=== PATIENT | male | born 1955 | race Caucasian/White ===

== ENCOUNTER → 2017-11-07 12:52 | Outpatient (CLI) | payer OTHER, SELFPAY | PROVIDERS: Family Provider Family Medicine; PCP Family Medicine; Visit Provider Family Medicine | DX: N41.0 Acute prostatitis (principal) | CPT/HCPCS: 72110; 74018 ==

== ENCOUNTER → 2017-12-07 16:41 | Outpatient (CLI) | payer OTHER, SELFPAY ==
--- NOTE | 2017-12-07 16:43 | CT_ITS ---
STUDY: CT ABDOMEN AND PELVIS WITH CONTRAST REASON FOR EXAM: Male, 62 years old. Umbilical hernia repair RADIATION DOSAGE (If Supplied By Facility): CTDIvol = ( 18.80 ) mGy, DLP = ( 2151.43 ) mGycm TECHNIQUE: Transaxial images were obtained from the dome of the diaphragm to the symphysis pubis without oral contrast. 100 ml of Isovue 300 contrast was administered. Sagittal and coronal images were reconstructed. Individualized dose optimization techniques were used for this CT. COMPARISON: None. FINDINGS: The lung bases are clear. The liver is normal. No dilated intrahepatic biliary radicles. The gallbladder is normal with no calcifications within it. There is no pericholecystic fluid collection or streakiness The spleen is normal. The pancreas is normal. Both adrenals are normal. The kidneys are normal with no masses, calculi or hydronephrosis The stomach is normal. There is no bowel distention, acute appendicitis or diverticulitis. No constricting lesions are seen in large bowel. A 1.7 cm nodular density is seen within the linea alba in the umbilical region. May represent a small hematoma. A single surgical clip is in the subcutaneous region at the same level There is no ascites or any free intraperitoneal air. No indication of epiploic appendagitis The vascular structures in the retroperitoneum are normal. There is no retrocrural, retroperitoneal or mesenteric adenopathy. Degenerative changes at L2-3 and L5-S1 disc spaces The urinary bladder is normal.--The prostate is normal. There is no inguinal or pelvic adenopathy. There is no inguinal hernia. CT/Abdomen/Pelvis WITH Contrast IMPRESSION: A small 1.7 cm nodular density within the linea alba around the umbilical region. A small postsurgical hematoma is suspected. No acute appendicitis or diverticulitis Electronically Signed: Vu Casey MD at 3:47 EDT Tel , Service support ,
[2017-12-07 17:06] LABS: CREATININE FINGERSTICK 0.9 mg/dL (0.70-1.30); EGFR FINGERSTICK > 60.0000 mL/min (>60)
== END ==
PROVIDERS: Family Provider Family Medicine; PCP Family Medicine; Referring Provider Family Medicine; Visit Provider Family Medicine
DX: R10.9 Unspecified abdominal pain (principal); R34 Anuria and oliguria
CPT/HCPCS: 74177; Q9967

== ENCOUNTER → 2017-12-29 06:19 | Outpatient (CLI) | payer OTHER, SELFPAY ==
[2017-12-29 07:21] LABS: Absolute Lymphocyte Count 1.37 X10^3/ul (0.83-4.51); Absolute Neutrophil Count 3.1 X10^3/uL (2.0-7.7); Basophil# 0.01 X10^3/uL; Basophil% 0.2 % (0-1); Eosinophil# 0.11 X10^3/uL; Eosinophils% 2.2 % (0-5); Hematocrit 42.8 % (40-54); Hemoglobin 14.7 g/dl (13.0-16.5); Lymphocyte # 1.37 X10^3/ul (4.0); Lymphocyte % 27.4 % (19-41); Mean Corp Hgb Conc 34.3 g/gl (32-36); Mean Corpuscular Hgb 29.6 pg (27.0-32.0); Mean Corpuscular Volume 86.3 fL (80-94); Mean Platelet Vol. 9.7 fl (6.2-12.0); Monocyte# 0.42 X10^3/uL; Monocyte% 8.4 % (0-10); Neutrophil # 3.09 X10^3/uL (2.7-7.7); Neutrophil % 61.8 % (47-70); Platelet Count 208 K/mm3 (150-450); RBC Distribution Width CV 14.2 % (11.6-14.6); RBC Distribution Width SD 44.1 fl (35.1-43.9); Red Blood Count 4.96 M/mm3 (4.6-6.2)
[2017-12-29 07:22] LABS: POSITIVE COUNT NO; POSITIVE DIFFERENTIAL NO; POSITIVE MORPHOLOGY NO
[2017-12-29 07:59] LABS: BUN 14 mg/dL (7-18); Creatinine, Serum 1.07 mg/dL (0.70-1.30); EST Glomerular Filtration Rate 74 mL/min (>60); Glucose 81 mg/dL (74-106)
[2017-12-29 08:00] LABS: AST(SGOT) 19 U/L (15-37); Alanine Aminotransfer ALT/SGPT 26 U/L (16-61); Albumin, Serum 3.8 g/dL (3.2-5.0); Alkaline Phosphatase 78 U/L (45-117); Anion Gap 6 (5-15); BUN/Creat Ratio 13.1 RATIO (10-20); Calcium,Total 8.8 mg/dL (8.5-10.1); Chloride 104 mmol/L (98-107); Cholesterol 235 mg/dL (200); Est Glom Filt Rate - Afr Amer 90 mL/min (>60); Globulin 3.7 g/dL (2.2-4.2); High Density Lipoprotein 57 mg/dL; Protein, Total 7.5 g/dL (6.4-8.2); Sodium Level 140 mmol/L (136-145); T4 Free Direct 0.87 ng/dL (0.76-1.46); Thyroid Stim Hormone (TSH) 1.02 uIU/mL (0.358-3.74); Triglycerides 109 mg/dL; Very Low Density Lipoprotein 22 mg/dL (5-40)
[2018-01-02 14:41] LABS: Testosterone, Free 4.61 ng/dL (5.00-21.00)
[2018-01-03 11:02] LABS: Testosterone, % Free 3.05 % (1.50-4.20); Testosterone, Total 151 ng/dL (264-916)
== END ==
PROVIDERS: Family Provider Family Medicine; PCP Family Medicine; Referring Provider Family Medicine; Visit Provider Family Medicine
DX: Z00.00 Encounter for general adult medical examination without abnormal findings (principal); R63.4 Abnormal weight loss; E29.1 Testicular hypofunction; R61 Generalized hyperhidrosis; Z12.5 Encounter for screening for malignant neoplasm of prostate
CPT/HCPCS: 36415; 80053; 80061; 84153; 84402; 84403; 84439; 84443; 85025; G0103

== ENCOUNTER → 2018-03-31 15:23 | Outpatient (CLI) | payer OTHER, SELFPAY ==
[2018-03-31 18:03] LABS: Absolute Lymphocyte Count 1.76 X10^3/ul (0.83-4.51); Absolute Neutrophil Count 2.4 X10^3/uL (2.0-7.7); Basophil# 0.02 X10^3/uL; Basophil% 0.4 % (0-1); Eosinophils% 2.2 % (0-5); Hematocrit 41.1 % (40-54); Hemoglobin 13.8 g/dl (13.0-16.5); Lymphocyte # 1.76 X10^3/ul (4.0); Lymphocyte % 37.8 % (19-41); Mean Corp Hgb Conc 33.6 g/gl (32-36); Mean Corpuscular Hgb 29.7 pg (27.0-32.0); Mean Corpuscular Volume 88.6 fL (80-94); Mean Platelet Vol. 9.9 fl (6.2-12.0); Monocyte# 0.35 X10^3/uL; Monocyte% 7.5 % (0-10); Neutrophil # 2.42 X10^3/uL (2.7-7.7); Neutrophil % 52.1 % (47-70); Platelet Count 182 K/mm3 (150-450); RBC Distribution Width CV 14.2 % (11.6-14.6); RBC Distribution Width SD 45.6 fl (35.1-43.9); Red Blood Count 4.64 M/mm3 (4.6-6.2); White Blood Count 4.7 K/mm3 (4.4-11.0)
[2018-03-31 18:06] LABS: POSITIVE COUNT NO; POSITIVE DIFFERENTIAL NO; POSITIVE MORPHOLOGY NO
[2018-03-31 18:19] LABS: Anion Gap 7 (5-15); BUN 14 mg/dL (7-18); BUN/Creat Ratio 10.6 RATIO (10-20); Calcium,Total 8.8 mg/dL (8.5-10.1); Chloride 106 mmol/L (98-107); Creatinine, Serum 1.32 mg/dL (0.70-1.30); EST Glomerular Filtration Rate 58 mL/min (>60); Est Glom Filt Rate - Afr Amer 70 mL/min (>60); Glucose 98 mg/dL (74-106); Potassium 3.9 mmol/L (3.5-5.1); Sodium Level 141 mmol/L (136-145)
--- OUTSIDE RECORDS SUMMARY | 2018-06-05 05:24 | XMS RPT_ITS ---
:1955 Author Organization OHIP Support Name Relationship Address Phone D Unavailable Unavailable Unavailable DINERO, KINGSLEY Unavailable [address] + [place] [address] D Unavailable Unavailable Unavailable DINERO, KINGSLEY Unavailable [address] + [place] [address] D Unavailable Unavailable Unavailable DINERO, KINGSLEY Unavailable [address] + [place] [address] D Unavailable Unavailable Unavailable DINERO, KINGSLEY Unavailable [address] + [place] [address] D Unavailable Unavailable Unavailable DINERO, KINGSLEY Unavailable [address] + [place] [address] D Unavailable Unavailable Unavailable DINERO, KINGSLEY Unavailable [address] [place] [address] DR + [place] [address] D Unavailable Unavailable Unavailable DINERO, KINGSLEY Unavailable [address] [phone] [place] [address] D Unavailable Unavailable Unavailable DINERO, KINGSLEY Unavailable [address] [place] [address] DR [phone] [place] [address] D Unavailable Unavailable Unavailable DINERO, KINGSLEY Unavailable [address] [place] [address] DR [phone] [place] [address] DINERO, ANDREAS Unavailable Unavailable Unavailable ROSETTE VAUHGN Unavailable Unavailable Unavailable DINERO, ANDREAS Unavailable Unavailable Unavailable DINERO, VAUGHN Unavailable Unavailable Unavailable Care Team Providers Name Role Phone ARCADIO PAGE Attending Unavailable ARCADIO PAGE Referring Unavailable TRUE IBARRA Primary Care Unavailable ARCADIO PAGE Attending Unavailable JENNIE HAYES Referring Unavailable TRUE IBARRA Primary Care Unavailable True Ibarra Attending Unavailable True Ibarra Primary Care Unavailable Reginaldo Nava Attending Unavailable True Ibarra Referring Unavailable Fred, True Primary Care Unavailable Reginaldo Nava Consulting Unavailable Fred, True Attending Unavailable Fred, True Referring Unavailable Fred, True Primary Care Unavailable Jose Martell Attending Unavailable Fred, True Referring Unavailable Fred, True Attending Unavailable Fred, True Primary Care Unavailable Fred, True Referring Unavailable SuppHang perla Attending Unavailable Suppan, Hang Referring Unavailable Fred, True Primary Care Unavailable Fred, True Attending Unavailable Fred, True Primary Care Unavailable Fred, True Referring Unavailable Jennie Hayes Attending Unavailable Fred, True Referring Unavailable Fred, True Primary Care Unavailable Reginaldo Nava Attending Unavailable Fred, True Primary Care Unavailable Fred, True Referring Unavailable PROBLEMS PROBLEMS DATE TYPE CONDITION / CODE ATTENDING STATUS SOURCE 03/31/2018 Unknown Z01.818 - Encounter True Ibarra Active [place] for other [facility] preprocedural Hospital examination / Repository Z01.818(ICD-10) 12/29/2017 Unknown Z12.5 - Encounter True Ibarra Active [place] for screening for Community malignant neoplasm [facility] prostate / Repository Z12.5(ICD-10) 12/29/2017 Unknown R63.4 - Abnormal True Ibarra Active [place] weight loss / Community R63.4(ICD-10) Hospital Repository 12/29/2017 Unknown 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 / Community E29.1(ICD-10) Hospital Repository 12/29/2017 Unknown Z00.00 - Encounter True Ibarra Active [place] for general adult [facility] medical examination Hospital without abnormal Repository findings / Z00.00(ICD-10) 12/13/2017 Unknown R10.9 - Unspecified FredTrue mackey Active [place] abdominal pain / Community R10.9(ICD-10) Hospital Repository 11/07/2017 Unknown N41.0 - Acute FredTrue mackey Active [place] prostatitis / Community N41.0(ICD-10) Hospital Repository 06/08/2017 Unknown D70.9 - Reginaldo Nava Active [place] Neutropenia, Community unspecified / Hospital D70.9(ICD-10) Repository 06/08/2017 Unknown D72.819 - Decreased PraReginaldo boateng Active [place] white blood cell Community count, unspecified Hospital / D72.819(ICD-10) Repository 06/08/2017 Unknown 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 / Community D47.2(ICD-10) Hospital Repository 05/02/2017 Admitting Shoulder Pain / ARCADIO PAGE Active [facility] diagnosis [id number]() [facility] Repository 05/02/2017 Admitting Pain in left ARCADIO PAGE Active [facility] diagnosis shoulder / [facility] M25.512(ICD-10) [facility] Repository PROCEDURES PROCEDURES No Procedure Records FoundRESULTS RESULTS CBC W/DIFF, AUTOMATED Collected: 03/31/2018 Status: F Source: [place] 3:24 PM [facility] REPOSITORY TYPE CODE TESTS RESULT OUT OF RANGE REFERENCE UNITS LAB L100.1000 4.4-11.0 K/mm3 Normal WBC 4.7 LAB L100.1200 4.6-6.2 M/mm3 Normal RBC 4.64 LAB L100.1300 13.0-16.5 g/dl Normal HGB 13.8 LAB L100.1400 40-54 % Normal HCT 41.1 LAB L100.1500 80-94 fL Normal MCV 88.6 LAB L100.1600 27.0-32.0 pg Normal MCH 29.7 LAB L100.1700 32-36 g/gl Normal MCHC 33.6 LAB L100.1810 11.6-14.6 % Normal RDW CV 14.2 LAB L100.1820 35.1-43.9 fl High RDW SD 45.6 LAB L100.1900 150-450 K/mm3 Normal PLT 182 LAB L100.2000 6.2-12.0 fl Normal MPV 9.9 LAB L100.2100 47-70 % Normal NEUT% 52.1 LAB L100.2200 19-41 % Normal LY% 37.8 LAB L100.2300 0-10 % Normal MONO% 7.5 LAB L100.2400 0-5 % Normal EO% 2.2 LAB L100.2500 0-1 % Normal BASO% 0.4 LAB L100.2550 0.0-0.9 % Normal IM GRAN % 0.000 Result Comment: IG% - Immature Granulocytes (promyelocytes, myelocytes and metamyelocytes) > 1% indicates that a LEFT SHIFT is Present. LAB L100.2620 2.0-7.7 X10 3/uL Normal Absolute Neut 2.4 LAB L100.2720 0.83-4.51 X10 3/ul Normal Absolute Lymph 1.76 Performed By: #### L100.0100 #### [facility] [address] [place], [address] BASIC METABOLIC Collected: 03/31/2018 Status: F Source: [place] PROFILE (BMP) 3:24 PM [facility] TYPE CODE TESTS RESULT OUT OF RANGE REFERENCE UNITS LAB L501.0100 74-106 mg/dL Normal GLU 98 Result Comment: Please note revised GLUCOSE reference range effective 2017. LAB L501.1000 7-18 mg/dL Normal BUN 14 LAB L501.1100 0.70-1.30 mg/dL High CREAT,SERUM 1.32 Result Comment: The validity of the calculated GFR AND GFRAA in patients over 70 years has not been determined. Clinical correlation is essential. LAB L501.1110 >60 mL/min Low EST GFR 58 Result Comment: Non- GFR Calc LAB L501.1115 >60 mL/min Normal EST GFR - AA 70 Result Comment: GFR Calc LAB L501.1300 10-20 RATIO Normal BUN/CRE 10.6 LAB L501.2200 8.5-10.1 mg/dL CA Normal 8.8 LAB L501.5300 136-145 mmol/L NA Normal 141 LAB L501.5600 3.5-5.1 mmol/L K Normal 3.9 LAB L501.5900 98-107 mmol/L CL Normal 106 LAB L501.6100 21.0-32.0 mmol/L Normal CO2 28.0 LAB L501.6200 5-15 Normal GAP 7 Performed By: #### L500.2500 #### [facility] [address] [place], [place], [address] CBC W/DIFF, AUTOMATED Collected: 12/29/2017 Status: F Source: [place] 6:22 AM [facility] [place] TYPE CODE TESTS RESULT OUT OF RANGE REFERENCE UNITS LAB L100.1000 4.4-11.0 K/mm3 Normal WBC 5.0 LAB L100.1200 4.6-6.2 M/mm3 Normal RBC 4.96 LAB L100.1300 13.0-16.5 g/dl Normal HGB 14.7 LAB L100.1400 40-54 % Normal HCT 42.8 LAB L100.1500 80-94 fL Normal MCV 86.3 LAB L100.1600 27.0-32.0 pg Normal MCH 29.6 LAB L100.1700 32-36 g/gl Normal MCHC 34.3 LAB L100.1810 11.6-14.6 % Normal RDW CV 14.2 LAB L100.1820 35.1-43.9 fl High RDW SD 44.1 LAB L100.1900 150-450 K/mm3 Normal PLT 208 LAB L100.2000 6.2-12.0 fl Normal MPV 9.7 LAB L100.2100 47-70 % Normal NEUT% 61.8 LAB L100.2200 19-41 % Normal LY% 27.4 LAB L100.2300 0-10 % Normal MONO% 8.4 LAB L100.2400 0-5 % Normal EO% 2.2 LAB L100.2500 0-1 % Normal BASO% 0.2 LAB L100.2550 0.0-0.9 % Normal IM GRAN % 0.000 Result Comment: IG% - Immature Granulocytes (promyelocytes, myelocytes and metamyelocytes) > 1% indicates that a LEFT SHIFT is Present. LAB L100.2620 2.0-7.7 X10 3/uL Normal Absolute Neut 3.1 LAB L100.2720 0.83-4.51 X10 3/ul Normal Absolute Lymph 1.37 Performed By: #### L100.0100 #### [facility] [address] [place], [place], [address] COMPREHENSIVE METABOLIC Collected: 12/29/2017 Status: F Source: [facility] 6:22 AM [facility] Order Comment: Has Patient had X-rays with Contrast this admission? N TYPE CODE TESTS RESULT OUT OF RANGE REFERENCE UNITS LAB L501.0100 74-106 mg/dL Normal GLU 81 Result Comment: Please note revised GLUCOSE reference range effective 2017. LAB L501.1000 7-18 mg/dL Normal BUN 14 LAB L501.1100 0.70-1.30 mg/dL Normal CREAT,SERUM 1.07 Result Comment: The validity of the calculated GFR AND GFRAA in patients over 70 years has not been determined. Clinical correlation is essential. LAB L501.1110 >60 mL/min Normal EST GFR 74 Result Comment: Non- GFR Calc LAB L501.1115 >60 mL/min Normal EST GFR - AA 90 Result Comment: GFR Calc LAB L501.1300 10-20 RATIO Normal BUN/CRE 13.1 LAB L501.1500 6.4-8.2 g/dL T Normal PROT 7.5 LAB L501.1800 3.2-5.0 g/dL Normal ALB 3.8 LAB L501.1950 2.2-4.2 g/dL Normal GLOB 3.7 LAB L501.2000 0.9-2.4 RATIO Normal A/G 1.0 LAB L501.2200 8.5-10.1 mg/dL CA Normal 8.8 LAB L501.4100 15-37 U/L Normal AST 19 LAB L501.4305 45-117 U/L Normal ALK P 78 LAB L501.4405 16-61 U/L Normal ALT 26 LAB L501.4600 0.20-1.00 mg/dL T Normal BILI 0.50 LAB L501.5300 136-145 mmol/L NA Normal 140 LAB L501.5600 3.5-5.1 mmol/L K Normal 4.0 LAB L501.5900 98-107 mmol/L CL Normal 104 LAB L501.6100 21.0-32.0 mmol/L Normal CO2 30.0 LAB L501.6200 5-15 Normal GAP 6 Performed By: #### L500.4050, L500.4100, L501.9520, L501.9910, L506.0400 #### [facility] [address] [place], [address] LIPID PROFILE Collected: 12/29/2017 Status: F Source: [place] 6:22 AM [facility] Order Comment: Has Patient had X-rays with Contrast this admission? N TYPE CODE TESTS RESULT OUT OF RANGE REFERENCE UNITS LAB L501.4900 200 mg/dL High CHOL 235 Result Comment: <200 mg/dL Desirable 200-240 mg/dL Borderline >240 mg/dL High Risk LAB L501.5000 mg/dL Normal TRIG 109 Result Comment: The drugs N-Acetylcysteine and Metamizole may falsely depress this assay. Serum Triglycerides Reference Interval Normal <150 mg/dL Borderline high 150 - 199 mg/dL High 200 - 499 mg/dL Very High > or = 500 mg/dL LAB L501.6400 mg/dL Normal HDL 57 Result Comment: The drugs N-Acetylcysteine and Metamizole may falsely depress this assay. Reference Range HDL <40 mg/dL Low HDL Cholesterol HDL >or= 60 mg/dL High HDL Cholesterol LAB L501.6500 0-130 mg/dL High LDL 156 LAB L501.6600 5-40 mg/dL Normal VLDL 22 Performed By: #### L500.4050, L500.4100, L501.9520, L501.9910, L506.0400 #### [facility] [address] [facility] [place], [address] THYROID STIM HORMONE Collected: 12/29/2017 Status: F Source: [place] (TSH) 6:22 AM [facility] Order Comment: Has Patient had X-rays with Contrast this admission? N TYPE CODE TESTS RESULT OUT OF RANGE REFERENCE UNITS LAB L501.9520 0.358-3.74 uIU/mL Normal TSH 1.02 Performed By: #### L500.4050, L500.4100, L501.9520, L501.9910, L506.0400 #### [facility] [address] [place], [address] PSA,TOTAL - ANNUAL Collected: 12/29/2017 Status: F Source: [place] SCREEN 6:22 AM [facility] Order Comment: Has Patient had X-rays with Contrast this admission? N TYPE CODE TESTS RESULT OUT OF RANGE REFERENCE UNITS LAB L501.9910 0.00-4.00 ng/mL Normal PSA,TOT 0.70 SCREEN Result Comment: This test was performed using the TPSA assay method for the [employer] chemistry system. Values obtained with different assay methods cannot be used interchangably. When changing PSA assays in the course of monitoring a patient, additional sequential testing should be carried out to confirm baseline values. Performed By: #### L500.4050, L500.4100, L501.9520, L501.9910, L506.0400 #### [facility] [address] [place], [address] T4 FREE DIRECT Collected: 12/29/2017 Status: F Source: [place] 6:22 AM [facility] Order Comment: Has Patient had X-rays with Contrast this admission? N TYPE CODE TESTS RESULT OUT OF RANGE REFERENCE UNITS LAB L506.0400 0.76-1.46 ng/dL Normal T4 FREE 0.87 DIRECT Performed By: #### L500.4050, L500.4100, L501.9520, L501.9910, L506.0400 #### [facility] [address] [place], [address] TESTOSTERONE, TOTAL / Collected: 12/29/2017 Status: F Source: [place] FREE 6:22 AM [facility] Order Comment: Has Patient had X-rays with Contrast this admission? N TYPE CODE TESTS RESULT OUT OF RANGE REFERENCE UNITS LAB L3100.5320 264-916 ng/dL Low 151 TESTOSTER,TO UNRULY Result Comment: Adult male reference interval is based on a population of healthy nonobese males (BMI <30) between 19 and 39 years old. Aniceto et.al. JCEM 2017,102;8882-7543. PMID: [id number]. LAB L3100.5340 5.00-21.00 ng/dL Low TESTOSTER,FREE 4.61 LAB L3100.5360 1.50-4.20 % TESTOSTER %FREE Normal 3.05 Result Comment: Performed at: - [facility] [id number] Showroom Sales Assistant: Jose Angel Marks PhD, Phone: [phone] Performed at: [facility] [id number] Showroom Sales Assistant: Toribio Macario MD, Phone: [phone] Performed By: #### L3100.5310 #### [facility] (refer to report for specific site) refer to report for address and phone number ORTHOPEDIC VISIT Observed: 12/13/2017 Status: F Source: [place] REPORT 4:03 PM [facility] [address] [place] [address] OFFICE VISIT Date of Service: 12/13/17 MR#: [id number] Acct: [id number] Name: VAUGHN DINERO Rep #: [id number] : 1955 Provider: BIPIN Garcia Age/Sex: 62/M Location: [facility] Status: Signed with Addenda ADDENDUM by Blaise Valdez on 12/13/17 at 1603 OFFICE PROCEDURES Office Procedure Documentation entered by Blaise Valdez 12/13/17 16:03: Ortho Injections Injections Yes Knee Bilateral Details: Obtained consent for injection. Under sterile conditions, injected the patients right and left knee with a 10cc cocktail of 8cc bupivacaine and 2cc kenalog. The patient tolerated the injection well without any noted complication. Patient should call our office if redness develops, pain worsens or if they have any concerns. 12/13/17 1603 <Electronically signed by Blaise Valdez > Date Blaise Valdez cc: * Signed Intake Intake Visit Reasons: Bilat Knee pain Chief Complaint: Follow-up neutropenia and gammopathy Allergies ketorolac tromethamine [From Toradol] Allergy (Verified 06/09/17 14:32) Shortness of breath pollen extracts Allergy (Verified 06/09/17 14:32) Unknown Sulfa (Sulfonamide Antibiotics) Allergy (Verified 06/09/17 14:32) Swelling tolmetin sodium [From Tolectin] Allergy (Verified 06/09/17 14:32) Hives tetracycline [Tetracycline] Adverse Reaction (Verified 06/09/17 14:32) Other Medications Buspirone HCl 7.5 mg PO DAILY 01/01/14 [History Confirmed 06/09/17] Fexofenadine/Pseudoephedrine [Katherin-D 24 Hour Tablet] 1 ea PO DAILY 01/01/14 [History Confirmed 06/09/17] Multivitamins,Therapeutic [Multivitamin] 1 tab PO DAILY 01/01/14 [History Confirmed 06/09/17] Prasterone (Dhea) [Dhea 25] 25 mg PO DAILY 01/01/14 [History Confirmed 06/09/17] Testosterone [Testim] 5 gm TD DAILY 01/01/14 [History Confirmed 06/09/17] Ibuprofen [Motrin] 800 mg PO TID PRN PRN 01/12/16 [History Confirmed 06/09/17] Oxycodone HCl/Acetaminophen [Oxycodon-Acetaminophen 7.5-325] 1 ea PO TID PRN 09/16/16 [History Confirmed 06/09/17] PFSH Medical History Back problem (Acute) Arthritis (Chronic) GERD (gastroesophageal reflux disease) (Chronic) Hypertension (Chronic) 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 He states that he has dull ache all day but the pain increases at night. He uses aleve at night because his pain medication tends to make him feel wired so he doesnt use them at night. He has mild swelling in the right knee, complains of tightness and anterior knee pain. Denies numbness, tingling or other associated symptoms. He has crepitus. ROS Musc Reports joint pain, Reports joint swelling, Reports limited joint movement, Reports stiffness, Reports as per HPI Ortho Exam Right Knee Swelling: Yes (very minor) Homans Sign: No Knee ROM: Yes ROM-Extension -20 to 0, Yes ROM-Flexion 0-140 Examination: Yes Med jt line tenderness, Yes Lat jt line tenderness, No TTP inf pole patella, Yes Crepitus, No Pain with flexion, No Pain with extention, No Dennis's Test Quad Atrophy: No Stability: NML: Anterior Drawer, NML: Posterior Drawer Popliteal Adenopathy: No Patella Grind: Yes KNEE: Patient has FROM with some evident crepitus / grinding with movements. He has normal 5/5 strength today. Some bilateral joint line pains with a negative [place]. Left Knee Swelling: Yes Homans Sign: No Knee ROM: Yes ROM-Extension -20 to 0, Yes ROM-Flexion 0-140 Examination: Yes med jt line tenderness, Yes Lat jt line tenderness, No TTP inf pole patella, Yes Crepitus, No Dennis's Test, No Pain with flexion Quad Atrophy: No Stability: NML: Anterior Drawer, NML: Posterior Drawer Popliteal Adenopathy: No Patella Grind: Yes KNEE: patient has FROM of the knee with evident crepitus / grinding with movements. He has normal 5/5 strength today in office. He has bilateral joint line pains with a negative [place]rays. Assessment AND Plan Problems 1. Osteoarthritis, multiple sites M15.9 2. Arthritis of both knees M17.0 Plan Patient has history of knee pains due to osteoarthritis. He has had injections in the past and would like to proceed with injections into the knee again today. We discussed physical therapy and even looking into possible gel injections depending on the duration of relief he has. We discussed that if he does require another injection after 3 months that we should repeat X-rays at that time as it has been a year. Notify of any other pains / problems in the mean time. Coding Level of Care Code Off vis,est,level 3 Diagnoses Osteoarthritis, multiple sites M15.9 Arthritis of both knees M17.0 12/13/17 1345 <Electronically signed by Martell VOSS> Date Martell VOSS Cosigner Signature: Date (if applicable) CC: CREATININE FINGERSTICK Collected: 12/07/2017 Status: F Source: [place] 5:00 PM [facility] TYPE CODE TESTS RESULT OUT OF RANGE REFERENCE UNITS LAB L9100.0210 0.70-1.30 mg/dL Normal CREATININE WB 0.9 LAB L9100.0220 >60 mL/min EGFR WB Normal > 60.0000 Performed By: #### L9100.0200 #### [facility] Point of Care [address] [place] [address] ABDOMEN/PELVIS WITH Observed: 12/07/2017 Status: F Source: [place] CONTRAST 4:44 PM [facility] Imaging Services [address] [place] [address] Abdomen/Pelvis WITH Contrast MR#: [id number] Acct: [id number] Name: VAUGHN DINERO Rep #: [id number] : 1955 M 62 From: Vu Casey MD PCP: True Ibarra DO Status: REG CLI Study: Abdomen/Pelvis WITH Contrast Date of Exam: 12/07/17 Exam# [id number] Ordering Dr: True Ibarra DO STUDY: CT ABDOMEN AND PELVIS WITH CONTRAST REASON FOR EXAM: Male, 62 years old. Umbilical hernia repair RADIATION DOSAGE (If Supplied By Facility): CTDIvol = ( 18.80 ) mGy, DLP = ( 2151.43 ) mGycm TECHNIQUE: Transaxial images were obtained from the dome of the diaphragm to the symphysis pubis without oral contrast. 100 ml of Isovue 300 contrast was administered. Sagittal and coronal images were reconstructed. Individualized dose optimization techniques were used for this CT. COMPARISON: None. FINDINGS: The lung bases are clear. The liver is normal. No dilated intrahepatic biliary radicles. The gallbladder is normal with no calcifications within it. There is no pericholecystic fluid collection or streakiness The spleen is normal. The pancreas is normal. Both adrenals are normal. The kidneys are normal with no masses, calculi or hydronephrosis The stomach is normal. There is no bowel distention, acute appendicitis or diverticulitis. No constricting lesions are seen in large bowel. A 1.7 cm nodular density is seen within the linea alba in the umbilical region. May represent a small hematoma. A single surgical clip is in the subcutaneous region at the same level There is no ascites or any free intraperitoneal air. No indication of epiploic appendagitis The vascular structures in the retroperitoneum are normal. There is no retrocrural, retroperitoneal or mesenteric adenopathy. Degenerative changes at L2-3 and L5-S1 disc spaces The urinary bladder is normal.--The prostate is normal. There is no inguinal or pelvic adenopathy. There is no inguinal hernia. CT/Abdomen/Pelvis WITH Contrast IMPRESSION: A small 1.7 cm nodular density within the linea alba around the umbilical region. A small postsurgical hematoma is suspected. No acute appendicitis or diverticulitis Electronically Signed: Vu Casey MD at 3:47 EDT Tel , Service support , CC: True Ibarra DO Nutrition Faculty Member: Signed ABDOMEN SINGLE VIEW Observed: 11/07/2017 Status: F Source: [place] 1:20 PM [facility] Imaging Services [address] [place] [address] Abdomen Single View MR#: [id number] Acct: [id number] Name: VAUGHN DINERO Rep #: [id number] : 1955 M 62 From: Sony Rudolph MD PCP: True Ibarra DO Status: REG CLI Study: Abdomen Single View Date of Exam: 11/07/17 Exam# [id number] Ordering Dr: True Ibarra DO STUDY: X-RAY - ABDOMEN/PELVIS REASON FOR EXAM: Male, 62 years old. Right lower posterior back pain. TECHNIQUE: Two AP supine views of the abdomen and pelvis. COMPARISON: None. FINDINGS: Non-visualized lung bases. There is an unremarkable bowel gas pattern. There is no demonstrated free abdominal air. The visualized liver and spleen are grossly normal in size and morphology. Punctate calcifications projecting over the upper poles of the renal shadows suggest bilateral nephrolithiasis. Normal soft tissue structures. There are degenerative changes of the lower lumbar spine and bilateral sacroiliac joints. RAD/Abdomen Single View IMPRESSION: 1. Nonspecific bowel gas pattern. 2. Bilateral nephrolithiasis, perhaps better seen on oblique views of the lumbar spine also done today. 3. Degenerative changes of the lower lumbar spine and sacroiliac joints. Electronically Signed: Matt Rudolph MD at 15:59 EDT , Service support , CC: True Ibarra DO Nutrition Faculty Member: Signed L/S SPINE MIN 4 Observed: 11/07/2017 Status: F Source: [place] VIEWS 1:20 PM [facility] Imaging Services [address] [place] [address] L/S Spine Min 4 Views MR#: [id number] Acct: [id number] Name: VAUGHN DINERO Rep #: [id number] : 1955 M 62 From: Sony Rudolph MD PCP: True Ibarra DO Status: REG CLI Study: L/S Spine Min 4 Views Date of Exam: 11/07/17 Exam# [id number] Ordering Dr: True Ibarra DO STUDY: X-RAY - LUMBAR SPINE REASON FOR EXAM: Male, 62 years old. Right posterior lower back pain. TECHNIQUE: 5 view(s) of the lumbar spine were obtained. COMPARISON: None FINDINGS: Normal lumbar lordosis. There is no substantial scoliosis. There is minor grade 1 anterolisthesis of L4 on L5 and slight retrolisthesis of L2 on L3. There is multilevel endplate spondylosis of the lumbar vertebrae. There is multi-level degenerative disc disease with multi-level disc space narrowing. There is no demonstrated osseous destructive lesion or fracture. Hypertrophic degenerative arthroses are noted in the mid to lower lumbar facet joints. There are also degenerative arthrosis of the bilateral sacroiliac joints. Small stones project in the upper poles of the bilateral kidneys. RAD/L/S Spine Min 4 Views IMPRESSION: 1. Degenerative changes of the spine and sacroiliac joints, as detailed above. 2. Bilateral nephrolithiasis. Electronically Signed: Matt Rudolph MD at 16:01 EDT , Service support , CC: True Ibarra DO Nutrition Faculty Member: Signed ORTHOPEDIC VISIT Observed: 07/08/2017 Status: F Source: NIKKI REPORT 10:16 AM [facility] [place] [facility] Orthopaedics AND Sports Medicine [address] [place] [address] OFFICE VISIT Date of Service: 07/08/17 MR#: [id number] Acct: [id number] Name: VAUGHN DINERO Rep #: [id number] : 1955 Provider: Jennie Hayes DO Age/Sex: 62/M Location: [facility] [place] Status: Signed Intake Intake Visit Reasons: BILAT KNEE Chief Complaint: Follow-up neutropenia and gammopathy Allergies ketorolac tromethamine [From Toradol] Allergy (Verified 06/09/17 14:32) Shortness of breath pollen extracts Allergy (Verified 06/09/17 14:32) Unknown Sulfa (Sulfonamide Antibiotics) Allergy (Verified 06/09/17 14:32) Swelling tolmetin sodium [From Tolectin] Allergy (Verified 06/09/17 14:32) Hives tetracycline [Tetracycline] Adverse Reaction (Verified 06/09/17 14:32) Other Medications Buspirone HCl [Buspirone HCl] 7.5 mg PO DAILY 01/01/14 [History Confirmed 06/09/17] Fexofenadine/Pseudoephedrine [Katherin-D 24 Hour Tablet] 1 ea PO DAILY 01/01/14 [History Confirmed 06/09/17] Multivitamins,Therapeutic [Multivitamin] 1 tab PO DAILY 01/01/14 [History Confirmed 06/09/17] Prasterone (Dhea) [Dhea 25] 25 mg PO DAILY 01/01/14 [History Confirmed 06/09/17] Testosterone [Testim] 5 gm TD DAILY 01/01/14 [History Confirmed 06/09/17] Ibuprofen [Motrin] 800 mg PO TID PRN PRN 01/12/16 [History Confirmed 06/09/17] Oxycodone HCl/Acetaminophen [Oxycodon-Acetaminophen 7.5-325] 1 ea PO TID PRN 09/16/16 [History Confirmed 06/09/17] PFSH Medical History Back problem (Acute) Arthritis (Chronic) GERD (gastroesophageal reflux disease) (Chronic) Hypertension (Chronic) 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) Surgical History S/P hernia repair (Inactive) Status post reverse total shoulder replacement (Inactive) s/p elbows (Inactive) s/p feet (Inactive) s/p forearms (Inactive) s/p hands (Inactive) s/p neck (Inactive) s/p shoulders (Inactive) Family History Mother Lung cancer Father Cancer Depression Social History Smoking Status: Never smoker HPI BILAT KNEE: Details: VAUGHN DINERO is a 62 year old M here today for Ortho Exam Right Knee Skin/Wound: Yes CDI Contralateral Normal: Yes Swelling: No Homans Sign: No Knee ROM: Yes ROM-Extension -20 to 0, Yes ROM-Passive Flexion 0-140, Yes ROM-Flexion 0-140, Yes ROM-Passive Extension -10 to 0 Examination: Yes TTP inf pole patella, Yes Pain with flexion, Yes Crepitus, No Med jt line tenderness, No Lat jt line tenderness, No Pain with extention, No Dennis's Test, No Dial at 90, No Dial at 60, No Duck Walk Quad Atrophy: No Stability: NML: Anterior Drawer, NML: Marco, NML: Posterior Drawer, NML: Valgus 0, NML: Valgus 30, NML: Varus 0, NML: Varus 30, NML: Dial 90, NML: Dial 30 Popliteal Adenopathy: No Apprehension with Lateral Translation: No Patellar Tilt Normal: Yes Patella Grind: No Left Knee Skin/Wound: Yes CDI Contralateral Normal: Yes Swelling: No Homans Sign: No Knee ROM: Yes ROM-Extension -20 to 0, Yes ROM-Flexion 0-140, Yes ROM-Passive Extension -10 to 0, Yes ROM-Passive Flexion 0-140 Examination: No med jt line tenderness, No Lat jt line tenderness, Yes TTP inf pole patella, Yes Crepitus, Yes Pain with flexion, No Dennis's Test, No Dial at 90, No Dial at 60, No Duck Walk Quad Atrophy: No Stability: NML: Anterior Drawer, NML: Marco, NML: Posterior Drawer, NML: Valgus 0, NML: Valgus 30, NML: Varus 0, NML: Varus 30, NML: Dial 90, NML: Dial 30 Popliteal Adenopathy: No Apprehension with Lateral Translation: No Patellar Tilt Normal: Yes Patella Grind: No Office Procedures Ortho Injections Injections Yes Knee Bilateral Details: Obtained consent for injection. Under sterile conditions, injected the patients bilateral knee with a 10cc cocktail of 8cc bupivacaine and 2cc kenalog each. The patient tolerated the injection well without any noted complication. Patient should call our office if redness develops, pain worsens or if they have any concerns. 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 Chronic pain of both knees M25.561; M25.562; G89.29 2. Internal derangement of both knees M23.91; M23.92 Plan Assessment: Bilateral knee pain bilateral internal derangement. Plan: This point time it sounds like patient to have a little bit of overuse symptoms and pocketing some Hoffa pad and perhaps some patellofemoral pain off and working out. Patient this point time would like to try some injections which I think is appropriate. The patient that he would fail this I did send him for formal physical therapy but he is a very active male who tries to stay athletically fit I think he can go home exercise program as well which we will provide. Obtained consent for injection. Under sterile conditions, injected the patients right knee with a 10cc cocktail of 8cc bupivacaine and 2cc kenalog. The patient tolerated the injection well without any noted complication. Patient should call our office if redness develops, pain worsens or if they have any concerns. Obtained consent for injection. Under sterile conditions, injected the patients left knee with a 10cc cocktail of 8cc bupivacaine and 2cc kenalog . The patient tolerated the injection well without any noted complication. Patient should call our office if redness develops, pain worsens or if they have any concerns. i n the context of follow-up with me 3 months as needed. Patient requires further treatment he can see me until I leave my practice in September otherwise he can follow-up with my partner. Orders Orders: Medications Discontinued: Kenalog (triamcinolone acetonide) D4 mg (0.4 mL) IM ONCE NS M25.561, M25.562 Allyssa Pace iscontinued Reason: Office Medication has been Documented as given Coding Level of Care Code No Charge Diagnoses Chronic pain of both knees M25.561; M25.562; G89.29 Chronicity: chronic Internal derangement of both knees M23.91; M23.92 Additional Codes bilingual nanny.knee (20678) 07/08/17 1016 <Electronically signed by Jennie COFFMAN Date Jennie Hayes DO Cosigntawanna Signature: Date (if applicable) CC: ONCOLOGY VISIT REPORT Observed: 06/09/2017 Status: F Source: NIKKI 2:57 PM [facility] [place] [facility] [place] [address] OFFICE VISIT Date of Service: 06/09/17 1450 MR#: [id number] Acct: [id number] Name: VAUGHN DINERO Rep #: [id number] : 1955 From: Reginaldo Nava MD Age/Sex: 62/M Location: OMD Status: Signed Subjective - Date of Service Date of Service:: 06/09/17 - Chief Complaint Follow-up neutropenia and gammopathy - History of Present Illness 62y.o.man presented with Leukopenia/Neutropenia, had a bone marrow bx on 07/02/2014 which showed Normocellular bone marrow, Trilineage hematopoiesis with no significant pathologic change. He is on observation. Comes in for follow up. - Past Medical/Social History Past Medical History Past Medical History: Arthritis,GERD,Hernia,Hypertension Other Past Medical History: Prostate Back problems Hormone def. feet Left shoulder x 5 Left shoulder replacement Mar 2016 Other Cancer History: Idiopathic Neutroprnia Family History Paternal Past Medical History: Emphysema Paternal History of Cancer Bladder cancer Maternal History of Cancer: Brain cancer,Lung cancer Social History Smoking Status Never smoker Review of Systems Constitutional:: Denies: Fever, Sweats, Weight loss, Appetite change, Chills Cardiovascular:: Denies: Chest pain, Palpitations, Dyspnea on exertion, Orthopnea, PND, Shortness of breath Respiratory: Denies: Cough, Hemoptysis, Shortness of Breath, Wheezing Gastrointestinal:: Denies: Abdominal pain, Nausea, Vomiting, Diarrhea, Constipation, Hematochezia Genitourinary: Denies: Dysuria, Hematuria, 15, Flank pain Musculoskeletal:: Denies: Back pain, Myalgia, Arthralgia Skin: Denies: Rash, Skin Changes, Wounds Neurological:: Denies: Headache, Dizziness, Visual changes, Tinnitus, Hearing loss Psychiatric: Denies: Anxiety, Depression, Homicidal Ideations, Suicidal Ideations Vital Signs Height 56 ft 10.75 in Weight: 89.811 kg Weight in Pounds 198.0 lbs Pulse Ox 97 - Physical Exam General: Alert, Oriented x3, No apparent distress HEENT: Atraumatic, PERRLA, EOMI, Normocephalic Oropharynx:: Dry mucosa Neck:: Supple, Trachea midline. Negative for: JVD, bilateral Cardiac:: Regular rate, Regular rhythm, Normal S1, Normal S2. Negative for: Murmur Lungs: Clear to auscultation, Excusion symmetrical. Negative for: Rhonchi, Wheezes Abdomen:: Bowel sounds x 4, Soft, Non-tender, Non-distended. Negative for: Hepatosplenomegaly Extremities:: Negative for: Cyanosis, Edema Neurological: Neuro grossly intact Skin:: Negative for: Lesions, Rash, Petechiae, Ecchymosis Psychiatric:: Appropriate affect, Euthymic Lymphatics:: Negative for: Cervical lymphadenopathy, Supraclavicular lymphadenopathy, Axillary lymphadenopathy Laboratory Data: Laboratory Tests WBC 3.9 L Absolute Neuts (auto) 2.1 Creatinine 1.12 Calcium 9.1 IgG 845 IgA 228 IgM 36 Assessment and Plan Leukopenia, neutropenia resolved. Asymptomatic. No monoclonal proteins. Plan is to continue observation. RTC 1 yr with cbc, cmp. Medications: Prescriptions This Visit Medication Instructions Recorded Oxycodone HCl/Acetaminophen 1 ea PO TID PRN 09/16/16 [Oxycodon-Acetaminophen 7.5-325] Primary Care Provider: True Ibarra DO Referring Provider: True Ibarra DO - Problem List (1) Leukopenia Status: Chronic Qualifiers: Neutropenia type: unspecified (2) Gammopathy Status: Resolved Code Visit Office Visits / Consults: 08990 OV L3 Est 06/09/17 1457 <Electronically signed by Regnialdo Nava MD> Date Reginaldo Nava MD Cosigner Signature: Date (if applicable) CC: CBC W/DIFF, AUTOMATED Collected: 06/06/2017 Status: F Source: NIKKI 9:06 AM [facility] [place] Order Comment: Reason for Laboratory Test . TYPE CODE TESTS RESULT OUT OF RANGE REFERENCE UNITS LAB L100.1000 4.4-11.0 K/mm3 Low WBC 3.9 LAB L100.1200 4.6-6.2 M/mm3 Normal RBC 4.74 LAB L100.1300 13.0-16.5 g/dl Normal HGB 13.9 LAB L100.1400 40-54 % Normal HCT 40.0 LAB L100.1500 80-94 fL Normal MCV 84.4 LAB L100.1600 27.0-32.0 pg Normal MCH 29.3 LAB L100.1700 32-36 g/gl Normal MCHC 34.8 LAB L100.1810 11.6-14.6 % Normal RDW CV 14.0 LAB L100.1820 35.1-43.9 fl Normal RDW SD 42.7 LAB L100.1900 150-450 K/mm3 Normal PLT 245 LAB L100.2000 6.2-12.0 fl Normal MPV 9.5 LAB L100.2100 47-70 % Normal NEUT% 54.8 LAB L100.2200 19-41 % Normal LY% 36.1 LAB L100.2300 0-10 % Normal MONO% 7.0 LAB L100.2400 0-5 % Normal EO% 1.3 LAB L100.2500 0-1 % Normal BASO% 0.8 LAB L100.2550 0.0-0.9 % Normal IM GRAN % 0.000 Result Comment: IG% - Immature Granulocytes (promyelocytes, myelocytes and metamyelocytes) > 1% indicates that a LEFT SHIFT is Present. LAB L100.2620 2.0-7.7 X10 3/uL Normal Absolute Neut 2.1 LAB L100.2720 0.83-4.51 X10 3/ul Normal Absolute Lymph 1.39 Performed By: #### L100.0100, L500.4050 #### [facility] [address] [place], [place], [address] COMPREHENSIVE METABOLIC Collected: 06/06/2017 Status: F Source: [facility] 9:06 AM [facility] [place] Order Comment: Reason for Laboratory Test . TYPE CODE TESTS RESULT OUT OF RANGE REFERENCE UNITS LAB L501.0100 74-106 mg/dL Normal GLU 102 Result Comment: Fasting Glucose result from 100 to 125 mg/dL suggests IMPAIRED HOMEOSTASIS per A.D.A. criteria. Please note revised GLUCOSE reference range effective 2017. LAB L501.1000 7-18 mg/dL Normal BUN 11 LAB L501.1100 0.70-1.30 mg/dL Normal CREAT,SERUM 1.12 Result Comment: The validity of the calculated GFR AND GFRAA in patients over 70 years has not been determined. Clinical correlation is essential. LAB L501.1110 >60 mL/min Normal EST GFR 70 Result Comment: Non- GFR Calc LAB L501.1115 >60 mL/min Normal EST GFR - AA 85 Result Comment: GFR Calc LAB L501.1255 ml/min Normal Estimated CRCL 69.70 LAB L501.1300 10-20 RATIO Low BUN/CRE 9.8 LAB L501.1500 6.4-8. g/dL Normal 2 T PROT 7.6 LAB L501.1800 3.2-5. g/dL Normal 0 ALB 3.7 LAB L501.1950 2.2-4. g/dL Normal 2 GLOB 3.9 LAB L501.2000 0.9-2. RATIO Normal 4 A/G 0.9 LAB L501.2200 8.5-10 mg/dL Normal .1 CA 9.1 LAB L501.4100 15-37 U/L Normal AST 27 LAB L501.4305 45-117 U/L Normal ALK P 107 LAB L501.4405 16-61 U/L Normal ALT 32 Result Comment: Please note revised ALT reference range effective 2017. LAB L501.4600 0.20-1.00 mg/dL Normal T BILI 0.30 LAB L501.5300 136-145 mmol/L Normal NA 141 LAB L501.5600 3.5-5.1 mmol/L Normal K 4.3 LAB L501.5900 98-107 mmol/L High CL 109 LAB L501.6100 21.0-32.0 mmol/L Normal CO2 27.0 LAB L501.6200 5-15 Normal GAP 5 Performed By: #### L100.0100, L500.4050 #### [facility] [address] [place], [address] ALINA + PROTEIN ELECT, Collected: 06/06/2017 Status: F Source: [facility] 9:06 AM [facility] [place] [facility] Order Comment: Reason for Laboratory Test . Is Patient Fasting? N TYPE CODE TESTS RESULT OUT OF RANGE REFERENCE UNITS LAB L3100.3500 6.0-8.5 g/dL Normal PROTEIN,TOTAL 6.9 LAB L3200.9053 509-5872 mg/dL Normal IMMUNO G 845 LAB L3200.1400 61-437 mg/dL Normal IMMUNO A 228 LAB L3200.1500 20-172 mg/dL Normal IMMUNOGL M 36 LAB L3200.1510 2.9-4.4 g/dL Normal ALBUMIN 3.6 LAB L3200.1520 0.0-0.4 g/dL Normal JRAVE-7-WZRD 0.3 LAB L3200.1530 0.4-1.0 g/dL Normal DXRCA-4-ADQK 0.9 LAB L3200.1540 0.7-1.3 g/dL Normal BETA GLOBULIN 1.3 LAB L3200.1550 0.4-1.8 g/dL Normal GAMMA GLOBULIN 0.9 LAB L3200.1560 Normal M-SPIKE Result Comment: NOT OBSERVED LAB L3200.1570 2.2-3.9 g/dL Normal GLOBULIN, TOTAL 3.3 LAB L3200.1580 0.7-1.7 A/G Normal RATIO 1.1 LAB L3200.1590 . ALINA Normal RESULT,S Comment Result Comment: No monoclonality detected. LAB L3200.1594 . Normal NOTE: Comment Result Comment: Protein electrophoresis scan will follow via computer, mail, or acid washer operator delivery. Performed By: #### L3100.3425, L3130.0010 #### [facility] (refer to report for specific site) refer to report for address and phone number KAPPA LAMBDA LIGHT Collected: 06/06/2017 Status: F Source: NIKKI [facility]AINS 9:06 AM [facility] [place] Order Comment: Reason for Laboratory Test . Is Patient Fasting? N TYPE CODE TESTS RESULT OUT OF RANGE REFERENCE UNITS LAB L3130.0200 3.3-19.4 mg/L Normal FR KAPPA LT 16.3 CHN LAB L3130.0300 5.7-26.3 mg/L Normal FR LAMBDA LT 13.6 CH LAB L3130.0400 0.26-1.65 Normal KAPPA/LAMBDA 1.20 % Result Comment: Performed at: [facility] [id number] Showroom Sales Assistant: Jose Angel Marks PhD, Phone: [phone] Performed By: #### L3100.3425, L3130.0010 #### [facility] (refer to report for specific site) refer to report for address and phone number ALLERGIES ALLERGIES DATE TYPE / CODE NAME / CODE REACTION SEVERITY SOURCE 03/31/2018 Drug tolmetin Hives Unknown [place] Allergy/416 sodium/[id number] [facility] 567007([facility] 9(RXNORM) [facility] ED [place]) Repository 03/31/2018 Drug ketorolac Shortness of Unknown [place] Allergy/416 tromethamine/F00 breath Community 236038([facility] 7087696(RXNORM) [facility] ED [place]) Repository 03/31/2018 Drug Sulfa Swelling Unknown [place] Allergy/416 (Sulfonamide Community 894740(SN Antibiotics)/F00 Hospital ED [place]) 7501234(RXNORM) Repository 03/31/2018 Drug tetracycline/F00 Other Unknown [place] Allergy/922 7723938(RXNORM) Community 566523([facility] Hospital ED CT) Repository 03/31/2018 Drug pollen Unknown Unknown [place] Allergy/416 extracts/F816507 Community 345537([facility] 102(RXNORM) [facility] ED CT) Repository ENCOUNTERS ENCOUNTERS ADMIT/DISCHARGE ACCOUNT NUMBER ADMITTING ENCOUNTER LOCATION SOURCE CLASS 04/05/2018/04/05/19 [id number] Ambulatory [address] ding:SDCRoom Repository : AC20 03/31/2018 [id number] Ambulatory [facility] ding:BFHLAB Repository 12/29/2017 [id number] Ambulatory [facility] ding:LAB.FUT Repository URE 12/13/2017/12/14/19 [id number] Ambulatory BMSBuilding: Nikki 18 [facility] Repository 12/07/2017 [id number] Ambulatory [facility] ding:CT Repository 11/07/2017 [id number] Ambulatory [facility] ding:MTRAD Repository 07/08/2017/07/09/19 [id number] Ambulatory BMSBuilding: [place] 18 BMS.[facility] Repository 06/09/2017 [id number] Ambulatory BMSBuilding: [place] BMS.CF.[facility] Repository 06/09/2017 [id number] Ambulatory [facility] ding:OMD Repository 05/02/2017 [id number] Ambulatory Building:[facility] Repository 05/02/2017 [id number] Ambulatory Building:[facility] Repository PAYERS PAYERS ENCOUNTER GUARANTOR PAYER SUBSCRIBER SOURCE 04/05/2018 VAUGHN [id number] Primary VAUGHN F FRYDOB: [facility] Insurance:CARESOURCE [id number] [place] [address]Tel: (330) Number: Repository [phone] () [id number] Date:7806-03-16Ku [address] [address]WI: 04/05/2018 Secondary NOT GIVENUNK [place] Insurance:SELF PAY Community INSURANCEPolicy Number: Hospital Effective Repository Date:2018-03-21 03/31/2018 VAUGHN F [id number] Primary VAUGHN F FRYDOB: [place] Insurance:CARESOURCE [id number] [place] [address]Tel: (330) Number: Repository [phone] () [id number] Date:5194-73-10Ki [address] [address]SS: 03/31/2018 Secondary NOT GIVENUNK [place] Insurance:SELF PAY Community INSURANCEPolicy Number: Hospital Effective Repository Date:2018-03-31 12/29/2017 VAUGHN F [id number] Primary VAUGHN F FRYDOB: [place] Insurance:CAR[employer]OURCE [id number] [place] [address]Tel: (330) Number: Repository [phone] () [id number] Date:9764-11-86Hh [address] [address]ZP: 12/29/2017 Secondary NOT GIVENUNK [place] Insurance:SELF PAY Community INSURANCEPolicy Number: Hospital Effective Repository Date:2017-12-28 12/13/2017 VAUGHN F [id number] Primary VAUGHN F FRYDOB: [place] Insurance:CARESOURCE [id number] [place] [address]Tel: (330) Number: Repository [phone] () [id number] Date:1236-97-12Qi [address] [address]VC: 12/13/2017 Secondary NOT GIVENUNK [place] Insurance:SELF PAY Community INSURANCEPolicy Number: Hospital Effective Repository Date:2017-12-08 12/07/2017 VAUGHN Meléndez [id number] Primary VAUGHN Meléndez FRYDOB: [place] Insurance:CAR[employer]OURCE [id number] [place] FOR [place] [address]Tel: (330) Number: Repository [phone] () [id number] Date:7898-70-06Ey [address] [place] [address]JH: 12/07/2017 Secondary NOT GIVENUNK [place] Insurance:SELF PAY Community INSURANCEPolicy Number: Hospital Effective Repository Date:2017-12-05 11/07/2017 VAUGHN Meléndez [id number] Primary VAUGHN Meléndez FRYDOB: [place] Insurance:CARESOURCE [id number] [place] [address]Tel: (330) Number: Repository [phone] () [id number] Date:4906-67-74Jz [address] [place] [address]DB: 11/07/2017 Secondary NOT GIVENUNK [place] Insurance:SELF PAY Community INSURANCEPolicy Number: Hospital Effective Repository Date:2017-11-07 07/08/2017 VAUGHN Meléndez [id number] Primary VAUGHN Meléndez FRYDOB: [place] Insurance:[employer] [id number] [place] [address]Tel: Number: Repository [phone] [id number] 0-6 (HP) Date:9800-03-86Uh [address] [place] [address]LQ: 07/08/2017 Secondary NOT GIVENUNK [place] Insurance:SELF PAY Community INSURANCEPolicy Number: Hospital Effective Repository Date:2017-07-08 06/09/2017 VAUGHN Meléndez [id number] Primary VAUGHN Meléndez FRYDOB: [place] Insurance:[employer]OURCE [id number] [facility] [address]Rbx: Number: Repository [phone] [id number] 0-6 (HP) Date:0231-10-37Ap [address] [address]OK: 06/09/2017 Secondary NOT GIVENUNK [place] Insurance:SELF PAY Community INSURANCEPolicy Number: Hospital Effective Repository Date:2017-06-09 06/09/2017 VAUGHN Meléndez [id number] Primary VAUGHN Meléndez FRYDOB: [facility] Insurance:CARESOURCE [id number] [facility] [address]Tff: Number: Repository [phone] [id number] 0-6 (HP) Date:2160-40-77Oo [address] [address]TV: 06/09/2017 Secondary NOT GIVENUNK [place] Insurance:SELF PAY Community INSURANCEPolicy Number: Hospital Effective Repository Date:2016-06-03 05/02/2017 VAUGHN Meléndez FRYDOB: Primary VAUGHN Meléndez FRYDOB: [facility] Insurance:CARESOURCE [id number] [place] [address], Number: [facility] [address]Kpr: [id number] [id number]: (330) Repository Date:8566-84-58Ttts [id number] (HP) (HP) Name:MANAGED CARE 05/02/2017 VAUGHN Meléndez FRYDOB: Primary VAUGHN Meléndez FRYDOB: [facility] Insurance:CARESOURCE [id number] [place] [address], Number: [facility] [address]Dos: [id number] [address]Tcn: (330) Repository Date:1828-42-24Ljnr [phone] (HP) (HP) Name:MANAGED CARE
== END ==
PROVIDERS: Family Provider Family Medicine; PCP Family Medicine; Visit Provider Family Medicine
DX: Z01.818 Encounter for other preprocedural examination (principal)
CPT/HCPCS: 36415; 80048; 85025

== ENCOUNTER 2018-04-05 06:03 | Day surgery (SDC) | payer OTHER, SELFPAY ==
[2018-04-05] VITALS (9 sets, daily range): BP systolic 94–126; BP diastolic 65–76; PULSE 58–72; RESP 14–18; TEMP 36.3–36.6; O2SAT 94–99; BMI 27.6
[2018-04-05] MEDS: Cefazolin 2 GM in 0.9% Normal Saline 100 ML IV (07:23)
[2018-04-05] MEDS: Bupivacaine Mpf 0.5% 30 ML VIAL (07:41)
--- NOTE | 2018-04-05 08:42 | SUR.OPER ---
Surgeon; Hang Bolden D.P.M. Preoperative diagnosis: #1 hallux abductovalgus deformity left foot #2 hammertoe digit second left foot Postop diagnosis: Same Anesthesia: Local monitored anesthesia care Hemostasis: Ankle tourniquet at 250 mmHg Estimated blood loss: 2 mils Materials: 3-0 Vicryl, 4-0 Monocryl, 3.0 x 20 mm partially threaded cannulated Synthes screw Injectables: 10 mL of half percent Marcaine plain mixed with 10 mL of lidocaine 1% plain Operative note Patient was brought to the operating room and placed on the table in supine position. IV sedation was administered. The above-mentioned local anesthetic was injected. The foot was prepped and draped in the usual sterile fashion. The foot was elevated and exsanguinated tourniquet was inflated. Standard 4 cm dorsal medial incision was made over the first metatarsophalangeal joint. It was deepened by sharp and blunt dissection taking care to retract and preserve all vital structures. Knee inverted L-shaped capsulotomy was made exposing a prominent medial eminence which was resected with a saw. Attention was directed laterally where a lateral capsulotomy fibular sesamoid release and abductor tendon release was performed. The toe was easily reducible at this point. A V-shaped osteotomy was made from medial to lateral. The capital fragment was transposed laterally closing down the first and second intermetatarsal angle. It was fixated with above-mentioned screw in a typical fashion. The remaining medial shelf was resected. The wound was flushed With Normal Saline. Deep Tissue Was Closed with Vicryl. Skin Was Closed with Monocryl and Reinforced with Steri-Strips. Attention Was Now Directed to the Second Toe Where 2 Semielliptical Incisions Were Made over the Dorsal Proximal Interphalangeal Joint. Same incision was carried down through the extensor apparatus exposing the proximal interphalangeal joint at the medial and lateral collateral ligaments were transected delivering the head of the proximal phalanx to the wound. Head of the proximal phalanx was resected with bone cutting forceps. Toe was easily reducible and held in a rectus position. Tendon was repaired with 3-0 Vicryl. Skin was closed with 4-0 nylon. Dry sterile dressing was applied to both wounds. Tourniquet was deflated and full vascular status restored to the foot and digits. Patient tolerated the anesthesia and procedure well. He left the operating room with vital signs stable. He will follow-up in the office in 6 days.
--- OUTSIDE RECORDS SUMMARY | 2018-06-07 01:29 | XMS RPT_ITS ---
:1955 Author Organization OHIP Support Name Relationship Address Phone D Unavailable Unavailable Unavailable DINERO, KINGSLEY Unavailable [address] + [place] [address] D Unavailable Unavailable Unavailable DINERO, KINGSLEY Unavailable [address] + [place] [address] D Unavailable Unavailable Unavailable DINERO, KINGSLEY Unavailable [address] + [place] [address] D Unavailable Unavailable Unavailable DINERO, KINGSLEY Unavailable [address] + [place] [address] D Unavailable Unavailable Unavailable DINERO, KINGSLEY Unavailable [address] + [place] [address] D Unavailable Unavailable Unavailable DINERO, KINGSLEY Unavailable [address] [place] [address] DR + [place] [address] D Unavailable Unavailable Unavailable DINERO, KINGSLEY Unavailable [address] [place] [address] DR [phone] [place] [address] D Unavailable Unavailable Unavailable DINERO, KINGSLEY Unavailable [address] [place] [address] DR [phone] [place] [address] D Unavailable Unavailable Unavailable DINERO, KINGSLEY Unavailable [address] [place] [address] DR [phone] [place] [address] DINERO, ANDREAS Unavailable Unavailable Unavailable ROSETTE VAUGHN Unavailable Unavailable Unavailable DINERO, ANDREAS Unavailable Unavailable Unavailable DINERO, VAUGHN Unavailable Unavailable Unavailable Care Team Providers Name Role Phone ARCADIO PAGE Attending Unavailable ARCADIO PGAE Referring Unavailable TRUE IBARRA Primary Care Unavailable ARCADIO PAGE Attending Unavailable JENNIE HAYES Referring Unavailable TRUE IBARRA Primary Care Unavailable Hang Bolden Attending Unavailable Hang Bolden Referring Unavailable True Ibarra Primary Care Unavailable True Ibarra Attending Unavailable Fred, True Primary Care Unavailable Reginaldo Nava Attending Unavailable Fred, True Primary Care Unavailable Fred, True Referring Unavailable Elijah, Reginaldo Attending Unavailable Fred, True Referring Unavailable Fred, True Primary Care Unavailable Elijah, Reginaldo Consulting Unavailable Jennie Hayes Attending Unavailable Fred, True Referring Unavailable Fred, True Primary Care Unavailable Fred, True Attending Unavailable Fred, True Referring Unavailable Fred, True Primary Care Unavailable Fred, True Attending Unavailable Fred, True Primary Care Unavailable Fred, True Referring Unavailable Martell Garcia Attending Unavailable Fred, True Referring Unavailable Fred, True Attending Unavailable Fred, True Primary Care Unavailable Fred, True Referring Unavailable PROBLEMS PROBLEMS DATE TYPE CONDITION / CODE ATTENDING STATUS SOURCE 03/31/2018 Unknown Z01.818 - Encounter True Ibarra Active [place] for other [facility] preprocedural Hospital examination / Repository Z01.818(ICD-10) 12/29/2017 Unknown Z12.5 - Encounter True Ibarra Active [place] for screening for Community malignant neoplasm [facility] prostate / Repository Z12.5(ICD-10) 12/29/2017 Unknown R63.4 - Abnormal True Ibarra Active [place] weight loss / Community R63.4(ICD-10) Hospital Repository 12/29/2017 Unknown 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 / Community E29.1(ICD-10) Hospital Repository 12/29/2017 Unknown Z00.00 - Encounter True Ibarra Active [place] for general adult [facility] medical examination Hospital without abnormal Repository findings / Z00.00(ICD-10) 12/13/2017 Unknown R10.9 - Unspecified FredTrue mackey Active [facility] abdominal pain / Community R10.9(ICD-10) Hospital Repository 11/07/2017 Unknown N41.0 - Acute FredTrue mackey Active [place] prostatitis / Community N41.0(ICD-10) Hospital Repository 06/08/2017 Unknown D70.9 - ElijahReginaldo Active [facility] Neutropenia, Community unspecified / Hospital D70.9(ICD-10) Repository 06/08/2017 Unknown D72.819 - Decreased PratasneemReginaldo Active [place] white blood cell Community count, unspecified Hospital / D72.819(ICD-10) Repository 06/08/2017 Unknown 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 / Community D47.2(ICD-10) Hospital Repository 05/02/2017 Admitting Shoulder Pain / ARCADIO PAGE Active [place] [facility] diagnosis 347224() [facility] Repository 05/02/2017 Admitting Pain in left ARCADIO PAGE Active [facility] diagnosis shoulder / [facility] M25.512(ICD-10) [facility] PROCEDURES PROCEDURES No Procedure Records FoundRESULTS RESULTS CBC W/DIFF, AUTOMATED Collected: 03/31/2018 Status: F Source: [place] 3:24 PM [facility] REPOSITORY TYPE CODE TESTS RESULT OUT [...] Lymph 1.76 Performed By: #### L100.0100 #### [facility] [address] [place], [address] BASIC METABOLIC Collected: 03/31/2018 Status: F Source: [place] PROFILE (BMP) 3:24 PM [facility] REPOSITORY TYPE CODE TESTS RESULT OUT OF [...] GAP 7 Performed By: #### L500.2500 #### [facility] [address] [place], [place], [address] CBC W/DIFF, AUTOMATED Collected: 12/29/2017 Status: F Source: [place] 6:22 AM [facility] REPOSITORY TYPE CODE TESTS RESULT OUT OF [...] Lymph 1.37 Performed By: #### L100.0100 #### [facility] [address] [place], [place], [address] COMPREHENSIVE METABOLIC Collected: 12/29/2017 Status: F Source: [facility] 6:22 AM [facility] REPOSITORY Order Comment: Has Patient had X-rays [...] #### L500.4050, L500.4100, L501.9520, L501.9910, L506.0400 #### [facility] [address] [place], [address] LIPID PROFILE Collected: 12/29/2017 Status: F Source: [place] 6:22 AM [facility] REPOSITORY Order Comment: Has Patient had X-rays [...] #### L500.4050, L500.4100, L501.9520, L501.9910, L506.0400 #### [facility] [address] [facility] [place], [address] THYROID STIM HORMONE Collected: 12/29/2017 Status: F Source: [place] (TSH) 6:22 AM [facility] REPOSITORY Order Comment: Has Patient had X-rays with Contrast this admission? N TYPE CODE TESTS RESULT OUT OF RANGE REFERENCE UNITS LAB L501.9520 0.358-3.74 uIU/mL Normal TSH 1.02 Performed By: #### L500.4050, L500.4100, L501.9520, L501.9910, L506.0400 #### [facility] [address] [place], [address] PSA,TOTAL - ANNUAL Collected: 12/29/2017 Status: F Source: [place] SCREEN 6:22 AM [facility] REPOSITORY Order Comment: Has Patient had X-rays with Contrast this admission? N TYPE CODE TESTS RESULT OUT OF RANGE REFERENCE UNITS LAB L501.9910 0.00-4.00 ng/mL Normal PSA,TOT 0.70 SCREEN Result Comment: This test was performed using the TPSA assay method for the iversity chemistry system. Values obtained with different assay methods cannot be used interchangably. When changing PSA assays in the course of monitoring a patient, additional sequential testing should be carried out to confirm baseline values. Performed By: #### L500.4050, L500.4100, L501.9520, L501.9910, L506.0400 #### [place] [facility] [address] [place], [address] T4 FREE DIRECT Collected: 12/29/2017 Status: F Source: [place] 6:22 AM [facility] REPOSITORY Order Comment: Has Patient had X-rays with Contrast this admission? N TYPE CODE TESTS RESULT OUT OF RANGE REFERENCE UNITS LAB L506.0400 0.76-1.46 ng/dL Normal T4 FREE 0.87 DIRECT Performed By: #### L500.4050, L500.4100, L501.9520, L501.9910, L506.0400 #### [place] [facility] [address] [place], [address] TESTOSTERONE, TOTAL / Collected: 12/29/2017 Status: F Source: [place] FREE 6:22 AM [facility] REPOSITORY Order Comment: Has Patient had X-rays with Contrast this admission? N TYPE CODE TESTS RESULT OUT OF RANGE REFERENCE UNITS LAB L3100.5320 264-916 ng/dL Low 151 TESTOSTER,TO UNRULY Result Comment: Adult male reference interval is based on a population of healthy nonobese males (BMI <30) between 19 and 39 years old. Aniceto et.al. JCEM 2017,102;5816-9104. PMID: 99154082. LAB L3100.5340 5.00-21.00 ng/dL Low TESTOSTER,FREE 4.61 LAB L3100.5360 1.50-4.20 % TESTOSTER %FREE Normal 3.05 Result Comment: Performed at: - [facility] [id number] Patient Services Rep: Jose Angel Marks PhD, Phone: [phone] Performed at: [facility] [id number] Patient Services Rep: Toribio Macario MD, Phone: [phone] Performed By: #### L3100.5310 #### [facility] (refer to report for specific site) refer to report for address and phone number ORTHOPEDIC VISIT Observed: 12/13/2017 Status: F Source: [place] REPORT 4:03 PM [facility] REPOSITORY [facility] [address] [place] [address] OFFICE VISIT Date of Service: 12/13/17 MR#: [id number] Acct: [id number] Name: VAUGHN DINERO Rep #: [id number] : 1955 Provider: BIPIN Garcia Age/Sex: 62/M Location: [facility].S[facility] Status: Signed with Addenda ADDENDUM by Blaise [...] 12/07/2017 Status: F Source: [place] 5:00 PM [facility] REPOSITORY TYPE CODE TESTS RESULT OUT OF RANGE REFERENCE UNITS LAB L9100.0210 0.70-1.30 mg/dL Normal CREATININE WB 0.9 LAB L9100.0220 >60 mL/min EGFR WB Normal > 60.0000 Performed By: #### L9100.0200 #### [facility] Point of Care [address] [place] [address] ABDOMEN/PELVIS WITH Observed: 12/07/2017 Status: F Source: [place] CONTRAST 4:44 PM [facility] REPOSITORY [facility] Imaging Services [address] [place] [address] Abdomen/Pelvis WITH Contrast MR#: [id number] Acct: [id number] Name: VAUGHN DINERO Rep #: [id number] : 1955 M 62 From: Vu Casey MD PCP: True Ibarra DO Status: REG CLI Study: Abdomen/Pelvis WITH Contrast Date of Exam: 12/07/17 Exam# [id number] Ordering Dr: True Ibarra DO STUDY: CT [...] Service support , CC: True Ibarra DO Quality Control Tester: Signed ABDOMEN SINGLE VIEW Observed: 11/07/2017 Status: F Source: [place] 1:20 PM [facility] REPOSITORY [facility] Imaging Services [address] [place] [address] Abdomen Single View MR#: [id number] Acct: [id number] Name: VAUGHN DINERO Rep #: [id number] : 1955 M 62 From: Sony Rudolph MD PCP: True Ibarra DO Status: REG CLI Study: Abdomen Single View Date of Exam: 11/07/17 Exam# [id number] Ordering Dr: True Ibarra DO STUDY: X-RAY [...] Service support , CC: True Ibarra DO Quality Control Tester: Signed L/S SPINE MIN 4 Observed: 11/07/2017 Status: F Source: [place] VIEWS 1:20 PM [facility] REPOSITORY [facility] Imaging Services [address] [place] [address] L/S Spine Min 4 Views MR#: [id number] Acct: [id number] Name: VAUGHN DINERO Rep #: [id number] : 1955 M 62 From: Sony Rudolph MD PCP: True Ibarra DO Status: REG CLI Study: L/S Spine Min 4 Views Date of Exam: 11/07/17 Exam# [id number] Ordering Dr: True Ibarra DO STUDY: X-RAY [...] Service support , CC: True Ibarra DO Quality Control Tester: Signed ORTHOPEDIC VISIT Observed: 07/08/2017 Status: F Source: [place] REPORT 10:16 AM [facility] REPOSITORY [facility] [address] [place] [address] OFFICE VISIT Date of Service: 07/08/17 MR#: [id number] Acct: [id number] Name: VAUGHN DINERO Rep #: [id number] : 1955 Provider: Jennie Hayes DO Age/Sex: 62/M Location: [facility] Status: Signed Intake Intake Visit Reasons: BILAT [...] Admin Location Lot Number Expiration Date [place] Tobacco Sweeper 4 mg IM bilateral knee [id number] 07/12/18 5821-4582-39 [place] [employer] SQUIBB Assessment AND Plan Problems 1. Chronic [...] of both knees M23.91; M23.92 Additional Codes rivet bucker.knee (92010) 07/08/17 1016 <Electronically signed by Jennie COFFMAN Date Jennie Hayes DO Cosigntawanna Signature: Date (if applicable) CC: ONCOLOGY VISIT REPORT Observed: 06/09/2017 Status: F Source: [place] 2:57 PM [facility] REPOSITORY [facility] [place] [address] OFFICE VISIT Date of Service: 06/09/17 1450 MR#: [id number] Acct: [id number] Name: VAUGHN DINERO Rep #: [id number] : 1955 From: Reginaldo Nava MD Age/Sex: [...] Resolved Code Visit Office Visits / Consults: 68977 OV L3 Est 06/09/17 1457 <Electronically signed by Reginaldo Nava MD> Date Reginaldo Nava MD Cosigner Signature: Date (if applicable) CC: CBC W/DIFF, AUTOMATED Collected: 06/06/2017 Status: F Source: [place] 9:06 AM [facility] REPOSITORY Order Comment: Reason for Laboratory Test [...] 1.39 Performed By: #### L100.0100, L500.4050 #### [facility] [address] [place], [place], [address] COMPREHENSIVE METABOLIC Collected: 06/06/2017 Status: F Source: [facility] 9:06 AM [facility] REPOSITORY Order Comment: Reason for Laboratory Test [...] 5 Performed By: #### L100.0100, L500.4050 #### [facility] [address] [place], [address] ALINA + PROTEIN ELECT, Collected: 06/06/2017 Status: F Source: [place] SERUM 9:06 AM [facility] REPOSITORY Order Comment: Reason for Laboratory Test . Is Patient Fasting? N TYPE CODE TESTS RESULT OUT OF RANGE REFERENCE UNITS LAB L3100.3500 6.0-8.5 g/dL Normal PROTEIN,TOTAL 6.9 LAB L3200.5176 201-2834 mg/dL Normal IMMUNO G 845 LAB L3200.1400 61-437 mg/dL Normal IMMUNO A 228 LAB L3200.1500 20-172 mg/dL Normal IMMUNOGL M 36 LAB L3200.1510 2.9-4.4 g/dL Normal ALBUMIN 3.6 LAB L3200.1520 0.0-0.4 g/dL Normal QFOFH-9-EKMR 0.3 LAB L3200.1530 0.4-1.0 g/dL Normal LKKWI-8-CSUR 0.9 LAB L3200.1540 0.7-1.3 g/dL Normal BETA [...] scan will follow via computer, mail, or forder operator delivery. Performed By: #### L3100.3425, L3130.0010 #### [facility] (refer to report for specific site) refer to report for address and phone number KAPPA LAMBDA LIGHT Collected: 06/06/2017 Status: F Source: [place] CHAINS 9:06 AM [facility] REPOSITORY Order Comment: Reason for Laboratory Test . Is Patient Fasting? N TYPE CODE TESTS RESULT OUT OF RANGE REFERENCE UNITS LAB L3130.0200 3.3-19.4 mg/L Normal FR KAPPA LT 16.3 CHN LAB L3130.0300 5.7-26.3 mg/L Normal FR LAMBDA LT 13.6 CH LAB L3130.0400 0.26-1.65 Normal KAPPA/LAMBDA 1.20 % Result Comment: Performed at: [facility] [id number] Patient Services Rep: Jose Angel Marks PhD, Phone: [phone] Performed By: #### L3100.3425, L3130.0010 #### [facility] (refer to report for specific site) refer to report for address and phone number ALLERGIES ALLERGIES DATE TYPE / CODE NAME / CODE REACTION SEVERITY SOURCE 03/31/2018 Drug tolmetin Hives Unknown [place] Allergy/416 sodium/[id number] [facility] 858586([facility] 9(RXNORM) [facility] ED [place]) Repository 03/31/2018 Drug ketorolac Shortness of Unknown [facility] Allergy/416 tromethamine/F00 breath Community 646666([facility] 1057767(RXNORM) [facility] ED CT) Repository 03/31/2018 Drug Sulfa Swelling Unknown [facility] Allergy/416 (Sulfonamide Community 764798([facility] Antibiotics)/F00 [facility] ED [facility]) 9119575(RXNORM) Repository 03/31/2018 Drug tetracycline/F00 Other Unknown [place] Allergy/344 9312341(RXNORM) Community 980839([facility] Hospital ED CT) Repository 03/31/2018 Drug pollen Unknown Unknown [place] Allergy/416 extracts/N449398 Community 044980([facility] 102(RXNORM) [facility] ED CT) Repository ENCOUNTERS ENCOUNTERS ADMIT/DISCHARGE ACCOUNT NUMBER ADMITTING ENCOUNTER LOCATION SOURCE CLASS 04/05/2018/04/05/19 [id number] Ambulatory [address] ding:SDCRoom Repository : AC20 03/31/2018 [id number] [facility] ding:BFHLAB Repository 12/29/2017 [id number] Ambulatory [facility] ding:LAB.FUT Repository URE 12/13/2017/12/14/19 [id number] Ambulatory BMSBuilding: [place] 18 [facility] Repository 12/07/2017 [id number] Ambulatory [facility] ding:CT Repository 11/07/2017 [id number] Ambulatory [facility] ding:MTRAD Repository 07/08/2017/07/09/19 [id number] Ambulatory BMSBuilding: [facility] 18 [facility] Repository 06/09/2017 [id number] Ambulatory [facility] ding:OMD Repository 06/09/2017 [id number] Ambulatory BMSBuilding: [place] BMS.CF.[facility] Repository 05/02/2017 [id number] Ambulatory Building:[facility] Repository 05/02/2017 [id number] Ambulatory Building:[facility] Repository PAYERS PAYERS ENCOUNTER GUARANTOR PAYER SUBSCRIBER SOURCE 04/05/2018 VAUGHN [id number] Primary VAUGHN F FRYDOB: [facility] Insurance:[employer]OURCE [id number] [place] [address]Tel: (330) Number: Repository [phone] () [id number] Date:2837-87-62Um [address] [address]KR: 04/05/2018 Secondary NOT GIVENUNK [place] Insurance:SELF PAY Community INSURANCEPolicy Number: Hospital Effective Repository Date:2018-03-21 03/31/2018 VAUGHN F [id number] Primary VAUGHN F FRYDOB: [place] Insurance:[place] [id number] [place] [address]Tel: (330) Number: Repository [phone] () [id number] Date:6644-65-62Ok [address] [address]CG: 03/31/2018 Secondary NOT GIVENUNK [place] Insurance:SELF PAY Community INSURANCEPolicy Number: Hospital Effective Repository Date:2018-03-31 12/29/2017 VAUGHN F [id number] Primary VAUGHN F FRYDOB: [place] Insurance:[employer] [id number] [place] [address]Tel: (330) Number: Repository [phone] () [id number] Date:1590-57-61Or [address] [address]IX: 12/29/2017 Secondary NOT GIVENUNK [facility] Insurance:SELF PAY Community INSURANCEPolicy Number: Hospital Effective Repository Date:2017-12-28 12/13/2017 VAUGHN F [id number] Primary VAUGHN F FRYDOB: [place] Insurance:[employer]OURCE [id number] [place] [address]Tel: (330) Number: Repository [phone] () [id number] Date:6657-55-60Fv [address] [address]VV: 12/13/2017 Secondary NOT GIVENUNK [facility] Insurance:SELF PAY Community INSURANCEPolicy Number: Hospital Effective Repository Date:2017-12-08 12/07/2017 VAUGHN Meléndez [id number] Primary VAUGHN Meléndez FRYDOB: [place] Insurance:[employer]OURCE [id number] [place] JUST FOR [place] [address]Tel: (330) Number: Repository [phone] () [id number] Date:4515-35-94Ei [address] [place] [address]RL: 12/07/2017 Secondary NOT GIVENUNK [place] Insurance:SELF PAY Community INSURANCEPolicy Number: Hospital Effective Repository Date:2017-12-05 11/07/2017 VAUGHN Meléndez [id number] Primary VAUGHN Meléndez FRYDOB: [place] [place] Insurance:[employer]OURCE [id number] [place] [address]Tel: (330) Number: Repository [phone] () [id number] Date:7904-43-34Zb [address] [place] [address]FA: 11/07/2017 Secondary NOT GIVENUNK [facility] Insurance:SELF PAY Community INSURANCEPolicy Number: Hospital Effective Repository Date:2017-11-07 07/08/2017 VAUGHN Meléndez [id number] Primary VAUGHN Meléndez FRYDOB: [place] Insurance:[employer] [id number] [place] [address]Tel: Number: Repository [phone] [id number] 0-6 (HP) Date:3387-27-34Qw [address] [place] [address]LP: 07/08/2017 Secondary NOT GIVENUNK [place] Insurance:SELF PAY Community INSURANCEPolicy Number: Hospital Effective Repository Date:2017-07-08 06/09/2017 VAUGHN Meléndez [id number] Primary VAUGHN Meléndez FRYDOB: [place] Insurance:[employer] [id number] [facility] [address]Vvf: Number: Repository [phone] [id number] 0-6 (HP) Date:1216-70-58Zi [address] [address]LB: 06/09/2017 Secondary NOT GIVENUNK [facility] Insurance:SELF PAY Community INSURANCEPolicy Number: Hospital Effective Repository Date:2016-06-03 06/09/2017 VAUGHN Meléndez [id number] Primary VAUGHN Meléndez FRYDOB: [facility] Insurance:CAR[employer]OURCE [id number] [facility] [address]Ldm: Number: Repository [phone] [id number] 0-6 (HP) Date:8658-02-71Pf [address] [address]LR: 06/09/2017 Secondary NOT GIVENUNK [place] Insurance:SELF PAY Community INSURANCEPolicy Number: Hospital Effective Repository Date:2017-06-09 05/02/2017 VAUGHN Meléndez FRYDOB: Primary VAUGHN Meléndez FRYDOB: [facility] Insurance:[employer]OURCE [id number] [place] [address], Number: [facility] [id number]: [id number]: (330) Repository Date:2363-13-88Tggj [phone] (HP) (HP) Name:MANAGED CARE 05/02/2017 VAUGHN Meléndez FRYDOB: Primary VAUGHN Meléndez FRYDOB: [facility] Insurance:[employer] [id number] [place] [address], Number: [facility] [id number]: [id number] [phone]: (330) Repository Date:1865-52-72Wixr [phone] (HP) (HP) Name:MANAGED CARE
== END 2018-04-05 09:34 | disposition home or self-care (01) ==
LOC: SDC 06:04 → AC 06:05
PROVIDERS: Family Provider Family Medicine; PCP Family Medicine; Referring Provider Podiatrist Foot & Ankle Surgery; Visit Provider Podiatrist Foot & Ankle Surgery
PROC: (CPT 28292; principal; 2018-04-05 07:15)
PROC: (CPT 28285; 2018-04-05 07:15)
DX: M20.42 Other hammer toe(s) (acquired), left foot (principal); M20.12 Hallux valgus (acquired), left foot; B36.0 Pityriasis versicolor; N40.1 Benign prostatic hyperplasia with lower urinary tract symptoms; N13.8 Other obstructive and reflux uropathy; M19.012 Primary osteoarthritis, left shoulder; J45.909 Unspecified asthma, uncomplicated; Z79.51 Long term (current) use of inhaled steroids; Z79.891 Long term (current) use of opiate analgesic; Z79.899 Other long term (current) drug therapy
CPT/HCPCS: 28285; 28296; C1713; J7120

== ENCOUNTER → 2018-04-20 08:56 | Outpatient (CLI) | payer OTHER, SELFPAY ==
[2018-04-20 08:46] VITALS: BMI 27.6
--- NOTE | 2018-04-20 08:58 | RAD_ITS ---
STUDY: X-RAY - RIGHT KNEE REASON FOR EXAM: Male, 63 years old. Pain of the right knee TECHNIQUE: 4 view(s) of the knee. COMPARISON: None. FINDINGS: Normal visualized distal femur. Normal visualized proximal tibia and fibula. Normal proximal tibiofibular articulation. Normal medial femorotibial compartment. Normal lateral femorotibial compartment. Normal patellofemoral articulation. There is no demonstrated joint effusion. The soft tissue structures are unremarkable. RAD/Knee 4 or More Views IMPRESSION: Normal x-ray examination of the knee. Electronically Signed: Harris Myles MD at 8:52 EST , Service support ,
--- NOTE | 2018-04-20 08:58 | RAD_ITS ---
STUDY: X-RAY - LEFT KNEE REASON FOR EXAM: Pain. TECHNIQUE: 4 view(s) of the knee. COMPARISON: Radiographs 08/16/2016. FINDINGS: Normal visualized distal femur. Normal visualized proximal tibia and fibula. Normal proximal tibiofibular articulation. Normal medial femorotibial compartment. Normal lateral femorotibial compartment. Normal patellofemoral articulation. The soft tissue structures are unremarkable. RAD/Knee 4 or More Views IMPRESSION: Normal x-ray examination of the left knee. Electronically Signed: Bruce Cordoba MD at 12:25 EST Tel , Service support ,
== END ==
PROVIDERS: Family Provider Family Medicine; PCP Family Medicine; Referring Provider Physician Assistant; Visit Provider Physician Assistant
DX: M25.561 Pain in right knee (principal); M25.562 Pain in left knee
CPT/HCPCS: 73564

== ENCOUNTER 2018-10-18 06:33 | Day surgery (SDC) | payer MEDICARE, SELFPAY ==
[2018-04-20 08:46] VITALS: BMI 27.6
[2018-10-18 06:50] VITALS: BP 116/69; PULSE 63; RESP 16; TEMP 37; O2SAT 100; BMI 26.2
--- NOTE | 2018-10-18 07:29 | HP.PCM_ITS ---
History of Present Illness Date of Admission: 10/18/18 The patient is a 63 year old M who presents for screening colonoscopy. It is been more than 10 years since his last colonoscopy. He has not had any bowel or bladder complaints. Past Medical/Surgical History - Planned Operation Planned Operative Procedure/s: colonoscopy Date of Operative Procedure: 10/18/18 Permit Signed: No S.O.S: No Is This Patient Having a Total Joint: No - Previous Hospitalizations/Surgeries HX Hospitalizations: No HX of Surgeries: 5 SHOULDER SURGERY LEFT. 1 RIGHT SHOULDER. ULNAR NERVE LEFT. TENNIS ELBOW RIGHT. PRONATOR SURGERY RIGHT. NECK SURGERY WITH PLATE. CARPAL TUNNEL TIMES 2 LEFT HAND. CARPAL TUNNEL RIGHT TIMES 1. THROAT SURGERY /NASAL RECONSTRUCTION D/T SLEEP APNEA. GWEN FEET HEEL SPURS. UMBILICAL HERNIA REPAIR. NECK FUSION 2014. TMJ SURGERY 2016. left total shoulder replacement 2017. 2 019 bunionectomy,repair hammertoe 2nd digit,left Any Problems With Anesthesia: Yes - nausea after shoulder surgery 2017 You/Your Family Experience Fever (Hyperthermia) With Anes: No Cholinesterase deficiency: No - Cardiovascular Hx Chest Pain within Last 2 months: No Hx of Irregular Heartbeat and/or Afib: No Hx Heart Attack: No Hx Congestive Heart Failure: No Hx Rheumatic Fever: No Hx Hypertension: Yes - NO MEDS FOR 6 yrs AFTER WEIGHT LOSS Hx Internal Defibrillator: No Hx Pacemaker: No Hx Cardiac Catheterization: No Hx Cardiac Surgery/Stents/Etc.: No Hx Stress Test: Yes - 2006 AND ECHO HX Edema: No Hx Pain in Legs when Walking/Leg Cramps: No - Respiratory Chronic Cough: No HX of Shortness of Breath: No - denies Hoarseness: No Hx Chronic Obstructive Pulmonary Disease (COPD): No Hx Asthma: Yes - ASTHMATIC CONDITION CAUSES OCC WHEEZING Hx Emphysema: No Hx Sleep Apnea: Yes - recent testing CPAP: No BIPAP: No Hx Oxygen Use at Home: No Hx Respiratory Tract Infection/Cold (presently): No Result (for STOP score): Positive Hx Smoking: No Smoking Status: Never smoker - Gastrointestinal Hx Gastroesophageal Reflux: Yes - occas Controlled With Meds: Yes - omeprazole Hx Gastrointestinal Disorders: No Hx Gastrointestinal Bleed: No Hx Ulcer: Yes - HX Hx Hiatal Hernia: Yes - small Difficulty Chewing/Swallowing: No Recent Onset of Swallowing Problems: No Special diet followed at home: No Hx Unplanned Weight Loss of 20#: No HX Unplanned Weight Gain of 20#: No - Neurological Hx Seizures: No HX Syncope/Blackout Spells/Unconsciousness: No Hx CVA/Stroke: No Hx Transient Ischemic Attacks (TIA): No Hx Multiple Sclerosis: No Hx Parkinson's Disease: No Hx Head/Neck Injury: Yes - NECK FUSION 1999,2014/mild limited rom Hx Headaches: No Hx Back Injury/Pain: Yes - lower back pain occ/ dr rodriguez Recent Onset of Speech Difficulty: No Restless Legs: No Does patient have nerve stimulator: No Patient instructed to have device shut off: No Rep notified?: No - Blood Disorder Hx Leukemia: No Bleeding Tendencies: No Hx Deep Vein Thrombosis: No Hx High Cholesterol: Yes - borderline Blood Transmitted Disease: No Hx Hepatitis: No Hx Cirrhosis: No Hx Anemia: No Hx Blood Disorders: No - Genitourinary Hx Renal Disease: No - Musculoskeletal Hx Arthritis: Yes - shoulders,neck,hands Hx Rheumatoid Arthritis: No Hx Gout: No Recent Onset of an Orthopedic Problem: No - . - Endocrine Hx Diabetes: No Thyroid Disease: No Hx Steroid Therapy: No - . - Psycho/Social Hx Substance Use: No Hx Alcohol Use: No Hx Anxiety: No Hx Depression: No Mental Illness: No Hx Dementia: No - Miscellaneous Hx Cancer: No Recent Exposure to Contagious Disease: No Active MRSA: No Hx of C-Diff: No Any Loose Teeth: No Allergies ketorolac tromethamine [From Toradol] Allergy (Verified 10/17/18 08:34) Shortness of breath pollen extracts Allergy (Verified 10/17/18 08:34) Unknown Sulfa (Sulfonamide Antibiotics) Allergy (Verified 10/17/18 08:34) Swelling tolmetin sodium [From Tolectin] Allergy (Verified 10/17/18 08:34) Hives tetracycline [Tetracycline] Adverse Reaction (Verified 10/17/18 08:34) Other - Discharge Is Pt Admitted From a Longterm, or a [facility]: No Who Could Help: After D/C, Where Do you Plan to Go: Return Home - From the PAT History Number of Risk Factors: 2 - Physical Exam General: Alert, Oriented x3 Lungs: Clear to auscultation Cardiovascular: Regular rate, Regular Rhythm, No murmurs Abdomen: Bowel Sounds Present, Soft, Non Tender, Non-Distended Vital Signs Temp Pulse Resp BP Pulse Ox 98.6 F 63 16 116/69 100 10/18/18 06:50 10/18/18 06:50 10/18/18 06:50 10/18/18 06:50 10/18/18 06:50 Oxygen Delivery Method Room Air Weight: 186 lb 8.177 oz Body Mass Index (BMI) 26.2 Assessment/Plan All Active Problems (Last Reviewed 06/08/18 @ 13:46 by Ivonne Luz) Neutropenia (Resolved) Osteoarthritis, multiple sites (Acute) Leukopenia (Resolved) Gammopathy (Resolved) Assessment and screening colonoscopy. Plan will be to perform a colonoscopy. Surgery Risks - Colonoscopy Risks Include but are not Limited To: Risks include but are not limited to: Bleeding, perforation requiring further surgery, inability to complete colonoscopy requiring barium enema.
--- NOTE | 2018-10-18 07:58 | OP.ENDO_ITS ---
10/18/2018 Darrian Ibarra [address] [place] [address] Re : Colonoscopy procedure for Abhishek Mccauley Dear Dr. Ibarra This procedure was performed on Thursday, October 18, 2018. My impressions and recommendations are as follows: Impressions : - Diverticulosis in the sigmoid colon. No specimens collected. - The examination was otherwise normal on direct and retroflexion views. Recommendations : - Discharge patient to home. - Resume previous diet. - Continue present medications. - Repeat colonoscopy in 10 years for screening purposes. - Return to primary care physician at appointment to be scheduled. My findings are described in the full procedure note, which is enclosed. If I can be of further assistance, please feel free to contact me at Doctor phone number(s): , Fax: [phone], Work: . Sincerely, MD Bryan Sampson MD 10/18/2018 7:58:11 AM This report has been signed electronically.
[2018-10-18 08:00] VITALS: BP 116/69; BP 116/74; PULSE 64; RESP 16; TEMP 36.7; O2SAT 98
[2018-10-18 08:06] VITALS: BP 116/69; BP 126/92; PULSE 63; RESP 16; O2SAT 95
[2018-10-18 08:09] VITALS: BP 116/69; BP 128/82; PULSE 64; RESP 16; O2SAT 97
[2018-10-18 08:17] VITALS: BP 116/69; BP 139/87; PULSE 63; RESP 16; O2SAT 98
[2018-10-18 08:45] VITALS: BP 116/69
== END 2018-10-18 08:46 | disposition home or self-care (01) ==
LOC: EN 06:36 → AC 06:37
PROVIDERS: Family Provider Family Medicine; PCP Family Medicine; Referring Provider Family Medicine; Visit Provider Surgery
PROC: 0DJD8ZZ Inspection of Lower Intestinal Tract, Via Natural or Artificial Opening Endoscopic (ICD-10-PCS; CPT 45378; principal; 2018-10-18 07:25)
DX: Z12.11 Encounter for screening for malignant neoplasm of colon (principal); K57.30 Diverticulosis of large intestine without perforation or abscess without bleeding; I10 Essential (primary) hypertension; J45.909 Unspecified asthma, uncomplicated; G47.30 Sleep apnea, unspecified; K21.9 Gastro-esophageal reflux disease without esophagitis; E78.00 Pure hypercholesterolemia, unspecified; M19.90 Unspecified osteoarthritis, unspecified site
CPT/HCPCS: 45378; J7120

== ENCOUNTER → 2019-01-04 | Outpatient (CLI) | payer MEDICARE, SELFPAY ==
[2019-01-04 15:53] LABS: CRP 5.09 mg/L (0.0-3.0); Rheumatoid Factor < 10.0 IU/mL (<15)
[2019-01-04 16:12] LABS: Erythrocyte Sedimentation Rate 22 mm/hr (0-20)
[2019-01-08 10:19] LABS: CCP IgG Antibodies 11 units (0-19)
== END | disposition home or self-care (01) ==
LOC: BFHLAB 13:12
PROVIDERS: Family Provider Family Medicine; PCP Family Medicine; Visit Provider Family Medicine
DX: M19.90 Unspecified osteoarthritis, unspecified site (principal)
CPT/HCPCS: 36415; 85652; 86140; 86200; 86431

== ENCOUNTER → 2019-01-06 | Outpatient (CLI) | payer MEDICARE, SELFPAY ==
[2019-01-06 08:16] LABS: ALB/GLOB Ratio 1.1 RATIO (0.9-2.4); AST(SGOT) 27 U/L (15-37); Alanine Aminotransfer ALT/SGPT 30 U/L (16-61); Albumin, Serum 3.7 g/dL (3.2-5.0); Alkaline Phosphatase 84 U/L (45-117); Anion Gap 4 (5-15); BUN 13 mg/dL (7-18); BUN/Creat Ratio 12.1 RATIO (10-20); Calcium,Total 8.7 mg/dL (8.5-10.1); Chloride 106 mmol/L (98-107); Cholesterol 205 mg/dL (200); Creatinine, Serum 1.07 mg/dL (0.70-1.30); EST Glomerular Filtration Rate 74 mL/min (>60); Est Glom Filt Rate - Afr Amer 89 mL/min (>60); Globulin 3.4 g/dL (2.2-4.2); Glucose 101 mg/dL (74-106); High Density Lipoprotein 59 mg/dL; Potassium 4.1 mmol/L (3.5-5.1); Protein, Total 7.1 g/dL (6.4-8.2); Sodium Level 139 mmol/L (136-145); Triglycerides 89 mg/dL; Very Low Density Lipoprotein 18 mg/dL (5-40)
[2019-01-09 09:07] LABS: Testosterone, Free 28.98 ng/dL (5.00-21.00)
[2019-01-09 10:50] LABS: Testosterone, Total 1035 ng/dL (264-916)
== END | disposition home or self-care (01) ==
LOC: LAB 06:59
PROVIDERS: Family Provider Family Medicine; PCP Family Medicine; Referring Provider Internal Medicine Endocrinology, Diabetes & Metabolism; Visit Provider Internal Medicine Endocrinology, Diabetes & Metabolism
DX: E78.2 Mixed hyperlipidemia (principal); E29.1 Testicular hypofunction
CPT/HCPCS: 36415; 80053; 80061; 84402; 84403

== ENCOUNTER → 2019-05-21 | Outpatient (CLI) | payer MEDICARE, OTHER, SELFPAY ==
--- NOTE | 2019-05-21 13:43 | RAD_ITS ---
STUDY: X-RAY - RIGHT KNEE REASON FOR EXAM: Pain. TECHNIQUE: 4 view(s) of the knee. COMPARISON: Radiographs 04/20/2018. FINDINGS: Normal visualized distal femur. Normal visualized proximal tibia and fibula. Normal proximal tibiofibular articulation. Normal medial femorotibial compartment. Normal lateral femorotibial compartment. Normal patellofemoral articulation. The soft tissue structures are unremarkable. RAD/Knee 4 or More Views IMPRESSION: Normal x-ray examination of the right knee. Electronically Signed: Bruce Cordoba MD at 15:00 EDT Tel , Service support ,
== END | disposition home or self-care (01) ==
PROVIDERS: PCP Family Medicine; Referring Provider Physician Assistant; Visit Provider Physician Assistant
DX: M25.561 Pain in right knee (principal)
CPT/HCPCS: 73564

== ENCOUNTER → 2019-06-01 | Outpatient (CLI) | payer MEDICARE, OTHER, SELFPAY ==
[2019-05-21 15:31] VITALS: BMI 26.2
--- NOTE | 2019-06-01 12:39 | MRI_ITS ---
STUDY: MRI RIGHT KNEE REASON FOR EXAM: Male, 64 years old. Pain. TECHNIQUE: Standardized fat and water weighted pulse sequences were obtained in all 3 orthogonal planes. COMPARISON: X-ray May 21, 2019. FINDINGS: There is medial meniscus tear of the posterior horn and body, series 4 images 29/46 through 3946. There is diffuse, greater than 50% thickness articular cartilage loss of the medial femorotibial compartment. Normal medial femoral condyle and tibial plateau. There is a partial sprain of the MCL with interstitial and periligamentous edema. Normal distal semimembranosus, gracilis and semitendinosus tendons. Lateral meniscus tear of the posterior horn, series 4 image 13/46. There is focal, less than 50% thickness articular cartilage loss of the lateral femorotibial compartment. There is reactive marrow edema of the lateral tibial plateau. Normal proximal tibiofibular articulation. Normal lateral collateral (fibular) ligament. Normal popliteus tendon. Normal biceps femoris tendon. Normal anterior cruciate ligament (ACL). Normal posterior cruciate ligament (PCL). There is arthrosis of the patellofemoral articulation. There is edema and cystic change of the patella and the opposing surface of the lateral femoral condyle. There is diffuse, greater than 50% thickness articular cartilage loss of the patellofemoral compartment. Normal medial and lateral patellar retinaculum. Normal quadriceps tendon. Normal patellar tendon. Normal Hoffa''s fat pad. There is a moderate volume joint effusion. The soft tissues are unremarkable. The otherwise visualized osseous structures are unremarkable. MRI/Lower Ext Joint Only (Routine) IMPRESSION: Medial meniscus tear. Medial collateral ligament sprain. Lateral meniscus tear. Degenerative change. Joint effusion. Electronically Signed: Eliezer Nobles MD at 14:07 EDT , Service support ,
== END | disposition home or self-care (01) ==
PROVIDERS: PCP Family Medicine; Referring Provider Physician Assistant; Visit Provider Physician Assistant
DX: M23.91 Unspecified internal derangement of right knee (principal); M25.561 Pain in right knee
CPT/HCPCS: 73721

== ENCOUNTER → 2019-06-06 12:05 | Outpatient (CLI) | payer MEDICARE, OTHER, SELFPAY ==
[2019-05-21 15:31] VITALS: BMI 26.2
--- NOTE | 2019-06-06 12:57 | NEURO ---
NCS and/or EMG Patient Report Ordering Doctor: Sunny Leyva DATE OF SERVICE: 06/06/19 Abhishek Mccauley is a 64-year-old male presents for electrodiagnostic testing of the left upper limb. He reports intermittent pain and numbness in the left hand. He has a history of previous carpal tunnel release Electrodiagnostic findings: Left median motor nerve demonstrates normal distal latency, amplitude and conduction velocity. Normal left ulnar motor response, including conduction across the elbow. Normal median ulnar F wave. Sensory responses are within normal limits. On needle EMG, all muscles tested in the left upper limb showed no evidence of denervation with normal motor unit action potentials. Electrodiagnostic impression there is a normal electrodiagnostic study of the left upper limb. There is no electrodiagnostic evidence for peripheral neuropathy, including carpal tunnel or cubital tunnel syndrome. There is no electro diagnostic evidence for cervical radiculopathy. If there are any further questions, please do not hesitate to contact me.
== END ==
PROVIDERS: Family Provider Family Medicine; PCP Family Medicine; Referring Provider Physician Assistant; Visit Provider Physician Assistant
DX: R20.2 Paresthesia of skin (principal)
CPT/HCPCS: 95886; 95909

== ENCOUNTER → 2019-06-21 06:05 | Outpatient (CLI) | payer MEDICARE, OTHER, SELFPAY ==
[2019-06-13 08:57] VITALS: BMI 26.2
[2019-06-21 08:08] LABS: ALB/GLOB Ratio 1.2 RATIO (0.9-2.4); AST(SGOT) 24 U/L (15-37); Alanine Aminotransfer ALT/SGPT 26 U/L (16-61); Albumin, Serum 3.7 g/dL (3.2-5.0); Alkaline Phosphatase 67 U/L (45-117); Anion Gap 6 (5-15); BUN 13 mg/dL (7-18); BUN/Creat Ratio 12.1 RATIO (10-20); Calcium,Total 9.1 mg/dL (8.5-10.1); Chloride 105 mmol/L (98-107); Creatinine, Serum 1.07 mg/dL (0.70-1.30); EST Glomerular Filtration Rate 74 mL/min (>60); Est Glom Filt Rate - Afr Amer 89 mL/min (>60); Globulin 3.1 g/dL (2.2-4.2); Glucose 97 mg/dL (74-106); Potassium 4.3 mmol/L (3.5-5.1); Protein, Total 6.8 g/dL (6.4-8.2); Sodium Level 139 mmol/L (136-145)
[2019-06-24 12:07] LABS: Testosterone, Free 8.57 ng/dL (5.00-21.00)
[2019-06-24 15:55] LABS: Testosterone, % Free 1.79 % (1.50-4.20); Testosterone, Total 479 ng/dL (264-916)
== END ==
PROVIDERS: PCP Family Medicine; Referring Provider Internal Medicine Endocrinology, Diabetes & Metabolism; Visit Provider Internal Medicine Endocrinology, Diabetes & Metabolism
DX: E29.1 Testicular hypofunction (principal)
CPT/HCPCS: 36415; 80053; 84402; 84403

== ENCOUNTER → 2019-07-24 | Outpatient (CLI) | payer MEDICARE, OTHER, SELFPAY ==
[2019-07-13 08:52] VITALS: BMI 26.2
--- NOTE | 2019-07-24 07:49 | CT_ITS ---
STUDY: CT SCAN LOWER EXTREMITY RIGHT REASON FOR EXAM: Male, 64 years old. PRE-OP DERRICK, RT KNEE PAIN RADIATION DOSAGE (If Supplied By Facility): CTDIvol = ( 30.70 ) mGy, DLP = ( 2088.35 ) mGycm. Individualized dose optimization techniques were used for this CT.? TECHNIQUE: Multiple axial tomographic images of the hip joint, knee joint and ankle joint were obtained. Coronal and sagittal reconstruction was obtained as well. COMPARISON: None. FINDINGS: The right hip joint is unremarkable. No significant joint space narrowing is seen. There is evidence of a 1.1 cm subchondral geode along the superior lateral aspect of the acetabulum. Moderate degree of joint space narrowing involving the medial compartment of the knee joint. Multiple small cystic changes are seen in the subcortical surface of the distal lateral femoral condyle. Minimal degree of osteoarthritis involving the patellofemoral joint. Minimal joint effusion. The ankle joint is unremarkable. CT/Extremity Lower without Contra IMPRESSION: Moderate degree of joint space narrowing of the medial compartment of the knee joint with multiple cystic changes seen in the subcortical surface of the distal lateral femoral condyle. Mild degree of patellofemoral joint degenerative changes. Minimal joint effusion. Electronically Signed: Ronny Copeland, at 8:31 EDT , Service support ,
[2019-07-24 17:22] LABS: ALB/GLOB Ratio 1.2 RATIO (0.9-2.4); AST(SGOT) 23 U/L (15-37); Alanine Aminotransfer ALT/SGPT 24 U/L (16-61); Albumin, Serum 3.7 g/dL (3.2-5.0); Alkaline Phosphatase 67 U/L (45-117); Anion Gap 8 (5-15); BUN 14 mg/dL (7-18); BUN/Creat Ratio 11.8 RATIO (10-20); Calcium,Total 8.7 mg/dL (8.5-10.1); Chloride 105 mmol/L (98-107); Creatinine, Serum 1.19 mg/dL (0.70-1.30); EST Glomerular Filtration Rate 65 mL/min (>60); Est Glom Filt Rate - Afr Amer 79 mL/min (>60); Globulin 3.1 g/dL (2.2-4.2); Glucose 119 mg/dL (74-106); Potassium 3.7 mmol/L (3.5-5.1); Protein, Total 6.8 g/dL (6.4-8.2); Sodium Level 141 mmol/L (136-145)
[2019-07-24 17:28] LABS: Absolute Neutrophil Count 2.1 X10^3/uL (2.0-7.7); Basophil# 0.02 X10^3/uL; Basophil% 0.5 % (0-1); Eosinophil# 0.08 X10^3/uL; Eosinophils% 1.8 % (0-5); Hematocrit 38.9 % (40-54); Hemoglobin 13.4 g/dL (13.0-16.5); Mean Corp Hgb Conc 34.4 g/dL (32-36); Mean Corpuscular Hgb 29.7 pg (27.0-32.0); Mean Corpuscular Volume 86.3 fL (80-94); Mean Platelet Vol. 10.4 fl (6.2-12.0); Monocyte# 0.31 X10^3/uL; NRBC Flagged by Analyzer 0 % (0-5); Neutrophil # 2.11 X10^3/uL (2.7-7.7); Neutrophil % 47.7 % (47-70); Platelet Count 191 K/mm3 (150-450); RBC Distribution Width CV 13.2 % (11.6-14.6); RBC Distribution Width SD 41.3 fl (35.1-43.9); Red Blood Count 4.51 M/mm3 (4.6-6.2); White Blood Count 4.4 K/mm3 (4.4-11.0)
== END | disposition home or self-care (01) ==
PROVIDERS: PCP Family Medicine; Referring Provider Orthopaedic Surgery; Visit Provider Orthopaedic Surgery
DX: Z01.818 Encounter for other preprocedural examination (principal); M17.11 Unilateral primary osteoarthritis, right knee
CPT/HCPCS: 36415; 73700; 80053; 85025

== ENCOUNTER 2019-07-31 08:59 | Day surgery (SDC) | payer MEDICARE, OTHER, SELFPAY ==
[2019-07-13 08:52] VITALS: BMI 26.2
[2019-07-31] VITALS (15 sets, daily range): BP systolic 113–149; BP diastolic 55–84; PULSE 57–73; RESP 14–18; TEMP 36.5–36.9; O2SAT 98–100; BMI 25.7
[2019-07-31 09:39] LABS: Partial Thromboplast Time 26.7 Seconds (24.1-36.2); Prothrombin Time (Protime)PT. 12.3 SECONDS (11.7-14.9)
[2019-07-31 09:41] LABS: Magnesium 2.1 mg/dL (1.6-2.6)
[2019-07-31] MEDS: Gabapentin 600 MG Tablet PO (10:12)
[2019-07-31] MEDS: Acetaminophen 500 MG Tablet 1000 MG PO (10:12)
[2019-07-31] MEDS: Scopolamine 1mg/72hr Patch 1 PATCH TRANSDERM. (10:12)
--- NOTE | 2019-07-31 10:26 | HP.PCM_ITS ---
History and Physical Date of Admission: 07/31/19 Intake Intake Visit Reasons: right knee Chief Complaint: right knee Accompanied by: self Is patient in pain?: Yes Pain scale (1-10): 8 Allergies ketorolac tromethamine [From Toradol] Allergy (Verified 10/17/18 08:34) Shortness of breath pollen extracts Allergy (Verified 10/17/18 08:34) Unknown Sulfa (Sulfonamide Antibiotics) Allergy (Verified 10/17/18 08:34) Swelling tolmetin sodium [From Tolectin] Allergy (Verified 10/17/18 08:34) Hives tetracycline [Tetracycline] Adverse Reaction (Verified 10/17/18 08:34) Other Medications Buspirone HCl 7.5 mg PO DAILY 01/01/14 [History Confirmed 07/13/19] Fexofenadine/Pseudoephedrine [Katherin-D 24 Hour Tablet] 1 ea PO DAILY 01/01/14 [History Confirmed 07/13/19] Multivitamins,Therapeutic [Multivitamin] 1 tab PO DAILY 01/01/14 [History Confirmed 07/13/19] Testosterone [Testim] 4 gm TD DAILY 01/01/14 [History Confirmed 07/13/19] Oxycodone HCl/Acetaminophen [Percocet 7.5-325 mg Tablet] 1 ea PO BID PRN 03/31/18 [History Confirmed 07/13/19] Prasterone (Dhea) [Dhea 25] 25 mg PO DAILY 03/31/18 [History Confirmed 07/13/19] Omeprazole 40 mg PO PRN PRN 10/17/18 [History Confirmed 07/13/19] [facility] Medical History Back problem (Acute) Bunion of great toe of right foot (Acute) Hammer toe of right foot (Acute) Arthritis (Chronic) GERD (gastroesophageal reflux disease) (Chronic) Hypertension (Chronic) 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 Reginaldo Blank DO) Smoking Status: Never smoker HPI right knee: Details: Parts of this documentation were recorded by a scribe, this documentation accurately reflects the service provided and the decisions made by me, Reginaldo Blank DO 07/13/19 0753. VAUGHN DINERO is a 64 year old M here today for Iovera tx of the right knee. Patient is here for tx prior to his right TKA which is scheduled for 07/24/2019. Patient continues to have severe and progressing pain that is limiting his activities of daily living. He is unable to walk long or short distances distances and he used to like to run but he is unable to do this now. He has difficulty with stairs and has difficulty sleeping at night D/T his pain. In addition he has been using more and more narcotic pain medication is now up to 7.5 mg of Percocet throughout the day denies numbness, tingling or other associated symptoms. Denies any radiating leg pain. Does have a hx of low back pain but denies any previous lumbar surgeries. He does see a pain management Doctor which is Dr. GARDINER ENT Reports neck pain Musc Reports joint pain, Denies decreased muscle mass, Reports back pain, Reports joint swelling, Reports limited joint movement, Reports muscle weakness, Reports neck pain, Denies numbness, Denies radiating pain into limb, Reports stiffness, Denies tingling Skin/Breast Denies redness, Denies lesions, Denies rash, Denies skin pain, Denies skin swelling Neuro No numbness, No tingling Ortho Exam Right Knee Skin/Wound: No erythema, No ecchymosis, No swelling Homans Sign: No Knee ROM: Yes ROM-Extension -20 to 0, No ROM-Flexion 0-140 (120) Examination: Yes Med jt line tenderness, Yes Lat jt line tenderness Stability: NML: Anterior Drawer, NML: Posterior Drawer, NML: Valgus 0, NML: Valgus 30, NML: Varus 0, NML: Varus 30 Apprehension with Lateral Translation: No Patellar Tilt Normal: No Patella Grind: Yes KNEE: collateral ligament intact no gross motor or sensory deficits no sig edema varicsoties skin lesions about the knee. Office Procedures Iovera Procedure Details:: Preoperative diagnosis : right knee osteoarthritis Postoperative diagnosis: Same Procedure: Cryotherapy with Iovera device to anterior femoral cutaneous nerve and 2 branches of the infrapatellar saphenous nerve III nerves in total Description of procedure: Patient was brought back to the procedure room the operative extremity was identified by both patient and physician. The PIP flexion crease was measured to the midpoint of the patella and this distance was divided in 3 resulting in 10 cm location proximal to the midpoint of the patella. This line was extended medial and lateral to the extent of the edges of the patella. This was our treatment line for the anterior femoral cutaneous nerve. A second treatment line was made 5 cm medial to the inferior pole of the patella and 5 cm distally. The leg was prepped with alcohol and Betadine. Lidocaine with epi was used along the treatment lines. Using the Iovera device treatment lines were treated with 1 minute cycles. Reproduction of paresthesias was monitored in the area of nerve distribution. Once all 3 nerves were treated across the 2 treatment lines patient was cleaned and a light dressing with 4 x 4 and Jeff wrap was applied. Patient tolerated the procedure without complication. Supplemental Info 06/01/2019 MRI right knee: Posterior horn medial meniscus tear diffuse greater than 50% articular cartilage loss medial compartment, MCL sprain, lateral men iscus tear posterior horn with focal less than 50% articular cartilage loss lateral compartment reactive marrow edema lateral tibial plateau edema and cystic changes of patella with diffuse greater than 50% articular cartilage loss moderate joint effusion Assessment & Plan Problems 1. Unilateral primary osteoarthritis, right knee M17.11 2. Chronic pain of right knee M25.561; G89.29 Plan Patient educated on the risks and benifits of the Iovera tx and wishes to proceed with procedure today. Iovera completed without any concerns. Reviewed the pre-operative plans with the patient. Risks and benefits of the procedure were fully explained, including but not limited to infection, neurovascular injury, continued pain, arthritis, stiffness, need for further surgery, re- injury, DVT, PE, general risks of anesthesia, and loss of limb or life. The patient understands all the risks and does wish to proceed with written consent. Patient educated on the risks of going into the hospital for the TKA with the COVID-19 pandemic that is going on. Patient aware of the risk and wishes to proceed with surgery. Surgery scheduled for 07/24/2019. Instructed to not take any NSAIDs 7 days prior to surgery date. Specifically reviewed the risk of COVID 19 infection and possible consequences of ventilation and . This will be scheduled as a same-day surgery he understands this feels he has enough help at home. We would set him up for immediate outpatient physical therapy. Follow up 2 weeks post op or sooner if pain, swelling, numbness or associated symptoms, or concerns develop. All questions answered. Patient in agreement of plan. Orders Orders: Extremity Lower without Contra Today M17.11 Coding Level of Care Code Attention Self Rising [employer]our [employer]er Diagnoses Unilateral primary osteoarthritis, right knee M17.11 Chronic pain of right knee M25.561; G89.29 ??Chronicity: chronic I have re-examined the patient. There are no clinical changes since date of exam Essential Procedure Criteria Procedure Essential: Yes Criteria Note: patient assumes well informed risk and wishes to proceed due to on going progressive symptoms. Risk to Patient if Procedure Delayed: Presence of severe symptoms causing an inability to perform ADL's
[2019-07-31] MEDS: Lactated Ringers 1,000 ML 100 ML IV (10:34)
[2019-07-31 10:56] LABS: Bedside Glucose 111 mg/dL (70-110)
[2019-07-31] MEDS: Cefazolin 2 GM in 0.9% Normal Saline 100 ML IV (11:11)
[2019-07-31] MEDS: dexAMETHasone 10 MG/ML Vial IV (11:34)
[2019-07-31] MEDS: Lactated Ringers 1,000 ML 125 ML IV (12:35)
[2019-07-31] MEDS: Epinephrine (1 mg/ml) 1 MG/ML VIAL (13:05)
[2019-07-31] MEDS: Betamethasone/Betamethasone 30 MG/5 ML Vial (13:05)
[2019-07-31] MEDS: Bupivacaine Mpf 0.5% 30 ML VIAL (13:05)
--- NOTE | 2019-07-31 13:47 | DCINST_ITS ---
Discharge Diet: No Restrictions Weight Bearing Status: Weight bearing as tolerated Call your doctor if you observe: Shortness of breath, Chest pain Additional Instructions: Ice and elevate one week while not ambulating. Ambulation is encouraged. Weightbearing as tolerated. Use assistive devise for stability. Encourage FULL knee extension and flexion 1 time EVERY time you get up and down and MULTIPLE times per day. No showering 72 hours after surgery. Begin showering postop day #3. Remove the dressing prior to shower and gently wash with warm water and antibacterial soap then pat dry and place abdominal pad (or plain gauze) and MOUSTAPHA hose over top. This is to be done daily. Do not submerge for 3 weeks. If not showering daily after the initial 72 hours then you must clean incision and change dressing daily. Do not allow animals near the incision area. Keep clean. Follow anticoagulation recommendations as prescribed. Start physical therapy. If you are not currently scheduled for physical therapy or you are unsure of appointment time please call office [facility] to arrange. Call Dr. Blank with any concerns. Allergies/Adverse Reactions: Allergies ketorolac tromethamine [From Toradol] Allergy (Verified 07/26/19 08:25) Shortness of breath pollen extracts Allergy (Verified 07/26/19 08:25) Unknown Sulfa (Sulfonamide Antibiotics) Allergy (Verified 07/26/19 08:25) Swelling tolmetin sodium [From Tolectin] Allergy (Verified 07/26/19 08:25) Hives tetracycline [Tetracycline] Adverse Reaction (Verified 07/26/19 08:25) Other Medications to take at Discharge Buspirone HCl 7.5 mg PO DAILY 01/01/14 Fexofenadine/Pseudoephedrine [Katherin-D 24 Hour Tablet] 1 ea PO DAILY 01/01/14 Multivitamins,Therapeutic [Multivitamin] 1 tab PO DAILY 01/01/14 Testosterone [Testim] 4 gm TD DAILY 01/01/14 Oxycodone HCl/Acetaminophen [Percocet 7.5-325 mg Tablet] 1 ea PO BID PRN 03/31/18 Prasterone (Dhea) [Dhea 25] 25 mg PO DAILY 03/31/18 Omeprazole 40 mg PO PRN PRN 10/17/18 Acetaminophen [Tylenol Extra Strength] 1,000 mg PO Q6H PRN #100 tab 07/31/19 Apixaban [Eliquis] 2.5 mg PO BID #30 tab 07/31/19 Cephalexin [Keflex] 1,000 mg PO Q8 #4 cap 07/31/19 Oxycodone [Oxyir] 5 mg PO Q4H PRN PRN #60 tab 07/31/19 The following prescriptions were given: Apixaban [Eliquis] 2.5 mg PO BID #30 tab Transmission Status: Received by [facility] Cephalexin [Keflex] 1,000 mg PO Q8 #4 cap Transmission Status: Received by [facility] Oxycodone [Oxyir] 5 mg PO Q4H PRN PRN #60 tab PRN Reason: Pain Score 4-10/10 Transmission Status: Received by [facility] Acetaminophen [Tylenol Extra Strength] 1,000 mg PO Q6H PRN #100 tab Transmission Status: Received by [facility] Primary Care Physician: Darrian Ibarra DO [Primary Care Provider] - Test Results: Test results from this visit will be discussed in further detail at your follow- up appointment, if applicable. Please Follow Up With: Reginaldo Blank DO - 2 weeks
--- NOTE | 2019-07-31 13:48 | PCM.OPRPT ---
Report of Operation Date of Procedure: 07/31/19 Description of Surgical Findings:: Preoperative diagnosis: Right knee DJD Postoperative diagnosis: Same Procedure: Right total knee arthroplasty CT guided Robotic Assisted Implant: Stephanie triathlon press fit femoral component size 6, press-fit tibial baseplate size 6, press fit asymmetric patella size 35 polyethylene X3 size 9 CS Anesthesia: Spinal with adductor canal block Tourniquet time: 29 minutes at 300 mmHg Complications: None Condition: Stable to PACU Estimated blood loss: 50 cc Indication for procedure: This is a 64-year-old male with long standing degenerative joint disease of the knee who has failed conservative treatment and wished to proceed with elective total knee arthroplasty. Risk benefits and alternatives were reviewed including; risk of bleeding, infection, nerve artery and tissue damage, continued pain, postoperative stiffness, venous thromboembolism, need for postoperative rehabilitation, mechanical feel to the knee, and expected postoperative course. The operative CT and templating was performed with component sizing In addition to standard risk risk of COVID-19 exposure and potential consequences including respiratory failure ventilation and patient wishes to assume this risk secondary to ongoing progressive worsening symptoms that are limiting activities of daily living. Procedure: The patient was met in the preoperative holding area. The operative extremity was identified by both patient and physician and was marked. Patient was met by anesthesia. An adductor canal block was placed by anesthesia postoperatively the patient was brought back to the operating room on a wheeled cart and transferred to the operating table in the supine position. Anesthesia was started. A well-padded tourniquet was placed on the operative extremity. The patient was prepped and draped in the usual sterile fashion. A timeout was called to ensure the proper patient procedure and extremity were being contemplated. An Esmarch was used to exsanguinate the extremity. The tourniquet was inflated. A 10 blade scalpel was used to make a midline incision down through the skin and subcutaneous tissue. Skin retractors placed. Bovie was used to perform meticulous hemostasis. full-thickness flaps were elevated medial and lateral along the joint capsule. A deep blade scalpel was used to perform a medial parapatellar arthrotomy. The knee was brought to full extension. A Bovie was used to release the soft tissues off the most proximal aspect of the medial tibial plateau a three-quarter inch curved osteotome was also used for this process. The infrapatellar fat pad was excised. The fat pad was excised partially anterior lateral portion the anterior medial was elevated from the femur. At this point our intra-articular femoral array was placed of a 45 degree angle proximal and posterior to the medial epicondyle. Our tibial array was placed greater than 1 hands breath below the incision at a 20 degree angle stab incisions were used for this case were attached and checked with the robotic software. At this point registration morales were taken throughout the knee as well as checkpoints placed in the femur and tibia once the knee was registered then tensioned the medial and lateral ligaments in extension and 90 degrees of flexion. We then used these numbers to adjust our components within parameters to balance the knee in both flexion and extension once this was done on our monitor we then proceeded with using the robotic arm to make our tibial plateau cut and anterior posterior and chamfer cuts on the femur we then trialed and achieved the desired plan with a well-balanced knee. Lug holes were drilled in the femur the tibia preparation was completed with a fin punch and the patella was prepared by first using a caliper to ensure sufficient bone stock and a patellar reamer to remove the desired amount of bone locals were drilled for an asymmetric poly-. We then brought the knee through range of motion with excellent patellar tracking. We thoroughly irrigated the knee with a trial components were removed a posterior capsular injection with her standard cocktail was performed the aqua Ambrocio was also used to aid in hemostasis. Betadine rinse was allowed to sit and washed out components were press-fit into place. Aricept rinse was then used followed by several more rate liters of irrigation after it was allowed to sit. Joint capsule was closed with #1 Ethibond [id number] followed by Vicryl in the subcutaneous tissues staple in the skin arrays and checkpoints were removed prior to closure all counts were correct stab incisions were closed with a stable standard dressing in the form of Mepilex for the main incision Xeroform 4 x 4 and Tegaderm over pin site holes web roll and Jeff wrap applied from the foot to the groin. Patient tolerated the procedure well she was directed to PACU in stable condition no intraoperative complications
--- NOTE | 2019-07-31 14:12 | RAD_ITS ---
STUDY: X-RAY - RIGHT KNEE REASON FOR EXAM: Male, 64 years old. Post op.. TECHNIQUE: 2 views of the knee. COMPARISON: None. FINDINGS: Normal density of the visualized distal femur. 2 parallel pin tracks are incidentally noted the proximal third of the tibial diaphysis. Normal density of the visualized proximal fibula. Normal proximal tibiofibular articulation. There is no demonstrated fracture. The patient has undergone a right total knee arthroplasty. Metal prostheses overlying the femoral condyles, tibial plateau, and posterior aspect of the patella appear well seated, and in anatomic alignment. Gas lucencies in the peripatellar tissues are consistent with the recent surgery. There are numerous metal skin savage along the anterior midline. RAD/Knee 1 or 2 Views IMPRESSION: Status post right total knee arthroplasty. Electronically Signed: Matt Rudolph MD at 14:35 EDT , Service support ,
--- NOTE | 2019-07-31 15:16 | SUR.PHASEI ---
583ml noted with bladder scanner in area of discomfort
--- NOTE | 2019-07-31 15:35 | SUR.PHASEI ---
straight cath pt for 800 ml
[2019-07-31] MEDS: oxyCODONE 5 MG Tablet PO ×2 (17:31→18:04)
[2019-07-31] MEDS: Cefazolin 1 GM/50 ML BAG IV (17:56)
[2019-07-31] MEDS: Tamsulosin HCl 0.4 MG Capsule PO (18:37)
== END 2019-07-31 19:28 | disposition home or self-care (01) ==
LOC: SDC 09:00 → AC 09:00
PROVIDERS: Anesthesiology; PCP Family Medicine; Referring Provider Orthopaedic Surgery; Visit Provider Orthopaedic Surgery
PROC: 0SRC0JZ Replacement of Right Knee Joint with Synthetic Substitute, Open Approach (ICD-10-PCS; CPT 27447; principal; 2019-07-31 10:30)
DX: M17.11 Unilateral primary osteoarthritis, right knee (principal); G89.29 Other chronic pain; I10 Essential (primary) hypertension; K21.9 Gastro-esophageal reflux disease without esophagitis; Z79.899 Other long term (current) drug therapy; Z11.59 Encounter for screening for other viral diseases
CPT/HCPCS: 27447; 36415; 73560; 82962; 83735; 85610; 85730; 86850; 86900; 86901; 87635; 97161; C1776; G2023; J7120; J0702; U0002

== ENCOUNTER → 2019-08-21 | Outpatient (CLI) | payer MEDICARE, OTHER, SELFPAY ==
[2019-08-13 10:29] VITALS: BMI 25.7
--- NOTE | 2019-08-21 15:56 | VDLE_ITS ---
Reason For Study: pain RIGHT GSV is normal. CFV is compressible, spontaneous, phasic, competent and demonstrates normal augmentation. FV is compressible, spontaneous, phasic, competent and demonstrates normal augmentation. POP V is compressible, spontaneous, phasic, competent and demonstrates normal augmentation. T/P Trunk is compressible. PTV is compressible. RT PerV is compressible. Procedure Exam performed in department. The exam was abbreviated due to the COVID 19 protocol. The exam was diagnostic. A preliminary report was called and/or faxed to Dr. Blank. Interpretation Summary There is no evidence of right lower extremity deep vein thrombosis. Right great saphenous vein appears patent and compressible segmentally. Abbreviated Covid-19 protocol Ordering Physician: Reginaldo Blank Performed By: Ray Bush RVT
== END | disposition home or self-care (01) ==
LOC: CVS 15:56
PROVIDERS: PCP Family Medicine; Referring Provider Orthopaedic Surgery; Visit Provider Orthopaedic Surgery
DX: M79.661 Pain in right lower leg (principal)
CPT/HCPCS: 93971

== ENCOUNTER 2019-10-08 09:00 | Outpatient (RCR) | payer MEDICARE, OTHER, SELFPAY ==
[2019-07-13 08:52] VITALS: BMI 26.2
[2019-07-31 09:55] VITALS: BMI 25.7
--- NOTE | 2019-08-02 10:58 | HP.PTEVAL ---
Patient's Visit Information VAUGHN DINERO is a 64 year old M referred to Physical Therapy by Dr. Reginaldo Blank DO with a diagnosis of R TKA 07/31/19. Date of Evaluation: 08/02/19 Physical Therapist: Cam Santillan PT, ATC - Visit Plan Frequency: 2-3x /Week Duration: 4-6 Weeks Plan: PROM/mobs, R LE stretching and strengthening, balance and proprio, core strengthening, bike, and HEP - Subjective DOS: 07/31/19. Pt reports he has had R knee pain for approximately 2 years. Pt reports he had a R TKA performed. Pt reports he is in a lot of pain this morning. Pt reports his nerve block wore off yesterday, and that is when the pain really kicked in. pt reports he was running sprints in his back yard prior to having his knee surgery. No tingling or numbness in R LE on this date. Pt reports sleep difficulty secondary to pain. Pt reports he has stairs at home that he needs to be able to negotiate to let his dogs outside, but he hasnt attempted those yet. Pt is retired at this time. 7/10 pain at rest, 10/10 pain at worst (throughout the night) - Pain R Knee Pain Intensity (Out of 10): 7 Pain Intensity Range: 10 - Objective Neuro: B LE sensation is WNL to light touch. Girth at joint line: R knee 39 cm, L knee 34 cm. Palpation: R knee is warm to the touch. No apparent redness or signs of infection. Incision still covered. ROM: R knee 0-20-90, L knee 0-125. MMT: L knee 5/5, R knee 3+/5 - Goals Goal 1:: Decrease R knee pain x 50 to aid with sleep Goal Time Frame: 4-6 Weeks Goal 2:: Increase R knee ROM x 30 degrees to aid with ambulation Goal Time Frame: 4-6 Weeks Goal 3:: Increase R knee strength x 1 grade to aid with stair negotiation Goal Time Frame: 4-6 Weeks Goal 4:: I with HEP Goal Time Frame: 4-6 Weeks - Rehabilitation Potential Physical Therapy Diagnosis: Pt has R knee pain, weakness, and limited ROM secondary to R TKA Rehabilitation Potential: Good - Anticipated Interventions Patient/Client Instruction: Educate patient on: Condition, Plan of Care For the Purpose of:: To improve self management Therapeutic Exercise to Include: Strength training, Endurance training, Balance training, Flexibilty training, Gait and locomotor training, Passive ROM, Active ROM, Dynamic Lumbar Stabilization For the Purpose of:: To decrease pain, To increase ROM, To improve muscle performance and motor function Cryotherapy (ice pack, ice massage): Yes For the Purpose of:: To decrease pain Thank you for the opportunity to evaluate your patient. For Medicare and Medicare HMO plans, please review the plan of care and approve it. It will need to be FAXED BACK to us at [phone] for Medicare purposes. For Medicare only, by signing this I certify the plan of care. Please let me know if there are questions or concerns regarding this plan of care. Physician Signature: Date:
--- NOTE | 2019-09-10 10:01 | HP.PTREVAL ---
Dr. Reginaldo Blank, DO, It has been my pleasure to treat VAUGHN DINERO over the last 17 visits for R TKA 07/31/19. Please see the progress note below for an update on the physical therapy plan of care! Subjective: I was sore after last Rx. better today Objective/Function: R knee pain 6-/10. R knee RhroughoutOM: 0-5-128. R Knee MMT: 4+/5. Pt is progressing well toward Rx goals Plan Plan: PROM/mobs, R LE stretching and strengthening, balance and proprio, core strengthening, bike, and HEP Goals Goal 1:: Decrease R knee pain x 50 to aid with sleep Goal Time Frame: 4-6 Weeks Goal 2:: Increase R knee ROM x 30 degrees to aid with ambulation Goal Time Frame: 4-6 Weeks Goal 3:: Increase R knee strength x 1 grade to aid with stair negotiation Goal Time Frame: 4-6 Weeks Goal 4:: I with HEP Goal Time Frame: 4-6 Weeks Anticipated Interventions Patient/Client Instruction: Educate patient on: Condition, Plan of Care For the Purpose of:: To improve self management Therapeutic Exercise to Include: Strength training, Endurance training, Balance training, Flexibilty training, Gait and locomotor training, Passive ROM, Active ROM, Dynamic Lumbar Stabilization For the Purpose of:: To decrease pain, To increase ROM, To improve muscle performance and motor function Cryotherapy (ice pack, ice massage): Yes For the Purpose of:: To decrease pain Please do not hesitate to contact me at [phone] by phone or if you have questions or concerns regarding this new plan of care! Sincerely, Cam Santillan, PT, ATC
--- NOTE | 2019-10-08 09:47 | HP.PTDCSUM ---
It has been my pleasure to treat VAUGHN DINERO referred by Dr. Reginaldo Blank DO, with the diagnosis of R TKA 07/31/19 for a total of 27 visit(s). Discharge Date: Please see the following information for a summary of their discharge status. Subjective: I am ready to be done. R Knee Pain Intensity (Out of 10): 4 % Improvement: 75 Objective/Function: R knee pain ranges from 4-7/10. R knee MMT: 5/5 throughout. R knee ROM: 0-4-125. I with HEP. Rx goals achieved Goal 1:: Decrease R knee pain x 50 to aid with sleep Goal Progress: Goal Met Goal 2:: Increase R knee ROM x 30 degrees to aid with ambulation Goal Progress: Goal Met Goal 3:: Increase R knee strength x 1 grade to aid with stair negotiation Goal Progress: Goal Met Goal 4:: I with HEP Goal Progress: Goal Met Plan: Discharge If there are questions or concerns regarding this patient's physical therapy, please feel free to call me at [phone]. Thank you for the referral of this patient. Sincerely, Cam Santillan, PT, ATC
== END 2019-10-08 19:00 | disposition home or self-care (01) ==
LOC: PT 09:00
PROVIDERS: PCP Family Medicine; Referring Provider Orthopaedic Surgery; Visit Provider Orthopaedic Surgery
DX: Z47.1 Aftercare following joint replacement surgery (principal); Z96.651 Presence of right artificial knee joint
CPT/HCPCS: 97110; 97140; 97161; 97164

== ENCOUNTER → 2019-10-22 10:09 | Outpatient (CLI) | payer MEDICARE, OTHER, SELFPAY ==
[2019-10-22 10:02] VITALS: BMI 25.7
--- NOTE | 2019-10-22 10:10 | RAD_ITS ---
STUDY: X-RAY - RIGHT KNEE REASON FOR EXAM: Male, 64 years old. Knee pain post arthroscopy TECHNIQUE: 4 view(s) of the knee. COMPARISON: Comparison is made with prior study dated 07/31/2019. FINDINGS: Normal visualized distal femur. Normal visualized proximal tibia and fibula. Normal proximal tibiofibular articulation. The patient is status post total knee replacement. There is good alignment. Large joint effusion as well as a prepatellar and infrapatellar soft tissue swelling. RAD/Knee 4 or More Views IMPRESSION: Status post total knee replacement. Large joint effusion and infrapatellar and prepatellar soft tissue swelling. Electronically Signed: Ronny Copeland, at 12:18 EDT , Service support ,
== END ==
PROVIDERS: PCP Family Medicine; Referring Provider Orthopaedic Surgery; Visit Provider Orthopaedic Surgery
DX: M25.561 Pain in right knee (principal)
CPT/HCPCS: 73564

== ENCOUNTER → 2019-11-07 15:54 | Outpatient (CLI) | payer MEDICARE, OTHER, SELFPAY ==
[2019-11-07 14:26] VITALS: BMI 25.7
[2019-11-07 16:50] LABS: Pathologist Comment May follow
[2019-11-07 18:23] LABS: RBC /Synovial Fluid 0.027 10^6/uL (0); Synovial Fld Mononuclear WBC % 80.9 %; Synovial Fld Polynuclear WBC # 0.065 10^3/uL; Synovial Fld Polynuclear WBC % 19.1 %
[2019-11-07 20:04] LABS: AUTO B FLUID DILUENT BKGD CT WBC <0.1 RBC <0.01 (W<.1,R<.01); Source / Synovial Fluid R KNEE; Source- Body Fluid SYNOVIAL
[2019-11-07 20:09] LABS: Appearance /Synovial Fluid Cloudy (CLEAR); Color / Synovial Fluid Red (Pale Yellow)
[2019-11-07 20:20] LABS: Lymph 48 %; Monocyte /Synovial Fluid 19 %; Neutrophil 16 % (0-25); Other Cell /Synovial Fluid 17 %
[2019-11-07 20:21] LABS: Body Fluid QC Type(s) BF1Q,BF2Q
[2019-11-08 13:46] LABS: Pathologist Review Reviewed
[2019-11-12 13:31] LABS: GLUCOSE, SYNOVIAL FLUID 96 mg/dL (.); PROTEIN, SYNOVIAL FLUID 3.9 g/dL (.)
== END ==
PROVIDERS: PCP Family Medicine; Visit Provider Orthopaedic Surgery
DX: M25.461 Effusion, right knee (principal); Z96.659 Presence of unspecified artificial knee joint
CPT/HCPCS: 82945; 84157; 87070; 87075; 87205; 89050; 89051; 89060

== ENCOUNTER → 2019-11-09 | Outpatient (CLI) | payer MEDICARE, OTHER, SELFPAY ==
[2019-11-07 14:26] VITALS: BMI 25.7
[2019-11-09 15:38] LABS: Absolute Lymphocyte Count 1.63 X10^3/uL (0.83-4.51); Absolute Neutrophil Count 2.1 X10^3/uL (2.0-7.7); Basophil# 0.03 X10^3/uL; Basophil% 0.7 % (0-1); Eosinophils% 2.4 % (0-5); Hematocrit 39.7 % (40-54); Hemoglobin 13.2 g/dL (13.0-16.5); Lymphocyte # 1.63 X10^3/ul (4.0); Lymphocyte % 39.6 % (19-41); Mean Corp Hgb Conc 33.2 g/dL (32-36); Mean Corpuscular Hgb 28.8 pg (27.0-32.0); Mean Corpuscular Volume 86.5 fL (80-94); Mean Platelet Vol. 10.5 fl (6.2-12.0); Monocyte# 0.27 X10^3/uL; Monocyte% 6.6 % (0-10); NRBC Flagged by Analyzer 0 % (0-5); Neutrophil # 2.08 X10^3/uL (2.7-7.7); Neutrophil % 50.5 % (47-70); Platelet Count 193 K/mm3 (150-450); RBC Distribution Width CV 13.5 % (11.6-14.6); RBC Distribution Width SD 42.2 fl (35.1-43.9); Red Blood Count 4.59 M/mm3 (4.6-6.2); White Blood Count 4.1 K/mm3 (4.4-11.0)
[2019-11-09 16:13] LABS: Erythrocyte Sedimentation Rate 6 mm/hr (0-20)
[2019-11-09 16:14] LABS: CRP < 2.90 mg/L (0.0-3.0)
== END | disposition home or self-care (01) ==
LOC: MTLAB 11:56
PROVIDERS: PCP Family Medicine; Referring Provider Orthopaedic Surgery; Visit Provider Orthopaedic Surgery
DX: D70.9 Neutropenia, unspecified (principal); M25.461 Effusion, right knee; Z96.659 Presence of unspecified artificial knee joint
CPT/HCPCS: 36415; 85025; 85652; 86140

== ENCOUNTER → 2019-11-14 16:09 | Outpatient (CLI) | payer MEDICARE, OTHER, SELFPAY ==
[2019-11-07 14:26] VITALS: BMI 25.7
[2019-11-12 14:28] VITALS: BMI 25.7
--- NOTE | 2019-11-14 16:14 | MRI_ITS ---
STUDY: MRI CERVICAL SPINE WITHOUT CONTRAST REASON FOR EXAM: Male, 64 years old. STENOSIS, H/O PRIOR CERVICAL SX, C/O L HAND PAIN X 1YR TECHNIQUE: Standardized fat and water weighted pulse sequences were obtained in the sagittal and axial planes. COMPARISON: 10/12/2014 FINDINGS: Normal foramen magnum and brainstem-cervical cord junction. Normal craniovertebral junction. Normal anterior atlantoaxial articulation. Normal odontoid process. Normal cervical lordosis. Anterior surgical fusions from C5 through C7. C2-3: Normal endplates. Normal disc height, signal and morphology. Normal central canal and intervertebral neural foramina. C3-4: Disc osteophyte complex and left facet hypertrophy with severe left and moderate right foraminal stenoses. C4-5: Disc osteophyte complex and left facet hypertrophy with mild central canal and severe right and moderate left foraminal stenoses. C5-6: Surgical fusion of the C5-6 disc space. Residual osteophyte without compressive sequelae. C6-7: Disc osteophyte complex with mild central canal and severe left and mild right foraminal stenoses. C7-T1: Disc osteophyte complex without compressive sequelae. Normal cervical cord. Normal visualized soft tissue structures. MRI/Spine Cervical (Routine) IMPRESSION: Multilevel degenerative disease and postoperative change as described. Severe foraminal stenoses on the left at C3-4, on the right at C4-5, and on the left at C6-7. Electronically Signed: Toribio Calabrese MD at 20:01 EDT Tel , Service support ,
== END ==
PROVIDERS: PCP Family Medicine; Referring Provider Nurse Practitioner; Visit Provider Nurse Practitioner
DX: M48.02 Spinal stenosis, cervical region (principal); G95.9 Disease of spinal cord, unspecified
CPT/HCPCS: 72141

== ENCOUNTER → 2019-12-05 | Outpatient (CLI) | payer MEDICARE, OTHER, SELFPAY ==
[2019-12-05 09:50] VITALS: BMI 25.7
== END | disposition home or self-care (01) ==
LOC: LABSPEC 10:11
PROVIDERS: PCP Family Medicine; Visit Provider Orthopaedic Surgery
DX: M25.461 Effusion, right knee (principal); Z96.651 Presence of right artificial knee joint
CPT/HCPCS: 87015; 87070; 87075; 87101; 87116; 87205; 87206

== ENCOUNTER → 2019-12-24 | Outpatient (CLI) | payer MEDICARE, OTHER, SELFPAY ==
[2019-12-05 09:50] VITALS: BMI 25.7
[2019-12-24 06:36] LABS: Absolute Lymphocyte Count 1.75 X10^3/uL (0.83-4.51); Absolute Neutrophil Count 2.1 X10^3/uL (2.0-7.7); Basophil# 0.03 X10^3/uL; Basophil% 0.7 % (0-1); Eosinophil# 0.17 X10^3/uL; Eosinophils% 3.9 % (0-5); Hematocrit 41.8 % (40-54); Hemoglobin 13.8 g/dL (13.0-16.5); Lymphocyte # 1.75 X10^3/ul (4.0); Lymphocyte % 39.8 % (19-41); Mean Corpuscular Hgb 29.5 pg (27.0-32.0); Mean Corpuscular Volume 89.3 fL (80-94); Mean Platelet Vol. 9.4 fl (6.2-12.0); Monocyte# 0.33 X10^3/uL; Monocyte% 7.5 % (0-10); NRBC Flagged by Analyzer 0 % (0-5); Neutrophil # 2.11 X10^3/uL (2.7-7.7); Neutrophil % 47.9 % (47-70); Platelet Count 178 K/mm3 (150-450); RBC Distribution Width CV 14.5 % (11.6-14.6); RBC Distribution Width SD 46.4 fl (35.1-43.9); Red Blood Count 4.68 M/mm3 (4.6-6.2); White Blood Count 4.4 K/mm3 (4.4-11.0)
[2019-12-24 07:06] LABS: ALB/GLOB Ratio 1.2 RATIO (0.9-2.4); AST(SGOT) 15 U/L (15-37); Alanine Aminotransfer ALT/SGPT 22 U/L (16-61); Albumin, Serum 3.9 g/dL (3.2-5.0); Alkaline Phosphatase 65 U/L (45-117); Anion Gap 4 (5-15); BUN 15 mg/dL (7-18); BUN/Creat Ratio 11.9 RATIO (10-20); Calcium,Total 9.1 mg/dL (8.5-10.1); Chloride 105 mmol/L (98-107); Cholesterol 210 mg/dL (200); Creatinine, Serum 1.26 mg/dL (0.70-1.30); EST Glomerular Filtration Rate 61 mL/min (>60); Est Glom Filt Rate - Afr Amer 74 mL/min (>60); Globulin 3.3 g/dL (2.2-4.2); Glucose 98 mg/dL (74-106); High Density Lipoprotein 78 mg/dL; Protein, Total 7.2 g/dL (6.4-8.2); Sodium Level 140 mmol/L (136-145); Triglycerides 121 mg/dL; Very Low Density Lipoprotein 24 mg/dL (5-40)
[2019-12-24 09:34] LABS: Hemoglobin A1c 5.4 % (3.8-5.6)
[2019-12-28 15:32] LABS: PSA, Free 0.25 ng/mL; PSA, Free % 35.7 % (.); PSA, Total Ultrasensitive 0.7 ng/mL (0.0-4.0); Testosterone, % Free 3.29 % (1.50-4.20); Testosterone, Total 389 ng/dL (264-916)
== END | disposition home or self-care (01) ==
LOC: LAB 05:52
PROVIDERS: PCP Family Medicine; Referring Provider Internal Medicine Endocrinology, Diabetes & Metabolism; Visit Provider Internal Medicine Endocrinology, Diabetes & Metabolism
DX: E78.2 Mixed hyperlipidemia (principal); E29.1 Testicular hypofunction
CPT/HCPCS: 36415; 80053; 80061; 83036; 84153; 84154; 84402; 84403; 85025

== ENCOUNTER 2020-01-24 05:51 | Inpatient (IN) | payer MEDICARE, OTHER, SELFPAY ==
[2019-12-05 09:50] VITALS: BMI 25.7
[2020-01-11 09:31] LABS: Prothrombin Time (Protime)PT. 12.2 SECONDS (11.7-14.9)
[2020-01-11 09:32] LABS: Partial Thromboplast Time 26.1 Seconds (24.1-36.2)
[2020-01-24] VITALS (14 sets, daily range): BP systolic 98–136; BP diastolic 47–85; PULSE 68–89; RESP 14–18; TEMP 35.9–36.9; O2SAT 94–100; BMI 25.7
[2020-01-24] MEDS: Scopolamine 1mg/72hr Patch 1 PATCH TRANSDERM. (06:36)
[2020-01-24] MEDS: Acetaminophen 500 MG Tablet 1000 MG PO ×3 (06:36→21:30)
[2020-01-24] MEDS: Gabapentin 600 MG Tablet PO (06:37)
[2020-01-24] MEDS: Lactated Ringers 1,000 ML 999 ML IV (06:37)
--- NOTE | 2020-01-24 06:54 | PCM.HP.BLA ---
History and Physical Date of Admission: 01/24/20 Intake Intake Visit Reasons: right knee Chief Complaint: right knee Accompanied by: self Is patient in pain?: Yes Allergies ketorolac tromethamine [From Toradol] Allergy (Verified 11/12/19 14:28) Shortness of breath pollen extracts Allergy (Verified 11/12/19 14:28) Unknown Sulfa (Sulfonamide Antibiotics) Allergy (Verified 11/12/19 14:28) Swelling tolmetin sodium [From Tolectin] Allergy (Verified 11/12/19 14:28) Hives tetracycline [Tetracycline] Adverse Reaction (Verified 11/12/19 14:28) Other Medications Buspirone HCl 7.5 mg PO DAILY 01/01/14 [History Confirmed 01/07/20] Fexofenadine/Pseudoephedrine [Katherin-D 24 Hour Tablet] 1 ea PO DAILY 01/01/14 [History Confirmed 01/07/20] Multivitamins,Therapeutic [Multivitamin] 1 tab PO DAILY 01/01/14 [History Confirmed 01/07/20] Testosterone [Testim] 4 gm TD DAILY 01/01/14 [History Confirmed 01/07/20] Prasterone (Dhea) [Dhea 25] 25 mg PO DAILY 03/31/18 [History Confirmed 01/07/20] Omeprazole 40 mg PO PRN PRN 10/17/18 [History Confirmed 01/07/20] Acetaminophen [Tylenol Extra Strength] 1,000 mg PO Q6H PRN #100 tab 07/31/19 [Rx Confirmed 01/07/20] cyclobenzaprine 10 mg tablet 10 mg PO TID PRN #21 tab 10/22/19 [Rx Confirmed 01/07/20] PFSH Medical History (Updated 07/31/19 @ 10:[address] 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 Reginaldo Blank DO) Smoking Status: Never smoker HPI right knee: Details: Parts of this documentation were recorded by a scribe, this documentation accurately reflects the service provided and the decisions made by me, Dr. Reginaldo Blank DO 01/07/20 0803. VAUGHN DINERO is a 64 year old M here today for F/U on right knee swelling and pain. S/P right TKA. DOS: 07/31/2019. Patient continues to have right knee joint effusion and pain post operatively despite 3 aspirations of the right knee. He has a final on the Acid Fast Bacillus Culture and fungal are pending. He is here today to further discuss a revision surgery of the right TKA. Pain over the medial knee with ambulation. pain is worse at night and with activities it is anterior and posterior. ROS Musc Reports joint pain, Reports joint swelling, Denies numbness, Denies tingling Skin/Breast Reports system reviewed and no additional complaints, except as docu Neuro No numbness, No tingling Ortho Exam General General: Yes no acute distress Neurologic: Yes alert, Yes oriented x3 Psychologic: Yes reasonable and appropriate Right Knee Date of Surgery: 07/31/19 Skin/Wound: No erythema, No ecchymosis, Yes swelling Homans Sign: No 1+: Effusion (about 20cc) Knee ROM: No ROM-Extension -20 to 0 (lacking 10), No ROM-Flexion 0-140 (115) Examination: Yes Lat jt line tenderness Stability: NML: Anterior Drawer, NML: Posterior Drawer, NML: Valgus 30, NML: Varus 30 Apprehension with Lateral Translation: No KNEE: pain adjacent to patellar tendon TTP over lateral tibial plateau no collateral instability non tender over hamstrings Supplemental Info 10/22/2019 x-ray right knee status post total knee arthroplasty Assessment & Plan Problems 1. History of total right knee replacement Z96.651 2. Effusion of right knee joint M25.461 Plan Personally reviewed patients x-rays of the right knee. Considering Mr. Lowery ongoing severe pain at night with recurrent effusions in the light of 2 - culture aspirations and recurrence of joint effusions I suspect there is possibly a loose arthroplasty component, We are still waiting for final fungal results to be expected to be final next week he does wish to proceed with revision to cemented components. To obviate any micromotion that may be causing effusion and pain. We did discuss that if the patellar implant is well fixed we may consider leaving it. In addition he does have a flexion contracture which we will attempt to correct. Reviewed the pre-operative plans with the patient. Risks and benefits of the procedure were fully explained, including but not limited to infection, neurovascular injury, continued pain, stiffness, need for further surgery, re-injury, DVT, PE, general risks of anesthesia, and loss of limb or life, Continue knee effusionsHardware failure need for further surgery. The patient understands all the risks and does wish to proceed with written consent. We will set his surgery up for January 24 2020. No NSAID for 7 days prior to surgery. Dont take the Katherin the day of the surgery and we will need clearance from the Washing Tub Operator Dr. Trammell for the testosterone. Follow up 2 weeks post op or sooner if pain, swelling, numbness or associated symptoms, or concerns develop. All questions answered. Patient in agreement of plan. Orders Orders: Knee 3 Views Today M25.461, Z96.651 Coding Level of Care Code Off vis,est,level 3 Diagnoses History of total right knee replacement Z96.651 Effusion of right knee joint M25.461 I have re-examined the patient. There are no clinical changes since date of exam
[2020-01-24 07:11] LABS: Bedside Glucose 94 mg/dL (70-110)
--- NOTE | 2020-01-24 07:15 | SYN_PTH ---
PATIENT: VAUGHN DINERO LOC: [facility] U#:[id number] AGE/SX: 64/M ROOM: MN324 RE01/24/[address]: Dr. Reginaldo Blank DO : 1955 BED: 1 DIS: 01/25/2020 SPEC #: [id number] RECD: 01/24/20 09:46 STATUS: JP REQ #: [id number] HELGA: 01/24/20 07:[address]: Reginaldo Blank DEPT: SURGICAL PATHOLOGY RECD BY: Yusef Carlisle ENTERED: 01/24/20 10:40 SP TYPE: SYNOVIUM OTHR DR: Dr. Darrian Ibarra DO Tissues: Synovial tissue of joint, NOS Procedures: Surgery Specimen Level IV HEADER OPERATION: Knee revision of total knee arthroplasty PRE-OP DIAGNOSIS: Total right knee replacement; effusion of right knee joint TISSUE SUBMITTED: Right knee synovium MICROSCOPIC DIAGNOSIS Right knee synovium: A piece of dense fibroconnective tissue and synovial tissue with extensive reactive changes. RAYA:donavan 01/25/20 MICROSCOPIC DESCRIPTION Slides are reviewed. GROSS DESCRIPTION Received in fixative is one container labeled with the patient's name and designated right knee synovium. The specimen consists of a piece of vargas soft tissue measuring 5 x 2 x 0.4 cm. Sections do not reveal any mass lesion. Ensemble Member sections are submitted in one cassette. / RAYA:donavan 01/24/20 TC:5 CPT: 81536
[2020-01-24] MEDS: Cefazolin 2 GM in 0.9% Normal Saline 100 ML IV (07:30)
[2020-01-24] MEDS: dexAMETHasone 10 MG/ML Vial IV (07:30)
[2020-01-24] MEDS: Epinephrine (1 mg/ml) 1 MG/ML VIAL (08:30)
[2020-01-24] MEDS: Bupivacaine Mpf 0.5% 30 ML VIAL (08:30)
--- NOTE | 2020-01-24 09:17 | OP.PCM_ITS ---
Report of Operation Date of Procedure: 01/24/20 Description of Surgical Findings:: Preoperative diagnosis: Right knee status post total knee arthroplasty recurrent knee effusion suspected hardware failure Postoperative diagnosis: Right knee stable implant knee arthroplasty with synovitis Procedure: Right knee open irrigation debridement polyethylene exchange and synovectomy Anesthesia: General with postoperative adductor canal block EBL: 175 Specimens: Synovium Complications: None Condition: Stable to PACU Indication for procedure: This is a pleasant 64-year-old male who underwent garfield assisted total knee arthroplasty early July 2019. Patient had no postoperative complications however he developed knee effusion shortly after surgery and has maintained these for 6 months now we have aspirated the knee multiple times all aspirates being negative for infection including fungal. In addition we did perform an alpha defense and assay which was also negative and crystal analysis were negative. All synovial aspirates did not have appearance of infection visually or upon synovial fluid analysis . Postoperative x-rays did not demonstrate any gross loosening see around the implants however due to the ongoing recurrent effusions and pain we did discuss open exploration of the knee possible revision of any loose components and synovectomy . risk benefits and alternatives were reviewed including risk of bleeding infection nerve, artery, bone, tissue damage, blood clot need for further surgery and continued pain and effusion. Procedure: Patient was met in pre-operative holding area once again the operative extremity was then affected with patient and physician was marked patient was met by anesthesia perfect the operating room and will cart transfer the operative table supine position. Anesthesia was started. Patient was prepped and draped in usual sterile fashion a timeout was called to ensure the proper patient procedure and extremity were being contemplated. Range of motion was evaluated patient had near full extension and full flexion there was no instability to collateral ligaments and no signs of infection visually besides joint effusion. Esmarch was used to exsanguinate the extremity the tourniquet was inflated to 250 mmHg the previous incision was used full-thickness subc utaneous flaps were elevated medial and lateral along the joint capsule the previous medial parapatellar arthrotomy was performed and a quadriceps snip was performed to allow for aided visualization there was thickening of the joint capsule and synovium a complete synovectomy was performed and evaluation of the components was performed the extractor tools were attached to the femoral and tibial components and there was no loosening of either component occluding patellar .polyethylene was removed to allow for complete visualization and synovectomy. Tissue samples were sent for pathology of the synovium and culture. The knee was thoroughly irrigated with several liters of irrigation followed by the Betadine rinse which was allowed to sit for several minutes followed by more irrigation followed by Aricept rinse for 1 minute followed by repeat irrigation a new polyethylene liner was placed and the capsule was repaired proximally with #2 FiberWire followed by #1 Ethibond more distally cut aneous tissues were closed with 2-0 Vicryl followed by savage in the skin Hemovac drain was placed prior to joint capsule closure. Dressing was applied form of Mepilex web roll and an Jeff wrap. No intraoperative complications all counts were correct patient brought back to the PACU in stable condition. - Admit VTE Documentation VTE Mechan Device Prophylaxis: SCD's
--- NOTE | 2020-01-24 09:25 | RAD_ITS ---
STUDY: X-RAY - RIGHT KNEE REASON FOR EXAM: Male, 64 years old. POST OP TKA TECHNIQUE: 2 view(s) of the knee. COMPARISON: Comparison is made with prior study dated 01/07/2020. FINDINGS: The patient is status post total knee replacement. There is good alignment. Joint effusion and postoperative soft tissue changes. RAD/Knee 1 or 2 Views IMPRESSION: Status post total knee replacement. There is good alignment. Electronically Signed: Ronny Copeland, at 10:45 EST , Service support ,
[2020-01-24] MEDS: Cefazolin 1 GM/50 ML BAG IV ×2 (09:42→21:31)
[2020-01-24] MEDS: oxyCODONE 5 MG Tablet PO ×2 (13:30→18:03)
[2020-01-24] MEDS: Lactated Ringers 1,000 ML 125 ML IV (15:12)
--- NOTE | 2020-01-24 17:45 | NURSING ---
This nurse into room, patient had gotten himself back into bed from the chair. Hemovac drain noted to have been pulled out at this time. Will notify
[2020-01-24] MEDS: Senna/Docusate Sodium 1 Tablet 2 TABLET PO (21:30)
[2020-01-25 03:38] VITALS: BP 102/55; PULSE 73; RESP 16; TEMP 36.7; O2SAT 98
[2020-01-25] MEDS: oxyCODONE 5 MG Tablet PO ×3 (06:03→10:21)
[2020-01-25] MEDS: APIXABAN 2.5 MG TABLET PO (06:03)
[2020-01-25] MEDS: Acetaminophen 500 MG Tablet 1000 MG PO (06:03)
[2020-01-25] MEDS: Cefazolin 1 GM/50 ML BAG IV (06:38)
--- NOTE | 2020-01-25 07:05 | PCM.DC.ORTHO ---
Discharge Diet: No Restrictions Weight Bearing Status: Weight bearing as tolerated Call your doctor if you observe: Shortness of breath, Chest pain Additional Instructions: Ice and elevate one week while not ambulating. Ambulation is encouraged. Weightbearing as tolerated. Use assistive devise for stability. Encourage FULL knee extension and flexion 1 time EVERY time you get up and down and MULTIPLE times per day. No showering 72 hours after surgery. Begin showering postop day #3. Remove the dressing prior to shower and gently wash with warm water and antibacterial soap then pat dry and place abdominal pad (or plain gauze) and MOUSTAPHA hose over top. This is to be done daily. Do not submerge for 3 weeks. If not showering daily after the initial 72 hours then you must clean incision and change dressing daily. Do not allow animals near the incision area. Keep clean. Follow anticoagulation recommendations as prescribed. Do not take any NSAIDs while on blood thinner. Do not take any additional narcotic pain medication other than what was prescribed on you surgery day without discussing with physician. supplement with 1000mg tylenol every 6 hrs to minimize narcotic use. Start physical therapy. If you are not currently scheduled for physical therapy or you are unsure of appointment time please call office [facility] to arrange. Call Dr. Blank with any concerns. Allergies/Adverse Reactions: Allergies ketorolac tromethamine [From Toradol] Allergy (Verified 11/12/19 14:28) Shortness of breath pollen extracts Allergy (Verified 11/12/19 14:28) Unknown Sulfa (Sulfonamide Antibiotics) Allergy (Verified 11/12/19 14:28) Swelling tolmetin sodium [From Tolectin] Allergy (Verified 11/12/19 14:28) Hives tetracycline [Tetracycline] Adverse Reaction (Verified 11/12/19 14:28) Other Medications to take at Discharge Buspirone HCl 7.5 mg PO DAILY 01/01/14 Fexofenadine/Pseudoephedrine [Katherin-D 24 Hour Tablet] 1 ea PO DAILY 01/01/14 Multivitamins,Therapeutic [Multivitamin] 1 tab PO DAILY 01/01/14 Testosterone [Testim] 6 gm TD DAILY 01/01/14 Prasterone (Dhea) [Dhea 25] 25 mg PO DAILY 03/31/18 Omeprazole 40 mg PO PRN PRN 10/17/18 cyclobenzaprine 10 mg tablet 10 mg PO TID PRN #21 tab 10/22/19 Apixaban [Eliquis] 2.5 mg PO BID #28 tab 01/25/20 Oxycodone [Oxyir] 5 - 10 mg PO Q4H PRN PRN #60 tablet 01/25/20 The following prescriptions were given: Apixaban [Eliquis] 2.5 mg PO BID #28 tab Transmission Status: Pending to [facility] Oxycodone [Oxyir] 5 - 10 mg PO Q4H PRN PRN #60 tablet PRN Reason: Pain Score 4-10 Transmission Status: Sent to [facility] Primary Care Physician: Darrian Ibrara DO [Primary Care Provider] - Test Results: Test results from this visit will be discussed in further detail at your follow-up appointment, if applicable. Please Follow Up With: Reginaldo Blank DO When: 2 weeks
--- NOTE | 2020-01-25 07:14 | PN.ORTHO_ITS ---
Subjective: Patient seen and examined doing well was able to ambulate with PT successfully pain controlled able to sleep last night some no complaints ready for discharge Drain was accidentally pulled out by patient during a transfer - Physical Exam Vitals/I&O's: Vital Signs Temp Pulse Resp BP Pulse Ox 98.0 F 73 16 102/55 L 98 01/25/20 03:38 01/25/20 03:38 01/25/20 03:38 01/25/20 03:38 01/25/20 03:38 Oxygen Flow Rate (L/min) 6 Oxygen Delivery Method Room Air Weight: 182 lb 1.629 oz Body Mass Index (BMI) 25.7 Intake and Output for Last 24 Hours 01/23/20 01/24/20 01/25/20 23:59 23:59 23:59 Intake Total 2935.00 / 2935.00 Output Total 866 / 1466 900 / 900 Balance 2069.00 / 1469.00 -900 / -900 General: Alert, Oriented x3, Cooperative, No apparent distress Extremities: - - Mepilex Ag dressing seal broke from where a drain sponge was attached. Compartment soft neurovascular intact Microbiology Past 72 Hours 01/24/20 07:55 Other - Other Gram Stain - Final 01/23/20 09:05 Interface Orders SARS-CoV-2 Antigen (Rapid) - Final Current Medications Acetaminophen (Acetaminophen 500 Mg Tablet) 1,000 mg PO Q8 [facility] Last Admin: 01/25/20 06:03 Dose: 1,000 mg Documented by: Apixaban (Apixaban 2.5 Mg Tablet) 2.5 mg PO BID [facility] Last Admin: 01/25/20 06:03 Dose: 2.5 mg Documented by: Hydromorphone HCl (Hydromorphone 0.5 Mg/0.5 Ml Syringe) 0.5 mg IV Q2H PRN PRN PRN Reason: Pain Score 6-10 Ondansetron HCl (Ondansetron 4 Mg/2 Ml Vial) 4 mg IV Q6H PRN PRN PRN Reason: NAUSEA Oxycodone HCl (Oxycodone 5 Mg Tablet) 5 - 10 mg PO Q4H PRN PRN PRN Reason: Pain Score 4-10 Last Admin: 01/25/20 06:03 Dose: 10 mg Documented by: Senna/Docusate Sodium (Senna/Docusate Sodium 1 Tablet) 2 tablet PO BID [facility] Last Admin: 01/24/20 21:30 Dose: 2 tablet Documented by: Sodium Chloride (0.9% Saline Lock 10 Ml Syringe) 10 - 40 ml IV UD PRN PRN Reason: SALINE FLUSH Medical Necessity - Tobacco Use Smoking Status: Never smoker Assessment/Plan All Active Problems (Last Reviewed 07/13/19 @ 08:48 by Laquita Levin) Neutropenia (Resolved) Osteoarthritis, multiple sites (Acute) Leukopenia (Resolved) Gammopathy (Resolved) Postop day #1 right knee status post irrigation debridement polyethylene exchange and a radical synovectomy Patient doing well will be discharged home after PT dressing to be changed with new Mepilex dressing with good seal thigh-high MOUSTAPHA hose and an Jeff wrap over top of the knee patient will use his ice machine at home he is already set up for outpatient physical therapy he will follow-up in 2 weeks in the office. Prescription medication sent to [facility] [place] pharmacy
[2020-01-25 07:40] VITALS: BP 110/64; PULSE 70; RESP 18; TEMP 36.7; O2SAT 98
[2020-01-25 08:05] VITALS: O2SAT 98
[2020-01-25 08:12] LABS: Hematocrit 32.4 % (40-54); Hemoglobin 10.7 g/dL (13.0-16.5); Mean Corpuscular Hgb 29.9 pg (27.0-32.0); Mean Corpuscular Volume 90.5 fL (80-94); Mean Platelet Vol. 9.4 fl (6.2-12.0); Platelet Count 167 K/mm3 (150-450); RBC Distribution Width CV 14.1 % (11.6-14.6); RBC Distribution Width SD 46.6 fl (35.1-43.9); Red Blood Count 3.58 M/mm3 (4.6-6.2); White Blood Count 6.6 K/mm3 (4.4-11.0)
[2020-01-25 08:29] LABS: Anion Gap 3 (5-15); BUN 17 mg/dL (7-18); BUN/Creat Ratio 15.7 RATIO (10-20); Calcium,Total 8.1 mg/dL (8.5-10.1); Chloride 109 mmol/L (98-107); Creatinine, Serum 1.08 mg/dL (0.70-1.30); EST Glomerular Filtration Rate 73 mL/min (>60); Est Glom Filt Rate - Afr Amer 88 mL/min (>60); Estimated Creatinine Clearance 70.41 ml/min; Glucose 90 mg/dL (74-106); Potassium 3.6 mmol/L (3.5-5.1); Sodium Level 143 mmol/L (136-145)
[2020-01-25 10:08] VITALS: BP 118/71; PULSE 78; RESP 18; TEMP 36.9; O2SAT 100
[2020-01-25] MEDS: HYDROmorphone 0.5 MG/0.5 ML SYRINGE IV (10:21)
[2020-01-25] MEDS: Senna/Docusate Sodium 1 Tablet 2 TABLET PO (10:22)
--- NOTE | 2020-01-25 10:30 | CASEMGMT ---
ROXY LOYOLA Face to Face with patient for initial transition planning/care coordination assessment. RN CM introduced self and role at [facility]. Patient lying in bed, alert and oriented. Patient willing to participate in assessment and is able to answer all questions appropriately. Care providers, pharmacy, and demographics verified. Patient wishes to discharge home and is setup with [facility] for outpatient therapy. Patient states he has no further needs or concerns at this time. CM to follow for discharge planning needs that may arise. PCP: Fred Specialists: car Blank Pharmacy: [facility] Insurance: [employer] Prescription Benefit: yes Living Will/HPOA: none LNOK: Living Arrangements: Patient lives with in a single story home with 2 steps to enter the home. Patient states he was independent at home prior to surgery Transportation: DME/HHC: Patient states he has shower chair and walker at home. Patient is setup with [facility] for outpatient therapy starting at 2pm today. Disposition Plan: Patient to discharge home with outpatient therapy, family support, and follow-up plans in place. Kimber WAKEFIELD, RN, CM
== END 2020-01-25 11:15 | disposition home or self-care (01) | DRG 489 ==
LOC: ACINP 01-25 06:59 → MS3 01-25 06:59
PROVIDERS: Anesthesiology; Admitting Provider Orthopaedic Surgery; PCP Family Medicine; Referring Provider Orthopaedic Surgery; Visit Provider Orthopaedic Surgery
PROC: 0SBC0ZZ Excision of Right Knee Joint, Open Approach (ICD-10-PCS; CPT 27447; principal; 2020-01-24 06:50)
DX: M65.9 Synovitis and tenosynovitis, unspecified (principal); I10 Essential (primary) hypertension; K21.9 Gastro-esophageal reflux disease without esophagitis; J45.909 Unspecified asthma, uncomplicated; G47.30 Sleep apnea, unspecified; Z91.19 Patient's noncompliance with other medical treatment and regimen; Z96.651 Presence of right artificial knee joint
CPT/HCPCS: 36415; 73560; 80048; 82962; 83735; 85027; 85610; 85730; 86850; 86900; 86901; 87070; 87075; 87081; 87176; 87205; 87426; 88305; 97110; 97161; 97166; 97530; 99251; C1776; C9803; J7120; G0463; J0702; J2405; J3490

== ENCOUNTER 2020-02-18 10:00 | Outpatient (RCR) | payer MEDICARE, OTHER, SELFPAY ==
[2020-01-24 11:23] VITALS: BMI 25.7
--- NOTE | 2020-01-28 07:47 | HP.PTEVAL_ITS ---
Patient's Visit Information VAUGHN DINERO is a 64 year old M referred to Physical Therapy by Dr. Reginaldo Blank DO with a diagnosis of R TKA revision. Date of Evaluation: 01/28/20 Physical Therapist: Yury Contreras DPT, OCS, CSCS - Visit Plan Frequency: 3x /Week Duration: 4-6 Weeks Plan: 3x/week for 3-6 weeks for. 1. patellar mobs. 2. rollout and stretch quad/HS and ROM to knee. 3. Strength R knee/LE and gait progression. 4. Ice as needed - Subjective July 30 had TKA R, never felt right and kept hurting. Was going to do a revision last but parts were good when he got in last and so just did synovectomy. Was painful Thrusday night. Last couple night slightly better. Had not slept due to pain in about 3 months. Sleeps in recliner. HEP: QS, AP, HS. ROM was not great prior to this recent surgery. Pain over weekend was up to 7/10 last night, about 5/10 normal with meds of percoset 2 every 4 hours. Retired. Spends day helping friend shower, and bridwatching. stays busy around the house. Likes to walk for fitness and fun and dog and wants to get back to that. Steps currently but using L. Dresses, shower, bathroom all I right now. R shoe is difficult but he can do it, Poor flexion is the limitation. - Pain R knee Pain Intensity (Out of 10): 5 Pain Intensity Range: 5, 7 - Objective Walks back to PT with cane I, can go without cane I. Avoids R knee flexion at swing moderately. Steps utiizing L only, hurts to use R. trasnfers to table using UE to move R LE. Incision dressed properly and dry. No signs of excessive redness, heat or swelling. Patella stiff in inf/superior direction r vs L. Knee AROM R -3 degrees ext to 92 flexion with 98 passively limited by pain. 14 degree ext lag with one labored SLR. R knee 0-130. strefngth R hip 3+, L hip 4. knee r ext not tested, flexion 3, and L 4+. ankle MMT 5/5 B without pain. and good ROM at ankles. Slightly tight overall in gastroc and HS. - Balance Scores Functional Gait Assessment Score: 24 % Disability: 20.0000 - Goals Goal 1:: Sleep without waking due to pain Goal Time Frame: 2-4 Weeks Goal 2:: AROM R knee 0-120 without pain and 0 ext lag on SLR Goal Time Frame: 4-6 Weeks Goal 3:: Walk normal and steps reciprocal without rail Goal Time Frame: 4-6 Weeks Goal 4:: Pt score 55 on LEFS Goal Time Frame: 4-6 Weeks Goal 5:: Walking dogs without limits or pain. Goal Time Frame: 4-6 Weeks Goal 6:: Get in and out of bed without needing UE to move R LE Goal Time Frame: 2-4 Weeks - Rehabilitation Potential Physical Therapy Diagnosis: R knee synovecotmy Rehabilitation Potential: Fair - Anticipated Interventions Patient/Client Instruction: Educate patient on: Condition, Plan of Care For the Purpose of:: To decrease pain, To increase ROM, To improve muscle performance and motor function, To increase tolerance to activity/condition/position, To improve performance and independence with ADL's, To improve ability of physical actions for home/community/work/leisure Therapeutic Exercise to Include: Strength training, Flexibilty training, Gait and locomotor training, Passive ROM, Active ROM For the Purpose of:: To decrease pain, To increase ROM, To improve muscle performance and motor function, To increase tolerance to activity/condition/position, To improve ability of physical actions for home/community/work/leisure, To improve gait and locomotor functions Manual Therapy Techniques to Include: Scar massage, Mobilization, Soft tissue mobilization For the Purpose of:: To decrease pain, To increase ROM Cryotherapy (ice pack, ice massage): Yes For the Purpose of:: To decrease pain, To decrease swelling/inflammation Thank you for the opportunity to evaluate your patient. For Medicare and Medicare HMO plans, please review the plan of care and approve it. It will need to be FAXED BACK to us at [phone] for Medicare purposes. For Medicare only, by signing this I certify the plan of care. Please let me know if there are questions or concerns regarding this plan of care. Physician Signature: Date:
--- NOTE | 2020-02-18 10:37 | HP.PTREVAL ---
Dr. Reginaldo Blank, DO, It has been my pleasure to treat VAUGHN DINERO over the last 10 visits for R TKA revision. Please see the progress note below for an update on the physical therapy plan of care! Subjective: Pt reports that he is feeling really good. Sleep is still interrupted but outside of tht he is doing well. Objective/Function: Range of motion is progressing very well. Demonstrates 2-133 degrees today with overpressure into flexion. Plan Plan: continue manual, progress to strengthening, modalities as needed. Goals Goal 1:: Sleep without waking due to pain Goal Time Frame: 2-4 Weeks Goal Progress: Goal Met in chair Goal 2:: AROM R knee 0-120 without pain and 0 ext lag on SLR Goal Time Frame: 4-6 Weeks Goal Progress: Goal Met Goal 3:: Walk normal and steps reciprocal without rail Goal Time Frame: 4-6 Weeks Goal Progress: Goal Met Goal 4:: Pt score 55 on LEFS Goal Time Frame: 4-6 Weeks Goal Progress: Goal Met Goal 5:: Walking dogs without limits or pain. Goal Time Frame: 4-6 Weeks Goal Progress: Goal Met Goal 6:: Get in and out of bed without needing UE to move R LE Goal Time Frame: 2-4 Weeks Goal Progress: Goal Met Anticipated Interventions Patient/Client Instruction: Educate patient on: Condition, Plan of Care For the Purpose of:: To decrease pain, To increase ROM, To improve muscle performance and motor function, To increase tolerance to activity/condition/position, To improve performance and independence with ADL's, To improve ability of physical actions for home/community/work/leisure Therapeutic Exercise to Include: Strength training, Flexibilty training, Gait and locomotor training, Passive ROM, Active ROM For the Purpose of:: To decrease pain, To increase ROM, To improve muscle performance and motor function, To increase tolerance to activity/condition/position, To improve ability of physical actions for home/community/work/leisure, To improve gait and locomotor functions Manual Therapy Techniques to Include: Scar massage, Mobilization, Soft tissue mobilization For the Purpose of:: To decrease pain, To increase ROM Cryotherapy (ice pack, ice massage): Yes For the Purpose of:: To decrease pain, To decrease swelling/inflammation Please do not hesitate to contact me at [phone] by phone or if you have questions or concerns regarding this new plan of care! Sincerely, Yury Contreras, DPT, OCS, CSCS
--- NOTE | 2020-04-16 08:22 | HP.PTDCSUM ---
It has been my pleasure to treat VAUGHN DINERO referred by Dr. Reginaldo Blank DO, with the diagnosis of R TKA revision for a total of 10 visit(s). Discharge Date: 02/18/20 Please see the following information for a summary of their discharge status. Subjective: Sleeps in chair as it is hard to get comfortable in bed but sleeps well. Pain over weekend was not bad. Still takes pain pills sometimes in am. Up to 6/10 if he overdoes it. Otherwise not bad. Activities are normal, cannot sprint. Basic ADLs are fine. To doctor on 03/03 R knee Pain Intensity (Out of 10): 0 % Improvement: 90 Objective/Function: 0-130 AROM, quad still atrophy R vs but fucntional. steps reciprocal with no rail, waks normal. 4+/5 strength quad and HS testing. Overall doinging very well adn ready to be done with PT. Goal 1:: Sleep without waking due to pain Goal Progress: Goal Met in chair Goal 2:: AROM R knee 0-120 without pain and 0 ext lag on SLR Goal Progress: Goal Met Goal 3:: Walk normal and steps reciprocal without rail Goal Progress: Goal Met Goal 4:: Pt score 55 on LEFS Goal Progress: Goal Met Goal 5:: Walking dogs without limits or pain. Goal Progress: Goal Met Goal 6:: Get in and out of bed without needing UE to move R LE Goal Progress: Goal Met Plan: D/c Discharge Comments: Doing well and will f/u with doctor 03/03. To call if problems prior. If there are questions or concerns regarding this patient's physical therapy, please feel free to call me at [phone]. Thank you for the referral of this patient. Sincerely, Yury Contreras, DPT, OCS, CSCS
== END 2020-02-18 19:00 | disposition home or self-care (01) ==
LOC: PT 10:00
PROVIDERS: PCP Family Medicine; Referring Provider Orthopaedic Surgery; Visit Provider Orthopaedic Surgery
DX: Z47.1 Aftercare following joint replacement surgery (principal); Z96.651 Presence of right artificial knee joint
CPT/HCPCS: 97014; 97016; 97110; 97140; 97161; 97164; 97530; G0283

== ENCOUNTER → 2020-03-24 09:43 | Outpatient (CLI) | payer MEDICARE, OTHER, SELFPAY ==
[2020-03-24 12:40] LABS: Absolute Lymphocyte Count 1.34 X10^3/uL (0.83-4.51); Absolute Neutrophil Count 1.9 X10^3/uL (2.0-7.7); Basophil# 0.03 X10^3/uL; Basophil% 0.8 % (0-1); Eosinophil# 0.08 X10^3/uL; Eosinophils% 2.2 % (0-5); Hematocrit 38.7 % (40-54); Hemoglobin 12.5 g/dL (13.0-16.5); Lymphocyte # 1.34 X10^3/ul (4.0); Lymphocyte % 36.6 % (19-41); Mean Corp Hgb Conc 32.3 g/dL (32-36); Mean Corpuscular Hgb 28.3 pg (27.0-32.0); Mean Corpuscular Volume 87.6 fL (80-94); Mean Platelet Vol. 9.9 fl (6.2-12.0); Monocyte# 0.26 X10^3/uL; Monocyte% 7.1 % (0-10); NRBC Flagged by Analyzer 0 % (0-5); Neutrophil # 1.94 X10^3/uL (2.7-7.7); Platelet Count 199 K/mm3 (150-450); RBC Distribution Width CV 13.1 % (11.6-14.6); RBC Distribution Width SD 41.8 fl (35.1-43.9); Red Blood Count 4.42 M/mm3 (4.6-6.2); White Blood Count 3.7 K/mm3 (4.4-11.0)
[2020-03-27 09:36] LABS: Testosterone, Free 32.69 ng/dL (5.00-21.00)
[2020-03-27 13:26] LABS: Testosterone, % Free 3.03 % (1.50-4.20); Testosterone, Total 1079 ng/dL (264-916)
== END ==
PROVIDERS: PCP Family Medicine; Referring Provider Internal Medicine Endocrinology, Diabetes & Metabolism; Visit Provider Internal Medicine Endocrinology, Diabetes & Metabolism
DX: E29.1 Testicular hypofunction (principal)
CPT/HCPCS: 36415; 84402; 84403; 85025

== ENCOUNTER → 2020-03-25 09:14 | Outpatient (CLI) | payer MEDICARE, OTHER, SELFPAY ==
[2020-03-25 15:52] LABS: Absolute Lymphocyte Count 1.42 X10^3/uL (0.83-4.51); Absolute Neutrophil Count 1.7 X10^3/uL (2.0-7.7); Basophil# 0.02 X10^3/uL; Basophil% 0.6 % (0-1); Eosinophil# 0.13 X10^3/uL; Eosinophils% 3.7 % (0-5); Hematocrit 40.5 % (40-54); Hemoglobin 13.5 g/dL (13.0-16.5); Lymphocyte # 1.42 X10^3/ul (4.0); Lymphocyte % 39.9 % (19-41); Mean Corp Hgb Conc 33.3 g/dL (32-36); Mean Corpuscular Hgb 29.1 pg (27.0-32.0); Mean Corpuscular Volume 87.3 fL (80-94); Mean Platelet Vol. 10.3 fl (6.2-12.0); Monocyte# 0.27 X10^3/uL; Monocyte% 7.6 % (0-10); NRBC Flagged by Analyzer 0 % (0-5); Neutrophil # 1.72 X10^3/uL (2.7-7.7); Neutrophil % 48.2 % (47-70); Platelet Count 206 K/mm3 (150-450); RBC Distribution Width CV 12.9 % (11.6-14.6); RBC Distribution Width SD 41.1 fl (35.1-43.9); Red Blood Count 4.64 M/mm3 (4.6-6.2); White Blood Count 3.6 K/mm3 (4.4-11.0)
[2020-03-25 16:19] LABS: Vitamin B12 740 pg/mL (211-911)
[2020-03-25 17:06] LABS: Ferritin 34 ng/mL (26-388); Iron 79 ug/dL (65-175)
[2020-03-30 07:25] LABS: Testosterone, % Free 3.08 % (1.50-4.20); Testosterone, Total 620 ng/dL (264-916)
== END ==
PROVIDERS: PCP Family Medicine; Referring Provider Internal Medicine Endocrinology, Diabetes & Metabolism; Visit Provider Internal Medicine Endocrinology, Diabetes & Metabolism
DX: D50.9 Iron deficiency anemia, unspecified (principal); E29.1 Testicular hypofunction
CPT/HCPCS: 36415; 82607; 82728; 83540; 84402; 84403; 85025

== ENCOUNTER → 2020-03-27 15:03 | Outpatient (CLI) | payer MEDICARE, OTHER, SELFPAY ==
[2020-03-27 18:29] LABS: Absolute Lymphocyte Count 1.68 X10^3/uL (0.83-4.51); Absolute Neutrophil Count 2.2 X10^3/uL (2.0-7.7); Basophil# 0.03 X10^3/uL; Basophil% 0.7 % (0-1); Eosinophil# 0.15 X10^3/uL; Eosinophils% 3.4 % (0-5); Hematocrit 39.4 % (40-54); Hemoglobin 12.6 g/dL (13.0-16.5); Lymphocyte # 1.68 X10^3/ul (4.0); Lymphocyte % 37.8 % (19-41); Mean Corpuscular Hgb 28.1 pg (27.0-32.0); Mean Corpuscular Volume 87.9 fL (80-94); Mean Platelet Vol. 10.2 fl (6.2-12.0); Monocyte# 0.33 X10^3/uL; Monocyte% 7.4 % (0-10); NRBC Flagged by Analyzer 0 % (0-5); Neutrophil # 2.24 X10^3/uL (2.7-7.7); Neutrophil % 50.5 % (47-70); Platelet Count 209 K/mm3 (150-450); RBC Distribution Width CV 13.2 % (11.6-14.6); RBC Distribution Width SD 42.7 fl (35.1-43.9); Red Blood Count 4.48 M/mm3 (4.6-6.2); White Blood Count 4.4 K/mm3 (4.4-11.0)
[2020-03-27 18:46] LABS: T4 Free Direct 0.93 ng/dL (0.76-1.46); Thyroid Stim Hormone (TSH) 1.39 uIU/mL (0.358-3.74)
[2020-03-27 18:51] LABS: Vitamin D,25 Hydroxy 32.5 ng/mL
[2020-03-31 15:35] LABS: SJOGREN'S Anti-SS-A test < 0.2 AI (0.0-0.9); SJOGREN'S Anti-SS-B test < 0.2 AI (0.0-0.9)
[2020-03-31 16:06] LABS: ANTINUCLEAR ANTIBODIES DIRECT Negative (Negative)
[2020-04-01 10:13] LABS: Anti-Thyroglobulin AB < 1.0 IU/mL (0.0-0.9); Thyroglobulin, Serum Qt. 11.3 ng/mL (1.4-29.2); Thyroid Peroxidase AB < 9 IU/mL (0-34)
== END ==
PROVIDERS: PCP Family Medicine; Referring Provider Internal Medicine Endocrinology, Diabetes & Metabolism; Visit Provider Internal Medicine Endocrinology, Diabetes & Metabolism
DX: E29.1 Testicular hypofunction (principal); E04.0 Nontoxic diffuse goiter; E55.9 Vitamin D deficiency, unspecified; D64.9 Anemia, unspecified; R43.8 Other disturbances of smell and taste
CPT/HCPCS: 36415; 82306; 84432; 84439; 84443; 85025; 86038; 86235; 86376; 86800

== ENCOUNTER → 2020-04-04 16:38 | Outpatient (CLI) | payer MEDICARE, OTHER, SELFPAY ==
[2020-04-05 08:08] LABS: SARS-COV-2 TOTAL ABS Nonreactive (Nonreactive)
== END ==
PROVIDERS: PCP Family Medicine; Referring Provider Surgery; Visit Provider Surgery
DX: R43.9 Unspecified disturbances of smell and taste (principal)
CPT/HCPCS: 36415; 86769

== ENCOUNTER → 2020-04-10 14:15 | Outpatient (CLI) | payer MEDICARE, OTHER, SELFPAY ==
[2020-04-10 18:00] LABS: Creatinine, Serum 1.16 mg/dL (0.70-1.30); EST Glomerular Filtration Rate 67 mL/min (>60); Est Glom Filt Rate - Afr Amer 81 mL/min (>60)
== END ==
PROVIDERS: PCP Family Medicine; Referring Provider Otolaryngology; Visit Provider Otolaryngology
DX: R43.0 Anosmia (principal)
CPT/HCPCS: 36415; 82565

== ENCOUNTER → 2020-04-18 15:23 | Outpatient (CLI) | payer MEDICARE, OTHER, SELFPAY ==
--- NOTE | 2020-04-18 16:00 | MRI_ITS ---
STUDY: MRI BRAIN WITH AND WITHOUT CONTRAST REASON FOR EXAM: Male, 64 years old. loss of TASTE AND smell SINCE 12/2019, NO H/O COVID TECHNIQUE: Standardized multiplanar fat and water weighted pulse sequences were obtained. IV 16cc dotarem was administered for the contrast portion of the examination. COMPARISON: 26 Jul 2011 FINDINGS: Normal size of the ventricles and extra-axial spaces for the patient''s age. Normal white matter tracts of the supratentorial brain. Normal bilateral basal ganglia. Normal thalami. There is no extra-axial fluid accumulation. Normal flow voids within the major intracranial circulation suggesting patency by spin echo criteria. Normal venous enhancement. There is no enhancing intra-axial or extra-axial abnormality. Normal sella turcica, pituitary gland, infundibular stalk, optic chiasm and hypothalamus. Normal tectal plate and pineal gland. Normal midbrain, lilliana and medulla. Normal cerebellum. Normal basal cisterns. Normal bilateral temporal bones. Normal bilateral internal auditory canals. No demonstrated orbital abnormality, within the constraints of a routine brain study. Normal visualized paranasal sinuses. Normal calvarium and skull base. Normal visualized soft tissue structures. Normal visualized upper cervical spine. Cribriform plate, fossa ethmoidalis, olfactory nerves, gyrus rectus and olfactory sulcus are normal. MRI/Brain W/WO Contrast IMPRESSION: Normal unenhanced and enhanced MRI of the brain. Normal olfactory region of the brain. Electronically Signed: Lam Santa MD at 19:00 EST Tel , Service support ,
== END ==
PROVIDERS: PCP Family Medicine; Visit Provider Otolaryngology
DX: R43.0 Anosmia (principal)
CPT/HCPCS: 70553; A9575

== ENCOUNTER 2020-05-16 09:01 | Emergency (ER) | payer MEDICARE, OTHER, SELFPAY ==
[2020-05-16 09:04] VITALS: BP 153/85; PULSE 72; RESP 16; TEMP 36.2; O2SAT 98; BMI 25.5
--- NOTE | 2020-05-16 09:18 | RAD_ITS ---
STUDY: X-RAY CHEST REASON FOR EXAM: Male, 65 years old. Chest pain TECHNIQUE: Single AP portable view of the chest. COMPARISON: Comparison is made with prior examination dated 04/01/2017. FINDINGS: Hyperinflation. The lungs are clear. Stable calcified granuloma in the lateral aspect of the left upper lobe. There is no demonstrated pleural abnormality. Normal size heart. Normal mediastinum and callie. Normal visualized pulmonary arteries. Normal visualized aortic arch and descending thoracic aorta. Normal visualized thoracic spine. The patient is status post left reverse shoulder replacement. Prior surgical fusion of the lower cervical spine. There is no demonstrated abnormality of the visualized soft tissue structures of the upper abdomen. RAD/Chest 1 View (Portable) IMPRESSION: Hyperinflation. No acute abnormality is seen. Electronically Signed: Ronny Copeland MD at 10:01 EST , Service support ,
--- NOTE | 2020-05-16 09:18 | EKG12_ITS ---
Test Reason : CP Blood Pressure : / mmHG Vent. Rate : 067 BPM Atrial Rate : 067 BPM P-R Int : 140 ms QRS Dur : 094 ms QT Int : 362 ms P-R-T Axes : 064 046 058 degrees QTc Int : 382 ms Normal sinus rhythm Low voltage QRS (Limb Leads) Confirmed by ANISA CLIFTON, JOHN ([id number]), editor dictionary CHARLOTTE MORIN ([id number]) on 05/20/2020 12:28:22 PM Referred By: LUCIA Confirmed By:JOHN LANGE MD
--- NOTE | 2020-05-16 09:23 | ED.VISSUMM ---
- ER Visit Summary Date of Service: 05/16/20 Chief Complaint: Chest pain History of Present Illness: The patient is a 65 M who presents with chest pain that began this morning. Patient states he got up and was drinking tea when he noted some pressure in his chest. Patient states it has been constant. Patient states it began approximately 5 hours prior to arrival. Patient states it is over the lower substernal area. Patient states nothing makes it better and nothing makes it worse. Patient admits to slight shortness of breath and slight diaphoresis with the pain. Patient denies any nausea or vomiting. Patient denies any cough or fever. Patient denies any lightheadedness or palpitations. Patient admits to a history of hypercholesterolemia. Patient denies any other cardiac or PE risk factors. Physical Examination: Vital signs are stable. Patient is afebrile. Patient is in no acute distress. Oral mucosa is pink and moist. Neck is supple. Trachea is midline. There is no JVD noted. Heart was regular rate and rhythm. Lungs are clear and equal bilaterally. Abdomen is soft. Bowel sounds are normal. There is no tenderness. There is no rebound or guarding noted. Skin is warm dry. Cranial nerves II through XII are intact. There are no focal motor or sensory deficits noted. Extremities are intact. There is no calf tenderness or edema. Test Results: EKG was obtained. On my interpretation, there is a normal sinus rhythm with a rate of 67. CA interval, QRS interval, and QT interval are normal. [place] is normal. There are no acute ST or T wave changes noted. This is unchanged compared to previous EKG dated 12/16/2004. CBC shows white blood cell count of 3.2. Basic metabolic profile is within normal limits. Troponin is normal. Portable 1 view chest x-ray was obtained. On my interpretation, lung mckeon are clear. There is normal cardiac silhouette. Bony thorax is normal. There is no acute process noted. Radiologist also interpreted the x-ray and agrees. Emergency Department Course and Treatment: Patient was given aspirin here. Patient states his pain has resolved while here in the emergency department prior to receiving any nitroglycerin. Patient states he feels back to his normal self. I recommended obtaining a delta troponin. This was ordered. Patient is agreeable with this. Delta troponin was normal. Patient is still asymptomatic. Patient wants to go home. Patient was instructed to follow-up with his primary care physician in 3 to 5 days. Patient states he has an appointment in 5 days. Patient was advised he may need further evaluation as an outpatient. Patient understood and was agreeable with the plan. All questions were answered. Disposition: Discharge home Impression: 1. Chest pain of uncertain etiology This note was generated with [employer] dictation software. It may contain incorrect words, spelling, and punctuation that were not noted in review of the chart prior to signing ED Disposition - Plan for ED Patient: Diagnosis: Chest pain of uncertain etiology Instructions: ED Chest Pain, Uncertain Cause Referrals: Darrian Ibarra DO [Primary Care Provider] - Keep Carlotta appointment
[2020-05-16 09:40] LABS: Absolute Lymphocyte Count 0.97 X10^3/uL (0.83-4.51); Absolute Neutrophil Count 1.8 X10^3/uL (2.0-7.7); Basophil# 0.02 X10^3/uL; Basophil% 0.6 % (0-1); Eosinophil# 0.05 X10^3/uL; Eosinophils% 1.6 % (0-5); Hematocrit 39.1 % (40-54); Hemoglobin 13.9 g/dL (13.0-16.5); Lymphocyte # 0.97 X10^3/ul (4.0); Lymphocyte % 30.2 % (19-41); Mean Corp Hgb Conc 35.5 g/dL (32-36); Mean Corpuscular Hgb 31.2 pg (27.0-32.0); Mean Corpuscular Volume 87.7 fL (80-94); Mean Platelet Vol. 9.2 fl (6.2-12.0); Monocyte# 0.37 X10^3/uL; Monocyte% 11.5 % (0-10); NRBC Flagged by Analyzer 0 % (0-5); Neutrophil % 56.1 % (47-70); Platelet Count 167 K/mm3 (150-450); RBC Distribution Width CV 15.7 % (11.6-14.6); RBC Distribution Width SD 45.7 fl (35.1-43.9); Red Blood Count 4.46 M/mm3 (4.6-6.2); White Blood Count 3.2 K/mm3 (4.4-11.0)
[2020-05-16 09:56] LABS: Anion Gap 5 (5-15); BUN 16 mg/dL (7-18); BUN/Creat Ratio 13.2 RATIO (10-20); Calcium,Total 9.1 mg/dL (8.5-10.1); Chloride 106 mmol/L (98-107); Creatinine, Serum 1.21 mg/dL (0.70-1.30); EST Glomerular Filtration Rate 64 mL/min (>60); Est Glom Filt Rate - Afr Amer 77 mL/min (>60); Estimated Creatinine Clearance 62.01 ml/min; Glucose 108 mg/dL (74-106); Potassium 3.9 mmol/L (3.5-5.1); Sodium Level 140 mmol/L (136-145)
[2020-05-16 10:11] VITALS: BP 141/73; PULSE 62; RESP 16; O2SAT 98
[2020-05-16] MEDS: Aspirin 81 MG TAB.CHEW 324 MG PO (10:16)
[2020-05-16 13:00] VITALS: BP 133/80; PULSE 64; RESP 19; O2SAT 98
[2020-05-16 13:21] VITALS: BP 135/82; PULSE 60; RESP 18; O2SAT 98
== END 2020-05-16 13:22 | disposition home or self-care (01) ==
PROVIDERS: Emergency Provider Emergency Medicine; PCP Family Medicine
DX: R07.9 Chest pain, unspecified (principal); M19.90 Unspecified osteoarthritis, unspecified site
CPT/HCPCS: 36415; 71045; 80048; 84484; 85025; 93005; 99285; A4216

== ENCOUNTER → 2020-07-15 05:57 | Outpatient (CLI) | payer MEDICARE, OTHER, SELFPAY ==
[2020-07-15 07:19] LABS: Absolute Lymphocyte Count 1.23 X10^3/uL (0.83-4.51); Absolute Neutrophil Count 1.5 X10^3/uL (2.0-7.7); Basophil# 0.03 X10^3/uL; Basophil% 0.9 % (0-1); Eosinophil# 0.17 X10^3/uL; Eosinophils% 5.2 % (0-5); Hematocrit 39.9 % (40-54); Hemoglobin 13.1 g/dL (13.0-16.5); Lymphocyte # 1.23 X10^3/ul (0.83-4.51); Mean Corp Hgb Conc 32.8 g/dL (32-36); Mean Corpuscular Hgb 29.6 pg (27.0-32.0); Mean Corpuscular Volume 90.1 fL (80-94); Mean Platelet Vol. 9.6 fl (6.2-12.0); Monocyte# 0.27 X10^3/uL; Monocyte% 8.3 % (0-10); NRBC Flagged by Analyzer 0 % (0-5); Neutrophil # 1.53 X10^3/uL (2.7-7.7); Neutrophil % 47.3 % (47-70); Platelet Count 187 K/mm3 (150-450); RBC Distribution Width SD 46.8 fl (35.1-43.9); Red Blood Count 4.43 M/mm3 (4.6-6.2); White Blood Count 3.2 K/mm3 (4.4-11.0)
[2020-07-15 07:48] LABS: ALB/GLOB Ratio 1.5 RATIO (0.9-2.4); AST(SGOT) 22 U/L (15-37); Alanine Aminotransfer ALT/SGPT 23 U/L (16-61); Albumin, Serum 4.1 g/dL (3.2-5.0); Alkaline Phosphatase 66 U/L (45-117); Anion Gap 6 (5-15); BUN 13 mg/dL (7-18); BUN/Creat Ratio 11.7 RATIO (10-20); Calcium,Total 8.8 mg/dL (8.5-10.1); Chloride 104 mmol/L (98-107); Cholesterol 206 mg/dL (200); Creatinine, Serum 1.11 mg/dL (0.70-1.30); EST Glomerular Filtration Rate 70 mL/min (>60); Est Glom Filt Rate - Afr Amer 85 mL/min (>60); Globulin 2.8 g/dL (2.2-4.2); Glucose 90 mg/dL (74-106); High Density Lipoprotein 66 mg/dL; Protein, Total 6.9 g/dL (6.4-8.2); Sodium Level 140 mmol/L (136-145); Thyroid Stim Hormone (TSH) 1.61 uIU/mL (0.358-3.74); Triglycerides 103 mg/dL; Very Low Density Lipoprotein 21 mg/dL (5-40)
[2020-07-15 11:59] LABS: Vitamin D,25 Hydroxy 47.3 ng/mL
[2020-07-20 03:06] LABS: Testosterone, Free 9.51 ng/dL (5.00-21.00)
[2020-07-20 09:45] LABS: Testosterone, % Free 2.33 % (1.50-4.20); Testosterone, Total 408 ng/dL (264-916)
== END ==
PROVIDERS: PCP Family Medicine; Referring Provider Internal Medicine Endocrinology, Diabetes & Metabolism; Visit Provider Internal Medicine Endocrinology, Diabetes & Metabolism
DX: E29.1 Testicular hypofunction (principal); E78.2 Mixed hyperlipidemia; E04.0 Nontoxic diffuse goiter; E55.9 Vitamin D deficiency, unspecified; D50.8 Other iron deficiency anemias
CPT/HCPCS: 36415; 80053; 80061; 82306; 84402; 84403; 84443; 85025

== ENCOUNTER → 2020-07-24 14:31 | Outpatient (CLI) | payer MEDICARE, OTHER, SELFPAY ==
[2020-07-24 18:18] LABS: Vitamin B12 427 pg/mL (211-911)
[2020-07-24 18:29] LABS: Ferritin 42 ng/mL (26-388); Iron 58 ug/dL (65-175)
== END ==
PROVIDERS: PCP Family Medicine; Referring Provider Internal Medicine Endocrinology, Diabetes & Metabolism; Visit Provider Internal Medicine Endocrinology, Diabetes & Metabolism
DX: E29.1 Testicular hypofunction (principal); E55.9 Vitamin D deficiency, unspecified; R53.83 Other fatigue; E53.8 Deficiency of other specified B group vitamins
CPT/HCPCS: 36415; 82306; 82607; 82728; 82746; 83540

== ENCOUNTER → 2020-07-29 | Outpatient (CLI) | payer MEDICARE, OTHER, SELFPAY ==
[2020-07-28 10:31] VITALS: BMI 24.5
== END | disposition home or self-care (01) ==
LOC: LAB 07:19 → LABSPEC 07:21
PROVIDERS: PCP Family Medicine; Referring Provider Internal Medicine Medical Oncology; Visit Provider Internal Medicine Medical Oncology
DX: E61.1 Iron deficiency (principal)
CPT/HCPCS: 82274

== ENCOUNTER 2020-11-09 02:21 | Inpatient (IN) | payer MEDICARE, OTHER, SELFPAY ==
[2020-11-09] VITALS (34 sets, daily range): BP systolic 91–145; BP diastolic 61–93; PULSE 50–82; RESP 12–21; TEMP 36.4–36.7; O2SAT 95–100; BMI 27.8; BMI 24.9
--- NOTE | 2020-11-09 02:24 | EKG12_ITS ---
Test Reason : STEMI Blood Pressure : / mmHG Vent. Rate : 051 BPM Atrial Rate : 051 BPM P-R Int : 138 ms QRS Dur : 104 ms QT Int : 412 ms P-R-T Axes : 063 019 036 degrees QTc Int : 379 ms Sinus bradycardia with Premature atrial complexes Anteroseptal infarct , acute Confirmed by ESTRADA CLIFTON, GEOVANY ([id number]), digital editor CHARLOTTE MORIN ([id number]) on 11/11/2020 8:31:31 AM Referred By: Elsy Malik Confirmed By:GEOVANY DORADO MD
--- NOTE | 2020-11-09 02:30 | ED.VIS.CHEST ---
HPI History of Present Illness Chief Complaint: Chest Pain Informant: patient and EMS Narrative Narrative: Patient is a 65-year-old male presenting with sudden onset of chest pain that woke him up from sleep. Woke him up at approximately 1 AM. He took omeprazole and not get better he called 911. Per EMS patient had what appeared to be a STEMI on his EKG. Stimulant was called in the field. Patient is complaining of crushing chest pain in the center of his chest. It does not radiate. He feels short of breath from it. He is sweating and cold. No other complaints at this time. He denies any history of heart attack. [facility] Medical History (Updated 11/09/20 @ 02:[address] 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 Home Medications multivitamin with folic acid 1 tab PO DAILY 01/01/14 [History Last Taken 03/19/16] testosterone 6 g TD DAILY 01/01/14 [History Last Taken Unknown] omeprazole 40 mg PO PRN PRN 10/17/18 [History Last Taken 07/31/19 03:45 40 MG] polysaccharide iron complex 150 mg iron capsule 150 mg PO BID #60 cap 07/28/20 [Rx Last Taken Unknown] methylphenidate HCl 20 mg tablet 20 mg PO BID 11/05/20 [History Last Taken Unknown] prasterone (dhea) 25 mg capsule 25 mg PO DAILY 11/05/20 [History Last Taken Unknown] oxycodone-acetaminophen 1 tab PO TID 11/09/20 [History Last Taken Unknown] Allergy/AdvReac Type Severity Reaction Status Date / Time ketorolac tromethamine Allergy Shortness Verified 11/09/20 02:26 [From Toradol] of breath pollen extracts Allergy Unknown Verified 11/09/20 02:26 Sulfa (Sulfonamide Allergy Swelling Verified 11/09/20 02:26 Antibiotics) tolmetin sodium Allergy Hives Verified 11/09/20 02:26 [From Tolectin] tetracycline [Tetracycline] AdvReac Other Verified 11/09/20 02:26 Family History Mother Lung cancer Father Cancer bladder Depression Emphysema lung Surgical History History of knee surgery s/p elbows s/p feet s/p forearms s/p hands S/P hernia repair s/p neck s/p shoulders Status post reverse total shoulder replacement Social History (Updated 11/09/20 @ 02:[address] Dorcas Valencia MD) household members: spouse Smoking Status: Never smoker alcohol intake: never substance use type: does not use ROS ROS ED Constitutional Constitutional ED: Reports sweats; Denies chills or fever(s) ENT ENT ED: Denies ear pain Cardiovascular Cardiovascular: Reports chest pain; Denies palpitations Respiratory/Chest Respiratory/Chest: Reports dyspnea; Denies cough Gastrointestinal Gastrointestinal: Reports nausea; Denies abdominal pain, diarrhea or vomiting Genitourinary Genitourinary ED: Denies dysuria or hematuria Musculoskeletal Musculoskeletal: Denies arthralgias or myalgias Integumentary Denies rash Neurologic Neurologic: Denies headache(s) or weakness Psychiatric Psychiatric: Denies depression EXAM Physical Exam Const Vital Signs: 11/09/20 02:22 11/09/20 02:27 11/09/20 02:29 Temperature 98 F Temperature Source Temporal Pulse Rate 53 L Respiratory Rate 16 15 Blood Pressure 131/77 H 92/61 Blood Pressure Mean 71 Pulse Ox 100 100 Oxygen Delivery Method Room Air Nasal Cannula Oxygen Flow Rate (L/min) 2 11/09/20 02:42 11/09/20 02:46 Temperature 98.1 F Temperature Source Temporal Pulse Rate 54 L 50 L Respiratory Rate 18 17 Blood Pressure 91/73 117/83 H Blood Pressure Mean 79 94 Pulse Ox 100 100 Oxygen Delivery Method Nasal Cannula Nasal Cannula Oxygen Flow Rate (L/min) 2 2 Positive well nourished and well developed General Appearance ED: well developed, ill appearing and diaphoretic HEENT Reports moist mucous membranes normocephalic and atraumatic Eyes PERRL Neck supple and no JVD Chest Wall inspection of chest normal Resp normal respiratory effort Effort and Inspection: respiratory distress Cardio regular rate and regular rhythm Peripheral Pulses: pulses 2+ throughout, radial pulses present and dorsalis pedis pulses present GI normal to inspection, nondistended, normoactive bowel sounds Extremity normal to inspection General Extremety ED: Negative for edema General Extremity: Negative for edema Neuro oriented x3 Sensorium / Orientation: awake and alert Motor Exam: Negative for general weakness Psych mental status grossly normal Skin no rashes or lesions noted Heart Score History: Highly Suspicious ECG: Significant ST-Depression Age: >/= 65 years Risk Factors: 1 or 2 Risk Factors Score: 7 MDM MDM MDM Narrative Medical decision making narrative: Patient is evaluated for sudden onset of chest pain that woke him from sleep. EKG consistent with acute anterior ST elevation [place]. STEMI alert is called in the field. On arrival patient is diaphoretic. He is clutching his chest and complained of pain. He is given fentanyl as he does have a soft blood pressure. Is also given Zofran. In addition he is given aspirin, heparin and Brilinta. Spoke with substance addiction coordinator, Dr. Malik. Patient is evaluated in the ER as well by hospitalist, Dr. Valencia. Patient will be transferred emergently to the [facility].Because of soft blood pressure patient is not given nitro in the ER. Patient has had significant improvement of his symptoms after receiving fentanyl, Zofran and the heparin. He continues to be bradycardic in the emergency room but blood pressure does improve. Lab Data Labs: Laboratory Results - last 24 hr 11/09/20 11/09/20 11/09/20 02:27 02:27 02:27 WBC 7.9 RBC 4.62 Hgb 13.8 Hct 40.9 MCV 88.5 MCH 29.9 MCHC 33.7 RDW Std Deviation 41.6 RDW Coeff of Ramesh 12.9 Plt Count 228 MPV 9.0 Immature Gran % (Auto) 0.300 Neut % (Auto) 38.2 L Lymph % (Auto) 49.2 H [place] % (Auto) 8.7 Eos % (Auto) 3.1 Baso % (Auto) 0.5 Absolute Neuts (auto) 3.0 Absolute Lymphs (auto) 3.91 Nucleated RBC % 0 PT 13.0 INR 1.0 APTT 23.9 L Sodium 141 Potassium 3.5 Chloride 106 Carbon Dioxide 28.0 Anion Gap 7 BUN 22 H Creatinine 1.15 Estim Creat Clear Calc 57.02 Est GFR (MDRD) Af Amer 82 Est GFR (MDRD) Non-Af 68 BUN/Creatinine Ratio 19.1 Glucose 115 H Calcium 9.2 Magnesium Troponin I High Sens 40 11/09/20 02:27 WBC RBC Hgb Hct MCV MCH MCHC RDW Std Deviation RDW Coeff of Ramesh Plt Count MPV Immature Gran % (Auto) Neut % (Auto) Lymph % (Auto) [place] % (Auto) Eos % (Auto) Baso % (Auto) Absolute Neuts (auto) Absolute Lymphs (auto) Nucleated RBC % PT INR APTT Sodium Potassium Chloride Carbon Dioxide Anion Gap BUN Creatinine Estim Creat Clear Calc Est GFR (MDRD) Af Amer Est GFR (MDRD) Non-Af BUN/Creatinine Ratio Glucose Calcium Magnesium 2.2 Troponin I High Sens Radiography Diagnostic Testing: Radiology Impression Chest X-Ray 11/09/20 02:43 IMPRESSION: No acute cardiopulmonary disease. Electronically Signed: Laquita Alfonso MD at 3:11 EDT , Service support , Rhythm Strip Rhythm Strip: Bradycardia Rate: 51 Ectopy: None EKG Initial EKG: Attestation: I personally reviewed and interpreted this EKG as follows: Interpretation: Sinus Bradycardia Comments: Sinus bradycardia at a rate of 51 Normal axis Normal intervals ST elevations in V2 through V6 with reciprocal depressions in 3 and aVF Critical Care Time Critical Care Time: Yes Critical care time (excluding procedures): 30-74 minutes (40 minutes-STEMI, bedside care, discussion with family and discussion with cardiology.), Discussing w/Patient &/or Family/Brick Dropper, Discussing w/Consultants, Arranging Admission or Transfer and Performing Direct Patient Care at Bedside Discharge Plan Dx/Rx/DC Orders Clinical Impression: ST elevation (STEMI) myocardial infarction, Bradycardia Disposition Disposition: Acute Care Hospital [facility] Discharge Date/Time: 11/09/20 03:15
[2020-11-09] MEDS: TICAGRELOR 90 MG TABLET 180 MG PO (02:33)
[2020-11-09] MEDS: Heparin Injection (Vial) 5,000 UNIT/ML VIAL 4000 UNIT IV (02:33)
[2020-11-09] MEDS: Aspirin 81 MG TAB.CHEW 324 MG PO (02:33)
[2020-11-09 02:35] LABS: Absolute Lymphocyte Count 3.91 X10^3/uL (0.83-4.51); Basophil# 0.04 X10^3/uL; Basophil% 0.5 % (0-1); Eosinophil# 0.25 X10^3/uL; Eosinophils% 3.1 % (0-5); Hematocrit 40.9 % (40-54); Hemoglobin 13.8 g/dL (13.0-16.5); Lymphocyte # 3.91 X10^3/ul (0.83-4.51); Lymphocyte % 49.2 % (19-41); Mean Corp Hgb Conc 33.7 g/dL (32-36); Mean Corpuscular Hgb 29.9 pg (27.0-32.0); Mean Corpuscular Volume 88.5 fL (80-94); Monocyte# 0.69 X10^3/uL; Monocyte% 8.7 % (0-10); NRBC Flagged by Analyzer 0 % (0-5); Neutrophil # 3.03 X10^3/uL (2.7-7.7); Neutrophil % 38.2 % (47-70); Platelet Count 228 K/mm3 (150-450); RBC Distribution Width CV 12.9 % (11.6-14.6); RBC Distribution Width SD 41.6 fl (35.1-43.9); Red Blood Count 4.62 M/mm3 (4.6-6.2); White Blood Count 7.9 K/mm3 (4.4-11.0)
--- NOTE | 2020-11-09 02:36 | HP.PCM.HOS_ITS ---
HPI - General General Date of Admission: 11/09/20 Date of Service: 11/09/20 Chief Complaint: Chest pain HPI Narrative The patient is a 65 y/o M w/ PMHx: ADHD, Former HTN off regimen following notable weight loss, GERD, OA, testosterone deficiency, chronic Anemia/Fe Deficiency, Unspecified Neutropenia following w/ Dr. Nava who presents to the [facility] ED on 11/09/20 with history of awakening to urinate at approximately 1 AM on day of ED presentation with noted mid sternal chest discomfort without radiation which progressively worsened upon his awakening described as pressure-like in sensation/tightness, equated it to an elephant sitting on his chest with dyspnea, nausea, diaphoresis, rated 10 out of 10 in severity which continued to progress prompting call for EMS. EMS transmitted STEMI alert to the hospital. Work-up in the ED included T 98, heart rate 53, BP 92/61, respiratory rate 15, 100% on room air, CBC with WC 7.9, hemoglobin 13.8, platelet 228 without marked shift, pending coags, pending BMP, pending high-sensitivity troponin, EKG with sinus bradycardia with ST elevations V2 through V6 with reciprocal depressions in 3 and aVF. ED physician did discuss case with on-call coating and baking operator for STEMI, Dr. Malik. Patient was administered aspirin, heparin bolus and Brilinta load. [facility] Medical History (Updated 11/09/20 @ 02:[address] 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 Home Medications multivitamin with folic acid 1 tab PO DAILY 01/01/14 [History Last Taken 03/19/16] testosterone 6 g TD DAILY 01/01/14 [History Last Taken Unknown] omeprazole 40 mg PO PRN PRN 10/17/18 [History Last Taken 07/31/19 03:45 40 MG] polysaccharide iron complex 150 mg iron capsule 150 mg PO BID #60 cap 07/28/20 [Rx Last Taken Unknown] methylphenidate HCl 20 mg tablet 20 mg PO BID 11/05/20 [History Last Taken Unknown] prasterone (dhea) 25 mg capsule 25 mg PO DAILY 11/05/20 [History Last Taken Unknown] oxycodone-acetaminophen 1 tab PO TID 11/09/20 [History Last Taken Unknown] Allergy/AdvReac Type Severity Reaction Status Date / Time ketorolac tromethamine Allergy Shortness Verified 11/09/20 02:26 [From Toradol] of breath pollen extracts Allergy Unknown Verified 11/09/20 02:26 Sulfa (Sulfonamide Allergy Swelling Verified 11/09/20 02:26 Antibiotics) tolmetin sodium Allergy Hives Verified 11/09/20 02:26 [From Tolectin] tetracycline [Tetracycline] AdvReac Other Verified 11/09/20 02:26 Family History Mother Lung cancer Father Cancer bladder Depression Emphysema lung Surgical History History of knee surgery s/p elbows s/p feet s/p forearms s/p hands S/P hernia repair s/p neck s/p shoulders Status post reverse total shoulder replacement Social History (Updated 11/09/20 @ 02:[address] Dorcas Valencia MD) household members: spouse Smoking Status: Never smoker alcohol intake: never substance use type: does not use ROS ROS Narrative Admission Review of Systems: CONSTITUTIONAL: No weight loss, fever, chills, + weakness or fatigue. HEENT: Eyes: No visual loss, blurred vision, double vision or yellow sclerae. Ears, Nose, Throat: No hearing loss, sneezing, congestion, runny nose or sore t hroat. SKIN: No rash or itching, lesions, wounds. CARDIOVASCULAR: + chest pain, chest pressure or chest discomfort, No palpitations, edema, orthopnea, syncopal events. RESPIRATORY: + shortness of breath, No cough or sputum, wheezing, hemoptysis. GASTROINTESTINAL: + anorexia, nausea, No vomiting or diarrhea, abdominal pain, melena, BRBPR. GENITOURINARY: No dysuria, frequency, urgency or retention. NEUROLOGICAL: No headache, dizziness, syncope, paralysis, ataxia, numbness or tingling in the extremities, focal weakness, change in bowel or bladder control, seizure. MUSCULOSKELETAL: No muscle, back pain, joint pain or stiffness. HEMATOLOGIC: + anemia, bleeding or bruising. LYMPHATICS: No enlarged nodes. No history of splenectomy. PSYCHIATRIC: No history of depression or anxiety. ENDOCRINOLOGIC: + reports of sweating, cold or heat intolerance. No polyuria or polydipsia. ALLERGIES: No history of asthma, hives, eczema or rhinitis. Vital Signs Vital Signs Vital Signs: 11/09/20 02:27 11/09/20 02:29 Temperature 98 F Temperature Source Temporal Pulse Rate 53 L Respiratory Rate 15 Blood Pressure 92/61 Blood Pressure Mean 71 Pulse Ox 100 100 Oxygen Delivery Method Room Air Nasal Cannula Oxygen Flow Rate (L/min) 2 Weight Weight: 172 lb 9.951 oz Body Mass Index (BMI) 27.8 Physical Exam Narrative Physical Examination: General: Awake, alert, oriented x 3 and cooperative, seated upright in the ED bed, ongoing chest discomfort, extremely diaphoretic and pale. Skin: Pale color, normal turgor, no icterus, no cyanosis. HEENT: AT/NC, EOMI, PERRLA, dry MM, no carotid bruits or JVD noted. Lungs: Diminished, > decrease BL bases, no rales, ronchi or wheezing. Heart: Bradycardic with regular rhythm; no gallop, rub audible. Abdomen: Soft, NTTP, ND, normal BS, no HSM. Extremities: No cyanosis, clubbing, or edema. Neurological: Patient awake, alert, oriented x as noted, cognitive function intact; pupils equally reactive to light and accommodation, cranial nerves II- XII grossly normal, moving all 4 extremities, no focal deficits, strength severely global decrease secondary to acute presentation. Psychiatric: Affect appears uncomfortable, ill-appearing, no acute evidence of depressive or anxiety feelings. Results Lab / Micro Data Result Diagrams: 11/09/20 02:27 11/09/20 02:27 Labs: Laboratory Results - last 24 hr 11/09/20 02:27: WBC 7.9, RBC 4.62, Hgb 13.8, Hct 40.9, MCV 88.5, MCH 29.9, MCHC 33.7, RDW Std Deviation 41.6, RDW Coeff of Ramesh 12.9, Plt Count 228, MPV 9.0, Immature Gran % (Auto) 0.300, Neut % (Auto) 38.2 L, Lymph % (Auto) 49.2 H, [place] % (Auto) 8.7, Eos % (Auto) 3.1, Baso % (Auto) 0.5, Absolute Neuts (auto) 3.0, Absolute Lymphs (auto) 3.91, Nucleated RBC % 0 Rhythm Strip Rhythm Strip: Bradycardia Rate: 51 Ectopy: None Assessment & Plan Assessment/Plan (1) ST elevation (STEMI) myocardial infarction: QUALIFIERS: Involved coronary artery: unspecified coronary artery Qualified Code(s): I21.3 - ST elevation (STEMI) myocardial infarction of unspecified site (2) Bradycardia: PLAN: The patient is a 65 y/o M w/ PMHx: ADHD, Former HTN off regimen following notable weight loss, GERD, OA, testosterone deficiency, chronic Anemia/Fe Deficiency, Unspecified Neutropenia following w/ Dr. Nava who presents to the [facility] ED on 11/09/20 with history of awakening to urinate at approximately 1 AM on day of ED presentation with noted mid sternal chest discomfort which progressively worsened upon his awakening described as pressure-like in sensation/tightness, equated it to an elephant sitting on his chest with dyspnea, nausea, diaphoresis, rated 10 out of 10 in severity which continued to progress prompting call for EMS. 1. Chest Pain w/ Acute STEMI: EKG in ED w/ ST elevation in the anterior leads, CXR pending upon evaluation, pending troponin upon evaluation. Patient ministered heparin bolus, Brilinta load and aspirin in the ED. Will transition from the ED to the cardiac catheterization lab and following this if appropriate to the ICU, maintain on a monitored bed, continue serial cardiac enzymes and EKGs. Obtain magnesium level upon admission. Continue medical management w/ asa, given bradycardia noted upon presentation will hold on beta-piper addition and defer to cardiology, defer addition AVA inhibitor/ARB to cardiology pre ference, add high-dose statin w/ AM FLP, echocardiogram requested, magnesium level pending. ASA, NG, morphine. 2. Bradycardia: Patient with bradycardia upon ED presentation, holding on immediate beta-piper addition, defer to cardiology, continued on telemetry monitoring. 3. Neutropenia, Unspecified: Following with Dr. Nava, status post 07/02/2014 bone marrow biopsy at that time with normocellular bone marrow, trilineage hematopoiesis with no significant pathological change and I fracture with no monoclonal gammopathy, continue outpatient follow-up with him and repeat bone marrow/biopsy if worsened noted per last oncology plan. Admission CBC with WBC 7.9, hemoglobin 13.8, platelet 228 without marked shift. 4. Chronic anemia/iron deficiency: Admission hemoglobin 13.8, stable, continue iron supplementation. 5. Testosterone deficiency: We will continue patient transdermal testosterone and DHEA regimen. 6. ADHD: We will continue patient home Ritalin regimen. 7. GERD: We will continue patient home PPI. 8. DVT prophylaxis: SCDs, Lovenox to be initiated in AM, status post heparin bolus in the ED given acute STEMI presentation as noted #1. Charges/Coding Visit Charges Inpatient E&M: 59982 Init Hosp L3
[2020-11-09] MEDS: fentaNYL 100 MCG/2 ML Ampul 50 MCG IV (02:37)
[2020-11-09] MEDS: 0.9% Normal Saline 1,000 ML 999 ML IV (02:39)
[2020-11-09] MEDS: Ondansetron 4 MG/2 ML Vial IV (02:39)
--- NOTE | 2020-11-09 02:43 | RAD_ITS ---
STUDY: X-RAY CHEST REASON FOR EXAM: Male, 65 years old. chest pain TECHNIQUE: Single AP portable view of the chest. COMPARISON: 05/16/2020. FINDINGS: There are symmetrical small bilateral basilar nodules most compatible with nipple shadows age measuring 8.7 mm. There is a small calcified granuloma within the left mid lung field measuring 7 mm this is stable since 04/01/2017. Remainder of the lungs are clear and expanded. There is no demonstrated pleural abnormality. Normal size heart. Normal mediastinum and callie. Normal visualized pulmonary arteries. Normal visualized aortic arch and descending thoracic aorta. There are diffuse degenerative changes of the visualized thoracic spine. Postoperative changes with left-sided humeral prosthesis in place. There is no demonstrated abnormality of the visualized soft tissue structures of the upper abdomen. RAD/Chest 1 View (Portable) IMPRESSION: No acute cardiopulmonary disease. Electronically Signed: Laquita Alfonso MD at 3:11 EDT , Service support ,
[2020-11-09 02:49] LABS: Partial Thromboplast Time 23.9 Seconds (24.1-36.2)
[2020-11-09 02:56] LABS: Anion Gap 7 (5-15); BUN 22 mg/dL (7-18); BUN/Creat Ratio 19.1 RATIO (10-20); Calcium,Total 9.2 mg/dL (8.5-10.1); Chloride 106 mmol/L (98-107); Creatinine, Serum 1.15 mg/dL (0.70-1.30); EST Glomerular Filtration Rate 68 mL/min (>60); Est Glom Filt Rate - Afr Amer 82 mL/min (>60); Estimated Creatinine Clearance 57.02 ml/min; Glucose 115 mg/dL (74-106); Potassium 3.5 mmol/L (3.5-5.1); Sodium Level 141 mmol/L (136-145); Troponin-I HS 40 pg/mL (3.0-78.0)
[2020-11-09 03:08] LABS: Magnesium 2.2 mg/dL (1.6-2.6)
--- NOTE | 2020-11-09 04:06 | CON.PCM.CA_ITS ---
Assessment & Plan Assessment/Plan (1) ST elevation (STEMI) myocardial infarction: QUALIFIERS: Involved coronary artery: unspecified coronary artery Qualified Code(s): I21.3 - ST elevation (STEMI) myocardial infarction of unspecified site PLAN: Patient had 95% stenosis in the mid LAD that was treated with drug- coated stent. He does have LV dysfunction. This is likely to improve as he presented early after symptoms. We have not started him on a beta-piper yet because of bradycardia on presentation. We will keep the patient on aspirin, Brilinta, lisinopril, statin. If his heart rate stabilizes and can tolerate a beta-piper we will start it later this admission. We will also get a 2D echo to evaluate his LV function. HPI Consult Data Date of Consult: 11/09/20 HPI Narrative Reason for Consultation: STEMI HPI Narrative: 65-year-old male presenting with chest pain. An EKG done on the way to the hospital revealed anterolateral ST elevation MO and a STEMI alert was called. Patient was evaluated prior to cardiac catheterization and then under went coronary angiography which revealed 95 to 99% stenosis in the mid LAD that was treated with drug-coated stent. Patient is doing well at the end of the procedure and will be admitted to the ICU for further management. Review of systems: All systems reviewed. All else is negative except that in [facility] Medical History (Updated 11/09/20 @ 02:[address] 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 Home Medications multivitamin with folic acid 1 tab PO DAILY 01/01/14 [History Last Taken 03/19/16] testosterone 6 g TD DAILY 01/01/14 [History Last Taken Unknown] omeprazole 40 mg PO PRN PRN 10/17/18 [History Last Taken 07/31/19 03:45 40 MG] polysaccharide iron complex 150 mg iron capsule 150 mg PO BID #60 cap 07/28/20 [Rx Last Taken Unknown] methylphenidate HCl 20 mg tablet 20 mg PO BID 11/05/20 [History Last Taken Unknown] prasterone (dhea) 25 mg capsule 25 mg PO DAILY 11/05/20 [History Last Taken Unknown] oxycodone-acetaminophen 1 tab PO TID 11/09/20 [History Last Taken Unknown] Allergy/AdvReac Type Severity Reaction Status Date / Time ketorolac tromethamine Allergy Shortness Verified 11/09/20 02:26 [From Toradol] of breath pollen extracts Allergy Unknown Verified 11/09/20 02:26 Sulfa (Sulfonamide Allergy Swelling Verified 11/09/20 02:26 Antibiotics) tolmetin sodium Allergy Hives Verified 11/09/20 02:26 [From Tolectin] tetracycline [Tetracycline] AdvReac Other Verified 11/09/20 02:26 Family History Mother Lung cancer Father Cancer bladder Depression Emphysema lung Surgical History History of knee surgery s/p elbows s/p feet s/p forearms s/p hands S/P hernia repair s/p neck s/p shoulders Status post reverse total shoulder replacement Social History (Updated 11/09/20 @ 02:[address] Dorcas Valencia MD) household members: spouse Smoking Status: Never smoker alcohol intake: never substance use type: does not use Physical Exam Const alert and oriented x3 Orientation / Consciousness: awake HEENT normocephalic Eyes no scleral icterus Chest inspection of chest normal Resp normal respiratory effort Cardio regular rate Skin no rashes or lesions noted Neuro oriented x3 Psych mental status grossly normal Charges/Coding Visit Charges Inpatient E&M: 08730 Init Hosp L3 Objective Data Vital Signs: Vital Signs Temp Pulse Resp BP Pulse Ox 98.1 F 50 L 17 131/77 H 100 11/09/20 02:42 11/09/20 02:46 11/09/20 02:46 11/09/20 03:02 11/09/20 02:46 Oxygen Flow Rate (L/min) 2 Oxygen Delivery Method Nasal Cannula Weight: 172 lb 9.951 oz Body Mass Index (BMI) 27.8 Lab / Micro Data Result Diagrams: 11/09/20 02:27 11/09/20 02:27 Labs: Laboratory Results - last 24 hr 11/09/20 02:27: WBC 7.9, RBC 4.62, Hgb 13.8, Hct 40.9, MCV 88.5, MCH 29.9, MCHC 33.7, RDW Std Deviation 41.6, RDW Coeff of Ramesh 12.9, Plt Count 228, MPV 9.0, Immature Gran % (Auto) 0.300, Neut % (Auto) 38.2 L, Lymph % (Auto) 49.2 H, [place] % (Auto) 8.7, Eos % (Auto) 3.1, Baso % (Auto) 0.5, Absolute Neuts (auto) 3.0, Absolute Lymphs (auto) 3.91, Nucleated RBC % 0 11/09/20 02:27: PT 13.0, INR 1.0, APTT 23.9 L 11/09/20 02:27: Sodium 141, Potassium 3.5, Chloride 106, Carbon Dioxide 28.0, Anion Gap 7, BUN 22 H, Creatinine 1.15, Estim Creat Clear Calc 57.02, Est GFR (MDRD) Af Amer 82, Est GFR (MDRD) Non-Af 68, BUN/Creatinine Ratio 19.1, Glucose 115 H, Calcium 9.2, Troponin I High Sens 40 11/09/20 02:27: Magnesium 2.2 Micro: Microbiology 11/09/20 02:56 Nasal Secretion SARS-CoV-2 Antigen (Rapid) - Final Rhythm Strip Rhythm Strip: Bradycardia Rate: 51 Ectopy: None Cardiology Labs/Tests 11/09/20 02:27: WBC 7.9, RBC 4.62, Hgb 13.8, Hct 40.9, MCV 88.5, MCH 29.9, MCHC 33.7, Plt Count 228, MPV 9.0, Immature Gran % (Auto) 0.300, Neut % (Auto) 38.2 L , Lymph % (Auto) 49.2 H, [place] % (Auto) 8.7, Eos % (Auto) 3.1, Baso % (Auto) 0.5, Absolute Neuts (auto) 3.0, Nucleated RBC % 0 11/09/20 02:27: PT 13.0, INR 1.0, APTT 23.9 L 11/09/20 02:27: Sodium 141, Potassium 3.5, Chloride 106, Carbon Dioxide 28.0, Anion Gap 7, BUN 22 H, Creatinine 1.15, Est GFR (MDRD) Af Amer 82, Est GFR (MDRD) Non-Af 68, BUN/Creatinine Ratio 19.1, Glucose 115 H, Calcium 9.2 11/09/20 02:27: Magnesium 2.2 Rhythm: EKG: ECHO: Stress Test: Cardiac Cath: PCI: CT Surgery: Holter monitor: EPS: PPM: CXR: Chest CT Scan: Radiography Diagnostic Testing: Radiology Impression Chest X-Ray 11/09/20 02:43 IMPRESSION: No acute cardiopulmonary disease. Electronically Signed: Laquita Alfonso MD at 3:11 EDT , Service support ,
--- NOTE | 2020-11-09 04:15 | EKG12_ITS ---
Test Reason : AM EKG Blood Pressure : / mmHG Vent. Rate : 071 BPM Atrial Rate : 071 BPM P-R Int : 136 ms QRS Dur : 086 ms QT Int : 384 ms P-R-T Axes : 074 051 072 degrees QTc Int : 417 ms Normal sinus rhythm T wave abnormality, consider anterior ischemia Abnormal ECG When compared with ECG of 09-NOV-2020 04:39, MANUAL COMPARISON REQUIRED, DATA IS UNCONFIRMED Confirmed by ESTRADA CLIFTON, GEOVANY ([id number]), field map editor CHARLOTTE MORIN ([id number]) on 11/11/2020 9:46:50 AM Referred By: Elsy Malik Confirmed By:GEOVANY DORADO MD
--- NOTE | 2020-11-09 04:18 | CL.I_ITS ---
Patient Name: VAUGHN DINERO Study Date: 11/09/2020 Performing: Damaso Malik MD Ht: 66.14 inches 168 cm : 1955 Wt: 171.96 lbs 78 kg Age: 65 Gender: male BSA: 1.88 PROCEDURE(S) PERFORMED SC26-IYS/COR/LV [id number], CHRISTAL AND/OR PTCA, ARTERY OR GRAFT, SINGLE VESSEL CLINICAL PROFILE AND CO-MORBIDITIES Indications: ACS <= 24 hrs Heart Failure: None Stress/Imaging Stress/Image Study Performed: No CAD Presentations: STEMI. Symptom onset Date/Time: 11/09/20 1:30:00 Time Estimated CONCLUSIONS CAD as described. LVEF is 35% with anterior and apical hypokinesis.No significant or MR. Successfu l PCI to mLAD with CHRISTAL RECOMMENDATIONS DESCRIPTION OF PROCEDURE The patient arrived to the procedure lab. The risks and benefits of the procedure as well as a full d escription of our services here and lack of surgical backup were fully explained to the patient and/o r their significant other prior to the catheterization. The Timeout was completed, verifying the deborah ect patient and procedure. The patient's procedural site was prepped and draped in the usual fashion. Local anesthetic was given subcutaneously to right radial region with Lidocaine 2%. Using a modified Seldinger technique, arterial access was obtained via the right radial artery, a 6Fr sheath was inse rted.. Left Coronary Artery selective angiography was performed in multiple views using a 6 Fr. XB 3 Guide Catheter. Left Ventriculography was performed in BOTELLO projection using a 5 Fr. Pigtail catheter . LV to AO pullback pressures were then recorded. Right Coronary Artery selective angiography was the n performed in multiple views using a 5 Fr. JR 4 catheter XB 3 Guide catheter was inserted and engaged into the LCA. [employer] [place] Guide wire was advanced to the LAD. Emerge 2.5 x 12 Balloon catheter was inserted. Balloon catheter was advanced across lesio n in the LAD, mid. PTCA balloon inflated at 10 atms for 12 secs. PTCA balloon inflated at 10 atms for 14 secs. Orsiro 3.0 x 26 Drug Eluting stent was inserted. Drug Eluting stent was advanced across the lesion in the LAD, mid. Angiogram performed post stent deployment. The arterial sheath was pulled and a TR Band was applied for hemostasis CORONARY ANGIOGRAPHY DOMINANCE: Left Dominant LEFT HEART ASSESSMENT Left Ventricular Ejection Fraction: by LV Gram 35 % Anterior and apical Hypokinesis - Severe LEFT MAIN: No significant disease noted LEFT ANTERIOR DESCENDING ARTERY: MID LAD: 95 % Stenosis CIRCUMFLEX ARTERY: No significant disease noted RIGHT CORONARY ARTERY: No significant disease noted VALVE FINDINGS: No Aortic Valve Stenosis No Mitral Insufficency INTERVENTION INFORMATION LESION SITE: LAD (Mid) Lesion Complexity: High/C, Lesion Complexity: High/C, chronic total occlusion: No, lesion at bifurcat ion: Yes, thrombus present: No, lesion length: 22 mm, culprit lesion: Yes, Previously treated lesion: No Pre Stenosis: 95 % Pre intervention DONNY flow: 3 PROCEDURE: Drug Eluting Stent with pre dilatation. Post Stenosis: 0 % Post intervention DONNY flow: 3 Lesion Devices: Cardinal 6 Fr XB3.0 100cm Guide Catheter Estrada .014 [employer] [place] Straight 190cm Ray Sci EMERGE MR 2.50x12 BALLOON Biotronik Orsiro MR CHRSITAL 3.0x26 COMPLICATIONS No Complications PROCEDURE MEDICATIONS Oxygen: 2 L/min via nasal cannula Heparin given IA 11/09/2020 03:25:29 Verapamil 2.5mg, Ntg 100mcgs, 3000 units of Heparin given IA 11/09/2020 03:25:29 SUMMARY OF HEMODYNAMIC DATA Time AIR REST ECG 03:15:06 AO 122/57 (89) SA 03:25:51 LV 128/9, 26 03:47:32 LV 139/5, 21 03:47:40 LV 147/2, 25 03:48:16 LV 134/-3, 25 03:48:22 LVp 131/2, 18 03:48:40 AOp 133/70 (99) 03:48:45 Signed By Damaso Malik MD On 11/09/2020 4:18:10 AM Damaso Malik MD
[2020-11-09] MEDS: 0.9% Normal Saline 1,000 ML 100 ML IV (04:31)
--- NOTE | 2020-11-09 04:31 | ECHOCS_ITS ---
Reason For Study: STEMI Procedure This was a 2D Doppler, Color Flow transthoracic echocardiogram. Due to STEMI, contrast injection was performed. Exam performed portable in ICU/CCU. Left Ventricle Normal LV size. The estimated ejection fraction is 40 %. There is evidence of diastolic dysfunction. hypokinesis of the apex and anterior wall. Right Ventricle Normal RV size. Normal systolic function. Atria Normal left atrium. Normal right atrium. No doppler evidence for ASD. Mitral Valve There is no mitral valve stenosis. No mitral valve insufficiency. Tricuspid Valve There is no tricuspid stenosis. Unable to estimate RV systolic pressure due to inadequate jet, pulmonary artery pressure probably normal. Aortic Valve There is no aortic stenosis. No aortic valve insufficiency. Pulmonic Valve There is no pulmonic valvular stenosis. No pulmonic valve insufficiency. Great Vessels Normal aortic root. Pericardium/Pleural No pericardial effusion. MMode/2D Measurements & Calculations LVIDd: 4.4 cm IVSd: 0.99 cm LAV(MOD-bp): 33.9 ml LVIDs: 3.7 cm LVPWd: 1.1 cm LAV(MOD-bp) Indexed: 18.0 ml/m2 FS: 14.7 % LAV(MOD-sp2): 35.6 ml LAV(MOD-sp4): 27.4 ml SV(MOD-sp4): 57.4 ml LVAd ap4: 35.0 cm2 LVAd ap2: 34.8 cm2 LVLd ap4: 8.9 cm LVLd ap2: 9.1 cm EDV(MOD-sp4): 112.9 ml EDV(MOD-sp2): 109.1 ml EDV(sp4-el): 116.8 ml EDV(sp2-el): 113.4 ml LVAs ap4: 22.9 cm2 LVAs ap2: 24.3 cm2 LVLs ap4: 7.6 cm LVLs ap2: 8.4 cm ESV(MOD-sp4): 55.5 ml ESV(MOD-sp2): 56.5 ml ESV(sp4-el): 58.7 ml ESV(sp2-el): 59.8 ml EF(MOD-sp4): 50.8 % EF(MOD-sp2): 48.2 % EF(sp4-el): 49.8 % SV(MOD-sp2): 52.6 ml SV(sp4-el): 58.1 ml LA A4 area: 11.6 cm2 LA dimension(2D): 3.8 cm RA A4 area: 9.7 cm2 Time Measurements MV dec time: 0.23 sec Doppler Measurements & Calculations MV E max jonny: 46.1 cm/sec Lat Peak E' Jonny: 5.9 cm/sec Med Peak E' Jonny: 5.2 cm/sec MV A max jonny: 88.0 cm/sec E/E' lat: 7.9 E/E' med: 8.9 MV E/A: 0.52 Ao V2 max: 100.3 cm/sec LV V1 max: 80.0 cm/sec PA V2 max: 88.4 cm/sec Ao max P.0 mmHg LV V1 max P.6 mmHg ECHO/Echo Complete W/ Contrast Interpretation Summary The estimated ejection fraction is 40 %. There is evidence of diastolic dysfunction. hypokinesis of the apex and anterior wall Ordering Physician: Dorcas Valencia Referring Physician: Darrian Ibarra Performed By: Jocelynn Brown RDCS, RVT
[2020-11-09 06:47] LABS: Absolute Lymphocyte Count 0.75 X10^3/uL (0.83-4.51); Basophil# 0.02 X10^3/uL; Basophil% 0.4 % (0-1); Eosinophil# 0.06 X10^3/uL; Eosinophils% 1.2 % (0-5); Hematocrit 38.4 % (40-54); Hemoglobin 12.9 g/dL (13.0-16.5); Lymphocyte # 0.75 X10^3/ul (0.83-4.51); Lymphocyte % 14.6 % (19-41); Mean Corp Hgb Conc 33.6 g/dL (32-36); Mean Corpuscular Hgb 29.7 pg (27.0-32.0); Mean Corpuscular Volume 88.5 fL (80-94); Mean Platelet Vol. 9.4 fl (6.2-12.0); Monocyte# 0.29 X10^3/uL; Monocyte% 5.7 % (0-10); NRBC Flagged by Analyzer 0 % (0-5); Neutrophil # 3.99 X10^3/uL (2.7-7.7); Neutrophil % 77.9 % (47-70); Platelet Count 185 K/mm3 (150-450); RBC Distribution Width CV 12.9 % (11.6-14.6); Red Blood Count 4.34 M/mm3 (4.6-6.2); White Blood Count 5.1 K/mm3 (4.4-11.0)
[2020-11-09 07:04] LABS: ALB/GLOB Ratio 1.2 RATIO (0.9-2.4); AST(SGOT) 28 U/L (15-37); Alanine Aminotransfer ALT/SGPT 28 U/L (16-61); Albumin, Serum 3.4 g/dL (3.2-5.0); Alkaline Phosphatase 62 U/L (45-117); Anion Gap 6 (5-15); BUN 23 mg/dL (7-18); BUN/Creat Ratio 25.2 RATIO (10-20); Calcium,Total 8.6 mg/dL (8.5-10.1); Chloride 109 mmol/L (98-107); Cholesterol 167 mg/dL (200); Creatinine, Serum 0.91 mg/dL (0.70-1.30); EST Glomerular Filtration Rate 88 mL/min (>60); Est Glom Filt Rate - Afr Amer 107 mL/min (>60); Estimated Creatinine Clearance 82.45 ml/min; Globulin 2.8 g/dL (2.2-4.2); Glucose 105 mg/dL (74-106); High Density Lipoprotein 57 mg/dL; Potassium 4.2 mmol/L (3.5-5.1); Protein, Total 6.2 g/dL (6.4-8.2); Sodium Level 141 mmol/L (136-145); Triglycerides 88 mg/dL; Very Low Density Lipoprotein 18 mg/dL (5-40)
[2020-11-09 08:24] LABS: Troponin-I HS 5662 pg/mL (3.0-78.0)
--- NOTE | 2020-11-09 09:59 | PN.HOSP_ITS ---
Subjective Subjective Patient seen and examined. He had no complaints. He was admitted in the early hours of this morning with a complaint of chest pain, and found to have stemi. He had emergent cardiac cath which showed 95% stenosis of the mid LAD which was treated with drug coated stent. He was admitted to the ICu afterwards. Patient has no complaints and feels well. Review of systems otherwise negative. He has remained hemodynamically stable. Objective Data Objective Data Vital Signs: Vital Signs Temp Pulse Resp BP Pulse Ox 97.5 F L 62 16 129/93 H 95 11/09/20 04:24 11/09/20 07:45 11/09/20 07:45 11/09/20 07:45 11/09/20 06:59 Oxygen Flow Rate (L/min) 2 Oxygen Delivery Method Room Air Weight: 173 lb 11.588 oz Body Mass Index (BMI) 24.9 Intake & Output: Intake and Output for Last 24 Hours 11/07/20 11/08/20 11/09/20 23:59 23:59 23:59 Intake Total 1000 / 1000 Output Total 500 / 500 Balance 500 / 500 Lab / Micro Data Result Diagrams: 11/09/20 06:40 11/09/20 06:40 Labs: Laboratory Results - last 24 hr 11/09/20 02:27: WBC 7.9, RBC 4.62, Hgb 13.8, Hct 40.9, MCV 88.5, MCH 29.9, MCHC 33.7, RDW Std Deviation 41.6, RDW Coeff of Ramesh 12.9, Plt Count 228, MPV 9.0, Immature Gran % (Auto) 0.300, Neut % (Auto) 38.2 L, Lymph % (Auto) 49.2 H, [place] % (Auto) 8.7, Eos % (Auto) 3.1, Baso % (Auto) 0.5, Absolute Neuts (auto) 3.0, Absolute Lymphs (auto) 3.91, Nucleated RBC % 0 11/09/20 02:27: PT 13.0, INR 1.0, APTT 23.9 L 11/09/20 02:27: Sodium 141, Potassium 3.5, Chloride 106, Carbon Dioxide 28.0, Anion Gap 7, BUN 22 H, Creatinine 1.15, Estim Creat Clear Calc 57.02, Est GFR (MDRD) Af Amer 82, Est GFR (MDRD) Non-Af 68, BUN/Creatinine Ratio 19.1, Glucose 115 H, Calcium 9.2, Troponin I High Sens 40 11/09/20 02:27: Magnesium 2.2 11/09/20 06:40: WBC 5.1, RBC 4.34 L, Hgb 12.9 L, Hct 38.4 L, MCV 88.5, MCH 29.7, MCHC 33.6, RDW Std Deviation 42.0, RDW Coeff of Ramesh 12.9, Plt Count 185, MPV 9.4, Immature Gran % (Auto) 0.200, Neut % (Auto) 77.9 H, Lymph % (Auto) 14.6 L, [place] % (Auto) 5.7, Eos % (Auto) 1.2, Baso % (Auto) 0.4, Absolute Neuts (auto) 4.0, Absolute Lymphs (auto) 0.75 L, Nucleated RBC % 0 11/09/20 06:40: Sodium 141, Potassium 4.2, Chloride 109 H, Carbon Dioxide 26.0, Anion Gap 6, BUN 23 H, Creatinine 0.91, Estim Creat Clear Calc 82.45, Est GFR (MDRD) Af Amer 107, Est GFR (MDRD) Non-Af 88, BUN/Creatinine Ratio 25.2 H, Glucose 105, Calcium 8.6, Total Bilirubin 0.30, AST 28, ALT 28, Alkaline Phosphatase 62, Total Protein 6.2 L, Albumin 3.4, Globulin 2.8, Albumin/Globulin Ratio 1.2, Triglycerides 88, Cholesterol 167, LDL Cholesterol 92, VLDL Cholesterol 18, HDL Cholesterol 57 11/09/20 07:55: Troponin I High Sens 5662 H* Micro: Microbiology 11/09/20 02:56 Nasal Secretion SARS-CoV-2 Antigen (Rapid) - Final Radiography Diagnostic Testing: Radiology Impression Chest X-Ray 11/09/20 02:43 IMPRESSION: No acute cardiopulmonary disease. Electronically Signed: Laquita Alfonso MD at 3:11 EDT , Service support , Rhythm Strip Rhythm Strip: Bradycardia Rate: 51 Ectopy: None Physical Exam Const alert, oriented x3 and no apparent distress Exam Limitations: no limitations HEENT head/scalp atraumatic and moist oral mucous membranes Head and Scalp: normocephalic Eyes PERRL, EOMs intact bilaterally and conjunctivae normal Neck no lymphadenopathy Resp normal respiratory effort, no retractions, no use of accessory muscles and clear to auscultation bilaterally Cardio regular rate, regular rhythm, S1 normal heart sound, S2 normal heart sound and no murmurs GI normal to inspection, nondistended, normoactive bowel sounds, soft to palpation, non-tender and non-distended Extremity normal to inspection, full ROM and no clubbing, cyanosis or edema Peripheral Pulses: Yes pulses 2+ throughout Skin no rashes or lesions noted Neuro oriented x3, CN's II-XII intact bilaterally and moves all extremities Sensorium / Orientation: awake and alert Motor Exam: strength 5/5 throughout Psych affect normal Assessment & Plan Assessment/Plan (1) ST elevation (STEMI) myocardial infarction: QUALIFIERS: Involved coronary artery: unspecified coronary artery Qualified Code(s): I21.3 - ST elevation (STEMI) myocardial infarction of unspecified site (2) Bradycardia: (3) Mechanical pain of left knee: PLAN: #STEMI s/p cardiac cath * had placement of drug eluting stent in the mid LAD where he had 95% stenosis * on aspirin, brilinta and lisinopril as well as high intensity statin * beta piper wasnt started o/a of bradycardia * 2D echo ordered * #Hypertension: on lisinopril #Bradycardia: HR was in the 50s on admission. Now 62. Will monitor. #History of chronic arthritis; * on percocet 7.5mg tidprn * says he hasnt received it since he came in, and wants it resumed because he doesnt want to go into withdrawal * #GERD: on PPI DVT prophylaxis: lovenox Charges/Coding Visit Charges Inpatient E&M: 81896 Subs Hosp L2
--- NOTE | 2020-11-09 10:00 | EKG12_ITS ---
Test Reason : POST CATH Blood Pressure : / mmHG Vent. Rate : 070 BPM Atrial Rate : 070 BPM P-R Int : 156 ms QRS Dur : 094 ms QT Int : 372 ms P-R-T Axes : 070 051 058 degrees QTc Int : 401 ms Normal sinus rhythm Normal ECG Confirmed by ANISA CLIFTON, JOHN ([id number]), editorial clerk CHARLOTTE MORIN ([id number]) on 11/12/2020 10:01:26 AM Referred By: Elsy Malik Confirmed By:JOHN LANGE MD
[2020-11-09] MEDS: Aspirin E.C. 81 MG Tablet PO (10:54)
[2020-11-09] MEDS: TICAGRELOR 90 MG TABLET PO ×2 (10:55→20:26)
[2020-11-09] MEDS: Iron Polysaccharide Complex 150 MG CAPSULE PO ×2 (10:55→20:27)
[2020-11-09] MEDS: Enoxaparin 40 MG/0.4 ML Syringe SC (10:55)
[2020-11-09] MEDS: Multivitamins,Therapeutic Tablet 1 TABLET PO (10:55)
[2020-11-09] MEDS: Lisinopril 2.5 MG Tablet PO (10:56)
[2020-11-09] MEDS: Methylphenidate HCl 5 MG Tablet 20 MG PO (11:00)
[2020-11-09] MEDS: oxyCODONE 5 MG Tablet PO ×2 (11:06→18:10)
[2020-11-09 16:28] LABS: Troponin-I HS 6746 pg/mL (3.0-78.0)
[2020-11-09] MEDS: Senna/Docusate Sodium 1 Tablet 2 TABLET PO (18:14)
[2020-11-09] MEDS: Atorvastatin Calcium 40 MG Tablet PO (20:28)
[2020-11-09] MEDS: Pantoprazole Sodium 40 MG Tablet PO (20:36)
[2020-11-09] MEDS: MELATONIN 3 MG TABLET PO (20:44)
[2020-11-10] VITALS (17 sets, daily range): BP systolic 121–145; BP diastolic 72–98; PULSE 55–93; RESP 12–20; TEMP 36.5–36.6; O2SAT 95–100
[2020-11-10] MEDS: oxyCODONE 5 MG Tablet PO ×2 (01:55→08:22)
[2020-11-10 06:06] LABS: Absolute Neutrophil Count 4.7 X10^3/uL (2.0-7.7); Basophil# 0.03 X10^3/uL; Basophil% 0.4 % (0-1); Eosinophil# 0.14 X10^3/uL; Eosinophils% 2.1 % (0-5); Hematocrit 41.7 % (40-54); Hemoglobin 14.2 g/dL (13.0-16.5); Lymphocyte % 19.2 % (19-41); Mean Corp Hgb Conc 34.1 g/dL (32-36); Mean Corpuscular Hgb 29.7 pg (27.0-32.0); Mean Corpuscular Volume 87.2 fL (80-94); Mean Platelet Vol. 9.3 fl (6.2-12.0); Monocyte# 0.53 X10^3/uL; Monocyte% 7.8 % (0-10); NRBC Flagged by Analyzer 0 % (0-5); Neutrophil # 4.74 X10^3/uL (2.7-7.7); Neutrophil % 70.2 % (47-70); Platelet Count 175 K/mm3 (150-450); RBC Distribution Width CV 13.1 % (11.6-14.6); RBC Distribution Width SD 41.6 fl (35.1-43.9); Red Blood Count 4.78 M/mm3 (4.6-6.2); White Blood Count 6.8 K/mm3 (4.4-11.0)
[2020-11-10 06:18] LABS: Anion Gap 7 (5-15); BUN 18 mg/dL (7-18); Calcium,Total 8.7 mg/dL (8.5-10.1); Chloride 107 mmol/L (98-107); Creatinine, Serum 0.94 mg/dL (0.70-1.30); EST Glomerular Filtration Rate 85 mL/min (>60); Est Glom Filt Rate - Afr Amer 103 mL/min (>60); Estimated Creatinine Clearance 79.82 ml/min; Glucose 124 mg/dL (74-106); Potassium 3.9 mmol/L (3.5-5.1); Sodium Level 139 mmol/L (136-145)
[2020-11-10] MEDS: TICAGRELOR 90 MG TABLET PO (08:14)
[2020-11-10] MEDS: Multivitamins,Therapeutic Tablet 1 TABLET PO (08:14)
[2020-11-10] MEDS: Aspirin E.C. 81 MG Tablet PO (08:14)
[2020-11-10] MEDS: Iron Polysaccharide Complex 150 MG CAPSULE PO (08:15)
[2020-11-10] MEDS: Enoxaparin 40 MG/0.4 ML Syringe SC (08:15)
[2020-11-10] MEDS: Lisinopril 2.5 MG Tablet PO (08:16)
[2020-11-10] MEDS: Methylphenidate HCl 5 MG Tablet 20 MG PO (08:22)
--- NOTE | 2020-11-10 08:45 | PN.CARD_ITS ---
Subjective Subjective Patient seen and evaluated. Appears to be doing quite well. No chest pain no shortness of breath Objective Data Vital Signs: Vital Signs Temp Pulse Resp BP Pulse Ox 97.7 F L 65 18 127/72 H 97 11/10/20 08:00 11/10/20 08:00 11/10/20 08:00 11/10/20 08:00 11/10/20 08:00 Oxygen Flow Rate (L/min) 2 Oxygen Delivery Method Room Air Weight: 173 lb 11.588 oz Body Mass Index (BMI) 24.9 Intake & Output: Intake and Output for Last 24 Hours 11/08/20 11/09/20 11/10/20 23:59 23:59 23:59 Intake Total 3020 / 3020 100 / 100 Output Total 2550 / 2550 150 / 150 Balance 470 / 470 -50 / -50 Lab / Micro Data Result Diagrams: 11/10/20 05:50 11/10/20 05:50 Labs: Laboratory Results - last 24 hr 11/09/20 15:45: Troponin I High Sens 6746 H* 11/10/20 05:50: WBC 6.8, RBC 4.78, Hgb 14.2, Hct 41.7, MCV 87.2, MCH 29.7, MCHC 34.1, RDW Std Deviation 41.6, RDW Coeff of Ramesh 13.1, Plt Count 175, MPV 9.3, Immature Gran % (Auto) 0.300, Neut % (Auto) 70.2 H, Lymph % (Auto) 19.2, [place] % (Auto) 7.8, Eos % (Auto) 2.1, Baso % (Auto) 0.4, Absolute Neuts (auto) 4.7, Absolute Lymphs (auto) 1.30, Nucleated RBC % 0 11/10/20 05:50: Sodium 139, Potassium 3.9, Chloride 107, Carbon Dioxide 25.0, Anion Gap 7, BUN 18, Creatinine 0.94, Estim Creat Clear Calc 79.82, Est GFR (MDRD) Af Amer 103, Est GFR (MDRD) Non-Af 85, BUN/Creatinine Ratio 19.0, Glucose 124 H, Calcium 8.7 Rhythm Strip Rhythm Strip: Bradycardia Rate: 51 Ectopy: None Cardiology Labs/Tests 11/10/20 05:50: WBC 6.8, RBC 4.78, Hgb 14.2, Hct 41.7, MCV 87.2, MCH 29.7, MCHC 34.1, Plt Count 175, MPV 9.3, Immature Gran % (Auto) 0.300, Neut % (Auto) 70.2 H , Lymph % (Auto) 19.2, [place] % (Auto) 7.8, Eos % (Auto) 2.1, Baso % (Auto) 0.4, Absolute Neuts (auto) 4.7, Nucleated RBC % 0 11/10/20 05:50: Sodium 139, Potassium 3.9, Chloride 107, Carbon Dioxide 25.0, Anion Gap 7, BUN 18, Creatinine 0.94, Est GFR (MDRD) Af Amer 103, Est GFR (MDRD) Non-Af 85, BUN/Creatinine Ratio 19.0, Glucose 124 H, Calcium 8.7 Rhythm: EKG: Normal sinus rhythm ECHO: Stress Test: Cardiac Cath: PCI: CT Surgery: Holter monitor: EPS: PPM: CXR: Chest CT Scan: Physical Exam Const oriented x3 HEENT head/scalp atraumatic Eyes EOMs intact bilaterally Neck full ROM Chest inspection of chest normal Resp clear to auscultation bilaterally Cardio regular rate, regular rhythm, S1 normal heart sound and S2 normal heart sound no CVA tenderness Extremity normal capillary refill Assessment & Plan Assessment/Plan (1) ST elevation (STEMI) myocardial infarction: QUALIFIERS: Involved coronary artery: unspecified coronary artery Qualified Code(s): I21.3 - ST elevation (STEMI) myocardial infarction of unspecified site PLAN: Patient is status post anterior myocardial infarction. He is doing well. Would recommend continuation with aspirin, Brilinta, lisinopril, and high intensity statin. We will also start low-dose beta-piper with Toprol-XL 25 mg a day Patient would be enrolled in cardiac rehabilitation He can be discharged for outpatient follow-up.
--- NOTE | 2020-11-10 09:08 | CRPHASE1_ITS ---
Patient Communication PHII Cardiac Rehab Discussed with Patient:: Yes Guide to Cardiac Rehab Given to Patient:: Yes Cardiac Rehab Facility Choice List Given to Patient:: Yes Choice Program [facility] CR PHII:: Communication Given to CR, Refer to [facility] Studio Coordinator:: Elsy Malik Phase II Cardiac Rehab:: Yes Sessions:: 36 sessions - 3 days/wk, 12 weeks Cardiac Rehabilitation Info Cardiac Rehabilitation Program Information: Cardiac Rehabilitation is important for patients like you who are recovering from a heart problem. Cardiac rehabilitation programs are recognized as integral to the continued care of the patient with coronary heart disease. The cardiac rehabilitation program is designed to optimize a patient's physical, psychological, and social functioning. Health career development engineer work in cardiac rehabilitation programs and assist you with getting the treatments you need to get stronger and healthier - like exercise, healthy eating habits, and medications. Cardiac rehabilitation has been show to help people with heart problems live longer and have better life enjoyment than people who do not go to cardiac rehabilitation. Please contact the Cardiac Rehabilitation Program at [facility] at in two weeks if you have not heard from them.
--- NOTE | 2020-11-10 09:10 | CRPH1.INSTRU ---
General Education CAD and cardiac anatomy and function:: Patient communicates acknowledgment Explanation of diagnoses and procedures:: Patient communicates acknowledgment Sign/Symptoms of CT:: Patient communicates acknowledgment Antiplatelet therapy: Patient communicates acknowledgment Proper use of NTG-SL: Patient communicates acknowledgment Emergency procedures and activation of EMS: Patient communicates acknowledgment Compliance of all prescribed medications: Patient communicates acknowledgment Smoking Patient Nicotine/Smoking Risk Factors Are:: Non-smoker Recommendations Include:: Previous smoker; encourage continued cessation Nicotine/Smoking Response Code:: Patient communicates acknowledgment Dyslipidemia Patient Dyslipidemia Risk Factors Are:: Total Cholesterol Recommendations Include:: Lipid profile provided Dyslipidemia Response Code:: Patient communicates acknowledgment Hypertension Recommendations Include:: Maintain BP <130/85, BP <130/80 if diabetic, DASH dietary guidelines, Decrease/maintain normal body weight, Moderation of ETOH Hypertension:: Patient communicates acknowledgment Stress Recommendations Include:: Identification of stressors, and assessment of coping skills, Stress management techniques Stress Response Code:: Patient communicates acknowledgment
[2020-11-10] MEDS: Metoprolol(XL)Succ 25 MG Tablet PO (10:06)
--- NOTE | 2020-11-10 10:20 | CASEMGMT ---
Addendum entered by Sveta Balderas 11/10/20 14:33: 1020: Pt screened with [facility] Palliative Care Screening Tool for strata 3, pt did not meet criteria.? Original Note: RN CM SHADING PAINTER CM to room to meet with patient for initial transition planning/care coordination assessment. RN CM introduced self and role at [facility]. Pt voices understanding and consents to assessment at this time. Pt sitting up in recliner chair in room, in no distress at this time. Pt is A/O at this time and answers all questions appropriately. Care providers, pharmacy, and demographics verified/updated at this time. PCP: Dr Ibarra Specialists: Dr Nava--hematology, Dr Blank--ortho, Dr Bonilla--endocrinology in [facility]: Yes, [place]. Pt will be discharged home on Brilinta. Brilinta savings card provided to pt and instructed on use. Pt made aware, if refills are not affordable, to notify Dr Garner, so other options can be discussed. Pt voices understanding. Living Will/HPOA: Pt does not currently have LW/HCPOA and declines info at this time. Pt made aware that he can contact as an out-pt and make appt in the future if he decides he would like to talk with someone about this or would like to utilize [facility] social work for advanced directive completion. Given [employer] card with information and contact number. Pt expresses understanding. LNOK: , Teodora Living Arrangements: Lives w/ in one-story home w/basement. No difficulty w/stairs. Independent. /pt share home tasks. Pt works out @ home 5 x's/week on [employer]. Transportation: Pt states drives self and states no transportation concerns at this time. also drives at times. DME: Denies using any DME and denies needs. He has a CPAP, but states has not used it for a long time, stating, I can't wear it. I couldn't get used to it. Pt states no need for further DME at this time. HHC/SNF: No history of either and no needs identified. Pt wishes to return home and states has no concerns with going home at time of discharge. CM to follow for any discharge planning/needs. Pt voices no concerns/needs at this time. Advised pt to ask for CM if any questions/concerns/needs arise. Voices understanding. PLAN: Home w/discharge plans in place. Zbigniew WAKEFIELD RN CM
--- NOTE | 2020-11-10 11:42 | PCM.DC.SUM ---
Providers Date of Admission: 11/09/20 Primary Care Physician: Dr. Darrian Ibarra, Consultations 11/09/20 04:31 Consult: Cardiology Routine Consulting Provider: Elsy Malik Reason for Consult: STEMI EMERGENT Consult: Yes MD Notified: Yes Date Notified: 11/09/20 Time Notified: 02:54 Method of Notification: called per ED Reason For Visit: stemi Diagnosis Discharge Diagnosis (1) ST elevation (STEMI) myocardial infarction: Status: Acute Code(s): I21.3 - ST elevation (STEMI) myocardial infarction of unspecified site Qualifiers: Involved coronary artery: unspecified coronary artery Qualified Code(s): I21.3 - ST elevation (STEMI) myocardial infarction of unspecified site Medications at Discharge Home Medications multivitamin with folic acid 1 tab PO DAILY 01/01/14 testosterone 6 g TD DAILY 01/01/14 omeprazole 40 mg PO PRN PRN 10/17/18 polysaccharide iron complex 150 mg iron capsule 150 mg PO BID #60 cap 07/28/20 methylphenidate HCl 20 mg tablet 20 mg PO BID 11/05/20 prasterone (dhea) 25 mg capsule 25 mg PO DAILY 11/05/20 oxycodone-acetaminophen 1 tab PO TID 11/09/20 aspirin 81 mg PO DAILY #30 cap 11/10/20 atorvastatin 40 mg PO QHS #30 tab 11/10/20 lisinopril 2.5 mg PO DAILY #30 tab 11/10/20 metoprolol succinate 25 mg PO DAILY #30 tab 11/10/20 ticagrelor [Brilinta] 90 mg PO BID #60 tab 11/10/20 Hospital Course Operations None Procedures 2-D Echocardiogram and Cardiac catheterization Summary of Care Provided Minutes Spent on Discharge: 40 Hospital Course: Patient is a 65-year-old male with a past medical history as outlined including ADHD and hypertension currently not on medication, testosterone deficiency and GERD as well as osteoarthritis and iron deficiency anemia with neutropenia. He was admitted through the ED on 11/09/2020 with a complaint of midsternal chest pain without radiation. Chest pain gradually worsened so he called the EMS. He had associated shortness of breath, nausea and increased sweating. EMS did an EKG which showed ST elevation ND. On admission, he was found to have ST elevation in V2 through to V6 and was also noted to be bradycardic. He was started on aspirin, loaded with Brilinta and given a heparin bolus. STEMI alert was called and he was sent emergently to the cardiac [facility] with findings of 95 stenosis in the mid LAD which was treated with a drug-eluting stent. He was subsequently admitted to the ICU. Patient remained stable after cardiac cath. He had 2D echo which showed EF of 40% with evidence of diastolic dysfunction and hypokinesis of the apex and anterior wall. Patient remained stable and was discharged home on 11/10/2020. He was discharged on aspirin and Brilinta as well as high intensity statin and metoprolol. He is to follow-up with his visiting teacher and primary care doctor and is also to follow-up with cardiac rehab. Patient seen and examined prior to discharge. He had no complaints and felt well. Review of systems otherwise negative. Labs and vitals reviewed. Medication reviewed and reconciled. Physical Exam Const alert, oriented x3 and no apparent distress General Appearance: cooperative and comfortable Exam Limitations: no limitations HEENT normocephalic, head/scalp atraumatic and moist oral mucous membranes Eyes PERRL, EOMs intact bilaterally and conjunctivae normal Neck no lymphadenopathy Resp normal respiratory effort, no retractions, no use of accessory muscles and clear to auscultation bilaterally Cardio regular rate, regular rhythm, S1 normal heart sound, S2 normal heart sound and no murmurs GI normal to inspection, nondistended, normoactive bowel sounds, soft to palpation, non-tender and non-distended Extremity normal to inspection, full ROM and no clubbing, cyanosis or edema Skin no rashes or lesions noted Neuro oriented x3, CN's II-XII intact bilaterally and moves all extremities Sensorium / Orientation: awake and alert Motor Exam: strength 5/5 throughout Psych affect normal Weight / BMI Weight Weight: 173 lb 11.588 oz Body Mass Index (BMI) 24.9 ABG / Lab / Microbiology Data Result Diagrams: 11/10/20 05:50 11/10/20 05:50 Laboratory: Laboratory Results - last 24 hr 11/09/20 15:45: Troponin I High Sens 6746 H* 11/10/20 05:50: WBC 6.8, RBC 4.78, Hgb 14.2, Hct 41.7, MCV 87.2, MCH 29.7, MCHC 34.1, RDW Std Deviation 41.6, RDW Coeff of Ramesh 13.1, Plt Count 175, MPV 9.3, Immature Gran % (Auto) 0.300, Neut % (Auto) 70.2 H, Lymph % (Auto) 19.2, [place] % (Auto) 7.8, Eos % (Auto) 2.1, Baso % (Auto) 0.4, Absolute Neuts (auto) 4.7, Absolute Lymphs (auto) 1.30, Nucleated RBC % 0 11/10/20 05:50: Sodium 139, Potassium 3.9, Chloride 107, Carbon Dioxide 25.0, Anion Gap 7, BUN 18, Creatinine 0.94, Estim Creat Clear Calc 79.82, Est GFR (MDRD) Af Amer 103, Est GFR (MDRD) Non-Af 85, BUN/Creatinine Ratio 19.0, Glucose 124 H, Calcium 8.7 Microbiology: Microbiology 11/09/20 02:56 Nasal Secretion SARS-CoV-2 Antigen (Rapid) - Final Radiography Diagnostic Testing: Radiology Impression Echocardiogram 11/09/20 04:31 Interpretation Summary The estimated ejection fraction is 40 %. There is evidence of diastolic dysfunction. hypokinesis of the apex and anterior wall Ordering Physician: Dorcas Valencia Referring Physician: Darrian Ibarra Performed By: Jocelynn Brown, MAGY, RVT D/C Instructions Discharge Diet: Low fat / Low cholesterol Discharge Activity: Return to Normal Activity Call your doctor if you observe: Fever of 101 or Higher, Shortness of breath, Dizziness, Swelling in the ankles, Chest pain and Increased palpitations (irregular heartbeat) Meaningful Use Info Meaningful Use Diagnoses (Choose all that apply): AMI AMI/Post PCI/Angioplasty Aspirin given w/in 24hrs of arrival?: Yes ASA at discharge?: Yes Antiplatelet Therapy at Discharge:: Yes Statins at discharge?: Yes Jeff/ARB at discharge?: Yes Beta Cornelio at discharge?: Yes Done w/ Acute ND measure.: Yes Documented LVEF (%): 40 Discharge Plan Admission Admit Date/Time: 11/09/20 02:55 Primary Reason for Your Visit: STEMI Attending Provider: Ct Araujo Primary Care Provider: Darrian Ibarra Consulting Providers: Elsy Malik Instructions Patient Instructions: Heart Attack Dc, Exercising After a Heart Attack, Heart Attack Meds Discharge Orders/Prescriptions Prescriptions: New aspirin 81 mg capsule 81 mg PO DAILY Qty: 30 RF: 1 Brilinta 90 mg tablet 90 mg PO BID Qty: 60 RF: 1 metoprolol succinate 25 mg tablet extended release 24 hr 25 mg PO DAILY Qty: 30 RF: 1 lisinopril 2.5 mg tablet 2.5 mg PO DAILY Qty: 30 RF: 1 atorvastatin 40 mg tablet 40 mg PO QHS Qty: 30 RF: 1 Continued polysaccharide iron complex [Ferrex 150] 150 mg iron capsule 150 mg PO BID Qty: 60 RF: 3 methylphenidate HCl [Ritalin] 20 mg tablet 20 mg PO BID RF: 0 testosterone 5 GM gel 6 g TD DAILY RF: 0 multivitamin with folic acid 1 TABLET tablet 1 tab PO DAILY RF: 0 prasterone (dhea) 25 mg capsule 25 mg PO DAILY RF: 0 omeprazole 40 MG capsule,delayed release(DR/EC) 40 mg PO PRN PRN (Reason: gerd) RF: 0 oxycodone-acetaminophen 7.5-325 mg tablet 1 tab PO TID RF: 0 Referrals / Follow Up: Ricardo Garner MD [STAFF PHYSICIAN] - Within 2 Weeks Darrian Ibarra DO [Primary Care Provider] - Within 2 Weeks Disposition Disposition (needs filled in before D/C Order can be placed): Home, Self Care Charges/Coding Visit Charges Inpatient E&M: 40936 Disch Hosp
--- NOTE | 2020-11-14 14:36 | CASEMGMT ---
ROXY LOYOLA Discharge Follow-up Phone Call: LUCIA: Goyo Strata: 3 Call Date: 11/14/20 Discharge Date: 11/10/20 Time of Call: 1435 Duration: 1 min Admitting Diagnosis: stemi RN MILLA attempted to complete follow-up phone call after recent hospitalization. No answer, voice message left with return contact information.
== END 2020-11-10 12:50 | disposition home or self-care (01) | DRG 247 ==
LOC: ED 02:33 → ICU 02:59
PROVIDERS: Family Medicine; Admitting Provider Specialist; Emergency Provider Emergency Medicine; PCP Family Medicine; Referring Provider Specialist; Visit Provider Student in an Organized Health Care Education/Training Program
DX: I21.09 ST elevation (STEMI) myocardial infarction involving other coronary artery of anterior wall (principal); I10 Essential (primary) hypertension; R00.1 Bradycardia, unspecified; M19.90 Unspecified osteoarthritis, unspecified site; K21.9 Gastro-esophageal reflux disease without esophagitis; Z79.891 Long term (current) use of opiate analgesic; Z79.899 Other long term (current) drug therapy; D70.9 Neutropenia, unspecified; D50.9 Iron deficiency anemia, unspecified; E29.1 Testicular hypofunction; F90.9 Attention-deficit hyperactivity disorder, unspecified type
CPT/HCPCS: 71045; 80048; 80053; 80061; 83735; 84484; 85025; 85027; 85610; 85730; 87426; 92941; 93005; 93306; 93458; 99251; 99285; C1874; J7030; Q9957; Q9967; A4216; C1725; C1769; C1887; C1894; C8929; C9606; G0463; J1327; J2405; J3490

== ENCOUNTER → 2020-11-20 06:00 | Outpatient (CLI) | payer MEDICARE, OTHER, SELFPAY ==
--- NOTE | 2020-11-20 06:04 | CR.HP_ITS ---
CR - History & Physical - General Arrival date:: 11/20/20 Arrival time:: 06:07 Date of Referral:: 11/10/20 Date of CR Evaluation:: 11/20/20 Referring Physician: Dr. Ricardo Garner Primary Diagnosis: AMI < 12 months, PCI w/coronary stenting - History of Present Cardiac Event Onset Date: Enter Onset Date of cardiac illnesses in Comment field below Acute Myocardial Infarction within 12 months:: Yes - STEMI 11/09/2020 PTCA or coronary stenting:: Yes - PCI prescence of coronary angioplasty and implant graft Type of Symptoms:: AbouT two days prior took an Aleve for ain, developed severe heartburn and thought it was more related to the Aleve even though he drank plenty of water. Awoke the next morning developed the saem was awakened from the sleep and then developed really severe pain and began sweating profusely and called the squad. - Sleep Disorder Evaluation Hx of Sleep Apnea: No Do you snore loudly (louder than talking or can be heard through closed doors)?: Yes Do you often feel tired/ fatigued/ sleepy during daytime?: No Has anyone observed you stop breathing during sleep?: Yes History of Hypertension (for STOP score): Yes - Has tried the mask in past and is unable to wear it, have waht they told him moderate NEGRO. STOP Results: Positive - Medications Home Medications: Ambulatory Orders Medication Instructions Recorded multivitamin with folic acid 1 tab PO DAILY 01/01/14 testosterone 6 g TD DAILY 01/01/14 omeprazole 40 mg PO PRN PRN 10/17/18 polysaccharide iron complex 150 mg 150 mg PO BID #60 cap 07/28/20 iron capsule methylphenidate HCl 20 mg tablet 20 mg PO BID 11/05/20 prasterone (dhea) 25 mg capsule 25 mg PO DAILY 11/05/20 oxycodone-acetaminophen 1 tab PO TID 11/09/20 aspirin 81 mg PO DAILY #30 cap 11/10/20 atorvastatin 40 mg tablet 40 mg PO QHS #90 tab 11/18/20 clopidogrel 75 mg tablet 75 mg PO DAILY #90 tab 11/18/20 lisinopril 2.5 mg tablet 2.5 mg PO DAILY #90 tab 11/18/20 metoprolol succinate 25 mg 25 mg PO DAILY #90 tab 11/18/20 tablet,extended release 24 hr ticagrelor 90 mg tablet 90 mg PO BID #60 tab 11/18/20 - Allergies Allergies/Adverse Reactions: Allergies ketorolac tromethamine [From Toradol] Allergy (Verified 11/09/20 02:26) Shortness of breath pollen extracts Allergy (Verified 11/09/20 02:26) Unknown Sulfa (Sulfonamide Antibiotics) Allergy (Verified 11/09/20 02:26) Swelling tolmetin sodium [From Tolectin] Allergy (Verified 11/09/20 02:26) Hives tetracycline [Tetracycline] Adverse Reaction (Verified 11/09/20 02:26) Other Advanced Directives - Advanced Directives Power of Weaving Instructor: No Living Will: No Advance Directives Information Provided: Yes Advance Directives on File: No DNR Order?:: No - MOLST See MOLST form: No Past Medical History - Covid-19 Screening Fever: No Unexplained muscle aches: No Current respiratory symptoms: No Upper respiratory infections symptoms: No Gastro-intestinal symptoms: No [id number] symptoms: No Has tested positive for COVID-19 in last 30 days: No Date of testin05/29/20 - Was tested twice for surgeries but took the vaccine as a precautional measure. Had contact w/person w/symptoms or Covid-19 (+) last 14 days: No Has High Risk Exposures ID'd by Health dept/Inf Control team: No 65 years or older:: Yes Lives in Assisted Living facility:: No Has a chronic lung disease or moderate to severe asthma:: No Has a serious heart condition:: No Immunocompromised:: No Severely obese (Body Mass Index of 40 or higher):: No Diabetic:: No Has chronic kidney disease undergoing dialysis:: No Has liver disease:: No - Past Medical Illness Medical History: Past Medical History (Last Reviewed 11/18/20 @ 11:10 by Desirae VOSS, PA) ADHD F90.9 Anterior myocardial infarction Onset Date: 11/09/20 I21.09 Arthritis M19.90 Atherosclerotic heart disease of [place] coronary artery without angina pectoris I25.10 Back problem M53.9 Bunion of great toe of right foot M21.611 Essential hypertension I10 GERD (gastroesophageal reflux disease) K21.9 Hammer toe of right foot 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 Ischemic cardiomyopathy I25.5 Mechanical pain of left knee M25.562 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 N42.9, R39.9 - Past Surgical History Surgical History: Past Surgical History (Last Reviewed 11/18/20 @ 11:10 by Desirae Yanes PA, PA) History of coronary artery stent placement Onset Date: 11/09/20 Z95.5 PCI-CHRISTAL-Mid LAD w/ 3.0 x 26 mm Orsiro Stent 11/09/20 History of knee surgery Z98.890 R Knee replacement s/p elbows s/p feet total of 29 s/p forearms s/p hands S/P hernia repair Z98.890, Z87.19 s/p neck s/p shoulders Status post reverse total shoulder replacement Z96.619 left 03/23/16 - Family History Summary Family History: Family History (Last Reviewed 11/18/20 @ 11:10 by Desirae Yanes PA, PA) Mother Lung cancer Father Cancer bladder Depression Emphysema lung Social History - Smoking History Smoking Status: Former smoker Hx Tobacco Use: No Hx Smoking Exposure: No - Alcohol Use Alcohol Usage: No - none - Substance Abuse Hx Substance Use: No - Occupation Occupation (List type of work in comments):: Retired - Hobbies, Recreation, Social Activities Hobbies: Hiking, Walking, Exercise - exercises 5 days per week routinely and is very active, Other Recreational Activities: I am able to engage in all my recreational activities - nothing seems to be a problem, feel back to normal Social Environment - Status Marital Status: - Current Living Arrangements Living Environment:: Spouse - Children How many children do you have?: 3 Do any of your children live nearby?: Yes - Safety Do you feel safe in your surroundings?: Yes - Assistance Do you need any assistance at home?: no Review of Systems - Review of Systems Hints: Right click = Denies (Slash). Left click = Reports ([place] Review of Present Symptoms: Reports: Fatigue - from owrking to hard, Appetite - Normal, Appetite - Special Diet - No sodium, low fat, no processed foods, cut out fatty foods.. Denies: Shortness of Breath with Exertion, Angina, Dizziness/Lightheadedness, Heart Arrhythmia/Irregularities, Sleep - Normal, Sexual Changes - Pain Is Patient Pain Free?: Yes Pain Location: upper extremity - shoulder joints, lower extremity - knees when first awake int he day, left knee thinks he may have a torn meniscus. Arthritis adn cervicel fusions. Pain Level: 5/10 - good for me. Risk Factor Assessment - Vital Signs Temperature: 97.4 F Respiratory Rate: 18 Pulse Ox: 98 Blood Pressure: 126/72 - Pulse Pulse Rate: 65 Pulse Rhythm: Regular - Hypertension How long have you been treated?: just recetly as result of the CA Blood Pressure Sitting - Left Arm: 126/72 - Stress Stress: Home/Family - financial concerns - Blood Cholesterol/Lipids Total Cholesterol (mg/dL) Goal = less than 200 mg/dL: 88 HDL Cholesterol (mg/dL) Goal = less than 40 mg/dL: 57 LDL Cholesterol (mg/dL) Goal = less than 70 mg/dL: 92 Triglycerides (mg/dL) Goal = less than 150 mg/dL: 88 - Obesity Height: 5 ft 10 in Weight:: 173 lb Weight in Pounds: 173.0 lbs Weight Source: Stated by Patient Body Mass Index (BMI): 24.8 Nutritional Referral for Obesity: No - Physical Inactivity Physical Inactivity: Reg Exercise 30 min/day, Physically demanding job, Recreational activity - Risk Stratification Risk Guidelines: Lowest Risk: Risk Factor for Smoking, Risk Factor for Dyslipidemia, Risk Factor for Diabetes, Risk Factor for Obesity, Risk Factor for Hypertension, Risk Factor for Sedentary Lifestyle, Risk Factor for Depression - Family History Family History: Family History (Last Reviewed 11/18/20 @ 11:10 by Desirae Yanes PA, PA) Mother Lung cancer Father Cancer Depression Emphysema lung Motivation - Motivation to Participate On a scale of 1 to 10, how prepared are you to commit to attending program?: 10 - 4-6 week program to start to see how things go. What do you see as barriers to successfully being able to complete the program?: arthitis What do you see as the benefits of succesfully completing the program? In other words, what do you hope to get out of participating in the program?: get back to a more healthier lifestyle, be able to resume exercise at home Are there issues you are dealing with that will interfere with completing the program?: no Do you have a spouse or signficant other, family or friends who will help support you to complete the program?: Yes
--- NOTE | 2020-11-20 06:04 | PCM.CR.ITP ---
Diagnosis - General Information Admitting Diagnosis: STEMI, PCI intervention with prescence of coronary angioplasty implant and graft Personal Learning Style:: Audio/Visual, Written Barriers to Learning: No Barriers Stage of change r/t lifestyle modifications:: Action Gave educational material for:: Treating Heart Disease, Emotions & Heart Disease, Stress Management & Relaxation, Sleep Disorders & Heart Disease, How The Heart Works, What it means to have Heart Disease, How Coronary Artery Disease is Diagnosed, Heart Procedures, What Heart Medications Do, Risk Factors & Modifications, Living an Active Life, Nutrition - Education/Goals Individual Counseling: Initial Assessment: Abnormal Cholesterol Levels, High Blood Pressure Cardiac Rehabilitation Goals: 1. Maintain the individual as the primary focus of care. 2. To improve the patient's quality of life. 3. Identification of cardiac risk factors and provide cardiac risk factor management. 4. Enhance the psychosocial status of the patient. 5. Reconditioning enough to allow the patient to resume customary activities. 6. Control symptoms of cardiac disease Personal Goals: Initial Assessment: Improve management of stress and emotions, Improve energy level, Improve diet and eating habits (eat healthier), Control risk factors (learn risk factor modification) Scale for measuring improvement of personal goals: Enter appropriate number in Comments. 2 = Unchanged. 3 = Slightly Better. 4 = Moderate Improvement. 5 = Met my Goal - Diagnosis & Disease Process Outcomes/Goals: Pt IDs own risk factors & lifestyle modifications by Session 10, Verbalizes symptoms of angina & response by session 3., Pt independently manages Plan/Interventions: Assist Pt to ID & engage in lifestyle modification to reduce CVD risk, Instruct on individual risk factors, Review symptoms of angina & emergency actions, Review secondary diagnosis & identify educational needs. - Safety Referral to Physical Therapy: No Referral to [facility] Case Management: No Fall Risk Assessed:: Yes Assistive Devices:: None Exercise - Initial Assessment - Visit Date of Eval: 11/20/20 Session #:: 0 - pre-cardiac rehab evaluation Mets: Pre-: >7 METS for 30 minutes by discharge - Physician Prescribed Exercise Modalities: Treadmill, Rower, Airdyne Frequency: 3x/week for 12 weeks [36 sessions] Intensity: 60-80% of age predicted maximum heart rate reserve Current METSs:: 4.0 Target Heart Rate:: 100-130 Resting Blood Pressure: 126/72 EKG Type: NSR Current Physical Activity or Exercising minutes: Patient physically active works out 5 days per week at home - Outcomes & Goals Goals:: Verbalizes understanding of THR, RPE & goal METS by session 6, Documents in home exercise log/reports 30 min aerobic 5 day/wk by DC, Demonstrates accurate pulse taking by DC - Intervention & Plan Exercise Program Goals: Instruct on personal THR & RPE, Instruct on MET level & personal MET goal, Show patient to take own pulse /validate performance until accurate, Instruct on home exercise - Physical Activity Home Exercise Physical Activity - Home Exercise: Safe Exercise, Warm-up, Self-monitoring, Cool-Down, Home Exercise > 30 min Daily, Sitting Time <3 hours/daily - Outcomes & Goals Outcomes/Goals: Demonstrates correct Warm-up/exercise Cool-Down (S3) if = 2.5 METs, Verbalizes symptoms of exercise intolerance by Session 3 (S3), Demonstrate safe equipment use (S3) & follows exercise prescrition (6) - Intervention & Plan Plan/Intervention: Instruct warm-up & cool-down if exercising at > 2 METs, Instruct on symptoms of exercise intolerance & actions to take, Instruct & monitor on saf, Assess intial functional capacity & safety risk Nutrition - Initial Assessment - Program Goals Nutrition Program Goals: LDL <100 optimal. 100 - 129 Near optimal. 130 - 159 Borderline High. 160 - 189 High. Total Cholesterol <200 desirable. 200 - 239 Borderline High. >/= 240 High. HDL < 40 Low >/=60 High. Triglycerides <150 desirable. <199 optimal. VlDL 5 - 40. HgbA1C <7%. BMI <25 Patient has diagnosis of Hyperlipidemia (ICD E78)?: Yes - Visit Date of Assessment:: 11/20/20 Session #:: 0 - pre-cardiac rehab evaluation - Cholesterol/Lipids Triglycerides (mg/dL): 88 Total Cholesterol (mg/dL): 167 LDL Cholesterol (mg/dL): 92 HDL Cholesterol (mg/dL): 57 Determine presence & major risk factors that modify LDL goal: Hypertension or hypertensive medication, Family history of premature CHD in Male < 55 years: female <65 yearsFa, Age men > 45 years; women >/= 55 years Outcomes/Goals: Pt IDs own risk factors & lifestyle modifications by Session 10, Verbalizes symptoms of angina & response by session 3., Pt independently manages Intervention/Plan: Instruct on personal lipid levels & lipid goals/NCEP guidelines, Instruct on cholesterol - Diabetes (Other Core Measures) Diabetes Type: Not Applicable - Weight Mgt (Other Care) Not Applicable: No Height: 5 ft 6 in Weight:: 173 lb BMI: 27.9 Diagnosis Overweight/Obesity BMI> 30% ICD-10 E66: No Diagnosis High BMI/Morbid Obesity BMI> 35% ICD-10 Z68: No Outcomes/Goals: Pt sets, maintains & shows weight loss goal & trend during rehab Intervention/Plan: Instruct on ideal BMI & set weight loss goal w/patient, Assist pt to ID & incorporate diet changes for weight loss by S9, Encourage goal of using 250-300dcal per session for weight loss - Healthy Eating Habits Will attend diet classes:: Yes Outcomes/Goals:: Consume diet rich in vegs,fruits,whole grain/high fiber,fish,lean meat, Limit sat/trans fats,cholesterol & added salts & sugars Intervention/Plan:: Assess current eating habits - Education Gave educational materials for:: Healthy eating Nutrition - 30-Day Assessment Nutrition - 60-Day Assessment Nutrition - 90-Day Assessment Nutrition - Final Assessment Medical - Initial Assessment - Visit Date of Eval: 11/20/20 Session #:: 0 - Medication Compliance Preventative Medication(s):: Aspirin, Ticagrelor/P2Y12 inhibitor, Statin/lipid, Beta piper H/O mental health issues: depression, anxiety, or addiction?: No Doesn?t believe in the benefits of treatment?: No Believes medications are unnecessary or harmful?: No Has a concern about medication side effects?: No Expresses concern over the cost of medications?: No Outcomes/Goals: Verbalizes medications,desired effect & common side effects @ DC, Pt self-reports following medication regimen Interventions/plans: Instruct on medication effects & side effects, Review medication list w/patient every two weeks, Instruct importance of taking meds as ordered & assist problem solving - Tobacco Use Tobacco Use: Non-smoker - Hypertension Hypertension Diagnosis:: Hypertension ICD-10 I10 Resting Blood Pressure:: 126/72 [place] [employer] Hypertension Guidelines: [place] [employer] Hypertension Guidelines. Normal BP Less than 120/80. Elevated BP 120/80. Hypertension Stage 1: BP 130-139/80-89. Hypertesnion Stage 2: BP 140 or higher/90 or higher. Hypertension Crisis: BP higher than 180/120 Outcomes/Goals: Able to verbalize/achieve optimal blood pressure <130/80, Incorporates diet changes & exercise for blood pressure control by DC Interventions/plan: Instruct on optimal blood pressure, hypertension & medications, Instruct on effects of sodium, alcohol, stress, exercise &hypertension - Tobacco Cessation Referral Smoking Cessation Referral:: No Individual Education/Counseling:: No Education Schedule Given:: Yes - Education Workbook, [employer] & [email or web address] online education Medical- 30-Day Assessment Medical- 60-Day Assessment Medical- 90-Day Assessment Medical - Final Assessment Psychosocial - Initial Assess - VIsit Date of Eval: 11/20/20 Session #:: 0 - Pre-cardiac rehab evaluation Not Applicable: Yes History of previous Mental disease:: No - Psychosocial Test Tool Used:: [employer] QOL Cardiac, PHQ-9 Questionnaire phq-9 Severity: Severity. 1-4 Minimal Depression. 5-9 Mild Depression. 10-14 Moderate Depression. 15-19 Moderately Sever Depression. 20-27 Severe Depression. Rule: - Referral to Behavioral Health PS - Interventions: Yes Attend Stress Management Classes, No Referral to Behavioral Health if PHQ-9 score >9:, No Referral to [facility], No Referral to Physician if PHQ-9 if score is 5-9: - Outcomes/Goals: See list Psychosocial Outcomes/Goals:: ID's personal stressors & 2 strategies to manage stress by discharge - Intervention/Plan: See List Interventions/Plan:: Assess stressors,coping strategies & signs of derpression on admission, Instruct/assist pt to develop coping & personal stress Mgt strategies, Instruct patient to recognize signs & symptoms of depression, Instruct patient to recog Psychosocial - 30-Day Assess Psychosocial - 60-Day Assess Psychosocial - 90-Day Assess Psychosocial - Final Assessmen Patient Health Questionnaire Initial Assessment 1. Little interest or pleasure in doing things: Not at all 2. Feeling down, depressed, or hopeless: Not at all 3. Trouble falling or staying asleep, or sleeping too much: Nearly every day 4. Feeling tired or having little energy: Not at all 5. Poor appetite or overeating: Not at all 6. Feeling bad about yourself -- or that you are a failure or have let yourself or your family down: Not at all 7. Trouble concentrating on things, such as reading the newspaper or watching television: Not at all 8. Moving or speaking so slowly that other people could have noticed. Or the opposite - being so fidgety or restless that you have been moving around a lot more than usual: Not at all 9. Thoughts that you would be better off , or of hurting yourself in some way: Not at all How difficult have these problems made it for you to do your work, take care of things at home, or get along with other people?: Not difficult at all Total Score: 3 PRINCESS-Q SV Test - Statements CAD is a disease of the arteries in the heart: False Examples of risk factors for heart disease: True Angina is chest pain or discomfort: True The benefits of resistance training include: True Eating more meat and dairy products: False Anti-platelet medications such as aspirin are important: True The only effective way to manage stress: False An exercise warm-up slowly increases heart rate: True Prepared, processed foods usually have high sodium: True Depression is common after a heart attack: True The statin medications lower cholesterol: True To control blood pressure, lower the amount of sodium: True If someone gets chest discomfort during walking: False Transfats are partially hydrogenated vegetable oils: I Don't Know Sleep apnea that is not treated increases the risk: False To control cholesterol, one should become a vegetarian: False Someone knows if he/she is exercising at the right level: I Don't Know Diabetes cannot be prevented with exercise & health eating: False Stress is a large risk for heart attack: True A diet that can help lower blood pressure is rich in: True - Total Score Total Correct Responses: 18 Self-Efficacy Initial Assessment We would like to know how confident you are in doing certain activities. Please select your confidence level for:: Select your confidence level for the following using the scale 1-10 where 1 is not at all confident and 10 is totally confident. Your score is the average of all 6 responses. Fatigue: How confident are you that you can keep the fatigue caused by your disease from interfering with the things you want to do? Select Number: 10 Physical Discomfort or Pain: How confident are you that you can keep the physical discomfort or pain of your disease from interfering with the things you want to do? Select Number: 10 Emotional Distress: How confident are you that you can keep the emotional distress caused by your disease from interfering with the things you want to do? Select Number: 10 Other Symptoms or Health Problems: How confident are you that you can keep other symptoms or health problems from interfering with the things you want to do? Select Number: 10 Different Tasks and Activities: How confident are you that you can do the different tasks and activities needed to manage your health condition so as to reduce your need to see a doctor? Select Number: 10 Medication: How confident are you that you can do things other than just taking medication to reduce how much your illness affects your everyday life? Select Number: 10 Total Score:: 10 Nutrition Survey - Nutrition Survey Initial Have you lost >10 lbs over the past 2 months without trying?: Yes Are you following a special diet at home for diabetes, low fat, or low salt?: Yes Are you interested in meeting with a dietitian for help understanding your diet?: No Do you eat less than 3 meals a day?: Yes Do you eat fatty meats (hopkins, sausage, ribs, etc), fried foods, desserts, large amounts of salad dressings, margarine, butter, or cheese most days?: No Do you have food allergies? [Enter types in comment field]: No Do you eat in restaurants more than 3 times a week?: No Do you season food with salt, seasoning salt, or garlic salt?: No Do you used canned, boxed, frozen meals, or soups, seasoning packets?: No Total Score:: 3
[2020-11-20 06:18] VITALS: BP 126/72; BMI 27.9
[2020-11-20 06:34] VITALS: BP 126/72; PULSE 65; RESP 18; TEMP 36.3; O2SAT 98; BMI 24.8
== END ==
PROVIDERS: PCP Family Medicine; Referring Provider Internal Medicine Cardiovascular Disease; Visit Provider Internal Medicine Cardiovascular Disease
DX: I25.10 Atherosclerotic heart disease of native coronary artery without angina pectoris (principal)

== ENCOUNTER → 2020-11-21 13:14 | Outpatient (CLI) | payer MEDICARE, OTHER, SELFPAY ==
[2020-11-20 06:18] VITALS: BMI 27.9
--- NOTE | 2020-11-21 13:15 | MRI_ITS ---
STUDY: MRI LEFT KNEE REASON FOR EXAM: Male, 65 years old. Left knee pain TECHNIQUE: Standardized fat and water weighted pulse sequences were obtained in all 3 orthogonal planes. COMPARISON: Left knee x-ray dated November 05, 2020 FINDINGS: An oblique undersurface tear is present at the periphery and middle one third aspect of the posterior horn of medial meniscus. Intrasubstance signal abnormality and swelling is also present. Normal body and anterior horn. Normal hyaline cartilage of the medial femorotibial compartment. Mild reactive/degenerative signal is present at the periphery of the medial femoral condyle and tibial plateau. Normal medial collateral ligamentous complex (MCL). Normal distal semimembranosus, gracilis and semitendinosus tendons. Normal lateral meniscus. There is diffuse, less than 50% thickness articular cartilage loss of the lateral femorotibial compartment. Normal lateral femoral condyle and tibial plateau. Normal proximal tibiofibular articulation. Normal lateral collateral (fibular) ligament. Normal popliteus tendon. Normal biceps femoris tendon. Normal anterior cruciate ligament (ACL). Normal posterior cruciate ligament (PCL). Normal congruent patellofemoral articulation. Normal hyaline cartilage of the patellofemoral compartment. Normal medial and lateral patellar retinaculum. Normal quadriceps tendon. Normal patellar tendon. Normal Hoffa''s fat pad. A small joint effusion is present. The soft tissues are unremarkable. The otherwise visualized osseous structures are unremarkable. MRI/Lower Ext Joint Only (Routine) IMPRESSION: 1. An oblique undersurface tear is present at the periphery and middle one third aspect of the posterior horn of medial meniscus. Intrasubstance signal abnormality and swelling is also present. Electronically Signed: Fausto Irving MD at 16:50 EDT , Service support ,
== END ==
PROVIDERS: PCP Family Medicine; Referring Provider Orthopaedic Surgery; Visit Provider Orthopaedic Surgery
DX: S83.204A Other tear of unspecified meniscus, current injury, left knee, initial encounter (principal)
CPT/HCPCS: 73721

== ENCOUNTER 2020-12-10 10:30 | Outpatient (RCR) | payer MEDICARE, OTHER, SELFPAY ==
[2020-11-20 06:18] VITALS: BMI 27.9
== END 2020-12-11 23:59 ==
LOC: CR 10:30
PROVIDERS: PCP Family Medicine; Referring Provider Internal Medicine Cardiovascular Disease; Visit Provider Internal Medicine Cardiovascular Disease
DX: I25.10 Atherosclerotic heart disease of native coronary artery without angina pectoris (principal); I25.2 Old myocardial infarction; I10 Essential (primary) hypertension; R00.1 Bradycardia, unspecified; E61.1 Iron deficiency; Z95.5 Presence of coronary angioplasty implant and graft
CPT/HCPCS: 93798

== ENCOUNTER 2020-12-19 10:30 | Outpatient (RCR) | payer MEDICARE, OTHER, SELFPAY ==
[2020-11-20 06:18] VITALS: BMI 27.9
--- NOTE | 2020-12-19 08:06 | CR.ITP_ITS ---
Diagnosis Exercise - 30-day Assessment - Visit Date of Eval: 12/19/20 Session #:: 11 - Physician Prescribed Exercise Modalities: Treadmill, Rower, Airdyne Frequency: 3x/week for 12 weeks [36 sessions] Intensity: 60-80% of age predicted maximum heart rate reserve Current METSs:: 7 Target Heart Rate:: 100-130 Current RPE:: 12 Maximum Excercise HR:: 136 Resting Blood Pressure: 110/50 Maximum Exercise Blood Pressure: 160/60 EKG Type: SR to sinus tachy with rare PACs. - Outcomes & Goals Goals:: Verbalizes understanding of THR, RPE & goal METS by session 6, Documents in home exercise log/reports 30 min aerobic 5 day/wk by DC, Demonstrates accurate pulse taking by DC, Other additional outcome/goals: see below - Intervention & Plan Exercise Program Goals: Instruct on personal THR & RPE, Instruct on MET level & personal MET goal, Show patient to take own pulse /validate performance until accurate, Instruct on home exercise, Other additional plan/int - 30-day Reassessments 30 day Reassessments:: Progressing - Physical Activity Home Exercise Physical Activity - Home Exercise: Safe Exercise, Warm-up, Self-monitoring, Cool-Down, Home Exercise > 30 min Daily, Sitting Time <3 hours/daily - Outcomes & Goals Outcomes/Goals: Demonstrates correct Warm-up/exercise Cool-Down (S3) if = 2.5 METs, Verbalizes symptoms of exercise intolerance by Session 3 (S3), Demonstrate safe equipment use (S3) & follows exercise prescrition (6), Other: See below - Intervention & Plan Plan/Intervention: Instruct warm-up & cool-down if exercising at > 2 METs, Instruct on symptoms of exercise intolerance & actions to take, Instruct & monitor on saf, Assess intial functional capacity & safety risk, Other See below - 30-day Reassessments 30 day Reassessments:: Progressing Nutrition - Initial Assessment Nutrition - 30-Day Assessment - Program Goals Nutrition Program Goals: LDL <100 optimal. 100 - 129 Near optimal. 130 - 159 Borderline High. 160 - 189 High. Total Cholesterol <200 desirable. 200 - 239 Borderline High. >/= 240 High. HDL < 40 Low >/=60 High. Triglycerides <150 desirable. <199 optimal. VlDL 5 - 40. HgbA1C <7%. BMI <25 Patient has diagnosis of Hyperlipidemia (ICD E78)?: Yes - Visit Date of Assessment:: 12/19/20 Session #:: 11 - Cholesterol/Lipids Determine presence & major risk factors that modify LDL goal: Hypertension or hypertensive medication, Low HDL cholesterol <40 mg/dL*, Family history of premature CHD in Male < 55 years: female <65 yearsFa, Age men > 45 years; women >/= 55 years Outcomes/Goals: Pt IDs own risk factors & lifestyle modifications by Session 10, Verbalizes symptoms of angina & response by session 3., Pt independently manages, Other Additional Outcomes/Goals: Intervention/Plan: Advocate for lipid panel cholesterol medication if applicable, Instruct on personal lipid levels & lipid goals/NCEP guidelines, Instruct on cholesterol, Other additional plan/int - Diabetes (Other Core Measures) Diabetes Type: Not Applicable - Weight Mgt (Other Care) Height: 5 ft 6 in Weight:: 72.575 kg BMI: 25.8 Diagnosis Overweight/Obesity BMI> 30% ICD-10 E66: No Diagnosis High BMI/Morbid Obesity BMI> 35% ICD-10 Z68: No Outcomes/Goals: Pt sets, maintains & shows weight loss goal & trend during rehab, Other additional outcomes/goals Intervention/Plan: Instruct on ideal BMI & set weight loss goal w/patient, Assist pt to ID & incorporate diet changes for weight loss by S9, Refer to Structured Weight Loss program as appropriate, Encourage goal of using 250- 300dcal per session for weight loss, Other additional plan/interventions 30 day Reassessments:: Progressing - Healthy Eating Habits Will attend diet classes:: Yes Outcomes/Goals:: Consume diet rich in vegs,fruits,whole grain/high fiber,fish,lean meat, Limit sat/trans fats,cholesterol & added salts & sugars, Other additional outcome/goals: Intervention/Plan:: Assess current eating habits, Other Additional plan/interventions 30-day Reassessments:: Progressing - Education Gave educational materials for:: Signs & symptoms of hypoglycemia, Signs & symptoms of hyperglycemia, Relate diabetes to coronary artery disease, Healthy eating Nutrition - 60-Day Assessment Nutrition - 90-Day Assessment Nutrition - Final Assessment Medical - Initial Assessment Medical- 30-Day Assessment - Visit Date of Eval: 12/19/20 Session #:: 11 - Medication Compliance Preventative Medication(s):: Aspirin, Ticagrelor/P2Y12 inhibitor, Statin/lipid, Beta piper H/O mental health issues: depression, anxiety, or addiction?: No Doesn?t believe in the benefits of treatment?: No Believes medications are unnecessary or harmful?: No Has a concern about medication side effects?: No Expresses concern over the cost of medications?: No Outcomes/Goals: Verbalizes medications,desired effect & common side effects @ DC, Pt self-reports following medication regimen, Keeps card in wallet w/medications listed by DC, Other additional outcome/goals: Interventions/plans: Instruct on medication effects & side effects, Review medication list w/patient every two weeks, Instruct importance of taking meds as ordered & assist problem solving, Other additional 30-day Reassessments:: Progressing - Tobacco Use Tobacco Use: Non-smoker - Hypertension Hypertension Diagnosis:: Hypertension ICD-10 I10 Resting Blood Pressure:: 110/50 [place] [employer] Hypertension Guidelines: [place] [employer] Hypertension Guidelines. Normal BP Less than 120/80. Elevated BP 120/80. Hypertension Stage 1: BP 130-139/80-89. Hypertesnion Stage 2: BP 140 or higher/90 or higher. Hypertension Crisis: BP higher than 180/120 Peak Exercise Blood Pressure:: 160/60 Outcomes/Goals: Able to verbalize/achieve optimal blood pressure <130/80, Incorporates diet changes & exercise for blood pressure control by DC, Other additional outcomes/goals 30 day Reassessments:: Progressing - Tobacco Cessation Referral Smoking Cessation Referral:: No Individual Education/Counseling:: No Education Schedule Given:: Yes Medical- 60-Day Assessment Medical- 90-Day Assessment Medical - Final Assessment Psychosocial - Initial Assess Psychosocial - 30-Day Assess - VIsit Date of Eval: 12/19/20 Session #:: 11 History of previous Mental disease:: No - Outcomes/Goals: See list Psychosocial Outcomes/Goals:: ID's personal stressors & 2 strategies to manage stress by discharge, Other Additional outcome/goals: - Intervention/Plan: See List Interventions/Plan:: Assess stressors,coping strategies & signs of derpression on admission, Instruct/assist pt to develop coping & personal stress Mgt strategies, Refer to Behavioral Health if appropriate, Refer to Physician if appropriate, Instruct patient to recognize signs & symptoms of depression, Instruct patient to recog, Other additional plan/intervention - 30-day Reassessments: 30 day Reassessments:: Progressing Psychosocial - 60-Day Assess Psychosocial - 90-Day Assess Psychosocial - Final Assessmen Patient Health Questionnaire 30-Day Re-eval Assessment 1. Little interest or pleasure in doing things: Not at all 2. Feeling down, depressed, or hopeless: Not at all 3. Trouble falling or staying asleep, or sleeping too much: Nearly every day 4. Feeling tired or having little energy: Not at all 5. Poor appetite or overeating: Not at all 6. Feeling bad about yourself -- or that you are a failure or have let yourself or your family down: Not at all 7. Trouble concentrating on things, such as reading the newspaper or watching television: Not at all 8. Moving or speaking so slowly that other people could have noticed. Or the opposite - being so fidgety or restless that you have been moving around a lot more than usual: Not at all 9. Thoughts that you would be better off , or of hurting yourself in some way: Not at all How difficult have these problems made it for you to do your work, take care of things at home, or get along with other people?: Not difficult at all Total Score: 3 Self-Efficacy 30-Day Re-eval Assessment We would like to know how confident you are in doing certain activities. Please select your confidence level for:: Select your confidence level for the following using the scale 1-10 where 1 is not at all confident and 10 is totally confident. Your score is the average of all 6 responses. Fatigue: How confident are you that you can keep the fatigue caused by your disease from interfering with the things you want to do? Select Number: 10 Physical Discomfort or Pain: How confident are you that you can keep the physical discomfort or pain of your disease from interfering with the things you want to do? Select Number: 10 Emotional Distress: How confident are you that you can keep the emotional distress caused by your disease from interfering with the things you want to do? Select Number: 10 Other Symptoms or Health Problems: How confident are you that you can keep other symptoms or health problems from interfering with the things you want to do? Select Number: 10 Different Tasks and Activities: How confident are you that you can do the different tasks and activities needed to manage your health condition so as to reduce your need to see a doctor? Medication: How confident are you that you can do things other than just taking medication to reduce how much your illness affects your everyday life? Nutrition Survey
[2020-12-19 08:19] VITALS: BP 110/50; BP 160/60; BMI 25.8
== END 2021-01-11 23:59 ==
LOC: CR 10:30
PROVIDERS: PCP Family Medicine; Referring Provider Internal Medicine Cardiovascular Disease; Visit Provider Internal Medicine Cardiovascular Disease
DX: I25.10 Atherosclerotic heart disease of native coronary artery without angina pectoris (principal); I25.2 Old myocardial infarction; I10 Essential (primary) hypertension; E61.1 Iron deficiency; R00.1 Bradycardia, unspecified; Z95.5 Presence of coronary angioplasty implant and graft
CPT/HCPCS: 93798

== ENCOUNTER → 2021-01-19 06:32 | Outpatient (CLI) | payer MEDICARE, SELFPAY ==
[2021-01-19 07:38] LABS: Absolute Lymphocyte Count 0.91 X10^3/uL (0.83-4.51); Absolute Neutrophil Count 1.9 X10^3/uL (2.0-7.7); Basophil# 0.03 X10^3/uL; Basophil% 0.9 % (0-1); Eosinophils% 3.1 % (0-5); Hematocrit 40.5 % (40-54); Hemoglobin 13.6 g/dL (13.0-16.5); Lymphocyte # 0.91 X10^3/ul (0.83-4.51); Mean Corp Hgb Conc 33.6 g/dL (32-36); Mean Corpuscular Hgb 29.7 pg (27.0-32.0); Mean Corpuscular Volume 88.4 fL (80-94); Mean Platelet Vol. 9.4 fl (6.2-12.0); Monocyte# 0.28 X10^3/uL; Monocyte% 8.6 % (0-10); NRBC Flagged by Analyzer 0 % (0-5); Neutrophil # 1.93 X10^3/uL (2.7-7.7); Neutrophil % 59.4 % (47-70); Platelet Count 215 K/mm3 (150-450); RBC Distribution Width CV 13.2 % (11.6-14.6); RBC Distribution Width SD 42.9 fl (35.1-43.9); Red Blood Count 4.58 M/mm3 (4.6-6.2); White Blood Count 3.3 K/mm3 (4.4-11.0)
[2021-01-19 08:04] LABS: AST(SGOT) 30 U/L (15-37); Alanine Aminotransfer ALT/SGPT 32 U/L (16-61); Albumin, Serum 3.6 g/dL (3.2-5.0); Alkaline Phosphatase 79 U/L (45-117); Anion Gap 5 (5-15); BUN 14 mg/dL (7-18); BUN/Creat Ratio 13.6 RATIO (10-20); Calcium,Total 9.1 mg/dL (8.5-10.1); Chloride 103 mmol/L (98-107); Creatinine, Serum 1.03 mg/dL (0.70-1.30); EST Glomerular Filtration Rate 77 mL/min (>60); Est Glom Filt Rate - Afr Amer 93 mL/min (>60); Globulin 3.6 g/dL (2.2-4.2); Glucose 100 mg/dL (74-106); Protein, Total 7.2 g/dL (6.4-8.2); Sodium Level 138 mmol/L (136-145)
[2021-01-23 12:07] LABS: Testosterone, % Free 2.76 % (1.50-4.20); Testosterone, Free 13.11 ng/dL (5.00-21.00)
[2021-01-23 13:34] LABS: Testosterone, Total 475 ng/dL (264-916)
[2021-01-23 13:35] LABS: PSA, Free 0.18 ng/mL; PSA, Total Ultrasensitive 0.4 ng/mL (0.0-4.0)
== END ==
PROVIDERS: PCP Family Medicine; Referring Provider Internal Medicine Endocrinology, Diabetes & Metabolism; Visit Provider Internal Medicine Endocrinology, Diabetes & Metabolism
DX: E29.1 Testicular hypofunction (principal); N42.9 Disorder of prostate, unspecified
CPT/HCPCS: 36415; 80053; 84153; 84154; 84402; 84403; 85025

== ENCOUNTER → 2021-01-26 15:12 | Outpatient (CLI) | payer MEDICARE, OTHER, SELFPAY ==
--- NOTE | 2021-01-26 15:16 | RAD_ITS ---
STUDY: X-RAY - ABDOMEN/PELVIS REASON FOR EXAM: Male, 65 years old. KIDNEY STONE TECHNIQUE: Single AP view of the abdomen / pelvis. COMPARISON: 11/07/2017 FINDINGS: Normal visualized lung bases. There is an unremarkable bowel gas pattern. The visualized liver, spleen and kidneys are grossly normal in size and morphology. Tiny calcific opacity overlying the upper pole of the right kidney consistent with a right renal stone. Normal soft tissue structures. Normal visualized osseous structures. RAD/Abdomen Single View IMPRESSION: Normal x-ray examination of the abdomen and pelvis. Suspect tiny right renal stone. Electronically Signed: Avel Hernandez MD at 15:30 EST Tel , Service support ,
== END ==
PROVIDERS: PCP Family Medicine; Referring Provider Family Medicine; Visit Provider Family Medicine
DX: N20.0 Calculus of kidney (principal)
CPT/HCPCS: 74018

== ENCOUNTER → 2021-02-16 09:02 | Outpatient (CLI) | payer MEDICARE, OTHER, SELFPAY ==
--- NOTE | 2021-02-16 09:03 | ECHOD_ITS ---
Reason For Study: Decreased EF Procedure This was a 2D Doppler, Color Flow transthoracic echocardiogram. Exam performed in department. Left Ventricle Normal LV size. Left ventricular systolic function is normal. The estimated ejection fraction is 55 %. Stage 1 diastolic dysfunction. No regional wall motion abnormalities noted. Right Ventricle Normal RV size. Normal systolic function. Atria Normal left atrium. Normal right atrium. Mitral Valve Normal mitral valve. Tricuspid Valve Normal tricuspid valve. Mild tricuspid valve insufficiency. Aortic Valve Trisinus/trileaflet aortic valve. Normal aortic valve. Pulmonic Valve Normal pulmonic valve. Great Vessels Normal aortic root. The pulmonary artery is normal size. Normal inferior vena cava. Pericardium/Pleural No pericardial effusion. MMode/2D Measurements & Calculations LVIDd: 4.4 cm IVSd: 0.98 cm Ao root diam: 3.4 cm LVIDs: 2.3 cm LVPWd: 0.77 cm RVDd: 3.5 cm FS: 49.2 % LAV(MOD-bp): 44.9 ml LVAd ap4: 30.0 cm2 LVAd ap2: 33.3 cm2 LAV(MOD-bp) Indexed: 23.8 ml/m2 LVLd ap4: 8.4 cm LVLd ap2: 8.8 cm LAV(MOD-sp2): 35.8 ml EDV(MOD-sp4): 87.4 ml EDV(MOD-sp2): 105.4 ml LAV(MOD-sp4): 46.7 ml EDV(sp4-el): 90.9 ml EDV(sp2-el): 106.9 ml LVAs ap4: 17.7 cm2 LVAs ap2: 17.9 cm2 LVLs ap4: 7.2 cm LVLs ap2: 7.3 cm ESV(MOD-sp4): 37.1 ml ESV(MOD-sp2): 37.0 ml ESV(sp4-el): 36.9 ml ESV(sp2-el): 37.2 ml EF(MOD-sp4): 57.5 % EF(MOD-sp2): 64.9 % EF(sp4-el): 59.4 % SV(MOD-sp4): 50.3 ml SV(MOD-sp2): 68.4 ml SV(sp4-el): 54.0 ml LA dimension(2D): 3.2 cm LA A4 area: 16.1 cm2 RA A4 area: 14.7 cm2 Doppler Measurements & Calculations MV E max jonny: 83.1 cm/sec Lat Peak E' Jonny: 11.7 cm/sec Med Peak E' Jonny: 8.1 cm/sec MV A max jonny: 84.8 cm/sec E/E' lat: 7.1 E/E' med: 10.3 MV E/A: 0.98 Ao V2 max: 121.2 cm/sec LV V1 max: 102.4 cm/sec PA V2 max: 94.7 cm/sec Ao max P.9 mmHg LV V1 max P.2 mmHg TR max jonny: 189.5 cm/sec TR max P.4 mmHg ECHO/Echo Complete Interpretation Summary Normal LV size. Left ventricular systolic function is normal. The estimated ejection fraction is 55 %. Stage 1 diastolic dysfunction. Ordering Physician: Desirae Yanes/Ricardo Garner Referring Physician: Darrian Ibarra Performed By: Aixa Hemphill RDCS
== END ==
PROVIDERS: PCP Family Medicine; Referring Provider Physician Assistant Medical; Visit Provider Physician Assistant Medical
DX: I25.10 Atherosclerotic heart disease of native coronary artery without angina pectoris (principal)
CPT/HCPCS: 93306

== ENCOUNTER → 2021-02-18 13:04 | Outpatient (CLI) | payer MEDICARE, OTHER, SELFPAY ==
[2021-02-18 15:52] LABS: AST(SGOT) 21 U/L (15-37); Alanine Aminotransfer ALT/SGPT 28 U/L (16-61); Albumin, Serum 3.5 g/dL (3.2-5.0); Alkaline Phosphatase 77 U/L (45-117); Bilirubin, Direct 0.09 mg/dL (0.00-0.30); Cholesterol 131 mg/dL (200); Globulin 3.2 g/dL (2.2-4.2); High Density Lipoprotein 59 mg/dL; Protein, Total 6.7 g/dL (6.4-8.2); Triglycerides 104 mg/dL; Very Low Density Lipoprotein 21 mg/dL (5-40)
== END ==
PROVIDERS: PCP Family Medicine; Referring Provider Physician Assistant Medical; Visit Provider Physician Assistant Medical
DX: I25.10 Atherosclerotic heart disease of native coronary artery without angina pectoris (principal); I25.5 Ischemic cardiomyopathy
CPT/HCPCS: 36415; 80061; 80076

== ENCOUNTER 2021-04-03 16:13 | Outpatient (CLI) | payer MEDICARE, OTHER, SELFPAY ==
--- NOTE | 2021-04-03 16:32 | MRI_ITS ---
STUDY: MRI CERVICAL SPINE WITHOUT CONTRAST REASON FOR EXAM: Male, 65 years old. STENOSIS, S/P SPINAL FUSION TECHNIQUE: Standardized fat and water weighted pulse sequences were obtained in the sagittal and axial planes. MRI examination of the cervical spondylosis standard protocol including multiplanar multiecho noncontrast imaging COMPARISON: 11/14/2019 FINDINGS: Vertebral bodies and alignment: 1. Vertebral body height and alignment are maintained. 2. There are postoperative changes with interbody fusion anterior plate and screw fixation from C6 to C7, additional interbody fusion at C5-6. 3. No evidence of marrow edema fracture or destructive marrow replacement process. 4. Prevertebral soft tissue planes have normal appearance. 5. Normal appearance the odontoid process and alignment of the craniocervical junction. 6. Normal appearance the posterior muscular fascial planes of the cervical spine, and the posterior ligamentous support structure the cervical spine is intact. Intervertebral disc levels: C2-3: Disc desiccation noted without disc herniation or canal stenosis. Bilateral foraminal narrowing due to facet and uncovertebral joint hypertrophic changes greater on LEFT than RIGHT. C3-4: Disc desiccation, broad-based chronic appearing disc bulge and osteophyte complex with deformity of the anterior epidural space, central canal is maintained at approximately 8 mm. There is mild cord contact without acute cord compression. There is significant foraminal narrowing greater on the LEFT than RIGHT contributed by facet and uncovertebral joint hypertrophic changes. Severe LEFT foraminal stenosis is present. C4-5: Disc desiccation, broad-based posterior disc bulge and osteophyte complex without evidence of cord compression, central canal is maintained at approximately 9 to 10 mm. Bilateral foraminal stenosis is noted greater on LEFT than RIGHT due to facet and uncovertebral joint hypertrophic changes C5-6: Sequelae of interbody fusion. Minimal posterior osteophyte. No canal stenosis or cord compression. Foraminal narrowing status stenosis greater on LEFT than RIGHT due to facet and uncovertebral joint hypertrophic changes. C6-7: Postoperative changes of interbody fusion anterior plate and screw fixation without canal stenosis. Bilateral foraminal stenosis greater on the LEFT than RIGHT due to facet and uncovertebral joint hypertrophic changes. C7-T1: Disc desiccation, broad-based posterior disc bulge and osteophyte complex. There is a subtle degenerative grade 1 anterolisthesis of C7 on T1. There is moderate foraminal stenosis bilaterally due to facet and disc osteophyte formation. Spinal CORD: There is normal appearance the spinal cord. No intramedullary signal abnormality, masses or syrinx. Normal appearance of the cervical medullary junction. No evidence cord compression. MRI/Spine Cervical (Routine) IMPRESSION: 1. Postoperative changes of interbody fusion at C5-6, and interbody fusion and anterior plates and fixation at C6-7. 2. Broad-based posterior disc bulge/protrusion osteophyte complex at C3-4 with moderate canal stenosis, there is cord contact without evidence cord compression. Similar chronic appearing disc bulges and osteophyte complex at C4-5. No acute cord compression. 3. Multilevel foraminal narrowing greater on LEFT than RIGHT contributed by facet and uncovertebral joint hypertrophic changes. 4. Normal appearance the spinal cord without evidence cord compression, cord edema or intramedullary signal abnormality. Electronically Signed: Avel Brian MD at 22:40 EST Tel , Service support ,
== END 2021-04-03 23:59 | disposition short-term general hospital (02) ==
LOC: MRI 16:13
PROVIDERS: PCP Family Medicine; Referring Provider Nurse Practitioner Acute Care; Visit Provider Nurse Practitioner Acute Care
DX: M48.02 Spinal stenosis, cervical region (principal); Z98.1 Arthrodesis status
CPT/HCPCS: 72141

== ENCOUNTER 2021-06-22 06:08 | Outpatient (CLI) | payer MEDICARE, OTHER, SELFPAY ==
[2021-05-29 12:50] VITALS: BMI 25.8
[2021-06-22 08:12] LABS: ALB/GLOB Ratio 1.2 RATIO (0.9-2.4); AST(SGOT) 22 U/L (15-37); Alanine Aminotransfer ALT/SGPT 26 U/L (16-61); Albumin, Serum 3.8 g/dL (3.2-5.0); Alkaline Phosphatase 59 U/L (45-117); Anion Gap 4 (5-15); BUN 17 mg/dL (7-18); BUN/Creat Ratio 17.6 RATIO (10-20); Calcium,Total 8.7 mg/dL (8.5-10.1); Chloride 107 mmol/L (98-107); Cholesterol 163 mg/dL (200); Creatinine, Serum 0.97 mg/dL (0.70-1.30); EST Glomerular Filtration Rate 82 mL/min (>60); Est Glom Filt Rate - Afr Amer 100 mL/min (>60); Globulin 3.1 g/dL (2.2-4.2); Glucose 97 mg/dL (74-106); High Density Lipoprotein 72 mg/dL; Potassium 4.1 mmol/L (3.5-5.1); Protein, Total 6.9 g/dL (6.4-8.2); Sodium Level 139 mmol/L (136-145); Thyroid Stim Hormone (TSH) 1.71 uIU/mL (0.358-3.74); Triglycerides 76 mg/dL; Very Low Density Lipoprotein 15 mg/dL (5-40)
[2021-06-26 10:09] LABS: Testosterone, Free 5.18 ng/dL (5.00-21.00)
[2021-06-26 13:32] LABS: Testosterone, % Free 2.14 % (1.50-4.20); Testosterone, Total 242 ng/dL (264-916)
== END 2021-06-22 23:59 | disposition home or self-care (01) ==
LOC: LAB 06:10
PROVIDERS: PCP Family Medicine; Referring Provider Internal Medicine Endocrinology, Diabetes & Metabolism; Visit Provider Internal Medicine Endocrinology, Diabetes & Metabolism
DX: E78.2 Mixed hyperlipidemia (principal); E04.0 Nontoxic diffuse goiter; E55.9 Vitamin D deficiency, unspecified
CPT/HCPCS: 36415; 80053; 80061; 82306; 84402; 84403; 84443

== ENCOUNTER 2021-06-26 08:00 | Outpatient (RCR) | payer MEDICARE, OTHER, SELFPAY ==
--- NOTE | 2021-05-15 11:12 | HP.OTEVAL ---
Patient's Visit Information VAUGHN DINERO is a 66 year old M, referred to Occupational Therapy by Dr. 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 pt states about a year and a half ago he noticed he had a sore on his hand and then noticed difficulty with left wrist/and hand motion about 6 months ago. pt had MRI and had dx. and sx on 05/11/21. pt arrives today with soft sx splint on in need of custom orthosis WHFO with digits if full extension at night and intermittent day -. Order request eval -tx AAROM/AROM forearm, AAROM/AROM wrist, AAROM/AROM digits PROM forearm, PROM wrist, PROM digits and edema reduction salvatore. along with instruction/work simplification/joint protection, ADL-. pt limited with functional use of left hand with ADLs and IADLs at this time. Pt would like to return to using left hand with all ADLS and IADLS. - Pain left hand/wrist 8 Pain Intensity Range: 8 - ROM Wrist: left 30/30 right 60/55 Opposition: Kapand[place] left 3 right 10 ROM Comments: left UD [address] RD 15. right UD [address] 20. pt demo with limited ability to form composite fist. 2 away from fist. pt demo full digit extension - Strength Strength Comments: will test later date - Edema PIP: left MF 7.5 right 7.2 Proximal Phalanx: left 26cm right 22cm - Sensation Sensation Comments: denies - Quick DASH-Disab of Arm,Shoulder& Hand Quick DASH Score: 79.5450 - Goals Goal:100% adherence to protocol: Yes Comment: Dr. Brendan ruiz orders following the above listed sx-repair of EDC EIP Goal:Daily scar massage when approriate: Yes Goal:ROM equal to unaffected hand: Yes Goal:Real Estate Closing Coordinator/Pinch strength at least 75% of unaffected hand: Yes Goal:No pain with affected hand use: Yes Goal:PIP Circumferences equal to unaffected hand: Yes Goal:Full use of affected hand in daily activities including: Yes Comment: orthosis use Other Goal: pt demo IND doffing/donning of custom WHFO by end of session 1. Pt demo understanding of orthosis precautions and to return to clinic for orthosis adj. as needed by end of 1st session. - Rehabilitation General Assessment: sx on 05/11/21-pt currently s/p 2 days from extensor tenosynovectomy left wrist compartments II,II IV,. excision neuroma posterior interosseous nerve and burying in muscle -. Arthrotomy wrist joint with synovectomy. Repair EDC to IF, Long and ring fingers. Repair of EIP. pt arrives today with soft sx splint on in need of custom orthosis WHFO with digits if full extension at night and intermittent day -. Order request eval -tx AAROM/AROM forearm, AAROM/AROM wrist, AAROM/AROM digits PROM forearm, PROM wrist, PROM digits and edema reduction salvatore. along with instruction/work simplification/joint protection, ADL-. pt demo with limited ROM of left wrist/digits and is limited with use of left hand with ADLs and IADLs. pt would benefit from skilled OT services 2-3x week for 6 weeks to assist pt in returning pts left digit, wrist and forearm ROM and strength for pt to return to his PLOF. \. today therapist osmar. custom orthosis placing digits in full ext per request of Dr. Childers-. therapist ed. pt on AAROM/AROM and PROM of wrist/ digits and forearm- pt was given handout and demo understanding of HEP and agree to POC. Rehabilitation Potential: Good - Anticipated Interventions A/AAROM/PROM, Edema Control, Scar Care, Modalities, Orthoses - Visit Plan Frequency: 2-3x /Week Duration: 6 Weeks TEXT: Thank you for the opportunity to evaluate your patient. For Medicare and Medicare HMO plans, please review the plan of care and approve it. It will need to be FAXED BACK to us at [phone] for Medicare purposes. Please let me know if there are questions or concerns regarding this plan of care. Physician Signature: Date:
--- NOTE | 2021-05-21 07:51 | OTREVAL_ITS ---
Dr. 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 Please see the progress note below for an update on the occupational therapy plan of care! Subjective: pt states he is doing his exercise daily and is starting to use his hand with light grooming and daily tasks- states after sleeping in his orthosis he has tightness. Objective/Function: left wrist ROM 20/30 PROM 40/ 35. pts swelling is better now that he got the compression glove-. edema of left MF at PIP 7.0 a decrease from 7.5. MCP circumference 21.5cm down from 26cm. pt demo opposition to side of small finger at DIPJ. Pt demo with increase in composite fist to 1/2 away from fist- this was increase as initial eval pt was 2 from composite fist. pt is making good gains with is ROM and edema is better- Plan Frequency: 2-3x /Week Duration: 6 Weeks Plan: cont with ROM as indicated. will initiate strengthening at 6 weeks s/p unless otherwise specified by ( please advise) Goals - Goals Patient Goals: Regain Mobility, Use Hand/Wrist/Arm Normally Again, Be More Independent in ADLS Goal:100% adherence to protocol: Yes Goal:Daily scar massage when approriate: Yes Goal:ROM equal to unaffected hand: Yes Goal:Reports Developer/Pinch strength at least 75% of unaffected hand: Yes Goal:No pain with affected hand use: Yes Goal:PIP Circumferences equal to unaffected hand: Yes Goal:Full use of affected hand in daily activities including: Yes Other Goal: pt demo IND doffing/donning of custom WHFO by end of session 1. Pt demo understanding of orthosis precautions and to return to clinic for orthosis adj. as needed by end of 1st session. Anticipated Interventions Anticipated Interventions: A/AAROM/PROM, Edema Control, Scar Care, Modalities, Orthoses Please do not hesitate to contact me at [phone] by phone or if you have questions or concerns regarding this new plan of care! Sincerely, Desirae Mckeon, OTR/L, CHT
--- NOTE | 2021-11-24 13:20 | HP.OTDCSUM_ITS ---
It has been my pleasure to treat VAUGHN DINERO under orders from Dr. 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 Please see the following information for a summary of their discharge status. % Improvement: 65 Objective/Function: left wrist 35/35. pt demo with full digit ext and with some hyper ext at mcp at average of 15*. pt demo full composite fist-. left v belt inspector 65# right 110# Patient Goals: Regain Mobility, Use Hand/Wrist/Arm Normally Again, Be More Independent in ADLS Goal:100% adherence to protocol: Yes Goal:Daily scar massage when approriate: Yes Goal:ROM equal to unaffected hand: Yes Goal:Farm Machinery Mechanic/Pinch strength at least 75% of unaffected hand: Yes Goal:No pain with affected hand use: Yes Goal:PIP Circumferences equal to unaffected hand: Yes Goal:Full use of affected hand in daily activities including: Yes Other Goal: pt demo IND doffing/donning of custom WHFO by end of session 1. Pt demo understanding of orthosis precautions and to return to clinic for orthosis adj. as needed by end of 1st session. Plan: pt is progressing very well- therapist advised on not doing to much until he see next week If there are questions or concerns regarding this patient's occupational therapy, please fell free to call me at [phone]. Thank you for the referral of this patient. Sincerely, Desirae Mckeon, OTR/L, CHT
== END 2021-06-26 19:00 | disposition home or self-care (01) ==
LOC: OT 08:00
PROVIDERS: PCP Family Medicine; Referring Provider Orthopaedic Surgery; Visit Provider Orthopaedic Surgery
DX: D48.1 Neoplasm of uncertain behavior of connective and other soft tissue (principal)
CPT/HCPCS: 97110; 97140; 97166; 97530; 97760

== ENCOUNTER 2021-09-29 06:04 | Outpatient (CLI) | payer MEDICARE, OTHER, SELFPAY ==
[2021-05-29 12:50] VITALS: BMI 25.8
[2021-09-29 07:19] LABS: Absolute Lymphocyte Count 1.19 X10^3/uL (0.83-4.51); Basophil# 0.03 X10^3/uL; Basophil% 0.8 % (0-1); Eosinophils% 2.7 % (0-5); Hematocrit 38.8 % (40-54); Lymphocyte # 1.19 X10^3/ul (0.83-4.51); Lymphocyte % 32.4 % (19-41); Mean Corp Hgb Conc 33.5 g/dL (32-36); Mean Corpuscular Volume 89.4 fL (80-94); Mean Platelet Vol. 9.4 fl (6.2-12.0); Monocyte# 0.33 X10^3/uL; NRBC Flagged by Analyzer 0 % (0-5); Neutrophil # 2.02 X10^3/uL (2.7-7.7); Neutrophil % 55.1 % (47-70); Platelet Count 179 K/mm3 (150-450); RBC Distribution Width CV 12.8 % (11.6-14.6); RBC Distribution Width SD 42.5 fl (35.1-43.9); Red Blood Count 4.34 M/mm3 (4.6-6.2); White Blood Count 3.7 K/mm3 (4.4-11.0)
[2021-09-29 07:48] LABS: ALB/GLOB Ratio 1.3 RATIO (0.9-2.4); AST(SGOT) 32 U/L (15-37); Alanine Aminotransfer ALT/SGPT 35 U/L (16-61); Albumin, Serum 3.8 g/dL (3.2-5.0); Alkaline Phosphatase 59 U/L (45-117); Anion Gap 6 (5-15); BUN 12 mg/dL (7-18); Bilirubin, Direct 0.11 mg/dL (0.00-0.30); Calcium,Total 9.1 mg/dL (8.5-10.1); Chloride 105 mmol/L (98-107); Cholesterol 140 mg/dL (200); Creatinine, Serum 1.09 mg/dL (0.70-1.30); EST Glomerular Filtration Rate 72 mL/min (>60); Est Glom Filt Rate - Afr Amer 87 mL/min (>60); Glucose 103 mg/dL (74-106); High Density Lipoprotein 69 mg/dL; Potassium 4.3 mmol/L (3.5-5.1); Protein, Total 6.8 g/dL (6.4-8.2); Sodium Level 141 mmol/L (136-145); Triglycerides 55 mg/dL; Very Low Density Lipoprotein 11 mg/dL (5-40)
[2021-09-29 08:20] LABS: Vitamin D,25 Hydroxy 53.8 ng/mL
[2021-10-03 12:08] LABS: Testosterone, % Free 1.05 % (1.50-4.20); Testosterone, Free 1.74 ng/dL (5.00-21.00)
[2021-10-03 13:46] LABS: PSA, Free 0.27 ng/mL; PSA, Total Ultrasensitive 0.6 ng/mL (0.0-4.0); Testosterone, Total 166 ng/dL (264-916)
== END 2021-09-29 23:59 | disposition home or self-care (01) ==
LOC: LAB 06:06
PROVIDERS: Physician Assistant Medical; PCP Family Medicine; Referring Provider Internal Medicine Endocrinology, Diabetes & Metabolism; Visit Provider Internal Medicine Endocrinology, Diabetes & Metabolism
DX: G35 Multiple sclerosis (principal); J32.4 Chronic pansinusitis
CPT/HCPCS: 36415; 80053; 80061; 82248; 82306; 84153; 84154; 84402; 84403; 85025

== ENCOUNTER → 2021-11-30 | Outpatient (CLI) | payer MEDICARE, OTHER, SELFPAY ==
[2021-05-29 12:50] VITALS: BMI 25.8
--- NOTE | 2021-11-30 06:39 | MRI_ITS ---
STUDY: MRI LEFT ELBOW WITH AND WITHOUT CONTRAST REASON FOR EXAM: Left elbow pain for 6 to 8 weeks, no specific injury. TECHNIQUE: Standardized fat and water weighted pulse sequences were obtained in all 3 orthogonal planes before and after intravenous administration of 15 mL of Clariscan. COMPARISON: None. FINDINGS: Normal radio-capitellum articulation. Normal radial collateral ligamentous complex. There is an undersurface partial tear of the common extensor tendon (inversion recovery coronal images 11, 12). Normal ulnotrochlear articulation. Normal ulnar collateral ligamentous complex. There is mild tendinosis of the common flexor tendon (inversion recovery coronal image 15) without discrete tendon tear. The ulnar nerve is is located anterior to the cubital tunnel (T1 axial images 16, 17) suggestive of unreported ulnar nerve transposition. There is a partial tear of the distal biceps tendon (T2 axial images 3-6) with bicipitoradialis bursal fluid and bursal contrast enhancement (postcontrast T1 axial images 30-10). Normal lacertus fibrosis. Normal brachialis musculotendinous insertion. Normal triceps tendon and teno-osseous insertion. Normal olecranon process. The visualized distal humerus, proximal radius, and ulna are normal. The visualized muscles of the distal arm and proximal forearm are normal. The soft tissue structures are unremarkable. MRI/Upper Ext Joint Only W/WO Cont IMPRESSION: Partial tear of the distal biceps tendon with bicipitoradialis bursitis. Undersurface partial tear of the common extensor tendon. Mild tendinosis of the common flexor tendon. Anterior location of the ulnar nerve. Electronically Signed: Bruce Cordoba MD at 8:24 EDT ,
[2021-11-30 07:49] LABS: ALB/GLOB Ratio 1.3 RATIO (0.9-2.4); AST(SGOT) 33 U/L (15-37); Alanine Aminotransfer ALT/SGPT 35 U/L (16-61); Albumin, Serum 3.9 g/dL (3.2-5.0); Alkaline Phosphatase 62 U/L (45-117); Anion Gap 7 (5-15); BUN 18 mg/dL (7-18); BUN/Creat Ratio 16.7 RATIO (10-20); Calcium,Total 9.3 mg/dL (8.5-10.1); Chloride 107 mmol/L (98-107); Cholesterol 169 mg/dL (200); Creatinine, Serum 1.08 mg/dL (0.70-1.30); EST Glomerular Filtration Rate 72 mL/min (>60); Est Glom Filt Rate - Afr Amer 88 mL/min (>60); Globulin 3.1 g/dL (2.2-4.2); Glucose 103 mg/dL (74-106); High Density Lipoprotein 70 mg/dL; Potassium 4.4 mmol/L (3.5-5.1); Sodium Level 140 mmol/L (136-145); Triglycerides 74 mg/dL; Very Low Density Lipoprotein 15 mg/dL (5-40)
[2021-12-11 21:08] LABS: Testosterone, Free 1.97 ng/dL (5.00-21.00)
[2021-12-13 09:09] LABS: Testosterone, % Free 1.64 % (1.50-4.20); Testosterone, Total 120 ng/dL (264-916)
== END | disposition home or self-care (01) ==
LOC: MRI 06:11
PROVIDERS: Internal Medicine Endocrinology, Diabetes & Metabolism; PCP Family Medicine; Referring Provider Orthopaedic Surgery; Visit Provider Orthopaedic Surgery
DX: E78.2 Mixed hyperlipidemia (principal)
CPT/HCPCS: 36415; 73223; 80053; 80061; 84402; 84403; A9575

== ENCOUNTER → 2021-12-07 | Outpatient (CLI) | payer MEDICARE, OTHER, SELFPAY ==
[2021-05-29 12:50] VITALS: BMI 25.8
--- NOTE | 2021-12-07 09:40 | RAD_ITS ---
STUDY: X-RAY - LUMBAR SPINE REASON FOR EXAM: Male, 66 years old. EVALUATE FOR DDD TECHNIQUE: 5 view(s) of the lumbar spine were obtained. COMPARISON: 11/07/2017 FINDINGS: Normal lumbar lordosis. There is no substantial scoliosis. 5 mm of anterolisthesis of L4 on L5. There is multilevel endplate spondylosis of the lumbar vertebrae. There is multi-level degenerative disc disease with multi-level disc space narrowing. Facet hypertrophy in the lower lumbar spine. Rudimentary disc at S1/S2. The soft tissue structures are unremarkable. RAD/L/S Spine Min 4 Views IMPRESSION: Degenerative changes of the spine, as detailed above. MRI would be useful. Electronically Signed: Avel Hernandez MD at 16:59 EDT ,
== END | disposition home or self-care (01) ==
PROVIDERS: PCP Family Medicine; Referring Provider Pain Medicine Interventional Pain Medicine; Visit Provider Pain Medicine Interventional Pain Medicine
DX: M43.16 Spondylolisthesis, lumbar region (principal); M51.36 Other intervertebral disc degeneration, lumbar region; M47.816 Spondylosis without myelopathy or radiculopathy, lumbar region
CPT/HCPCS: 72110

== ENCOUNTER → 2021-12-09 | Outpatient (CLI) | payer MEDICARE, OTHER, SELFPAY ==
[2021-05-29 12:50] VITALS: BMI 25.8
[2021-12-09 07:22] LABS: ALB/GLOB Ratio 1.1 RATIO (0.9-2.4); AST(SGOT) 26 U/L (15-37); Alanine Aminotransfer ALT/SGPT 31 U/L (16-61); Albumin, Serum 3.8 g/dL (3.2-5.0); Alkaline Phosphatase 62 U/L (45-117); Anion Gap 6 (5-15); BUN 21 mg/dL (7-18); BUN/Creat Ratio 18.8 RATIO (10-20); Calcium,Total 8.8 mg/dL (8.5-10.1); Chloride 107 mmol/L (98-107); Creatinine, Serum 1.12 mg/dL (0.70-1.30); EST Glomerular Filtration Rate 69 mL/min (>60); Est Glom Filt Rate - Afr Amer 84 mL/min (>60); Globulin 3.4 g/dL (2.2-4.2); Glucose 98 mg/dL (74-106); Potassium 4.2 mmol/L (3.5-5.1); Protein, Total 7.2 g/dL (6.4-8.2); Sodium Level 142 mmol/L (136-145)
[2021-12-18 11:09] LABS: Testosterone, Free 0.91 ng/dL (5.00-21.00)
[2021-12-18 11:52] LABS: Testosterone, Total 78 ng/dL (264-916)
[2021-12-18 11:53] LABS: Testosterone, % Free 1.17 % (1.50-4.20)
== END | disposition home or self-care (01) ==
LOC: LAB 06:03
PROVIDERS: PCP Family Medicine; Visit Provider Internal Medicine Endocrinology, Diabetes & Metabolism
DX: E29.1 Testicular hypofunction (principal)
CPT/HCPCS: 36415; 80053; 84402; 84403

== ENCOUNTER → 2021-12-21 | Outpatient (CLI) | payer MEDICARE, OTHER, SELFPAY ==
[2021-05-29 12:50] VITALS: BMI 25.8
--- NOTE | 2021-12-21 09:05 | STRESSREP ---
Stress Test Report Exercise myocardial perfusion stress test. 66-year-old man with a history of chest pain. Stress protocol: Resting KG demonstrates normal sinus rhythm with a rate of 59 bpm normal intervals are noted resting blood pressure is 110/64 mmHg. The patient exercised according to regular Lc protocol for total duration of 12 minutes the maximum heart rate attained was 144 bpm which was 94% of max impacted heart rate the maximum workload was 13.4 metabolic equivalents. Patient completed stage IV of the Lc protocol. At rest there were no ST or T wave changes noted suggest ischemia and at peak exercise upsloping ST changes were noted with did not meet the criteria for ischemia. No clinical angina was noted. The peak blood pressure was 170/50 mmHg. Myocardial perfusion protocol. 12.0 mCi of technetium 99m sestamibi was injected. The patient exercised according to regular Lc protocol for total duration of 12 minutes and at peak exercise 36.0 mCi of technetium 99m sestamibi was injected stress images were obtained stress and rest images were reconstructed and compared in the short axis vertical long and horizontal long axis. Gated images were also obtained. Perfusion SPECT analysis: Review of the stress images demonstrate normal uptake of tracer noted in all areas of the myocardium. The resting images similar demonstrate normal uptake of tracer noted in all areas of the myocardium. No reversibility is noted suggest ischemia and no previous infarct is noted. Gated SPECT analysis: The gated ejection fraction is 66%. Conclusion: Normal exercise myocardial perfusion stress test at a high workload. Preserved ejection fraction.
== END | disposition home or self-care (01) ==
LOC: CVS 06:07
PROVIDERS: PCP Family Medicine; Visit Provider Physician Assistant Medical
DX: R07.9 Chest pain, unspecified (principal)
CPT/HCPCS: 78452; 93017; A9500; A4216

== ENCOUNTER → 2022-01-28 | Outpatient (CLI) | payer MEDICARE, OTHER, SELFPAY ==
[2021-05-29 12:50] VITALS: BMI 25.8
--- NOTE | 2022-01-28 17:12 | MRI_ITS ---
EXAM: MR RIGHT UPPER EXTREMITY WITHOUT INTRAVENOUS CONTRAST, SHOULDER CLINICAL INDICATION: Severe pain RIGHt shoulder, NKI TECHNIQUE: Multiplanar and multisequence MR images of the right shoulder without intravenous contrast. This report was created using [employer] report [employer] technology. COMPARISON: None. FINDINGS: TENDONS: SUPRASPINATUS: Full-thickness partial width tearing of the posterior fibers of supraspinatus tendon with failure adjacent to the infiltrate and resultant gap of 8 mm. INFRASPINATUS: Moderate supraspinatus and infraspinatus tendinosis. No infraspinatus tendon tearing. SUBSCAPULARIS: Unremarkable. Intact. TERES MINOR: Unremarkable. Intact. BICEPS BRACHII, LONG HEAD: Long head of the biceps tendon is normal in position and appearance. The extra-articular biceps tendon is in the bicipital groove. LIGAMENTS: GLENOHUMERAL: Glenohumeral ligaments are unremarkable. CORACOACROMIAL: Type II acromion with curved undersurface. No subacromial enthesophyte. No thickening of the coracoacromial ligament. MUSCLES: Muscles are normal. No rotator cuff muscle atrophy. FLUID: Moderate amount of fluid within the subacromial/subdeltoid bursa is compatible with bursitis. Small to moderate glenohumeral joint effusion with synovitis. No intra-articular ossific bodies. CARTILAGE: Unremarkable. Articular cartilage intact. GLENOID LABRUM: No labral tear. BONES/JOINTS: Os acromiale present. Small cyst with adjacent marrow edema at the superolateral humeral head. Rotator interval is unremarkable. No fracture. OTHER SOFT TISSUES: Unremarkable. No rotator interval edema. OTHER FINDINGS: Neurovascular structures are unremarkable. MRI/Upper Ext Joint Only(Routine) IMPRESSION: 1. Full-thickness partial width tearing of the posterior fibers of supraspinatus tendon with failure adjacent to the infiltrate and resultant gap of 8 mm. 2. Os acromiale present which can be associated with impingement. 3. Moderate amount of fluid within the subacromial/subdeltoid bursa is compatible with bursitis. Electronically Signed: Juan Alberto Jamil MD at 22:27 EST Reading Location ID and State: [facility] / [place] Tel , Service support ,
== END | disposition home or self-care (01) ==
LOC: MRI 17:12
PROVIDERS: PCP Family Medicine; Visit Provider Orthopaedic Surgery
DX: M24.811 Other specific joint derangements of right shoulder, not elsewhere classified (principal); M25.511 Pain in right shoulder
CPT/HCPCS: 73221

== ENCOUNTER → 2022-02-01 | Outpatient (CLI) | payer MEDICARE, OTHER, SELFPAY ==
[2021-05-29 12:50] VITALS: BMI 25.8
[2022-02-08 12:08] LABS: Testosterone, Free 19.35 ng/dL (5.00-21.00)
[2022-02-08 12:26] LABS: Testosterone, % Free 2.49 % (1.50-4.20); Testosterone, Total 777 ng/dL (264-916)
== END | disposition home or self-care (01) ==
LOC: LAB 05:59
PROVIDERS: PCP Family Medicine; Referring Provider Internal Medicine Endocrinology, Diabetes & Metabolism; Visit Provider Internal Medicine Endocrinology, Diabetes & Metabolism
DX: E29.1 Testicular hypofunction (principal)
CPT/HCPCS: 36415; 84402; 84403

== ENCOUNTER 2022-03-09 09:00 | Outpatient (RCR) | payer MEDICARE, OTHER, SELFPAY ==
[2021-05-29 12:50] VITALS: BMI 25.8
--- NOTE | 2022-01-14 14:36 | HP.OTEVAL_ITS ---
Patient's Visit Information VAUGHN DINERO is a 66 year old M, referred to Occupational Therapy by ESSENCE THORNE, with a diagnosis of traumatic partial tear of left biceps tendon. Date of Evaluation: 01/11/22 Occupational Therapist: Desirae Mckeon, OTR/Henry, CHT - Subjective This 66 year old male was seen for OT eval with dx of traumatic partial tear of left distal biceps tendon. pt states all he can think of is he possibly did it while throwing a ball to his dog. pt states he waited almost 2 months before seeing the Dr. Pt thinks possible DOI was on Oct. pt underwent sx on 12/28/21 for repair of distal biceps tendon with endbutton. pt arrives with order for [facility] assistive device hinge elbow brace locking at 30-110* increasing 10* each week until full ROM. currently pt is limited with all ADLs and IADLs at this time. pt would like to return to his PLOF. - Pain left UE 4 Pain Intensity Range: 3, 4 - ROM Elbow: right 0/145 left -30/110 Forearm: right WNL left supination 45/pronation 45 ROM Comments: pt demo with limited ROM at this time-with dx and sx precautions - Strength Television Cable Installer: right 100# left NT Lateral Pinch: right 14# left NT Tripod Pinch: right 10# left NT Strength Comments: will test later date - Sensation Sensation Comments: tingling in LF and thumb with pain at times - Quick DASH-Disab of Arm,Shoulder& Hand Quick DASH Score: 79.5450 - Goals Goal:100% adherence to protocol: Yes Comment: Distal biceps repair guidelines Goal:Daily scar massage when approriate: Yes Goal:ROM equal to unaffected hand: Yes Goal:Television Cable Installer/Pinch strength at least 75% of unaffected hand: Yes Comment: not initiated until cleared by Goal:No pain with affected hand use: Yes Goal:Full use of affected hand in daily activities including: Yes - Rehabilitation General Assessment: Pt arrives s/p 2 weeks from distal bicep tendon repair with endbutton- in need of hinge elbow brace placing it at 30-110* (instructed to increase by 10* each week until full ROM) pt instructed to limit forearm supination and pronation based on order and repair precautions. PT demo understanding and agree to precautions- due to limited use of left UE and increase need of assistance with ADLs and IADLs pt would benefit from skilled OT services- pt agreed to sessions every other week for 12 weeks- to assist pt in returning to his PLOF. pt demo understanding and agree to POC. Rehabilitation Potential: Excellent - Anticipated Interventions A/AAROM/PROM, Strengthening, Edema Control, Scar Care, Triggerpoint Release, Modalities, Orthoses, Joint Protection/Energy Conservation, Ergonomic Education, Education re assistive Equipment, Education re Diagnosis, Home Program - Visit Plan Frequency: Every Other Week Duration: 2 Months General Plan: pt placed in hinge elbow brace 30-110* instructed pt in limited forearm pronation/supination per order-. pt instructed in edema control- scar mtg. and ROM of elbow in instructed ROM. pt demo understanding. therapist will increase hinge elbow brace as instructed by order-. will not initiate strengthening until cleared by TEXT: Thank you for the opportunity to evaluate your patient. For Medicare and Medicare HMO plans, please review the plan of care and approve it. It will need to be FAXED BACK to us at [phone] for Medicare purposes. Please let me know if there are questions or concerns regarding this plan of care. Physician Signature: Date:
--- NOTE | 2022-02-08 12:55 | HP.OTREVAL ---
ESSENCE THORNE, It has been my pleasure to treat VAUGHN DINERO over the last 3 visits for traumatic partial tear of left biceps tendon. Please see the progress note below for an update on the occupational therapy plan of care! Subjective: pt arrives to OT 6 weeks s/p from distal biceps tendon repair. pt feels he is doing well-. no concerns at this time. Objective/Function: left elbow +5/140. left forearm supination 70*. pt is performing his AROM ex,. scar mtg. and has initiated photographic platemaker strengthening. and isometric wrist flex/ext. pt in hinge brace at all times. Plan Frequency: Every Other Week Duration: 2 Months Visits in this POC: 12 Plan: will work on light photographic platemaker until cleared by to initiate biceps strengthening. Goals - Goals Patient Goals: Regain Mobility, Regain Strength, Decrease Pain, Use Hand/Wrist/Arm Normally Again Goal:100% adherence to protocol: Yes Goal:Daily scar massage when approriate: Yes Goal:ROM equal to unaffected hand: Yes Goal:Investigator Utility Bill Complaints/Pinch strength at least 75% of unaffected hand: Yes Goal:No pain with affected hand use: Yes Goal:Full use of affected hand in daily activities including: Yes Anticipated Interventions Anticipated Interventions: A/AAROM/PROM, Strengthening, Edema Control, Scar Care, Triggerpoint Release, Modalities, Orthoses, Joint Protection/Energy Conservation, Ergonomic Education, Education re assistive Equipment, Education re Diagnosis, Home Program Please do not hesitate to contact me at [phone] by phone or if you have questions or concerns regarding this new plan of care! Sincerely, Desirae Mckeon, OTR/L, CHT
--- NOTE | 2022-03-10 07:48 | OTREVAL_ITS ---
ESSENCE THORNE, It has been my pleasure to treat VAUGHN DINERO over the last 5 visits for traumatic partial tear of left biceps tendon. Please see the progress note below for an update on the occupational therapy plan of care! Subjective: Pt arrives 10 weeks and 2 days s/p from distal biceps repair. pt reports he is out of brace all the time. no issues with pain. able to perform all ADLs and IADLs without assistance. Objective/Function: left ultrasound technician strength 85# right is 100#. left lateral pinch 12#. left tripod 10#. left elbow +5/140. left forearm supination 75. pt demo ROM WNL following a distal biceps repair. pt advised to stay with 5# restriction until he is at 16 weeks s/p. pt ed. to watch with full use of is le ft UE for 6 month. pt also ed. not to lift items out in front of pt. to keep items close. pt demo understanding and agree to POC. Plan Visits in this POC: 12 Plan: pt to continue with HEP, contact therapist with questions or concerns as needed. return to follow up with in Apr. Goals - Goals Patient Goals: Regain Mobility, Regain Strength, Decrease Pain, Use Hand/Wrist/Arm Normally Again Goal:100% adherence to protocol: Yes Goal:Daily scar massage when approriate: Yes Goal:ROM equal to unaffected hand: Yes Goal:In Flight Refueling Craftsman/Pinch strength at least 75% of unaffected hand: Yes Goal:No pain with affected hand use: Yes Goal:Full use of affected hand in daily activities including: Yes Anticipated Interventions Anticipated Interventions: A/AAROM/PROM, Strengthening, Edema Control, Scar Care, Triggerpoint Release, Modalities, Orthoses, Joint Protection/Energy Conservation, Ergonomic Education, Education re assistive Equipment, Education re Diagnosis, Home Program Please do not hesitate to contact me at [phone] by phone or if you have questions or concerns regarding this new plan of care! Sincerely, Desirae Mckeon, OTR/L, CHT
--- NOTE | 2022-06-17 07:58 | HP.OTDCSUM_ITS ---
It has been my pleasure to treat VAUGHN DINERO under orders from ESSENCE THORNE, for the diagnosis of traumatic partial tear of left biceps tendon for a total of 5 visit(s). Please see the following information for a summary of their discharge status. pt last seen 03/09/22, pt progressing well- pt has not scheduled further apts. pt d/c at this time. % Improvement: 80 Objective/Function: left missile inspector preflight strength 85# right is 100#. left lateral pinch 12#. left tripod 10#. left elbow +5/140. left forearm supination 75. pt demo ROM WNL following a distal biceps repair. pt advised to stay with 5# restriction until he is at 16 weeks s/p. pt ed. to watch with full use of is left UE for 6 month. pt also ed. not to lift items out in front of pt. to keep items close. pt demo understanding and agree to POC. Patient Goals: Regain Mobility, Regain Strength, Decrease Pain, Use Hand/Wrist/Arm Normally Again Goal:100% adherence to protocol: Yes Goal:Daily scar massage when approriate: Yes Goal:ROM equal to unaffected hand: Yes Goal:Account Leader/Pinch strength at least 75% of unaffected hand: Yes Goal:No pain with affected hand use: Yes Goal:Full use of affected hand in daily activities including: Yes Plan: pt to continue with HEP, contact therapist with questions or concerns as needed. return to follow up with in Apr. If there are questions or concerns regarding this patient's occupational therapy, please fell free to call me at [phone]. Thank you for the referral of this patient. Sincerely, Desirae Mckeon, OTR/L, CHT
== END 2022-03-09 19:00 | disposition home or self-care (01) ==
LOC: OT 09:00
PROVIDERS: PCP Family Medicine
DX: S46.212A Strain of muscle, fascia and tendon of other parts of biceps, left arm, initial encounter (principal)
CPT/HCPCS: 97110; 97140; 97166; 97530

== ENCOUNTER → 2022-04-08 | Outpatient (CLI) | payer MEDICARE, OTHER, SELFPAY ==
[2021-05-29 12:50] VITALS: BMI 25.8
[2022-04-08 06:42] LABS: Absolute Lymphocyte Count 1.04 X10^3/uL (0.83-4.51); Absolute Neutrophil Count 2.8 X10^3/uL (2.0-7.7); Basophil# 0.03 X10^3/uL; Basophil% 0.7 % (0-1); Eosinophil# 0.09 X10^3/uL; Eosinophils% 2.1 % (0-5); Hematocrit 40.1 % (40-54); Lymphocyte # 1.04 X10^3/ul (0.83-4.51); Lymphocyte % 24.2 % (19-41); Mean Corp Hgb Conc 32.4 g/dL (32-36); Mean Corpuscular Hgb 29.1 pg (27.0-32.0); Mean Corpuscular Volume 89.7 fL (80-94); Mean Platelet Vol. 9.5 fl (6.2-12.0); Monocyte# 0.38 X10^3/uL; Monocyte% 8.8 % (0-10); NRBC Flagged by Analyzer 0 % (0-5); Neutrophil # 2.75 X10^3/uL (2.7-7.7); Platelet Count 194 K/mm3 (150-450); RBC Distribution Width CV 13.2 % (11.6-14.6); RBC Distribution Width SD 43.6 fl (35.1-43.9); Red Blood Count 4.47 M/mm3 (4.6-6.2); White Blood Count 4.3 K/mm3 (4.4-11.0)
[2022-04-08 07:18] LABS: AST(SGOT) 25 U/L (15-37); Alanine Aminotransfer ALT/SGPT 25 U/L (16-61); Albumin, Serum 3.2 g/dL (3.2-5.0); Alkaline Phosphatase 56 U/L (45-117); Anion Gap 5 (5-15); BUN 11 mg/dL (7-18); BUN/Creat Ratio 11.4 RATIO (10-20); Bilirubin, Direct 0.14 mg/dL (0.00-0.30); Calcium,Total 8.3 mg/dL (8.5-10.1); Chloride 105 mmol/L (98-107); Cholesterol 137 mg/dL (200); Creatinine, Serum 0.97 mg/dL (0.70-1.30); EST Glomerular Filtration Rate 82 mL/min (>60); Est Glom Filt Rate - Afr Amer 99 mL/min (>60); Globulin 3.1 g/dL (2.2-4.2); Glucose 118 mg/dL (74-106); High Density Lipoprotein 66 mg/dL; PSA,Total - Annual Screen 0.55 ng/mL (0.00-4.00); Protein, Total 6.3 g/dL (6.4-8.2); Sodium Level 140 mmol/L (136-145); Thyroid Stim Hormone (TSH) 1.17 uIU/mL (0.358-3.74); Triglycerides 63 mg/dL; Very Low Density Lipoprotein 13 mg/dL (5-40)
[2022-04-13 13:07] LABS: Testosterone, Free 50.16 ng/dL (5.00-21.00)
[2022-04-13 20:22] LABS: Testosterone, % Free 3.51 % (1.50-4.20); Testosterone, Total 1429 ng/dL (264-916)
== END | disposition home or self-care (01) ==
PROVIDERS: Physician Assistant Medical; PCP Family Medicine; Referring Provider Internal Medicine Endocrinology, Diabetes & Metabolism; Visit Provider Internal Medicine Endocrinology, Diabetes & Metabolism
DX: E04.0 Nontoxic diffuse goiter (principal); E78.2 Mixed hyperlipidemia; N42.9 Disorder of prostate, unspecified; Z12.5 Encounter for screening for malignant neoplasm of prostate
CPT/HCPCS: 36415; 80053; 80061; 82248; 84153; 84402; 84403; 84443; 85025; G0103

== ENCOUNTER → 2022-04-12 | Outpatient (CLI) | payer MEDICARE, OTHER, SELFPAY ==
[2021-05-29 12:50] VITALS: BMI 25.8
--- NOTE | 2022-04-10 12:48 | MRI_ITS ---
EXAM: MR LEFT LOWER EXTREMITY WITHOUT INTRAVENOUS CONTRAST, KNEE CLINICAL INDICATION: LEFT knee pain TECHNIQUE: Multiplanar and multisequence MR images of the left knee without intravenous contrast. This report was created using [employer] report generation technology. COMPARISON: X-ray 03/19/2022. FINDINGS: BONES/JOINTS: Moderate narrowing of the patellofemoral joint. Bone contusions in the patella and anterolateral femoral condyle. Marrow signal is otherwise normal. No demonstrated fracture. EXTENSOR MECHANISM: Unremarkable. MEDIAL MENISCUS: 6 mm tear of the posterior horn-body junction of the medial meniscus extending to the inferior articular surface. LATERAL MENISCUS: Unremarkable. MEDIAL CAPSULE/SUPPORTING STRUCTURES: Unremarkable. Intact. LATERAL CAPSULE/SUPPORTING STRUCTURES: Unremarkable. Intact. ANTERIOR CRUCIATE LIGAMENT: Intact. POSTERIOR CRUCIATE LIGAMENT: Intact. MUSCLES: Unremarkable. CARTILAGE: 2 x 0.8 cm anterolateral femoral cartilage tear. Medial and lateral compartment cartilage is intact. FLUID: Small joint effusion. OTHER SOFT TISSUES: Soft tissue edema in the infrapatellar fat pad consistent with trauma. MRI/Lower Ext Joint Only (Routine) IMPRESSION: Anterolateral femoral cartilage tear. Medial meniscal tear. Patellofemoral bone contusions. Small joint effusion. Electronically Signed: Lisa Fay MD at 16:29 EST Reading Location ID and State: [id number] / Tel , Service support ,
== END | disposition home or self-care (01) ==
LOC: MRI 09:08
PROVIDERS: PCP Family Medicine; Visit Provider Orthopaedic Surgery
DX: S83.242A Other tear of medial meniscus, current injury, left knee, initial encounter (principal); X58.XXXA Exposure to other specified factors, initial encounter
CPT/HCPCS: 73721

== ENCOUNTER → 2022-04-14 | Outpatient (CLI) | payer MEDICARE, OTHER, SELFPAY ==
[2021-05-29 12:50] VITALS: BMI 25.8
[2022-04-14 17:30] LABS: ALB/GLOB Ratio 1.2 RATIO (0.9-2.4); AST(SGOT) 30 U/L (15-37); Alanine Aminotransfer ALT/SGPT 27 U/L (16-61); Albumin, Serum 3.7 g/dL (3.2-5.0); Alkaline Phosphatase 56 U/L (45-117); Anion Gap 5 (5-15); BUN 9 mg/dL (7-18); CPK Total, Creatine Kinase 88 U/L (39-308); Calcium,Total 8.7 mg/dL (8.5-10.1); Chloride 104 mmol/L (98-107); Creatinine, Serum 1.49 mg/dL (0.70-1.30); EST Glomerular Filtration Rate 50 mL/min (>60); Est Glom Filt Rate - Afr Amer 60 mL/min (>60); Globulin 3.2 g/dL (2.2-4.2); Glucose 100 mg/dL (74-106); Protein, Total 6.9 g/dL (6.4-8.2); Sodium Level 140 mmol/L (136-145)
== END | disposition home or self-care (01) ==
LOC: LAB 16:48
PROVIDERS: PCP Family Medicine; Referring Provider Internal Medicine Endocrinology, Diabetes & Metabolism; Visit Provider Internal Medicine Endocrinology, Diabetes & Metabolism
DX: E29.1 Testicular hypofunction (principal); M79.606 Pain in leg, unspecified
CPT/HCPCS: 36415; 80053; 82550

== ENCOUNTER → 2022-04-15 | Outpatient (CLI) | payer MEDICARE, OTHER, SELFPAY ==
[2021-05-29 12:50] VITALS: BMI 25.8
--- NOTE | 2022-04-15 13:50 | VDLE_ITS ---
Reason For Study: edema RIGHT LEFT GSV is normal. GSV is normal. CFV is compressible, spontaneous, phasic, CFV is compressible, spontaneous, phasic, competent and demonstrates normal competent, and demonstrates normal augmentation. augmentation. FV is compressible, spontaneous, phasic, FV is compressible, spontaneous, phasic, competent and demonstrates normal competent and demonstrates normal augmentation. augmentation. POP V is compressible, spontaneous, phasic, POP V is compressible, spontaneous, phasic, competent and demonstrates normal competent and demonstrates normal augmentation. augmentation. T/P Trunk is compressible. T/P Trunk is compressible. PTV is compressible. PTV is compressible. RT PerV is compressible. LT PerV is compressible. Procedure Heterogeneous area in the left gastroc muscle This is a venous duplex using B-mode, color measuring 1.07 x 2.41 x 4.53 cm. Area is flow and spectral Doppler. nonvascular. Exam performed in department. The exam was diagnostic. A preliminary report was called and/or faxed to Dr. Krause. VL/Venous Duplex US - Elliot Extrem Interpretation Summary Deep veins of the lower extremities are bilaterally patent and compressible seg mentally. There is no evidence of deep vein thrombosis on either side. Valvular competence appears in tact within the proximal deep venous systems bilaterally. The great saphenous veins appear bila terally patent and compressible segmentally. A heterogeneous area is noted in the left gastrocnemi us muscle, measuring 1.07 cm x 2.41 cm x 4.53 cm. This may represent a hematoma or seroma. Clinical correlation is advised. Ordering Physician: Tito Krause Performed By: Ray Bush RVT
== END | disposition home or self-care (01) ==
LOC: CVS 13:49
PROVIDERS: PCP Family Medicine; Referring Provider Internal Medicine Endocrinology, Diabetes & Metabolism; Visit Provider Internal Medicine Endocrinology, Diabetes & Metabolism
DX: M79.606 Pain in leg, unspecified (principal); R60.0 Localized edema
CPT/HCPCS: 93970

== ENCOUNTER → 2022-04-19 | Outpatient (CLI) | payer MEDICARE, OTHER, SELFPAY ==
[2021-05-29 12:50] VITALS: BMI 25.8
[2022-04-22 11:09] LABS: Testosterone, Free 24.63 ng/dL (5.00-21.00)
[2022-04-22 17:46] LABS: Testosterone, % Free 2.33 % (1.50-4.20); Testosterone, Total 1057 ng/dL (264-916)
== END | disposition home or self-care (01) ==
PROVIDERS: PCP Family Medicine
DX: E29.1 Testicular hypofunction (principal)
CPT/HCPCS: 36415; 84402; 84403

== ENCOUNTER → 2022-04-29 | Outpatient (CLI) | payer MEDICARE, OTHER, SELFPAY ==
[2021-05-29 12:50] VITALS: BMI 25.8
--- NOTE | 2022-04-29 16:37 | MRI_ITS ---
EXAM: MR lumbar spine. HISTORY: DDD TECHNIQUE: MR Spine Lumbar W/O Contrast COMPARISON: Lumbar spine radiographs of 12/07/2021. LIMITATIONS: None. ALIGNMENT: Slight degenerative anterolisthesis of L4 on L5 again noted. VERTEBRAL BODIES: No compression fracture or metastatic lesions. Rudimentary disc space is again noted at S1/2. Endplate degenerative changes are present, greatest at the L5/S1 and L1/2 levels. DISC SPACES: T11-12 T12-L1: No disc abnormality, spinal canal, foraminal, or lateral recess stenosis. L1-L2: Disc degeneration/dehydration. Endplate degenerative changes with marginal osteophytes. Mild disc space narrowing. Mild broad-based annular bulging. No significant neural foraminal encroachment. L2-L3: Disc degeneration/dehydration with moderate disc space narrowing, marginal osteophytes and minimal endplate degenerative changes. Broad-based annular bulging, mildly narrowing the inferior neural foramina and minimally flattening the ventral aspect of the thecal sac. L3-L4: Disc degeneration/dehydration with minimal marginal osteophytes. Moderate broad-based annular bulging which moderately flattens the ventral aspect of the thecal sac; thecal sac has a triangular configuration at this level due to annular bulging and ligamentum flavum hypertrophy, with AP diameter of the thecal sac measuring 14 mm. The annular bulge mildly narrows the inferior neural foramina. L4-L5: Disc degeneration/dehydration with minimal marginal osteophytes. Thecal sac stenosis at this level due to moderate broad-based annular bulging, mild anterolisthesis of L4 on L5, ligamentum flavum hypertrophy and facet hypertrophy; AP diameter of the thecal sac measures 6 mm. There is moderate bilateral neural foraminal encroachment due to annular bulging and facet hypertrophy. L5-S1: Disc degeneration/dehydration with disc space narrowing, marginal osteophytes and endplate degenerative changes. Moderate broad-based annular bulging at this level, extending into the presacral fat and mildly flattening the ventral aspect of the thecal sac. Moderately severe bilateral neural foraminal encroachment at this level due to annular bulging, ligamentum flavum hypertrophy and facet hypertrophy, greater on the left. Thecal sac measures 13 mm in AP diameter at this level. CONUS MEDULLARIS: Nerve roots within the cauda equina do not appear abnormally thickened or clumped. No abnormal epidural fluid collection is seen on this nonenhanced scan. POSTERIOR ELEMENTS: Extensive lumbar facet arthritis. SOFT TISSUES: No paraspinal soft tissue swelling. The psoas muscles are symmetric. Visualized abdominal aorta is normal in caliber. No hydronephrosis is noted. OTHER: No disc extrusion. CONCLUSION: Multilevel lumbar degenerative disc disease with facet hypertrophy. Thecal sac stenosis at the L4/5 level due to broad-based annular bulging, ligamentum flavum hypertrophy, facet hypertrophy and slight anterolisthesis of L4 on L5. Electronically Signed: Juan Antonio Leone MD at 22:41 EST , MRI/Spine Lumbar (Routine) IMPRESSION: undefined
== END | disposition home or self-care (01) ==
LOC: MRI 16:30
PROVIDERS: PCP Family Medicine; Visit Provider Pain Medicine Interventional Pain Medicine
DX: M51.36 Other intervertebral disc degeneration, lumbar region (principal)
CPT/HCPCS: 72148

== ENCOUNTER → 2022-05-17 | Outpatient (CLI) | payer MEDICARE, OTHER, SELFPAY ==
[2021-05-29 12:50] VITALS: BMI 25.8
[2022-05-17 13:19] LABS: Anion Gap 5 (5-15); BUN 11 mg/dL (7-18); BUN/Creat Ratio 9.8 RATIO (10-20); Chloride 104 mmol/L (98-107); Creatinine, Serum 1.12 mg/dL (0.70-1.30); EST Glomerular Filtration Rate 69 mL/min (>60); Est Glom Filt Rate - Afr Amer 84 mL/min (>60); Glucose 109 mg/dL (74-106); Potassium 4.3 mmol/L (3.5-5.1); Sodium Level 138 mmol/L (136-145)
== END | disposition home or self-care (01) ==
PROVIDERS: PCP Family Medicine; Referring Provider Internal Medicine Endocrinology, Diabetes & Metabolism; Visit Provider Internal Medicine Endocrinology, Diabetes & Metabolism
DX: E29.1 Testicular hypofunction (principal)
CPT/HCPCS: 36415; 80048

== ENCOUNTER → 2022-08-02 | Outpatient (CLI) | payer MEDICARE, OTHER, SELFPAY ==
[2021-05-29 12:50] VITALS: BMI 25.8
[2022-08-02 09:11] LABS: ALB/GLOB Ratio 1.1 RATIO (0.9-2.4); AST(SGOT) 28 U/L (15-37); Alanine Aminotransfer ALT/SGPT 24 U/L (16-61); Albumin, Serum 3.6 g/dL (3.2-5.0); Alkaline Phosphatase 72 U/L (45-117); Anion Gap 6 (5-15); BUN 17 mg/dL (7-18); BUN/Creat Ratio 17.3 RATIO (10-20); CPK Total, Creatine Kinase 80 U/L (39-308); Chloride 105 mmol/L (98-107); Cholesterol 148 mg/dL (200); Creatinine, Serum 0.98 mg/dL (0.70-1.30); EST Glomerular Filtration Rate 81 mL/min (>60); Est Glom Filt Rate - Afr Amer 97 mL/min (>60); Globulin 3.2 g/dL (2.2-4.2); Glucose 94 mg/dL (74-106); High Density Lipoprotein 54 mg/dL; Potassium 4.3 mmol/L (3.5-5.1); Protein, Total 6.8 g/dL (6.4-8.2); Sodium Level 139 mmol/L (136-145); Thyroid Stim Hormone (TSH) 2.52 uIU/mL (0.358-3.74); Triglycerides 92 mg/dL; Very Low Density Lipoprotein 18 mg/dL (5-40)
[2022-08-05 15:08] LABS: Testosterone, % Free 2.22 % (1.50-4.20); Testosterone, Free 4.15 ng/dL (5.00-21.00); Testosterone, Total 187 ng/dL (264-916)
== END | disposition home or self-care (01) ==
LOC: LAB 05:55
PROVIDERS: PCP Family Medicine; Referring Provider Internal Medicine Endocrinology, Diabetes & Metabolism; Visit Provider Internal Medicine Endocrinology, Diabetes & Metabolism
DX: E29.1 Testicular hypofunction (principal); E04.0 Nontoxic diffuse goiter
CPT/HCPCS: 36415; 80053; 80061; 82550; 84402; 84403; 84443

== ENCOUNTER → 2022-11-09 | Outpatient (CLI) | payer MEDICARE, OTHER, SELFPAY ==
[2021-05-29 12:50] VITALS: BMI 25.8
[2022-11-09 15:23] LABS: Erythrocyte Sedimentation Rate 15 mm/hr (0-20)
[2022-11-09 15:41] LABS: Color, Urine Yellow (Yellow); Glucose, Dipstick Normal (Normal); Ketone-Dipstick Negative (Negative); Leukocyte Esterase-Dipstick 25 /ul (Negative); Nitrite-Dipstick Negative (Negative); Occult Blood-Urine Negative /ul (Negative); Protein-Dipstick Negative (Negative); Specific Gravity, Urine 1.025 (1.002-1.030); Urine Bilirubin Dipstick Negative (Negative); Urine Clarity Clear (Clear); Urine Urobilinogen Normal (Normal)
[2022-11-09 16:02] LABS: Anion Gap 6 (5-15); BUN 15 mg/dL (7-18); BUN/Creat Ratio 10.7 RATIO (10-20); CRP 4.97 mg/L (0.0-3.0); Calcium,Total 8.6 mg/dL (8.5-10.1); Chloride 105 mmol/L (98-107); EST Glomerular Filtration Rate 54 mL/min (>60); Est Glom Filt Rate - Afr Amer 65 mL/min (>60); Glucose 110 mg/dL (74-106); Potassium 4.1 mmol/L (3.5-5.1); Rheumatoid Factor < 10.0 IU/mL (<15); Sodium Level 138 mmol/L (136-145)
[2022-11-09 16:09] LABS: Microalbumin,Random Urine 12.5 mg/L (NO RANGE EST.); Microalbumin:Creatinine Ratio 6.2 mg/g CRE (<30 mg/g CRE)
[2022-11-11 12:09] LABS: ANTINUCLEAR ANTIBODIES DIRECT Negative (Negative); CCP IgG Antibodies 8 units (0-19)
== END | disposition home or self-care (01) ==
LOC: BFHLAB 13:16
PROVIDERS: PCP Family Medicine; Referring Provider Family Medicine; Visit Provider Family Medicine
DX: M13.0 Polyarthritis, unspecified (principal); R79.89 Other specified abnormal findings of blood chemistry
CPT/HCPCS: 36415; 80048; 81002; 82043; 82570; 85652; 86038; 86140; 86200; 86225; 86235; 86431

== ENCOUNTER → 2022-11-17 | Outpatient (CLI) | payer MEDICARE, OTHER, SELFPAY ==
[2021-05-29 12:50] VITALS: BMI 25.8
--- NOTE | 2022-11-17 18:25 | US_ITS ---
INDICATION: DISORDER OF KIDNEY EXAMINATION: Ultrasound US Kidney(s) complete (eg, kidneys and bladder) TECHNIQUE: Levi scale and color doppler images were obtained of the kidneys. COMPARISON: CT December 07, 2017. FINDINGS: RIGHT KIDNEY: 10.7 x 1.5 x 5.7 cm. Minimal pelviectasis. 7 mm upper pole calculus with twinkle artifact. No focal cystic or solid renal mass. Perinephric collection is demonstrated. LEFT KIDNEY: 10.7 x 5.5 x 4.7 cm. There is no hydronephrosis. Lower pole 5 mm calculus with twinkle artifact. No focal solid lesion or perinephric collection is demonstrated. Lower pole 9 mm anechoic cyst URINARY BLADDER: Anechoic with prevoid volume 30 mL. Post void volume 12 mL No focal wall thickening. . Nonspecific nonvisualization of the ureters. US/Kidney and Bladder IMPRESSION: Minimal nonspecific prominent right renal pelvis without basilia hydronephrosis Bilateral nonobstructive nephrolithiasis. Small benign left renal cyst. Electronically Signed: Martell Diaz MD at 23:42 EDT ,
== END | disposition home or self-care (01) ==
LOC: US 18:24
PROVIDERS: PCP Family Medicine; Visit Provider Family Medicine
DX: N28.9 Disorder of kidney and ureter, unspecified (principal)
CPT/HCPCS: 76770

== ENCOUNTER → 2022-12-29 | Outpatient (CLI) | payer MEDICARE, OTHER, SELFPAY ==
[2021-05-29 12:50] VITALS: BMI 25.8
[2022-12-29 06:45] LABS: Absolute Lymphocyte Count 1.57 X10^3/uL (0.83-4.51); Absolute Neutrophil Count 1.8 X10^3/uL (2.0-7.7); Basophil# 0.05 X10^3/uL; Basophil% 1.2 % (0-1); Eosinophil# 0.18 X10^3/uL; Eosinophils% 4.5 % (0-5); Hematocrit 42.6 % (40-54); Hemoglobin 13.1 g/dL (13.0-16.5); Lymphocyte # 1.57 X10^3/ul (0.83-4.51); Lymphocyte % 38.9 % (19-41); Mean Corp Hgb Conc 30.8 g/dL (32-36); Mean Corpuscular Hgb 26.3 pg (27.0-32.0); Mean Corpuscular Volume 85.5 fL (80-94); Mean Platelet Vol. 9.6 fl (6.2-12.0); Monocyte# 0.42 X10^3/uL; Monocyte% 10.4 % (0-10); NRBC Flagged by Analyzer 0 % (0-5); Neutrophil # 1.81 X10^3/uL (2.7-7.7); Neutrophil % 44.8 % (47-70); Platelet Count 246 K/mm3 (150-450); RBC Distribution Width CV 15.7 % (11.6-14.6); RBC Distribution Width SD 48.5 fl (35.1-43.9); Red Blood Count 4.98 M/mm3 (4.6-6.2)
[2022-12-29 07:13] LABS: AST(SGOT) 22 U/L (15-37); Alanine Aminotransfer ALT/SGPT 30 U/L (16-61); Albumin, Serum 3.6 g/dL (3.2-5.0); Alkaline Phosphatase 62 U/L (45-117); Anion Gap 2 (5-15); BUN 14 mg/dL (7-18); BUN/Creat Ratio 13.3 RATIO (10-20); Calcium,Total 8.6 mg/dL (8.5-10.1); Chloride 106 mmol/L (98-107); Cholesterol 143 mg/dL (200); Creatinine, Serum 1.05 mg/dL (0.70-1.30); EST Glomerular Filtration Rate 75 mL/min (>60); Est Glom Filt Rate - Afr Amer 90 mL/min (>60); Globulin 3.5 g/dL (2.2-4.2); Glucose 95 mg/dL (74-106); High Density Lipoprotein 63 mg/dL; Potassium 4.4 mmol/L (3.5-5.1); Protein, Total 7.1 g/dL (6.4-8.2); Sodium Level 138 mmol/L (136-145); Triglycerides 95 mg/dL; Very Low Density Lipoprotein 19 mg/dL (5-40)
[2022-12-31 12:09] LABS: Immunoglobulin A 209 mg/dL (61-437); Immunoglobulin G 833 mg/dL (603-1613); Immunoglobulin M 42 mg/dL (20-172); PROEL- A/G Ratio 1.3 (0.7-1.7); PROEL- Albumin 3.7 g/dL (2.9-4.4); PROEL- Alpha-1 Globulin 0.3 g/dL (0.0-0.4); PROEL- Alpha-2 Globulin 0.7 g/dL (0.4-1.0); PROEL- Beta Globulin 1.1 g/dL (0.7-1.3); PROEL- Gamma Globulin 0.9 g/dL (0.4-1.8); PROEL- Globulin, Total 2.9 g/dL (2.2-3.9); PROEL- TOTAL PROTEIN 6.6 g/dL (6.0-8.5); PROEL-M-Spike Not Observed g/dL (Not Observed); PROELU- Alpha-1-Globulin,Ur 3.1 % (.); PROELU- Alpha-2-Globulin,Ur 19.5 % (.); PROELU- Beta Globulin, Ur 37.6 % (.); PROELU- Gamma Globulin, Ur 18.8 % (.); Testosterone, % Free 3.26 % (1.50-4.20); Testosterone, Total > 1500 ng/dL (264-916); Total Protein, Ur 7.2 mg/dL (Not Estab.)
== END | disposition home or self-care (01) ==
LOC: LAB 05:57
PROVIDERS: PCP Family Medicine; Referring Provider Family Medicine; Visit Provider Family Medicine
DX: S00.12XA Contusion of left eyelid and periocular area, initial encounter (principal); R79.89 Other specified abnormal findings of blood chemistry; E55.9 Vitamin D deficiency, unspecified; E78.2 Mixed hyperlipidemia; D64.9 Anemia, unspecified; X58.XXXA Exposure to other specified factors, initial encounter
CPT/HCPCS: 36415; 80053; 80061; 82306; 82784; 84165; 84166; 84402; 84403; 85025; 86334

== ENCOUNTER → 2022-12-30 | Outpatient (CLI) | payer MEDICARE, OTHER, SELFPAY ==
[2021-05-29 12:50] VITALS: BMI 25.8
[2022-12-30 10:13] LABS: 24HR. UA Prot. Total Volume 1800 mL; Urine Protein (24 Hour) 8.5 mg/dL (<11.9)
== END | disposition home or self-care (01) ==
LOC: LABSPEC 08:14
PROVIDERS: PCP Family Medicine; Referring Provider Family Medicine; Visit Provider Family Medicine
DX: S00.12XA Contusion of left eyelid and periocular area, initial encounter (principal); R79.89 Other specified abnormal findings of blood chemistry; X58.XXXA Exposure to other specified factors, initial encounter
CPT/HCPCS: 81050; 84156

== ENCOUNTER → 2023-01-05 | Outpatient (CLI) | payer MEDICARE, OTHER, SELFPAY ==
[2021-05-29 12:50] VITALS: BMI 25.8
[2023-01-05 16:04] LABS: Absolute Lymphocyte Count 0.36 X10^3/uL (0.83-4.51); Absolute Neutrophil Count 5.4 X10^3/uL (2.0-7.7); Basophil# 0.03 X10^3/uL; Basophil% 0.5 % (0-1); Eosinophil# 0.01 X10^3/uL; Eosinophils% 0.2 % (0-5); Hematocrit 41.7 % (40-54); Hemoglobin 13.4 g/dL (13.0-16.5); Lymphocyte # 0.36 X10^3/ul (0.83-4.51); Lymphocyte % 6.1 % (19-41); Mean Corp Hgb Conc 32.1 g/dL (32-36); Mean Corpuscular Hgb 26.9 pg (27.0-32.0); Mean Corpuscular Volume 83.6 fL (80-94); Mean Platelet Vol. 9.9 fl (6.2-12.0); Monocyte# 0.11 X10^3/uL; Monocyte% 1.9 % (0-10); NRBC Flagged by Analyzer 0 % (0-5); Neutrophil # 5.38 X10^3/uL (2.7-7.7); Neutrophil % 91.1 % (47-70); POSITIVE DIFFERENTIAL YES; Platelet Count 222 K/mm3 (150-450); RBC Distribution Width CV 15.7 % (11.6-14.6); RBC Distribution Width SD 46.9 fl (35.1-43.9); Red Blood Count 4.99 M/mm3 (4.6-6.2); White Blood Count 5.9 K/mm3 (4.4-11.0)
[2023-01-05 16:17] LABS: AST(SGOT) 27 U/L (15-37); Alanine Aminotransfer ALT/SGPT 35 U/L (16-61); Albumin, Serum 3.8 g/dL (3.2-5.0); Alkaline Phosphatase 62 U/L (45-117); Anion Gap 4 (5-15); BUN 10 mg/dL (7-18); BUN/Creat Ratio 8.6 RATIO (10-20); Chloride 105 mmol/L (98-107); Creatinine, Serum 1.16 mg/dL (0.70-1.30); Differential Indicated SCAN CRITERIA MET; EST Glomerular Filtration Rate 66 mL/min (>60); Est Glom Filt Rate - Afr Amer 80 mL/min (>60); Globulin 3.7 g/dL (2.2-4.2); Glucose 126 mg/dL (74-106); Protein, Total 7.5 g/dL (6.4-8.2); Rheumatoid Factor < 10.0 IU/mL (<15); Sodium Level 137 mmol/L (136-145)
[2023-01-05 16:40] LABS: Platelet Estimate ADEQUATE (ADEQ)
[2023-01-05 16:41] LABS: Anisocytosis RARE; Microcytosis RARE; Red Cell Morphology N CHROM NORMAL (NORM C&C)
[2023-01-05 16:51] LABS: Hepatitis B Surface Antibody Non-Reactive; Hepatitis B Surface Antigen Non-Reactive (Nonreactive); Hepatitis C Antibody Non-Reactive (Nonreactive)
[2023-01-07 13:07] LABS: CCP IgG Antibodies 5 units (0-19)
== END | disposition home or self-care (01) ==
LOC: MTLAB 12:59
PROVIDERS: PCP Family Medicine; Referring Provider Internal Medicine Rheumatology; Visit Provider Internal Medicine Rheumatology
DX: M06.4 Inflammatory polyarthropathy (principal)
CPT/HCPCS: 36415; 80053; 85025; 86200; 86431; 86706; 86803; 87340

== ENCOUNTER → 2023-02-10 | Outpatient (CLI) | payer MEDICARE, OTHER, SELFPAY ==
[2021-05-29 12:50] VITALS: BMI 25.8
--- NOTE | 2023-02-10 06:24 | ECHOD_ITS ---
Reason For Study: JOHNSON Procedure This was a 2D Doppler, Color Flow transthoracic echocardiogram. Exam performed in department. Left Ventricle Normal LV size. Left ventricular systolic function is normal. The estimated ejection fraction is 60 %. No regional wall motion abnormalities noted. Right Ventricle Normal RV size. Normal systolic function. Atria Normal left atrium. Normal right atrium. Mitral Valve Normal mitral valve. Tricuspid Valve Normal tricuspid valve. Aortic Valve Normal aortic valve. Trisinus/trileaflet aortic valve. Pulmonic Valve Normal pulmonic valve. Great Vessels Normal aortic root. The pulmonary artery is normal size. Normal inferior vena cava. Pericardium/Pleural No pericardial effusion. MMode/2D Measurements & Calculations LVIDd: 4.5 cm IVSd: 0.92 cm Ao root diam: 3.4 cm LVIDs: 2.7 cm LVPWd: 0.89 cm RVDd: 3.6 cm FS: 40.9 % LAV(MOD-bp): 48.7 ml LVAd ap4: 31.6 cm2 LVAd ap2: 29.7 cm2 LAV(MOD-bp) Indexed: 25.5 ml/m2 LVLd ap4: 8.3 cm LVLd ap2: 8.5 cm LAV(MOD-sp2): 47.7 ml EDV(MOD-sp4): 97.7 ml EDV(MOD-sp2): 86.3 ml LAV(MOD-sp4): 46.8 ml EDV(sp4-el): 102.4 ml EDV(sp2-el): 88.2 ml LVAs ap4: 17.1 cm2 LVAs ap2: 16.5 cm2 LVLs ap4: 7.1 cm LVLs ap2: 7.2 cm ESV(MOD-sp4): 35.1 ml ESV(MOD-sp2): 32.5 ml ESV(sp4-el): 35.0 ml ESV(sp2-el): 32.4 ml EF(MOD-sp4): 64.1 % EF(MOD-sp2): 62.4 % EF(sp4-el): 65.8 % SV(MOD-sp4): 62.7 ml SV(MOD-sp2): 53.8 ml SV(sp4-el): 67.4 ml LA dimension(2D): 3.6 cm LA A4 area: 17.4 cm2 RA A4 area: 16.0 cm2 TAPSE: 2.7 cm Time Measurements MV dec time: 0.23 sec Doppler Measurements & Calculations MV E max jonny: 85.8 cm/sec Lat Peak E' Jonny: 11.5 cm/sec Med Peak E' Jonny: 9.0 cm/sec MV A max jonny: 105.9 cm/sec E/E' lat: 7.5 E/E' med: 9.5 MV E/A: 0.81 MV dec slope: 374.4 cm/sec2 Ao V2 max: 167.8 cm/sec LV V1 max: 130.2 cm/sec Ao max P.3 mmHg LV V1 max P.8 mmHg Ao V2 mean: 120.1 cm/sec LV V1 mean P.7 mmHg Ao mean P.5 mmHg LV V1 mean: 90.0 cm/sec Ao V2 VTI: 39.3 cm LV V1 VTI: 27.4 cm AV (velocity ratio): 0.70 PA V2 max: 95.4 cm/sec TR max jonny: 218.0 cm/sec TR max P.0 mmHg ECHO/Echo Complete Interpretation Summary Normal LV size. Left ventricular systolic function is normal. The estimated ejection fraction is 60 %. The global longitudinal strain is normal. The global longitudinal strain = -21. 8 % (normal). Ordering Physician: Cody Ryder Referring Physician: Cody Ryder Performed By: Aixa Hemphill RDCS
--- NOTE | 2023-02-10 18:08 | STRESSREP ---
Stress Test Report Exercise myocardial perfusion stress test. 67-year-old man with a history of dyspnea and coronary artery disease Stress protocol: Resting EKG demonstrates normal sinus rhythm with a rate of 57 bpm resting blood pressure is 138/82 mmHg. The patient exercised according to the regular Lc protocol for a total duration of 12 minutes attaining a maximum heart rate of 136 bpm which was 89% of maximum predicted heart rate; the maximum workload was 13 point metabolic equivalents. At rest there were no ST or T wave changes noted to suggest ischemia and at peak exercise upsloping ST changes only were noted which did not meet the criteria for ischemia. No clinical angina was noted the test was terminated due to the target heart rate being achieved/fatigue. The peak blood pressure was 174/80 mmHg. Rate-pressure product was 23,300. Myocardial perfusion protocol. 11.7 mCi of technetium 99m sestamibi was injected at rest. The patient exercised according to regular Lc protocol for total duration of 12 minutes and at peak exercise 34.1 mCi of technetium 99m sestamibi was injected stress images were obtained stress and rest images were reconstructed in comparing the short axis vertical long and horizontal long axis. Gated images were also obtained. Perfusion SPECT analysis: Review of the stress images demonstrate normal uptake of tracer noted in all areas of the myocardium. The resting images similarly demonstrate normal uptake of tracer noted in all areas of the myocardium. No areas of reversibility are noted to suggest ischemia no previous infarct was noted. Gated SPECT analysis: The gated ejection fraction is 71%. Conclusion: Normal exercise myocardial perfusion stress test at a high workload Preserved ejection fraction.
== END | disposition home or self-care (01) ==
LOC: CVS 06:22
PROVIDERS: PCP Family Medicine; Referring Provider Nurse Practitioner Family; Visit Provider Nurse Practitioner Family
DX: R06.09 Other forms of dyspnea (principal); I25.10 Atherosclerotic heart disease of native coronary artery without angina pectoris; Z95.5 Presence of coronary angioplasty implant and graft
CPT/HCPCS: 78452; 93017; 93306; A9500; A4216

== ENCOUNTER → 2023-02-16 | Outpatient (CLI) | payer MEDICARE, OTHER, SELFPAY ==
[2021-05-29 12:50] VITALS: BMI 25.8
--- NOTE | 2023-02-16 16:16 | MRI_ITS ---
EXAM: MR RIGHT UPPER EXTREMITY WITHOUT INTRAVENOUS CONTRAST, SHOULDER CLINICAL INDICATION: PAIN, limited ROM TECHNIQUE: Multiplanar and multisequence MR images of the right shoulder without intravenous contrast. COMPARISON: December 20, 2022 shoulder radiography FINDINGS: ARTIFACTS: Motion artifact does limit assessment. TENDONS: SUPRASPINATUS: Full-thickness partial width tearing of the supraspinatus tendon adjacent to the footprint with resultant gap of 5 mm. Moderate supraspinatus tendinosis. INFRASPINATUS: Moderate infraspinatus tendinosis without infraspinatus tendon tearing. SUBSCAPULARIS: At least moderate grade partial-thickness tear of the deeper fibers of the superior portion of the subscapularis tendon which allows medial subluxation onto the lesser tubercle of the long head of the biceps tendon. The long head of the biceps tendon is situated within the bicipital groove. TERES MINOR: Unremarkable. Intact. BICEPS BRACHII, LONG HEAD: See above. LIGAMENTS: GLENOHUMERAL: Unremarkable. Intact. MUSCLES: Unremarkable. No rotator cuff muscle atrophy. FLUID: Moderate to large joint effusion with mild synovitis. No definite intra-articular ossific bodies. Moderate to large amount of fluid in the subacromial/subdeltoid bursa is identified. CARTILAGE: Unremarkable. Articular cartilage intact. GLENOID LABRUM: Normal variant attenuated appearance of the anterior superior labrum. No definite labral tear. BONES/JOINTS: Moderate hypertrophic degenerative changes of the acromioclavicular joint with at least moderate mass effect on the underlying soft tissues. Question articular sided at least moderate grade partial-thickness tearing of the anterior fibers of the supraspinatus at the level of the greater tubercle attachment. Subchondral cystic change with immediately surrounding bone marrow edema is seen at the posterior superior humeral head. Type II acromion with curved undersurface. Os acromiale present. No subacromial enthesophyte. OTHER SOFT TISSUES: Unremarkable. No rotator interval edema. MRI/Upper Ext Joint Only(Routine) IMPRESSION: 1. Full-thickness partial width tearing of the supraspinatus tendon adjacent to the footprint with resultant gap of 5 mm. 2. At least moderate grade partial-thickness tear of the deeper fibers of the superior portion of the subscapularis tendon which allows medial subluxation onto the lesser tubercle of the long head of the biceps tendon. 3. Moderate to large amount of fluid in the subacromial/subdeltoid bursa is identified. 4. Os acromiale identified. Electronically Signed: Juan Alberto Jamil MD at 0:12 EST ,
== END | disposition home or self-care (01) ==
PROVIDERS: PCP Family Medicine; Referring Provider Orthopaedic Surgery; Visit Provider Orthopaedic Surgery
DX: M24.811 Other specific joint derangements of right shoulder, not elsewhere classified (principal)
CPT/HCPCS: 73221

== ENCOUNTER 2023-03-15 12:55 | Outpatient (CLI) | payer MEDICARE, OTHER, SELFPAY ==
[2023-03-02 15:44] VITALS: BMI 25.8
--- OUTSIDE RECORDS SUMMARY | 2023-03-15 13:18 | XMS RPT_ITS | CCD ---
Author Name Unknown Address [address] [place] [address] Organization [facility] Care Team Providers Care Head Nurse Name Role Phone Kavya Mccauley Unavailable PAGE, ARCADIO Y Unavailable Unavailable PAGE, ARCADIO Y Unavailable Unavailable GARTHTRUE GAMBLE A Unavailable Unavailable PAGE, ARCADIO Y Unavailable Unavailable JENNIE HAYES Unavailable Unavailable GARTHTRUE GAVIN A Unavailable Unavailable PAGE, ARCADIO Y Unavailable Unavailable PAGE, ARCADIO Y Unavailable Unavailable PAGE, ARCADIO Y Unavailable Unavailable PAGE, ARCADIO Y Unavailable Unavailable Yael WOOD, Nisa Rhodes Unavailable See CLIFTON, Cody Proctor Unavailable Allergies Allergy Classification Reported Allergen(s) Allergy Type Date of Onset Reaction(s) Facility (1 source) bee pollen; Translations: [POLLEN] allergy to substance 4 [facility] Work Phone: (3 sources) ketorolac Drug Allergy 4 thoat swelling [facility] Work Phone: (3 sources) Sulfonamides (Antibiotic); Translations: [SULFA] drug allergy 4 lips swelling [facility] Work Phone: (3 sources) tetracycline; Translations: [TETRACYCLINE] Drug Allergy 4 mouth sores [facility] Work Phone: (3 sources) tolmetin Drug Allergy 4 hives [facility] Work Phone: (2 sources) Kingdom Animalia; Translations: [ANIMALS] allergy to substance 0 [facility] Work Phone: (2 sources) Mold Extract; Translations: [MOLD] Drug Allergy 0 [facility] Work Phone: (2 sources) PLANT POLLENS (HAY FEVER); Translations: [PLANT POLLENS (HAY FEVER)] allergy to substance 5 [facility] Work Phone: Medications Completed/Discontinued Medications Medication Drug Class(es) Dates Sig (Normalized) Sig (Original) acetaminophen 325 mg / oxyCODONE hydrochloride 7.5 mg oral tablet (5 sources) Opioid Agonist Start: 10-16-2019 take 1 tablet by mouth every eight hours as needed OXYCODONE-ACETAMIN OPHEN 7.5-325 MG TABS 1 tablet by mouth every eight hours as needed oxycodone-acetamin ophen [id number] Elida Whitehead AT Problems Active Problems Problem Classification Problem Date Documented Date Episodic/Chronic Anxiety disorders (1 source) Anxiety disorder; Translations: [Anxiety disorder, unspecified] Onset: 08-27-2015 08-27-2015 Chronic Diseases of white blood cells (2 sources) Neutropenia; Translations: [Neutropenia, unspecified] Onset: 04-23-2014 06-26-2014 Chronic Esophageal disorders (1 source) Gastroesophageal reflux disease; Translations: [Gastro-esophageal reflux disease without esophagitis] Onset: 06-06-2015 06-08-2015 Chronic Essential hypertension (1 source) Hypertensive disorder; Translations: [Essential (primary) hypertension] Onset: 07-12-2016 07-18-2016 Chronic Neoplasms of unspecified nature or uncertain behavior (2 sources) 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; Translations: [Neoplasm of uncertain behavior of connective and other soft tissue] Onset: 04-10-2021 04-10-2021 Episodic Osteoarthritis (2 sources) Degenerative joint disease involving multiple joints; Translations: [Osteoarthritis of glenohumeral joint] Onset: 12-27-2014 06-08-2015 Chronic Other connective tissue disease (2 sources) History of total knee arthroplasty; Translations: [Presence of right artificial knee joint] Onset: 03-25-2020 03-26-2020 Chronic Other endocrine disorders (2 sources) Hypogonadism; Translations: [Disorder of adrenal gland] Onset: 06-06-2015 06-08-2015 Chronic Other nervous system disorders (2 sources) Spinal cord disease; Translations: [Disease of spinal cord, unspecified] Onset: 01-23-2015 01-23-2015 Chronic Other nutritional; endocrine; and metabolic disorders (1 source) Overweight; Translations: [Overweight] Onset: 07-12-2016 07-12-2016 Chronic Paralysis (1 source) Monoparesis - arm; Translations: [Weakness] Onset: 10-02-2014 10-07-2014 Chronic Spondylosis; intervertebral disc disorders; other back problems (2 sources) Degeneration of lumbar intervertebral disc; Translations: [Cervical radiculopathy] Onset: 10-02-2014 06-08-2015 Chronic Unclassified (1 source) Postoperative physical examination; Translations: [Encounter for other specified surgical aftercare] Onset: 04-05-2016 04-05-2016 Unclassified (1 source) Shoulder Pain / [id number]() Onset: 05-02-2017 Unclassified (1 source) Pain in left shoulder / M25.512(ICD-10) Onset: 05-02-2017 Past or Other Problems Problem Classification Problem Date Documented Da te Episodic/Chronic Headache, including migraine (3 sources) Headache; Translations: [Headache] Onset: 08-18-2015 Resolved: 09-01-2015 08-27-2015 Episodic Other aftercare (1 source) Follow-up orthopedic assessment; Translations: [Encounter for other orthopedic aftercare] Onset: 01-23-2014 01-24-2014 Episodic Other bone disease and musculoskeletal deformities (1 source) Chondromalacia, left knee; Translations: [Chondromalacia, left knee] Onset: 2015 05-01-2015 Episodic Other connective tissue disease (5 sources) Patellar tendinitis, left knee; Translations: [Disorder of rotator cuff] Onset: 05-25-2013 05-01-2015 Episodic Other connective tissue disease (2 sources) H/O: arthrodesis; Translations: [Arthrodesis status] Onset: 01-23-2015 01-23-2015 Episodic Other non-traumatic joint disorders (5 sources) Pain in unspecified shoulder; Translations: [Shoulder joint pain] Onset: 05-25-2013 05-28-2013 Episodic Other non-traumatic joint disorders (2 sources) Swelling of knee joint; Translations: [Effusion, right knee] Onset: 03-25-2020 03-26-2020 Episodic Other upper respiratory infections (1 source) Acute sinusitis; Translations: [Acute sinusitis, unspecified] Onset: 08-29-2014 08-29-2014 Episodic Spondylosis; intervertebral disc disorders; other back problems (4 sources) Spinal stenosis in cervical region; Translations: [Spinal stenosis, cervical region] Onset: 01-23-2015 03-26-2021 Episodic Sprains and strains (1 source) Sprain of unspecified rotator cuff capsule, initial encounter; Translations: [Sprain of unspecified rotator cuff capsule, initial encounter] Onset: 05-25-2013 05-28-2013 Episodic Unclassified (3 sources) Family history of malignant neoplasm of lung; Translations: [Body mass index (BMI) 26.0-26.9, adult] Onset: 07-12-2016 04-23-2014 Episodic Unclassified (1 source) Pain in left shoulder; Translations: [Pain in left shoulder] Onset: 05-02-2017 Unclassified (2 sources) Problem Results Test Name Value Interpretation Reference Range Facil ity Vital Signs Date Time Vital Sign Value Performing Clinician Facility 07-12-2016 08:38-0400 BMI (Body Mass Index) 26.36 kg/m2 [facility] Work Phone: 07-12-2016 08:38-0400 Body Temperature 98 [degF] [facility] Work Phone: 07-12-2016 08:38-0400 Body Temperature 98.01 [degF] [facility] Work Phone: 07-12-2016 08:38-0400 BP Diastolic 75 mm[Hg] [facility] Work Phone: 07-12-2016 08:38-0400 BP Systolic 135 mm[Hg] [facility] Work Phone: 07-12-2016 08:38-0400 [facility] Work Phone: 07-12-2016 08:38-0400 Pulse (Heart Rate) 75 /min [facility] enter [facility] Work Phone: 07-12-2016 08:38-0400 Respiratory Rate 16 /min [facility] [address] [facility] Work Phone: 07-12-2016 08:38-0400 [facility] 84.55 [facility] Work Phone: 09-16-2015 10:27-0400 BSA (Body Surface Area) 2.12 m2 [facility] Work Phone: NEGATED: Highlighted [id number] 08:26-0400 Body height 175.26 cm Salud Zivitaliy AT [facility] Work Phone: NEGATED: Highlighted [id number] 08:26-0400 Body height 175 cm Salud Ziats AT [facility] Work Phone: NEGATED: Highlighted [id number] 08:26-0400 Body mass index (BMI) [Ratio] 23.71 kg/m2 Salud Ziats AT [facility] Work Phone: NEGATED: Highlighted [id number] 08:26-0400 Body weight 72.58 kg Salud Ziats AT [facility] Work Phone: NEGATED: Highlighted [id number] 08:26-0400 Body weight 73 kg Salud Ziats AT [facility] Work Phone: NEGATED: Highlighted [id number] 09:16-0500 Body height 175.26 cm Florence Torres LPN [facility] Work Phone: NEGATED: Highlighted [id number] 09:16-0500 Body height 175 cm Florence Torres LPN [facility] Work Phone: NEGATED: Highlighted [id number] 09:16-0500 Body mass index (BMI) [Ratio] 23.71 kg/m2 Florence Torres LPN [facility] Work Phone: NEGATED: Highlighted [id number] 09:16-0500 Body weight 72.58 kg Florence Torres LPN [facility] Work Phone: NEGATED: Highlighted [id number] 09:16-0500 Body weight 73 kg Florence Torres LPN [facility] Work Phone: Encounters Encounter Date Encounter Type Care Provider Facility Start: 07-03-2021 End: 07-03-2021 Ot evaluation Cody Cui MD Work Phone: [facility] Work Phone: Start: 05-22-2021 End: 05-22-2021 Ot evaluation Nisa Conley PA-C Work Phone: [facility] Work Phone: Start: 05-02-2017 Ambulatory [place] [facility] [place] Start: 03-23-2017 Ambulatory [facility]IO [facility] [place] Start: 09-22-2016 Ambulatory ARCADIO Y [place] Procedures Date Procedure Procedure Detail Performing Clinician Start: 07-03-2021 End: 07-03-2021 BP scrn no perf at interval Cody tariq MD Work Phone: Start: 07-03-2021 End: 07-03-2021 Calc BMI norm parameters Cody Cui MD Work Phone: Start: 07-03-2021 End: 07-03-2021 Current tobacco non-user cad cap copd pv dm Cody Cui MD Work Phone: Start: 07-03-2021 End: 07-03-2021 Docrev cur meds by cori iverson MD Work Phone: Start: 07-03-2021 End: 07-03-2021 No doc of pain Cody Cui MD Work Phone: Start: 07-03-2021 End: 07-03-2021 Patient encounter procedure Cody tariq MD Work Phone: Start: 05-22-2021 End: 05-22-2021 BP scrn no perf at interval Nisa B Armst bud PA-C Work Phone: Start: 05-22-2021 End: 05-22-2021 Calc BMI norm parameters Nisa B Armstron g PA-C Work Phone: Start: 05-22-2021 End: 05-22-2021 Current tobacco non-user cad cap copd pv dm Nisa B Conley PA-C Work Phone: Start: 05-22-2021 End: 05-22-2021 Docrev cur meds by cori escobar Nisa B Arms shayy PA-C Work Phone: Start: 05-22-2021 End: 05-22-2021 Pain neg no plan Nisa B Conley PA-C Work Phone: Start: 05-22-2021 End: 05-22-2021 Patient encounter procedure Nisa B Armst bud PA-C Work Phone: Start: 05-22-2021 End: 05-22-2021 WHFO, rigid w/o joints Nisa B Conley PA-C Work Phone: Start: 07-12-2016 End: 08-02-2016 *CBC with Differential Odalis Hobbs NP Work Phone: Start: 07-12-2016 End: 08-02-2016 *CMP Complete Metabolic Panel Odalis garcias [employer] Work Phone: Start: 07-12-2016 End: 08-04-2016 Dehydroepiandrosterone sulfate (DHEA-S) [Mass/volume] in Serum or Plasma Odalis Hobbs [employer] Work Phone: Start: 07-12-2016 End: 08-02-2016 Lipid 1996 panel - Serum or Plasma Odalis Hobbs [employer] Work Phone: Start: 03-24-2016 End: 03-24-2016 *CBC with Differential Christensen Nick Modi Work Phone: Start: 03-24-2016 End: 03-24-2016 *CMP Complete Metabolic Panel Fermin Modi Work Phone: Start: 03-24-2016 End: 03-24-2016 Lactate dehydrogenase [Enzymatic activity/volume] in Serum or Plasma Fermin Modi Work Phone: Start: 03-24-2016 End: 03-24-2016 Urate [Mass/volume] in Serum or Plasma Fermin Modi Work Phone: Start: 03-15-2016 End: 03-24-2016 *CBC with Differential Christensen Nick Alanick Work Phone: Start: 03-15-2016 End: 03-24-2016 *CMP Complete Metabolic Panel Fermin Castillo Alanick Work Phone: Start: 03-15-2016 End: 03-24-2016 Lactate dehydrogenase [Enzymatic activity/volume] in Serum or Plasma Christensen Nick Alanick Work Phone: Start: 03-15-2016 End: 03-24-2016 Urate [Mass/volume] in Serum or Plasma Christensen Nick Alanick Work Phone: Start: 02-18-2016 End: 02-23-2016 Arthrocentesis aspir&/inj major jt/bursa w/o us Jennie Hayes Work Phone: Start: 02-18-2016 End: 03-24-2016 Mri any jt upper extremity w/o contrast matrl Jennie Hayes Work Phone: Start: 11-03-2015 End: 11-14-2015 Arthrocentesis aspir&/inj major jt/bursa w/o us Jennie Hayes Work Phone: Start: 08-18-2015 End: 03-24-2016 Ct head/brain w/o contrast material Anna VOSS-C Work Phone: Start: 08-18-2015 End: 08-19-2015 Erythrocyte sedimentation rate Anna Alexander PA-C Work Phone: Start: 07-23-2015 End: 08-04-2015 Arthrocentesis aspir&/inj major jt/bursa w/o us Jennie Hayes Work Phone: Start: 06-17-2015 End: 09-12-2015 *CBC with Differential Fermin Modi Work Phone: Start: 06-17-2015 End: 06-23-2015 *CMP Complete Metabolic Panel Fermin Modi Work Phone: Start: 06-17-2015 End: 06-23-2015 Lactate dehydrogenase [Enzymatic activity/volume] in Serum or Plasma Fermin Modi Work Phone: Start: 06-17-2015 End: 06-23-2015 Urate [Mass/volume] in Serum or Plasma Fermin Modi Work Phone: Start: 2015 End: 05-01-2015 Arthrocentesis aspir&/inj major jt/bursa w/o us Jennie Hayes Work Phone: Start: 2015 End: 03-24-2016 Radiologic exam knee complete 4/more views Jennie Hayes Work Phone: Start: 03-10-2015 End: 03-18-2015 *CBC with Differential Fermin Modi Work Phone: Start: 03-10-2015 End: 03-18-2015 *CMP Complete Metabolic Panel Fermin Modi Work Phone: Start: 03-10-2015 End: 09-12-2015 *MISC - Miscellaneous Lab Test #1 Fermin Modi Work Phone: Start: 03-10-2015 End: 03-18-2015 Lactate dehydrogenase [Enzymatic activity/volume] in Serum or Plasma Fermin Modi Work Phone: Start: 03-10-2015 End: 03-18-2015 Urate [Mass/volume] in Serum or Plasma Fermin Modi Work Phone: Start: 12-27-2014 End: 12-31-2014 Arthrocentesis aspir&/inj major jt/bursa w/o Dailyevent Preeti Oncothyreon Work Phone: Start: 09-18-2014 End: 09-12-2015 *CBC with Differential Fermin Modi Work Phone: Start: 09-16-2014 End: 09-16-2014 *CBC with Differential Christensen Nick Modi Work Phone: Start: 09-06-2014 End: 09-15-2014 Arthrocentesis aspir&/inj major jt/bursa w/o [facility] Work Phone: Start: 07-02-2014 End: 09-12-2015 *CBC with Differential Fermin Modi Work Phone: Start: 06-19-2014 End: 06-19-2014 *CBC with Differential Christensen Nick Modi Work Phone: Start: 06-19-2014 End: 06-19-2014 *CMP Complete Metabolic Panel Fermin Modi Work Phone: Start: 06-19-2014 End: 06-19-2014 Lactate dehydrogenase [Enzymatic activity/volume] in Serum or Plasma Fermin Modi Work Phone: Start: 06-19-2014 End: 06-19-2014 Urate [Mass/volume] in Serum or Plasma Fermin Modi Work Phone: Start: 05-20-2014 End: 05-21-2014 *CBC with Differential Fermin Modi Work Phone: Start: 03-29-2014 End: 04-02-2014 Arthrocentesis aspir&/inj major jt/bursa w/o Jennie Preeti Tony Work Phone: NEGATED: Highlighted rowStart: 07-03-2021 End: 07-03-2021 Documentation of current medications Salud King AT NEGATED: Highlighted rowStart: 05-22-2021 End: 05-22-2021 Documentation of current medications Florence Brian KIM Plan of Treatment Date Care Activity Detail Author Start: 08-28-2021 End: 08-28-2021 Patient encounter procedure Appointment [facility] Work Phone: Start: 07-03-2021 End: 07-03-2021 Patient encounter procedure Appointment [facility] Work Phone: Start: 05-22-2021 End: 05-22-2021 Patient encounter procedure Appointment [facility] Work Phone: Start: 09-22-2016 End: 09-22-2016 Radex shoulder complete minimum 2 views X-Ray, Shoulder [facility] Work Phone: Start: 09-16-2016 End: 03-24-2016 *CBC with Differential *CBC with Differential [facility] Work Phone: Start: 09-16-2016 End: 03-24-2016 *CMP Complete Metabolic Panel *CMP Complete Metabolic Panel [facility] Work Phone: Start: 09-16-2016 End: 03-24-2016 Lactate dehydrogenase (LDH) *LDH -LDH (Lactate Dehydrogenase) [facility] Work Phone: Start: 09-16-2016 End: 03-24-2016 Urate *Uric Acid Blood [facility] Work Phone: Start: 07-12-2016 End: 08-02-2016 *CBC with Differential *CBC with Differential [facility] Work Phone: Start: 07-12-2016 End: 08-02-2016 *CMP Complete Metabolic Panel *CMP Complete Metabolic Panel [facility] Work Phone: Start: 07-12-2016 End: 07-18-2016 Acth stimulation panel adrenal insufficiency ACTH stimulation panel; for adrenal insufficiency. [facility] Work Phone: Start: 07-12-2016 End: 08-04-2016 Dehydroepiandrosterone sulfate (DHEA-S) *DHEA - DHEA-S (Dehydroepiandrostero ne Sullfate) [facility] Work Phone: Start: 07-12-2016 End: 08-02-2016 Lipid panel [AGGREGATE] *Lipid Profile [facility] Work Phone: Start: 05-03-2016 End: 05-03-2016 Radex shoulder complete minimum 2 views X-Ray, Shoulder [facility] Work Phone: Start: 03-31-2016 End: 03-31-2016 Physical Therapy General Physical Therapy [facility], [address] [place] [address], [id number] [facility] Work Phone: Start: 03-15-2016 End: 03-24-2016 *CBC with Differential *CBC with Differential [facility] Work Phone: Start: 03-15-2016 End: 03-24-2016 *CMP Complete Metabolic Panel *CMP Complete Metabolic Panel [facility] Work Phone: Start: 03-15-2016 End: 03-24-2016 Lactate dehydrogenase (LDH) *LDH -LDH (Lactate Dehydrogenase) [facility] Work Phone: Start: 03-15-2016 End: 03-24-2016 Urate *Uric Acid Blood [facility] Work Phone: Start: 02-18-2016 End: 03-24-2016 Mri any jt upper extremity w/o contrast matrl MRI Joint Upper Extremity [facility] Work Phone: Start: 08-18-2015 End: 03-24-2016 Ct head/brain w/o contrast material CT Head/Brain without contrast [facility] Work Phone: Start: 08-18-2015 End: 08-19-2015 Erythrocyte sedimentation rate *Sedimentation Rate (ESR) [facility] Work Phone: Start: 06-17-2015 End: 09-12-2015 *CBC with Differential *CBC with Differential [facility] Work Phone: Start: 06-17-2015 End: 06-23-2015 *CMP Complete Metabolic Panel *CMP Complete Metabolic Panel [facility] Work Phone: Start: 06-17-2015 End: 06-23-2015 Lactate dehydrogenase (LDH) *LDH -LDH (Lactate Dehydrogenase) [facility] Work Phone: Start: 06-17-2015 End: 06-23-2015 Urate *Uric Acid Blood [facility] Work Phone: Start: 2015 End: 03-24-2016 Radiologic exam knee complete 4/more views X-Ray, Knee [facility] Work Phone: Start: 03-10-2015 End: 03-18-2015 *CBC with Differential *CBC with Differential [facility] Work Phone: Start: 03-10-2015 End: 03-18-2015 *CMP Complete Metabolic Panel *CMP Complete Metabolic Panel [facility] Work Phone: Start: 03-10-2015 End: 09-12-2015 *MISC - Miscellaneous Lab Test #1 *MISC - Miscellaneous Lab Test #1 [facility] Work Phone: Start: 03-10-2015 End: 03-18-2015 Lactate dehydrogenase (LDH) *LDH -LDH (Lactate Dehydrogenase) [facility] Work Phone: Start: 03-10-2015 End: 03-18-2015 Urate *Uric Acid Blood [facility] Work Phone: Start: 10-02-2014 End: 10-07-2014 Mri spinal canal cervical w/o contrast matrl MRI Cervical Spine [facility] Work Phone: Start: 10-02-2014 End: 10-11-2014 Office outpatient visit 25 minutes [id number] Ofc Vst, Est Level IV [facility] Work Phone: Start: 09-19-2014 End: 09-16-2014 *CBC with Differential *CBC with Differential [facility] Work Phone: Start: 09-18-2014 End: 09-12-2015 *CBC with Differential *CBC with Differential [facility] Work Phone: Start: 07-02-2014 End: 09-12-2015 *CBC with Differential *CBC with Differential [facility] Work Phone: Start: 06-21-2014 End: 06-19-2014 Lactate dehydrogenase (LDH) *LDH -LDH (Lactate Dehydrogenase) [facility] Work Phone: Start: 06-20-2014 End: 06-19-2014 *CBC with Differential *CBC with Differential [facility] Work Phone: Start: 06-20-2014 End: 06-19-2014 *CMP Complete Metabolic Panel *CMP Complete Metabolic Panel [facility] Work Phone: Start: 06-20-2014 End: 06-19-2014 Urate *Uric Acid Blood [facility] Work Phone: Start: 05-20-2014 End: 05-21-2014 *CBC with Differential *CBC with Differential [facility] Work Phone: Patient Education WEIGHT%20MANAG EMENT, WEIGHT%20MANAGEMENT [facility] Work Phone: Payers Date Payer Category Payer Unknown [id number] Social History Date Type Detail Facility Start: 05-22-2021 End: 07-03-2021 Assertion Unknown if ever smoked [facility] Work Phone: Evaluation note Note Date & Type Note Facility Evaluation note There may be informa tion available, but it has not been provided by the sender. [facility] Work Phone: Instructions Note Date & Type Note Facility [facility] Work Phone: Instructions Note Date & Type Note Facility [facility] Work Phone: Summary Purpose Family History No Family History Records FoundThere may be information available, but it has not been provided by the sender.There may be information available, but it has not been provided by the sender. Advance Directives No Advanced Directives Records FoundThere may be information available, but it has not been provided by the sender.There may be information available, but it has not been provided by the sender. Chief Complaint Chief Complaint Description Start Date left wrist post EXTENSOR TEN OSYNOVECTOMY LEFT WRIST COMPARTMENTS II II IV; EXCISION NEUROMA POSTERIOR INTEROSSEOUS NERVE AND BURYING IN MUSCLE; ARTHROTOMY WRIST JOINT WITH SYNOVECTOMY; REPAIR EDC TO INDEX LONG AND RING FINGERS; REPAIR EIP on 05/11/2021 Preliminary chief co mplaint data, not yet signed by the author as of Chief Complaint Description Start Date left wrist post EXTENSOR TEN OSYNOVECTOMY LEFT WRIST COMPARTMENTS II II IV; EXCISION NEUROMA POSTERIOR INTEROSSEOUS NERVE AND BURYING IN MUSCLE; ARTHROTOMY WRIST JOINT WITH SYNOVECTOMY; REPAIR EDC TO INDEX LONG AND RING FINGERS; REPAIR EIP on 05/11/2021 Preliminary chief co mplaint data, not yet signed by the author as of Additional Source Comments (unrecognized sect ion and content) No Status Records Found INFORMATION SOURCE (unrecogn ized section and content) Reason for Visit (unrecogniz ed section and content) Reason For Visit Description Start Date Postop - subsequent visit Preliminary reason f or visit data, not yet signed by the author as of left wrist post EXTENSOR TEN OSYNOVECTOMY LEFT WRIST COMPARTMENTS II II IV; EXCISION NEUROMA POSTERIOR INTEROSSEOUS NERVE AND BURYING IN MUSCLE; ARTHROTOMY WRIST JOINT WITH SYNOVECTOMY; REPAIR EDC TO INDEX LONG AND RING FINGERS; REPAIR EIP on 05/11/2021 FOR RECORDS PERTAINING TO PATIENTS WHO ARE OR HAVE BEEN ENROLLED IN A CHEMICAL DEPENDENCY/SUBSTANCEABUSE PROGRAM, SOME INFORMATION MAY BE OMITTED. This clinical summary was aggregated from multiple sources. Caution should be exercised in using it in the provision of clinical care. This summary normalizes information from multiple sources, and as a consequence, information in this document may materially change the coding, format and clinical context of patient data. In addition, data may be omitted in some cases. CLINICAL DECISIONS SHOULD BE BASED ON THE PRIMARY CLINICAL RECORDS. [employer] provides no warranty or guarantee of the accuracy or completeness of information in this document.
[2023-03-15 15:18] LABS: Absolute Lymphocyte Count 1.64 X10^3/uL (0.83-4.51); Absolute Neutrophil Count 2.7 X10^3/uL (2.0-7.7); Basophil# 0.03 X10^3/uL; Basophil% 0.6 % (0-1); Eosinophils% 2.1 % (0-5); Hematocrit 40.8 % (40-54); Hemoglobin 13.5 g/dL (13.0-16.5); Lymphocyte # 1.64 X10^3/ul (0.83-4.51); Lymphocyte % 34.2 % (19-41); Mean Corp Hgb Conc 33.1 g/dL (32-36); Mean Corpuscular Hgb 28.1 pg (27.0-32.0); Mean Platelet Vol. 9.6 fl (6.2-12.0); Monocyte# 0.36 X10^3/uL; Monocyte% 7.5 % (0-10); NRBC Flagged by Analyzer 0 % (0-5); Neutrophil # 2.66 X10^3/uL (2.7-7.7); Neutrophil % 55.4 % (47-70); Platelet Count 224 K/mm3 (150-450); RBC Distribution Width CV 15.8 % (11.6-14.6); RBC Distribution Width SD 48.4 fl (35.1-43.9); White Blood Count 4.8 K/mm3 (4.4-11.0)
[2023-03-15 15:20] LABS: International Normalized Ratio 0.9; Prothrombin Time (Protime)PT. 12.1 SECONDS (11.7-14.9)
[2023-03-15 15:21] LABS: Partial Thromboplast Time 25.9 Seconds (24.1-36.2)
[2023-03-15 15:44] LABS: Vitamin B12 595 pg/mL (211-911)
[2023-03-15 16:05] LABS: ALB/GLOB Ratio 1.3 RATIO (0.9-2.4); AST(SGOT) 32 U/L (15-37); Alanine Aminotransfer ALT/SGPT 38 U/L (16-61); Albumin, Serum 4.1 g/dL (3.2-5.0); Alkaline Phosphatase 56 U/L (45-117); Anion Gap 6 (5-15); BUN 13 mg/dL (7-18); BUN/Creat Ratio 12.5 RATIO (10-20); Calcium,Total 8.7 mg/dL (8.5-10.1); Chloride 105 mmol/L (98-107); Creatinine, Serum 1.04 mg/dL (0.70-1.30); EST Glomerular Filtration Rate 75 mL/min (>60); Est Glom Filt Rate - Afr Amer 91 mL/min (>60); Ferritin 63 ng/mL (26-388); Globulin 3.2 g/dL (2.2-4.2); Glucose 94 mg/dL (74-106); Iron 75 ug/dL (65-175); Iron Binding Capacity,Total 363 ug/dL (250-450); LDH 281 U/L (87-241); PERCENT IRON SATURATION 20.7 % (15.0-55.0); Potassium 4.1 mmol/L (3.5-5.1); Protein, Total 7.3 g/dL (6.4-8.2); Sodium Level 140 mmol/L (136-145)
[2023-03-25 12:09] LABS: Testosterone, % Free 2.33 % (1.50-4.20); Testosterone, Free 9.44 ng/dL (5.00-21.00); Testosterone, Total 405 ng/dL (264-916)
== END 2023-03-15 23:59 | disposition home or self-care (01) ==
LOC: MTLAB 12:57
PROVIDERS: Internal Medicine Medical Oncology; PCP Family Medicine; Referring Provider Nurse Practitioner Family; Visit Provider Nurse Practitioner Family
DX: M06.4 Inflammatory polyarthropathy (principal); D70.9 Neutropenia, unspecified; I21.09 ST elevation (STEMI) myocardial infarction involving other coronary artery of anterior wall; M17.0 Bilateral primary osteoarthritis of knee; Z79.899 Other long term (current) drug therapy; E29.1 Testicular hypofunction; R23.3 Spontaneous ecchymoses; D64.9 Anemia, unspecified; E61.1 Iron deficiency; I25.10 Atherosclerotic heart disease of native coronary artery without angina pectoris
CPT/HCPCS: 36415; 80053; 82607; 82728; 82746; 83540; 83550; 83615; 84402; 84403; 85025; 85610; 85730

== ENCOUNTER → 2023-05-10 | Outpatient (CLI) | payer MEDICARE, OTHER, SELFPAY ==
[2023-03-02 15:44] VITALS: BMI 25.8
[2023-05-10 15:28] LABS: Absolute Lymphocyte Count 0.51 X10^3/uL (0.83-4.51); Absolute Neutrophil Count 4.2 X10^3/uL (2.0-7.7); Basophil# 0.01 X10^3/uL; Basophil% 0.2 % (0-1); Hematocrit 36.6 % (40-54); Hemoglobin 12.4 g/dL (13.0-16.5); Lymphocyte # 0.51 X10^3/ul (0.83-4.51); Lymphocyte % 10.4 % (19-41); Mean Corp Hgb Conc 33.9 g/dL (32-36); Mean Corpuscular Hgb 30.1 pg (27.0-32.0); Mean Corpuscular Volume 88.8 fL (80-94); Mean Platelet Vol. 9.2 fl (6.2-12.0); Monocyte# 0.13 X10^3/uL; Monocyte% 2.7 % (0-10); NRBC Flagged by Analyzer 0 % (0-5); Neutrophil # 4.23 X10^3/uL (2.7-7.7); Neutrophil % 86.5 % (47-70); POSITIVE DIFFERENTIAL YES; Platelet Count 190 K/mm3 (150-450); RBC Distribution Width CV 15.2 % (11.6-14.6); RBC Distribution Width SD 48.6 fl (35.1-43.9); Red Blood Count 4.12 M/mm3 (4.6-6.2); White Blood Count 4.9 K/mm3 (4.4-11.0)
[2023-05-10 16:36] LABS: ALB/GLOB Ratio 1.3 RATIO (0.9-2.4); AST(SGOT) 22 U/L (15-37); Alanine Aminotransfer ALT/SGPT 26 U/L (16-61); Alkaline Phosphatase 55 U/L (45-117); Anion Gap 6 (5-15); BUN 18 mg/dL (7-18); BUN/Creat Ratio 18.3 RATIO (10-20); Calcium,Total 9.2 mg/dL (8.5-10.1); Chloride 107 mmol/L (98-107); Creatinine, Serum 0.98 mg/dL (0.70-1.30); EST Glomerular Filtration Rate 80 mL/min (>60); Est Glom Filt Rate - Afr Amer 97 mL/min (>60); Globulin 3.1 g/dL (2.2-4.2); Glucose 133 mg/dL (74-106); Potassium 4.2 mmol/L (3.5-5.1); Protein, Total 7.1 g/dL (6.4-8.2); Sodium Level 138 mmol/L (136-145)
== END | disposition home or self-care (01) ==
LOC: MTLAB 12:50
PROVIDERS: PCP Family Medicine; Referring Provider Internal Medicine Rheumatology; Visit Provider Internal Medicine Rheumatology
DX: M06.4 Inflammatory polyarthropathy (principal); M17.0 Bilateral primary osteoarthritis of knee; Z79.899 Other long term (current) drug therapy
CPT/HCPCS: 36415; 80053; 85025

== ENCOUNTER → 2023-07-06 | Outpatient (CLI) | payer MEDICARE, OTHER, SELFPAY ==
[2023-03-02 15:44] VITALS: BMI 25.8
[2023-07-06 12:53] LABS: Absolute Lymphocyte Count 0.48 X10^3/uL (0.83-4.51); Absolute Neutrophil Count 3.6 X10^3/uL (2.0-7.7); Basophil# 0.02 X10^3/uL; Basophil% 0.5 % (0-1); Eosinophil# 0.02 X10^3/uL; Eosinophils% 0.5 % (0-5); Hematocrit 36.3 % (40-54); Hemoglobin 12.2 g/dL (13.0-16.5); Lymphocyte # 0.48 X10^3/ul (0.83-4.51); Lymphocyte % 11.2 % (19-41); Mean Corp Hgb Conc 33.6 g/dL (32-36); Mean Corpuscular Volume 92.4 fL (80-94); Mean Platelet Vol. 9.7 fl (6.2-12.0); Monocyte# 0.17 X10^3/uL; NRBC Flagged by Analyzer 0 % (0-5); Neutrophil % 83.6 % (47-70); POSITIVE DIFFERENTIAL YES; Platelet Count 238 K/mm3 (150-450); RBC Distribution Width CV 13.7 % (11.6-14.6); RBC Distribution Width SD 46.3 fl (35.1-43.9); Red Blood Count 3.93 M/mm3 (4.6-6.2); White Blood Count 4.3 K/mm3 (4.4-11.0)
[2023-07-06 13:21] LABS: ALB/GLOB Ratio 1.2 RATIO (0.9-2.4); AST(SGOT) 28 U/L (15-37); Alanine Aminotransfer ALT/SGPT 31 U/L (16-61); Albumin, Serum 3.7 g/dL (3.2-5.0); Alkaline Phosphatase 65 U/L (45-117); Anion Gap 5 (5-15); BUN 12 mg/dL (7-18); BUN/Creat Ratio 10.9 RATIO (10-20); Calcium,Total 9.2 mg/dL (8.5-10.1); Chloride 102 mmol/L (98-107); EST Glomerular Filtration Rate 71 mL/min (>60); Est Glom Filt Rate - Afr Amer 85 mL/min (>60); Globulin 3.1 g/dL (2.2-4.2); Glucose 147 mg/dL (74-106); Potassium 4.2 mmol/L (3.5-5.1); Protein, Total 6.8 g/dL (6.4-8.2); Sodium Level 135 mmol/L (136-145)
== END | disposition home or self-care (01) ==
LOC: MTLAB 09:04
PROVIDERS: PCP Family Medicine; Referring Provider Internal Medicine Rheumatology; Visit Provider Internal Medicine Rheumatology
DX: M06.4 Inflammatory polyarthropathy (principal); M17.0 Bilateral primary osteoarthritis of knee; Z79.899 Other long term (current) drug therapy
CPT/HCPCS: 36415; 80053; 85025

== ENCOUNTER 2023-08-03 08:00 | Outpatient (RCR) | payer MEDICARE, OTHER, SELFPAY ==
[2023-03-02 15:44] VITALS: BMI 25.8
--- NOTE | 2023-04-14 18:41 | HP.PTEVAL ---
Patient's Visit Information Visit Information Visit Information: VAUGHN DINERO is a 67 year old M referred to Physical Therapy by Dr. Deo Buck MD with a diagnosis of R rot cuff repair 03/30/23. Date of Evaluation: 04/14/23 Physical Therapist: Cam Santillan, PT, ATC Visit Plan Frequency: 2-3x /Week Duration: 6-8 weeks Plan: R shoulder phase 1 ex's x 4 weeks, then transition to Phase 2 at 6 week tiesha. Begin strengthening when ordered by surgeon Subjective Subjective: DOS: 03/30/23. Pt reports he has had R shoulder pain for greater than one year. pt notes he had his R rot cuff repaired and a biceps tenodesis performed at that time. Pt reports he is in a sling and has been since the DOS. Pt reports he has been given no HEP at this time and has just been resting his R shoulder. Pt notes he is to follow up with his doctor in 1 month from now. Pt is R hand dominant. Pt denies tingling or numbness in his R UE at this time. Pt reports sleep difficulty at this time secondary to pain. Pt is retired. Pt worked at [employer]. Pt reports he is limited with all ADL's and IADL's at this time. Pt reports R shoulder pain is 2/10 at rest, and 4/10 at worst. Pain R shoulder: Pain Intensity (Out of 10): 2 Pain Intensity Range: 4 Objective Objective: Neuro: B UE sensation is WNL to light touch. Observation: Incisions still healing at this time. No obvious signs of infection. ROM: L shoulder flex= 135, abd= 115, ER= 35, IR= WNL; R shoulder flex= 110, abd= 130 degrees MMT: L shoudler flex= 19, abd= 32, ER= 31, IR= 31 #F; R shoulder not tested. Balance/Special Test Scores Quick DASH Score: 54.5450 Goals Goal 1:: Decrease R shoulder pain x 50% to aid with sleep Goal Time Frame: 6-8 Weeks Goal 2:: Increase R shoulder flex and abduction ROM x 30 degrees to aid with overhead activity Goal Time Frame: 6-8 Weeks Goal 3:: Increase R shoulder strength to 90% L shoulder strength to aid with IADL's Goal Time Frame: 6-8 Weeks Goal 4:: I with HEP Goal Time Frame: 2-4 Weeks Rehabilitation Potential Physical Therapy Diagnosis: R shoulder pain, weakness, and limited ROM secondary to R rot cuff repair Rehabilitation Potential: Good Anticipated Interventions Patient/Client Instruction: Educate patient on: Condition and Plan of Care For the Purpose of:: To improve self management Therapeutic Exercise to Include: Strength training, Endurance training, Flexibilty training, Passive ROM, Active ROM and Scapular Strength/Stabilization For the Purpose of:: To decrease pain, To increase ROM and To improve muscle performance and motor function Cryotherapy (ice pack, ice massage): Yes For the Purpose of:: To decrease pain Text: Thank you for the opportunity to evaluate your patient. For Medicare and Medicare HMO plans, please review the plan of care and approve it. It will need to be FAXED BACK to us at [phone] for Medicare purposes. For Medicare only, by signing this I certify the plan of care. Please let me know if there are questions or concerns regarding this plan of care. Physician Signature: Date:
--- NOTE | 2023-08-03 08:41 | HP.PTDCSUM ---
Discharge Summary D/C summary: It has been my pleasure to treat VAUGHN DINERO referred by Dr. Deo Buck MD, with the diagnosis of R rot cuff repair 03/30/23 for a total of 30 visit(s). Discharge Date: 08/03/23 Please see the following information for a summary of their discharge status. Subjective Subjective: To doctor last week and is doing great, no f/u needed. 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 Pain levels are 0 most of time, 1/10 if works all day. No activitiy avoidance. Retired. Sleep is good. Will continue strength at home. Pain R shoulder: Pain Intensity (Out of 10): 0 Overall Improvement % Improvement: 99 Objective Objective/Function: 155 flexion and 60 er, and thoracic IR. 16# flexion R, 41# IR R and 18# er R Moving well. Goals Goal 1:: Decrease R shoulder pain x 50% to aid with sleep Goal Progress: Goal Met Goal 2:: Increase R shoulder flex and abduction ROM x 30 degrees to aid with overhead activity Goal Progress: Goal Met Goal 3:: Increase R shoulder strength to 90% L shoulder strength to aid with IADL's Goal Progress: Goal Met, except er Goal 4:: I with HEP Goal Progress: Goal Met Plan Plan: d/c to HEP D/C Information Discharge Comments: Doing well. d/c sentence: If there are questions or concerns regarding this patient's physical therapy, please feel free to call me at [phone]. Thank you for the referral of this patient. Sincerely, Yury Contreras, DPT, OCS, CSCS Balance/Gait/Functional tests Balance/Special Test Scores Quick DASH Score: 12.5000 Improvement % Improvement: 99
== END 2023-08-03 19:00 | disposition home or self-care (01) ==
LOC: PT 08:00
PROVIDERS: PCP Family Medicine; Referring Provider Orthopaedic Surgery; Visit Provider Orthopaedic Surgery
DX: S46.011D Strain of muscle(s) and tendon(s) of the rotator cuff of right shoulder, subsequent encounter (principal)
CPT/HCPCS: 97110; 97140; 97161; 97164; 97530

== ENCOUNTER → 2023-09-07 | Outpatient (CLI) | payer MEDICARE, OTHER, SELFPAY ==
[2023-03-02 15:44] VITALS: BMI 25.8
[2023-09-07 08:01] LABS: ALB/GLOB Ratio 1.3 RATIO (0.9-2.4); AST(SGOT) 32 U/L (15-37); Alanine Aminotransfer ALT/SGPT 35 U/L (16-61); Albumin, Serum 3.8 g/dL (3.2-5.0); Alkaline Phosphatase 56 U/L (45-117); Anion Gap 3 (5-15); BUN 13 mg/dL (7-18); BUN/Creat Ratio 12.9 RATIO (10-20); Calcium,Total 8.8 mg/dL (8.5-10.1); Chloride 106 mmol/L (98-107); Creatinine, Serum 1.01 mg/dL (0.70-1.30); EST Glomerular Filtration Rate 78 mL/min (>60); Est Glom Filt Rate - Afr Amer 94 mL/min (>60); Globulin 2.9 g/dL (2.2-4.2); Glucose 99 mg/dL (74-106); Potassium 4.1 mmol/L (3.5-5.1); Protein, Total 6.7 g/dL (6.4-8.2); Sodium Level 138 mmol/L (136-145); Thyroid Stim Hormone (TSH) 2.18 uIU/mL (0.358-3.74)
[2023-09-07 08:31] LABS: Vitamin D,25 Hydroxy 36.8 ng/mL
[2023-09-10 18:08] LABS: Testosterone, % Free 2.98 % (1.50-4.20); Testosterone, Free 9.27 ng/dL (5.00-21.00); Testosterone, Total 311 ng/dL (264-916)
== END | disposition home or self-care (01) ==
PROVIDERS: PCP Family Medicine; Referring Provider Internal Medicine Endocrinology, Diabetes & Metabolism; Visit Provider Internal Medicine Endocrinology, Diabetes & Metabolism
DX: E29.1 Testicular hypofunction (principal); E04.0 Nontoxic diffuse goiter; E55.9 Vitamin D deficiency, unspecified; N42.9 Disorder of prostate, unspecified
CPT/HCPCS: 36415; 80053; 82306; 84153; 84402; 84403; 84443

== ENCOUNTER → 2023-09-13 | Outpatient (CLI) | payer MEDICARE, OTHER, SELFPAY ==
[2023-03-02 15:44] VITALS: BMI 25.8
[2023-09-13 17:45] LABS: Absolute Lymphocyte Count 0.31 X10^3/uL (0.83-4.51); Absolute Neutrophil Count 2.9 X10^3/uL (2.0-7.7); Basophil# 0.01 X10^3/uL; Basophil% 0.3 % (0-1); Hematocrit 33.1 % (40-54); Hemoglobin 11.3 g/dL (13.0-16.5); Lymphocyte # 0.31 X10^3/ul (0.83-4.51); Lymphocyte % 9.1 % (19-41); Mean Corp Hgb Conc 34.1 g/dL (32-36); Mean Corpuscular Hgb 30.5 pg (27.0-32.0); Mean Corpuscular Volume 89.2 fL (80-94); Mean Platelet Vol. 9.6 fl (6.2-12.0); Monocyte# 0.15 X10^3/uL; Monocyte% 4.4 % (0-10); NRBC Flagged by Analyzer 0 % (0-5); Neutrophil # 2.93 X10^3/uL (2.7-7.7); Neutrophil % 85.9 % (47-70); POSITIVE DIFFERENTIAL YES; Platelet Count 208 K/mm3 (150-450); RBC Distribution Width CV 13.7 % (11.6-14.6); RBC Distribution Width SD 44.2 fl (35.1-43.9); Red Blood Count 3.71 M/mm3 (4.6-6.2); White Blood Count 3.4 K/mm3 (4.4-11.0)
[2023-09-13 18:05] LABS: Differential Indicated SCAN CRITERIA MET
[2023-09-13 18:18] LABS: ALB/GLOB Ratio 1.3 RATIO (0.9-2.4); AST(SGOT) 23 U/L (15-37); Alanine Aminotransfer ALT/SGPT 27 U/L (16-61); Albumin, Serum 3.6 g/dL (3.2-5.0); Alkaline Phosphatase 56 U/L (45-117); Anion Gap 7 (5-15); BUN 15 mg/dL (7-18); BUN/Creat Ratio 13.2 RATIO (10-20); Calcium,Total 8.6 mg/dL (8.5-10.1); Chloride 107 mmol/L (98-107); Creatinine, Serum 1.14 mg/dL (0.70-1.30); EST Glomerular Filtration Rate 68 mL/min (>60); Est Glom Filt Rate - Afr Amer 82 mL/min (>60); Globulin 2.7 g/dL (2.2-4.2); Glucose 150 mg/dL (74-106); Potassium 4.5 mmol/L (3.5-5.1); Protein, Total 6.3 g/dL (6.4-8.2); Sodium Level 139 mmol/L (136-145)
[2023-09-13 18:37] LABS: Platelet Estimate ADEQUATE (ADEQ)
[2023-09-13 18:38] LABS: Anisocytosis RARE; Macrocytosis RARE; Red Cell Morphology N CHROM NORMAL (NORM C&C)
== END | disposition home or self-care (01) ==
LOC: MTLAB 14:23
PROVIDERS: PCP Family Medicine; Referring Provider Internal Medicine Rheumatology; Visit Provider Internal Medicine Rheumatology
DX: M06.4 Inflammatory polyarthropathy (principal); Z79.899 Other long term (current) drug therapy
CPT/HCPCS: 36415; 80053; 85025

== ENCOUNTER → 2023-09-14 | Outpatient (CLI) | payer MEDICARE, OTHER, SELFPAY ==
[2023-03-02 15:44] VITALS: BMI 25.8
--- NOTE | 2023-09-14 14:27 | NEURO ---
NCS and/or EMG Patient Report Ordering Doctor: Reginaldo Blank DATE OF SERVICE: 09/14/23 Abhishek presents with complaints of pain in his feet with occasional tingling. Symptoms are worse towards the end of the day. Electrodiagnostic findings: left peroneal motor nerve demonstrates normal distal latency, amplitude and conduction velocity. Right peroneal motor nerve demonstrates normal distal latency, amplitude and conduction velocity. Tibial motor responses are within normal limits bilaterally. Prolonged H?reflex is noted bilaterally. Sensory responses are within normal limits. Needle EMG testing was performed in the lower limbs. All muscles tested showed no evidence of denervation with normal motor unit action potentials. Electrodiagnostic impression:This is a normal electrodiagnostic study of the lower limbs. There is no electrodiagnostic evidence for peripheral polyneuropathy or lumbosacral radiculopathy. Multi Select Codes Neurology Neurology Interp Codes: 02654-39 Musc test done w/n test comp (interp) (2) and 42468-01 Nrv cndj test 9-10 studies (interp)
== END | disposition home or self-care (01) ==
LOC: PSN 12:17
PROVIDERS: PCP Family Medicine; Referring Provider Orthopaedic Surgery; Visit Provider Orthopaedic Surgery
DX: G57.93 Unspecified mononeuropathy of bilateral lower limbs (principal)
CPT/HCPCS: 95886; 95911

== ENCOUNTER → 2023-11-28 | Outpatient (CLI) | payer MEDICARE, OTHER, SELFPAY ==
[2023-03-02 15:44] VITALS: BMI 25.8
[2023-11-28 10:31] LABS: Absolute Lymphocyte Count 0.98 X10^3/uL (0.83-4.51); Basophil# 0.04 X10^3/uL; Basophil% 1.2 % (0-1); Eosinophil# 0.08 X10^3/uL; Eosinophils% 2.4 % (0-5); Hematocrit 34.8 % (40-54); Hemoglobin 11.5 g/dL (13.0-16.5); Lymphocyte # 0.98 X10^3/ul (0.83-4.51); Lymphocyte % 29.2 % (19-41); Mean Corpuscular Hgb 29.5 pg (27.0-32.0); Mean Corpuscular Volume 89.2 fL (80-94); Mean Platelet Vol. 9.6 fl (6.2-12.0); Monocyte% 8.9 % (0-10); NRBC Flagged by Analyzer 0 % (0-5); Neutrophil # 1.95 X10^3/uL (2.7-7.7); Platelet Count 178 K/mm3 (150-450); RBC Distribution Width CV 13.5 % (11.6-14.6); RBC Distribution Width SD 43.7 fl (35.1-43.9); White Blood Count 3.4 K/mm3 (4.4-11.0)
[2023-11-28 11:01] LABS: ALB/GLOB Ratio 1.2 RATIO (0.9-2.4); AST(SGOT) 28 U/L (15-37); Alanine Aminotransfer ALT/SGPT 27 U/L (16-61); Albumin, Serum 3.4 g/dL (3.2-5.0); Alkaline Phosphatase 56 U/L (45-117); Anion Gap 8 (5-15); BUN 12 mg/dL (7-18); BUN/Creat Ratio 9.7 RATIO (10-20); Chloride 104 mmol/L (98-107); Creatinine, Serum 1.24 mg/dL (0.70-1.30); EST Glomerular Filtration Rate 61 mL/min (>60); Est Glom Filt Rate - Afr Amer 74 mL/min (>60); Globulin 2.8 g/dL (2.2-4.2); Glucose 106 mg/dL (74-106); Potassium 3.9 mmol/L (3.5-5.1); Protein, Total 6.2 g/dL (6.4-8.2); Sodium Level 138 mmol/L (136-145)
== END | disposition home or self-care (01) ==
PROVIDERS: Nurse Practitioner Family; PCP Family Medicine; Referring Provider Internal Medicine Rheumatology; Visit Provider Internal Medicine Rheumatology
DX: M06.4 Inflammatory polyarthropathy (principal); Z79.899 Other long term (current) drug therapy
CPT/HCPCS: 36415; 80053; 85025

== ENCOUNTER → 2024-01-06 | Outpatient (CLI) | payer MEDICARE, OTHER, SELFPAY ==
[2023-03-02 15:44] VITALS: BMI 25.8
--- OUTSIDE RECORDS SUMMARY | 2024-01-06 05:59 | XMS RPT_ITS | CCD ---
Author Organization [facility] Care Team Providers Care Printing Supervisor Name Role Phone Kavya Mccauley Dorian Unavailable PAGE, ARCADIO Y Unavailable Unavailable PAGE, ARCADIO Y Unavailable Unavailable FRED, TRUE A Unavailable Unavailable PAGE, ARCADIO Y Unavailable Unavailable JENNIE HAYES Unavailable Unavailable FRED, TRUE A Unavailable Unavailable PAGE, ARCAIDO Y Unavailable Unavailable PAGE, ARCADIO Y Unavailable Unavailable PAGE, ARCADIO Y Unavailable Unavailable PAGE, ARCADIO Y Unavailable Unavailable Yael WOOD, Nisa Rhodes Unavailable [phone] See CLIFTON, Cody Proctor Unavailable [phone] Allergies Allergy Classification Reported Allergen(s) Allergy Type Date of Onset Reaction(s) Facility (1 source) bee pollen; Translations: [POLLEN] allergy to substance 4 [facility] Work Phone: (3 sources) ketorolac Drug Allergy 4 thoat swelling [facility] Work Phone: (3 sources) Sulfonamides (Antibiotic); Translations: [SULFA] drug allergy 4 lips swelling [facility] Work Phone: (3 sources) tetracycline; Translations: [TETRACYCLINE] Drug Allergy 4 mouth sores [facility] Work Phone: (3 sources) tolmetin Drug Allergy 4 hives [facility] Work Phone: (2 sources) Kingdom Animalia; Translations: [ANIMALS] allergy to substance 0 [facility] Work Phone: (2 sources) Mold Extract; Translations: [MOLD] Drug Allergy 0 [facility] Work Phone: (2 sources) PLANT POLLENS (HAY FEVER); Translations: [PLANT POLLENS (HAY FEVER)] allergy to substance 5 [facility] Work Phone: Medications Completed/Discontinued Medications Medication Drug Class(es) Dates Sig (Normalized) Sig (Original) acetaminophen 325 mg / oxyCODONE hydrochloride 7.5 mg oral tablet (5 sources) Opioid Agonist Start: 10-16-2019 take 1 tablet by mouth every eight hours as needed OXYCODONE-ACETAMIN OPHEN 7.5-325 MG TABS 1 tablet by mouth every eight hours as needed oxycodone-acetamin ophen [id number] Elida Whitehead AT Start: 06-06-2015 take 1 tablet by graciela th every six hours as needed PERCOCET 7.5-325 MG TABS take 1 po q6h a s needed OXYCODONE-ACETAMINOPHEN [id number] True Yogesh Fred DO Start: 05-25-2013 End: 06-06-2015 PERCOCET 7.5-325 MG TABS prn OXYCODONE-ACETAMINOPHEN [id number] True A Fred DO 200 actuat albuterol 0.09 mg/actuat metered dose inhaler (1 source) beta2-Adrenergic Agonist Start: 06-06-2015 VENTOLIN HFA 108 (90 Base) MCG/ACT AERS 2 inhalations every 4 hours as needed for shortness of breath or wheezing ALBUTEROL SULFATE [id number] True A Fred DO ALPRAZolam 0.5 mg oral tablet (1 source) Benzodiazepine Start: 08-27-2015 take 1-2 tablets by mouth once daily as needed for anxiety ALPRAZOLAM 0.5 MG TABS 1-2 tablet by mouth daily as needed for anxiety/panic ALPRAZOLAM [id number] True A Fred DO amoxicillin 875 mg / clavulanate 125 mg oral tablet (3 sources) Penicillin-class Antibacterial Start: 11-14-2014 End: 11-24-2014 take 1 tablet by mouth twice daily AUGMENTIN 875-125 MG TABS One tablet by mouth twice daily for 10 days. AMOXICILLIN-POT CLAVULANATE [id number] Fermin Modi Start: 11-14-2014 End: 11-24-2014 take 1 tablet by mouth twice daily AUGMENTIN XR 1000-62.5 MG [id number] One tablet by mouth twice daily for 10 days. AMOXICILLIN-POT CLAVULANATE [id number] Fermin Modi aspirin 81 mg delayed release oral tablet (2 sources) Platelet Aggregation Inhibitor, Nonsteroidal Anti-inflammatory Drug Adult Low Dose Aspirin 81 mg tablet,delayed release (DR/EC) 1 tablet by mouth aspirin [id number] Elida Whitehead AT atorvastatin 40 mg oral tablet (2 sources) HMG-CoA Reductase Inhibitor take 1 tablet by mouth once daily ATORVASTATIN CALCIUM 40 MG TABS 1 tablet by mouth once a day atorvastatin 90085231279 Elida Whitehead AT azithromycin 250 mg oral tablet (5 sources) Macrolide Antimicrobial Start: 016 End: 016 take 2 tablets by mouth once daily, then take 1 tablet by mouth once daily, then take 2-5 tablets by mouth ZITHROMAX 1 GM PACK Two tablets by mouth day one then one tablet by mouth days 2-5 AZITHROMYCIN [id number] Christensentena Modi Start: 07-10-2015 End: 08-18-2015 take 2 tablets by mouth once daily, then take 1 tablet by mouth AZITHROMYCIN 250 MG TABS Take 2 tablet PO the first day followed by 1 tablet PO through Day2-5 AZITHROMYCIN [id number] Anna Alexander PA-C Start: 06-11-2015 End: 06-16-2015 take 2 tablets by mouth once, then take 1 tablet by mouth once daily, then take 2-5 tablets by mouth AZITHROMYCIN 250 MG TABS 2 PO on day 1 then 1 PO daily on days 2-5 AZITHROMYCIN [id number] True Ibarra DO BECLOMETHASONE DIPROPIONATE (1 source) Corticosteroid QVAR 80 MCG/ACT AERS inhale 2 puffs daily BECLOMETHASONE DIPROPIONATE [id number] Fermin Modi BEE POLLEN TABS (2 sources) Start: 05-25-2013 End: 04-23-2014 BEE POLLEN TABS as directed BEE POLLEN TABS [id number] Reginaldo Baxter DO Start: 05-25-2013 BEE POLLEN TAB S as directed BEE POLLEN TABS 18925209740 Jennie Hayes busPIRone hydrochloride 7.5 mg oral tablet (1 source) take 1 tablet by mouth once daily BUSPIRONE HCL 7.5 MG TABS One tablet by mouth daily BUSPIRONE HCL 58338692206 True Yogesh Fred MIRZA cephalexin 500 mg oral capsule (1 source) Cephalosporin Antibacterial Start: 04-02-19 17 take 2 g by mouth every hour KEFLEX 500 MG CAPS 2gm po 1hr prior to dental procedure CEPHALEXIN [id number] Jennie Hayes clopidogrel 75 mg oral tablet (2 sources) P2Y12 Platelet Inhibitor PLAVIX 75 MG TABS 1 tablet by mouth clopidogrel 82201360177 Elida Whitehead AT prasterone 25 mg oral capsule (3 sources) PRO HORMONE DHEA ANTIOXIDANT 25 MG CAPS 1 capsule by mouth prasterone (dhea) 19397901030 Elida Whitehead AT take 1 tablet by mouth once rachel y DHEA 25 MG TABS One tablet by mouth daily PRASTERONE (DHEA) 42168239635 Reginaldo Baxter DO ferrous sulfate (2 sources) take 1 tablet by mouth twice daily SM IRON 325 (65 Fe) MG TABS 1 tablet by mouth twice a day ferrous sulfate [id number] Elida PHILIP fexofenadine hydrochloride 180 mg oral tablet (5 sources) Histamine-1 Receptor Antagonist Start: 0 take 1 tablet by mouth once daily ANYA ALLERGY 180 MG TABS 1 tablet by mouth once a day fexofenadine 57716663348 Elida Whitehead AT Start: 06-06-2015 take 1 tablet by graciela th once daily ANYA ALLERGY 180 MG TABS 1 po daily FEXOFENADINE HCL 49857131739 True Yogesh Fred MIRZA Start: 05-25-2013 take 1 tablet by graciela th twice daily ANYA ALLERGY TABS One tablet by mouth twice daily FEXOFENADINE HCL TABS [id number] Jennie Hayes Start: 05-25-2013 End: 04-23-2014 take 1 tablet by mouth twice daily ANYA ALLERGY TABS One tablet by mouth twice daily FEXOFENADINE HCL TABS 51914377630 Reginaldo Oliverann DO ibuprofen 800 mg oral tablet (1 source) Nonsteroidal Anti-inflammatory Drug take 1 tablet by mouth once daily IBUPROFEN 800 MG TABS One tablet by mouth daily IBUPROFEN 85903123505 Reginaldo Baxter DO KETOROLAC TROMETHAMINE TABS (2 sources) Nonsteroidal Anti-inflammatory Drug, Cyclooxygenase Inhibitor Start: 05-26-19 End: 04-23-19 KETOROLAC TROMETHAMINE TABS as directed KETOROLAC TROMETHAMINE TABS 40289971127 Reginaldo Oliverann DO Start: 05-25-2013 KETOROLAC TROM ETHAMINE TABS as directed KETOROLAC TROMETHAMINE TABS 02439901821 Jennie Hayes levoFLOXacin 500 mg oral tablet (2 sources) Quinolone Antimicrobial Start: 08-29-2014 End: 11-14-2014 LEVAQUIN 500 MG TABS Take 1 tablet PO Qdaily for 14 days LEVOFLOXACIN 48502458654 Padminiheidi Daniels TEST TUBE MAKER lisinopril 5 mg oral tablet (2 sources) Angiotensin Converting Enzyme Inhibitor take 1 tablet by mouth once daily LISINOPRIL 5 MG TABS 1 tablet by mouth once a day lisinopril 87838521441 Salud Ziats AT take 1 tablet by mouth once rachel y LISINOPRIL 2.5 MG TABS 1 tablet by mouth once a day lisinopril 12026298856 Elida Whitehead AT methylphenidate hydrochloride 20 mg oral tablet (2 sources) Central Nervous System Stimulant take 1 tablet by mouth twice daily RITALIN 20 MG TABS 1 tablet by mouth twice a day methylphenidate hcl 41355933797 Elida Whitehead AT METHYLPREDNISOLONE (2 sources) Corticosteroid Start: 2015 End: 2015 MEDROL 4 MG TBPK take as directed on pack METHYLPREDNISOLONE 32041962283 True Ibarra DO Start: 08-19-2015 MEDROL 4 MG TB PK take as directed on pack METHYLPREDNISOLONE 08126970039 Anna Alexander PA-C metoprolol tartrate 25 mg oral tablet (2 sources) beta-Adrenergic Cornelio take 1 capsule by mouth once daily metoprolol succinate 25 mg capsule,sprinkle,ER 24hr 1 capsule by mouth once a day metoprolol succinate Elida Whitehead AT MULTIPLE VITAMIN (1 source) take 1 tablet by mouth once daily MULTIVITAMINS CAPS One tablet by mouth daily MULTIPLE VITAMIN 54182536348 Reginaldo Baxter DO Multivitamin preparation (2 sources) Start: 2019 MULTI-VITAMINS TABS 1 capsule once a day multivitamin 13760232365 Elida Whitehead AT omeprazole 40 mg delayed release oral capsule (2 sources) Proton Pump Inhibitor take 1 capsule by mouth once daily OMEPRAZOLE 40 MG CPDR 1 capsule by mouth once a day omeprazole 35181106896 Elida Whitehead AT pantoprazole 40 mg delayed release oral tablet (1 source) Proton Pump Inhibitor take 1 tablet by mouth once daily PROTONIX 40 MG TBEC One tablet by mouth daily PANTOPRAZOLE SODIUM 34853524069 True Ibarra DO tadalafil 20 mg oral tablet (2 sources) Phosphodiesterase 5 Inhibitor take 1 tablet by mouth once daily CIALIS 20 MG TABS 1 tablet by mouth once a day tadalafil 07854537987 Elida Whitehead AT 5000 mg testosterone 0.01 mg/mg topical gel (5 sources) Androgen Start: 2019 TESTOSTERONE 50 MG/5GM (1%) GEL 2 once a day testosterone 10942360940 Elida Whitehead AT Start: 06-06-2015 TESTIM 50 MG/5 GM (1%) GEL one pump on each arm daily TESTOSTERONE 34170536888 True Ibarra DO Start: 05-25-2013 End: 06-06-2015 TESTIM GEL as directed 05/25 TESTOSTERONE GEL 43166836548 True Ibarra DO Start: 05-25-2013 TESTIM GEL as directed TESTOSTERONE GEL 03964212885 Jennie Hayes TETRACYCLINE HCL CAPS (4 sources) Tetracycline-class Antimicrobial Start: 05-25-2013 End: 04-23-2014 TETRACYCLINE HCL CAPS as directed TETRACYCLINE HCL CAPS 35391226597 Reginaldo Baxter DO Start: 05-25-2013 TETRACYCLINE H CL CAPS as directed TETRACYCLINE HCL CAPS [id number] Jennie Hayes Problems Active Problems Problem Classification Problem Date [...] 04-05-2016 Unclassified (1 source) Shoulder Pain / [id number]() Onset: 05-02-2017 Unclassified (1 source) Pain in [...] Results Test Name Value Interpretation Reference Range Facility Clinical Summary: Ingris benson 07-03-2021 MC25 OP Hand Invalid Interpretation Code [facility] Work Phone: Clinical Summary: Ingris benson 05-22-2021 MC25 OP Hand Invalid Interpretation Code [facility] Work Phone: Office Visiton 12-27-2016 Documentation of current medications (procedure) Done Invalid Interpretation Code [facility] Work Phone: Tobacco smoking status NHIS Never Invalid Interpretation Code [facility] Work Phone: Tobacco use CPHS Never smoker Invalid Interpretation Code [facility] Work Phone: Lab Report: DHEA Sulfateon 0 08-04-2016 DHEA SULF 4020 1646 ng/mL Invalid Interpretation Code Units converted. See lab report for original value. [facility] Work Phone: Lab Report: CBC W/Diff, Auto matedon 08-02-2016 Absolute Neut 2.9 X10 3/UL Invalid Interpretation Code 2.0-7.7 [facility] Work Phone: Basophils/100 WBC Auto (Bld) 0.4 % Invalid Interpretation Code 0-1 [facility] Work Phone: Eosinophils/100 leukocytes 1.7 % Invalid Interpretation Code 0-5 [facility] Work Phone: Erythrocyte distribution width Auto Ratio (RBC) 14.3 % Invalid Interpretation Code 11.6-14.6 [facility] Work Phone: Erythrocytes (RBC) 4.82 10*6/uL Invalid Interpretation Code 4.6-6.2 [facility] Work Phone: Hematocrit (HCT) 40.0 % Invalid Interpretation Code 40-54 [facility] Work Phone: Hemoglobin mass conc (Bld) 13.8 g/dL Invalid Interpretation Code 13.0-16.5 [facility] Work Phone: Immature granulocytes/100 WBC (Bld) 0.200 % Invalid Interpretation Code 0.0-0.9 [facility] Work Phone: Lymphocytes 1.39 X10 3/UL Invalid Interpretation Code 0.83-4.51 [facility] Work Phone: Lymphocytes/100 leukocytes 29.3 % Invalid Interpretation Code 19-41 [facility] Work Phone: MCH 28.6 pg Invalid Interpretation Code 27.0-32.0 [facility] Work Phone: MCHC mass conc (RBC) 34.5 G/GL Invalid Interpretation Code 32-36 [facility] Work Phone: MCV 83.0 fL Invalid Interpretation Code 80-94 [facility] Work Phone: Monocytes/100 leukocytes 7.6 % Invalid Interpretation Code 0-10 [facility] Work Phone: Neutrophils/100 WBC Auto (Bld) 60.8 % Invalid Interpretation Code 47-70 [facility] Work Phone: Platelets 213 10*3/mm3 Invalid Interpretation Code 150-450 [facility] Work Phone: PMV by Jorge 9.7 fL Invalid Interpretation Code 6.2-12.0 [facility] Work Phone: RDW SD 42.7 fL Invalid Interpretation Code 35.1-43.9 [facility] Work Phone: WBC (Leukocytes) 4.8 10*3/uL Invalid Interpretation Code 4.4-11.0 [facility] Work Phone: Lab Report: [facility] aren Bassett 08-02-2016 Alanine aminotransferase (ALT) 31 U/L Invalid Interpretation Code 12-78 [facility] Work Phone: Albumin 3.5 g/dL Invalid Interpretation Code 3.4-5.0 [facility] Work Phone: Albumin/Globulin Ratio 0.9 {ratio} Invalid Interpretation Code 0.9-2.4 [facility] Work Phone: Alkaline phosphatase (ALP) 115 U/L Invalid Interpretation Code 45-117 [facility] Work Phone: Anion gap 7 mmol/L Invalid Interpretation Code 5-15 [facility] Work Phone: Aspartate aminotransferase (AST) 24 U/L Invalid Interpretation Code 15-37 [facility] Work Phone: Bilirubin (total) 0.40 mg/dL Invalid Interpretation Code 0.20-1.00 [facility] Work Phone: BUN/Creatinine Ratio 12.6 RATIO Invalid Interpretation Code 10-20 [facility] Work Phone: Calcium 8.9 mg/dL Invalid Interpretation Code 8.5-10.1 [facility] Work Phone: Chloride 106 mmol/L Invalid Interpretation Code 98-107 [facility] Work Phone: CO2 28.0 mmol/L Invalid Interpretation Code 21.0-32.0 [facility] Work Phone: Creatinine 0.95 mg/dL Invalid Interpretation Code 0.70-1.30 [facility] Work Phone: eGFR (non-black) 85 mL/min/{1.73_m2 } Invalid Interpretation Code >60 [facility] Work Phone: eGFR (non-black) 103 mL/min/{1.73_m2 } Invalid Interpretation Code >60 [facility] Work Phone: Globulin 3.7 g/dL High 2.3-3.5 [facility] Work Phone: Glucose mass conc 103 mg/dL Invalid Interpretation Code 70-110 [facility] Work Phone: Potassium molar conc 4.3 mmol/L Invalid Interpretation Code 3.5-5.1 [facility] Work Phone: Protein 7.2 g/dL Invalid Interpretation Code 6.4-8.2 [facility] Work Phone: Sodium 141 mmol/L Invalid Interpretation Code 136-145 [facility] Work Phone: Urea nitrogen 12 mg/dL Invalid Interpretation Code 7-18 [facility] Work Phone: Lab Report: LDHon 08-02-2016 LDH 221 U/L Invalid Interpretation Code 87-241 [facility] Work Phone: Lab Report: Lipid Profileon 08-02-2016 Cholesterol 192 mg/dL Invalid Interpretation Code 200 [facility] Work Phone: HDL Cholesterol 61 mg/dL Invalid Interpretation Code [facility] Work Phone: LDL Cholesterol 113 mg/dL Invalid Interpretation Code 0-130 [facility] Work Phone: Triglyceride 92 mg/dL Invalid Interpretation Code [facility] Work Phone: very low density lipoproteins 18 mg/dL Invalid Interpretation Code 5-40 [facility] Work Phone: Lab Report: Uric Acidon 07-13 Urate 4.2 mg/dL Invalid Interpretation Code 3.5-7.2 [facility] Work Phone: Chart Maintenanceon 07-19-19 17 Triglyceride 92 mg/dL Invalid Interpretation Code [facility] Work Phone: Office Visit: Transition of careon 07-12-2016 Adolescent depression screening assessment Adolescent depression screening assessment Invalid Interpretation Code [facility] Work Phone: Adult depression screening assessment Adult depression screening assessment Invalid Interpretation Code [facility] Work Phone: Fall risk assessment No Invalid Interpretation Code [facility] Work Phone: Lab Report: Basic Metabolic Profile (BMP)on 03-24-2016 Creatinine 80.10 mL/min Invalid Interpretation Code [facility] Work Phone: Microbiology: MRSA/SAID SCRE ENon 03-23-2016 MRSA+SAID SCRN . Invalid Interpretation Code [facility] Work Phone: Lab Report: Erythrocyte Sed Rateon 08-18-2015 Erythrocyte sedimentation rate 23 mm/h High 0-20 [facility] Work Phone: Office Visiton 2015 Smoking cessation education (procedure) yes Invalid Interpretation Code [facility] Work Phone: Replaced Document: (P) [place] Lambda Lt Chn Ser. Mon.on 03-20-2015 FR KAPPA LT CHN 1.117 mg/dL Invalid Interpretation Code Units converted. See lab report for original value. [facility] Work Phone: FR LAMBDA LT CH 1.413 mg/dL Invalid Interpretation Code Units converted. See lab report for original value. [facility] Work Phone: KAPPA/LAMBDA % 0.79 Invalid Interpretation Code 0.26-1.65 [facility] Work Phone: Lab Report: Testosterone, To teresa / Freeon 09-19-2014 TESTOSTER %FREE 3.01 % Invalid Interpretation Code 1.50-4.20 [facility] Work Phone: Testosterone 1127 ng/dL Invalid Interpretation Code [phone] [facility] Work Phone: testosterone, serum, free 339.2 pg/mL High Units converted. See lab report for original value. [facility] Work Phone: Lab Report: CBC W/Diff, Auto - EPLAB Onlyon 09-18-2014 Absolute Neut 3.5 X10 3/UL Invalid Interpretation Code 2.0-7.7 [facility] Work Phone: Lab Report: CBC W/Diff, Auto matedon 09-13-2014 Lymphocytes 1.70 X10 3/UL Invalid Interpretation Code 0.83-4.51 [facility] Work Phone: Lab Report: PSA,Total - Sary al Screenon 09-13-2014 PSA,TOT SCREEN 0.78 ng/mL Invalid Interpretation Code 0.00-4.00 [facility] Work Phone: Lab Report: Thyroid Stim Hor celina (TSH)on 09-13-2014 Thyroid stimulating hormone (TSH) 1.40 u[iU]/mL Invalid Interpretation Code 0.358-3.74 [facility] Work Phone: Lab Report: ALINA + Protein El ect, Serumon 09-03-2014 IgM 30 mg/dL Low 40-230 [facility] Work Phone: M-SPIKE . Invalid Interpretation Code [facility] Work Phone: Albumin 4.1 g/dL Invalid Interpretation Code 3.2-5.6 [facility] Work Phone: Alpha 2 globulin 0.5 g/dL Invalid Interpretation Code 0.4-1.2 [facility] Work Phone: TVZBA-6-AEDJ 0.2 g/dL Invalid Interpretation Code 0.1-0.4 [facility] Work Phone: BETA GLOBULIN 1.0 g/dL Invalid Interpretation Code 0.6-1.3 [facility] Work Phone: Gamma globulin 700 mg/dL Invalid Interpretation Code Units converted. See lab report for original value. [facility] Work Phone: IgA 203 mg/dL Invalid Interpretation Code 91-414 [facility] Work Phone: IgG 753 mg/dL Invalid Interpretation Code 700-1600 [facility] Work Phone: Lab Report: LDHon 06-19-2014 Lactate dehydrogenase (LDH) 211 U/L Invalid Interpretation Code 84-246 [facility] Work Phone: Vital Signs Date Time Vital Sign Value Performing Clinician Facility 07-12-2016 08:38-0400 BMI (Body Mass Index) 26.36 kg/m2 [facility] Work Phone: 07-12-2016 08:38-0400 Body Temperature 98 [degF] [facility] Work Phone: 07-12-2016 08:38-0400 Body Temperature 98.01 [degF] [facility] Work Phone: 07-12-2016 08:38-0400 BP Diastolic 75 mm[Hg] Kavya Mccauley [facility] er [facility] Medicine [facility] Work Phone: 07-12-2016 08:38-0400 BP Systolic 135 mm[Hg] Kavya Mccauley [facility] Work Phone: 07-12-2016 08:38-0400 Height 179.07 [facility] Work Phone: 07-12-2016 08:38-0400 Pulse (Heart Rate) 75 /min [facility] Work Phone: 07-12-2016 08:38-0400 Respiratory Rate 16 /min [facility] Kavita ter [facility] Work Phone: 07-12-2016 08:38-0400 Weight 84.55 [facility] Work Phone: 09-16-2015 10:27-0400 BSA (Body Surface Area) 2.12 m2 [facility] Work Phone: NEGATED: Highlighted [id number] 08:26-0400 Body height 175.26 cm Salud Ziats AT [facility] Work Phone: NEGATED: Highlighted [id number] 08:26-0400 Body height 175 cm Salud Ziats AT [facility] Work Phone: NEGATED: Highlighted [id number] 08:26-0400 Body mass index (BMI) [Ratio] 23.71 kg/m2 Salud Ziats AT [facility] Work Phone: NEGATED: Highlighted [id number] 08:26-0400 Body weight 72.58 kg Salud Ziats AT [facility] Work Phone: NEGATED: Highlighted [id number] 08:26-0400 Body weight 73 kg Salud Ziats AT [facility] Work Phone: NEGATED: Highlighted [id number] 09:16-0500 Body height 175.26 cm Florence Torres JUDY [facility] Work Phone: NEGATED: Highlighted [id number] 09:16-0500 Body height 175 cm Florence Torres LPN [facility] Work Phone: NEGATED: Highlighted [id number] 09:16-0500 Body mass index (BMI) [Ratio] 23.71 kg/m2 Florence Torres LPN [facility] Work Phone: NEGATED: Highlighted [id number] 09:16-0500 Body weight 72.58 kg Florence Torres LPN [facility] Work Phone: NEGATED: Highlighted [id number] 09:160500 Body weight 73 kg Florence Torres LPN [facility] Work Phone: Encounters Encounter Date Encounter Type Care Provider Facility Start: 07-03-2021 End: 07-03-2021 Ot evaluation Cody Cui MD Work Phone: [facility] Work Phone: Start: 05-22-2021 End: 05-22-2021 Ot evaluation Nisa Conley PA-C Work Phone: [facility] Work Phone: Start: 05-02-2017 Ambulatory [facility] Start: 03-23-2017 Ambulatory [facility] Start: 09-22-2016 Ambulatory [facility] Procedures Date Procedure Procedure Detail Performing Clinician Start: 07-03-2021 End: 07-03-2021 BP scrn no perf at interval Cody tariq MD Work Phone: Start: 07-03-2021 End: 07-03-2021 Calc BMI norm parameters Cody Cui MD Work Phone: Start: 07-03-2021 End: 04-22-2022 Current tobacco non-user cad cap copd pv [...] End: 08-02-2016 *CBC with Differential Odalis Hobbs [employer] Work Phone: Start: 07-12-2016 End: 08-02-2016 *CMP Complete Metabolic Panel Odalis garcias [employer] MACHINE OPERATOR Work Phone: Start: 07-12-2016 End: 08-04-2016 Dehydroepiandrosterone sulfate (DHEA-S) [Mass/volume] in Serum or Plasma Odalis Hobbs LU[employer] MACHINE OPERATOR Work Phone: Start: 07-12-2016 End: 08-02-2016 Lipid 1996 panel - Serum or Plasma Odalis Hobbs LU[employer] MACHINE OPERATOR Work Phone: Start: 03-24-2016 End: 03-24-2016 *CBC with Differential Fermin Modi Work Phone: Start: 03-24-2016 End: 03-24-2016 *CMP Complete Metabolic Panel Fermin Modi Work Phone: Start: 03-24-2016 End: 03-24-2016 Lactate dehydrogenase [Enzymatic activity/volume] in Serum or Plasma Fermin Modi Work Phone: Start: 03-24-2016 End: 03-24-2016 Urate [Mass/volume] in Serum or Plasma Fermin Modi Work Phone: Start: 03-15-2016 End: 03-24-2016 *CBC with Differential Fermin Modi Work Phone: Start: 03-15-2016 End: 03-24-2016 *CMP Complete Metabolic Panel Fermin Modi Work Phone: Start: 03-15-2016 End: 03-24-2016 Lactate dehydrogenase [Enzymatic activity/volume] in Serum or Plasma Fermin Modi Work Phone: Start: 03-15-2016 End: 03-24-2016 Urate [Mass/volume] in Serum or Plasma Fermin Modi Work Phone: Start: 02-18-2016 End: 02-23-2016 Arthrocentesis aspir&/inj major jt/bursa w/o us Jennie Hayes Work Phone: Start: 02-18-2016 End: 03-24-2016 Mri any jt upper extremity w/o contrast matrl Jennie Hayes Work Phone: Start: 11-03-2015 End: 11-14-2015 Arthrocentesis aspir&/inj major jt/bursa w/o us Jennie Hayes Work Phone: Start: 08-18-2015 End: 03-24-2016 Ct head/brain w/o contrast material Anna Cardona Benjamin PA-C Work Phone: Start: 08-18-2015 End: 08-19-2015 Erythrocyte sedimentation rate Anna Cardona Benjamin PA-C Work Phone: Start: 07-23-2015 End: 08-04-2015 Arthrocentesis aspir&/inj major jt/bursa w/o us Jennie Hayes Work Phone: Start: 06-17-2015 End: 09-12-2015 *CBC with Differential Christensentena Modi Work Phone: Start: 06-17-2015 End: 06-23-2015 *CMP Complete Metabolic Panel Fermin Modi Work Phone: Start: 06-17-2015 End: 06-23-2015 Lactate dehydrogenase [Enzymatic activity/volume] in Serum or Plasma Fermin Modi Work Phone: Start: 06-17-2015 End: 06-23-2015 Urate [Mass/volume] in Serum or Plasma Fermin Modi Work Phone: Start: 2015 End: 05-01-2015 Arthrocentesis aspir&/inj major jt/bursa w/o Jennie Hayes Work Phone: Start: 2015 End: 03-24-2016 Radiologic exam knee complete 4/more views Jenine Hayes Work Phone: Start: 03-10-2015 End: 03-18-2015 *CBC with Differential Christensen Jonathan Modi Work Phone: Start: 03-10-2015 End: 03-18-2015 [...] End: 12-31-2014 Arthrocentesis aspir&/inj major jt/bursa w/o Jennie Hayes Work Phone: Start: 09-18-2014 End: 09-12-2015 *CBC with Differential Fermin Modi Work Phone: Start: 09-16-2014 End: 09-16-2014 *CBC with Differential Christensen Jonathan Modi Work Phone: Start: 09-06-2014 End: 09-15-2014 Arthrocentesis aspir&/inj major jt/bursa w/o Jennie Hayes Work Phone: Start: 07-02-2014 End: 09-12-2015 *CBC with Differential Fermin Modi Work Phone: Start: 06-19-2014 End: 06-19-2014 *CBC with Differential Christensen Jonathan Modi Work Phone: Start: 06-19-2014 End: 06-19-2014 *CMP Complete Metabolic Panel Fermin Modi Work Phone: Start: 06-19-2014 End: 06-19-2014 Lactate dehydrogenase [Enzymatic activity/volume] in Serum or Plasma Fermin Modi Work Phone: Start: 06-19-2014 End: 06-19-2014 Urate [Mass/volume] in Serum or Plasma Fermin Modi Work Phone: Start: 05-20-2014 End: 05-21-2014 *CBC with Differential Christensen Jonathan Modi Work Phone: Start: 03-29-2014 End: 04-02-2014 Arthrocentesis aspir&/inj major jt/bursa w/o Jennie Preeti Tony Work Phone: NEGATED: Highlighted rowStart: 07-03-2021 End: 07-03-2021 Documentation of current medications Salud Miguelvitaliy AT NEGATED: Highlighted rowStart: 05-22-2021 End: 05-22-2021 Documentation of current medications Florence Torres TEST [employer]BE [employer]ER Plan of Treatment Date Care Activity Detail Author Start: 08-28-2021 End: 08-28-2021 Patient encounter procedure Appointment [facility] Work Phone: Start: 07-03-2021 End: 07-03-2021 Patient encounter procedure Appointment [facility] Work Phone: Start: 05-22-2021 End: 05-22-2021 Patient encounter procedure Appointment [facility] Work Phone: Start: 09-22-2016 End: 09-22-2016 Radex shoulder complete minimum 2 views X-Ray, Shoulder [facility] Work Phone: Start: 09-16-2016 End: 03-24-2016 *CBC with Differential *CBC with Differential [facility] Work Phone: Start: 09-16-2016 End: 03-24-2016 *CMP Complete Metabolic Panel *CMP Complete Metabolic Panel [facility] Work Phone: Start: 09-16-2016 End: 03-24-2016 Lactate dehydrogenase (LDH) *LDH -LDH (Lactate Dehydrogenase) [facility] Work Phone: Start: 09-16-2016 End: 03-24-2016 Urate *Uric Acid Blood [facility] Work Phone: Start: 07-12-2016 End: 08-02-2016 *CBC with Differential *CBC with Differential [facility] Work Phone: Start: 07-12-2016 End: 08-02-2016 *CMP Complete Metabolic Panel *CMP Complete Metabolic Panel [facility] Work Phone: Start: 07-12-2016 End: 07-18-2016 Acth stimulation panel adrenal insufficiency ACTH stimulation panel; for adrenal insufficiency. [facility] Work Phone: Start: 07-12-2016 End: 08-04-2016 Dehydroepiandrosterone sulfate (DHEA-S) *DHEA - DHEA-S (Dehydroepiandrostero ne Sullfate) [facility] Work Phone: Start: 07-12-2016 End: 08-02-2016 Lipid panel [AGGREGATE] *Lipid Profile [facility] Work Phone: Start: 05-03-2016 End: 05-03-2016 Radex shoulder complete minimum 2 views X-Ray, Shoulder [facility] Work Phone: Start: 03-31-2016 End: 03-31-2016 Physical Therapy General Physical Therapy [facility], [address] [place] [address], [id number] [facility] Work Phone: Start: 03-15-2016 End: 03-24-2016 *CBC with Differential *CBC with Differential [facility] Work Phone: Start: 03-15-2016 End: 03-24-2016 *CMP Complete Metabolic Panel *CMP Complete Metabolic Panel [facility] Work Phone: Start: 03-15-2016 End: 03-24-2016 Lactate dehydrogenase (LDH) *LDH -LDH (Lactate Dehydrogenase) [facility] Work Phone: Start: 03-15-2016 End: 03-24-2016 Urate *Uric Acid Blood [facility] Work Phone: Start: 02-18-2016 End: 03-24-2016 Mri any jt upper extremity w/o contrast matrl MRI Joint Upper Extremity [facility] Work Phone: Start: 08-18-2015 End: 03-24-2016 Ct head/brain w/o contrast material CT Head/Brain without contrast [facility] Work Phone: Start: 08-18-2015 End: 08-19-2015 Erythrocyte sedimentation rate *Sedimentation Rate (ESR) [facility] Work Phone: Start: 06-17-2015 End: 09-12-2015 *CBC with Differential *CBC with Differential [facility] Work Phone: Start: 06-17-2015 End: 06-23-2015 *CMP Complete Metabolic Panel *CMP Complete Metabolic Panel [facility] Work Phone: Start: 06-17-2015 End: 06-23-2015 Lactate dehydrogenase (LDH) *LDH -LDH (Lactate Dehydrogenase) [facility] Work Phone: Start: 06-17-2015 End: 06-23-2015 Urate *Uric Acid Blood [facility] Work Phone: Start: 2015 End: 03-24-2016 Radiologic exam knee complete 4/more views X-Ray, Knee [facility] Work Phone: Start: 03-10-2015 End: 03-18-2015 *CBC with Differential *CBC with Differential [facility] Work Phone: Start: 03-10-2015 End: 03-18-2015 *CMP Complete Metabolic Panel *CMP Complete Metabolic Panel [facility] Work Phone: Start: 03-10-2015 End: 09-12-2015 *MISC - Miscellaneous Lab Test #1 *MISC - Miscellaneous Lab Test #1 [facility] Work Phone: Start: 03-10-2015 End: 03-18-2015 Lactate dehydrogenase (LDH) *LDH -LDH (Lactate Dehydrogenase) [facility] Work Phone: Start: 03-10-2015 End: 03-18-2015 Urate *Uric Acid Blood [facility] Work Phone: Start: 10-02-2014 End: 10-07-2014 Mri spinal canal cervical w/o contrast matrl MRI Cervical Spine [facility] Work Phone: Start: 10-02-2014 End: 10-11-2014 Office outpatient visit 25 minutes [id number] Ofc Vst, Est Level IV [facility] Work Phone: Start: 09-19-2014 End: 09-16-2014 *CBC with Differential *CBC with Differential [facility] Work Phone: Start: 09-18-2014 End: 09-12-2015 *CBC with Differential *CBC with Differential [facility] Work Phone: Start: 07-02-2014 End: 09-12-2015 *CBC with Differential *CBC with Differential [facility] Work Phone: Start: 06-21-2014 End: 06-19-2014 Lactate dehydrogenase (LDH) *LDH -LDH (Lactate Dehydrogenase) [facility] Work Phone: Start: 06-20-2014 End: 06-19-2014 *CBC with Differential *CBC with Differential [facility] Work Phone: Start: 06-20-2014 End: 06-19-2014 *CMP Complete Metabolic Panel *CMP Complete Metabolic Panel [facility] Work Phone: Start: 06-20-2014 End: 06-19-2014 Urate *Uric Acid Blood [facility] Work Phone: Start: 05-20-2014 End: 05-21-2014 *CBC with Differential *CBC with Differential [facility] Work Phone: Patient Education WEIGHT%20MANAG EMENT, WEIGHT%20MANAGEMENT [facility] Work Phone: Payers Date Payer Category Payer Unknown [id number] Social History Date Type Detail Facility Start: 05-22-2021 End: 07-03-2021 Assertion Unknown if ever smoked [facility] Work Phone: Evaluation note Note Date & Type Note Facility Evaluation note There may be informa tion available, but it has not been provided by the sender. [facility] Work Phone: Instructions Note Date & Type Note Facility Instructions Completed [facility] Work Phone: Instructions Note Date & Type Note Facility Instructions Completed [facility] Work Phone: Summary Purpose Family History No [...] INFORMATION SOURCE (unrecogn ized section and content) DATE CREATED AUTHOR 09/02/2017 [facility] Reason for Visit (unrecogniz ed section and content) Reason For Visit Description Postop - 1st visit Preliminary reason f or visit data, not yet signed by the author as of left wrist post EXTENSOR TENOSYNOVECTOMY LEFT WRIST COMPARTMENTS II II IV; EXCISION NEUROMA POSTERIOR INTEROSSEOUS NERVE AND BURYING IN MUSCLE; ARTHROTOMY WRIST JOINT WITH SYNOVECTOMY; REPAIR EDC TO INDEX LONG AND RING FINGERS; REPAIR EIP on 05/11/2021 Reason For Visit Description Start Date Postop [...] BE BASED ON THE PRIMARY CLINICAL RECORDS. [employer] provides no warranty or guarantee of the accuracy or completeness of information in this document.
[2024-01-06 06:30] LABS: Absolute Lymphocyte Count 1.97 X10^3/uL (0.83-4.51); Absolute Neutrophil Count 2.1 X10^3/uL (2.0-7.7); Basophil# 0.04 X10^3/uL; Basophil% 0.9 % (0-1); Eosinophil# 0.14 X10^3/uL; Eosinophils% 3.1 % (0-5); Hematocrit 42.8 % (40-54); Hemoglobin 13.9 g/dL (13.0-16.5); Lymphocyte # 1.97 X10^3/ul (0.83-4.51); Lymphocyte % 43.1 % (19-41); Mean Corp Hgb Conc 32.5 g/dL (32-36); Mean Corpuscular Hgb 29.2 pg (27.0-32.0); Mean Corpuscular Volume 89.9 fL (80-94); Mean Platelet Vol. 9.2 fl (6.2-12.0); Monocyte# 0.32 X10^3/uL; NRBC Flagged by Analyzer 0 % (0-5); Neutrophil # 2.09 X10^3/uL (2.7-7.7); Neutrophil % 45.7 % (47-70); Platelet Count 203 K/mm3 (150-450); RBC Distribution Width SD 45.8 fl (35.1-43.9); Red Blood Count 4.76 M/mm3 (4.6-6.2); White Blood Count 4.6 K/mm3 (4.4-11.0)
[2024-01-06 06:55] LABS: ALB/GLOB Ratio 1.4 RATIO (0.9-2.4); AST(SGOT) 31 U/L (15-37); Alanine Aminotransfer ALT/SGPT 36 U/L (16-61); Albumin, Serum 4.1 g/dL (3.2-5.0); Alkaline Phosphatase 58 U/L (45-117); Anion Gap 3 (5-15); BUN 17 mg/dL (7-18); BUN/Creat Ratio 13.5 RATIO (10-20); Calcium,Total 8.9 mg/dL (8.5-10.1); Chloride 104 mmol/L (98-107); Cholesterol 153 mg/dL (200); Creatinine, Serum 1.26 mg/dL (0.70-1.30); EST Glomerular Filtration Rate 60 mL/min (>60); Est Glom Filt Rate - Afr Amer 73 mL/min (>60); Globulin 2.9 g/dL (2.2-4.2); Glucose 81 mg/dL (74-106); High Density Lipoprotein 84 mg/dL; Potassium 3.8 mmol/L (3.5-5.1); Sodium Level 138 mmol/L (136-145); Triglycerides 90 mg/dL; Very Low Density Lipoprotein 18 mg/dL (5-40)
[2024-01-13 15:09] LABS: Testosterone, % Free 4.06 % (1.50-4.20); Testosterone, Free >60.90 ng/dL (5.00-21.00); Testosterone, Total > 1500 ng/dL (264-916)
== END | disposition home or self-care (01) ==
LOC: LAB 05:57
PROVIDERS: PCP Family Medicine; Referring Provider Internal Medicine Endocrinology, Diabetes & Metabolism; Visit Provider Internal Medicine Endocrinology, Diabetes & Metabolism
DX: E78.2 Mixed hyperlipidemia (principal); D72.819 Decreased white blood cell count, unspecified; D50.8 Other iron deficiency anemias
CPT/HCPCS: 36415; 80053; 80061; 84402; 84403; 85025

== ENCOUNTER → 2024-01-31 | Outpatient (CLI) | payer MEDICARE, OTHER, SELFPAY ==
[2023-03-02 15:44] VITALS: BMI 25.8
[2024-01-31 09:46] LABS: Absolute Lymphocyte Count 1.04 X10^3/uL (0.83-4.51); Basophil# 0.03 X10^3/uL; Basophil% 0.9 % (0-1); Eosinophil# 0.07 X10^3/uL; Hematocrit 36.3 % (40-54); Hemoglobin 12.4 g/dL (13.0-16.5); Lymphocyte # 1.04 X10^3/ul (0.83-4.51); Lymphocyte % 29.5 % (19-41); Mean Corp Hgb Conc 34.2 g/dL (32-36); Mean Corpuscular Hgb 30.4 pg (27.0-32.0); Mean Platelet Vol. 9.7 fl (6.2-12.0); Monocyte% 11.4 % (0-10); NRBC Flagged by Analyzer 0 % (0-5); Neutrophil # 1.97 X10^3/uL (2.7-7.7); Neutrophil % 55.9 % (47-70); Platelet Count 174 K/mm3 (150-450); RBC Distribution Width CV 14.3 % (11.6-14.6); RBC Distribution Width SD 45.6 fl (35.1-43.9); Red Blood Count 4.08 M/mm3 (4.6-6.2); White Blood Count 3.5 K/mm3 (4.4-11.0)
[2024-01-31 10:16] LABS: ALB/GLOB Ratio 1.3 RATIO (0.9-2.4); AST(SGOT) 36 U/L (15-37); Alanine Aminotransfer ALT/SGPT 36 U/L (16-61); Albumin, Serum 3.6 g/dL (3.2-5.0); Alkaline Phosphatase 66 U/L (45-117); Anion Gap 5 (5-15); BUN 16 mg/dL (7-18); BUN/Creat Ratio 15.4 RATIO (10-20); Calcium,Total 8.6 mg/dL (8.5-10.1); Chloride 105 mmol/L (98-107); Creatinine, Serum 1.04 mg/dL (0.70-1.30); EST Glomerular Filtration Rate 75 mL/min (>60); Est Glom Filt Rate - Afr Amer 91 mL/min (>60); Globulin 2.7 g/dL (2.2-4.2); Glucose 116 mg/dL (74-106); Potassium 3.7 mmol/L (3.5-5.1); Protein, Total 6.3 g/dL (6.4-8.2); Sodium Level 138 mmol/L (136-145)
== END | disposition home or self-care (01) ==
LOC: MTLAB 08:46
PROVIDERS: PCP Family Medicine; Referring Provider Internal Medicine Rheumatology; Visit Provider Internal Medicine Rheumatology
DX: M06.4 Inflammatory polyarthropathy (principal); Z79.899 Other long term (current) drug therapy
CPT/HCPCS: 36415; 80053; 85025

== ENCOUNTER → 2024-04-23 | Outpatient (CLI) | payer MEDICARE, OTHER, SELFPAY ==
[2023-03-02 15:44] VITALS: BMI 25.8
[2024-04-23 12:29] LABS: Absolute Lymphocyte Count 0.88 X10^3/uL (0.83-4.51); Absolute Neutrophil Count 2.9 X10^3/uL (2.0-7.7); Basophil# 0.04 X10^3/uL; Basophil% 0.9 % (0-1); Eosinophil# 0.09 X10^3/uL; Eosinophils% 2.1 % (0-5); Hematocrit 37.2 % (40-54); Hemoglobin 12.4 g/dL (13.0-16.5); Lymphocyte # 0.88 X10^3/ul (0.83-4.51); Lymphocyte % 20.8 % (19-41); Mean Corp Hgb Conc 33.3 g/dL (32-36); Mean Corpuscular Hgb 30.2 pg (27.0-32.0); Mean Corpuscular Volume 90.7 fL (80-94); Mean Platelet Vol. 10.1 fl (6.2-12.0); Monocyte# 0.36 X10^3/uL; Monocyte% 8.5 % (0-10); NRBC Flagged by Analyzer 0 % (0-5); Neutrophil # 2.86 X10^3/uL (2.7-7.7); Neutrophil % 67.5 % (47-70); Platelet Count 173 K/mm3 (150-450); RBC Distribution Width CV 14.1 % (11.6-14.6); RBC Distribution Width SD 46.6 fl (35.1-43.9); White Blood Count 4.2 K/mm3 (4.4-11.0)
[2024-04-23 12:39] LABS: ALB/GLOB Ratio 1.4 RATIO (0.9-2.4); AST(SGOT) 27 U/L (15-37); Alanine Aminotransfer ALT/SGPT 31 U/L (16-61); Albumin, Serum 3.8 g/dL (3.2-5.0); Alkaline Phosphatase 54 U/L (45-117); Anion Gap 4 (5-15); BUN 11 mg/dL (7-18); BUN/Creat Ratio 9.8 RATIO (10-20); Calcium,Total 8.8 mg/dL (8.5-10.1); Chloride 106 mmol/L (98-107); Creatinine, Serum 1.12 mg/dL (0.70-1.30); EST Glomerular Filtration Rate 69 mL/min (>60); Est Glom Filt Rate - Afr Amer 83 mL/min (>60); Globulin 2.8 g/dL (2.2-4.2); Glucose 99 mg/dL (74-106); Potassium 4.3 mmol/L (3.5-5.1); Protein, Total 6.6 g/dL (6.4-8.2); Sodium Level 138 mmol/L (136-145)
== END | disposition home or self-care (01) ==
LOC: MTLAB 09:46
PROVIDERS: PCP Family Medicine; Referring Provider Internal Medicine Rheumatology; Visit Provider Internal Medicine Rheumatology
DX: M06.4 Inflammatory polyarthropathy (principal); M17.0 Bilateral primary osteoarthritis of knee; Z79.899 Other long term (current) drug therapy
CPT/HCPCS: 36415; 80053; 85025

== ENCOUNTER → 2024-04-26 | Outpatient (CLI) | payer MEDICARE, OTHER, SELFPAY ==
[2023-03-02 15:44] VITALS: BMI 25.8
[2024-04-26 17:25] LABS: PSA,Total - Annual Screen 0.36 ng/mL (0.00-4.00)
== END | disposition home or self-care (01) ==
LOC: PAVLAB 16:42
PROVIDERS: PCP Family Medicine; Referring Provider Nurse Practitioner Family; Visit Provider Nurse Practitioner Family
DX: Z12.5 Encounter for screening for malignant neoplasm of prostate (principal)
CPT/HCPCS: 36415; 84153; G0103

== ENCOUNTER 2024-06-06 07:30 | Outpatient (RCR) | payer MEDICARE, OTHER, SELFPAY ==
[2023-03-02 15:44] VITALS: BMI 25.8
--- NOTE | 2024-03-29 10:26 | HP.PTEVAL_ITS ---
Patient's Visit Information Visit Information Visit Information: VAUGHN DINERO is a 68 year old M referred to Physical Therapy by Dr. Reginaldo Blank DO with a diagnosis of R IT band syndrome. Date of Evaluation: 03/28/24 Physical Therapist: Cam Santillan, PT, ATC Visit Plan Frequency: 2x /Week Duration: 4-6 Weeks Plan: R HS and IT band stretches, core strengthening ex's, bike, and HEP Subjective Subjective: Pt reports he has had R lateral leg pain for 6-8 months. Pt reports he has a lot of difficulty with getting out of the bed in the morning secondary to his R LE wanting to give out on him for the first 3 steps. Pt reports he has had x-rays which revealed his R TKA has healed well and is not causing this pain. Pt notes he cant lay on his R side for greater than 3 minutes with out experiencing a significant increase in pain. Pt denies any tingling or numbness in R LE other than lateral aspect that's been present since R TKA. Pt reports sleep difficulty secondary to pain. Pt also notes increased pain when he attempts to drive secondary to his R lateral leg pain. Pt reports he had been trying to jog a bit, but notes increased pain with that type of activity. Pt has stairs at home and has difficulty with negotiating them in the morning. 0/10 pain while sitting here at rest, 9/10 pain at worst. Pain R IT band: Pain Intensity (Out of 10): 0 Pain Intensity Range: 9 Objective Objective: Neuro: B LE sensation is WNL to light touch Palpation: Pt is point tender along the distribution of the R IT band ROM: B knees 0-135 degrees MMT: R knee flex= 44, ext= 48 #F: L knee flex= 36, ext= 41 #F Balance/Special Test Scores Lower Extremity Functional Score: 60 Goals Goal 1:: Decrease R knee pain x 50% to aid with sleep Goal Time Frame: 4-6 Weeks Goal 2:: Increase pt's tolerance for driving to greater than 10 min without experiencing increased R LE sx's Goal Time Frame: 4-6 Weeks Goal 3:: I with hep Goal Time Frame: 4-6 Weeks Rehabilitation Potential Physical Therapy Diagnosis: Pt has difficulty with sleep and R lateral leg pain secondary to R IT band syndrome Rehabilitation Potential: Good Anticipated Interventions Patient/Client Instruction: Educate patient on: Condition and Plan of Care For the Purpose of:: To improve self management Therapeutic Exercise to Include: Strength training, Endurance training, Flexibilty training and Dynamic Lumbar Stabilization For the Purpose of:: To decrease pain and To improve muscle performance and motor function Text: Thank you for the opportunity to evaluate your patient. For Medicare and Medicare HMO plans, please review the plan of care and approve it. It will need to be FAXED BACK to us at [phone] for Medicare purposes. For Medicare only, by signing this I certify the plan of care. Please let me know if there are questions or concerns regarding this plan of care. Physician Signature: Date:
--- NOTE | 2024-06-06 07:59 | HP.PTDCSUM ---
Discharge Summary D/C summary: It has been my pleasure to treat VAUGHN DINERO referred by Dr. Reginaldo Blank DO, with the diagnosis of R IT band syndrome for a total of 12 visit(s). Discharge Date: Please see the following information for a summary of their discharge status. Subjective Subjective: Pt reports he is in more pain than the last time he saw me. Pt reports this is a whole different pain that causes his knee to swell Pain R IT band: Pain Intensity (Out of 10): 4 Overall Improvement % Improvement: 45 Objective Objective/Function: R knee pain ranges from 5-7/10. Now having difficulty sleeping at night. Pt reports he is able to drive for 10 min without increased pain. Pt is I with HEP Pt has experienced a regression with pain over the past few weeks for unknown reasons. Goals Goal 1:: Decrease R knee pain x 50% to aid with sleep Goal Progress: Progressing Goal 2:: Increase pt's tolerance for driving to greater than 10 min without experiencing increased R LE sx's Goal Progress: Goal Met Goal 3:: I with hep Goal Progress: Goal Met Plan Plan: Discontinue at this time. Consider RTD for swelling purposes D/C Information d/c sentence: If there are questions or concerns regarding this patient's physical therapy, please feel free to call me at [phone]. Thank you for the referral of this patient. Sincerely, Cam Santillan, PT, ATC Balance/Gait/Functional tests Balance/Special Test Scores Lower Extremity Functional Score: 75 Improvement % Improvement: 45
== END 2024-06-06 19:00 | disposition home or self-care (01) ==
LOC: PT 07:30
PROVIDERS: PCP Family Medicine; Referring Provider Orthopaedic Surgery; Visit Provider Orthopaedic Surgery
DX: M76.30 Iliotibial band syndrome, unspecified leg (principal)
CPT/HCPCS: 97110; 97161; 97530

== ENCOUNTER → 2024-07-05 | Outpatient (CLI) | payer MEDICARE, OTHER, SELFPAY ==
[2023-03-02 15:44] VITALS: BMI 25.8
[2024-07-05 17:55] LABS: Absolute Lymphocyte Count 1.62 X10^3/uL (0.83-4.51); Absolute Neutrophil Count 4.5 X10^3/uL (2.0-7.7); Basophil# 0.03 X10^3/uL; Basophil% 0.4 % (0-1); Eosinophil# 0.06 X10^3/uL; Eosinophils% 0.9 % (0-5); Hematocrit 35.6 % (40-54); Hemoglobin 12.3 g/dL (13.0-16.5); Lymphocyte # 1.62 X10^3/ul (0.83-4.51); Lymphocyte % 24.3 % (19-41); Mean Corp Hgb Conc 34.6 g/dL (32-36); Mean Corpuscular Hgb 30.8 pg (27.0-32.0); Mean Corpuscular Volume 89.2 fL (80-94); Mean Platelet Vol. 9.9 fl (6.2-12.0); Monocyte# 0.48 X10^3/uL; Monocyte% 7.2 % (0-10); NRBC Flagged by Analyzer 0 % (0-5); Neutrophil # 4.47 X10^3/uL (2.7-7.7); Neutrophil % 66.9 % (47-70); Platelet Count 199 K/mm3 (150-450); RBC Distribution Width CV 13.6 % (11.6-14.6); RBC Distribution Width SD 44.4 fl (35.1-43.9); Red Blood Count 3.99 M/mm3 (4.6-6.2); White Blood Count 6.7 K/mm3 (4.4-11.0)
[2024-07-05 18:28] LABS: AST(SGOT) 35 U/L (<=37); Alanine Aminotransfer ALT/SGPT 33 U/L (<=46); Albumin, Serum 4.3 g/dL (3.4-4.8); Alkaline Phosphatase 51 U/L (40-129); Anion Gap 10 (5-15); BUN 16 mg/dL (4-19); BUN/Creat Ratio 11.9 RATIO (10-20); Calcium,Total 9.4 mg/dL (7.6-11.0); Carbon Dioxide 25.9 mmol/L (21.0-32.0); Chloride 103 mmol/L (98-108); Creatinine, Serum 1.32 mg/dL (0.70-1.20); EST Glomerular Filtration Rate 58 (>60); Globulin 2.2 g/dL (2.2-4.2); Glucose 117 mg/dL (70-99); Potassium 4.3 mmol/L (3.3-5.1); Protein, Total 6.5 g/dL (5.9-8.4); Sodium Level 139 mmol/L (133-145); Total Bilirubin 0.48 mg/dL (0.00-1.30)
== END | disposition home or self-care (01) ==
LOC: MTLAB 14:31
PROVIDERS: PCP Family Medicine; Referring Provider Internal Medicine Rheumatology; Visit Provider Internal Medicine Rheumatology
DX: E29.1 Testicular hypofunction (principal); N42.9 Disorder of prostate, unspecified
CPT/HCPCS: 36415; 80053; 84153; 84154; 84402; 84403; 85025

== ENCOUNTER 2024-09-28 07:00 | Outpatient (RCR) | payer MEDICARE, OTHER, SELFPAY ==
[2023-03-02 15:44] VITALS: BMI 25.8
--- NOTE | 2024-08-17 07:20 | HP.PTEVAL_ITS ---
Patient's Visit Information Visit Information Visit Information: VAUGHN DINERO is a 69 year old M referred to Physical Therapy by Dr. Reginaldo Blank DO with a diagnosis of Patellar tendonitis, IT band. Date of Evaluation: 07/24/24 Physical Therapist: Cam Santillan, PT, ATC Visit Plan Frequency: 2x /Week Duration: 3 Weeks Plan: R knee stretching and strengthening, balance and proprio, core stre ngthening, bike, and HEP Subjective Subjective: DOS: 2021. Pt reports he had a R TKA performed at that time. Pt reports he was doing really good, but then all the sudden his R knee started to swell up on him. Pt reports he has had his R knee drained several times since that surgery, but the swelling always comes back. Pt reports he has had x-rays wh8ich revealed that the prosthetic is aligned correctly. Pt notes his R knee will lock up on him on occasion. Pt reports he has difficulty with sleep at this time as he is unable to lye in any position for an extended period of time. Pt reports he has numbness in R lateral knee all the time. Pt reports his R knee will buckle on him occasionally, but he has experienced no falls. 5/10 pain at rest, 8/10 pain at worst (when he is trying to sleep) Pain R knee: Pain Intensity (Out of 10): 2 Pain Intensity Range: 8 Objective Objective: Neuro: B LE sensation is WNL to light touch Palpation: Pt has minimal soreness on inferior patellar tendon and distal IT band. No obvious deformity present at this time. ROM: L knee 0-135 degrees; R knee 0-135 degrees MMT: L knee flex= 45, ext= 41; R knee flex= 37, ext= 38 #F Balance/Special Test Scores Lower Extremity Functional Score: 49 Goals Goal 1:: Increase R knee strength x 5-10 #F to aid with IADL's Goal Time Frame: 4-6 Weeks Goal 2:: Decrease R knee pain x 50% to aid with sleep Goal Time Frame: 4-6 Weeks Goal 3:: I with HEP Goal Time Frame: 4-6 Weeks Rehabilitation Potential Physical Therapy Diagnosis: Pt has R knee pain, weakness, and difficulty with sleep secondary to R knee tendinopathy. Rehabilitation Potential: Good Anticipated Interventions Patient/Client Instruction: Educate patient on: Condition and Plan of Care For the Purpose of:: To improve self management Therapeutic Exercise to Include: Strength training, Endurance training, Balance training, Flexibilty training, Active ROM and Dynamic Lumbar Stabilization For the Purpose of:: To decrease pain, To increase ROM and To improve muscle performance and motor function Cryotherapy (ice pack, ice massage): Yes For the Purpose of:: To decrease pain Text: Thank you for the opportunity to evaluate your patient. For Medicare and Medicare HMO plans, please review the plan of care and approve it. It will need to be FAXED BACK to us at [phone] for Medicare purposes. For Medicare only, by signing this I certify the plan of care. Please let me know if there are questions or concerns regarding this plan of care. Physician Signature: Date:
--- NOTE | 2024-08-17 07:35 | HP.PTREVAL ---
Re-Evaluation Intro: Dr. Reginaldo Blank, DO, It has been my pleasure to treat VAUGHN DINERO over the last 7 visits for Patellar tendonitis, IT band. Please see the progress note below for an update on the physical therapy plan of care! Subjective Subjective: I have made a lot of improvement, but I am not where I want to be at yet. Pt notes his balance is still off, and he is limited with IADL's that he used to be able to do (climb a ladder, negotiate stairs) Objective Objective/Function: R knee pain ranges from 2-6/10 R knee MMT: flex= 44, ext= 56 #F Pt is progressing with a HEP FGA 23/30- indicating a balance deficit at this time Plan Plan Plan: R knee stretching and strengthening, balance and proprio, core strengthening, bike, and HEP Balance/Gait/Functional tests Balance/Special Test Scores Functional Gait Assessment Score: 23 % Disability: 23.3400 Lower Extremity Functional Score: 49 Goals Goals Goal 1:: Increase R knee strength x 5-10 #F to aid with IADL's Goal Time Frame: 4-6 Weeks Goal Progress: Goal Met Goal 2:: Decrease R knee pain x 50% to aid with sleep Goal Time Frame: 4-6 Weeks Goal Progress: Progressing Goal 3:: I with HEP Goal Time Frame: 4-6 Weeks Goal Progress: Progressing Goal 4:: Increase FGA score to 25/30 to aid with fall prevention Goal Progress: New goal Anticipated Interventions Anticipated Interventions Patient/Client Instruction: Educate patient on: Condition and Plan of Care For the Purpose of:: To improve self management Therapeutic Exercise to Include: Strength training, Endurance training, Balance training, Flexibilty training, Active ROM and Dynamic Lumbar Stabilization For the Purpose of:: To decrease pain, To increase ROM and To improve muscle performance and motor function Cryotherapy (ice pack, ice massage): Yes For the Purpose of:: To decrease pain Re-Evaluation Ending Re-evaluation ending: Please do not hesitate to contact me at [phone] by phone or if you have questions or concerns regarding this new plan of care! Sincerely, Cam Santillan, PT, ATC
--- NOTE | 2024-09-28 07:31 | HP.PTDCSUM ---
Discharge Summary D/C summary: It has been my pleasure to treat VAUGHN DINERO referred by Dr. Reginaldo Blank DO, with the diagnosis of Patellar tendonitis, IT band for a total of 16 visit(s). Discharge Date: Please see the following information for a summary of their discharge status. Subjective Subjective: Pt reports he is doing better, but still has pain Pain R knee: Pain Intensity (Out of 10): 3 Overall Improvement % Improvement: 75 Objective Objective/Function: R knee MMT: flex= 38, ext= 48 #F 3/10 pain Pt is I with HEP FGA 30/30 Goals Goal 1:: Increase R knee strength x 5-10 #F to aid with IADL's Goal Progress: Goal Met Goal 2:: Decrease R knee pain x 50% to aid with sleep Goal Progress: Goal Met Goal 3:: I with HEP Goal Progress: Goal Met Goal 4:: Increase FGA score to 25/30 to aid with fall prevention Goal Progress: Goal Met Plan Plan: Discharge to HEP D/C Information d/c sentence: If there are questions or concerns regarding this patient's physical therapy, please feel free to call me at [phone]. Thank you for the referral of this patient. Sincerely, Cam Santillan, PT, ATC Balance/Gait/Functional tests Balance/Special Test Scores Functional Gait Assessment Score: 30 % Disability: 0 Lower Extremity Functional Score: 80 Improvement % Improvement: 75
== END 2024-09-28 19:00 | disposition home or self-care (01) ==
LOC: PT 07:00
PROVIDERS: PCP Family Medicine; Referring Provider Orthopaedic Surgery; Visit Provider Orthopaedic Surgery
DX: M76.51 Patellar tendinitis, right knee (principal); M76.31 Iliotibial band syndrome, right leg
CPT/HCPCS: 97110; 97161; 97530

== ENCOUNTER → 2024-10-08 | Outpatient (CLI) | payer MEDICARE, OTHER, SELFPAY ==
[2023-03-02 15:44] VITALS: BMI 25.8
[2024-10-08 10:56] LABS: Hematocrit 36.4 % (40-54); Hemoglobin 12.2 g/dL (13.0-16.5); Immature Granulocytes Count 0.010 X10^3/uL (0.0-0.0); Mean Corp Hgb Conc 33.5 g/dL (32-36); Mean Corpuscular Volume 90.5 fL (80-94); Mean Platelet Vol. 10.2 fl (6.2-12.0); NRBC Flagged by Analyzer 0 % (0-5); Platelet Count 200 K/mm3 (150-450); RBC Distribution Width CV 13.6 % (11.6-14.6); RBC Distribution Width SD 45.2 fl (35.1-43.9); Red Blood Count 4.02 M/mm3 (4.6-6.2); White Blood Count 3.9 K/mm3 (4.4-11.0)
[2024-10-08 11:16] LABS: Albumin, Serum 4.0 g/dL (3.4-4.8); BUN 12 mg/dL (4-19); BUN/Creat Ratio 11.3 RATIO (10-20); Globulin 2.4 g/dL (2.2-4.2); Glucose 114 mg/dL (70-99)
[2024-10-08 11:17] LABS: AST(SGOT) 39 U/L (<=37); Alanine Aminotransfer ALT/SGPT 30 U/L (<=46); Alkaline Phosphatase 65 U/L (40-129); Anion Gap 10 (5-15); Calcium,Total 9.2 mg/dL (7.6-11.0); Carbon Dioxide 25.3 mmol/L (21.0-32.0); Chloride 105 mmol/L (98-108); Potassium 4.0 mmol/L (3.3-5.1)
== END | disposition home or self-care (01) ==
LOC: MTLAB 08:09
PROVIDERS: PCP Family Medicine; Referring Provider Internal Medicine Rheumatology; Visit Provider Internal Medicine Rheumatology
DX: M06.4 Inflammatory polyarthropathy (principal); M17.0 Bilateral primary osteoarthritis of knee; Z79.899 Other long term (current) drug therapy
CPT/HCPCS: 36415; 80053; 85025

== ENCOUNTER → 2024-12-04 | Outpatient (CLI) | payer MEDICARE, OTHER, SELFPAY ==
[2023-03-02 15:44] VITALS: BMI 25.8
[2024-12-04 19:02] LABS: Hematocrit 32.4 % (40-54); Hemoglobin 11.1 g/dL (13.0-16.5); Immature Granulocytes Count 0.010 X10^3/uL (0.0-0.0); Mean Corp Hgb Conc 34.3 g/dL (32-36); Mean Corpuscular Volume 89.0 fL (80-94); Mean Platelet Vol. 10.7 fl (6.2-12.0); NRBC Flagged by Analyzer 0 % (0-5); Platelet Count 186 K/mm3 (150-450); RBC Distribution Width CV 13.9 % (11.6-14.6); RBC Distribution Width SD 44.5 fl (35.1-43.9); Red Blood Count 3.64 M/mm3 (4.6-6.2); White Blood Count 4.2 K/mm3 (4.4-11.0)
[2024-12-04 19:38] LABS: AST(SGOT) 34 U/L (<=37); Alanine Aminotransfer ALT/SGPT 26 U/L (<=46); Albumin, Serum 4.1 g/dL (3.4-4.8); Alkaline Phosphatase 52 U/L (40-129); Anion Gap 14 (5-15); BUN 17 mg/dL (4-19); BUN/Creat Ratio 15.5 RATIO (10-20); Calcium,Total 9.1 mg/dL (7.6-11.0); Carbon Dioxide 21.4 mmol/L (21.0-32.0); Chloride 101 mmol/L (98-108); Globulin 2.2 g/dL (2.2-4.2); Glucose 135 mg/dL (70-99); Potassium 3.9 mmol/L (3.3-5.1)
== END | disposition home or self-care (01) ==
LOC: MTLAB 15:07
PROVIDERS: PCP Family Medicine; Referring Provider Internal Medicine Rheumatology; Visit Provider Internal Medicine Rheumatology
DX: M06.4 Inflammatory polyarthropathy (principal); M25.511 Pain in right shoulder; M17.0 Bilateral primary osteoarthritis of knee
CPT/HCPCS: 36415; 80053; 85025

== ENCOUNTER → 2025-01-10 | Outpatient (CLI) | payer MEDICARE, OTHER, SELFPAY ==
[2023-03-02 15:44] VITALS: BMI 25.8
[2025-01-10 07:21] LABS: Hematocrit 36.6 % (40-54); Hemoglobin 12.7 g/dL (13.0-16.5); Mean Corp Hgb Conc 34.7 g/dL (32-36); Mean Corpuscular Volume 89.3 fL (80-94); Mean Platelet Vol. 9.9 fl (6.2-12.0); Platelet Count 223 K/mm3 (150-450); RBC Distribution Width CV 14.7 % (11.6-14.6); RBC Distribution Width SD 47.3 fl (35.1-43.9); Red Blood Count 4.10 M/mm3 (4.6-6.2); White Blood Count 4.5 K/mm3 (4.4-11.0)
[2025-01-10 08:21] LABS: AST(SGOT) 37 U/L (<=37); Alanine Aminotransfer ALT/SGPT 29 U/L (<=46); Albumin, Serum 4.3 g/dL (3.4-4.8); Alkaline Phosphatase 58 U/L (40-129); Anion Gap 10 (5-15); BUN 14 mg/dL (4-19); BUN/Creat Ratio 12.1 RATIO (10-20); Calcium,Total 9.5 mg/dL (7.6-11.0); Carbon Dioxide 27.4 mmol/L (21.0-32.0); Chloride 103 mmol/L (98-108); Cholesterol 150 mg/dL (<=200); Globulin 2.5 g/dL (2.2-4.2); Glucose 94 mg/dL (70-99); Low Density Lipoprotein Calc. 55 mg/dL; PSA,Total- Diagnostic 0.44 ng/mL (0.00-4.00); Potassium 4.1 mmol/L (3.3-5.1); Triglycerides 91 mg/dL; Very Low Density Lipoprotein 18 mg/dL (5-40); Vitamin D,25 Hydroxy 40.8 ng/mL (30-100); cholesterol:hdl ratio screen 1.91
[2025-01-17 09:09] LABS: Testosterone, % Free 2.00 % (1.50-4.20); Testosterone, Free 3.44 ng/dL (5.00-21.00)
== END | disposition home or self-care (01) ==
LOC: LAB 06:08
PROVIDERS: PCP Family Medicine; Referring Provider Physician Assistant Medical; Visit Provider Physician Assistant Medical
DX: E29.1 Testicular hypofunction (principal); E78.2 Mixed hyperlipidemia; E04.0 Nontoxic diffuse goiter; E55.9 Vitamin D deficiency, unspecified; N42.9 Disorder of prostate, unspecified
CPT/HCPCS: 36415; 80053; 80061; 82306; 84153; 84402; 84403; 84443; 85027

== ENCOUNTER → 2025-01-25 | Outpatient (CLI) | payer MEDICARE, OTHER, SELFPAY ==
[2023-03-02 15:44] VITALS: BMI 25.8
--- NOTE | 2025-01-25 13:15 | RAD_ITS ---
PROCEDURE: WRIST MIN 3 VIEWS 01/25/2025 REASON FOR EXAM: PAIN IN WRIST TECHNIQUE: Procedure Code: RADWR Modality: DX Procedure: WRIST MIN 3 VIEWS Laterality: Right COMPARISON: None FINDINGS: Bones: There appears to be normal mineralization of the osseous structures of the right wrist. There are no fractures or dislocations. A 2 mm lucency is seen in the capitate bone. This has a sclerotic margin and is most compatible with a benign bony cyst. Joints: Moderate degenerative osteoarthritic changes are seen involving the 1st carpometacarpal joint. Remaining joints are well preserved. Soft tissues: No appreciable soft tissue swelling is seen. 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 RAD/Wrist min 3 Views IMPRESSION: There appears to be normal mineralization of the osseous structures of the righ t wrist. There are no fractures or dislocations. A 2 mm lucency is seen in the capitate bone. This has a sclerotic margin and is most compatible with a benign bony cyst. Moderate degenerative osteoarthritic changes are seen involving the 1st carpome tacarpal joint. 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 Reading Location: [id number]
--- OUTSIDE RECORDS SUMMARY | 2025-01-25 15:35 | XMS RPT_ITS | CCD ---
Author Organization [facility] Care Team Providers Care Family Health Nurse Practitioner Name Role Phone Kavya Dinero Unavailable PAGE, ARCADIO Y Unavailable Unavailable PAGE, ARCADIO Y Unavailable Unavailable GARTH, TRUE A Unavailable Unavailable PAGE, ARCADIO Y Unavailable Unavailable JENNIE HAYES Unavailable Unavailable GARTHTRUE GAVIN Unavailable Unavailable PAGE, ARCADIO Y Unavailable Unavailable PAGE, ARCADIO Y Unavailable Unavailable PAGE, ARCADIO Y Unavailable Unavailable PAGE, ARCADIO Y Unavailable Unavailable Yael WOOD, Nisa Rhodes Unavailable Dr. True Ibarra Primary Care Provider [phone] Dr. True Ibarra Referring Provider [phone] Dr. Ricardo Garner Attending Provider [phone] Dr. Reginaldo Blank Attending Provider [phone] Cody Cui MD Unavailable Dr. True Ibarra Primary Care Provider [phone] Dr. True Ibarra Referring Provider [phone] Dr. Reginaldo Blank Attending Provider [phone] Dr. Ricardo Garner Attending Provider [phone] BIPIN Elizabeth Attending Provider [phone] Dr. True Ibarra Primary Care Provider [phone] Dr. True Ibarra Referring Provider Dr. Ricardo Garner Attending Provider [phone] Reginaldo Nvaa Attending Provider BIPIN Gordon Attending Provider Dr. True Ibarra Primary Care Provider [phone] True Ibarra Referring Provider BIPIN Gordon Other Provider Dr. Ricardo Garner Attending Provider Dr. True Ibarra Primary Care Provider [phone] Dr. True Ibarra Referring Provider Dr. Reginaldo Nava Attending Provider BIPIN Gordon Attending Provider BIPIN Gordon Other Provider [phone] Dr. Ricardo Garner Attending Provider [phone] Reginaldo Blank Attending Provider [phone] Dr. True Ibarra Primary Care Provider [phone] Dr. True Ibarra Referring Provider Roof 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, 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 Cody Hankins Attending Provider Dr. Ricardo Garner Attending Provider [phone] True Ibarra Primary Care Provider [phone] Dr. True Ibarra Referring Provider Britni 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, 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 Cody Haknins Attending Provider Dr. Reginaldo Blank Attending Provider [phone] Dr. Ricardo Garner Attending Provider [phone] True Ibarra Primary Care Provider [phone] True Ibarra Referring Provider Dr. Reginaldo Blank Attending Provider Britni 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, 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 Cody Hankins Attending Provider Dr. Ricardo Garner Attending Provider Jacque 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, 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 Ilsa Attending Provider Dr. True Ibarra Primary Care Provider [phone] Dr. True Ibarra Referring Provider Dr. Reginaldo Blank Attending Provider Dr. True Ibarra Primary Care Provider [phone] Dr. True Ibarra Referring Provider Dr. True Ibarra Primary Care Provider [phone] True Ibarra Referring Provider Jacque 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, 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 Ilsa Attending Provider Dr. Reginaldo Blank Attending Provider Dr. Ricardo Garner Attending Provider Roof 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, 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 Cody Hankins Attending Provider Roof 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, 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 Cody Hankins Referring Provider Dr. Reginaldo Nava Attending Provider Dr. True Ibarra Primary Care Provider [phone] Dr. True Ibarra Referring Provider MD Dakota Guillermo Attending Provider [phone] Dr. True Ibarra Primary Care Provider [phone] Dr. Ricardo Garner Attending Provider [phone] True Ibarra Referring Provider [phone] Dr. Reginaldo Blank Attending Provider Dr. True Ibarra Primary Care Provider [phone] Dr. True Ibarra Referring Provider [phone] Dr. Ricardo Garner Attending Provider Dr. True Ibarra DO Primary Care Provider [phone] Dr. True Ibarra DO Referring Provider [phone] Dr. Reginaldo Blank DO Attending Provider Dr. Ricardo Garner MD Attending Provider Roof 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Cody Attending Provider Elijah CLIFTON, Dr. Hair Attending Provider Dariusz CLIFTON, Dr. Barrera Attending Provider Dariusz CLIFTON, Dr. Barrera Referring Provider Jacque 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, Ilsa Attending Provider Jacque 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, Ilsa Referring Provider Abhay MIRZA, Dr. Hair Referring Provider Garth MIRZA, Dr. Colmenares Primary Care Provider Abhay MIRZA, Dr. Hair Attending Provider Garth MIRZA, Dr. Colmenares Referring Provider Dariusz CLIFTON, Dr. Barrera Attending Provider Dariusz CLIFTON, Dr. Barrera Referring Provider KAVYA GLASER Other Provider Elijah CLIFTON, Dr. Hair Attending Provider Garth MIRZA, Dr. Colmenares Primary Care Provider Abhay MIRZA, Dr. Hair Attending Provider Abhay MIRZA, Dr. Hair Referring Provider Garth MIRZA, Dr. Colmenares Primary Care Physician Abhay MIRZA, Dr. Hair Attending Physician Dariusz CLIFTON, Dr. Barrera Attending Physician Dariusz CLIFTON, Dr. Barrera Referring Provider GarthTrue mackey Primary Care Unavailable Jacque 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, Ilsa Attending Unavailable Garth, True Referring Unavailable Garth, True Primary Care Unavailable Reginaldo Nava Attending Unavailable True Ibarra Referring Unavailable Holly Arzola Attending Unavailable Holly Arzola Referring Unavailable Garth, True Primary Care Unavailable Garth, True Primary Care Unavailable GarthTrue Referring Unavailable Reginaldo Blank Attending Unavailable Garth, True Primary Care Unavailable Ricardo Garner Attending Unavailable Cody Ryder Attending Unavailable Garth, True Primary Care Unavailable Garth, True Referring Unavailable Garth, True Referring Unavailable GarthTrue mackey Primary Care Unavailable Reginaldo Blank Attending Unavailable Garth, True Referring Unavailable Garth, True Primary Care Unavailable Reginaldo Nava Attending Unavailable Vellanki, Holly Attending Unavailable Vellanki, Holly Referring Unavailable Garth, True Primary Care Unavailable Vellanki, Holly Referring Unavailable Vellanki, Holly Attending Unavailable Garth, True Primary Care Unavailable Garth, True Primary Care Unavailable KAVYA CUELLAR Referring Unavailable KAVYA CUELLAR Attending Unavailable Garth, True Primary Care Unavailable Garth, True Referring Unavailable PraReginaldo hankins Attending Unavailable Garth, True Primary Care Unavailable Borelfego, Reginaldo Attending Unavailable Abhay, Reginaldo Referring Unavailable Vellanki, Holly Referring Unavailable Vellanki, Holly Attending Unavailable Garth, True Primary Care Unavailable Garth, True Primary Care Unavailable Jacque 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, Ilsa Referring Unavailable Jacque 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, Ilsa Attending Unavailable Vellanki, Holly Referring Unavailable Garth, True Primary Care Unavailable KAVYA CUELLAR Consulting Unavailable Vellanki, Holly Attending Unavailable Garth, True Primary Care Unavailable Reginaldo Blank Attending Unavailable Reginaldo Blank Referring Unavailable Abhay, Reginaldo Attending Unavailable Garth, True Referring Unavailable Allergies Allergy Classification Reported Allergen(s) Allergy Type Date of Onset Reaction(s) Facility (1 source) bee pollen; Translations: [POLLEN] allergy to substance 4 [facility] Work Phone: (3 sources) ketorolac Drug Allergy 4 thoat swelling [facility] Work Phone: (3 sources) Sulfonamides (Antibiotic); Translations: [SULFA] drug allergy 4 lips swelling [facility] Work Phone: (20 sources) tetracycline; Translations: [TETRACYCLINE] Drug Allergy 4 mouth sores, Other [facility] Work Phone: (3 sources) tolmetin Drug Allergy 4 hives [facility] Work Phone: (2 sources) [employer] Animal[employer]; Translations: [ANIMALS] allergy to substance 0 [facility] Work Phone: (2 sources) Mold Extract; Translations: [MOLD] Drug Allergy 0 [facility] Work Phone: (2 sources) PLANT POLLENS (HAY FEVER); Translations: [PLANT POLLENS (HAY FEVER)] allergy to substance 5 [facility] Work Phone: (20 sources) Ketorolac; Translations: [ketorolac tromethamine] Drug Allergy 2 Shortness of breath [facility] (20 sources) Pollen Allergy to substance 2 Unknown [facility] (20 sources) Sulfonamides (Antibiotic); Translations: [Sulfa (Sulfonamide Antibiotics)] Allergy to substance 2 Swelling [facility] (20 sources) Tolmetin; Translations: [tolmetin sodium] Drug Allergy 2 Hives [facility] (1 source) Pollen Drug allergy (disorder) 5 [facility] Repository Medications Current Medications Medication Drug Class(es) Dates Sig (Normalized) Sig (Original) acetaminophen 325 mg / oxyCODONE hydrochloride 7.5 mg oral tablet (20 sources) Opioid Agonist Start: 03-24-2023 Start: 03-24-2023 take 1 tablet by graciela three times daily Oxycodone-Acetaminophen Active 1 TABLET PO THREE TIMES A DAY March 24, 2023 10:04am Start: 08-25-2022 End: 03-24-2023 Oxycodone-Acetaminophen 7.5- 325 mg tablet Discontinued 1 {tbl} PO 0 August 25, 2022 12:00am March 24, 2023 10:06am Start: 08-25-2022 End: 03-24-2023 Oxycodone-Acetaminophen Disc ontinued 1 TABLET PO August 25, 2022 12:00am March 24, 2023 10:06am Start: 11-09-2020 End: 04-14-2022 Oxycodone-Acetaminophen 7.5- 325 mg tablet Discontinued 1 {tbl} PO THREE TIMES A DAY November 09, 2020 12:00am April 14, 2022 9:19am Start: 11-09-2020 End: 04-14-2022 take 1 tablet by mouth three times daily Oxycodone-Acetaminophen Discontinued 1 TABLET PO THREE TIMES A DAY November 09, 2020 12:00am April 14, 2022 9:19am Start: 01-10-2020 End: 01-25-2020 Oxycodone-Acetaminophen 1 EA CH tablet Discontinued 1 - 2 NMA PO TWICE A DAY as needed for pain January 10, 2020 12:00am January 25, 2020 8:08am Start: 01-10-2020 End: 01-25-2020 Oxycodone-Acetaminophen Disc ontinued 1 - 2 EACH PO TWICE A DAY January 10, 2020 12:00am January 25, 2020 8:08am Start: 10-16-2019 take 1 tablet by graciela th every eight hours as needed OXYCODONE-ACETAMINOPHEN 7.5-325 MG TABS 1 tablet by mouth every eight hours as needed oxycodone-acetaminophen [id number] Elida Whitehead AT Start: 03-31-2018 End: 01-07-2020 Oxycodone-Acetaminophen 1 EA CH tablet Discontinued 1 NMA PO TWICE A DAY as needed for Pain March 31, 2018 1:00am January 07, 2020 9:14am Start: 03-31-2018 End: 01-07-2020 Oxycodone-Acetaminophen Disc ontinued 1 EACH PO TWICE A DAY March 31, 2018 1:00am January 07, 2020 9:14am Start: 01-16-2016 End: 09-16-2016 Oxycodone-Acetaminophen 1 EA CH tablet Discontinued 1 NMA PO 4 TIMES DAILY NEEDED as needed for Pain January 16, 2016 2:12pm September 16, 2016 10:55am Start: 01-16-2016 End: 09-16-2016 Oxycodone-Acetaminophen Disc ontinued 1 EACH PO 4 TIMES DAILY NEEDED January 16, 2016 2:12pm September 16, 2016 10:55am Start: 06-06-2015 take 1 tablet by graciela th every six hours as needed PERCOCET 7.5-325 MG TABS take 1 po q6h a s needed OXYCODONE-ACETAMINOPHEN [id number] True Ibarra DO Start: 01-10-2014 End: 09-16-2016 Oxycodone-Acetaminophen 1 TA BLET tablet Discontinued 1 - 2 {tbl} PO EVERY 4 HOURS NEEDED as needed for Pain 60 January 10, 2014 12:00am September 16, 2016 10:53am Start: 01-10-2014 End: 09-16-2016 take 1 tablet by mouth every four hours as needed Oxycodone-Acetaminophen Discontinued 1 - 2 TABLET PO EVERY 4 HOURS NEEDED 60 January 10, 2014 12:00am September 16, 2016 10:53am Start: 05-25-2013 End: 06-06-2015 PERCOCET 7.5-325 MG TABS prn OXYCODONE-ACETAMINOPHEN [id number] True Ibarra DO aspirin 81 mg oral tablet (20 sources) Platelet Aggregation Inhibitor, Nonsteroidal Anti-inflammatory Drug Start: 11-10-2020 take 1 capsule by mouth once daily Adult Low Dose A spirin 81 mg tablet,delayed release (DR/EC) 1 tablet by mouth aspirin [id number] Elida Whitehead AT prasterone 25 mg oral capsul e (20 sources) Start: 03-31-2018 End: 11-05-2020 take 1 capsule by mouth once daily take 1 tablet by mouth once rachel y DHEA 25 MG TABS One tablet by mouth daily PRASTERONE (DHEA) [id number] Reginaldo Baxter DO DULoxetine 60 mg delayed release oral capsule (4 sources) Serotonin and Norepinephrine Reuptake Inhibitor Start: 03-21-2024 take 1 capsule by mouth once daily folic acid 1 mg oral tablet (8 sources) Start: 02-21-2023 take 2 tablets by mouth once daily Start: 02-21-2023 take 2 mg by mouth once daily Folic Acid Active 2 MG PO DAILY February 21, 2023 1:00am hydroxychloroquine sulfate 2 00 mg oral tablet (7 sources) Antimalarial, Antirheumatic Agent Start: 07-19-2024 Start: 09-01-2023 End: 07-19-2024 take 1 tablet by mouth once daily Hydroxychloroquine (Plaquenil) 200 mg tablet Discontinued 200 mg PO DAILY September 01, 2023 12:00am July 19, 2024 3:35pm methotrexate 2.5 mg oral tablet (8 sources) Folate Analog Metabolic Inhibitor Start: 02-21-2023 take 5 tablets by mouth every week Start: 02-21-2023 take 12.5 mg by mout h every week Methotrexate Sodium Active 12.5 MG PO EVERY WEEK February 21, 2023 1:00am methylphenidate hydrochloride 20 mg oral tablet (20 sources) Central Nervous System Stimulant Start: 11-05-2020 take 1 tablet by mouth twice daily Multivitamin With Folic Acid (20 sources) Start: 01-01-2014 take 1 tablet by mouth once daily Multivitamin With Folic Acid Active 1 TABLET PO DAILY January 01, 2014 3:01pm Start: 01-01-2014 take 1 tablet by graciela th once daily Multivitamin With Folic Acid Active 1 TABLET PO DAILY December 31, 2013 11:00pm Start: 01-01-2014 take 1 tablet by graciela th once daily Multivitamin With Folic Acid Active 1 TABLET PO DAILY January 01, 2014 12:00am Multivitamin With Folic Acid 1 TABLET tablet (4 sources) Start: 01-01-2014 take 1 tablet by graciela th once daily Start: 01-01-2014 take 1 tablet by graciela th once daily Multivitamin With Folic Acid 1 TABLET tablet Active 1 {tbl} PO DAILY January 01, 2014 12:00am omeprazole 40 mg delayed release oral capsule (20 sources) Proton Pump Inhibitor Start: 10-17-2018 End: 12-08-2021 take 1 capsule by mouth once daily Start: 01-12-2016 End: 03-23-2017 take 1 capsule by mouth once daily Omeprazole 40 MG capsule Discontinued 40 mg PO DAILY January 12, 2016 12:00am March 23, 2017 9:17am tadalafil 20 mg oral tablet (20 sources) Phosphodiesterase 5 Inhibitor Start: 12-04-2020 take 1 tablet by mouth once daily as needed 60 actuat testosterone 20.25 mg/actuat topical gel (20 sources) Androgen Start: 03-24-2023 End: 07-19-2024 Start: 03-24-2023 Testosterone A ctive TOPICAL DAILY March 24, 2023 1:00am Start: 11-09-2021 End: 03-24-2023 inject 200 mg by intramuscular injection every week Testosterone Cypionate 200 mg/mL oil Discontinued 200 mg IM EVERY WEEK December 08, 2021 2:36pm March 24, 2023 10:05am Start: 11-09-2021 End: 03-24-2023 inject 200 mg by intramuscular injection every week Testosterone Cypionate Discontinued 200 MG IM EVERY WEEK December 08, 2021 2:36pm March 24, 2023 10:05am Start: 10-16-2019 TESTOSTERONE 5 0 MG/5GM (1%) GEL 2 once a day testosterone [id number] Elida Whitehead AT Start: 06-06-2015 TESTIM 50 MG/5 GM (1%) GEL one pump on each arm daily TESTOSTERONE [id number] True Ibarra DO Start: 01-01-2014 Testosterone A ctive 6 GM TD DAILY January 01, 2014 3:01pm Start: 01-01-2014 End: 03-10-2022 Testosterone 5 GM gel Discontinued 6 g TD DAILY January 01, 2014 12:00am March 10, 2022 9:35am Start: 01-01-2014 End: 03-10-2022 Testosterone Discontinued 6 GM TD DAILY January 01, 2014 12:00am March 10, 2022 9:35am Start: 01-01-2014 End: 03-10-2022 Testosterone Discontinued 6 GM TD DAILY December 31, 2013 11:00pm March 10, 2022 8:35am Start: 01-01-2014 Testosterone A ctive 6 GM TD DAILY December 31, 2013 11:00pm Start: 01-01-2014 Testosterone A ctive 6 GM TD DAILY January 01, 2014 12:00am Start: 05-25-2013 End: 06-06-2015 TESTIM GEL as directed 05/25 TESTOSTERONE GEL [id number] True Yogesh Garth MIRZA Start: 05-25-2013 TESTIM GEL as directed TESTOSTERONE GEL [id number] Jennie Hayes Completed/Discontinued Medications Medication Drug Class(es) Dates Sig (Normalized) Sig (Original) [id number] actuat albuterol 0.09 mg/actuat metered dose inhaler (20 sources) beta2-Adrenergic Agonist Start: 03-22-2016 End: 09-16-2016 Albuterol Sulfate (Ventolin Hfa (Sp)) 1 INHALER inhaler Discontinued 1 - 2 NMA INHALATION EVERY 4 HOURS NEEDED as needed for Wheezing March 22, 2016 1:00am September 16, 2016 10:49am Start: 03-22-2016 End: 09-16-2016 Albuterol Sulfate (Ventolin Hfa (Sp)) 1 INHALER inhaler Discontinued 1 - 2 PUFF INHALATION EVERY 4 HOURS NEEDED March 22, 2016 1:00am September 16, 2016 10:49am Start: 06-06-2015 VENTOLIN HFA 1 08 (90 Base) MCG/ACT AERS 2 inhalations every 4 hours as needed for shortness of breath or wheezing ALBUTEROL SULFATE [id number] True Yogesh Garth ALPRAZolam 0.5 mg oral tablet (20 sources) Benzodiazepine Start: 08-27-2015 End: 09-16-2016 take 1 tablet by mouth once daily as needed for anxiety Alprazolam 0.5 MG tablet Discontinued 0.5 mg PO DAILY as needed for Anxiety June 07, 2016 12:00am September 16, 2016 10:49am amoxicillin 875 mg / clavulanate 125 mg oral tablet (3 sources) Penicillin-class Antibacterial Start: 11-14-2014 End: 11-24-2014 take 1 tablet by mouth twice daily AUGMENTIN 875-125 MG TABS One tablet by mouth twice daily for 10 days. AMOXICILLIN-POT CLAVULANATE [id number] Christensen M Alam Start: 11-14-2014 End: 11-24-2014 take 1 tablet by mouth twice daily AUGMENTIN XR 1000-62.5 MG [id number] One tablet by mouth twice daily for 10 days. AMOXICILLIN-POT CLAVULANATE [id number] Christensen M Alam apixaban 2.5 mg oral tablet (20 sources) Factor Xa Inhibitor Start: 01-25-2020 End: 03-19-2020 take 1 tablet by mouth twice daily Apixaban 2.5 MG tablet Discontinued 2.5 mg PO TWICE A DAY January 25, 2020 1:00am March 19, 2020 3:30pm Start: 07-31-2019 End: 01-07-2020 take 1 tablet by mouth twice daily in the morning Apixaban 2.5 MG tablet Discontinued 2.5 mg PO TWICE A DAY 30 0 July 31, 2019 12:00am January 07, 2020 9:14am start in morning 08/01/2019. 1 tab every 12 hrs. armodafinil 250 mg oral tablet (20 sources) Start: 07-28-2020 End: 11-05-2020 take 1 tablet by mouth once daily in the morning Armodafinil 250 mg tablet Discontinued 250 mg PO EVERY MORNING July 28, 2020 12:00am November 05, 2020 9:55am atorvastatin 40 mg oral tablet (20 sources) HMG-CoA Reductase Inhibitor Start: 11-10-2020 End: 12-08-2021 take 1 tablet by mouth at bedtime Atorvastatin 40 mg tablet Discontinued 40 mg PO AT BEDTIME 90 3 November 18, 2020 9:27am December 08, 2021 2:31pm azithromycin 250 mg oral tablet (5 sources) Macrolide Antimicrobial Start: 07-10-2015 End: 08-18-2015 take 2 tablets by mouth once daily, then take 1 tablet by mouth once daily, then take 2-5 tablets by mouth ZITHROMAX 1 GM PACK Two tablets by mouth day one then one tablet by mouth days 2-5 AZITHROMYCIN [id number] Fermin Modi Start: 07-10-2015 End: 08-18-2015 take 2 tablets by mouth once daily, then take 1 tablet by mouth AZITHROMYCIN 250 MG TABS Take 2 tablet PO the first day followed by 1 tablet PO through Day2-5 AZITHROMYCIN [id number] Anna Alexander PA-C Start: 06-11-2015 End: 06-16-2015 take 2 tablets by mouth once, then take 1 tablet by mouth once daily, then take 2-5 tablets by mouth AZITHROMYCIN 250 MG TABS 2 PO on day 1 then 1 PO daily on days 2-5 AZITHROMYCIN [id number] True Ibarra DO Beclomethasone Diprop Inhaler (20 sources) Corticosteroid Start: 06-07-2016 End: 09-16-2016 Beclomethasone Diprop Inhaler (Qvar 80 Mcg Inhaler) 1 PUFF inhaler Discontinued 2 PUFF INHALATION DAILY June 07, 2016 2:55pm September 16, 2016 10:49am Start: 06-07-2016 End: 09-16-2016 take 1 puff(s) by inhalation once daily Beclomethasone Diprop Inhaler (Qvar 80 Mcg Inhaler) 1 PUFF inhaler Discontinued 2 NMA INHALATION DAILY June 07, 2016 12:00am September 16, 2016 10:49am Start: 06-07-2016 End: 09-16-2016 Beclomethasone Diprop Inhale r (Qvar 80 Mcg Inhaler) 1 PUFF inhaler Discontinued 2 PUFF INHALATION DAILY June 06, 2016 11:00pm September 16, 2016 9:49am Start: 06-07-2016 End: 09-16-2016 Beclomethasone Diprop Inhale r (Qvar 80 Mcg Inhaler) 1 PUFF inhaler Discontinued 2 PUFF INHALATION DAILY June 07, 2016 12:00am September 16, 2016 10:49am QVAR 80 MCG/ACT AERS inhale 2 puffs daily BECLOMETHASONE DIPROPIONATE [id number] Fermin Modi BEE POLLEN TABS (2 sources) Start: 05-25-2013 End: 04-23-2014 BEE POLLEN TABS as directed BEE POLLEN TABS [id number] Reginaldo Baxter DO Start: 05-25-2013 BEE POLLEN TAB S as directed BEE POLLEN TABS [id number] Jennie Hayes busPIRone hydrochloride 10 mg oral tablet (20 sources) Start: 01-01-2014 End: 11-05-2020 take 7.5 mg by mouth once daily Buspirone 10 MG tablet Discontinued 7.5 mg PO DAILY January 01, 2014 12:00am November 05, 2020 9:54am Start: 01-01-2014 End: 11-05-2020 take 7.5 mg by mouth once daily Buspirone Discontinued 7.5 MG PO DAILY January 01, 2014 12:00am November 05, 2020 9:54am take 1 tablet by graciela once daily BUSPIRONE HCL 7.5 MG TABS One tablet by mouth daily BUSPIRONE HCL [id number] True Ibarra DO cefdinir 300 mg oral capsule (20 sources) Cephalosporin Antibacterial Start: 04-14-2022 End: 08-25-2022 Cefdinir 300 mg capsule Discontinued mg PO April 14, 2022 1:00am August 25, 2022 8:20am Start: 04-14-2022 End: 08-25-2022 Cefdinir Discontinued MG PO April 14, 2022 1:00am August 25, 2022 8:20am cephalexin 500 mg oral capsule (20 sources) Cephalosporin Antibacterial Start: 10-12-2019 End: 01-07-2020 take 4 tablets by mouth every hour Cephalexin (Keflex) 500 mg capsule Discontinued 2000 mg PO ONCE 4 October 12, 2019 12:00am January 07, 2020 9:14am take 4 tabs within 1 hour of dental procedure. Start: 07-31-2019 End: 01-07-2020 Cephalexin 500 MG capsule Di scontinued 1000 mg PO EVERY 8 HOURS 4 July 31, 2019 12:00am January 07, 2020 9:34am take 2 tabs at 9:30 pm and 2 tabs after 5 am when you wake up Start: 07-31-2019 End: 01-07-2020 Cephalexin Discontinued 1000 MG PO EVERY 8 HOURS July 31, 2019 12:00am January 07, 2020 9:34am take 2 tabs at 9:30 pm and 2 tabs after 5 am when you wake up Start: 06-07-2016 End: 03-23-2017 Cephalexin 500 MG capsule Di scontinued 2 g PO DIRECTED June 07, 2016 12:00am March 23, 2017 9:17am Start: 06-07-2016 End: 03-23-2017 Cephalexin Discontinued 2 GM PO DIRECTED June 07, 2016 12:00am March 23, 2017 9:17am Start: 04-02-2016 End: 03-23-2017 Cephalexin 500 MG capsule Di scontinued 2 g PO DIRECTED June 07, 2016 12:00am March 23, 2017 9:17am clopidogrel 75 mg oral tablet (20 sources) [id number] Platelet Inhibitor Start: 12-22-2022 End: 02-11-2023 take 1 tablet by mouth once daily Clopidogrel (Plavix) 75 mg tablet Discontinued 75 mg PO DAILY 90 December 22, 2022 10:05am February 11, 2023 10:13am Start: 11-18-2020 End: 12-22-2022 Clopidogrel (Plavix) 75 mg t ablet Discontinued 75 mg PO DAILY December 01, 2021 4:02pm December 22, 2022 10:06am Once you have finished your brilinta, next day take 4 plavix (300 mg), then plavix once a day PLAVIX 75 MG TAB S 1 tablet by mouth clopidogrel [id number] Elida Whitehead AT cyclobenzaprine hydrochloride 10 mg oral tablet (20 sources) Muscle Relaxant Start: 10-22-2019 End: 04-04-2020 take 1 tablet by mouth three times daily as needed for muscle spasms Cyclobenzaprine 10 mg tablet Discontinued 10 mg PO THREE TIMES A DAY as needed for muscle spasm October 22, 2019 12:00am April 04, 2020 3:58pm Other muscle spasm diazePAM 5 mg oral tablet (20 sources) Benzodiazepine Start: 03-24-2016 End: 09-16-2016 take 1 tablet by mouth three times daily as needed for muscle spasms Diazepam 5 MG tablet Discontinued 5 mg PO 3 TIMES DAILY NEEDED as needed for Spasms March 24, 2016 8:49am September 16, 2016 10:50am docusate sodium 100 mg oral capsule (20 sources) Start: 03-24-2016 End: 09-16-2016 take 1 capsule by mouth twice daily as needed for constipation Docusate Sodium (Colace) 100 MG capsule Discontinued 100 mg PO TWICE DAILY NEEDED as needed for Constipation March 24, 2016 1:00am September 16, 2016 10:50am ferrous sulfate (2 sources) take 1 tablet by mouth twice daily SM IRON 325 (65 Fe) MG TABS 1 tablet by mouth twice a day ferrous sulfate [id number] Elida PHILIP fexofenadine hydrochloride 180 mg oral tablet (5 sources) Histamine-1 Receptor Antagonist Start: 10-16-2019 take 1 tablet by mouth once daily ANYA ALLERGY 180 MG TABS 1 tablet by mouth once a day fexofenadine [id number] Elida Whitehead AT Start: 06-06-2015 take 1 tablet by graciela th once daily ANYA ALLERGY 180 MG TABS 1 po daily FEXOFENADINE HCL [id number] True Ibarra DO Start: 05-25-2013 take 1 tablet by graciela th twice daily ANYA ALLERGY TABS One tablet by mouth twice daily FEXOFENADINE HCL TABS [id number] Jennie Hayes Start: 05-25-2013 End: 04-23-2014 take 1 tablet by mouth twice daily ANYA ALLERGY TABS One tablet by mouth twice daily FEXOFENADINE HCL TABS [id number] Reginaldo Baxter DO 24 hr fexofenadine hydrochloride 180 mg / pseudoephedrine hydrochloride 240 mg extended release oral tablet (20 sources) alpha-Adrenergic Agonist, Histamine-1 Receptor Antagonist Start: 01-01-2014 End: 11-05-2020 take 1 tablet by mouth every twenty-four hours Fexofenadine-Pseudoephedrine 1 EACH tablet extended release 24 hr Discontinued 1 NMA PO DAILY January 01, 2014 12:00am November 05, 2020 9:55am congestion Start: 01-01-2014 End: 11-05-2020 Fexofenadine-Pseudoephedrine Discontinued 1 EACH PO DAILY January 01, 2014 12:00am November 05, 2020 9:55am ibuprofen 800 mg oral tablet (1 source) Nonsteroidal Anti-inflammatory Drug take 1 tablet by mouth once daily IBUPROFEN 800 MG TABS One tablet by mouth daily IBUPROFEN [id number] Reginaldo Baxter DO KETOROLAC TROMETHAMINE TABS (2 sources) Nonsteroidal Anti-inflammatory Drug, Cyclooxygenase Inhibitor Start: 05-26-19 End: 04-23-19 KETOROLAC TROMETHAMINE TABS as directed KETOROLAC TROMETHAMINE TABS [id number] Reginaldo Baxter DO Start: 05-25-2013 KETOROLAC TROM ETHAMINE TABS as directed KETOROLAC TROMETHAMINE TABS [id number] Jennie Hayes levoFLOXacin 500 mg oral tablet (2 sources) Quinolone Antimicrobial Start: 08-29-2014 End: 11-14-2014 LEVAQUIN 500 MG TABS Take 1 tablet PO Qdaily for 14 days LEVOFLOXACIN [id number] Padmini Daniels LPN lisinopril 5 mg oral tablet (20 sources) Angiotensin Converting Enzyme Inhibitor Start: 05-27-2021 End: 05-22-2024 take 1 tablet by mouth once daily Lisinopril 5 mg tablet Discontinued 5 mg PO DAILY 90 May 16, 2023 3:12pm May 22, 2024 8:52am Start: 11-10-2020 End: 05-27-2021 take 1 tablet by mouth once daily Lisinopril 2.5 mg tablet Discontinued 2.5 mg PO DAILY 90 3 November 18, 2020 9:28am May 27, 2021 8:48am meloxicam 15 mg oral tablet (20 sources) Nonsteroidal Anti-inflammatory Drug Start: 04-23-2020 End: 11-05-2020 take 1 tablet by mouth once daily Meloxicam (Mobic) 15 mg tablet Discontinued 15 mg PO DAILY 30 2 April 23, 2020 1:00am November 05, 2020 9:54am Do not take in conjunction with other NSAIDs. Tylenol is okay Start: 03-19-2020 End: 04-04-2020 take 1 tablet by mouth once daily Meloxicam (Mobic) 15 mg tablet Discontinued 15 mg PO DAILY 30 0 March 19, 2020 1:00am April 04, 2020 3:58pm Do not take in conjunction with other NSAIDs. methylPREDNISolone 4 mg oral tablet (20 sources) Corticosteroid Start: 04-11-2024 End: 04-26-2024 take 1 tablet by mouth once Methylprednisolone (Medrol (Андрей)) 4 mg tablets,dose pack Discontinued 0 PO per package directions April 11, 2024 1:00am April 26, 2024 4:57pm as directed Start: 05-30-2023 End: 11-21-2023 take 1 tablet by mouth once Methylprednisolone (Medrol (Андрей)) 4 mg tablets,dose pack Discontinued 0 PO per package directions June 08, 2023 12:00am November 21, 2023 8:20am take as directed Start: 10-08-2022 End: 01-05-2023 take 1 tablet by mouth once Methylprednisolone (Medrol (Андрей)) 4 mg tablets,dose pack Discontinued 0 PO per package directions October 25, 2022 1:04pm January 05, 2023 9:05am take as directed Start: 01-21-2021 End: 01-21-2021 Depo-Medrol (methylprednisol one acetate) 40 mg/mL suspension for injection Discontinued 40 MG INTRAARTIC ONCE January 21, 2021 9:50am January 21, 2021 12:22pm Start: 06-16-2020 End: 06-16-2020 Depo-Medrol (methylprednisol one acetate) 40 mg/mL suspension for injection Discontinued 40 MG INTRAARTIC ONCE June 16, 2020 10:10am June 16, 2020 11:04am Start: 11-21-2019 End: 11-21-2019 Depo-Medrol (methylprednisol one acetate) 40 mg/mL suspension for injection Discontinued 40 MG INTRAARTIC ONCE November 21, 2019 9:10am November 21, 2019 10:08am Start: 11-12-2019 End: 01-07-2020 take 1 tablet by mouth once Methylprednisolone (Medrol (Андрей)) 4 mg tablets,dose pack Discontinued 0 PO per package directions 21 0 November 12, 2019 12:00am January 07, 2020 9:14am take as directed Start: 08-19-2015 End: 08-27-2015 MEDROL 4 MG TBPK take as dir ected on pack METHYLPREDNISOLONE [id number] True Ibarra DO Start: 08-19-2015 MEDROL 4 MG TB PK take as directed on pack METHYLPREDNISOLONE [id number] Anna Alexander PA-C 24 hr metoprolol succinate 25 mg extended release oral tablet (20 sources) beta-Adrenergic Cornelio Start: 11-10-2020 End: 02-28-2024 take 1 tablet by mouth once daily Metoprolol Succinate 25 mg tablet extended release 24 hr Discontinued 25 mg PO DAILY 90 3 January 05, 2022 4:55pm March 24, 2023 10:11am take 1 capsule by mouth once tori ly metoprolol succinate 25 mg capsule,sprinkle,ER 24hr 1 capsule by mouth once a day metoprolol succinate Elida Whitehead AT morphine sulfate 15 mg extended release oral tablet (20 sources) Opioid Agonist Start: 03-24-2016 End: 09-16-2016 take 1 tablet by mouth every twelve hours Morphine 15 MG tablet Discontinued 15 mg PO Q12H 14 0 March 24, 2016 1:00am September 16, 2016 10:50am MULTIPLE VITAMIN (1 source) take 1 tablet by mouth once daily MULTIVITAMINS CAPS One tablet by mouth daily MULTIPLE VITAMIN [id number] Reginaldo Baxter DO Multivitamin preparation (2 sources) Start: 10-16-2019 MULTI-VITAMINS TABS 1 capsule once a day multivitamin [id number] Elidasunny Patelearlene PHILIP nitroglycerin 0.4 mg sublingual tablet (20 sources) Nitrate Vasodilator Start: 12-08-2021 End: 07-19-2024 Nitroglycerin (Nitrostat) 0.4 mg tablet, sublingual Discontinued 0.4 mg SL every 5 to 15 minutes as needed for chest pain 05 06December 08, 2021 12:00am July 19, 2024 3:34pm do not exceed 3 doses per episode Start: 12-08-2021 Nitroglycerin (Nitrostat) 0.4 mg tablet, sublingual Active 0.4 MG SL every 5 to 15 minutes December 08, 2021 12:00am do not exceed 3 doses per episode oxyCODONE hydrochloride 5 mg oral capsule (20 sources) Opioid Agonist Start: 02-29-2020 End: 03-19-2020 take 1 capsule by mouth every four hours as needed for pain Oxycodone 5 mg capsule Discontinued 5 mg PO Q4H as needed for pain 42 0 February 29, 2020 March 19, 2020 3:31pm Other acute postprocedural pain Start: 02-08-2020 End: 03-19-2020 take 5-10 mg by mouth every six hours as needed for pain Oxycodone 5 mg tablet Discontinued 5 - 10 mg PO EVERY 6 HOURS as needed for Pain Score 6-10/10 56 0 February 20, 2020 March 19, 2020 3:31pm Other acute postprocedural pain Start: 01-25-2020 End: 02-08-2020 take 5-10 mg by mouth every four hours as needed for pain Oxycodone 5 mg tablet Discontinued 5 - 10 mg PO EVERY 4 HOURS NEEDED as needed for Pain Score 4-10 60 0 February 01, 2020 February 08, 2020 2:04pm Other acute postprocedural pain Start: 08-13-2019 End: 01-07-2020 take 1-2 tablets by mouth every six hours as needed for pain Oxycodone 5 mg capsule Discontinued 5 mg PO EVERY 6 HOURS as needed for pain 30 0 August 24, 2019 January 07, 2020 9:14am Other acute postprocedural pain 1-2 tabs every 6 hrs as needed for pain. Do not take with other narcotic Start: 07-31-2019 End: 01-07-2020 take 1-2 tablets by mouth every four hours as needed for pain Oxycodone 5 MG tablet Discontinued 5 mg PO EVERY 4 HOURS NEEDED as needed for Pain Score 4-10/10 60 0 July 31, 2019 January 07, 2020 9:14am Other acute postprocedural pain 1-2 tabs by mouth every 4 hrs as needed for pain Start: 03-24-2016 End: 09-16-2016 take 4 tablets by mouth every four hours as needed for pain Oxycodone 5 MG tablet Discontinued 20 mg PO EVERY 4 HOURS NEEDED as needed for Pain 60 March 24, 2016 1:00am September 16, 2016 10:52am Start: 03-24-2016 End: 09-16-2016 take 20 mg by mouth every four hours as needed Oxycodone Discontinued 20 MG PO EVERY 4 HOURS NEEDED 60 March 24, 2016 1:00am September 16, 2016 10:52am pantoprazole 40 mg delayed release oral tablet (20 sources) Proton Pump Inhibitor Start: 06-07-2016 End: 09-16-2016 take 1 tablet by mouth once daily Pantoprazole 40 MG tablet Discontinued 40 mg PO DAILY June 07, 2016 12:00am September 16, 2016 10:50am polyethylene glycol 3350 [id number] mg / potassium chloride 2970 mg / sodium bicarbonate 6740 mg / sodium chloride 5860 mg / sodium sulfate 83050 mg powder for oral solution (20 sources) Osmotic Laxative Start: 10-16-2018 End: 07-13-2019 take 4000 mL by mouth once Peg 3350-Electrolytes 236-22.74-6.74 -5.86 gram recon soln Discontinued 4000 mL PO ONCE 4000 0 October 16, 2018 12:00am July 13, 2019 8:48am until fecal effluent is clear; do not exceed a total volume of 4000 mL Start: 10-16-2018 End: 07-13-2019 take 4000 mL by mouth once Peg 3350-Electrolytes Disco ntinued 4000 ML PO ONCE 4000 October 16, 2018 12:00am July 13, 2019 8:48am until fecal effluent is clear; do not exceed a total volume of 4000 mL polysaccharide iron complex 150 mg oral capsule (20 sources) Start: 03-24-2023 End: 03-21-2024 take 1 capsule by mouth once daily Polysaccharide Iron Complex (Ferrex 150) 150 mg iron capsule Discontinued 0 .ROUTE .COMPLEX March 24, 2023 10:04am March 21, 2024 9:13am Take 1 capsule by mouth daily Start: 01-05-2022 End: 03-24-2023 take 1 capsule by mouth twice daily Polysaccharide Iron Complex (Ferrex 150) 150 mg iron capsule Discontinued 0 .ROUTE .COMPLEX 180 0 January 05, 2022 8:18am March 24, 2023 10:06am Take 1 capsule by mouth twice daily Start: 12-08-2021 End: 01-05-2022 Polysaccharide Iron Complex (Ferrex 150) 150 mg iron capsule Discontinued 150 mg PO DAILY December 08, 2021 2:33pm January 05, 2022 8:18am Start: 07-28-2020 End: 12-08-2021 take 1 capsule by mouth twice daily Polysaccharide Iron Complex (Ferrex 150) 150 mg iron capsule Discontinued 0 .ROUTE .COMPLEX 180 0 September 08, 2021 7:57am December 08, 2021 2:37pm Take 1 capsule by mouth twice daily predniSONE 10 mg oral tablet (12 sources) Start: 04-23-2024 End: 07-19-2024 Prednisone 10 mg tablet Discontinued 10 mg PO As Directed 30 0 April 23, 2024 1:00am July 19, 2024 3:32pm 4 tabs for 3 days. 3 tabs for 3 days, 2 tabs for 3 days, 1 tab for 3 days Start: 02-21-2023 take 1 tablet by mouth once da alka as needed promethazine hydrochloride 25 mg oral tablet (20 sources) Phenothiazine Start: 03-24-2016 End: 09-16-2016 take 1 tablet by mouth every four hours as needed for nausea Promethazine 25 MG tablet Discontinued 25 mg PO EVERY 4 HOURS NEEDED as needed for Nausea 10 0 March 24, 2016 1:00am September 16, 2016 11:02am rosuvastatin calcium 40 mg oral tablet (20 sources) HMG-CoA Reductase Inhibitor Start: 11-09-2021 End: 03-24-2023 Rosuvastatin 40 mg tablet Discontinued 40 mg PO December 08, 2021 2:32pm March 24, 2023 10:06am Start: 11-09-2021 End: 12-08-2021 Rosuvastatin Discontinued MG PO November 09, 2021 12:00am December 08, 2021 2:37pm tamsulosin hydrochloride 0.4 mg oral capsule (20 sources) alpha-Adrenergic Cornelio Start: 02-18-2021 End: 12-08-2021 take 1 capsule by mouth at bedtime Tamsulosin 0.4 mg capsule Discontinued 0.4 mg PO AT BEDTIME February 18, 2021 1:00am December 08, 2021 2:35pm TETRACYCLINE HCL CAPS (4 sources) Tetracycline-class Antimicrobial Start: 05-25-2013 End: 04-23-2014 TETRACYCLINE HCL CAPS as directed TETRACYCLINE HCL CAPS [id number] Reginaldo Baxter DO Start: 05-25-2013 TETRACYCLINE H CL CAPS as directed TETRACYCLINE HCL CAPS [id number] Jennie Hayes ticagrelor 90 mg oral tablet (20 sources) Start: 11-10-2020 End: 01-21-2021 take 1 tablet by mouth twice daily Ticagrelor (Brilinta) 90 mg tablet Discontinued 90 mg PO TWICE A DAY 60 11 November 18, 2020 9:28am January 21, 2021 10:08am triamcinolone acetonide 40 mg/ml injectable suspension (3 sources) Corticosteroid Start: 06-01-2021 End: 06-01-2021 Kenalog (triamcinolone acetonide) 40 mg/mL suspension for injection Discontinued 60 MG INTRAARTIC ONCE 1.5 June 01, 2021 11:11am June 01, 2021 11:46am Start: 04-20-2018 End: 04-20-2018 Kenalog (triamcinolone aceto nide) 40 mg/mL suspension for injection Discontinued 160 MG INTRAARTIC ONCE 4 April 20, 2018 9:25am April 20, 2018 10:45am Start: 07-08-2017 End: 07-08-2017 inject 4 mg by intramuscular injection once Kenalog (triamcinolone acetonide) 10 mg/mL suspension for injection Discontinued 4 MG IM ONCE 0.4 July 08, 2017 7:57am July 08, 2017 8:50am Problems Active Problems Problem Classification Problem Date Documented Date Episodic/Chronic Acute myocardial infarction (20 sources) Acute myocardial infarction of anterior wall; Translations: [ST elevation (STEMI) myocardial infarction involving other coronary artery of anterior wall] Onset: 11-09-2020 11-10-2020 Chronic Anxiety disorders (1 source) Anxiety disorder; Translations: [Anxiety disorder, unspecified] Onset: 08-27-2015 08-27-2015 Chronic Cardiac dysrhythmias (20 sources) Bradycardia; Translations: [Bradycardia, unspecified] 11-11-2020 Episodic Coronary atherosclerosis and other heart disease (20 sources) Coronary atherosclerosis; Translations: [Atherosclerotic heart disease of [place] coronary artery without angina pectoris] Onset: 03-22-2024 11-18-2020 Chronic Deficiency and other anemia (14 sources) Anemia; Translations: [Anemia, unspecified] 11-08-2022 Episodic Diseases of white blood cells (20 sources) Neutropenia; Translations: [Leukopenia] Onset: 04-23-2014 06-26-2014 Chronic Comment on above: Due to Methotrexate. Esophageal disorders (1 source) Gastroesophageal reflux disease; Translations: [Gastro-esophageal reflux disease without esophagitis] Onset: 06-06-2015 06-08-2015 Chronic Essential hypertension (20 sources) Hypertensive disorder; Translations: [Essential hypertension] Onset: 07-12-2016 07-18-2016 Chronic Joint disorders and dislocations; trauma-related (20 sources) Tear of medial meniscus of knee; Translations: [Other tear of medial meniscus, current injury, left knee, initial encounter] Episodic Neoplasms of unspecified nature or uncertain behavior (20 sources) Gammopathy; Translations: [Monoclonal gammopathy] Chronic Neoplasms of unspecified nature or uncertain behavior (2 sources) 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; Translations: [Neoplasm of uncertain behavior of connective and other soft tissue] Onset: 04-10-2021 04-10-2021 Episodic Nonspecific chest pain (20 sources) Chest pain; Translations: [Chest pain, unspecified] Episodic Osteoarthritis (20 sources) Degenerative joint disease involving multiple joints; Translations: [Osteoarthritis of glenohumeral joint] Onset: 12-27-2014 06-08-2015 Chronic Other connective tissue disease (20 sources) History of total knee arthroplasty; Translations: [Presence of right artificial knee joint] Onset: 03-25-2020 03-26-2020 Chronic Other connective tissue disease (1 source) History of right total knee replacement; Translations: [Presence of right artificial knee joint] 05-25-2021 Chronic Other connective tissue disease (1 source) Presence of right artificial knee joint; Translations: [Presence of right artificial knee joint] Onset: 03-22-2024 Chronic Other connective tissue disease (20 sources) History of cervical spine fusion; Translations: [Arthrodesis status] 05-25-2021 Episodic Other connective tissue disease (20 sources) Inflammation of rotator cuff tendon; Translations: [Other shoulder lesions, unspecified shoulder] 06-01-2021 Episodic Other connective tissue disease (1 source) Other shoulder lesions, unspecified shoulder; Translations: [Disorders of bursae and tendons in shoulder region, unspecified] Episodic Other connective tissue disease (20 sources) Tibialis posterior tendinitis ; Translations: [Posterior tibial tendinitis, unspecified leg] 08-20-2021 Episodic Other connective tissue disease (5 sources) Posterior tibial tendinitis, unspecified leg; Translations: [Tibialis tendinitis] Episodic Other connective tissue disease (20 sources) Supraspinatus tear; Translations: [Unspecified rotator cuff tear or rupture of unspecified shoulder, not specified as traumatic] 02-08-2022 Episodic Other connective tissue disease (9 sources) Bursitis of shoulder; Translations: [Bursitis of right shoulder] 02-08-2022 Episodic Other connective tissue disease (5 sources) Bursitis of right shoulder; Translations: [Disorders of bursae and tendons in shoulder region, unspecified] 02-08-2022 Episodic Other connective tissue disease (5 sources) Unspecified rotator cuff tear or rupture of unspecified shoulder, not specified as traumatic; Translations: [Supraspinatus (muscle) (tendon) sprain] 02-08-2022 Episodic Other connective tissue disease (12 sources) Bursitis of right shoulder; Translations: [Bursitis of right shoulder] 02-08-2022 Episodic Other connective tissue disease (11 sources) Tendinitis of right rotator cuff; Translations: [Other shoulder lesions, right shoulder] 01-05-2023 Episodic Other connective tissue disease (7 sources) Other shoulder lesions, right shoulder; Translations: [Disorders of bursae and tendons in shoulder region, unspecified] 01-05-2023 Episodic Other connective tissue disease (7 sources) Tear of right rotator cuff; Translations: [Unspecified rotator cuff tear or rupture of right shoulder, not specified as traumatic] 03-03-2023 Episodic Other connective tissue disease (4 sources) Unspecified rotator cuff tear or rupture of right shoulder, not specified as traumatic; Translations: [Rotator cuff (capsule) sprain] 03-02-2023 Episodic Other connective tissue disease (8 sources) Iliotibial band friction syndrome; Translations: [Iliotibial band syndrome, unspecified leg] 03-21-2024 Episodic Other connective tissue disease (3 sources) Tendonitis of right patellar tendon; Translations: [Patellar tendinitis, right knee] 07-13-2024 Episodic Other connective tissue disease (3 sources) Iliotibial band friction syndrome of right knee; Translations: [Iliotibial band syndrome, right leg] 07-13-2024 Episodic Other endocrine disorders (2 sources) Hypogonadism; Translations: [Disorder of adrenal gland] Onset: 06-06-2015 06-08-2015 Chronic Other endocrine disorders (1 source) Testicular hypofunction; Translations: [Testicular hypofunction] Onset: 01-23-2025 Chronic Other lower respiratory disease (9 sources) Dyspnea on exertion; Translations: [Other forms of dyspnea] 01-12-2023 Episodic Other nervous system disorders (2 sources) Spinal cord disease; Translations: [Disease of spinal cord, unspecified] Onset: 01-23-2015 01-23-2015 Chronic Other nervous system disorders (1 source) Other chronic pain; Translations: [Other chronic pain] Onset: 03-22-2024 Chronic Other nervous system disorders (4 sources) Numbness of lower limb ; Translations: [Anesthesia of skin] 09-07-2023 Episodic Other non-traumatic joint disorders (20 sources) Derangement of right shoulder joint; Translations: [Other specific joint derangements of right shoulder, not elsewhere classified] 01-18-2022 Chronic Other non-traumatic joint disorders (6 sources) Other specific joint derangements of right shoulder, not elsewhere classified; Translations: [Other specified disorders of joint, shoulder region] Chronic Other non-traumatic joint disorders (20 sources) Effusion of right knee joint; Translations: [Effusion, right knee] 07-15-2021 Episodic Other non-traumatic joint disorders (20 sources) Pain in left knee; Translations: [Mechanical pain of left knee] 11-10-2020 Episodic Other non-traumatic joint disorders (14 sources) Shoulder pain; Translations: [Pain in right shoulder] 05-25-2021 Episodic Other non-traumatic joint disorders (17 sources) Pain in right shoulder; Translations: [Right shoulder pain] 05-25-2021 Episodic Other nutritional; endocrine; and metabolic disorders (1 source) Overweight; Translations: [Overweight] Onset: 07-12-2016 07-12-2016 Chronic Paralysis (1 source) Monoparesis - arm; Translations: [Weakness] Onset: 10-02-2014 10-07-2014 Chronic Rheumatoid arthritis and related disease (5 sources) Rheumatoid arthritis; Translations: [Rheumatoid arthritis, unspecified] Onset: 12-12-2024 09-07-2023 Chronic Spondylosis; intervertebral disc disorders; other back problems (2 sources) Degeneration of lumbar intervertebral disc; Translations: [Cervical radiculopathy] Onset: 10-02-2014 06-08-2015 Chronic Spondylosis; intervertebral disc disorders; other back problems (20 sources) Spinal stenosis in cervical region; Translations: [Spinal stenosis, cervical region] Onset: 01-23-2015 03-26-2021 Episodic Sprains and strains (20 sources) Sprain of unspecified rotator cuff capsule, initial encounter; Translations: [Strain of hamstring muscle] Onset: 05-25-2013 05-28-2013 Episodic Superficial injury; contusion (20 sources) Contusion of knee; Translations: [Contusion of left knee, initial encounter] 04-14-2022 Episodic Unclassified (1 source) Postoperative physical examination; Translations: [Encounter for other specified surgical aftercare] Onset: 04-05-2016 04-05-2016 Unclassified (1 source) Shoulder Pain / [id number]() Onset: 05-02-2017 Unclassified (1 source) Pain in left shoulder / M25.512(ICD-10) Onset: 05-02-2017 Unclassified (2 sources) Iliotibial band syndrome; Translations: [M76.30 - Iliotibial band syndrome, unspecified leg] Past or Other Problems Problem Classification Problem Date Documented Da te Episodic/Chronic Coagulation and hemorrhagic disorders (19 sources) Spontaneous bruising; Translations: [Spontaneous ecchymoses] Onset: 04-04-2024 02-21-2023 Episodic Coronary atherosclerosis and other heart disease (19 sources) Presence of coronary angioplasty implant and graft; Translations: [Percutaneous transluminal coronary angioplasty status] Onset: 11-09-2020 Episodic Deficiency and other anemia (8 sources) Anemia, unspecified; Translations: [Anemia, unspecified] Onset: 08-15-2024 11-08-2022 Episodic Headache, including migraine (3 sources) Headache; Translations: [Headache] Onset: 08-18-2015 Resolved: 09-01-2015 08-27-2015 Episodic Nutritional deficiencies (20 sources) Iron deficiency; Translations: [Iron deficiency] Onset: 08-15-2024 11-03-2020 Episodic Comment on above: on oral iron. Oneyda grimaldo. Other aftercare (1 source) Follow-up orthopedic assessment; [...] [Arthrodesis status] Onset: 01-23-2015 01-23-2015 Episodic Other connective tissue disease (2 sources) Iliotibial band syndrome, right leg; Translations: [Iliotibial band syndrome, right leg] Onset: 07-19-2024 Episodic Other connective tissue disease (1 source) Iliotibial band syndrome, unspecified leg; Translations: [Iliotibial band syndrome, unspecified leg] Onset: 06-08-2024 Episodic Other non-traumatic joint disorders (5 sources) Pain in unspecified shoulder; Translations: [Shoulder joint pain] Onset: 05-25-2013 05-28-2013 Episodic Other non-traumatic joint disorders (2 sources) Swelling of knee joint; Translations: [Effusion, right knee] Onset: 03-25-2020 03-26-2020 Episodic Other non-traumatic joint disorders (11 sources) Effusion, right knee; Translations: [Effusion of joint, lower leg] Onset: 04-11-2024 Episodic Other non-traumatic joint disorders (2 sources) Pain in right knee; Translations: [Right knee pain] Onset: 03-22-2024 11-21-2023 Episodic Other screening for suspected conditions (not mental disorders or infectious disease) (20 sources) Serum creatinine raised; Translations: [Other specified abnormal findings of blood chemistry] Onset: 05-10-2024 11-08-2022 Episodic Other upper respiratory infections (1 source) Acute sinusitis; Translations: [Acute sinusitis, unspecified] Onset: 08-29-2014 08-29-2014 Episodic Unclassified (3 sources) Family history of malignant neoplasm of lung; Translations: [Body mass index (BMI) 26.0-26.9, adult] Onset: 07-12-2016 04-23-2014 Episodic Unclassified (1 source) Pain in left shoulder; Translations: [Pain in left shoulder] Onset: 05-02-2017 Unclassified (2 sources) Problem Results Test Name Value Interpretation Reference Range Facility Testosterone, Total / Freeon 01-17-2025 TESTOSTER,FREE 3.44 ng/dL Abnormal 5.00-21.00 [facility] Comment on above: Order Comment: N Performed By: #### L 506.1001, L501.9940, L100.0500, L500.4100, L501.9520, L3100.5310, L500.4050 ####[facility] [address] [place], [place], [id number] TESTOSTER,TOTAL 172 ng/dL Low 264-916 [facility] Comment on above: Order Comment: N Result Comment: Adul t male reference interval is based on a population of healthy nonobese males (BMI <30) between 19 and 39 years old. leighton Moreland.al. JCEM 2017,102;0472-8787. PMID: [id number]. Performed By: #### L 506.1001, L501.9940, L100.0500, L500.4100, L501.9520, L3100.5310, L500.4050 ####[facility] [address] [place], [place], [id number] TESTOSTERONE,%F 2.00 Normal 1.50-4.20 [facility] Comment on above: Order Comment: N Result Comment: Perf ormed at: [address] [id number] Conveyor System Dispatcher: Jose Angel Marks PhD, Phone: [phone] Performed at: [facility] [address] [place], [place] [id number] Conveyor System Dispatcher: Susan Rojas MD, Phone: [phone] Performed By: #### L 506.1001, L501.9940, L100.0500, L500.4100, L501.9520, L3100.5310, L500.4050 ####[facility] [address] [place], [address] CBC-Complete Blood Cnt No Di ffon 01-10-2025 Erythrocyte distribution width (RBC) [Ratio] 14.7 % High 11.6-14.6 [facility] Comment on above: Performed By: #### L 506.1001, L501.9940, L100.0500, L500.4100, L501.9520, L3100.5310, L500.4050 ####[facility] [address] [place], [address] Hematocrit (Bld) [Volume fraction] 36.6 % Low 40-54 [facility] Comment on above: Performed By: #### L 506.1001, L501.9940, L100.0500, L500.4100, L501.9520, L3100.5310, L500.4050 ####[facility] [address] [place], [address] Hemoglobin (Bld) [Mass/Vol] 12.7 g/dL Low 13.0-16.5 [facility] Comment on above: Performed By: #### L 506.1001, L501.9940, L100.0500, L500.4100, L501.9520, L3100.5310, L500.4050 ####[facility] [address] [place], [address] MCH (RBC) [Entitic mass] 31.0 pg Normal 27.0-32.0 [facility] Comment on above: Performed By: #### L 506.1001, L501.9940, L100.0500, L500.4100, L501.9520, L3100.5310, L500.4050 ####[facility] [address] [place], [address] MCHC (RBC) [Mass/Vol] 34.7 g/dL Normal 32-36 [facility] Comment on above: Performed By: #### L 506.1001, L501.9940, L100.0500, L500.4100, L501.9520, L3100.5310, L500.4050 ####[facility] [address] [place], [address] MCV (RBC) [Entitic vol] 89.3 fL Normal 80-94 [facility] Comment on above: Performed By: #### L 506.1001, L501.9940, L100.0500, L500.4100, L501.9520, L3100.5310, L500.4050 ####[facility] [address] [place], [address] Platelet mean volume (Bld) [Entitic vol] 9.9 fL Normal 6.2-12.0 [facility] Comment on above: Performed By: #### L 506.1001, L501.9940, L100.0500, L500.4100, L501.9520, L3100.5310, L500.4050 ####[facility] [address] [place], [address] Platelets (Bld) [#/Vol] 223 10*3/uL Normal 150-450 [facility] Comment on above: Performed By: #### L 506.1001, L501.9940, L100.0500, L500.4100, L501.9520, L3100.5310, L500.4050 ####[facility] [address] [place], [address] RBC (Bld) [#/Vol] 4.10 10*6/uL Low 4.6-6.2 [facility] Comment on above: Performed By: #### L 506.1001, L501.9940, L100.0500, L500.4100, L501.9520, L3100.5310, L500.4050 ####[facility] [address] [place], [address] RDW SD 47.3 fl High 35.1-43.9 [facility] Comment on above: Performed By: #### L 506.1001, L501.9940, L100.0500, L500.4100, L501.9520, L3100.5310, L500.4050 ####[facility] [address] [place], [address] WBC (Bld) [#/Vol] 4.5 10*3/uL Normal 4.4-11.0 [facility] Comment on above: Performed By: #### L 506.1001, L501.9940, L100.0500, L500.4100, L501.9520, L3100.5310, L500.4050 ####[facility] [address] [place], [address] Comprehensive Metabolic Prof ilon 01-10-2025 Albumin [Mass/Vol] 4.3 g/dL Normal 3.4-4.8 [facility] Comment on above: Performed By: #### L 506.1001, L501.9940, L100.0500, L500.4100, L501.9520, L3100.5310, L500.4050 ####[facility] [address] [place], [address] Albumin/Globulin [Mass ratio] 1.7 {ratio} Normal 0.9-2.4 [facility] Comment on above: Performed By: #### L 506.1001, L501.9940, L100.0500, L500.4100, L501.9520, L3100.5310, L500.4050 ####[facility] [address] [place], [address] ALK PHOS 58 U/L Normal 40-129 [facility] Comment on above: Performed By: #### L 506.1001, L501.9940, L100.0500, L500.4100, L501.9520, L3100.5310, L500.4050 ####[facility] [address] [place], [address] ALT [Catalytic activity/Vol] 29 U/L Normal <=46 [facility] Comment on above: Performed By: #### L 506.1001, L501.9940, L100.0500, L500.4100, L501.9520, L3100.5310, L500.4050 ####[facility] [address] [place], [address] AST [Catalytic activity/Vol] 37 U/L Normal <=37 [facility] Comment on above: Performed By: #### L 506.1001, L501.9940, L100.0500, L500.4100, L501.9520, L3100.5310, L500.4050 ####[facility] [address] [place], [place], [phone] Bilirubin [Mass/Vol] 0.37 mg/dL Normal 0.00-1.[address] [facility] Comment on above: Performed By: #### L 506.1001, L501.9940, L100.0500, L500.4100, L501.9520, L3100.5310, L500.4050 ####[facility] [address] [place], [address] BUN/CRE 12.1 RATIO Normal 10-20 [facility] Comment on above: Performed By: #### L 506.1001, L501.9940, L100.0500, L500.4100, L501.9520, L3100.5310, L500.4050 ####[facility] [address] [place], [address] Calcium [Mass/Vol] 9.5 mg/dL Normal 7.6-11.0 [facility] Comment on above: Performed By: #### L 506.1001, L501.9940, L100.0500, L500.4100, L501.9520, L3100.5310, L500.4050 ####[facility] [address] [place], [address] Chloride [Moles/Vol] 103 mmol/L Normal 98-[address] [facility] Comment on above: Performed By: #### L 506.1001, L501.9940, L100.0500, L500.4100, L501.9520, L3100.5310, L500.4050 ####[facility] [address] [place], [address] CO2 [Moles/Vol] 27.4 mmol/L Normal 21.0-32.0 [facility] Comment on above: Performed By: #### L 506.1001, L501.9940, L100.0500, L500.4100, L501.9520, L3100.5310, L500.4050 ####[facility] [address] [place], [address] Creatinine [Mass/Vol] 1.12 mg/dL Normal 0.70-1.20 [facility] Comment on above: Performed By: #### L 506.1001, L501.9940, L100.0500, L500.4100, L501.9520, L3100.5310, L500.4050 ####[facility] [address] [place], [address] GAP 10 Normal 5-15 [facility] Comment on above: Performed By: #### L 506.1001, L501.9940, L100.0500, L500.4100, L501.9520, L3100.5310, L500.4050 ####[facility] [address] [place], [address] GFR/1.73 sq M.predicted among non-blacks MDRD (S/P/Bld) [Vol rate/Area] 71 mL/min/{1.73_m2} Normal >60 [facility] Comment on above: Result Comment: mL/m in/1.73m2 CKD-EPI Creatinine Equation (2020) Performed By: #### L 506.1001, L501.9940, L100.0500, L500.4100, L501.9520, L3100.5310, L500.4050 ####[facility] [address] [place], [address] Globulin (S) [Mass/Vol] 2.5 g/dL Normal 2.2-4.2 [facility] Comment on above: Performed By: #### L 506.1001, L501.9940, L100.0500, L500.4100, L501.9520, L3100.5310, L500.4050 ####[facility] [address] [place], [address] Glucose [Mass/Vol] 94 mg/dL Normal 70-99 [facility] Comment on above: Performed By: #### L 506.1001, L501.9940, L100.0500, L500.4100, L501.9520, L3100.5310, L500.4050 ####[facility] [address] [place], [address] Potassium [Moles/Vol] 4.1 mmol/L Normal 3.3-5.1 [facility] Comment on above: Performed By: #### L 506.1001, L501.9940, L100.0500, L500.4100, L501.9520, L3100.5310, L500.4050 ####[facility] [address] [place], [address] Sodium [Moles/Vol] 140 mmol/L Normal 133-145 [facility] Comment on above: Performed By: #### L 506.1001, L501.9940, L100.0500, L500.4100, L501.9520, L3100.5310, L500.4050 ####[facility] [address] [place], [address] T PROT 6.9 g/dL Normal 5.9-8.4 [facility] Comment on above: Performed By: #### L 506.1001, L501.9940, L100.0500, L500.4100, L501.9520, L3100.5310, L500.4050 ####[facility] [address] [place], [address] Urea nitrogen [Mass/Vol] 14 mg/dL Normal 4-19 [facility] Comment on above: Performed By: #### L 506.1001, L501.9940, L100.0500, L500.4100, L501.9520, L3100.5310, L500.4050 ####[facility] [address] [place], [address] Lipid Profileon 01-10-2025 CHOL:HDL 1.91 Normal [facility] Comment on above: Performed By: #### L 506.1001, L501.9940, L100.0500, L500.4100, L501.9520, L3100.5310, L500.4050 ####[facility] [address] [place], [address] Cholesterol [Mass/Vol] 150 mg/dL Normal <=200 [facility] Comment on above: Result Comment: Chol esterol level, Desirable <200 mg/dL Borderline high cholesterol 200-239 mg/dL High cholesterol >=240 mg/dL Recommendations of the NCEP Adult Treatment Panel for the following risk-cutoff thresholds for the [place] population. Performed By: #### L 506.1001, L501.9940, L100.0500, L500.4100, L501.9520, L3100.5310, L500.4050 ####[facility] [address] [place], [address] Cholesterol in HDL [Mass/Vol] 79 mg/dL Normal [facility] Comment on above: Result Comment: Jennifer onal Cholesterol Education Program (NCEP) guidelines: <40 mg/dL: Low HDL-cholesterol (major risk factor for CHD) >= 60 mg/dL: High HDL-cholesterol (negative risk factor for CHD) HDL-cholesterol is affected by a number of factors, e.g. smoking, exercise, hormones, sex and age. Performed By: #### L 506.1001, L501.9940, L100.0500, L500.4100, L501.9520, L3100.5310, L500.4050 ####[facility] [address] [place], [place], [phone] Cholesterol in LDL [Mass/Vol] 55 mg/dL Normal [facility] Comment on above: Result Comment: Bord wdhncv=626-213 mg/dL Higher Avow=407 mg/dL or greater Ballesteros Equation 2020 for LDL-C Performed By: #### L 506.1001, L501.9940, L100.0500, L500.4100, L501.9520, L3100.5310, L500.4050 ####[facility] [address] [place], [address] Cholesterol in VLDL [Mass/Vol] 18 mg/dL Normal 5-40 [facility] Comment on above: Performed By: #### L 506.1001, L501.9940, L100.0500, L500.4100, L501.9520, L3100.5310, L500.4050 ####[facility] [address] [place], [address] Triglyceride [Mass/Vol] 91 mg/dL Normal [facility] Comment on above: Result Comment: The drugs N-Acetylcysteine and Metamizole may falsely depress this assay. Normal range: <150 mg/dL Borderline High: 150-199 mg/dL High: 200-499 mg/dL Very High: >500 mg/dL Performed By: #### L 506.1001, L501.9940, L100.0500, L500.4100, L501.9520, L3100.5310, L500.4050 ####[facility] [address] [place], [address] PSA,Total- Diagnosticon 12-14 PSA, DIAGNOSTIC 0.44 ng/mL Normal 0.00-4.00 [facility] Comment on above: Result Comment: This test was performed using the [employer] [employer] tPSA method. Measured values of a patient??sample can vary depending on the testing procedure used. PSA values determined on patient samples by different testing procedures cannot be used interchangeably. If there is a change in PSA assays while monitoring therapy, sequential testing should be performed to confirm baseline values. Performed By: #### L 506.1001, L501.9940, L100.0500, L500.4100, L501.9520, L3100.5310, L500.4050 ####[facility] [address] [place], [address] Thyroid Stim Hormone (TSH)on 01-10-2025 TSH 1.550 uIU/mL Normal 0.300-4.200 [facility] Comment on above: Performed By: #### L 506.1001, L501.9940, L100.0500, L500.4100, L501.9520, L3100.5310, L500.4050 ####[facility] [address] [place], [address] Vitamin D,25 Hydroxyon 01-10 Vitamin D 25-OH 40.8 ng/mL Normal 30-100 [facility] Comment on above: Result Comment: Marisela min D Status Deficiency: <20 ng/mL (50nmol/L) Insufficiency: 20-30 ng/mL (50-75 nmol/L) Sufficiency: 30-100 ng/mL (75-250 nmol/L) Toxicity: >100 ng/mL (>250 nmol/L) Performed By: #### L 506.1001, L501.9940, L100.0500, L500.4100, L501.9520, L3100.5310, L500.4050 ####[facility] [address] [place], [place], [id number] Absolute lymphocyte countOrd ered By: Holly Arzola on 12-04-2024 Lymphocytes Auto (Unsp spec) [#/Vol] 1.15 10*3/uL 0.83-4.51 [facility] Absolute neutrophil countOrd ered By: Holly Arzola on 12-04-2024 Neutrophils (Bld) [#/Vol] 2.5 10*3/uL 2.0-7.7 [facility] Anion gap in Serum or Plasma Ordered By: Holly Arzola on 12-04-2024 Anion gap [Moles/Vol] 14 mmol/L 5-15 [facility] Automated lymphocyte count a s percentage of total leukocytesOrdered By: Holly Arzola on 12-04-2024 Lymphocytes/100 WBC Auto (Unsp spec) 27.6 % 19-41 [facility] BUN/creatinine ratioOrdered By: Holly Arzola on 12-04-2024 Urea nitrogen/Creatinine [Mass ratio] 15.5 mg/mg 10-20 [facility] Basophil percentageOrdered B y: Holly Arzola on 12-04-2024 Basophils/100 WBC (Bld) 0.7 % 0-1 [facility] Bilirubin, totalOrdered By: Holly Arzola on 12-04-2024 Bilirubin [Mass/Vol] 0.36 mg/dL 0.00-1.[address] [facility] CBC W/Diff, Automatedon 11-13 Absolute Lymph 1.15 X10 3/uL Normal 0.83-4.51 [facility] Comment on above: Performed By: #### L 100.0100, L500.4050 ####[facility] [address] [place], [address] Absolute Neut 2.5 X10 3/uL Normal 2.0-7.7 [facility] Comment on above: Performed By: #### L 100.0100, L500.4050 ####[facility] [address] [place], [address] Basophils/100 WBC (Bld) 0.7 % Normal 0-1 [facility] Comment on above: Performed By: #### L 100.0100, L500.4050 ####[facility] [address] [place], [address] Eosinophils/100 WBC (Bld) 1.9 % Normal 0-5 [facility] Comment on above: Performed By: #### L 100.0100, L500.4050 ####[facility] [address] [place], [address] Erythrocyte distribution width (RBC) [Ratio] 13.9 % Normal 11.6-14.6 [facility] Comment on above: Performed By: #### L 100.0100, L500.4050 ####[facility] [address] [place], [address] Hematocrit (Bld) [Volume fraction] 32.4 % Low 40-54 [facility] Comment on above: Performed By: #### L 100.0100, L500.4050 ####[facility] [address] [place], [address] Hemoglobin (Bld) [Mass/Vol] 11.1 g/dL Low 13.0-16.5 [facility] Comment on above: Performed By: #### L 100.0100, L500.4050 ####[facility] [address] [place], [address] IG% 0.200 Normal 0.0-0.9 [facility] Comment on above: Result Comment: IG% - Immature Granulocytes (promyelocytes, myelocytes and metamyelocytes) > 1% indicates that a LEFT SHIFT is Present. Performed By: #### L 100.0100, L500.4050 ####[facility] [address] [place], [address] Lymphocytes/100 WBC (Bld) 27.6 % Normal 19-41 [facility] Comment on above: Performed By: #### L 100.0100, L500.4050 ####[facility] [address] [place], [address] MCH (RBC) [Entitic mass] 30.5 pg Normal 27.0-32.0 [facility] Comment on above: Performed By: #### L 100.0100, L500.4050 ####[facility] [address] [place], [address] MCHC (RBC) [Mass/Vol] 34.3 g/dL Normal 32-36 [facility] Comment on above: Performed By: #### L 100.0100, L500.4050 ####[facility] [address] [place], [address] MCV (RBC) [Entitic vol] 89.0 fL Normal 80-94 [facility] Comment on above: Performed By: #### L 100.0100, L500.4050 ####[facility] [address] [place], [address] Monocytes/100 WBC (Bld) 8.4 % Normal 0-10 [facility] Comment on above: Performed By: #### L 100.0100, L500.4050 ####[facility] [address] [place], [address] Neutrophils/100 WBC (Bld) 61.2 % Normal 47-70 [facility] Comment on above: Performed By: #### L 100.0100, L500.4050 ####[facility] [address] [place], [address] Nucleated RBC (Bld) [#/Vol] 0 10*3/uL Normal 0-5 [facility] Comment on above: Performed By: #### L 100.0100, L500.4050 ####[facility] [address] [place], [address] Platelet mean volume (Bld) [Entitic vol] 10.7 fL Normal 6.2-12.0 [facility] Comment on above: Performed By: #### L 100.0100, L500.4050 ####[facility] [address] [place], [address] Platelets (Bld) [#/Vol] 186 10*3/uL Normal 150-450 [facility] Comment on above: Performed By: #### L 100.0100, L500.4050 ####[facility] [address] [place], [address] RBC (Bld) [#/Vol] 3.64 10*6/uL Low 4.6-6.2 [facility] Comment on above: Performed By: #### L 100.0100, L500.4050 ####[facility] [address] [place], [address] RDW SD 44.5 fl High 35.1-43.9 [facility] Comment on above: Performed By: #### L 100.0100, L500.4050 ####[facility] [address] [place], [address] WBC (Bld) [#/Vol] 4.2 10*3/uL Low 4.4-11.0 [facility] Comment on above: Performed By: #### L 100.0100, L500.4050 ####[facility] [address] [place], [address] Carbon dioxide, total [Moles /volume] in Central venous bloodOrdered By: Holly Arzola on 12-04-2024 CO2 [Moles/Vol] 21.4 mmol/L 21.0-32.0 [facility] Chloride assayOrdered By: Bipin Arzola on 12-04-2024 Chloride [Moles/Vol] 101 mmol/L 98-[address] [facility] Comprehensive Metabolic Prof ilon 12-04-2024 Albumin [Mass/Vol] 4.1 g/dL Normal 3.4-4.8 [facility] Comment on above: Performed By: #### L 100.0100, L500.4050 ####[facility] [address] [place], [address] Albumin/Globulin [Mass ratio] 1.9 {ratio} Normal 0.9-2.4 [facility] Comment on above: Performed By: #### L 100.0100, L500.4050 ####[facility] [address] [place], [address] ALK PHOS 52 U/L Normal 40-129 [facility] Comment on above: Performed By: #### L 100.0100, L500.4050 ####[facility] [address] [place], [address] ALT [Catalytic activity/Vol] 26 U/L Normal <=46 [facility] Comment on above: Performed By: #### L 100.0100, L500.4050 ####[facility] [address] [place], [address] AST [Catalytic activity/Vol] 34 U/L Normal <=37 [facility] Comment on above: Performed By: #### L 100.0100, L500.4050 ####[facility] [address] [place], [address] Bilirubin [Mass/Vol] 0.36 mg/dL Normal 0.00-1.[address] [facility] Comment on above: Performed By: #### L 100.0100, L500.4050 ####[facility] [address] [place], [address] BUN/CRE 15.5 RATIO Normal 10-20 [facility] Comment on above: Performed By: #### L 100.0100, L500.4050 ####[facility] [address] [place], [address] Calcium [Mass/Vol] 9.1 mg/dL Normal 7.6-11.0 [facility] Comment on above: Performed By: #### L 100.0100, L500.4050 ####[facility] [address] [place], [address] Chloride [Moles/Vol] 101 mmol/L Normal 98-[address] [facility] Comment on above: Performed By: #### L 100.0100, L500.4050 ####[facility] [address] [place], [address] CO2 [Moles/Vol] 21.4 mmol/L Normal 21.0-32.0 [facility] Comment on above: Performed By: #### L 100.0100, L500.4050 ####[facility] [address] [place], [address] Creatinine [Mass/Vol] 1.09 mg/dL Normal 0.70-1.20 [facility] Comment on above: Performed By: #### L 100.0100, L500.4050 ####[facility] [address] [place], [address] GAP 14 Normal 5-15 [facility] Comment on above: Performed By: #### L 100.0100, L500.4050 ####[facility] [address] [place], [address] GFR/1.73 sq M.predicted among non-blacks MDRD (S/P/Bld) [Vol rate/Area] 73 mL/min/{1.73_m2} Normal >60 [facility] Comment on above: Result Comment: mL/m in/1.73m2 CKD-EPI Creatinine Equation (2020) Performed By: #### L 100.0100, L500.4050 ####[facility] [address] [place], [address] Globulin (S) [Mass/Vol] 2.2 g/dL Normal 2.2-4.2 [facility] Comment on above: Performed By: #### L 100.0100, L500.4050 ####[facility] [address] [place], [address] Glucose [Mass/Vol] 135 mg/dL High 70-99 [facility] Comment on above: Performed By: #### L 100.0100, L500.4050 ####[facility] [address] [place], [address] Potassium [Moles/Vol] 3.9 mmol/L Normal 3.3-5.1 [facility] Comment on above: Performed By: #### L 100.0100, L500.4050 ####[facility] [address] [place], [address] Sodium [Moles/Vol] 137 mmol/L Normal 133-145 [facility] Comment on above: Performed By: #### L 100.0100, L500.4050 ####[facility] [address] [place], [address] T PROT 6.3 g/dL Normal 5.9-8.4 [facility] Comment on above: Performed By: #### L 100.0100, L500.4050 ####[facility] [address] [place], [place], [address] Urea nitrogen [Mass/Vol] 17 mg/dL Normal 4-19 [facility] Comment on above: Performed By: #### L 100.0100, L500.4050 ####[facility] [address] [place], [address] Eosinophil percentageOrdered By: Holly Arzola on 12-04-2024 Eosinophils/100 WBC (Bld) 1.9 % 0-5 [facility] Erythrocyte distribution wid th ratioOrdered By: [facility] D[facility]z on 12-04-2024 Erythrocyte distribution width (RBC) [Ratio] 13.9 % 11.6-14.6 [facility] Erythrocyte distribution wid th standard deviationOrdered By: Holly Arzola on 12-04-2024 Erythrocyte distribution width (RBC) [Ratio] 44.5 fl High 35.1-43.9 [facility] Glomerular filtration rate ( GFR) estimation/1.73 sq m using serum, plasma, or whole bOrdered By: Holly Arzola on 12-04-2024 GFR/1.73 sq M.predicted among non-blacks MDRD (S/P/Bld) [Vol rate/Area] 73 mL/min/{1.73_m2} >60 [facility] Comment on above: mL/min/1.73m2 CKD-EP I Creatinine Equation (2020) Hematocrit Auto (Bld) [Volum e fraction]Ordered By: Holly Arzola on 12-04-2024 Hematocrit (Bld) [Volume fraction] 32.4 % Low 40-54 [facility] Hemoglobin measurementOrdere d By: Holly Arzola on 12-04-2024 Hemoglobin (Bld) [Mass/Vol] 11.1 g/dL Low 13.0-16.5 [facility] Immature granulocytes/100 WB C Auto (Bld)Ordered By: Holly Arzola on 12-04-2024 Immature granulocytes/100 WBC (Bld) 0.200 % 0.0-0.9 [facility] Comment on above: IG% - Immature Granu locytes (promyelocytes, myelocytes and metamyelocytes) > 1% indicates that a LEFT SHIFT is Present. Laboratory - Chemistry and C hemistry - challengeOrdered By: Holly Arzola on 12-04-2024 AST [Catalytic activity/Vol] 34 U/L <38 [facility] MCV (mean corpuscular volume ) determinationOrdered By: Holly Arzola on 12-04-2024 MCV (RBC) [Entitic vol] 89.0 fL 80-94 [facility] Mean corpuscular hemoglobin (MCH) determinationOrdered By: Holly Arzola on 12-04-2024 MCH (RBC) [Entitic mass] 30.5 pg 27.0-32.0 [facility] Mean corpuscular hemoglobin concentration (MCHC) determinationOrdered By: Holly Arzola on 12-04-2024 MCHC (RBC) [Mass/Vol] 34.3 g/dL 32-36 [facility] Mean platelet volume determi nationOrdered By: Holly Arzola on 12-04-2024 Platelet mean volume (Bld) [Entitic vol] 10.7 fL 6.2-12.0 [facility] Monocyte percentageOrdered B y: Holly Arzola on 12-04-2024 Monocytes/100 WBC (Bld) 8.4 % 0-10 [facility] Neutrophil percentageOrdered By: Holly Arzola on 12-04-2024 Neutrophils/100 WBC (Bld) 61.2 % 47-70 [facility] Nucleated red blood cell per centageOrdered By: Holly Arzola on 12-04-2024 Nucleated RBC/100 WBC (Bld) [Ratio] 0 % 0-5 [facility] Platelet countOrdered By: Bipin Arzola on 12-04-2024 Platelets (Bld) [#/Vol] 186 10*3/uL 150-450 [facility] Potassium measurement (mass/ volume)Ordered By: Holly Arzola on 12-04-2024 Potassium (Unsp spec) [Mass/Vol] 3.9 mmol/L 3.3-5.1 [facility] RBC Auto (Bld) [#/Vol]Ordere d By: Hloly Arzola on 12-04-2024 RBC (Bld) [#/Vol] 3.64 10*6/uL Low 4.6-6.2 [facility] Serum creatinine measurement (mass/volume)Ordered By: Holly Arzola on 12-04-2024 Creatinine [Mass/Vol] 1.09 mg/dL 0.70-1.20 [facility] Serum globulin measurementOr dered By: Holly Arzola on 12-04-2024 Globulin (S) [Mass/Vol] 2.2 g/dL 2.2-4.2 [facility] Serum glucose measurement (m ass/volume)Ordered By: Holly Arzola on 12-04-2024 Glucose [Mass/Vol] 135 mg/dL High 70-99 [facility] Serum or plasma alanine cowan otransferase (ALT) measurementOrdered By: Holly Arzola on 12-04-2024 ALT [Catalytic activity/Vol] 26 U/L <47 [facility] Serum or plasma albumin ioana urement (mass/volume)Ordered By: Holly Arzola on 12-04-2024 Albumin [Mass/Vol] 4.1 g/dL 3.4-4.8 [facility] Serum or plasma albumin/glob ulin mass ratioOrdered By: Holly Arzola on 12-04-2024 Albumin/Globulin [Mass ratio] 1.9 {ratio} 0.9-2.4 [facility] Serum or plasma alkaline abdirizak sphatase measurementOrdered By: Holly Arzola on 12-04-2024 ALP [Catalytic activity/Vol] 52 U/L 40-129 [facility] Serum or plasma calcium ioana urement (mass/volume)Ordered By: Holly Arzola on 12-04-2024 Calcium [Mass/Vol] 9.1 mg/dL 7.6-11.0 [facility] Serum or plasma urea nitroge n measurement (mass/volume)Ordered By: Holly Arzola on 12-04-2024 Urea nitrogen [Mass/Vol] 17 mg/dL 4-19 [facility] Sodium levelOrdered By: Riki Arzola on 12-04-2024 Sodium [Moles/Vol] 137 mmol/L 133-145 [facility] Total proteinOrdered By: Gillian Arzola on 12-04-2024 Protein [Mass/Vol] 6.3 g/dL 5.9-8.4 [facility] White blood cell (WBC) count Ordered By: Holly Arzola on 12-04-2024 WBC (Bld) [#/Vol] 4.2 10*3/uL Low 4.4-11.0 [facility] Absolute lymphocyte countOrd ered By: [facility] D[facility]z on 10-08-2024 Lymphocytes Auto (Unsp spec) [#/Vol] 1.10 10*3/uL 0.83-4.51 [facility] Absolute neutrophil countOrd ered By: [facility] D[facility] on 10-08-2024 Neutrophils (Bld) [#/Vol] 2.2 10*3/uL 2.0-7.7 [facility] Anion gap in Serum or Plasma Ordered By: Hollyjose Arzola on 10-08-2024 Anion gap [Moles/Vol] 10 mmol/L 5-15 [facility] Automated lymphocyte count a s percentage of total leukocytesOrdered By: Hollyjose Arzola on 10-08-2024 Lymphocytes/100 WBC Auto (Unsp spec) 28.2 % 19-41 [facility] BUN/creatinine ratioOrdered By: [facility] D[facility]z on 10-08-2024 Urea nitrogen/Creatinine [Mass ratio] 11.3 mg/mg 10-20 [facility] Basophil percentageOrdered B y: Holly Arzola on 10-08-2024 Basophils/100 WBC (Bld) 1.3 % High 0-1 [facility] Bilirubin, totalOrdered By: Hollyjose Arzola on 10-08-2024 Bilirubin [Mass/Vol] 0.26 mg/dL 0.00-1.[address] [facility] CBC W/Diff, Automatedon 09-12 Absolute Lymph 1.10 X10 3/uL Normal 0.83-4.51 [facility] Comment on above: Performed By: #### L 500.4050, L100.0100 ####[facility] [address] [place], [place], [id number] Absolute Neut 2.2 X10 3/uL Normal 2.0-7.7 [facility] Comment on above: Performed By: #### L 500.4050, L100.0100 ####[facility] [address] [place], [address] Basophils/100 WBC (Bld) 1.3 % High 0-1 [facility] Comment on above: Performed By: #### L 500.4050, L100.0100 ####[facility] [address] [place], [address] Eosinophils/100 WBC (Bld) 4.9 % Normal 0-5 [facility] Comment on above: Performed By: #### L 500.4050, L100.0100 ####[facility] [address] [place], [address] Erythrocyte distribution width (RBC) [Ratio] 13.6 % Normal 11.6-14.6 [facility] Comment on above: Performed By: #### L 500.4050, L100.0100 ####[facility] [address] [place], [address] Hematocrit (Bld) [Volume fraction] 36.4 % Low 40-54 [facility] Comment on above: Performed By: #### L 500.4050, L100.0100 ####[facility] [address] [place], [address] Hemoglobin (Bld) [Mass/Vol] 12.2 g/dL Low 13.0-16.5 [facility] Comment on above: Performed By: #### L 500.4050, L100.0100 ####[facility] [address] [place], [address] IG% 0.300 Normal 0.0-0.9 [facility] Comment on above: Result Comment: IG% - Immature Granulocytes (promyelocytes, myelocytes and metamyelocytes) > 1% indicates that a LEFT SHIFT is Present. Performed By: #### L 500.4050, L100.0100 ####[facility] [address] [place], [address] Lymphocytes/100 WBC (Bld) 28.2 % Normal 19-41 [facility] Comment on above: Performed By: #### L 500.4050, L100.0100 ####[facility] [address] [place], [address] MCH (RBC) [Entitic mass] 30.3 pg Normal 27.0-32.0 [facility] Comment on above: Performed By: #### L 500.4050, L100.0100 ####[facility] [address] [place], [address] MCHC (RBC) [Mass/Vol] 33.5 g/dL Normal 32-36 [facility] Comment on above: Performed By: #### L 500.4050, L100.0100 ####[facility] [address] [place], [address] MCV (RBC) [Entitic vol] 90.5 fL Normal 80-94 [facility] Comment on above: Performed By: #### L 500.4050, L100.0100 ####[facility] [address] [place], [address] Monocytes/100 WBC (Bld) 8.5 % Normal 0-10 [facility] Comment on above: Performed By: #### L 500.4050, L100.0100 ####[facility] [address] [place], [address] Neutrophils/100 WBC (Bld) 56.8 % Normal 47-70 [facility] Comment on above: Performed By: #### L 500.4050, L100.0100 ####[facility] [address] [place], [address] Nucleated RBC (Bld) [#/Vol] 0 10*3/uL Normal 0-5 [facility] Comment on above: Performed By: #### L 500.4050, L100.0100 ####[facility] [address] [place], [address] Platelet mean volume (Bld) [Entitic vol] 10.2 fL Normal 6.2-12.0 [facility] Comment on above: Performed By: #### L 500.4050, L100.0100 ####[facility] [address] [place], [address] Platelets (Bld) [#/Vol] 200 10*3/uL Normal 150-450 [facility] Comment on above: Performed By: #### L 500.4050, L100.0100 ####[facility] [address] [place], [address] RBC (Bld) [#/Vol] 4.02 10*6/uL Low 4.6-6.2 [facility] Comment on above: Performed By: #### L 500.4050, L100.0100 ####[facility] [address] [place], [address] RDW SD 45.2 fl High 35.1-43.9 [facility] Comment on above: Performed By: #### L 500.4050, L100.0100 ####[facility] [address] [place], [address] WBC (Bld) [#/Vol] 3.9 10*3/uL Low 4.4-11.0 [facility] Comment on above: Performed By: #### L 500.4050, L100.0100 ####[facility] [address] [place], [address] Carbon dioxide, total [Moles /volume] in Central venous bloodOrdered By: Holly Arzola on 10-08-2024 CO2 [Moles/Vol] 25.3 mmol/L 21.0-32.0 [facility] Chloride assayOrdered By: Bipin Arzola on 10-08-2024 Chloride [Moles/Vol] 105 mmol/L 98-[address] [facility] Comprehensive Metabolic Prof ilon 10-08-2024 ALK PHOS 65 U/L Normal 40-129 [facility] Comment on above: Performed By: #### L 500.4050, L100.0100 ####[facility] [address] [place], [address] ALT [Catalytic activity/Vol] 30 U/L Normal <=46 [facility] Comment on above: Performed By: #### L 500.4050, L100.0100 ####[facility] [address] [place], [address] AST [Catalytic activity/Vol] 39 U/L High <=37 [facility] Comment on above: Performed By: #### L 500.4050, L100.0100 ####[facility] [address] [place], [address] Bilirubin [Mass/Vol] 0.26 mg/dL Normal 0.00-1.[address] [facility] Comment on above: Performed By: #### L 500.4050, L100.0100 ####[facility] [address] [place], [address] Calcium [Mass/Vol] 9.2 mg/dL Normal 7.6-11.0 [facility] Comment on above: Performed By: #### L 500.4050, L100.0100 ####[facility] [address] [place], [address] Chloride [Moles/Vol] 105 mmol/L Normal 98-[address] [facility] Comment on above: Performed By: #### L 500.4050, L100.0100 ####[facility] [address] [place], [address] CO2 [Moles/Vol] 25.3 mmol/L Normal 21.0-32.0 [facility] Comment on above: Performed By: #### L 500.4050, L100.0100 ####[facility] [address] [place], [address] GAP 10 Normal 5-15 [facility] Comment on above: Performed By: #### L 500.4050, L100.0100 ####[facility] [address] [place], [address] Potassium [Moles/Vol] 4.0 mmol/L Normal 3.3-5.1 [facility] Comment on above: Performed By: #### L 500.4050, L100.0100 ####[facility] [address] [place], [address] Sodium [Moles/Vol] 141 mmol/L Normal 133-145 [facility] Comment on above: Performed By: #### L 500.4050, L100.0100 ####[facility] [address] [place], [address] Albumin [Mass/Vol] 4.0 g/dL Normal 3.4-4.8 [facility] Comment on above: Performed By: #### L 500.4050, L100.0100 ####[facility] [address] [place], [address] Albumin/Globulin [Mass ratio] 1.7 {ratio} Normal 0.9-2.4 [facility] Comment on above: Performed By: #### L 500.4050, L100.0100 ####[facility] [address] [place], [address] BUN/CRE 11.3 RATIO Normal 10-20 [facility] Comment on above: Performed By: #### L 500.4050, L100.0100 ####[facility] [address] [place], [address] Creatinine [Mass/Vol] 1.05 mg/dL Normal 0.70-1.20 [facility] Comment on above: Performed By: #### L 500.4050, L100.0100 ####[facility] [address] [place], [address] GFR/1.73 sq M.predicted among non-blacks MDRD (S/P/Bld) [Vol rate/Area] 76 mL/min/{1.73_m2} Normal >60 [facility] Comment on above: Result Comment: mL/m in/1.73m2 CKD-EPI Creatinine Equation (2020) Performed By: #### L 500.4050, L100.0100 ####[facility] [address] [place], [address] Globulin (S) [Mass/Vol] 2.4 g/dL Normal 2.2-4.2 [facility] Comment on above: Performed By: #### L 500.4050, L100.0100 ####[facility] [address] [place], [address] Glucose [Mass/Vol] 114 mg/dL High 70-99 [facility] Comment on above: Performed By: #### L 500.4050, L100.0100 ####[facility] [address] [place], [address] T PROT 6.4 g/dL Normal 5.9-8.4 [facility] Comment on above: Performed By: #### L 500.4050, L100.0100 ####[facility] [address] [place], [address] Urea nitrogen [Mass/Vol] 12 mg/dL Normal 4-19 [facility] Comment on above: Performed By: #### L 500.4050, L100.0100 ####[facility] [address] [place], [address] Eosinophil percentageOrdered By: Holly Arzola on 10-08-2024 Eosinophils/100 WBC (Bld) 4.9 % 0-5 [facility] Erythrocyte distribution wid th ratioOrdered By: Holly Arzola on 10-08-2024 Erythrocyte distribution width (RBC) [Ratio] 13.6 % 11.6-14.6 [facility] Erythrocyte distribution wid th standard deviationOrdered By: Holly Arzola on 10-08-2024 Erythrocyte distribution width (RBC) [Ratio] 45.2 fl High 35.1-43.9 [facility] Glomerular filtration rate ( GFR) estimation/1.73 sq m using serum, plasma, or whole bOrdered By: Hollyjose Arzola on 10-08-2024 GFR/1.73 sq M.predicted among non-blacks MDRD (S/P/Bld) [Vol rate/Area] 76 mL/min/{1.73_m2} >60 [facility] Comment on above: mL/min/1.73m2 CKD-EP I Creatinine Equation (2020) Hematocrit Auto (Bld) [Volum e fraction]Ordered By: Holly Arzola on 10-08-2024 Hematocrit (Bld) [Volume fraction] 36.4 % Low 40-54 [facility] Hemoglobin measurementOrdere d By: Holly Arzola on 10-08-2024 Hemoglobin (Bld) [Mass/Vol] 12.2 g/dL Low 13.0-16.5 [facility] Immature granulocytes/100 WB C Auto (Bld)Ordered By: Holly Arzola on 10-08-2024 Immature granulocytes/100 WBC (Bld) 0.300 % 0.0-0.9 [facility] Comment on above: IG% - Immature Granu locytes (promyelocytes, myelocytes and metamyelocytes) > 1% indicates that a LEFT SHIFT is Present. Laboratory - Chemistry and C hemistry - challengeOrdered By: Holly Arzola on 10-08-2024 AST [Catalytic activity/Vol] 39 U/L High <38 [facility] MCV (mean corpuscular volume ) determinationOrdered By: Holly Arzola on 10-08-2024 MCV (RBC) [Entitic vol] 90.5 fL 80-94 [facility] Mean corpuscular hemoglobin (MCH) determinationOrdered By: Holly Arzola on 10-08-2024 MCH (RBC) [Entitic mass] 30.3 pg 27.0-32.0 [facility] Mean corpuscular hemoglobin concentration (MCHC) determinationOrdered By: Holly Arzola on 10-08-2024 MCHC (RBC) [Mass/Vol] 33.5 g/dL 32-36 [facility] Mean platelet volume determi nationOrdered By: Holly Arzola on 10-08-2024 Platelet mean volume (Bld) [Entitic vol] 10.2 fL 6.2-12.0 [facility] Monocyte percentageOrdered B y: Holly Arzola on 10-08-2024 Monocytes/100 WBC (Bld) 8.5 % 0-10 [facility] Neutrophil percentageOrdered By: Holly Arzola on 10-08-2024 Neutrophils/100 WBC (Bld) 56.8 % 47-70 [facility] Nucleated red blood cell per centageOrdered By: Holly Arzola on 10-08-2024 Nucleated RBC/100 WBC (Bld) [Ratio] 0 % 0-5 [facility] Platelet countOrdered By: Bipin Arzola on 10-08-2024 Platelets (Bld) [#/Vol] 200 10*3/uL 150-450 [facility] Potassium measurement (mass/ volume)Ordered By: Holly Arzola on 10-08-2024 Potassium (Unsp spec) [Mass/Vol] 4.0 mmol/L 3.3-5.1 [facility] RBC Auto (Bld) [#/Vol]Ordere d By: Holly Arzola on 10-08-2024 RBC (Bld) [#/Vol] 4.02 10*6/uL Low 4.6-6.2 [facility] Serum creatinine measurement (mass/volume)Ordered By: Holly Arzola on 10-08-2024 Creatinine [Mass/Vol] 1.05 mg/dL 0.70-1.20 [facility] Serum globulin measurementOr dered By: Holly Arzola on 10-08-2024 Globulin (S) [Mass/Vol] 2.4 g/dL 2.2-4.2 [facility] Serum glucose measurement (m ass/volume)Ordered By: Holly Arzola on 10-08-2024 Glucose [Mass/Vol] 114 mg/dL High 70-99 [facility] Serum or plasma alanine cowan otransferase (ALT) measurementOrdered By: Holly Arzola on 10-08-2024 ALT [Catalytic activity/Vol] 30 U/L <47 [facility] Serum or plasma albumin ioana urement (mass/volume)Ordered By: Holly Arzola on 10-08-2024 Albumin [Mass/Vol] 4.0 g/dL 3.4-4.8 [facility] Serum or plasma albumin/glob ulin mass ratioOrdered By: Holly Arzola on 10-08-2024 Albumin/Globulin [Mass ratio] 1.7 {ratio} 0.9-2.4 [facility] Serum or plasma alkaline abdirizak sphatase measurementOrdered By: Holly Arzola on 10-08-2024 ALP [Catalytic activity/Vol] 65 U/L 40-129 [facility] Serum or plasma calcium ioana urement (mass/volume)Ordered By: Holly Arzola on 10-08-2024 Calcium [Mass/Vol] 9.2 mg/dL 7.6-11.0 [facility] Serum or plasma urea nitroge n measurement (mass/volume)Ordered By: Holly Arzola on 10-08-2024 Urea nitrogen [Mass/Vol] 12 mg/dL 4-19 [facility] Sodium levelOrdered By: Riki Arzola on 10-08-2024 Sodium [Moles/Vol] 141 mmol/L 133-145 [facility] Total proteinOrdered By: Gillian Arzola on 10-08-2024 Protein [Mass/Vol] 6.4 g/dL 5.9-8.4 [facility] White blood cell (WBC) count Ordered By: Holly Arzola on 10-08-2024 WBC (Bld) [#/Vol] 3.9 10*3/uL Low 4.4-11.0 [facility] PT D/C Summary (1)on 025 PT D/C Summary (1) [facility] Physical Therapy [facility] [address] [place] [address] / REHABILITATION SERVICES DISCHARGE SUMMARY MR#: [id number] Acct: [id number] Name: VAUGHN DINERO Rep #: [id number] : 1955 69 From: Cam Santillan PT, ATC Referring Dr.: Dr. Reginaldo Blank DO Status: R EG RCR Insurance: MEDICARE PART A B [employer] SR SUPPLEMENT INS Discharge Summary D/C summary: It has been my pleasure to treat VAUGHN DINERO referred by Dr. Reginaldo Blank DO, with the diagnosis of Patellar tendonitis, IT band for a total of 16 visit(s). Discharge Date: Please see the following information for a summary of their discharge status. Subjective Subjective: Pt reports he is doing better, but still has pain Pain R knee: Pain Intensity (Out of 10): 3 Overall Improvement % Improvement: 75 Objective Objective/Function: R knee MMT: flex= 38, ext= 48 #F 3/10 pain Pt is I with HEP FGA 30/30 Goals Goal 1:: Increase R knee strength x 5-10 #F to aid with IADL's Goal Progress: Goal Met Goal 2:: Decrease R knee pain x 50% to aid with sleep Goal Progress: Goal Met Goal 3:: I with HEP Goal Progress: Goal Met Goal 4:: Increase FGA score to 25/30 to aid with fall prevention Goal Progress: Goal Met Plan Plan: Discharge to HEP D/C Information d/c sentence: If there are questions or concerns regarding this patient's physical therapy, please feel free to call me at [phone]. Thank you for the referral of this patient. Sincerely, Cam Santillan, PT, ATC Balance/Gait/Functiona l tests Balance/Special Test Scores Functional Gait Assessment Score: 30 % Disability: 0 Lower Extremity Functional Score: 80 Improvement % Improvement: 75 09/28/24 0731 CC: Dr. Reginaldo Blank DO; Dr. True Ibarra DO [facility] Signed Normal [facility] Inital Evaluation (1) - PTon 08-17-2024 Inital Evaluation (1) - PT [facility] Physical Therapy [facility] [address] [place] [address] / REHABILITATION SERVICES INITIAL EVALUATION MR#: [id number] Acct: [id number] Name: VAUGHN DINERO Rep #: [id number] : 1955 69 From: Cam Santillan PT, ATC Referring Dr.: Dr. Reginaldo Blank DO Status: R EG RCR Insurance: MEDICARE PART A B [employer] SR SUPPLEMENT INS Patient's Visit Information Visit Information Visit Information: VAUGHN DINERO is a 69 year old M referred to Physical Therapy by Dr. Reginaldo Blank DO with a diagnosis of Patellar tendonitis, IT band. Date of Evaluation: 07/24/24 Physical Therapist: Cam Santillan, PT, ATC Visit Plan Frequency: 2x /Week Duration: 3 Weeks Plan: R knee stretching and strengthening, balance and proprio, core strengthening, bike, and HEP Subjective Subjective: DOS: 2021. Pt reports he had a R TKA performed at that time. Pt reports he was doing really good, but then all the sudden his R knee started to swell up on him. Pt reports he has had his R knee drained several times since that surgery, but the swelling always comes back. Pt reports he has had x-rays wh8ich revealed that the prosthetic is aligned correctly. Pt notes his R knee will lock up on him on occasion. Pt reports he has difficulty with sleep at this time as he is unable to lye in any position for an extended period of time. Pt reports he has numbness in R lateral knee all the time. Pt reports his R knee will buckle on him occasionally, but he has experienced no falls. 5/10 pain at rest, 8/10 pain at worst (when he is trying to sleep) Pain R knee: Pain Intensity (Out of 10): 2 Pain Intensity Range: 8 Objective Objective: Neuro: B LE sensation is WNL to light touch Palpation: Pt has minimal soreness on inferior patellar tendon and distal IT band. No obvious deformity present at this time. ROM: L knee 0-135 degrees; R knee 0-135 degrees MMT: L knee flex= 45, ext= 41; R knee flex= 37, ext= 38 #F Balance/Special Test Scores Lower Extremity Functional Score: 49 Goals Goal 1:: Increase R knee strength x 5-10 #F to aid with IADL's Goal Time Frame: 4-6 Weeks Goal 2:: Decrease R knee pain x 50% to aid with sleep Goal Time Frame: 4-6 Weeks Goal 3:: I with HEP Goal Time Frame: 4-6 Weeks Rehabilitation Potential Physical Therapy Diagnosis: Pt has R knee pain, weakness, and difficulty with sleep secondary to R knee tendinopathy. Rehabilitation Potential: Good Anticipated Interventions Patient/Client Instruction: Educate patient on: Condition and Plan of Care For the Purpose of:: To improve self management Therapeutic Exercise to Include: Strength training, Endurance training, Balance training, Flexibilty training, Active ROM and Dynamic Lumbar Stabilization For the Purpose of:: To decrease pain, To increase ROM and To improve muscle performance and motor function Cryotherapy (ice pack, ice massage): Yes For the Purpose of:: To decrease pain Text: Thank you for the opportunity to evaluate your patient. For Medicare and Medicare HMO plans, please review the plan of care and approve it. It will need to be FAXED BACK to us at [phone] for Medicare purposes. For Medicare only, by signing this I certify the plan of care. Please let me know if there are questions or concerns regarding this plan of care. Physician Signature: Date:__ 08/17/24 0721 CC: Dr. Reginaldo Blank DO; Dr. True Ibarra DO [facility] Signed Normal [facility] Re-Evaluation - PT (1)on Re-Evaluation - PT (1) [facility] Physical Therapy [facility] [address] [place] [address] [address] [place] [address] / REEVALUATION / MEDICARE RECERTIFICATION PHYSICAL THERAPY MR#: [id number] Acct: [id number] Name: VAUGHN DINERO Rep #: [id number] : 1955 69 From: Cam Santillan PT, ATC Referring Dr.: Dr. Reginaldo Blank DO Status:REG RCR Insurance: MEDICARE PART A B [employer] SR SUPPLEMENT INS Re-Evaluation Intro: Dr. Reginaldo Blank, DO, It has been my pleasure to treat VAUGHN DINERO over the last 7 visits for Patellar tendonitis, IT band. Please see the progress note below for an update on the physical therapy plan of care! Subjective Subjective: I have made a lot of improvement, but I am not where I want to be at yet. Pt notes his balance is still off, and he is limited with IADL's that he used to be able to do (climb a ladder, negotiate stairs) Objective Objective/Function: R knee pain ranges from 2-6/10 R knee MMT: flex= 44, ext= 56 #F Pt is progressing with a HEP FGA 23/30- indicating a balance deficit at this time Plan Plan Plan: R knee stretching and strengthening, balance and proprio, core strengthening, bike, and HEP Balance/Gait/Functiona l tests Balance/Special Test Scores Functional Gait Assessment Score: 23 % Disability: 23.3400 Lower Extremity Functional Score: 49 Goals Goals Goal 1:: Increase R knee strength x 5-10 #F to aid with IADL's Goal Time Frame: 4-6 Weeks Goal Progress: Goal Met Goal 2:: Decrease R knee pain x 50% to aid with sleep Goal Time Frame: 4-6 Weeks Goal Progress: Progressing Goal 3:: I with HEP Goal Time Frame: 4-6 Weeks Goal Progress: Progressing Goal 4:: Increase FGA score to 25/30 to aid with fall prevention Goal Progress: New goal Anticipated Interventions Anticipated Interventions Patient/Client Instruction: Educate patient on: Condition and Plan of Care For the Purpose of:: To improve self management Therapeutic Exercise to Include: Strength training, Endurance training, Balance training, Flexibilty training, Active ROM and Dynamic Lumbar Stabilization For the Purpose of:: To decrease pain, To increase ROM and To improve muscle performance and motor function Cryotherapy (ice pack, ice massage): Yes For the Purpose of:: To decrease pain Re-Evaluation Ending Re-evaluation ending: Please do not hesitate to contact me at [phone] by phone or if you have questions or concerns regarding this new plan of care! Sincerely, Cam Santillan, PT, ATC 08/17/24 0735 CC: Dr. Reginaldo Blank DO; Dr. True Ibarra DO [facility] Signed For Medicare only, by signing this I certify the plan of care. Physicians Signature Date Normal [facility] PSA T AND F w/ Serial Monito cynthia 08-08-2024 PSA, TOTAL ULTR Normal [facility] Comment on above: Result Comment: TEST RESULTS LIMITS PSA Total+% Free (Serial) Prostate Specific Ag 0.5 ng/mL 0.0-4.0 [facility]ores ECLIA methodology. According to the [employer], Serum PSA should decrease and remain at undetectable levels after radical prostatectomy. The AUA defines biochemical recurrence as an initial PSA value 0.2 ng/mL or greater followed by a subsequent confirmatory PSA value 0.2 ng/mL or greater. Values obtained with different assay methods or kits cannot be used interchangeably. Results cannot be interpreted as absolute evidence of the presence or absence of malignant disease. PSA, Free 0.17 ng/mL N/A [facility]ores ECLIA methodology. % Free PSA 34.0 % The table below lists the probability of prostate cancer for men with non-suspicious ASHLEY results and total PSA between 4 and 10 ng/mL, by patient age (Pranay et al, RADHA 1998, 279:1542). % Free PSA 50-64 yr 65-75 yr 0.00-10.00% 56% 55% 10.01-15.00% 24% 35% 15.01-20.00% 17% 23% 20.01-25.00% 10% 20% >25.00% 5% 9% Please note: Pranay et al did not make specific recommendations regarding the use of percent free PSA for any other population of men [facility]. ORIGINAL REPORT ON FILE IN LAB CONTAINS ADDITIONAL TEST SITE INFORMATION. Performed By: #### L 500.4050, L300.3900, L100.0100, L300.4310, L3130.0010, L504.2610, L300.4700, L3100.3425 #### [facility] Laboratory [address] [place], [address] Testosterone, Total / Freeon 08-08-2024 TESTOSTER,TOTAL Normal [facility] Comment on above: Order Comment: N Result Comment: TEST RESULTS LIMITS Testosterone, Free/Tot Equilib Testosterone 624 ng/dL 264-916 Adult male reference interval is based on a population of healthy nonobese males (BMI <30) between 19 and 39 years old. Aniceto et.al. JCEM 2017,102;2639-8793. PMID: 76102422. Testosterone,Free 20.84 ng/dL 5.00-21.00 % Free Testosterone 3.34 % 1.50-4.20 TESTING PERFORMED AT [facility]. ORIGINAL REPORT ON FILE IN LAB CONTAINS ADDITIONAL TEST SITE INFORMATION. Performed By: #### L 500.4050, L300.3900, L100.0100, L300.4310, L3130.0010, L504.2610, L300.4700, L3100.3425 #### [facility] [address] [place], [address] Absolute lymphocyte countOrd ered By: Reginaldo Aric on 07-19-2024 Lymphocytes Auto (Unsp spec) [#/Vol] 1.09 10*3/uL 0.83-4.51 [facility] Absolute neutrophil countOrd ered By: [facility] on 07-19-2024 Neutrophils (Bld) [#/Vol] 2.5 10*3/uL 2.0-7.7 [facility] Anion gap in Serum or Plasma Ordered By: Reginaldo Nava on 07-19-2024 Anion gap [Moles/Vol] 11 mmol/L 5-15 [facility] Automated lymphocyte count a s percentage of total leukocytesOrdered By: Reginaldo Aric on 07-19-2024 Lymphocytes/100 WBC Auto (Unsp spec) 27.0 % 19-41 [facility] BUN/creatinine ratioOrdered By: [facility] on 07-19-2024 Urea nitrogen/Creatinine [Mass ratio] 11.4 mg/mg 10-20 [facility] Basophil percentageOrdered B y: Reginaldo Nava on 07-19-2024 Basophils/100 WBC (Bld) 0.5 % 0-1 [facility] Bilirubin, totalOrdered By: Reginaldo Nava on 07-19-2024 Bilirubin [Mass/Vol] 0.34 mg/dL 0.00-1.[address] [facility] CBC W/Diff, Automatedon Absolute Lymph 1.09 X10 3/uL Normal 0.83-4.51 [facility] Comment on above: Performed By: #### L 100.0100, L500.4050 ####[facility] [address] [place], [address] Absolute Neut 2.5 X10 3/uL Normal 2.0-7.7 [facility] Comment on above: Performed By: #### L 100.0100, L500.4050 ####[facility] [address] [place], [address] Basophils/100 WBC (Bld) 0.5 % Normal 0-1 [facility] Comment on above: Performed By: #### L 100.0100, L500.4050 ####[facility] [address] [place], [address] Eosinophils/100 WBC (Bld) 2.2 % Normal 0-5 [facility] Comment on above: Performed By: #### L 100.0100, L500.4050 ####[facility] [address] [place], [address] Erythrocyte distribution width (RBC) [Ratio] 13.7 % Normal 11.6-14.6 [facility] Comment on above: Performed By: #### L 100.0100, L500.4050 ####[facility] [address] [place], [address] Hematocrit (Bld) [Volume fraction] 33.2 % Low 40-54 [facility] Comment on above: Performed By: #### L 100.0100, L500.4050 ####[facility] [address] [place], [address] Hemoglobin (Bld) [Mass/Vol] 11.6 g/dL Low 13.0-16.5 [facility] Comment on above: Performed By: #### L 100.0100, L500.4050 ####[facility] [address] [place], [address] IG% 0.200 Normal 0.0-0.9 [facility] Comment on above: Result Comment: IG% - Immature Granulocytes (promyelocytes, myelocytes and metamyelocytes) > 1% indicates that a LEFT SHIFT is Present. Performed By: #### L 100.0100, L500.4050 ####[facility] [address] [place], [address] Lymphocytes/100 WBC (Bld) 27.0 % Normal 19-41 [facility] Comment on above: Performed By: #### L 100.0100, L500.4050 ####[facility] [address] [place], [address] MCH (RBC) [Entitic mass] 31.0 pg Normal 27.0-32.0 [facility] Comment on above: Performed By: #### L 100.0100, L500.4050 ####[facility] [address] [place], [address] MCHC (RBC) [Mass/Vol] 34.9 g/dL Normal 32-36 [facility] Comment on above: Performed By: #### L 100.0100, L500.4050 ####[facility] [address] [place], [address] MCV (RBC) [Entitic vol] 88.8 fL Normal 80-94 [facility] Comment on above: Performed By: #### L 100.0100, L500.4050 ####[facility] [address] [place], [address] Monocytes/100 WBC (Bld) 8.9 % Normal 0-10 [facility] Comment on above: Performed By: #### L 100.0100, L500.4050 ####[facility] [address] [place], [address] Neutrophils/100 WBC (Bld) 61.2 % Normal 47-70 [facility] Comment on above: Performed By: #### L 100.0100, L500.4050 ####[facility] [address] [place], [address] Nucleated RBC (Bld) [#/Vol] 0 10*3/uL Normal 0-5 [facility] Comment on above: Performed By: #### L 100.0100, L500.4050 ####[facility] [address] [place], [address] Platelet mean volume (Bld) [Entitic vol] 9.4 fL Normal 6.2-12.0 [facility] Comment on above: Performed By: #### L 100.0100, L500.4050 ####[facility] [address] [place], [address] Platelets (Bld) [#/Vol] 185 10*3/uL Normal 150-450 [facility] Comment on above: Performed By: #### L 100.0100, L500.4050 ####[facility] [address] [place], [address] RBC (Bld) [#/Vol] 3.74 10*6/uL Low 4.6-6.2 [facility] Comment on above: Performed By: #### L 100.0100, L500.4050 ####[facility] [address] [place], [address] RDW SD 44.5 fl High 35.1-43.9 [facility] Comment on above: Performed By: #### L 100.0100, L500.4050 ####[facility] [address] [place], [address] WBC (Bld) [#/Vol] 4.0 10*3/uL Low 4.4-11.0 [facility] Comment on above: Performed By: #### L 100.0100, L500.4050 ####[facility] [address] [place], [address] Carbon dioxide, total [Moles /volume] in Central venous bloodOrdered By: Reginaldo Nava on 07-19-2024 CO2 [Moles/Vol] 24.4 mmol/L 21.0-32.0 [facility] Chloride assayOrdered By: Linnea Nava on 07-19-2024 Chloride [Moles/Vol] 103 mmol/L 98-[address] [facility] Comprehensive Metabolic Prof ilon 07-19-2024 Albumin [Mass/Vol] 4.1 g/dL Normal 3.4-4.8 [facility] Comment on above: Performed By: #### L 100.0100, L500.4050 ####[facility] [address] [place], [address] Albumin/Globulin [Mass ratio] 1.8 {ratio} Normal 0.9-2.4 [facility] Comment on above: Performed By: #### L 100.0100, L500.4050 ####[facility] [address] [place], [address] ALK PHOS 61 U/L Normal 40-129 [facility] Comment on above: Performed By: #### L 100.0100, L500.4050 ####[facility] [address] [place], [address] ALT [Catalytic activity/Vol] 29 U/L Normal <=46 [facility] Comment on above: Performed By: #### L 100.0100, L500.4050 ####[facility] [address] [place], [address] AST [Catalytic activity/Vol] 43 U/L High <=37 [facility] Comment on above: Performed By: #### L 100.0100, L500.4050 ####[facility] [address] [place], [address] Bilirubin [Mass/Vol] 0.34 mg/dL Normal 0.00-1.[address] [facility] Comment on above: Performed By: #### L 100.0100, L500.4050 ####[facility] [address] [place], [address] BUN/CRE 11.4 RATIO Normal 10-20 [facility] Comment on above: Performed By: #### L 100.0100, L500.4050 ####[facility] [address] [place], [address] Calcium [Mass/Vol] 9.3 mg/dL Normal 7.6-11.0 [facility] Comment on above: Performed By: #### L 100.0100, L500.4050 ####[facility] [address] [place], [address] Chloride [Moles/Vol] 103 mmol/L Normal 98-[address] [facility] Comment on above: Performed By: #### L 100.0100, L500.4050 ####[facility] [address] [place], [address] CO2 [Moles/Vol] 24.4 mmol/L Normal 21.0-32.0 [facility] Comment on above: Performed By: #### L 100.0100, L500.4050 ####[facility] [address] [place], [address] Creatinine [Mass/Vol] 1.26 mg/dL High 0.70-1.20 [facility] Comment on above: Performed By: #### L 100.0100, L500.4050 ####[facility] [address] [place], [address] ECRCL 49.23 ml/min Low 50-250 [facility] Comment on above: Performed By: #### L 100.0100, L500.4050 ####[facility] [address] [place], [address] GAP 11 Normal 5-15 [facility] Comment on above: Performed By: #### L 100.0100, L500.4050 ####[facility] [address] [place], [address] GFR/1.73 sq M.predicted among non-blacks MDRD (S/P/Bld) [Vol rate/Area] 61 mL/min/{1.73_m2} Normal >60 [facility] Comment on above: Result Comment: mL/m in/1.73m2 CKD-EPI Creatinine Equation (2020) Performed By: #### L 100.0100, L500.4050 ####[facility] [address] [place], [address] Globulin (S) [Mass/Vol] 2.2 g/dL Normal 2.2-4.2 [facility] Comment on above: Performed By: #### L 100.0100, L500.4050 ####[facility] [address] [place], [address] Glucose [Mass/Vol] 156 mg/dL High 70-99 [facility] Comment on above: Performed By: #### L 100.0100, L500.4050 ####[facility] [address] [place], [address] Potassium [Moles/Vol] 3.9 mmol/L Normal 3.3-5.1 [facility] Comment on above: Performed By: #### L 100.0100, L500.4050 ####[facility] [address] [place], [address] Sodium [Moles/Vol] 138 mmol/L Normal 133-145 [facility] Comment on above: Performed By: #### L 100.0100, L500.4050 ####[facility] [address] [place], [address] T PROT 6.3 g/dL Normal 5.9-8.4 [facility] Comment on above: Performed By: #### L 100.0100, L500.4050 ####[facility] [address] [place], [address] Urea nitrogen [Mass/Vol] 14 mg/dL Normal 4-19 [facility] Comment on above: Performed By: #### L 100.0100, L500.4050 ####[facility] [address] [place], [address] Eosinophil percentageOrdered By: Reginaldo Nava on 07-19-2024 Eosinophils/100 WBC (Bld) 2.2 % 0-5 [facility] Erythrocyte distribution wid th ratioOrdered By: Reginaldo Nava on 07-19-2024 Erythrocyte distribution width (RBC) [Ratio] 13.7 % 11.6-14.6 [facility] Erythrocyte distribution wid th standard deviationOrdered By: Reginaldo Nava on 07-19-2024 Erythrocyte distribution width (RBC) [Ratio] 44.5 fl High 35.1-43.9 [facility] Glomerular filtration rate ( GFR) estimation/1.73 sq m using serum, plasma, or whole bOrdered By: Reginaldo Nava on 07-19-2024 GFR/1.73 sq M.predicted among non-blacks MDRD (S/P/Bld) [Vol rate/Area] 61 mL/min/{1.73_m2} >60 [facility] Comment on above: mL/min/1.73m2 CKD-EP I Creatinine Equation (2020) Hematocrit Auto (Bld) [Volum e fraction]Ordered By: Reginaldo Nava on 07-19-2024 Hematocrit (Bld) [Volume fraction] 33.2 % Low 40-54 [facility] Hemoglobin measurementOrdere d By: Reginaldo Nava on 07-19-2024 Hemoglobin (Bld) [Mass/Vol] 11.6 g/dL Low 13.0-16.5 [facility] Immature granulocytes/100 WB C Auto (Bld)Ordered By: Reginaldo Nava on 07-19-2024 Immature granulocytes/100 WBC (Bld) 0.200 % 0.0-0.9 [facility] Comment on above: IG% - Immature Granu locytes (promyelocytes, myelocytes and metamyelocytes) > 1% indicates that a LEFT SHIFT is Present. Laboratory - Chemistry and C hemistry - challengeOrdered By: Reginaldo Nava on 07-19-2024 AST [Catalytic activity/Vol] 43 U/L High <38 [facility] MCV (mean corpuscular volume ) determinationOrdered By: Reginaldo Nava on 07-19-2024 MCV (RBC) [Entitic vol] 88.8 fL 80-94 [facility] Mean corpuscular hemoglobin (MCH) determinationOrdered By: Reginaldo Nava on 07-19-2024 MCH (RBC) [Entitic mass] 31.0 pg 27.0-32.0 [facility] Mean corpuscular hemoglobin concentration (MCHC) determinationOrdered By: Reginaldo Nava on 07-19-2024 MCHC (RBC) [Mass/Vol] 34.9 g/dL 32-36 [facility] Mean platelet volume determi nationOrdered By: Reginaldo Nava on 07-19-2024 Platelet mean volume (Bld) [Entitic vol] 9.4 fL 6.2-12.0 [facility] Monocyte percentageOrdered B y: Reginaldo Nava on 07-19-2024 Monocytes/100 WBC (Bld) 8.9 % 0-10 [facility] Neutrophil percentageOrdered By: Reginaldo Nava on 07-19-2024 Neutrophils/100 WBC (Bld) 61.2 % 47-70 [facility] Nucleated red blood cell per centageOrdered By: Reginaldo Nava on 07-19-2024 Nucleated RBC/100 WBC (Bld) [Ratio] 0 % 0-5 [facility] Oncology Visit Reporton 05 Oncology Visit Report [facility] [place] [facility] [address] [place] [address] OFFICE VISIT Date of Service: 07/19/24 1528 MR#: [id number] Acct: [id number] Name: VAUGHN DINERO Rep #: [id number] : 1955 From: Reginaldo Nava MD Age/Sex: 69/M [place] [facility] [place]: Signed HPI Subjective Date of Service 07/19/24 Chief Complaint F/u for Leukocytopenia and bruise. History of Present Illness 69 y.o.man presented with Leukopenia/Neutropenia , had a bone marrow bx on 07/02/2014 which showed Normocellular bone marrow, Trilineage hematopoiesis with no significant pathologic change. IFX showed no monoclonal Gammopathy. He was found to have Iron deficiency and started Oral iron pills. He had spontaneous left eyelids bruise. Plavix was discontinued. Bruising resolved. He was on observation, had another spontaneous bruise of the R eyelid within a matter of 4 weeks. Bruising work up has been negative. He is on observation, comes for follow up. Feels well, no more bruising episodes. [facility] Medical History Ischemic cardiomyopathy Tear of right rotator cuff Elevated serum creatinine Anemia Foraminal stenosis of cervical region Rotator cuff tendonitis Inflammation of joint of right shoulder region Right shoulder pain Tear of medial meniscus of left knee Effusion of knee joint right Essential hypertension Anterior myocardial infarction (11/09/20) Atherosclerotic heart disease of [place] coronary artery without angina pectoris ADHD Mechanical pain of left knee Bunion of great toe of right foot Hammer toe of right foot GERD (gastroesophageal reflux disease) 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 Back problem Arthritis Osteoarthritis, multiple sites Surgical History History of right shoulder replacement Previous back surgery History of lumbar spinal fusion History of surgery on left wrist ( 04/2021) History of fusion of cervical spine History of total right knee replacement History of coronary artery stent placement (11/09/20) History of knee surgery Status post reverse total shoulder replacement S/P hernia repair s/p feet s/p hands s/p forearms s/p elbows s/p shoulders s/p neck Family History Mother Lung cancer Father Cancer bladder Depression Emphysema lung Sister Pacemaker Social History household members: spouse Smoking Status: Former smoker alcohol intake: never substance use type: does not use what type of physical activity do you participate in: walking Intake Vital Signs 04/26/24 15:54 07/19/24 15:29 Height 5 ft 6 in 5 ft 6 in Weight: 67.585 kg BMI 24.0 BP 133/75 H Blood Pressure Location Rt brachial Position Sitting Respiration 14 Pulse 68 Pulse Source Monitor Temp 98.8 F Temperature Source Temporal Artery Pulse Oximetry (%) 98 Oxygen Delivery Method room air Intake Business Line Manager Required: No Accompanied by: Is patient in pain?: Yes (generalized joint) Pain scale (1-10): 7 Allergies ketorolac tromethamine (From Toradol) Allergy (Verified 07/19/24 15:31) Shortness of breath pollen extracts Allergy (Verified 07/19/24 15:31) Unknown Sulfa (Sulfonamide Antibiotics) Allergy (Verified 07/19/24 15:31) Swelling tolmetin sodium (From Tolectin) Allergy (Verified 07/19/24 15:31) Hives tetracycline (Tetracycline) Adverse Reaction (Verified 07/19/24 15:31) Other Medications ???Medication ???Instructions ???Recorded ???Confirmed ???Type multivitamin with folic acid 400 1 tab PO DAILY 01/01/14 07/19/24 H istory mcg tablet methylphenidate HCl 20 mg tablet 20 mg PO BID 11/05/20 07/19/24 His tory (Ritalin) prasterone (dhea) 25 mg capsule 25 mg PO DAILY 11/05/20 07/19/24 H istory aspirin 81 mg capsule 81 mg PO DAILY #30 caps 11/10/20 0 07/19/24 Rx tadalafil 20 mg tablet 20 mg PO DAILY PRN 12/04/20 History omeprazole 40 mg capsule,delayed 40 mg PO DAILY gerd 12/08/2107/19 History release folic acid 1 mg tablet 2 mg PO DAILY 02/21/23 07/19/24 Hi story methotrexate sodium 2.5 mg tablet 12.5 mg PO QWEEK 02/21/23 5 History prednisone 10 mg tablet 10 mg PO DAILY PRN 02/21/23 History oxycodone-acetaminophe n 7.5 mg-325 1 tab PO TID PRN 03/24/23 History mg tablet rosuvastatin 40 mg tablet 40 mg PO DAILY 03/24/23 07/19/24 H istory metoprolol succinate 25 mg 25 mg PO DAILY #90 tabs 02/28/24 0 07/19/24 Rx tablet,extended release 24 hr duloxetine 60 mg capsule,delayed 60 mg PO QDAY 03/21/24 07/19/24 Hi story release lisinopril 5 mg tablet 5 mg PO DAILY #90 ta (more content not included)... Normal [facility] Platelet countOrdered By: Linnea Nava on 07-19-2024 Platelets (Bld) [#/Vol] 185 10*3/uL 150-450 [facility] Potassium measurement (mass/ volume)Ordered By: Reginaldo Nava on 07-19-2024 Potassium (Unsp spec) [Mass/Vol] 3.9 mmol/L 3.3-5.1 [facility] RBC Auto (Bld) [#/Vol]Ordere d By: Reginaldo Nava on 07-19-2024 RBC (Bld) [#/Vol] 3.74 10*6/uL Low 4.6-6.2 [facility] Serum creatinine measurement (mass/volume)Ordered By: Reginaldo Nava on 07-19-2024 Creatinine [Mass/Vol] 1.26 mg/dL High 0.70-1.20 [facility] Serum globulin measurementOr dered By: Reginaldo Nava on 07-19-2024 Globulin (S) [Mass/Vol] 2.2 g/dL 2.2-4.2 [facility] Serum glucose measurement (m ass/volume)Ordered By: Reginaldo Nava on 07-19-2024 Glucose [Mass/Vol] 156 mg/dL High 70-99 [facility] Serum or plasma alanine cowan otransferase (ALT) measurementOrdered By: Reginaldo Nava on 07-19-2024 ALT [Catalytic activity/Vol] 29 U/L <47 [facility] Serum or plasma albumin ioana urement (mass/volume)Ordered By: Reginaldo Nava on 07-19-2024 Albumin [Mass/Vol] 4.1 g/dL 3.4-4.8 [facility] Serum or plasma albumin/glob ulin mass ratioOrdered By: Reginaldo Nava on 07-19-2024 Albumin/Globulin [Mass ratio] 1.8 {ratio} 0.9-2.4 [facility] Serum or plasma alkaline abdirizak sphatase measurementOrdered By: Reginaldo Nava on 07-19-2024 ALP [Catalytic activity/Vol] 61 U/L 40-129 [facility] Serum or plasma calcium ioana urement (mass/volume)Ordered By: Reginaldo Nava on 07-19-2024 Calcium [Mass/Vol] 9.3 mg/dL 7.6-11.0 [facility] Serum or plasma urea nitroge n measurement (mass/volume)Ordered By: Reginaldo Nava on 07-19-2024 Urea nitrogen [Mass/Vol] 14 mg/dL 4-19 [facility] Sodium levelOrdered By: Jacques Nava on 07-19-2024 Sodium [Moles/Vol] 138 mmol/L 133-145 [facility] Total proteinOrdered By: Jose Nava on 07-19-2024 Protein [Mass/Vol] 6.3 g/dL 5.9-8.4 [facility] White blood cell (WBC) count Ordered By: Reginaldo Nava on 07-19-2024 WBC (Bld) [#/Vol] 4.0 10*3/uL Low 4.4-11.0 [facility] Absolute lymphocyte countOrd ered By: Holly Arzola on 07-05-2024 Lymphocytes Auto (Unsp spec) [#/Vol] 1.62 10*3/uL 0.83-4.51 [facility] Absolute neutrophil countOrd ered By: Holly Arzola on 07-05-2024 Neutrophils (Bld) [#/Vol] 4.5 10*3/uL 2.0-7.7 [facility] Anion gap in Serum or Plasma Ordered By: Holly Arzola on 07-05-2024 Anion gap [Moles/Vol] 10 mmol/L 5-15 [facility] Automated lymphocyte count a s percentage of total leukocytesOrdered By: Holly Arzola on 07-05-2024 Lymphocytes/100 WBC Auto (Unsp spec) 24.3 % 19-41 [facility] BUN/creatinine ratioOrdered By: Holly Arzola on 07-05-2024 Urea nitrogen/Creatinine [Mass ratio] 11.9 mg/mg 10-20 [facility] Basophil percentageOrdered B y: Holly Arzola on 07-05-2024 Basophils/100 WBC (Bld) 0.4 % 0-1 [facility] Bilirubin, totalOrdered By: Holly Arzola on 07-05-2024 Bilirubin [Mass/Vol] 0.48 mg/dL 0.00-1.[address] [facility] CBC W/Diff, Automatedon 04-2 -2024 Absolute Lymph 1.62 X10 3/uL Normal 0.83-4.51 [facility] Comment on above: Performed By: #### L 500.4050, L300.3900, L100.0100, L300.4310, L3130.0010, L504.2610, L300.4700, L3100.3425 #### [facility] Laboratory [address] [place], [address] Absolute Neut 4.5 X10 3/uL Normal 2.0-7.7 [facility] Comment on above: Performed By: #### L 500.4050, L300.3900, L100.0100, L300.4310, L3130.0010, L504.2610, L300.4700, L3100.3425 #### [facility] [address] [place], [address] Basophils/100 WBC (Bld) 0.4 % Normal 0-1 [facility] Comment on above: Performed By: #### L 500.4050, L300.3900, L100.0100, L300.4310, L3130.0010, L504.2610, L300.4700, L3100.3425 #### [facility] [address] [place], [address] Eosinophils/100 WBC (Bld) 0.9 % Normal 0-5 [facility] Comment on above: Performed By: #### L 500.4050, L300.3900, L100.0100, L300.4310, L3130.0010, L504.2610, L300.4700, L3100.3425 #### [facility] [address] [place], [address] Erythrocyte distribution width (RBC) [Ratio] 13.6 % Normal 11.6-14.6 [facility] Comment on above: Performed By: #### L 500.4050, L300.3900, L100.0100, L300.4310, L3130.0010, L504.2610, L300.4700, L3100.3425 #### [facility] [address] [place], [address] ([phone]) Hematocrit (Bld) [Volume fraction] 35.6 % Low 40-54 [facility] Comment on above: Performed By: #### L 500.4050, L300.3900, L100.0100, L300.4310, L3130.0010, L504.2610, L300.4700, L3100.3425 #### [facility] [address] [place], [address] ([phone] Hemoglobin (Bld) [Mass/Vol] 12.3 g/dL Low 13.0-16.5 [facility] Comment on above: Performed By: #### L 500.4050, L300.3900, L100.0100, L300.4310, L3130.0010, L504.2610, L300.4700, L3100.3425 #### [facility] [address] [place], [address] (371 IG% 0.300 Normal 0.0-0.9 [facility] Comment on above: Result Comment: IG% - Immature Granulocytes (promyelocytes, myelocytes and metamyelocytes) > 1% indicates that a LEFT SHIFT is Present. Performed By: #### L 500.4050, L300.3900, L100.0100, L300.4310, L3130.0010, L504.2610, L300.4700, L3100.3425 #### [facility] [address] [place], [address] (447 Lymphocytes/100 WBC (Bld) 24.3 % Normal 19-41 [facility] Comment on above: Performed By: #### L 500.4050, L300.3900, L100.0100, L300.4310, L3130.0010, L504.2610, L300.4700, L3100.3425 #### [facility] [address] [place], [address] MCH (RBC) [Entitic mass] 30.8 pg Normal 27.0-32.0 [facility] Comment on above: Performed By: #### L 500.4050, L300.3900, L100.0100, L300.4310, L3130.0010, L504.2610, L300.4700, L3100.3425 #### [facility] [address] [place], [address] MCHC (RBC) [Mass/Vol] 34.6 g/dL Normal 32-36 [facility] Comment on above: Performed By: #### L 500.4050, L300.3900, L100.0100, L300.4310, L3130.0010, L504.2610, L300.4700, L3100.3425 #### [facility] [address] [place], [address] MCV (RBC) [Entitic vol] 89.2 fL Normal 80-94 [facility] Comment on above: Performed By: #### L 500.4050, L300.3900, L100.0100, L300.4310, L3130.0010, L504.2610, L300.4700, L3100.3425 #### [facility] [address] [place], [address] Monocytes/100 WBC (Bld) 7.2 % Normal 0-10 [facility] Comment on above: Performed By: #### L 500.4050, L300.3900, L100.0100, L300.4310, L3130.0010, L504.2610, L300.4700, L3100.3425 #### [facility] [address] [place], [address] Neutrophils/100 WBC (Bld) 66.9 % Normal 47-70 [facility] Comment on above: Performed By: #### L 500.4050, L300.3900, L100.0100, L300.4310, L3130.0010, L504.2610, L300.4700, L3100.3425 #### [facility] [address] [place], [address] Nucleated RBC (Bld) [#/Vol] 0 10*3/uL Normal 0-5 [facility] Comment on above: Performed By: #### L 500.4050, L300.3900, L100.0100, L300.4310, L3130.0010, L504.2610, L300.4700, L3100.3425 #### [facility] [address] [place], [address] Platelet mean volume (Bld) [Entitic vol] 9.9 fL Normal 6.2-12.0 [facility] Comment on above: Performed By: #### L 500.4050, L300.3900, L100.0100, L300.4310, L3130.0010, L504.2610, L300.4700, L3100.3425 #### [facility] [address] [place], [address] Platelets (Bld) [#/Vol] 199 10*3/uL Normal 150-450 [facility] Comment on above: Performed By: #### L 500.4050, L300.3900, L100.0100, L300.4310, L3130.0010, L504.2610, L300.4700, L3100.3425 #### [facility] [address] [place], [address] RBC (Bld) [#/Vol] 3.99 10*6/uL Low 4.6-6.2 [facility] Comment on above: Performed By: #### L 500.4050, L300.3900, L100.0100, L300.4310, L3130.0010, L504.2610, L300.4700, L3100.3425 #### [facility] [address] [place], [address] RDW SD 44.4 fl High 35.1-43.9 [facility] Comment on above: Performed By: #### L 500.4050, L300.3900, L100.0100, L300.4310, L3130.0010, L504.2610, L300.4700, L3100.3425 #### [facility] [address] [place], [address] WBC (Bld) [#/Vol] 6.7 10*3/uL Normal 4.4-11.0 [facility] Comment on above: Performed By: #### L 500.4050, L300.3900, L100.0100, L300.4310, L3130.0010, L504.2610, L300.4700, L3100.3425 #### [facility] [address] [place], [address] Carbon dioxide, total [Moles /volume] in Central venous bloodOrdered By: Holly Arzola on 07-05-2024 CO2 [Moles/Vol] 25.9 mmol/L 21.0-32.0 [facility] Chloride assayOrdered By: Bipin Arzola on 07-05-2024 Chloride [Moles/Vol] 103 mmol/L 98-[address] [facility] Comprehensive Metabolic Prof ilon 07-05-2024 Albumin [Mass/Vol] 4.3 g/dL Normal 3.4-4.8 [facility] Comment on above: Order Comment: PLEAS E FAX RESULTS FOR CMP,TEST,AND PSA TO [phone] [facility]. DARIUSZ GETS RESULTS FOR CMP AND CBCD [phone] Performed By: #### L 500.4050, L300.3900, L100.0100, L300.4310, L3130.0010, L504.2610, L300.4700, L3100.3425 #### [facility] [address] [place], [place], [id number] Albumin/Globulin [Mass ratio] 2.0 {ratio} Normal 0.9-2.4 [facility] Comment on above: Order Comment: PLEAS E FAX RESULTS FOR CMP,TEST,AND PSA TO [address] [place], [place] [address]DR. DARIUSZ GETS RESULTS FOR CMP AND CBCD [phone] Performed By: #### L 500.4050, L300.3900, L100.0100, L300.4310, L3130.0010, L504.2610, L300.4700, L3100.3425 #### [facility] [address] [place], [address] ALK PHOS 51 U/L Normal 40-129 [facility] Comment on above: Order Comment: PLEAS E FAX RESULTS FOR CMP,TEST,AND PSA TO [address] [place], [place] [address]DR. DARIUSZ GETS RESULTS FOR CMP AND CBCD [phone] Performed By: #### L 500.4050, L300.3900, L100.0100, L300.4310, L3130.0010, L504.2610, L300.4700, L3100.3425 #### [facility] [address] [place], [place], [address] ALT [Catalytic activity/Vol] 33 U/L Normal <=46 [facility] Comment on above: Order Comment: PLEAS E FAX RESULTS FOR CMP,TEST,AND PSA TO [address] [place], [place] [address]DR. DARIUSZ GETS RESULTS FOR CMP AND CBCD [phone] Performed By: #### L 500.4050, L300.3900, L100.0100, L300.4310, L3130.0010, L504.2610, L300.4700, L3100.3425 #### [facility] [address] [place], [place], [address] AST [Catalytic activity/Vol] 35 U/L Normal <=37 [facility] Comment on above: Order Comment: PLEAS E FAX RESULTS FOR CMP,TEST,AND PSA TO [address] [place] [address]. DARIUSZ GETS RESULTS FOR CMP AND CBCD [phone] Performed By: #### L 500.4050, L300.3900, L100.0100, L300.4310, L3130.0010, L504.2610, L300.4700, L3100.3425 #### [facility] [address] [place], [place], [id number] [phone] Bilirubin [Mass/Vol] 0.48 mg/dL Normal 0.00-1.[address] [facility] Comment on above: Order Comment: PLEAS E FAX RESULTS FOR CMP,TEST,AND PSA TO [address] [place] [address]. DARIUSZ GETS RESULTS FOR CMP AND CBCD [phone] Performed By: #### L 500.4050, L300.3900, L100.0100, L300.4310, L3130.0010, L504.2610, L300.4700, L3100.3425 #### [facility] [address] [place], [place], [id number] [phone] BUN/CRE 11.9 RATIO Normal 10-20 [facility] Comment on above: Order Comment: PLEAS E FAX RESULTS FOR CMP,TEST,AND PSA TO [address] [place] [address]. DARIUSZ GETS RESULTS FOR CMP AND CBCD [phone] Performed By: #### L 500.4050, L300.3900, L100.0100, L300.4310, L3130.0010, L504.2610, L300.4700, L3100.3425 #### [facility] [address] [place], [address] Calcium [Mass/Vol] 9.4 mg/dL Normal 7.6-11.0 [facility] Comment on above: Order Comment: PLEAS E FAX RESULTS FOR CMP,TEST,AND PSA TO [address] [place] [address]. DARIUSZ GETS RESULTS FOR CMP AND CBCD [phone] Performed By: #### L 500.4050, L300.3900, L100.0100, L300.4310, L3130.0010, L504.2610, L300.4700, L3100.3425 #### [facility] [address] [place], [address] Chloride [Moles/Vol] 103 mmol/L Normal 98-[address] [facility] Comment on above: Order Comment: PLEAS E FAX RESULTS FOR CMP,TEST,AND PSA TO [address] [place] [address]. DARIUSZ GETS RESULTS FOR CMP AND CBCD [phone] Performed By: #### L 500.4050, L300.3900, L100.0100, L300.4310, L3130.0010, L504.2610, L300.4700, L3100.3425 #### [facility] [address] [place], [address] CO2 [Moles/Vol] 25.9 mmol/L Normal 21.0-32.0 [facility] Comment on above: Order Comment: PLEAS E FAX RESULTS FOR CMP,TEST,AND PSA TO [address] [place] [address]. DARIUSZ GETS RESULTS FOR CMP AND CBCD [phone] Performed By: #### L 500.4050, L300.3900, L100.0100, L300.4310, L3130.0010, L504.2610, L300.4700, L3100.3425 #### [facility] [address] [place], [address] Creatinine [Mass/Vol] 1.32 mg/dL High 0.70-1.20 [facility] Comment on above: Order Comment: PLEAS E FAX RESULTS FOR CMP,TEST,AND PSA TO [phone] [facility]. DARIUSZ GETS RESULTS FOR CMP AND CBCD [phone] Performed By: #### L 500.4050, L300.3900, L100.0100, L300.4310, L3130.0010, L504.2610, L300.4700, L3100.3425 #### [facility] [address] [place], [address] GAP 10 Normal 5-15 [facility] Comment on above: Order Comment: PLEAS E FAX RESULTS FOR CMP,TEST,AND PSA TO [address] [place], [place] [address]DR. DARIUSZ GETS RESULTS FOR CMP AND CBCD [phone] Performed By: #### L 500.4050, L300.3900, L100.0100, L300.4310, L3130.0010, L504.2610, L300.4700, L3100.3425 #### [facility] [address] [place], [address] GFR/1.73 sq M.predicted among non-blacks MDRD (S/P/Bld) [Vol rate/Area] 58 mL/min/{1.73_m2} Low >60 [facility] Comment on above: Order Comment: PLEAS E FAX RESULTS FOR CMP,TEST,AND PSA TO [phone] [place], [place] [address]DR. DARIUSZ GETS RESULTS FOR CMP AND CBCD [phone] Result Comment: mL/m in/1.73m2 CKD-EPI Creatinine Equation (2020) Performed By: #### L 500.4050, L300.3900, L100.0100, L300.4310, L3130.0010, L504.2610, L300.4700, L3100.3425 #### [facility] [address] [place], [address] Globulin (S) [Mass/Vol] 2.2 g/dL Normal 2.2-4.2 [facility] Comment on above: Order Comment: PLEAS E FAX RESULTS FOR CMP,TEST,AND PSA TO [address] [place] [address]. DARIUSZ GETS RESULTS FOR CMP AND CBCD [phone] Performed By: #### L 500.4050, L300.3900, L100.0100, L300.4310, L3130.0010, L504.2610, L300.4700, L3100.3425 #### [facility] [address] [place], [address] Glucose [Mass/Vol] 117 mg/dL High 70-99 [facility] Comment on above: Order Comment: PLEAS E FAX RESULTS FOR CMP,TEST,AND PSA TO [address] [place] [address]. DARIUSZ GETS RESULTS FOR CMP AND CBCD [phone] Performed By: #### L 500.4050, L300.3900, L100.0100, L300.4310, L3130.0010, L504.2610, L300.4700, L3100.3425 #### [facility] [address] [place], [address] Potassium [Moles/Vol] 4.3 mmol/L Normal 3.3-5.1 [facility] Comment on above: Order Comment: PLEAS E FAX RESULTS FOR CMP,TEST,AND PSA TO [address] [place] [address]. DARIUSZ GETS RESULTS FOR CMP AND CBCD [phone] Performed By: #### L 500.4050, L300.3900, L100.0100, L300.4310, L3130.0010, L504.2610, L300.4700, L3100.3425 #### [facility] [address] [place], [address] Sodium [Moles/Vol] 139 mmol/L Normal 133-145 [facility] Comment on above: Order Comment: PLEAS E FAX RESULTS FOR CMP,TEST,AND PSA TO [address] [place], [place] [address]DR. DARIUSZ GETS RESULTS FOR CMP AND CBCD [phone] Performed By: #### L 500.4050, L300.3900, L100.0100, L300.4310, L3130.0010, L504.2610, L300.4700, L3100.3425 #### [facility] [address] [place], [address] T PROT 6.5 g/dL Normal 5.9-8.4 [facility] Comment on above: Order Comment: PLEAS E FAX RESULTS FOR CMP,TEST,AND PSA TO [address] [place], [place] [address]DR. DARIUSZ GETS RESULTS FOR CMP AND CBCD [phone] Performed By: #### L 500.4050, L300.3900, L100.0100, L300.4310, L3130.0010, L504.2610, L300.4700, L3100.3425 #### [facility] [address] [place], [address] Urea nitrogen [Mass/Vol] 16 mg/dL Normal 4-19 [facility] Comment on above: Order Comment: PLEAS E FAX RESULTS FOR CMP,TEST,AND PSA TO [address] [place], [place] [address]DR. DARIUSZ GETS RESULTS FOR CMP AND CBCD [phone] Performed By: #### L 500.4050, L300.3900, L100.0100, L300.4310, L3130.0010, L504.2610, L300.4700, L3100.3425 #### [facility] [address] [place], [address] Eosinophil percentageOrdered By: Holly Arzola on 07-05-2024 Eosinophils/100 WBC (Bld) 0.9 % 0-5 [facility] Erythrocyte distribution wid th ratioOrdered By: Holly Arzola on 07-05-2024 Erythrocyte distribution width (RBC) [Ratio] 13.6 % 11.6-14.6 [facility] Erythrocyte distribution wid th standard deviationOrdered By: Holly Arzola on 07-05-2024 Erythrocyte distribution width (RBC) [Ratio] 44.4 fl High 35.1-43.9 [facility] Free testosterone percentage Ordered By: Holly Arzola on 07-05-2024 Testosterone Free/Testosterone.total [Mass fraction] Not Reportable [facility] Glomerular filtration rate ( GFR) estimation/1.73 sq m using serum, plasma, or whole bOrdered By: Holly Arzola on 07-05-2024 GFR/1.73 sq M.predicted among non-blacks MDRD (S/P/Bld) [Vol rate/Area] 58 mL/min/{1.73_m2} Low >60 [facility] Comment on above: mL/min/1.73m2 CKD-EP I Creatinine Equation (2020) Hematocrit Auto (Bld) [Volum e fraction]Ordered By: Holly Arzola on 07-05-2024 Hematocrit (Bld) [Volume fraction] 35.6 % Low 40-54 [facility] Hemoglobin measurementOrdere d By: Holly Arzola on 07-05-2024 Hemoglobin (Bld) [Mass/Vol] 12.3 g/dL Low 13.0-16.5 [facility] Immature granulocytes/100 WB C Auto (Bld)Ordered By: Holly Arzola 07-05-2024 Immature granulocytes/100 WBC (Bld) 0.300 % 0.0-0.9 [facility] Comment on above: IG% - Immature Granu locytes (promyelocytes, myelocytes and metamyelocytes) > 1% indicates that a LEFT SHIFT is Present. Laboratory - Chemistry and C hemistry - challengeOrdered By: Holly Arzola on 07-05-2024 AST [Catalytic activity/Vol] 35 U/L <38 [facility] MCV (mean corpuscular volume ) determinationOrdered By: Holly Arzola on 07-05-2024 MCV (RBC) [Entitic vol] 89.2 fL 80-94 [facility] Mean corpuscular hemoglobin (MCH) determinationOrdered By: Holly Arzola on 07-05-2024 MCH (RBC) [Entitic mass] 30.8 pg 27.0-32.0 [facility] Mean corpuscular hemoglobin concentration (MCHC) determinationOrdered By: Holly Arzola on 07-05-2024 MCHC (RBC) [Mass/Vol] 34.6 g/dL 32-36 [facility] Mean platelet volume determi nationOrdered By: Holly Arzola on 07-05-2024 Platelet mean volume (Bld) [Entitic vol] 9.9 fL 6.2-12.0 [facility] Monocyte percentageOrdered B y: Holly Arzola on 07-05-2024 Monocytes/100 WBC (Bld) 7.2 % 0-10 [facility] Neutrophil percentageOrdered By: Holly Arzola on 07-05-2024 Neutrophils/100 WBC (Bld) 66.9 % 47-70 [facility] Nucleated red blood cell per centageOrdered By: Holly Arzola on 07-05-2024 Nucleated RBC/100 WBC (Bld) [Ratio] 0 % 0-5 [facility] Platelet countOrdered By: Bipin Arzola on 07-05-2024 Platelets (Bld) [#/Vol] 199 10*3/uL 150-450 [facility] Potassium measurement (mass/ volume)Ordered By: Holly Arzola on 07-05-2024 Potassium (Unsp spec) [Mass/Vol] 4.3 mmol/L 3.3-5.1 [facility] RBC Auto (Bld) [#/Vol]Ordere d By: Holly Arzola on 07-05-2024 RBC (Bld) [#/Vol] 3.99 10*6/uL Low 4.6-6.2 [facility] Serum creatinine measurement (mass/volume)Ordered By: Holly Arzola on 07-05-2024 Creatinine [Mass/Vol] 1.32 mg/dL High 0.70-1.20 [facility] Serum globulin measurementOr dered By: Holly Arzola on 07-05-2024 Globulin (S) [Mass/Vol] 2.2 g/dL 2.2-4.2 [facility] Serum glucose measurement (m ass/volume)Ordered By: Holly Arzola on 07-05-2024 Glucose [Mass/Vol] 117 mg/dL High 70-99 [facility] Serum or plasma alanine cowan otransferase (ALT) measurementOrdered By: Holly Arzola on 07-05-2024 ALT [Catalytic activity/Vol] 33 U/L <47 [facility] Serum or plasma albumin ioana urement (mass/volume)Ordered By: Holly Arzola on 07-05-2024 Albumin [Mass/Vol] 4.3 g/dL 3.4-4.8 [facility] Serum or plasma albumin/glob ulin mass ratioOrdered By: Holly Arzola on 07-05-2024 Albumin/Globulin [Mass ratio] 2.0 {ratio} 0.9-2.4 [facility] Serum or plasma alkaline abdirizak sphatase measurementOrdered By: Holly Arzola on 07-05-2024 ALP [Catalytic activity/Vol] 51 U/L 40-129 [facility] Serum or plasma calcium ioana urement (mass/volume)Ordered By: Holly Arzola on 07-05-2024 Calcium [Mass/Vol] 9.4 mg/dL 7.6-11.0 [facility] Serum or plasma free prostat e specific antigen (PSA)/total PSA mass ratioOrdered By: Holly Arzola on 07-05-2024 Free PSA/Total PSA [Mass fraction] Not Reportable [facility] Serum or plasma free testost erone measurement (mass/volume)Ordered By: Holly Arzola on 07-05-2024 Testosterone Free [Mass/Vol] Not Reportable [facility] Serum or plasma urea nitroge n measurement (mass/volume)Ordered By: Holly Arzola on 07-05-2024 Urea nitrogen [Mass/Vol] 16 mg/dL 4-19 [facility] Sodium levelOrdered By: Riki Arzola on 07-05-2024 Sodium [Moles/Vol] 139 mmol/L 133-145 [facility] Testosterone, totalOrdered B y: Holly Arzola on 07-05-2024 Testosterone, total See comment [facility] Comment on above: TEST RESULTS LIMITST estosterone, Free/Tot Equilib Testosterone 624 ng/dL 264-916 Adult male reference interval is based on a population of healthy nonobese males (BMI <30) between 19 and 39 years old. Aniceto et.al. JCEM 2017,102;2241-2305. PMID: 82930364. Testosterone,Free 20.84 ng/dL 5.00-21.00 % Free Testosterone 3.34 % 1.50-4.20 TESTING PERFORMED AT [facility]. ORIGINAL REPORT ON FILE IN LAB CONTAINS ADDITIONAL TEST SITE INFORMATION. Total proteinOrdered By: Gillian Arzola on 07-05-2024 Protein [Mass/Vol] 6.5 g/dL 5.9-8.4 [facility] White blood cell (WBC) count Ordered By: Holly Arzola on 07-05-2024 WBC (Bld) [#/Vol] 6.7 10*3/uL 4.4-11.0 [facility] Orthopedic Visit Reporton Orthopedic Visit Report [facility] [address] [place] [id number] OFFICE VISIT Date of Service: 07/02/24 MR#: [id number] Acct: [id number] Name: VAUGHN DINERO Rep #: [id number] : 1955 Provider: Dr. Reginaldo marie DO Age/Sex: 69/M Location: [facility] [place] Status: Signed Intake Vital Signs 04/26/24 15:54 Height 5 ft 6 in Weight: 163 lb BMI 26.3 BP 134/68 H Blood Pressure Location Lt brachial Position Sitting Respiration 16 Pulse 72 Pulse Source Monitor Temp 97.8 F Pulse Oximetry (%) 99 Oxygen Delivery Method room air Intake Visit Reasons: RIGHT KNEE Allergies ketorolac tromethamine (From Toradol) Allergy (Verified 04/26/24 15:56) Shortness of breath pollen extracts Allergy (Verified 04/26/24 15:56) Unknown Sulfa (Sulfonamide Antibiotics) Allergy (Verified 04/26/24 15:56) Swelling tolmetin sodium (From Tolectin) Allergy (Verified 04/26/24 15:56) Hives tetracycline (Tetracycline) Adverse Reaction (Verified 04/26/24 15:56) Other Have you fallen in the past year?: No PFSH Medical History Ischemic cardiomyopathy Tear of right rotator cuff Elevated serum creatinine Anemia Foraminal stenosis of cervical region Rotator cuff tendonitis Inflammation of joint of right shoulder region Right shoulder pain Tear of medial meniscus of left knee Effusion of knee joint right Essential hypertension Anterior myocardial infarction (11/09/20) Atherosclerotic heart disease of [place] coronary artery without angina pectoris ADHD Mechanical pain of left knee Bunion of great toe of right foot Hammer toe of right foot GERD (gastroesophageal reflux disease) 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 Back problem Arthritis Osteoarthritis, multiple sites Surgical History History of right shoulder replacement Previous back surgery History of lumbar spinal fusion History of surgery on left wrist ( 04/2021) History of fusion of cervical spine History of total right knee replacement History of coronary artery stent placement (11/09/20) History of knee surgery Status post reverse total shoulder replacement S/P hernia repair s/p feet s/p hands s/p forearms s/p elbows s/p shoulders s/p neck Family History Mother Lung cancer Father Cancer bladder Depression Emphysema lung Sister Pacemaker Social History household members: spouse Smoking Status: Former smoker alcohol intake: never substance use type: does not use what type of physical activity do you participate in: walking HPI RIGHT KNEE Details: This documentation accurately reflects the service provided and the decisions made by me, Dr. Reginaldo Blank, DO 07/02/24 0733. Part of today???s visit was documented by Leann MELISSA, acting as scribe. VAUGHN DINERO is a 69 year old M here today for continued right knee distal IT band pain. he states that PT was helpful but a week after discontinuing his pain returned. He did not do the iontophoresis because his insurance wouldn't cover it and he would have to pay out of pocket. He states that his pain is anterior lateral. He does have trouble sleeping and laying on his right side due to the knee pain. The knee that within a week after completing PT is when he started having pain again. Ortho Exam General General: Yes no acute distress and Yes well groomed Neurologic: Yes alert and Yes oriented x3 Psychologic: Yes reasonable and appropriate Left Wrist/Hand WRIST: hypertrophy of PIP and DIP good capillary refill Right Knee Skin/Wound: No erythema, No ecchymosis and No swelling Homans Sign: No Knee ROM: Yes ROM-Extension -20 to 0 Examination: No Med jt line tenderness, No Lat jt line tenderness and No Crepitus Stability: NML: Valgus 0, NML: Valgus 30, NML: Varus 0 and NML: Varus 30 KNEE: no effusion no pre patellar bursitis Most tender over Aletha's tubercle and distal IT Office Procedures Ortho Injections Injections Is this a patient provided medication?: No Details: Obtained consent for injection. Under sterile conditions, injected the patients right distal IT band with 1cc bupivacaine 1cc depo medrol. The patient tolerated the injection well without any noted complication. Patient should call our office if redness develops, pain worsens or if they have any concerns. Office Meds Depo-Medrol 40 mg/mL suspension for injection Performing Provider: Reginaldo Blank DO Performing Location: [facility] Administered by: Reginaldo Blank DO on 07/02/24 08:43 Dose Route Admin Location Dispensed Lot Number Expiration Date [facility] (more content not included)... Normal [facility] PT D/C Summary (1)on 025 PT D/C Summary (1) [facility] Physical Therapy [facility] [address] [place] [address]. [address] [place] [address] / REHABILITATION SERVICES DISCHARGE SUMMARY MR#: [id number] Acct: [id number] Name: VAUGHN DINERO Rep #: [id number] : 1955 69 From: Cam Santillan PT, ATC Referring Dr.: Dr. Reginaldo Blank DO Status: R EG RCR Insurance: MEDICARE PART A B [employer] SR SUPPLEMENT INS Discharge Summary D/C summary: It has been my pleasure to treat VAUGHN DINERO referred by Dr. Reginaldo Blank DO, with the diagnosis of R IT band syndrome for a total of 12 visit(s). Discharge Date: Please see the following information for a summary of their discharge status. Subjective Subjective: Pt reports he is in more pain than the last time he saw me. Pt reports this is a whole different pain that causes his knee to swell Pain R IT band: Pain Intensity (Out of 10): 4 Overall Improvement % Improvement: 45 Objective Objective/Function: R knee pain ranges from 5-7/10. Now having difficulty sleeping at night. Pt reports he is able to drive for 10 min without increased pain. Pt is I with HEP Pt has experienced a regression with pain over the past few weeks for unknown reasons. Goals Goal 1:: Decrease R knee pain x 50% to aid with sleep Goal Progress: Progressing Goal 2:: Increase pt's tolerance for driving to greater than 10 min without experiencing increased R LE sx's Goal Progress: Goal Met Goal 3:: I with hep Goal Progress: Goal Met Plan Plan: Discontinue at this time. Consider RTD for swelling purposes D/C Information d/c sentence: If there are questions or concerns regarding this patient's physical therapy, please feel free to call me at [phone]. Thank you for the referral of this patient. Sincerely, Cam Santillan, PT, ATC Balance/Gait/Functiona l tests Balance/Special Test Scores Lower Extremity Functional Score: 75 Improvement % Improvement: 45 06/06/24 0759 CC: Dr. Reginaldo Blank DO; Dr. True Ibarra DO [facility] Signed Normal [facility] Oncology Visit Reporton 04-14 Oncology Visit Report [facility] [place] [address] OFFICE VISIT Date of Service: 04/26/24 1553 MR#: [id number] Acct: [id number] Name: VAUGHN DINERO Rep #: [id number] : 1955 From: Ilsa Paul Age/Sex: 69/M [place] [facility] [place]: Signed HPI Subjective Date of Service 04/26/24 Chief Complaint eyelid bruising History of Present Illness 69 y.o.man presented with Leukopenia/Neutropenia , had a bone marrow bx on 07/02/2014 which showed Normocellular bone marrow, Trilineage hematopoiesis with no significant pathologic change. IFX showed no monoclonal Gammopathy. He was found to have Iron deficiency and started Oral iron pills. He had spontaneous left eyelids bruise. Plavix was discontinued. Bruising resolved. He was on observation, had another spontaneous bruise of the R eyelid within a matter of 4 weeks Interval History The patient is presenting to clinic for a planned 2 week follow up to review coagulation studies and updated CBC. He specifically denies any episodes of overt bleeding or abnormal bruising since his last OV with Dr. nava. Further denies weight loss, enlarged lymph nodes, dysphagia, CP, palpitations, cough, SOB, abd pain, bone pain, changes in his bowel habits, swelling/pain of his extremities. Remains on Plaquinil and methotrexate per his geriatric nurse assistant. Takes as prescribed and adherent to use of folate. ASA 81 daily. No ETOH or NSAID use. No recent atb. [facility] Medical History Ischemic cardiomyopathy Tear of right rotator cuff Elevated serum creatinine Anemia Foraminal stenosis of cervical region Rotator cuff tendonitis Inflammation of joint of right shoulder region Right shoulder pain Tear of medial meniscus of left knee Effusion of knee joint right Essential hypertension Anterior myocardial infarction (11/09/20) Atherosclerotic heart disease of [place] coronary artery without angina pectoris ADHD Mechanical pain of left knee Bunion of great toe of right foot Hammer toe of right foot GERD (gastroesophageal reflux disease) 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 Back problem Arthritis Osteoarthritis, multiple sites Surgical History History of right shoulder replacement Previous back surgery History of lumbar spinal fusion History of surgery on left wrist ( 04/2021) History of fusion of cervical spine History of total right knee replacement History of coronary artery stent placement (11/09/20) History of knee surgery Status post reverse total shoulder replacement S/P hernia repair s/p feet s/p hands s/p forearms s/p elbows s/p shoulders s/p neck Family History Mother Lung cancer Father Cancer bladder Depression Emphysema lung Sister Pacemaker Social History household members: spouse Smoking Status: Former smoker alcohol intake: never substance use type: does not use what type of physical activity do you participate in: walking ROS ROS Narrative Negative except as documented in the interval HPI Intake Vital Signs 04/04/24 13:26 04/26/24 15:54 Height 5 ft 6 in 5 ft 6 in Weight: 163 lb BMI 26.3 BP 134/68 H Blood Pressure Location Lt brachial Position Sitting Respiration 16 Pulse 72 Pulse Source Monitor Temp 97.8 F Temperature Source Temporal Artery Pulse Oximetry (%) 99 Oxygen Delivery Method room air Intake Business Line Manager Required: No Accompanied by: Self Is patient in pain?: Yes (generalized joint) Pain scale (1-10): 2 Allergies ketorolac tromethamine (From Toradol) Allergy (Verified 04/26/24 15:56) Shortness of breath pollen extracts Allergy (Verified 04/26/24 15:56) Unknown Sulfa (Sulfonamide Antibiotics) Allergy (Verified 04/26/24 15:56) Swelling tolmetin sodium (From Tolectin) Allergy (Verified 04/26/24 15:56) Hives tetracycline (Tetracycline) Adverse Reaction (Verified 04/26/24 15:56) Other Medications ???Medication ???Instructions ???Recorded ???Confirmed ???Type multivitamin with folic acid 400 1 tab PO DAILY 01/01/14 04/26/24 H istory mcg tablet methylphenidate HCl 20 mg tablet 20 mg PO BID 11/05/20 04/26/24 His tory (Ritalin) prasterone (dhea) 25 mg capsule 25 mg PO DAILY 11/05/20 04/26/24 H istory aspirin 81 mg capsule 81 mg PO DAILY #30 caps 11/10/20 0 04/26/24 Rx tadalafil 20 mg tablet 20 mg PO DAILY PRN 12/04/20 History nitroglycerin 0.4 mg sublingual 0.4 mg sublingual Q5-15M PRN chest 12/08/21 04/26/24 Rx tablet (Nitrostat) pain #25 tabs omeprazole 40 mg capsule,delayed 40 mg PO DAILY gerd 12/08/2104/26 Hi (more content not included)... Normal [facility] PSA,Total - Annual Screenon 04-26-2024 PSA,TOT SCREEN 0.36 ng/mL Normal 0.00-4.00 [facility] Comment on above: Result Comment: This test was performed using the TPSA assay method for the [employer] chemistry system. Values obtained with different assay methods cannot be used interchangably. When changing PSA assays in the course of monitoring a patient, additional sequential testing should be carried out to confirm baseline values. Performed By: #### L 501.9910 ####[facility] [address] [place], [address] Screening prostate specific antigen (PSA) measurementOrdered By: Ilsa Santillan on 04-26-2024 Prostate Specific Antigen Screen 0.36 ng/mL 0.00-4.00 [facility] Comment on above: This test was perfor med using the TPSA assay method for the[employer] chemistry system. Values obtained with differentassay methods cannot be used interchangably.When changing PSA assays in the course of monitoring apatient, additional sequential testing should be carriedout to confirm baseline values. Absolute neutrophil countOrd ered By: Holly Arzola on 04-23-2024 Neutrophils (Bld) [#/Vol] 2.9 10*3/uL 2.0-7.7 [facility] Albumin to globulin ratioOrd ered By: Holly Arzola on 04-23-2024 Albumin/Globulin [Mass ratio] 1.4 {ratio} 0.9-2.4 [facility] Basophil percentageOrdered B y: Holly Arzola on 04-23-2024 Basophils/100 WBC (Bld) 0.9 % 0-1 [facility] Bilirubin, totalOrdered By: Holly Arzola on 04-23-2024 Bilirubin [Mass/Vol] 0.40 mg/dL 0.20-1.[address] [facility] Comment on above: For patients on eltr ombopag therapy, use of Dimension [place] TBIL is not recommended. Blood urea nitrogen (BUN)/cr eatinine ratioOrdered By: Holly Arzola on 04-23-2024 Urea nitrogen/Creatinine [Mass ratio] 9.8 mg/mg Low 10-20 [facility] CBC W/Diff, Automatedon 04-14 Absolute Lymph 0.88 X10 3/uL Normal 0.83-4.51 [facility] Comment on above: Performed By: #### L 100.0100, L500.4050 ####[facility] [address] [place], [address] Absolute Neut 2.9 X10 3/uL Normal 2.0-7.7 [facility] Comment on above: Performed By: #### L 100.0100, L500.4050 ####[facility] [address] [place], [address] Basophils/100 WBC (Bld) 0.9 % Normal 0-1 [facility] Comment on above: Performed By: #### L 100.0100, L500.4050 ####[facility] [address] [place], [address] Eosinophils/100 WBC (Bld) 2.1 % Normal 0-5 [facility] Comment on above: Performed By: #### L 100.0100, L500.4050 ####[facility] [address] [place], [address] Erythrocyte distribution width (RBC) [Ratio] 14.1 % Normal 11.6-14.6 [facility] Comment on above: Performed By: #### L 100.0100, L500.4050 ####[facility] [address] [place], [address] Hematocrit (Bld) [Volume fraction] 37.2 % Low 40-54 [facility] Comment on above: Performed By: #### L 100.0100, L500.4050 ####[facility] [address] [place], [address] Hemoglobin (Bld) [Mass/Vol] 12.4 g/dL Low 13.0-16.5 [facility] Comment on above: Performed By: #### L 100.0100, L500.4050 ####[facility] [address] [place], [address] IG% 0.200 Normal 0.0-0.9 [facility] Comment on above: Result Comment: IG% - Immature Granulocytes (promyelocytes, myelocytes and metamyelocytes) > 1% indicates that a LEFT SHIFT is Present. Performed By: #### L 100.0100, L500.4050 ####[facility] [address] [place], [address] Lymphocytes/100 WBC (Bld) 20.8 % Normal 19-41 [facility] Comment on above: Performed By: #### L 100.0100, L500.4050 ####[facility] [address] [place], [address] MCH (RBC) [Entitic mass] 30.2 pg Normal 27.0-32.0 [facility] Comment on above: Performed By: #### L 100.0100, L500.4050 ####[facility] [address] [place], [address] MCHC (RBC) [Mass/Vol] 33.3 g/dL Normal 32-36 [facility] Comment on above: Performed By: #### L 100.0100, L500.4050 ####[facility] [address] [place], [address] MCV (RBC) [Entitic vol] 90.7 fL Normal 80-94 [facility] Comment on above: Performed By: #### L 100.0100, L500.4050 ####[facility] [address] [place], [address] Monocytes/100 WBC (Bld) 8.5 % Normal 0-10 [facility] Comment on above: Performed By: #### L 100.0100, L500.4050 ####[facility] [address] [place], [address] Neutrophils/100 WBC (Bld) 67.5 % Normal 47-70 [facility] Comment on above: Performed By: #### L 100.0100, L500.4050 ####[facility] [address] [place], [address] Nucleated RBC (Bld) [#/Vol] 0 10*3/uL Normal 0-5 [facility] Comment on above: Performed By: #### L 100.0100, L500.4050 ####[facility] [address] [place], [address] Platelet mean volume (Bld) [Entitic vol] 10.1 fL Normal 6.2-12.0 [facility] Comment on above: Performed By: #### L 100.0100, L500.4050 ####[facility] [address] [place], [address] Platelets (Bld) [#/Vol] 173 10*3/uL Normal 150-450 [facility] Comment on above: Performed By: #### L 100.0100, L500.4050 ####[facility] [address] [place], [address] RBC (Bld) [#/Vol] 4.10 10*6/uL Low 4.6-6.2 [facility] Comment on above: Performed By: #### L 100.0100, L500.4050 ####[facility] [address] [place], [address] RDW SD 46.6 fl High 35.1-43.9 [facility] Comment on above: Performed By: #### L 100.0100, L500.4050 ####[facility] [address] [place], [address] WBC (Bld) [#/Vol] 4.2 10*3/uL Low 4.4-11.0 [facility] Comment on above: Performed By: #### L 100.0100, L500.4050 ####[facility] [address] [place], [address] Carbon dioxide measurementOr dered By: Holly Arzola on 04-23-2024 CO2 [Moles/Vol] 28.0 mmol/L 21.0-32.0 [facility] Chloride measurementOrdered By: Holly Arzola on 04-23-2024 Chloride [Moles/Vol] 106 mmol/L 98-[address] [facility] Comprehensive Metabolic Prof ilon 04-23-2024 Albumin [Mass/Vol] 3.8 g/dL Normal 3.2-5.0 [facility] [facility] Comment on above: Performed By: #### L 100.0100, L500.4050 ####[facility] [address] [place], [address] Albumin/Globulin [Mass ratio] 1.4 {ratio} Normal 0.9-2.4 [facility] Comment on above: Performed By: #### L 100.0100, L500.4050 ####[facility] [address] [place], [address] ALK P 54 U/L Normal 45-117 [facility] Comment on above: Performed By: #### L 100.0100, L500.4050 ####[facility] [address] [place], [address] ALT [Catalytic activity/Vol] 31 U/L Normal 16-61 [facility] Comment on above: Performed By: #### L 100.0100, L500.4050 ####[facility] [address] [place], [address] AST [Catalytic activity/Vol] 27 U/L Normal 15-37 [facility] Comment on above: Performed By: #### L 100.0100, L500.4050 ####[facility] [address] [place], [address] Bilirubin [Mass/Vol] 0.40 mg/dL Normal 0.20-1.[address] [facility] Comment on above: Result Comment: For patients on eltrombopag therapy, use of Dimension [place] TBIL is not recommended. Performed By: #### L 100.0100, L500.4050 ####[facility] [address] [place], [address] BUN/CRE 9.8 RATIO Low 10-20 [facility] Comment on above: Performed By: #### L 100.0100, L500.4050 ####[facility] [address] [place], [address] CA,Total 8.8 mg/dL Normal 8.5-10.1 [facility] Comment on above: Performed By: #### L 100.0100, L500.4050 ####[facility] [address] [place], [address] Chloride [Moles/Vol] 106 mmol/L Normal 98-[address] [facility] Comment on above: Performed By: #### L 100.0100, L500.4050 ####[facility] [address] [place], [address] CO2 [Moles/Vol] 28.0 mmol/L Normal 21.0-32.0 [facility] Comment on above: Performed By: #### L 100.0100, L500.4050 ####[facility] [address] [place], [address] Creatinine [Mass/Vol] 1.12 mg/dL Normal 0.70-1.30 [facility] Comment on above: Result Comment: The validity of the calculated GFR GFRAA in patients over 70 years has not been determined. Clinical correlation is essential. Performed By: #### L 100.0100, L500.4050 ####[facility] [address] [place], [address] EST GFR - AA 83 mL/min Normal >60 [facility] Comment on above: Result Comment: Afri can Qatari GFR Calc Performed By: #### L 100.0100, L500.4050 ####[facility] [address] [place], [address] GAP 4 Low 5-15 [facility] Comment on above: Performed By: #### L 100.0100, L500.4050 ####[facility] [address] [place], [address] GFR/1.73 sq M.predicted among non-blacks MDRD (S/P/Bld) [Vol rate/Area] 69 mL/min/{1.73_m2} Normal >60 [facility] Comment on above: Result Comment: Non- GFR Calc Performed By: #### L 100.0100, L500.4050 ####[facility] [address] [place], [address] Globulin (S) [Mass/Vol] 2.8 g/dL Normal 2.2-4.2 [facility] Comment on above: Performed By: #### L 100.0100, L500.4050 ####[facility] [address] [place], [address] Glucose [Mass/Vol] 99 mg/dL Normal 74-106 [facility] Comment on above: Performed By: #### L 100.0100, L500.4050 ####[facility] [address] [place], [address] Potassium [Moles/Vol] 4.3 mmol/L Normal 3.5-5.1 [facility] Comment on above: Performed By: #### L 100.0100, L500.4050 ####[facility] [address] [place], [address] Sodium [Moles/Vol] 138 mmol/L Normal 136-145 [facility] Comment on above: Performed By: #### L 100.0100, L500.4050 ####[facility] [address] [place], [address] T PROT 6.6 g/dL Normal 6.4-8.2 [facility] Comment on above: Performed By: #### L 100.0100, L500.4050 ####[facility] [address] [place], [address] Urea nitrogen [Mass/Vol] 11 mg/dL Normal 7-18 [facility] Comment on above: Performed By: #### L 100.0100, L500.4050 ####[facility] [address] [place], [address] Eosinophil percentageOrdered By: Holly Arzola on 04-23-2024 Eosinophils/100 WBC (Bld) 2.1 % 0-5 [facility] Erythrocyte distribution wid th ratioOrdered By: Holly Arzola on 04-23-2024 Erythrocyte distribution width (RBC) [Ratio] 14.1 % 11.6-14.6 [facility] Erythrocyte distribution wid th standard deviationOrdered By: Holly Arzola on 04-23-2024 Erythrocyte distribution width (RBC) [Entitic vol] 46.6 fL High 35.1-43.9 [facility] Estimated glomerular filtrat ion rate (GFR) AmericanOrdered By: Holly Arzola on 04-23-2024 Estimated GFR (MDRD) Amer 83 mL/min >60 [facility] Comment on above: GFR Calc Glomerular filtration rate ( GFR) estimationOrdered By: Holly Arzola on 04-23-2024 Estimated GFR (MDRD) Non-Af Amer 69 mL/min >60 [facility] Comment on above: Non- GFR Calc Glucose measurementOrdered B y: Holly Arzola on 04-23-2024 Glucose [Mass/Vol] 99 mg/dL 74-106 [facility] Hematocrit Auto (Bld) [Volum e fraction]Ordered By: Holly Arzola on 04-23-2024 Hematocrit (Bld) [Volume fraction] 37.2 % Low 40-54 [facility] Hemoglobin measurementOrdere d By: Holly Arzola on 04-23-2024 Hemoglobin (Bld) [Mass/Vol] 12.4 g/dL Low 13.0-16.5 [facility] Immature granulocytes/100 WB C Auto (Bld)Ordered By: Holly Arzola on 04-23-2024 Immature granulocytes/100 WBC (Bld) 0.200 % 0.0-0.9 [facility] Comment on above: IG% - Immature Granu locytes (promyelocytes, myelocytes and metamyelocytes) > 1% indicates that a LEFT SHIFT is Present. Laboratory - Chemistry and C hemistry - challengeOrdered By: Holly Arzola on 04-23-2024 AST [Catalytic activity/Vol] 27 U/L 15-37 [facility] Lymphocytes Auto (Unsp spec) [#/Vol]Ordered By: Holly Arzola on 04-23-2024 Lymphocytes (Bld) [#/Vol] 0.88 10*3/uL 0.83-4.51 [facility] Lymphocytes/100 WBC Auto (Un sp spec)Ordered By: Holly Arzola on 04-23-2024 Lymphocytes/100 WBC (Bld) 20.8 % 19-41 [facility] MCV (mean corpuscular volume ) determinationOrdered By: Holly Arzola on 04-23-2024 MCV (RBC) [Entitic vol] 90.7 fL 80-94 [facility] Mean corpuscular hemoglobin (MCH) determinationOrdered By: Holly Arzola on 04-23-2024 MCH (RBC) [Entitic mass] 30.2 pg 27.0-32.0 [facility] Mean corpuscular hemoglobin concentration (MCHC) determinationOrdered By: Holly Arzola on 04-23-2024 MCHC (RBC) [Mass/Vol] 33.3 g/dL 32-36 [facility] Mean platelet volume determi nationOrdered By: Holly Arzola on 04-23-2024 Platelet mean volume (Bld) [Entitic vol] 10.1 fL 6.2-12.0 [facility] Monocyte percentageOrdered B y: Holly Arzola on 04-23-2024 Monocytes/100 WBC (Bld) 8.5 % 0-10 [facility] Neutrophil percentageOrdered By: Holly Arzola on 04-23-2024 Neutrophils/100 WBC (Bld) 67.5 % 47-70 [facility] Nucleated red blood cell per centageOrdered By: Holly Arzola on 04-23-2024 Nucleated RBC/100 WBC (Bld) [Ratio] 0 % 0-5 [facility] Platelet countOrdered By: Bipin Arzola on 04-23-2024 Platelets (Bld) [#/Vol] 173 10*3/uL 150-450 [facility] Potassium measurementOrdered By: Holly Arzola on 04-23-2024 Potassium [Moles/Vol] 4.3 mmol/L 3.5-5.1 [facility] RBC Auto (Bld) [#/Vol]Ordere d By: Holly Arzola on 04-23-2024 RBC (Bld) [#/Vol] 4.10 10*6/uL Low 4.6-6.2 [facility] Serum anion gap measurementO rdered By: Holly Arzola on 04-23-2024 Anion gap [Moles/Vol] 4 mmol/L Low 5-15 [facility] Serum globulin measurementOr dered By: Holly Arzola on 04-23-2024 Globulin (S) [Mass/Vol] 2.8 g/dL 2.2-4.2 [facility] Serum or plasma alanine cowan otransferase (ALT) measurementOrdered By: Holly Arzola on 04-23-2024 ALT [Catalytic activity/Vol] 31 U/L 16-61 [facility] Serum or plasma albumin ioana urement (mass/volume)Ordered By: Holly Arzola on 04-23-2024 Albumin [Mass/Vol] 3.8 g/dL 3.2-5.0 [facility] Serum or plasma alkaline abdirizak sphatase measurementOrdered By: Holly Arzola on 04-23-2024 ALP [Catalytic activity/Vol] 54 U/L 45-117 [facility] Serum or plasma calcium ioana urement (mass/volume)Ordered By: Holly Arzola on 04-23-2024 Calcium [Mass/Vol] 8.8 mg/dL 8.5-10.1 [facility] Serum or plasma creatinine m easurement (mass/volume)Ordered By: Holly Arzola on 04-23-2024 Creatinine [Mass/Vol] 1.12 mg/dL 0.70-1.30 [facility] Comment on above: The validity of the calculated GFR & GFRAA in patients over 70 years has not been determined. Clinical correlation is essential. Serum or plasma urea nitroge n measurement (mass/volume)Ordered By: Holly Arzola on 04-23-2024 Urea nitrogen [Mass/Vol] 11 mg/dL 7-18 [facility] Sodium levelOrdered By: Riki Arzola on 04-23-2024 Sodium [Moles/Vol] 138 mmol/L 136-145 [facility] Total proteinOrdered By: Gillian Arzola on 04-23-2024 Protein [Mass/Vol] 6.6 g/dL 6.4-8.2 [facility] White blood cell (WBC) count Ordered By: Holly Arzola on 04-23-2024 WBC (Bld) [#/Vol] 4.2 10*3/uL Low 4.4-11.0 [facility] Orthopedic Visit Reporton Orthopedic Visit Report [facility] [address] [place] [id number] OFFICE VISIT Date of Service: 04/11/24 MR#: [id number] Acct: [id number] Name: VAUGHN DINERO Rep #: [id number] : 1955 Provider: Dr. Reginaldo marie DO Age/Sex: 68/M Location: [facility] Status: Signed Intake Vital Signs 04/04/24 13:26 Height 5 ft 6 in Weight: 160 lb 6 oz BMI 25.9 BP 137/66 H Blood Pressure Location Lt brachial Position Sitting Respiration 18 Pulse 75 Pulse Source Monitor Temp 98.7 F Pulse Oximetry (%) 100 Oxygen Delivery Method room air Intake Visit Reasons: RIGHT KNEE Allergies ketorolac tromethamine (From Toradol) Allergy (Verified 04/11/24 08:32) Shortness of breath pollen extracts Allergy (Verified 04/11/24 08:32) Unknown Sulfa (Sulfonamide Antibiotics) Allergy (Verified 04/11/24 08:32) Swelling tolmetin sodium (From Tolectin) Allergy (Verified 04/11/24 08:32) Hives tetracycline (Tetracycline) Adverse Reaction (Verified 04/11/24 08:32) Other Medications ???Medication ???Instructions ???Recorded ???Confirmed ???Type multivitamin with folic acid 400 1 tab PO DAILY 01/01/14 04/11/24 History mcg tablet methylphenidate HCl 20 mg tablet 20 mg PO BID 11/05/20 04/11/24 History (Ritalin) prasterone (dhea) 25 mg capsule 25 mg PO DAILY 11/05/20 04/11/24 History aspirin 81 mg capsule 81 mg PO DAILY #30 caps 11/10/20 04/11/24 Rx tadalafil 20 mg tablet 20 mg PO DAILY PRN 12/04/20 04/11/24 History nitroglycerin 0.4 mg sublingual 0.4 mg sublingual Q5-15M PRN chest 12/08/21 04/11/24 Rx tablet (Nitrostat) pain #25 tabs omeprazole 40 mg capsule,delayed 40 mg PO DAILY gerd 12/08/21 04/11/24 History release folic acid 1 mg tablet 2 mg PO DAILY 02/21/23 04/11/24 History methotrexate sodium 2.5 mg tablet 12.5 mg PO QWEEK 02/21/23 04/11/24 History prednisone 10 mg tablet 10 mg PO DAILY PRN 02/21/23 04/11/24 History oxycodone-acetaminophe n 7.5 mg-325 1 tab PO TID PRN 03/24/23 04/11/24 History mg tablet rosuvastatin 40 mg tablet 40 mg PO DAILY 03/24/23 04/11/24 History testosterone topical DAILY 03/24/23 04/11/24 History lisinopril 5 mg tablet 5 mg PO DAILY #90 tabs 05/16/23 04/11/24 Rx hydroxychloroquine 200 mg tablet 200 mg PO DAILY 09/01/23 04/11/24 History (Plaquenil) metoprolol succinate 25 mg 25 mg PO DAILY #90 tabs 02/28/24 04/11/24 Rx tablet,extended release 24 hr duloxetine 60 mg capsule,delayed 60 mg PO QDAY 03/21/24 04/11/24 History release methylprednisolone 4 mg tablets in See Rx Instructions PO PER PKG DIR 04/11/24 04/11/24 Rx a dose pack (Medrol (Андрей)) #21 tabs Have you fallen in the past year?: No PFSH Medical History Ischemic cardiomyopathy Tear of right rotator cuff Elevated serum creatinine Anemia Foraminal stenosis of cervical region Rotator cuff tendonitis Inflammation of joint of right shoulder region Right shoulder pain Tear of medial meniscus of left knee Effusion of knee joint right Essential hypertension Anterior myocardial infarction (11/09/20) Atherosclerotic heart disease of [place] coronary artery without angina pectoris ADHD Mechanical pain of left knee Bunion of great toe of right foot Hammer toe of right foot GERD (gastroesophageal reflux disease) 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 Back problem Arthritis Osteoarthritis, multiple sites Surgical History History of right shoulder replacement Previous back surgery History of lumbar spinal fusion History of surgery on left wrist ( 04/2021) History of fusion of cervical spine History of total right knee replacement History of coronary artery stent placement (11/09/20) History of knee surgery Status post reverse total shoulder replacement S/P hernia repair s/p feet s/p hands s/p forearms s/p elbows s/p shoulders s/p neck Family History Mother Lung cancer Father Cancer bladder Depression Emphysema lung Sister Pacemaker Social History household members: spouse Smoking Status: Former smoker alcohol intake: never substance use type: does not use what type of physical activity do you participate in: walking HPI RIGHT KNEE Details: This documentation accurately reflects the service provided and the decisions made by me, Dr. Reginaldo Blank, DO 04/11/24 0754. Part of today???s visit was documented by Leann MELISSA, acting as scribe. VAUGHN DINERO is a 68 year old M here today for 04/11/2024: Patient is here today right knee pain. He states that his pain is over the distal Iliotibial band He has been doing PT f (more content not included)... Normal [facility] ALINA + Protein Elect, Serumon 04-09-2024 Albumin [Mass/Vol] 3.8 g/dL Normal 2.9-4.4 [facility] Comment on above: Order Comment: N Performed By: #### L 500.4050, L300.3900, L100.0100, L300.4310, L3130.0010, L504.2610, L300.4700, L3100.3425 #### [facility] [address] [place], [place], [id number] Albumin/Globulin [Mass ratio] 1.5 {ratio} Normal 0.7-1.7 [facility] Comment on above: Order Comment: N Performed By: #### L 500.4050, L300.3900, L100.0100, L300.4310, L3130.0010, L504.2610, L300.4700, L3100.3425 #### [facility] [address] [place], [place], [phone] ([phone] QBKSZ-9-UTCT 0.3 g/dL Normal 0.0-0.4 [facility] Comment on above: Order Comment: N Performed By: #### L 500.4050, L300.3900, L100.0100, L300.4310, L3130.0010, L504.2610, L300.4700, L3100.3425 #### [facility] [address] [place], [address] SZRQC-8-YWKD 0.6 g/dL Normal 0.4-1.0 [facility] Comment on above: Order Comment: N Performed By: #### L 500.4050, L300.3900, L100.0100, L300.4310, L3130.0010, L504.2610, L300.4700, L3100.3425 #### [facility] [address] [place], [address] BETA GLOBULIN 1.0 g/dL Normal 0.7-1.3 [facility] Comment on above: Order Comment: N Performed By: #### L 500.4050, L300.3900, L100.0100, L300.4310, L3130.0010, L504.2610, L300.4700, L3100.3425 #### [facility] [address] [place], [address] GAMMA GLOBULIN 0.7 g/dL Normal 0.4-1.8 [facility] Comment on above: Order Comment: N Performed By: #### L 500.4050, L300.3900, L100.0100, L300.4310, L3130.0010, L504.2610, L300.4700, L3100.3425 #### [facility] [address] [place], [address] Globulin (S) [Mass/Vol] 2.6 g/dL Normal 2.2-3.9 [facility] Comment on above: Order Comment: N Performed By: #### L 500.4050, L300.3900, L100.0100, L300.4310, L3130.0010, L504.2610, L300.4700, L3100.3425 #### [facility] [address] [place], [address] ALINA RESULT,S Comment Normal . [facility] Comment on above: Order Comment: N Result Comment: No m onoclonality detected. Performed By: #### L 500.4050, L300.3900, L100.0100, L300.4310, L3130.0010, L504.2610, L300.4700, L3100.3425 #### [facility] [address] [place], [address] IMMUNOGLOB A QN 160 mg/dL Normal 61-437 [facility] Comment on above: Order Comment: N Performed By: #### L 500.4050, L300.3900, L100.0100, L300.4310, L3130.0010, L504.2610, L300.4700, L3100.3425 #### [facility] [address] [place], [place], [phone] (671) IMMUNOGLOB G QN 699 mg/dL Normal 603-1613 [facility] Comment on above: Order Comment: N Performed By: #### L 500.4050, L300.3900, L100.0100, L300.4310, L3130.0010, L504.2610, L300.4700, L3100.3425 #### [facility] [address] [place], [address] IMMUNOGLOB M QN 20 mg/dL Normal 20-172 [facility] Comment on above: Order Comment: N Result Comment: Resu lt confirmed on concentration. Performed By: #### L 500.4050, L300.3900, L100.0100, L300.4310, L3130.0010, L504.2610, L300.4700, L3100.3425 #### [facility] [address] [place], [address] M-Tawanda Not Observed Normal Not Observed [facility] Comment on above: Order Comment: N Performed By: #### L 500.4050, L300.3900, L100.0100, L300.4310, L3130.0010, L504.2610, L300.4700, L3100.3425 #### [facility] [address] [place], [address] NOTE: Comment Normal . [facility] Comment on above: Order Comment: N Result Comment: Prot ein electrophoresis scan will follow via computer, mail, or promotional marketing agent delivery. Performed By: #### L 500.4050, L300.3900, L100.0100, L300.4310, L3130.0010, L504.2610, L300.4700, L3100.3425 #### [facility] [address] [place], [address] Protein [Mass/Vol] 6.4 g/dL Normal 6.0-8.5 [facility] Comment on above: Order Comment: N Performed By: #### L 500.4050, L300.3900, L100.0100, L300.4310, L3130.0010, L504.2610, L300.4700, L3100.3425 #### [facility] [address] [place], [address] [place] Lambda Light Chainson 04-09-2024 FR KAPPA LT CHN 16.3 mg/L Normal 3.3-19.4 [facility] Comment on above: Order Comment: N Performed By: #### L 500.4050, L300.3900, L100.0100, L300.4310, L3130.0010, L504.2610, L300.4700, L3100.3425 ####[facility] [address] [place], [address] FR LAMBDA LT CH 11.2 mg/L Normal 5.7-26.3 [facility] Comment on above: Order Comment: N Performed By: #### L 500.4050, L300.3900, L100.0100, L300.4310, L3130.0010, L504.2610, L300.4700, L3100.3425 ####[facility] [address] [place], [place], [phone] KAPPA/LAMBDA % 1.46 Normal 0.26-1.65 [facility] Comment on above: Order Comment: N Result Comment: Perf ormed at: [facility] [address] [id number] [employer] Dispatcher: Jose Angel Marks PhD, Phone: [phone] Performed By: #### L 500.4050, L300.3900, L100.0100, L300.4310, L3130.0010, L504.2610, L300.4700, L3100.3425 ####[facility] [address] [place], [place], [phone] Absolute neutrophil countOrd ered By: Reginaldo Nava on 04-04-2024 Neutrophils (Bld) [#/Vol] 3.0 10*3/uL 2.0-7.7 [facility] Activated partial thrombopla stin time (aPTT) in platelet poor plasma by coagulation aOrdered By: Reginaldo Nava on 04-04-2024 aPTT Coag (PPP) [Time] 27.2 s 24.1-36.2 [facility] Addendum DocumentOrdered By: Reginaldo Nava on 04-04-2024 Serum Immunofixation Comments Comment . [facility] Comment on above: Protein electrophore sis scan will follow via computer,mail, or promotional marketing agent delivery. Albumin Elph [Mass/Vol]Order ed By: Reginaldo Nava on 04-04-2024 Albumin [Mass/Vol] 3.8 g/dL 2.9-4.4 [facility] Albumin to globulin ratioOrd ered By: Reginaldo Nava on 04-04-2024 Albumin/Globulin [Mass ratio] 1.3 {ratio} 0.9-2.4 [facility] Alpha 1 globulin Elph [Mass/ Vol]Ordered By: Reginaldo Nava on 04-04-2024 Akigf-2-Bnwuynxct (ALINA) 0.3 g/dL 0.0-0.4 [facility] Jkhae-7-Qccqhlcth (ALINA) 0.6 g/dL 0.4-1.0 [facility] Basophil percentageOrdered B y: Reginaldo Nava on 04-04-2024 Basophils/100 WBC (Bld) 0.3 % 0-1 [facility] Beta globulin Elph [Mass/Vol ]Ordered By: Reginaldo Corbetttasneem on 04-04-2024 Beta-Globulins (ALINA) 1.0 g/dL 0.7-1.[address] [facility] Bilirubin, totalOrdered By: Reginaldo Corbetttasneem on 04-04-2024 Bilirubin [Mass/Vol] 0.40 mg/dL 0.20-1.[address] [facility] Comment on above: For patients on eltr ombopag therapy, use of Dimension [place] TBIL is not recommended. Blood urea nitrogen (BUN)/cr eatinine ratioOrdered By: Reginaldo Elijah on 04-04-2024 Urea nitrogen/Creatinine [Mass ratio] 10.1 mg/mg 10-20 [facility] CBC W/Diff, Automatedon 03-15 Absolute Lymph 0.63 X10 3/uL Low 0.83-4.51 [facility] Comment on above: Performed By: #### L 500.4050, L300.3900, L100.0100, L300.4310, L3130.0010, L504.2610, L300.4700, L3100.3425 #### [facility] [address] [place], [place], [phone] ([phone] Absolute Neut 3.0 X10 3/uL Normal 2.0-7.7 [facility] Comment on above: Performed By: #### L 500.4050, L300.3900, L100.0100, L300.4310, L3130.0010, L504.2610, L300.4700, L3100.3425 #### [facility] [address] [place], [address] Basophils/100 WBC (Bld) 0.3 % Normal 0-1 [facility] Comment on above: Performed By: #### L 500.4050, L300.3900, L100.0100, L300.4310, L3130.0010, L504.2610, L300.4700, L3100.3425 #### [facility] [address] [place], [place], [phone] ([address] Eosinophils/100 WBC (Bld) 0.3 % Normal 0-5 [facility] Comment on above: Performed By: #### L 500.4050, L300.3900, L100.0100, L300.4310, L3130.0010, L504.2610, L300.4700, L3100.3425 #### [facility] Laboratory [address] [place], [address] Erythrocyte distribution width (RBC) [Ratio] 14.1 % Normal 11.6-14.6 [facility] Comment on above: Performed By: #### L 500.4050, L300.3900, L100.0100, L300.4310, L3130.0010, L504.2610, L300.4700, L3100.3425 #### [facility] Laboratory [address] [place], [address] Hematocrit (Bld) [Volume fraction] 36.0 % Low 40-54 [facility] Comment on above: Performed By: #### L 500.4050, L300.3900, L100.0100, L300.4310, L3130.0010, L504.2610, L300.4700, L3100.3425 #### [facility] Laboratory [address] [place], [address] Hemoglobin (Bld) [Mass/Vol] 12.4 g/dL Low 13.0-16.5 [facility] Comment on above: Performed By: #### L 500.4050, L300.3900, L100.0100, L300.4310, L3130.0010, L504.2610, L300.4700, L3100.3425 #### [facility] Laboratory [address] [place], [address] IG% 0.500 Normal 0.0-0.9 [facility] Comment on above: Result Comment: IG% - Immature Granulocytes (promyelocytes, myelocytes and metamyelocytes) > 1% indicates that a LEFT SHIFT is Present. Performed By: #### L 500.4050, L300.3900, L100.0100, L300.4310, L3130.0010, L504.2610, L300.4700, L3100.3425 #### [facility] Laboratory [address] [place], [address] Lymphocytes/100 WBC (Bld) 16.1 % Low 19-41 [facility] Comment on above: Performed By: #### L 500.4050, L300.3900, L100.0100, L300.4310, L3130.0010, L504.2610, L300.4700, L3100.3425 #### [facility] Laboratory [address] [place], [address] MCH (RBC) [Entitic mass] 30.5 pg Normal 27.0-32.0 [facility] Comment on above: Performed By: #### L 500.4050, L300.3900, L100.0100, L300.4310, L3130.0010, L504.2610, L300.4700, L3100.3425 #### [facility] Laboratory [address] [place], [address] MCHC (RBC) [Mass/Vol] 34.4 g/dL Normal 32-36 [facility] Comment on above: Performed By: #### L 500.4050, L300.3900, L100.0100, L300.4310, L3130.0010, L504.2610, L300.4700, L3100.3425 #### [facility] [address] [place], [address] MCV (RBC) [Entitic vol] 88.5 fL Normal 80-94 [facility] Comment on above: Performed By: #### L 500.4050, L300.3900, L100.0100, L300.4310, L3130.0010, L504.2610, L300.4700, L3100.3425 #### [facility] Laboratory [address] [place], [address] Monocytes/100 WBC (Bld) 6.9 % Normal 0-10 [facility] Comment on above: Performed By: #### L 500.4050, L300.3900, L100.0100, L300.4310, L3130.0010, L504.2610, L300.4700, L3100.3425 #### [facility] [address] [place], [address] Neutrophils/100 WBC (Bld) 75.9 % High 47-70 [facility] Comment on above: Performed By: #### L 500.4050, L300.3900, L100.0100, L300.4310, L3130.0010, L504.2610, L300.4700, L3100.3425 #### [facility] [address] [facility] [place], [address] Nucleated RBC (Bld) [#/Vol] 0 10*3/uL Normal 0-5 [facility] Comment on above: Performed By: #### L 500.4050, L300.3900, L100.0100, L300.4310, L3130.0010, L504.2610, L300.4700, L3100.3425 #### [facility] [address] [place], [address] Platelet mean volume (Bld) [Entitic vol] 9.4 fL Normal 6.2-12.0 [facility] Comment on above: Performed By: #### L 500.4050, L300.3900, L100.0100, L300.4310, L3130.0010, L504.2610, L300.4700, L3100.3425 #### [facility] Laboratory [address] [place], [address] Platelets (Bld) [#/Vol] 166 10*3/uL Normal 150-450 [facility] Comment on above: Performed By: #### L 500.4050, L300.3900, L100.0100, L300.4310, L3130.0010, L504.2610, L300.4700, L3100.3425 #### [facility] [address] [place], [address] RBC (Bld) [#/Vol] 4.07 10*6/uL Low 4.6-6.2 [facility] Comment on above: Performed By: #### L 500.4050, L300.3900, L100.0100, L300.4310, L3130.0010, L504.2610, L300.4700, L3100.3425 #### [facility] [address] [place], [address] RDW SD 45.2 fl High 35.1-43.9 [facility] Comment on above: Performed By: #### L 500.4050, L300.3900, L100.0100, L300.4310, L3130.0010, L504.2610, L300.4700, L3100.3425 #### [facility] [address] [place], [address] WBC (Bld) [#/Vol] 3.9 10*3/uL Low 4.4-11.0 [facility] Comment on above: Performed By: #### L 500.4050, L300.3900, L100.0100, L300.4310, L3130.0010, L504.2610, L300.4700, L3100.3425 #### [facility] Laboratory [address] [place], [address] Carbon dioxide measurementOr dered By: Reginaldo Nava on 04-04-2024 CO2 [Moles/Vol] 29.0 mmol/L 21.0-32.0 [facility] Chloride measurementOrdered By: Reginaldo Nava on 04-04-2024 Chloride [Moles/Vol] 101 mmol/L 98-[address] [facility] Comprehensive Metabolic Prof ilon 04-04-2024 Albumin [Mass/Vol] 3.9 g/dL Normal 3.2-5.0 [facility] Comment on above: Order Comment: 1 Performed By: #### L 500.4050, L300.3900, L100.0100, L300.4310, L3130.0010, L504.2610, L300.4700, L3100.3425 #### [facility] Laboratory [address] [place], [place], [id number] Albumin/Globulin [Mass ratio] 1.3 {ratio} Normal 0.9-2.4 [facility] Comment on above: Order Comment: 1 Performed By: #### L 500.4050, L300.3900, L100.0100, L300.4310, L3130.0010, L504.2610, L300.4700, L3100.3425 #### [facility] Laboratory [address] [place], [address] ALK P 66 U/L Normal 45-117 [facility] Comment on above: Order Comment: 1 Performed By: #### L 500.4050, L300.3900, L100.0100, L300.4310, L3130.0010, L504.2610, L300.4700, L3100.3425 #### [facility] [address] [place], [address] ALT [Catalytic activity/Vol] 32 U/L Normal 16-61 [facility] Comment on above: Order Comment: 1 Performed By: #### L 500.4050, L300.3900, L100.0100, L300.4310, L3130.0010, L504.2610, L300.4700, L3100.3425 #### [facility] [address] [place], [address] AST [Catalytic activity/Vol] 27 U/L Normal 15-37 [facility] Comment on above: Order Comment: 1 Performed By: #### L 500.4050, L300.3900, L100.0100, L300.4310, L3130.0010, L504.2610, L300.4700, L3100.3425 #### [facility] Laboratory [address] [place], [address] ([address] Bilirubin [Mass/Vol] 0.40 mg/dL Normal 0.20-1.[address] [facility] Comment on above: Order Comment: 1 Result Comment: For patients on eltrombopag therapy, use of Dimension [place] TBIL is not recommended. Performed By: #### L 500.4050, L300.3900, L100.0100, L300.4310, L3130.0010, L504.2610, L300.4700, L3100.3425 #### [facility] [address] [place], [address] BUN/CRE 10.1 RATIO Normal 10-20 [facility] Comment on above: Order Comment: 1 Performed By: #### L 500.4050, L300.3900, L100.0100, L300.4310, L3130.0010, L504.2610, L300.4700, L3100.3425 #### [facility] Laboratory [address] [place], [address] CA,Total 9.2 mg/dL Normal 8.5-10.1 [facility] Comment on above: Order Comment: 1 Performed By: #### L 500.4050, L300.3900, L100.0100, L300.4310, L3130.0010, L504.2610, L300.4700, L3100.3425 #### [facility] [address] [place], [address] Chloride [Moles/Vol] 101 mmol/L Normal 98-[address] [facility] Comment on above: Order Comment: 1 Performed By: #### L 500.4050, L300.3900, L100.0100, L300.4310, L3130.0010, L504.2610, L300.4700, L3100.3425 #### [facility] [address] [place], [address] CO2 [Moles/Vol] 29.0 mmol/L Normal 21.0-32.0 [facility] Comment on above: Order Comment: 1 Performed By: #### L 500.4050, L300.3900, L100.0100, L300.4310, L3130.0010, L504.2610, L300.4700, L3100.3425 #### [facility] Laboratory [address] [place], [address] Creatinine [Mass/Vol] 1.19 mg/dL Normal 0.70-1.30 [facility] Comment on above: Order Comment: 1 Result Comment: The validity of the calculated GFR GFRAA in patients over 70 years has not been determined. Clinical correlation is essential. Performed By: #### L 500.4050, L300.3900, L100.0100, L300.4310, L3130.0010, L504.2610, L300.4700, L3100.3425 #### [facility] [address] [place], [address] ECRCL 52.87 ml/min Normal [facility] Comment on above: Order Comment: 1 Performed By: #### L 500.4050, L300.3900, L100.0100, L300.4310, L3130.0010, L504.2610, L300.4700, L3100.3425 #### [facility] Laboratory [address] [place], [place], [id number] EST GFR - AA 78 mL/min Normal >60 [facility] Comment on above: Order Comment: 1 Result Comment: Afri can [place] GFR Calc Performed By: #### L 500.4050, L300.3900, L100.0100, L300.4310, L3130.0010, L504.2610, L300.4700, L3100.3425 #### [facility] Laboratory [address] [place], [address] GAP 6 Normal 5-15 [facility] Comment on above: Order Comment: 1 Performed By: #### L 500.4050, L300.3900, L100.0100, L300.4310, L3130.0010, L504.2610, L300.4700, L3100.3425 #### [facility] Laboratory [address] [place], [address] GFR/1.73 sq M.predicted among non-blacks MDRD (S/P/Bld) [Vol rate/Area] 64 mL/min/{1.73_m2} Normal >60 [facility] Comment on above: Order Comment: 1 Result Comment: Non- GFR Calc Performed By: #### L 500.4050, L300.3900, L100.0100, L300.4310, L3130.0010, L504.2610, L300.4700, L3100.3425 #### [facility] Laboratory [address] [place], [place], [id number] [phone] Globulin (S) [Mass/Vol] 3.1 g/dL Normal 2.2-4.2 [facility] Comment on above: Order Comment: 1 Performed By: #### L 500.4050, L300.3900, L100.0100, L300.4310, L3130.0010, L504.2610, L300.4700, L3100.3425 #### [facility] Laboratory [address] [place], [address] Glucose [Mass/Vol] 140 mg/dL High 74-106 [facility] Comment on above: Order Comment: 1 Result Comment: Fast ing Glucose result greater than or equal to 126 mg/dL suggests DIABETES MELLITUS per A.D.A. criteria. Performed By: #### L 500.4050, L300.3900, L100.0100, L300.4310, L3130.0010, L504.2610, L300.4700, L3100.3425 #### [facility] [address] [place], [address] Potassium [Moles/Vol] 4.2 mmol/L Normal 3.5-5.1 [facility] Comment on above: Order Comment: 1 Performed By: #### L 500.4050, L300.3900, L100.0100, L300.4310, L3130.0010, L504.2610, L300.4700, L3100.3425 #### [facility] Laboratory [address] [place], [address] Sodium [Moles/Vol] 136 mmol/L Normal 136-145 [facility] Comment on above: Order Comment: 1 Performed By: #### L 500.4050, L300.3900, L100.0100, L300.4310, L3130.0010, L504.2610, L300.4700, L3100.3425 #### [facility] Laboratory [address] [place], [address] T PROT 7.0 g/dL Normal 6.4-8.2 [facility] Comment on above: Order Comment: 1 Performed By: #### L 500.4050, L300.3900, L100.0100, L300.4310, L3130.0010, L504.2610, L300.4700, L3100.3425 #### [facility] [address] [place], [address] Urea nitrogen [Mass/Vol] 12 mg/dL Normal 7-18 [facility] Comment on above: Order Comment: 1 Performed By: #### L 500.4050, L300.3900, L100.0100, L300.4310, L3130.0010, L504.2610, L300.4700, L3100.3425 #### [facility] Laboratory [address] [place], [address] Eosinophil percentageOrdered By: Reginaldo Nava on 04-04-2024 Eosinophils/100 WBC (Bld) 0.3 % 0-5 [facility] Erythrocyte distribution wid th ratioOrdered By: Reginaldo Nava on 04-04-2024 Erythrocyte distribution width (RBC) [Ratio] 14.1 % 11.6-14.6 [facility] Erythrocyte distribution wid th standard deviationOrdered By: Reginaldo Nava on 04-04-2024 Erythrocyte distribution width (RBC) [Entitic vol] 45.2 fL High 35.1-43.9 [facility] Estimated glomerular filtrat ion rate (GFR) AmericanOrdered By: Reginaldo Nava on 04-04-2024 Estimated GFR (MDRD) Amer 78 mL/min >60 [facility] Comment on above: GFR Calc Estimation of creatinine reinaldo aranceOrdered By: Reginaldo Nava on 04-04-2024 Estimated Creatinine Clearance Calc 52.87 ml/min [facility] Fibrinogenon 04-04-2024 FIBRINOGEN 288 mg/dl Normal [facility] Comment on above: Performed By: #### L 500.4050, L300.3900, L100.0100, L300.4310, L3130.0010, L504.2610, L300.4700, L3100.3425 #### [facility] [address] [place], [address] Fibrinogen measurementOrdere d By: Reginaldo Nava on 04-04-2024 Fibrinogen 288 mg/dl -44 [facility] Gamma globulin Elph [Mass/Vo l]Ordered By: Reginaldo Nava on 04-04-2024 Gamma Globulins (ALINA) 0.7 g/dL 0.4-1.8 [facility] Glomerular filtration rate ( GFR) estimationOrdered By: Reginaldo Nava on 04-04-2024 Estimated GFR (MDRD) Non-Af Amer 64 mL/min >60 [facility] Comment on above: Non- GFR Calc Glucose measurementOrdered B y: Reginaldo Nava on 04-04-2024 Glucose [Mass/Vol] 140 mg/dL High 74-106 [facility] Comment on above: Fasting Glucose resu lt greater than or equal to 126 mg/dL suggests DIABETES MELLITUS per A.D.A. criteria. Hematocrit Auto (Bld) [Volum e fraction]Ordered By: Reginaldo Nava on 04-04-2024 Hematocrit (Bld) [Volume fraction] 36.0 % Low 40-54 [facility] Hemoglobin measurementOrdere d By: Reginaldo Nava on 04-04-2024 Hemoglobin (Bld) [Mass/Vol] 12.4 g/dL Low 13.0-16.5 [facility] IgA [Mass/Vol]Ordered By: Linnea Nava on 04-04-2024 Immunoglobulin A 160 mg/dL 61-437 [facility] IgG [Mass/Vol]Ordered By: Linnea Nava on 04-04-2024 Immunoglobulin G 699 mg/dL 603-1613 [facility] Immature granulocytes/100 WB C Auto (Bld)Ordered By: Reginaldo Nava on 04-04-2024 Immature granulocytes/100 WBC (Bld) 0.500 % 0.0-0.9 [facility] Comment on above: IG% - Immature Granu locytes (promyelocytes, myelocytes and metamyelocytes) > 1% indicates that a LEFT SHIFT is Present. Immunoglobulin M measurement Ordered By: Reginaldo Nava on 04-04-2024 Immunoglobulin M 20 mg/dL 20-172 [facility] Comment on above: Result confirmed on concentration. Immunoglobulin light chains. kappa [Mass/Vol]Ordered By: Reginaldo Nava on 04-04-2024 Free [place] Light Chains, Quant 16.3 mg/L 3.3-19.4 [facility] Immunoglobulin light chains. kappa/Immunoglobulin light chains.lambda (S) [Mass ratio]Ordered By: Reginaldo Nava on 04-04-2024 Free [place]/Lambda Light Chain Ratio 1.46 0.26-1.65 [facility] Comment on above: Performed at: [address] [id number] Director: Jose Angel Marks PhD, Phone: [phone] International normalized rat io (INR) calculationOrdered By: Reginaldo Nava on 04-04-2024 INR Coag (Bld) [Relative time] 1.0 {INR} [facility] Interpretation IEP [Interp]O rdered By: Reginaldo Nava on 04-04-2024 Immunofixation Screen Comment . [facility] Comment on above: No monoclonality det ected. Interpretation of serum or p lasma protein pattern by immunofixation (narrative resultOrdered By: Reginaldo Nava on 04-04-2024 Protein Fractions Immunofixation Xavi [Interp] Not Observed g/dL Not Observed [facility] LDHon 04-04-2024 LDH 260 U/L High 87-241 [facility] Comment on above: Order Comment: 1 Performed By: #### L 500.4050, L300.3900, L100.0100, L300.4310, L3130.0010, L504.2610, L300.4700, L3100.3425 #### [facility] Laboratory [address] [place], [address] Laboratory - Chemistry and C hemistry - challengeOrdered By: Reginaldo Naav on 04-04-2024 AST [Catalytic activity/Vol] 27 U/L 15-37 [facility] Lactate dehydrogenase (LDH) measurementOrdered By: Reginaldo Nava on 04-04-2024 LDH [Catalytic activity/Vol] 260 U/L High 87-241 [facility] Lambda free light chain ioana urementOrdered By: Reginaldo Nava on 04-04-2024 Free [place] Light Chains, Quant 11.2 mg/L 5.7-26.3 [facility] Lymphocytes Auto (Unsp spec) [#/Vol]Ordered By: Reginaldo Nava on 04-04-2024 Lymphocytes (Bld) [#/Vol] 0.63 10*3/uL Low 0.83-4.51 [facility] Lymphocytes/100 WBC Auto (Un sp spec)Ordered By: Reginaldo Nava on 04-04-2024 Lymphocytes/100 WBC (Bld) 16.1 % Low 19-41 [facility] MCV (mean corpuscular volume ) determinationOrdered By: Reginaldo Nava on 04-04-2024 MCV (RBC) [Entitic vol] 88.5 fL 80-94 [facility] Mean corpuscular hemoglobin (MCH) determinationOrdered By: Reginaldo Nava on 04-04-2024 MCH (RBC) [Entitic mass] 30.5 pg 27.0-32.0 [facility] Mean corpuscular hemoglobin concentration (MCHC) determinationOrdered By: Reginaldo Nava on 04-04-2024 MCHC (RBC) [Mass/Vol] 34.4 g/dL 32-36 [facility] Mean platelet volume determi nationOrdered By: Reginaldo Nava on 04-04-2024 Platelet mean volume (Bld) [Entitic vol] 9.4 fL 6.2-12.0 [facility] Monocyte percentageOrdered B y: Reginaldo Nava on 04-04-2024 Monocytes/100 WBC (Bld) 6.9 % 0-10 [facility] Neutrophil percentageOrdered By: Reginaldo Nava on 04-04-2024 Neutrophils/100 WBC (Bld) 75.9 % High 47-70 [facility] No Panel InformationOrdered By: Reginaldo Nava on 04-04-2024 Addendum Document Comment . [facility] Comment on above: Protein electrophore sis scan will follow via computer,mail, or promotional marketing agent delivery. Nucleated red blood cell per centageOrdered By: Reginaldo Nava on 04-04-2024 Nucleated RBC/100 WBC (Bld) [Ratio] 0 % 0-5 [facility] Oncology Visit Reporton 03-15 Oncology Visit Report [facility] [address] [place] [address] OFFICE VISIT Date of Service: 04/04/24 1325 MR#: [id number] Acct: [id number] Name: VAUGHN DINERO Rep #: [id number] : 1955 From: Reginaldo Nava MD Age/Sex: 68/M Location: [facility] Status: Signed HPI Subjective Date of Service 04/04/24 Chief Complaint Had R eyelid bruise a week ago. History of Present Illness 68y.o.man presented with Leukopenia/Neutropenia , had a bone marrow bx on 07/02/2014 which showed Normocellular bone marrow, Trilineage hematopoiesis with no significant pathologic change. IFX showed no monoclonal Gammopathy. He was found to have Iron deficiency and started Oral iron pills. He had spontaneous eyelids bruises and Plavix was discontinued. Bruising stopped. He was on observation, had another spontaneous bruise of the R eyelid and comes for follow up. He feels well. [facility] Medical History Ischemic cardiomyopathy Tear of right rotator cuff Elevated serum creatinine Anemia Foraminal stenosis of cervical region Rotator cuff tendonitis Inflammation of joint of right shoulder region Right shoulder pain Tear of medial meniscus of left knee Effusion of knee joint right Essential hypertension Anterior myocardial infarction (11/09/20) Atherosclerotic heart disease of [place] coronary artery without angina pectoris ADHD Mechanical pain of left knee Bunion of great toe of right foot Hammer toe of right foot GERD (gastroesophageal reflux disease) 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 Back problem Arthritis Osteoarthritis, multiple sites Surgical History History of right shoulder replacement Previous back surgery History of lumbar spinal fusion History of surgery on left wrist ( 04/2021) History of fusion of cervical spine History of total right knee replacement History of coronary artery stent placement (11/09/20) History of knee surgery Status post reverse total shoulder replacement S/P hernia repair s/p feet s/p hands s/p forearms s/p elbows s/p shoulders s/p neck Family History Mother Lung cancer Father Cancer bladder Depression Emphysema lung Sister Pacemaker Social History household members: spouse Smoking Status: Former smoker alcohol intake: never substance use type: does not use what type of physical activity do you participate in: walking Intake Vital Signs 09/01/23 14:57 03/22/24 08:30 04/04/24 13:26 Height 5 ft 6 in 5 ft 6 in 5 ft 6 in Weight: 72.745 kg BMI 25.9 BP 137/66 H Blood Pressure Location Lt brachial Position Sitting Respiration 18 Pulse 75 Pulse Source Monitor Temp 98.7 F Temperature Source Temporal Artery Pulse Oximetry (%) 100 Oxygen Delivery Method room air Intake Is patient in pain?: No Allergies ketorolac tromethamine (From Toradol) Allergy (Verified 04/04/24 13:29) Shortness of breath pollen extracts Allergy (Verified 04/04/24 13:29) Unknown Sulfa (Sulfonamide Antibiotics) Allergy (Verified 04/04/24 13:29) Swelling tolmetin sodium (From Tolectin) Allergy (Verified 04/04/24 13:29) Hives tetracycline (Tetracycline) Adverse Reaction (Verified 04/04/24 13:29) Other Medications ???Medication ???Instructions ???Recorded ???Confirmed ???Type multivitamin with folic acid 400 1 tab PO DAILY 01/01/14 04/04/24 History mcg tablet methylphenidate HCl 20 mg tablet 20 mg PO BID 11/05/20 04/04/24 History (Ritalin) prasterone (dhea) 25 mg capsule 25 mg PO DAILY 11/05/20 04/04/24 History aspirin 81 mg capsule 81 mg PO DAILY #30 caps 11/10/20 04/04/24 Rx tadalafil 20 mg tablet 20 mg PO DAILY PRN 12/04/20 04/04/24 History nitroglycerin 0.4 mg sublingual 0.4 mg sublingual Q5-15M PRN chest 12/08/21 04/04/24 Rx tablet (Nitrostat) pain #25 tabs omeprazole 40 mg capsule,delayed 40 mg PO DAILY gerd 12/08/21 04/04/24 History release folic acid 1 mg tablet 2 mg PO DAILY 02/21/23 04/04/24 History methotrexate sodium 2.5 mg tablet 12.5 mg PO QWEEK 02/21/23 04/04/24 History prednisone 10 mg tablet 10 mg PO DAILY PRN 02/21/23 04/04/24 History oxycodone-acetaminophe n 7.5 mg-325 1 tab PO TID PRN 03/24/23 04/04/24 History mg tablet rosuvastatin 40 mg tablet 40 mg PO DAILY 03/24/23 04/04/24 History testosterone topical DAILY 03/24/23 04/04/24 History lisinopril 5 mg tablet 5 mg PO DAILY #90 tabs 05/16/23 04/04/24 Rx hydroxychloroquine 200 mg tablet 200 mg PO DAILY 09/01/23 04/04/24 History (Plaquenil) metoprolol succinate 25 mg 25 mg PO DAILY #90 tabs 02/28/24 04/04/24 Rx tablet,extended release 2 (more content not included)... Normal [facility] Partial Thromboplast Timeon 04-04-2024 aPTT Coag (Bld) [Time] 27.2 s Normal 24.1-36.2 [facility] Comment on above: Performed By: #### L 500.4050, L300.3900, L100.0100, L300.4310, L3130.0010, L504.2610, L300.4700, L3100.3425 #### [facility] Laboratory [address] [place], [address] Platelet countOrdered By: Linnea Nava on 04-04-2024 Platelets (Bld) [#/Vol] 166 10*3/uL 150-450 [facility] Potassium measurementOrdered By: Reginaldo Nava on 04-04-2024 Potassium [Moles/Vol] 4.2 mmol/L 3.5-5.1 [facility] Protein Fractions Immunofixa tion Xavi [Interp]Ordered By: Reginaldo Nava on 04-04-2024 M-Tawanda (ALINA) Not Observed g/dL Not Observed [facility] Prothrombin Time w/INRon INR Coag (PPP) [Relative time] 1.0 {INR} Normal [facility] Comment on above: Performed By: #### L 500.4050, L300.3900, L100.0100, L300.4310, L3130.0010, L504.2610, L300.4700, L3100.3425 #### [facility] Laboratory [address] [place], [address] PT Coag (PPP) [Time] 13.6 s Normal 11.7-14.[address] [facility] Comment on above: Performed By: #### L 500.4050, L300.3900, L100.0100, L300.4310, L3130.0010, L504.2610, L300.4700, L3100.3425 #### [facility] Laboratory [address] [place], [place], [id number] Prothrombin timeOrdered By: Reginaldo Nava on 04-04-2024 PT Coag (PPP) [Time] 13.6 s 11.7-14.[address] [facility] RBC Auto (Bld) [#/Vol]Ordere d By: Reginaldo Nava on 04-04-2024 RBC (Bld) [#/Vol] 4.07 10*6/uL Low 4.6-6.2 [facility] Serum albumin/globulin ratio Ordered By: Reginaldo Nava on 04-04-2024 Albumin/Globulin (ALINA) 1.5 0.7-1.7 [facility] Serum anion gap measurementO rdered By: Reginaldo Nava on 04-04-2024 Anion gap [Moles/Vol] 6 mmol/L 5-15 [facility] Serum globulin measurement ( mass/volume)Ordered By: Reginaldo Nava on 04-04-2024 Globulin (S) [Mass/Vol] 2.6 g/dL 2.2-3.9 [facility] Serum immunoglobulin kappa l ight chains/immunoglobulin lambda light chains mass ratioOrdered By: Reginaldo Nava on 04-04-2024 Immunoglobulin light chains.kappa/Immunoglob ulin light chains.lambda (S) [Mass ratio] 1.46 0.26-1.65 [facility] Comment on above: Performed at: [address] [id number] Director: Jose Angel Marks PhD, Phone: [phone] Serum or plasma IgA measurem ent (mass/volume)Ordered By: Reginaldo Nava on 04-04-2024 IgA [Mass/Vol] 160 mg/dL 61-437 [facility] Serum or plasma IgG measurem ent (mass/volume)Ordered By: Reginaldo Nava on 04-04-2024 IgG [Mass/Vol] 699 mg/dL 603-1613 [facility] Serum or plasma alanine cowan otransferase (ALT) measurementOrdered By: Reginaldo Nava on 04-04-2024 ALT [Catalytic activity/Vol] 32 U/L 16-61 [facility] Serum or plasma albumin ioana urement (mass/volume)Ordered By: Reginaldo Nava on 04-04-2024 Albumin [Mass/Vol] 3.9 g/dL 3.2-5.0 [facility] Serum or plasma alkaline abdirizak sphatase measurementOrdered By: Reginaldo Nava on 04-04-2024 ALP [Catalytic activity/Vol] 66 U/L 45-117 [facility] Serum or plasma alpha 1 glob ulin measurement by electrophoresis (mass/volume)Ordered By: Reginaldo Nava on 04-04-2024 Alpha 1 globulin Elph [Mass/Vol] 0.3 g/dL 0.0-0.4 [facility] Alpha 1 globulin Elph [Mass/Vol] 0.6 g/dL 0.4-1.0 [facility] Serum or plasma beta globuli n measurement by electrophoresis (mass/volume)Ordered By: Reginaldo Nava on 04-04-2024 Beta globulin Elph [Mass/Vol] 1.0 g/dL 0.7-1.3 [facility] Serum or plasma calcium ioana urement (mass/volume)Ordered By: Reginaldo Nava on 04-04-2024 Calcium [Mass/Vol] 9.2 mg/dL 8.5-10.1 [facility] Serum or plasma creatinine m easurement (mass/volume)Ordered By: Regianldo Nava on 04-04-2024 Creatinine [Mass/Vol] 1.19 mg/dL 0.70-1.30 [facility] Comment on above: The validity of the calculated GFR & GFRAA in patients over 70 years has not been determined. Clinical correlation is essential. Serum or plasma gamma globul in measurement by electrophoresis (mass/volume)Ordered By: Reginaldo Nava on 04-04-2024 Gamma globulin Elph [Mass/Vol] 0.7 g/dL 0.4-1.8 [facility] Serum or plasma immunoelectr ophoresis interpretation (nominal result)Ordered By: Reginaldo Nava on 04-04-2024 Interpretation IEP [Interp] Comment . [facility] Comment on above: No monoclonality det ected. Serum or plasma immunoglobul in kappa light chains measurement (mass/volume)Ordered By: Reginaldo Nava on 04-04-2024 Immunoglobulin light chains.kappa [Mass/Vol] 16.3 mg/L 3.3-19.4 [facility] Serum or plasma protein ioana urement (mass/volume)Ordered By: Reginaldo Nava on 04-04-2024 Protein [Mass/Vol] 6.4 g/dL 6.0-8.5 [facility] Serum or plasma urea nitroge n measurement (mass/volume)Ordered By: Reginaldo Naav on 04-04-2024 Urea nitrogen [Mass/Vol] 12 mg/dL 7-18 [facility] Sodium levelOrdered By: Jacques Nava on 04-04-2024 Sodium [Moles/Vol] 136 mmol/L 136-145 [facility] Total proteinOrdered By: Jose Nava on 04-04-2024 Protein [Mass/Vol] 7.0 g/dL 6.4-8.2 [facility] White blood cell (WBC) count Ordered By: Reginaldo Nava on 04-04-2024 WBC (Bld) [#/Vol] 3.9 10*3/uL Low 4.4-11.0 [facility] aPTT Coag (PPP) [Time]Ordere d By: Reginaldo Nava on 04-04-2024 aPTT Coag (Bld) [Time] 27.2 s 24.1-36.2 [facility] Inital Evaluation (1) - PTon 03-29-2024 Inital Evaluation (1) - PT [facility] Physical Therapy Health[address] [place] [address] / REHABILITATION SERVICES INITIAL EVALUATION MR#: [id number] Acct: [id number] Name: VAUGHN DINERO Rep #: [id number] : 1955 68 From: Cam Santillan PT, ATC Referring Dr.: Dr. Reginaldo Blank, DO Status: R EG RCR Insurance: MEDICARE PART A B [employer] SR SUPPLEMENT INS Patient's Visit Information Visit Information Visit Information: VAUGHN DINERO is a 68 year old M referred to Physical Therapy by Dr. Reginaldo Blank DO with a diagnosis of R IT band syndrome. Date of Evaluation: 03/28/24 Physical Therapist: Cam Santillan, PT, ATC Visit Plan Frequency: 2x /Week Duration: 4-6 Weeks Plan: R HS and IT band stretches, core strengthening ex's, bike, and HEP Subjective Subjective: Pt reports he has had R lateral leg pain for 6-8 months. Pt reports he has a lot of difficulty with getting out of the bed in the morning secondary to his R LE wanting to give out on him for the first 3 steps. Pt reports he has had x-rays which revealed his R TKA has healed well and is not causing this pain. Pt notes he cant lay on his R side for greater than 3 minutes with out experiencing a significant increase in pain. Pt denies any tingling or numbness in R LE other than lateral aspect that's been present since R TKA. Pt reports sleep difficulty secondary to pain. Pt also notes increased pain when he attempts to drive secondary to his R lateral leg pain. Pt reports he had been trying to jog a bit, but notes increased pain with that type of activity. Pt has stairs at home and has difficulty with negotiating them in the morning. 0/10 pain while sitting here at rest, 9/10 pain at worst. Pain R IT band: Pain Intensity (Out of 10): 0 Pain Intensity Range: 9 Objective Objective: Neuro: B LE sensation is WNL to light touch Palpation: Pt is point tender along the distribution of the R IT band ROM: B knees 0-135 degrees MMT: R knee flex= 44, ext= 48 #F: L knee flex= 36, ext= 41 #F Balance/Special Test Scores Lower Extremity Functional Score: 60 Goals Goal 1:: Decrease R knee pain x 50% to aid with sleep Goal Time Frame: 4-6 Weeks Goal 2:: Increase pt's tolerance for driving to greater than 10 min without experiencing increased R LE sx's Goal Time Frame: 4-6 Weeks Goal 3:: I with hep Goal Time Frame: 4-6 Weeks Rehabilitation Potential Physical Therapy Diagnosis: Pt has difficulty with sleep and R lateral leg pain secondary to R IT band syndrome Rehabilitation Potential: Good Anticipated Interventions Patient/Client Instruction: Educate patient on: Condition and Plan of Care For the Purpose of:: To improve self management Therapeutic Exercise to Include: Strength training, Endurance training, Flexibilty training and Dynamic Lumbar Stabilization For the Purpose of:: To decrease pain and To improve muscle performance and motor function Text: Thank you for the opportunity to evaluate your patient. For Medicare and Medicare HMO plans, please review the plan of care and approve it. It will need to be FAXED BACK to us at [phone] for Medicare purposes. For Medicare only, by signing this I certify the plan of care. Please let me know if there are questions or concerns regarding this plan of care. Physician Signature: Date:__ 03/29/24 1026 CC: Dr. Reginaldo Blank DO; Dr. True Ibarra DO [facility] Signed Normal [facility] Cardiology Visit Reporton Cardiology Visit Report [facility] [address] [place] [address] OFFICE VISIT Date of Service: 03/22/24 MR#: [id number] Acct: [id number] Name: VAUGHN DINERO Rep #: [id number] : 1955 Provider: DONG perez Age/Sex: 68/M Location: [facility] Status: Signed HPI HPI History of Present Illness Details: Vaughn Dinero is a 68-year-old gentleman who presents here today for a cardiovascular follow-up. He was admitted to the hospital 11/09/20 for midsternal chest discomfort without radiation. EMS EKG demonstrated ST elevation myocardial infarction. STEMI alert was called. He urgently underwent a heart catheterization which demonstrated 95% stenosis of the mid LAD, he did undergo stenting of this vessel. He also had an decreased ejection fraction of 40%. He does have a history of ADHD and hypertension. He was noted to have a decreased EF of 35-40%, echo from 03/03 demonstrated and EF of 55%. Since going on medication his ejection fraction has improved to 60% at last evaluation in January 2023 together with a normal stress test at a high workload. He denies chest, arm, jaw, or neck discomfort. He denies palpitations. He denies bilateral lower extremity edema. He denies claudication. He denies shortness of breath with activity, shortness of breath at rest, orthopnea, or PND. He denies chronic cough. He denies significant, sudden weight gain. He states occasional lightheadedness when he stands too quickly. He denies dizziness, near- syncope, or syncope. He denies blood in urine, blood in stool, or epistaxis. He denies fever with chills. He denies myalgia. He denies fatigue. His exercise level has remained stable. Intake Vital Signs 03/24/23 09:00 03/21/24 08:07 03/22/24 08:30 Height 5 ft 6 in 5 ft 6 in 5 ft 6 in Weight: 155 lb BMI 25.0 BP 117/67 Blood Pressure Location Lt brachial Position Sitting Respiration 16 Pulse 62 Pulse Source NIBP Intake Visit Reasons: 1 Y FU Business Line Manager Required: No Is patient in pain?: No Allergies ketorolac tromethamine (From Toradol) Allergy (Verified 03/22/24 08:37) Shortness of breath pollen extracts Allergy (Verified 03/22/24 08:37) Unknown Sulfa (Sulfonamide Antibiotics) Allergy (Verified 03/22/24 08:37) Swelling tolmetin sodium (From Tolectin) Allergy (Verified 03/22/24 08:37) Hives tetracycline (Tetracycline) Adverse Reaction (Verified 03/22/24 08:37) Other Medications ???Medication ???Instructions ???Recorded ???Confirmed ???Type multivitamin with folic acid 400 1 tab PO DAILY 01/01/14 03/22/24 History mcg tablet methylphenidate HCl 20 mg tablet 20 mg PO BID 11/05/20 03/22/24 History (Ritalin) prasterone (dhea) 25 mg capsule 25 mg PO DAILY 11/05/20 03/22/24 History aspirin 81 mg capsule 81 mg PO DAILY #30 caps 11/10/20 03/22/24 Rx tadalafil 20 mg tablet 20 mg PO DAILY PRN 12/04/20 03/22/24 History nitroglycerin 0.4 mg sublingual 0.4 mg sublingual Q5-15M PRN chest 12/08/21 03/22/24 Rx tablet (Nitrostat) pain #25 tabs omeprazole 40 mg capsule,delayed 40 mg PO DAILY gerd 12/08/21 03/22/24 History release folic acid 1 mg tablet 2 mg PO DAILY 02/21/23 03/22/24 History methotrexate sodium 2.5 mg tablet 12.5 mg PO QWEEK 02/21/23 03/22/24 History prednisone 10 mg tablet 10 mg PO DAILY PRN 02/21/23 03/22/24 History oxycodone-acetaminophe n 7.5 mg-325 1 tab PO TID PRN 03/24/23 03/22/24 History mg tablet rosuvastatin 40 mg tablet 40 mg PO DAILY 03/24/23 03/22/24 History testosterone topical DAILY 03/24/23 03/22/24 History lisinopril 5 mg tablet 5 mg PO DAILY #90 tabs 05/16/23 03/22/24 Rx hydroxychloroquine 200 mg tablet 200 mg PO DAILY 09/01/23 03/22/24 History (Plaquenil) metoprolol succinate 25 mg 25 mg PO DAILY #90 tabs 02/28/24 03/22/24 Rx tablet,extended release 24 hr duloxetine 60 mg capsule,delayed 60 mg PO QDAY 03/21/24 03/22/24 History release Ejection fraction %: 60 Have you fallen in the past year?: No PFSH Medical History (Updated 03/22/24 @ 08:51 by Cody Ryder 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, 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) Ischemic cardiomyopathy Tear of right rotator cuff Elevated serum creatinine Anemia Foraminal stenosis of cervical region Rotator cuff tendonitis Inflammation of joint of right shoulder region Right shoulder pain Tear of medial meniscus of left knee Effusion of knee joint right Essential hypertension Anterior myocardial infarction (11/09/20) Atherosclerotic heart disease of [place] coronary artery without angina pectoris ADHD Mechanical pain of left knee Bunion of great toe of right foot Hammer toe of right foot GERD (gastroesophageal reflux disease) 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 Normal [facility] Knee 3 Viewson 03-21-2024 Knee 3 Views [facility] [address] [place] [address] Knee 3 Views MR#: [id number] Acct: [id number] Name: VAUGHN DINERO Rep #: [id number] : 1955 M 68 From: Marky Cooper MD PCP: Dr. True Ibarra DO Status: DEP AMB Study: Knee 3 Views Date of Exam: 03/21/24 Exam# [id number] Ordering Dr: Reginaldo Blank DO [id number] STUDY: X-RAY - RIGHT KNEE REASON FOR EXAM: Male, 68 years old. Pain. Patient had total in 2019, patient still has pain. TECHNIQUE: 3 views of the right knee. COMPARISON: Right knee radiographs dated 11/21/2023. FINDINGS: Again seen is a right total knee arthroplasty with patellar resurfacing. The orthopedic hardware components are intact. There is no periprosthetic fracture. Normal proximal tibiofibular articulation. RAD/Knee 3 Views IMPRESSION: Right total knee arthroplasty, with no periprosthetic fracture. Electronically Signed: Marky Cooper MD at 15:41 EST , CC: Dr. Reginaldo Blank DO; Dr. True Ibarra DO Supervisor Ride Assembly: Signed Normal [facility] Orthopedic Visit Reporton Orthopedic Visit Report [facility] [address] [place] [address] [address] [place] [address] OFFICE VISIT Date of Service: 03/21/24 MR#: [id number] Acct: [id number] Name: VAUGHN DINERO Rep #: [id number] : 1955 Provider: Dr. Reginaldo marie DO Age/Sex: 68/M Location: [facility] Status: Signed Intake Vital Signs 09/01/23 14:57 03/21/24 08:07 Height 5 ft 6 in 5 ft 6 in Weight: 155 lb 6 oz BMI 25.0 Intake Visit Reasons: RIGHT KNEE Chief Complaint: Right Knee Pain Accompanied by: Self Is patient in pain?: Yes Pain scale (1-10): 6 Allergies ketorolac tromethamine (From Toradol) Allergy (Verified 03/21/24 08:12) Shortness of breath pollen extracts Allergy (Verified 03/21/24 08:12) Unknown Sulfa (Sulfonamide Antibiotics) Allergy (Verified 03/21/24 08:12) Swelling tolmetin sodium (From Tolectin) Allergy (Verified 03/21/24 08:12) Hives tetracycline (Tetracycline) Adverse Reaction (Verified 03/21/24 08:12) Other Medications ???Medication ???Instructions ???Recorded ???Confirmed ???Type multivitamin with folic acid 400 1 tab PO DAILY 01/01/14 03/21/24 History mcg tablet methylphenidate HCl 20 mg tablet 20 mg PO BID 11/05/20 03/21/24 History (Ritalin) prasterone (dhea) 25 mg capsule 25 mg PO DAILY 11/05/20 03/21/24 History aspirin 81 mg capsule 81 mg PO DAILY #30 caps 11/10/20 03/21/24 Rx tadalafil 20 mg tablet 20 mg PO DAILY PRN 12/04/20 03/21/24 History nitroglycerin 0.4 mg sublingual 0.4 mg sublingual Q5-15M PRN chest 12/08/21 03/21/24 Rx tablet (Nitrostat) pain #25 tabs omeprazole 40 mg capsule,delayed 40 mg PO DAILY gerd 12/08/21 03/21/24 History release folic acid 1 mg tablet 2 mg PO DAILY 02/21/23 03/21/24 History methotrexate sodium 2.5 mg tablet 12.5 mg PO QWEEK 02/21/23 03/21/24 History prednisone 10 mg tablet 10 mg PO DAILY PRN 02/21/23 03/21/24 History oxycodone-acetaminophe n 7.5 mg-325 1 tab PO TID PRN 03/24/23 03/21/24 History mg tablet rosuvastatin 40 mg tablet 40 mg PO DAILY 03/24/23 03/21/24 History testosterone topical DAILY 03/24/23 03/21/24 History lisinopril 5 mg tablet 5 mg PO DAILY #90 tabs 05/16/23 03/21/24 Rx hydroxychloroquine 200 mg tablet 200 mg PO DAILY 09/01/23 03/21/24 History (Plaquenil) metoprolol succinate 25 mg 25 mg PO DAILY #90 tabs 02/28/24 03/21/24 Rx tablet,extended release 24 hr duloxetine 60 mg capsule,delayed 60 mg PO QDAY 03/21/24 03/21/24 History release Have you fallen in the past year?: No PFSH Medical History Tear of right rotator cuff Elevated serum creatinine Anemia Foraminal stenosis of cervical region Rotator cuff tendonitis Inflammation of joint of right shoulder region Right shoulder pain Tear of medial meniscus of left knee Effusion of knee joint right Essential hypertension Anterior myocardial infarction (11/09/20) Atherosclerotic heart disease of [place] coronary artery without angina pectoris ADHD Mechanical pain of left knee Bunion of great toe of right foot Hammer toe of right foot GERD (gastroesophageal reflux disease) 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 Back problem Arthritis Osteoarthritis, multiple sites Surgical History History of right shoulder replacement Previous back surgery History of lumbar spinal fusion History of surgery on left wrist ( 04/2021) History of fusion of cervical spine History of total right knee replacement History of coronary artery stent placement (11/09/20) History of knee surgery Status post reverse total shoulder replacement S/P hernia repair s/p feet s/p hands s/p forearms s/p elbows s/p shoulders s/p neck Family History Mother Lung cancer Father Cancer bladder Depression Emphysema lung Sister Pacemaker Social History household members: spouse Smoking Status: Former smoker alcohol intake: never substance use type: does not use HPI RIGHT KNEE Details: This documentation accurately reflects the service provided and the decisions made by me, Dr. Reginaldo Blank, DO 03/21/24 0749. Part of today???s visit was documented by Leann MELISSA, acting as scribe. VAUGHN DINERO is a 68 year old M here today for right knee pain. Patient rates his knee pain a 6/10 and states at night and in the mornings it seems to be worse. He states it is really bothering him when he is driving. He states if he moves the knee to the right the pain is worse but when he moves it back or fully flex the knee it will feel better. He states it hurts to sleep on his right side at night. He states at night he can barely walk because the knee is so painful. He de (more content not included)... Normal [facility] CBC W/Diff, Automatedon 01-12 Absolute Lymph 1.04 X10 3/uL Normal 0.83-4.51 [facility] Comment on above: Performed By: #### L 100.0100, L500.4050 ####[facility] [address] [place], [address] Absolute Neut 2.0 X10 3/uL Normal 2.0-7.7 [facility] Comment on above: Performed By: #### L 100.0100, L500.4050 ####[facility] [address] [place], [address] Basophils/100 WBC (Bld) 0.9 % Normal 0-1 [facility] Comment on above: Performed By: #### L 100.0100, L500.4050 ####[facility] [address] [place], [address] Eosinophils/100 WBC (Bld) 2.0 % Normal 0-5 [facility] Comment on above: Performed By: #### L 100.0100, L500.4050 ####[facility] [address] [place], [address] Erythrocyte distribution width (RBC) [Ratio] 14.3 % Normal 11.6-14.6 [facility] Comment on above: Performed By: #### L 100.0100, L500.4050 ####[facility] [address] [place], [address] Hematocrit (Bld) [Volume fraction] 36.3 % Low 40-54 [facility] Comment on above: Performed By: #### L 100.0100, L500.4050 ####[facility] [address] [place], [address] Hemoglobin (Bld) [Mass/Vol] 12.4 g/dL Low 13.0-16.5 [facility] Comment on above: Performed By: #### L 100.0100, L500.4050 ####[facility] [address] [place], [address] IG% 0.300 Normal 0.0-0.9 [facility] Comment on above: Result Comment: IG% - Immature Granulocytes (promyelocytes, myelocytes and metamyelocytes) > 1% indicates that a LEFT SHIFT is Present. Performed By: #### L 100.0100, L500.4050 ####[facility] [address] [place], [address] Lymphocytes/100 WBC (Bld) 29.5 % Normal 19-41 [facility] Comment on above: Performed By: #### L 100.0100, L500.4050 ####[facility] [address] [place], [address] MCH (RBC) [Entitic mass] 30.4 pg Normal 27.0-32.0 [facility] Comment on above: Performed By: #### L 100.0100, L500.4050 ####[facility] [address] [place], [address] MCHC (RBC) [Mass/Vol] 34.2 g/dL Normal 32-36 [facility] Comment on above: Performed By: #### L 100.0100, L500.4050 ####[facility] [address] [place], [address] MCV (RBC) [Entitic vol] 89.0 fL Normal 80-94 [facility] Comment on above: Performed By: #### L 100.0100, L500.4050 ####[facility] [address] [place], [address] Monocytes/100 WBC (Bld) 11.4 % High 0-10 [facility] Comment on above: Performed By: #### L 100.0100, L500.4050 ####[facility] [address] [place], [address] Neutrophils/100 WBC (Bld) 55.9 % Normal 47-70 [facility] Comment on above: Performed By: #### L 100.0100, L500.4050 ####[facility] [address] [place], [address] Nucleated RBC (Bld) [#/Vol] 0 10*3/uL Normal 0-5 [facility] Comment on above: Performed By: #### L 100.0100, L500.4050 ####[facility] [address] [place], [address] Platelet mean volume (Bld) [Entitic vol] 9.7 fL Normal 6.2-12.0 [facility] Comment on above: Performed By: #### L 100.0100, L500.4050 ####[facility] [address] [place], [address] Platelets (Bld) [#/Vol] 174 10*3/uL Normal 150-450 [facility] Comment on above: Performed By: #### L 100.0100, L500.4050 ####[facility] [address] [place], [address] RBC (Bld) [#/Vol] 4.08 10*6/uL Low 4.6-6.2 [facility] Comment on above: Performed By: #### L 100.0100, L500.4050 ####[facility] [address] [place], [address] RDW SD 45.6 fl High 35.1-43.9 [facility] Comment on above: Performed By: #### L 100.0100, L500.4050 ####[facility] [address] [place], [address] WBC (Bld) [#/Vol] 3.5 10*3/uL Low 4.4-11.0 [facility] Comment on above: Performed By: #### L 100.0100, L500.4050 ####[facility] [address] [place], [address] Comprehensive Metabolic Prof [facility] 01-31-2024 Albumin [Mass/Vol] 3.6 g/dL Normal 3.2-5.0 [facility] Comment on above: Performed By: #### L 100.0100, L500.4050 ####[facility] [address] [place], [address] Albumin/Globulin [Mass ratio] 1.3 {ratio} Normal 0.9-2.4 [facility] Comment on above: Performed By: #### L 100.0100, L500.4050 ####[facility] [address] [place], [address] ALK P 66 U/L Normal 45-117 [facility] Comment on above: Performed By: #### L 100.0100, L500.4050 ####[facility] [address] [place], [address] ALT [Catalytic activity/Vol] 36 U/L Normal 16-61 [facility] Comment on above: Performed By: #### L 100.0100, L500.4050 ####[facility] [address] [place], [address] AST [Catalytic activity/Vol] 36 U/L Normal 15-37 [facility] Comment on above: Performed By: #### L 100.0100, L500.4050 ####[facility] [address] [place], [address] Bilirubin [Mass/Vol] 0.60 mg/dL Normal 0.20-1.[address] [facility] Comment on above: Result Comment: For patients on eltrombopag therapy, use of Dimension [place] TBIL is not recommended. Performed By: #### L 100.0100, L500.4050 ####[facility] [address] [place], [address] BUN/CRE 15.4 RATIO Normal 10-20 [facility] Comment on above: Performed By: #### L 100.0100, L500.4050 ####[facility] [address] [place], [address] CA,Total 8.6 mg/dL Normal 8.5-10.1 [facility] Comment on above: Performed By: #### L 100.0100, L500.4050 ####[facility] [address] [place], [address] Chloride [Moles/Vol] 105 mmol/L Normal 98-[address] [facility] Comment on above: Performed By: #### L 100.0100, L500.4050 ####[facility] [address] [place], [address] CO2 [Moles/Vol] 27.0 mmol/L Normal 21.0-32.0 [facility] Comment on above: Performed By: #### L 100.0100, L500.4050 ####[facility] [address] [place], [address] Creatinine [Mass/Vol] 1.04 mg/dL Normal 0.70-1.30 [facility] Comment on above: Result Comment: The validity of the calculated GFR GFRAA in patients over 70 years has not been determined. Clinical correlation is essential. Performed By: #### L 100.0100, L500.4050 ####[facility] [address] [place], [address] EST GFR - AA 91 mL/min Normal >60 [facility] Comment on above: Result Comment: Afri can Qatari GFR Calc Performed By: #### L 100.0100, L500.4050 ####[facility] [address] [place], [address] GAP 5 Normal 5-15 [facility] Comment on above: Performed By: #### L 100.0100, L500.4050 ####[facility] [address] [place], [address] GFR/1.73 sq M.predicted among non-blacks MDRD (S/P/Bld) [Vol rate/Area] 75 mL/min/{1.73_m2} Normal >60 [facility] Comment on above: Result Comment: Non- GFR Calc Performed By: #### L 100.0100, L500.4050 ####[facility] [address] [place], [address] Globulin (S) [Mass/Vol] 2.7 g/dL Normal 2.2-4.2 [facility] Comment on above: Performed By: #### L 100.0100, L500.4050 ####[facility] [address] [place], [address] Glucose [Mass/Vol] 116 mg/dL High 74-106 [facility] Comment on above: Result Comment: Fast ing Glucose result from 100 to 125 mg/dL suggests IMPAIRED HOMEOSTASIS per A.D.A. criteria. Performed By: #### L 100.0100, L500.4050 ####[facility] [address] [place], [address] Potassium [Moles/Vol] 3.7 mmol/L Normal 3.5-5.1 [facility] Comment on above: Performed By: #### L 100.0100, L500.4050 ####[facility] [address] [place], [address] Sodium [Moles/Vol] 138 mmol/L Normal 136-145 [facility] Comment on above: Performed By: #### L 100.0100, L500.4050 ####[facility] [address] [place], [address] T PROT 6.3 g/dL Low 6.4-8.2 [facility] Comment on above: Performed By: #### L 100.0100, L500.4050 ####[facility] [address] [place], [address] Urea nitrogen [Mass/Vol] 16 mg/dL Normal 7-18 [facility] Comment on above: Performed By: #### L 100.0100, L500.4050 ####[facility] [address] [place], [address] Ferritin measurementOrdered By: Reginaldo Nava on 09-01-2023 Ferritin [Mass/Vol] 76 ng/mL 26-388 [facility] Folic acid measurementOrdere d By: Reginaldo Nava on 09-01-2023 Folate 67.70 ng/mL High 3.1-55.4 [facility] Iron (Unsp spec) [Mass/Mass] Ordered By: Reginaldo Nava on 09-01-2023 Iron [Mass/Vol] 89 ug/dL 65-175 [facility] Iron measurement (mass/mass) Ordered By: Reginaldo Nava on 09-01-2023 Iron (Unsp spec) [Mass/Mass] 89 ug/dL 65-175 [facility] Iron saturation [Mass fracti on]Ordered By: Reginaldo Nava on 09-01-2023 Iron Saturation 28.3 % 15.0-55.0 [facility] Serum or plasma iron saturat ion measurement (mass fraction)Ordered By: Reginaldo Nava on 09-01-2023 Iron saturation [Mass fraction] 28.3 % 15.0-55.0 [facility] TIBCOrdered By: Reginaldo Nava on 09-01-2023 Total Iron Binding Capacity 315 ug/dL 250-450 [facility] Vitamin B12 measurementOrder ed By: Reginaldo Nava on 09-01-2023 Cobalamin (Vitamin B12) [Mass/Vol] 500 pg/mL 211-911 [facility] Absolute lymphocyte countOrd ered By: Holly Arzola on 07-06-2023 Lymphocytes Auto (Unsp spec) [#/Vol] 0.48 10*3/uL 0.83-4.51 [facility] Automated lymphocyte count a s percentage of total leukocytesOrdered By: Holly Arzola on 07-06-2023 Lymphocytes/100 WBC Auto (Unsp spec) 11.2 % 19-41 [facility] Basophil percentageOrdered B y: Holly Arzola on 07-06-2023 Basophils/100 WBC (Bld) 0.5 % 0-1 [facility] Bilirubin [Mass/Vol] 0.30 mg/dL 0.20-1.[address] [facility] Comment on above: For patients on eltr ombopag therapy, use of Dimension [place] TBIL is not recommended. Chloride [Moles/Vol] 102 mmol/L 98-[address] [facility] Eosinophils/100 WBC (Bld) 0.5 % 0-5 [facility] Glucose [Mass/Vol] 147 mg/dL 74-106 [facility] Comment on above: Fasting Glucose resu lt greater than or equal to 126 mg/dL suggests DIABETES MELLITUS per A.D.A. criteria. Hemoglobin (Bld) [Mass/Vol] 12.2 g/dL 13.0-16.5 [facility] Monocytes/100 WBC (Bld) 4.0 % 0-10 [facility] Neutrophils (Bld) [#/Vol] 3.6 10*3/uL 2.0-7.7 [facility] Neutrophils/100 WBC (Bld) 83.6 % 47-70 [facility] Potassium [Moles/Vol] 4.2 mmol/L 3.5-5.1 [facility] Protein [Mass/Vol] 6.8 g/dL 6.4-8.2 [facility] Sodium [Moles/Vol] 135 mmol/L 136-145 [facility] WBC (Bld) [#/Vol] 4.3 10*3/uL 4.4-11.0 [facility] Determination of erythrocyte mean corpuscular volume (MCV)Ordered By: Holly Arzola on 07-06-2023 MCV (RBC) [Entitic vol] 92.4 fL 80-94 [facility] Erythrocyte distribution wid th ratioOrdered By: Holly Arzola on 07-06-2023 Erythrocyte distribution width (RBC) [Ratio] 13.7 % 11.6-14.6 [facility] Erythrocyte distribution wid th standard deviationOrdered By: Holly Arzola on 07-06-2023 Erythrocyte distribution width (RBC) [Entitic vol] 46.3 fL 35.1-43.9 [facility] Hematocrit Auto (Bld) [Volum e fraction]Ordered By: Holly Arzola on 07-06-2023 Hematocrit (Bld) [Volume fraction] 36.3 % 40-54 [facility] Immature granulocytes/100 WB C Auto (Bld)Ordered By: Holly Arzola on 07-06-2023 Immature granulocytes/100 WBC (Bld) 0.200 % 0.0-0.9 [facility] Comment on above: IG% - Immature Granu locytes (promyelocytes, myelocytes and metamyelocytes) > 1% indicates that a LEFT SHIFT is Present. Laboratory - Chemistry and C hemistry - challengeOrdered By: Holly Arzola on 07-06-2023 Albumin/Globulin [Mass ratio] 1.2 {ratio} 0.9-2.4 [facility] ALP [Catalytic activity/Vol] 65 U/L 45-117 [facility] ALT [Catalytic activity/Vol] 31 U/L 16-61 [facility] CO2 [Moles/Vol] 28.0 mmol/L 21.0-32.0 [facility] Globulin (S) [Mass/Vol] 3.1 g/dL 2.2-4.2 [facility] Urea nitrogen/Creatinine [Mass ratio] 10.9 mg/mg 10-20 [facility] Laboratory - Hematology and Cell countsOrdered By: Holly Arzola on 07-06-2023 MCH (RBC) [Entitic mass] 31.0 pg 27.0-32.0 [facility] MCHC (RBC) [Mass/Vol] 33.6 g/dL 32-36 [facility] Nucleated RBC/100 WBC (Bld) [Ratio] 0 % 0-5 [facility] Platelet mean volume (Bld) [Entitic vol] 9.7 fL 6.2-12.0 [facility] Platelets (Bld) [#/Vol] 238 10*3/uL 150-450 [facility] No Panel InformationOrdered By: Holly Arzola on 07-06-2023 Estimated GFR (MDRD) Amer 85 mL/min >60 [facility] Comment on above: GFR Calc Estimated GFR (MDRD) Non-Af Amer 71 mL/min >60 [facility] Comment on above: Non- GFR Calc RBC Auto (Bld) [#/Vol]Ordere d By: Holly Arzola on 07-06-2023 RBC (Bld) [#/Vol] 3.93 10*6/uL 4.6-6.2 [facility] Serum or plasma calcium ioana urement (mass/volume)Ordered By: Holly Arzola on 07-06-2023 Calcium [Mass/Vol] 9.2 mg/dL 8.5-10.1 [facility] Serum or plasma creatinine m easurement (mass/volume)Ordered By: Holly Arzola on 07-06-2023 Creatinine [Mass/Vol] 1.10 mg/dL 0.70-1.30 [facility] Comment on above: The validity of the calculated GFR & GFRAA in patients over 70 years has not been determined. Clinical correlation is essential. Serum or plasma urea nitroge n measurement (mass/volume)Ordered By: Holly Arzola on 07-06-2023 Urea nitrogen [Mass/Vol] 12 mg/dL 7-18 [facility] Thin prep Papanicolaou smear with manual screeningOrdered By: Holly Arzola on 07-06-2023 Thin prep Papanicolaou smear with manual screening 3.7 g/dL 3.2-5.0 [facility] Thin prep Papanicolaou smear with manual screening 28 U/L 15-37 [facility] Thin prep Papanicolaou smear with manual screening 5 5-15 [facility] Absolute lymphocyte countOrd ered By: Holly Arzola on 05-10-2023 Lymphocytes Auto (Unsp spec) [#/Vol] 0.51 10*3/uL 0.83-4.51 [facility] Automated lymphocyte count a s percentage of total leukocytesOrdered By: Holly Arzola on 05-10-2023 Lymphocytes/100 WBC Auto (Unsp spec) 10.4 % 19-41 [facility] Basophil percentageOrdered B y: Holly Arzola on 05-10-2023 Basophils/100 WBC (Bld) 0.2 % 0-1 [facility] Bilirubin [Mass/Vol] 0.60 mg/dL 0.20-1.[address] [facility] Comment on above: For patients on eltr ombopag therapy, use of Dimension [place] TBIL is not recommended. Chloride [Moles/Vol] 107 mmol/L 98-[address] [facility] Eosinophils/100 WBC (Bld) 0.0 % 0-5 [facility] Glucose [Mass/Vol] 133 mg/dL 74-106 [facility] Comment on above: Fasting Glucose resu lt greater than or equal to 126 mg/dL suggests DIABETES MELLITUS per A.D.A. criteria. Hemoglobin (Bld) [Mass/Vol] 12.4 g/dL 13.0-16.5 [facility] Monocytes/100 WBC (Bld) 2.7 % 0-10 [facility] Neutrophils (Bld) [#/Vol] 4.2 10*3/uL 2.0-7.7 [facility] Neutrophils/100 WBC (Bld) 86.5 % 47-70 [facility] Potassium [Moles/Vol] 4.2 mmol/L 3.5-5.1 [facility] Protein [Mass/Vol] 7.1 g/dL 6.4-8.2 [facility] Sodium [Moles/Vol] 138 mmol/L 136-145 [facility] WBC (Bld) [#/Vol] 4.9 10*3/uL 4.4-11.0 [facility] Determination of erythrocyte mean corpuscular volume (MCV)Ordered By: Holly Arzola on 05-10-2023 MCV (RBC) [Entitic vol] 88.8 fL 80-94 [facility] Erythrocyte distribution wid th ratioOrdered By: [facility] Dariusz on 05-10-2023 Erythrocyte distribution width (RBC) [Ratio] 15.2 % 11.6-14.6 [facility] Erythrocyte distribution wid th standard deviationOrdered By: Holly Arzola on 05-10-2023 Erythrocyte distribution width (RBC) [Entitic vol] 48.6 fL 35.1-43.9 [facility] Hematocrit Auto (Bld) [Volum e fraction]Ordered By: Holly Arzola on 05-10-2023 Hematocrit (Bld) [Volume fraction] 36.6 % 40-54 [facility] Immature granulocytes/100 WB C Auto (Bld)Ordered By: [facility] Dariusz on 05-10-2023 Immature granulocytes/100 WBC (Bld) 0.200 % 0.0-0.9 [facility] Comment on above: IG% - Immature Granu locytes (promyelocytes, myelocytes and metamyelocytes) > 1% indicates that a LEFT SHIFT is Present. Laboratory - Chemistry and C hemistry - challengeOrdered By: Holly Arzola on 05-10-2023 Albumin/Globulin [Mass ratio] 1.3 {ratio} 0.9-2.4 [facility] ALP [Catalytic activity/Vol] 55 U/L 45-117 [facility] ALT [Catalytic activity/Vol] 26 U/L 16-61 [facility] CO2 [Moles/Vol] 25.0 mmol/L 21.0-32.0 [facility] Globulin (S) [Mass/Vol] 3.1 g/dL 2.2-4.2 [facility] Urea nitrogen/Creatinine [Mass ratio] 18.3 mg/mg 10-20 [facility] Laboratory - Hematology and Cell countsOrdered By: Holly Arzola on 05-10-2023 MCH (RBC) [Entitic mass] 30.1 pg 27.0-32.0 [facility] MCHC (RBC) [Mass/Vol] 33.9 g/dL 32-36 [facility] Nucleated RBC/100 WBC (Bld) [Ratio] 0 % 0-5 [facility] Platelet mean volume (Bld) [Entitic vol] 9.2 fL 6.2-12.0 [facility] Platelets (Bld) [#/Vol] 190 10*3/uL 150-450 [facility] No Panel InformationOrdered By: Holly Arzola on 05-10-2023 Estimated GFR (MDRD) Amer 97 mL/min >60 [facility] Comment on above: GFR Calc Estimated GFR (MDRD) Non-Af Amer 80 mL/min >60 [facility] Comment on above: Non- GFR Calc RBC Auto (Bld) [#/Vol]Ordere d By: Holly Arzola on 05-10-2023 RBC (Bld) [#/Vol] 4.12 10*6/uL 4.6-6.2 [facility] Serum or plasma calcium ioana urement (mass/volume)Ordered By: Holly Arzola on 05-10-2023 Calcium [Mass/Vol] 9.2 mg/dL 8.5-10.1 [facility] Serum or plasma creatinine m easurement (mass/volume)Ordered By: Holly Arzola on 05-10-2023 Creatinine [Mass/Vol] 0.98 mg/dL 0.70-1.30 [facility] Comment on above: The validity of the calculated GFR & GFRAA in patients over 70 years has not been determined. Clinical correlation is essential. Serum or plasma urea nitroge n measurement (mass/volume)Ordered By: Holly Arzola on 05-10-2023 Urea nitrogen [Mass/Vol] 18 mg/dL 7-18 [facility] Thin prep Papanicolaou smear with manual screeningOrdered By: Holly Arzola on 05-10-2023 Thin prep Papanicolaou smear with manual screening 4.0 g/dL 3.2-5.0 [facility] Thin prep Papanicolaou smear with manual screening 22 U/L 15-37 [facility] Thin prep Papanicolaou smear with manual screening 6 5-15 [facility] Absolute lymphocyte countOrd ered By: Reginaldo Elijah on 03-15-2023 Lymphocytes Auto (Unsp spec) [#/Vol] 1.64 10*3/uL 0.83-4.51 [facility] Basophil percentageOrdered B y: Reginaldo Nava on 03-15-2023 Basophils/100 WBC (Bld) 0.6 % 0-1 [facility] Bilirubin [Mass/Vol] 0.50 mg/dL 0.20-1.[address] [facility] Comment on above: For patients on eltr ombopag therapy, use of Dimension [place] TBIL is not recommended. Chloride [Moles/Vol] 105 mmol/L 98-[address] [facility] Eosinophils/100 WBC (Bld) 2.1 % 0-5 [facility] Glucose [Mass/Vol] 94 mg/dL 74-106 [facility] LDH [Catalytic activity/Vol] 281 U/L 87-241 [facility] Neutrophils (Bld) [#/Vol] 2.7 10*3/uL 2.0-7.7 [facility] Neutrophils/100 WBC (Bld) 55.4 % 47-70 [facility] Potassium [Moles/Vol] 4.1 mmol/L 3.5-5.1 [facility] Protein [Mass/Vol] 7.3 g/dL 6.4-8.2 [facility] Sodium [Moles/Vol] 140 mmol/L 136-145 [facility] Testosterone [Mass/Vol] 405 ng/dL 264-916 [facility] Comment on above: Adult male reference interval is based on a population ofhealthy nonobese males (BMI <30) between 19 and 39 yearsold. Aniceto et.al. JCEM 2017,102;3211-5037. PMID:[id number]. WBC (Bld) [#/Vol] 4.8 10*3/uL 4.4-11.0 [facility] Blood erythrocytes count (nu mber/volume)Ordered By: Reginaldo Nava on 03-15-2023 RBC (Bld) [#/Vol] 4.80 10*6/uL 4.6-6.2 [facility] Blood hemoglobin measurement (mass/volume)Ordered By: Reginaldo Nava on 03-15-2023 Hemoglobin (Bld) [Mass/Vol] 13.5 g/dL 13.0-16.5 [facility] Blood lymphocytes/100 leukoc ytesOrdered By: Reginaldo Nava on 03-15-2023 Lymphocytes/100 WBC (Bld) 34.2 % 19-41 [facility] Blood monocytes/100 leukocyt esOrdered By: Reginaldo Nava on 03-15-2023 Monocytes/100 WBC (Bld) 7.5 % 0-10 [facility] Blood platelet mean volumeOr dered By: Reginaldo Nava on 03-15-2023 Platelet mean volume (Bld) [Entitic vol] 9.6 fL 6.2-12.0 [facility] Determination of erythrocyte mean corpuscular volume (MCV)Ordered By: Reginaldo Nava on 03-15-2023 MCV (RBC) [Entitic vol] 85.0 fL 80-94 [facility] Free testosterone percentage Ordered By: Reginaldo Nava on 03-15-2023 Testosterone Free/Testosterone.total [Mass fraction] 2.33 % 1.50-4.20 [facility] Comment on above: Performed at: [facility] [place] [address] [id number] Director: Jose Angel Marks PhD, Phone: [phone] at: [facility] [address] [id number] Director: Susan Rojas MD, Phone: [phone] Hematocrit Auto (Bld) [Volum e fraction]Ordered By: Reginaldo Nava on 03-15-2023 Hematocrit (Bld) [Volume fraction] 40.8 % 40-54 [facility] INR in Blood by Coagulation assayOrdered By: Reginaldo Nava on 03-15-2023 INR Coag (Bld) [Relative time] 0.9 {INR} [facility] Iron measurement (mass/mass) Ordered By: Reginaldo Nava on 03-15-2023 Iron (Unsp spec) [Mass/Mass] 75 ug/dL 65-175 [facility] Laboratory - Chemistry and C hemistry - challengeOrdered By: Reginaldo Nava on 03-15-2023 ALP [Catalytic activity/Vol] 56 U/L 45-117 [facility] ALT [Catalytic activity/Vol] 38 U/L 16-61 [facility] CO2 [Moles/Vol] 29.0 mmol/L 21.0-32.0 [facility] Cobalamin (Vitamin B12) [Mass/Vol] 595 pg/mL 211-911 [facility] Globulin (S) [Mass/Vol] 3.2 g/dL 2.2-4.2 [facility] Urea nitrogen/Creatinine [Mass ratio] 12.5 mg/mg 10-20 [facility] Laboratory - CoagulationOrde red By: Reginaldo Nava on 03-15-2023 aPTT Coag (Bld) [Time] 25.9 s 24.1-36.2 [facility] PT Coag (PPP) [Time] 12.1 s 11.7-14.[address] [facility] Laboratory - Hematology and Cell countsOrdered By: Reginaldo Nava on 03-15-2023 Erythrocyte distribution width (RBC) [Entitic vol] 48.4 fL 35.1-43.9 [facility] Erythrocyte distribution width (RBC) [Ratio] 15.8 % 11.6-14.6 [facility] Immature granulocytes/100 WBC (Bld) 0.200 % 0.0-0.9 [facility] Comment on above: IG% - Immature Granu locytes (promyelocytes, myelocytes and metamyelocytes) > 1% indicates that a LEFT SHIFT is Present. MCH (RBC) [Entitic mass] 28.1 pg 27.0-32.0 [facility] Nucleated RBC/100 WBC (Bld) [Ratio] 0 % 0-5 [facility] MCHC Auto (RBC) [Mass/Vol]Or dered By: Reginaldo Nava on 03-15-2023 MCHC (RBC) [Mass/Vol] 33.1 g/dL 32-36 [facility] No Panel InformationOrdered By: Reginaldo Nava on 03-15-2023 Estimated GFR (MDRD) Amer 91 mL/min >60 [facility] Comment on above: GFR Calc Estimated GFR (MDRD) Non-Af Amer 75 mL/min >60 [facility] - [place] Comment on above: Non- GFR Calc Total Iron Binding Capacity 363 ug/dL 250-450 [facility] [place] Platelets bldOrdered By: Jose Nava on 03-15-2023 Platelets (Bld) [#/Vol] 224 10*3/uL 150-450 [facility] [place] Serum or plasma albumin ioana urement (mass/volume)Ordered By: Reginaldo Nava on 03-15-2023 Albumin [Mass/Vol] 4.1 g/dL 3.2-5.0 [facility] Serum or plasma albumin/glob ulin mass ratioOrdered By: Reginaldo Nava on 03-15-2023 Albumin/Globulin [Mass ratio] 1.3 {ratio} 0.9-2.4 [facility] [place] Serum or plasma calcium ioana urement (mass/volume)Ordered By: Reginaldo Nava on 03-15-2023 Calcium [Mass/Vol] 8.7 mg/dL 8.5-10.1 [facility] Serum or plasma creatinine m easurement (mass/volume)Ordered By: Reginaldo Nava on 03-15-2023 Creatinine [Mass/Vol] 1.04 mg/dL 0.70-1.30 [facility] Comment on above: The validity of the calculated GFR & GFRAA in patients over 70 years has not been determined. Clinical correlation is essential. Serum or plasma ferritin merced surement (mass/volume)Ordered By: Reginaldo Nava on 03-15-2023 Ferritin [Mass/Vol] 63 ng/mL 26-388 [facility] Serum or plasma folate measu rement (mass/volume)Ordered By: Reginaldo Nava on 03-15-2023 Folate [Mass/Vol] 53.50 ng/mL 3.1-55.4 [facility] Serum or plasma iron saturat ion measurement (mass fraction)Ordered By: Reginaldo Nava on 03-15-2023 Iron saturation [Mass fraction] 20.7 % 15.0-55.0 [facility] [place] Serum or plasma testosterone free measurement (mass/volume)Ordered By: Reginaldo Nava on 03-15-2023 Testosterone Free [Mass/Vol] 9.44 ng/dL 5.00-21.00 [facility] [place] Serum or plasma urea nitroge n measurement (mass/volume)Ordered By: Reginaldo Nava on 03-15-2023 Urea nitrogen [Mass/Vol] 13 mg/dL 7-18 [facility] [place] Thin prep Papanicolaou smear with manual screeningOrdered By: Reginaldo Nava on 03-15-2023 Thin prep Papanicolaou smear with manual screening 32 U/L 15-37 [facility] [place] Thin prep Papanicolaou smear with manual screening 6 5-15 [facility] [place] Absolute lymphocyte countOrd ered By: Reginaldo Nava on 02-21-2023 Lymphocytes Auto (Unsp spec) [#/Vol] 1.31 10*3/uL 0.83-4.51 [facility] [place] Basophil percentageOrdered B y: Reginaldo Nava on 02-21-2023 Basophils/100 WBC (Bld) 0.9 % 0-1 [facility] Bilirubin [Mass/Vol] 0.50 mg/dL 0.20-1.[address] [facility] Comment on above: For patients on eltr ombopag therapy, use of Dimension [place] TBIL is not recommended. Chloride [Moles/Vol] 105 mmol/L 98-[address] [facility] Eosinophils/100 WBC (Bld) 2.7 % 0-5 [facility] [place] Glucose [Mass/Vol] 101 mg/dL 74-106 [facility] Comment on above: Fasting Glucose resu lt from 100 to 125 mg/dL suggests IMPAIRED HOMEOSTASIS per A.D.A. criteria. LDH [Catalytic activity/Vol] 251 U/L 87-241 [facility] [place] Neutrophils (Bld) [#/Vol] 1.6 10*3/uL 2.0-7.7 [facility] [place] Neutrophils/100 WBC (Bld) 48.7 % 47-70 [facility] [place] Potassium [Moles/Vol] 3.8 mmol/L 3.5-5.1 [facility] Protein [Mass/Vol] 7.1 g/dL 6.4-8.2 [facility] Sodium [Moles/Vol] 138 mmol/L 136-145 [facility] WBC (Bld) [#/Vol] 3.3 10*3/uL 4.4-11.0 [facility] Blood erythrocytes count (nu mber/volume)Ordered By: Reginaldo Nava on 02-21-2023 RBC (Bld) [#/Vol] 4.76 10*6/uL 4.6-6.2 [facility] Blood hemoglobin measurement (mass/volume)Ordered By: Reginaldo Nava on 02-21-2023 Hemoglobin (Bld) [Mass/Vol] 12.9 g/dL 13.0-16.5 [facility] [place] Blood lymphocytes/100 leukoc ytesOrdered By: Reginaldo Nava on 02-21-2023 Lymphocytes/100 WBC (Bld) 39.8 % 19-41 [facility] [place] Blood monocytes/100 leukocyt esOrdered By: Reginaldo Nava on 02-21-2023 Monocytes/100 WBC (Bld) 7.6 % 0-10 [facility] Blood platelet mean volumeOr dered By: Reginaldo Nava on 02-21-2023 Platelet mean volume (Bld) [Entitic vol] 8.9 fL 6.2-12.0 [facility] [place] Determination of erythrocyte mean corpuscular volume (MCV)Ordered By: Reginaldo Nava on 02-21-2023 MCV (RBC) [Entitic vol] 84.7 fL 80-94 [facility] Erythrocyte sedimentation ra teOrdered By: Reginaldo Nava on 02-21-2023 ESR (Bld) [Velocity] 5 mm/h 0-[address] [facility] Hematocrit Auto (Bld) [Volum e fraction]Ordered By: Reginaldo Nava on 02-21-2023 Hematocrit (Bld) [Volume fraction] 40.3 % 40-54 [facility] [place] INR in Blood by Coagulation assayOrdered By: Reginaldo Nava on 02-21-2023 INR Coag (Bld) [Relative time] 1.0 {INR} [facility] [place] Interpretation of serum or p lasma protein pattern by immunofixation (narrative resultOrdered By: Reginaldo Nava on 02-21-2023 Protein Fractions Immunofixation Xavi [Interp] Not Observed g/dL Not Observed [facility] [place] Iron measurement (mass/mass) Ordered By: Reginaldo Nava on 02-21-2023 Iron (Unsp spec) [Mass/Mass] 97 ug/dL 65-175 [facility] [place] Laboratory - Chemistry and C hemistry - challengeOrdered By: Reginaldo Nava on 02-21-2023 ALP [Catalytic activity/Vol] 52 U/L 45-117 [facility] [place] ALT [Catalytic activity/Vol] 36 U/L 16-61 [facility] [place] CO2 [Moles/Vol] 27.0 mmol/L 21.0-32.0 [facility] [place] Free T4 [Mass/Vol] 0.86 ng/dL 0.76-1.46 [facility] Urea nitrogen/Creatinine [Mass ratio] 11.0 mg/mg 10-20 [facility] [place] Laboratory - CoagulationOrde red By: Reginaldo Nava on 02-21-2023 aPTT Coag (Bld) [Time] 25.4 s 24.1-36.2 [facility] PT Coag (PPP) [Time] 13.0 s 11.7-14.[address] [facility] Laboratory - Hematology and Cell countsOrdered By: Reginaldo Nava on 02-21-2023 Erythrocyte distribution width (RBC) [Entitic vol] 47.6 fL 35.1-43.9 [facility] [place] Erythrocyte distribution width (RBC) [Ratio] 15.6 % 11.6-14.6 [facility] [place] Immature granulocytes/100 WBC (Bld) 0.300 % 0.0-0.9 [facility] [place] Comment on above: IG% - Immature Granu locytes (promyelocytes, myelocytes and metamyelocytes) > 1% indicates that a LEFT SHIFT is Present. MCH (RBC) [Entitic mass] 27.1 pg 27.0-32.0 [facility] [place] Nucleated RBC/100 WBC (Bld) [Ratio] 0 % 0-5 [facility] [place] MCHC Auto (RBC) [Mass/Vol]Or dered By: Reginaldo Nava on 02-21-2023 MCHC (RBC) [Mass/Vol] 32.0 g/dL 32-36 [facility] No Panel InformationOrdered By: Reginaldo Nava on 02-21-2023 Addendum Document Comment . [facility] [place] Comment on above: Protein electrophore sis scan will follow via computer,mail, or promotional marketing agent delivery. Estimated Creatinine Clearance Calc 61.86 ml/min [facility] [place] Estimated GFR (MDRD) Amer 79 mL/min >60 [facility] [place] Comment on above: GFR Calc Estimated GFR (MDRD) Non-Af Amer 65 mL/min >60 [facility] [place] Comment on above: Non- GFR Calc Free Lambda Light Chains, Quant 10.7 mg/L 5.7-26.3 [facility] [place] Thyroid Stimulating Hormone (TSH) 1.10 uIU/mL 0.358-3.74 [facility] [place] Total Iron Binding Capacity 382 ug/dL 250-450 [facility] [place] Platelets bldOrdered By: Jose Nava on 02-21-2023 Platelets (Bld) [#/Vol] 171 10*3/uL 150-450 [facility] [place] Serum [id number]-[id number] measu rement by electrophoresisOrdered By: Reginaldo Nava on 02-21-2023 Alpha 1 globulin Elph [Mass/Vol] 0.2 g/dL 0.0-0.4 [facility] [place] Alpha 1 globulin Elph [Mass/Vol] 0.6 g/dL 0.4-1.0 [facility] [place] Serum globulin measurement ( mass/volume)Ordered By: Reginaldo Nava on 02-21-2023 Globulin (S) [Mass/Vol] 2.5 g/dL 2.2-3.9 [facility] Serum immunoglobulin kappa l ight chains/immunoglobulin lambda light chains mass ratioOrdered By: Reginaldo Nava on 02-21-2023 Immunoglobulin light chains.kappa/Immunoglob ulin light chains.lambda (S) [Mass ratio] 1.35 0.26-1.65 [facility] [place] Comment on above: Performed at: [place] [id number] Director: Jose Angel Marks PhD, Phone: [phone] Serum or plasma IgA measurem ent (mass/volume)Ordered By: Reginaldo Nava on 02-21-2023 IgA [Mass/Vol] 188 mg/dL 61-437 [facility] [place] Serum or plasma IgG measurem ent (mass/volume)Ordered By: Reginaldo Nava on 02-21-2023 IgG [Mass/Vol] 797 mg/dL 603-1613 [facility] [place] Serum or plasma IgM measurem ent (mass/volume)Ordered By: Reginaldo Nava on 02-21-2023 IgM [Mass/Vol] 36 mg/dL 20-172 [facility] [place] Serum or plasma albumin ioana urement (mass/volume)Ordered By: Reginaldo Nava on 02-21-2023 Albumin [Mass/Vol] 3.9 g/dL 2.9-4.4 [facility] Serum or plasma albumin/glob ulin mass ratioOrdered By: Reginaldo Nava on 02-21-2023 Albumin/Globulin [Mass ratio] 1.2 {ratio} 0.9-2.4 [facility] [place] Serum or plasma beta globuli n measurement by electrophoresis (mass/volume)Ordered By: Reginaldo Nava on 02-21-2023 Beta globulin Elph [Mass/Vol] 1.0 g/dL 0.7-1.3 [facility] [place] Serum or plasma calcium ioana urement (mass/volume)Ordered By: Reginaldo Nava on 02-21-2023 Calcium [Mass/Vol] 9.1 mg/dL 8.5-10.1 [facility] Serum or plasma creatinine m easurement (mass/volume)Ordered By: Reginaldo Nava on 02-21-2023 Creatinine [Mass/Vol] 1.18 mg/dL 0.70-1.30 [facility] Comment on above: The validity of the calculated GFR & GFRAA in patients over 70 years has not been determined. Clinical correlation is essential. Serum or plasma ferritin merced surement (mass/volume)Ordered By: Reginaldo Nava on 02-21-2023 Ferritin [Mass/Vol] 62 ng/mL 26-388 [facility] Serum or plasma gamma globul in measurement by electrophoresis (mass/volume)Ordered By: Reginaldo Nava on 02-21-2023 Gamma globulin Elph [Mass/Vol] 0.7 g/dL 0.4-1.8 [facility] [place] Serum or plasma immunoelectr ophoresis interpretation (nominal result)Ordered By: Reginaldo Nava on 02-21-2023 Interpretation IEP [Interp] Comment . [facility] [place] Comment on above: No monoclonality det ected. Serum or plasma immunoglobul in kappa light chains measurement (mass/volume)Ordered By: Reginaldo Nava on 02-21-2023 Immunoglobulin light chains.kappa [Mass/Vol] 14.4 mg/L 3.3-19.4 [facility] [place] Serum or plasma iron saturat ion measurement (mass fraction)Ordered By: Reginaldo Nava on 02-21-2023 Iron saturation [Mass fraction] 25.4 % 15.0-55.0 [facility] [place] Serum or plasma urea nitroge n measurement (mass/volume)Ordered By: Reginaldo Elijah on 02-21-2023 Urea nitrogen [Mass/Vol] 13 mg/dL 7-18 [facility] [place] Thin prep Papanicolaou smear with manual screeningOrdered By: Reginaldo Elijah on 02-21-2023 Thin prep Papanicolaou smear with manual screening 28 U/L 15-37 [facility] [place] Thin prep Papanicolaou smear with manual screening 6 5-15 [facility] [place] Thin prep Papanicolaou smear with manual screening 1.6 0.7-1.7 [facility] [place] Total protein bloodOrdered B y: Reginaldo Nava on 02-21-2023 Protein [Mass/Vol] 6.4 g/dL 6.0-8.5 [facility] Absolute lymphocyte countOrd ered By: Hollyjose Arzola on 01-05-2023 Lymphocytes Auto (Unsp spec) [#/Vol] 0.36 10*3/uL 0.83-4.51 [facility] [place] Basophil percentageOrdered B y: Holly Arzola on 01-05-2023 Basophils/100 WBC (Bld) 0.5 % 0-1 [facility] Bilirubin [Mass/Vol] 0.40 mg/dL 0.20-1.[address] [facility] Comment on above: For patients on eltr ombopag therapy, use of Dimension [place] TBIL is not recommended. Chloride [Moles/Vol] 105 mmol/L 98-[address] [facility] Eosinophils/100 WBC (Bld) 0.2 % 0-5 [facility] [place] Glucose [Mass/Vol] 126 mg/dL 74-106 [facility] Comment on above: Fasting Glucose resu lt greater than or equal to 126 mg/dL suggests DIABETES MELLITUS per A.D.A. criteria. Neutrophils (Bld) [#/Vol] 5.4 10*3/uL 2.0-7.7 [facility] [place] Neutrophils/100 WBC (Bld) 91.1 % 47-70 [facility] [place] Potassium [Moles/Vol] 4.0 mmol/L 3.5-5.1 [facility] Protein [Mass/Vol] 7.5 g/dL 6.4-8.2 [facility] Sodium [Moles/Vol] 137 mmol/L 136-145 [facility] WBC (Bld) [#/Vol] 5.9 10*3/uL 4.4-11.0 [facility] Blood erythrocytes count (nu mber/volume)Ordered By: Holly Arzola on 01-05-2023 RBC (Bld) [#/Vol] 4.99 10*6/uL 4.6-6.2 [facility] Blood hemoglobin measurement (mass/volume)Ordered By: Holly Arzola on 01-05-2023 Hemoglobin (Bld) [Mass/Vol] 13.4 g/dL 13.0-16.5 [facility] [place] Blood lymphocytes/100 leukoc ytesOrdered By: Holly Arzola on 01-05-2023 Lymphocytes/100 WBC (Bld) 6.1 % 19-41 [facility] [place] Blood manual differential co mment interpretation (narrative result)Ordered By: Holly Arzola on 01-05-2023 Manual differential comment Xavi (Bld) [Interp] SEE COMMENT [facility] [place] Comment on above: LYMPHOPENIA NOTED Blood monocytes/100 leukocyt esOrdered By: Holly Arzola on 01-05-2023 Monocytes/100 WBC (Bld) 1.9 % 0-10 [facility] Blood platelet adequacy dete ction by light microscopyOrdered By: Holly Arzola on 01-05-2023 Platelets LM Ql (Bld) ADEQUATE ADEQ [facility] Blood platelet mean volumeOr dered By: Holly Arzola on 01-05-2023 Platelet mean volume (Bld) [Entitic vol] 9.9 fL 6.2-12.0 [facility] [place] Determination of erythrocyte mean corpuscular volume (MCV)Ordered By: Holly Arzola on 01-05-2023 MCV (RBC) [Entitic vol] 83.6 fL 80-94 [facility] Hematocrit Auto (Bld) [Volum e fraction]Ordered By: Holly Arzola on 01-05-2023 Hematocrit (Bld) [Volume fraction] 41.7 % 40-54 [facility] [place] Laboratory - Chemistry and C hemistry - challengeOrdered By: Holly Arzola on 01-05-2023 ALP [Catalytic activity/Vol] 62 U/L 45-117 [facility] [place] ALT [Catalytic activity/Vol] 35 U/L 16-61 [facility] [place] CO2 [Moles/Vol] 28.0 mmol/L 21.0-32.0 [facility] [place] Globulin (S) [Mass/Vol] 3.7 g/dL 2.2-4.2 [facility] Urea nitrogen/Creatinine [Mass ratio] 8.6 mg/mg 10-20 [facility] [place] Laboratory - Hematology and Cell countsOrdered By: Holly Arzola on 01-05-2023 Anisocytosis Ql (Bld) RARE [facility] Erythrocyte distribution width (RBC) [Entitic vol] 46.9 fL 35.1-43.9 [facility] [place] Erythrocyte distribution width (RBC) [Ratio] 15.7 % 11.6-14.6 [facility] [place] Immature granulocytes/100 WBC (Bld) 0.200 % 0.0-0.9 [facility] [place] Comment on above: IG% - Immature Granu locytes (promyelocytes, myelocytes and metamyelocytes) > 1% indicates that a LEFT SHIFT is Present. MCH (RBC) [Entitic mass] 26.9 pg 27.0-32.0 [facility] [place] Nucleated RBC/100 WBC (Bld) [Ratio] 0 % 0-5 [facility] [place] MCHC Auto (RBC) [Mass/Vol]Or dered By: Holly Arzola on 01-05-2023 MCHC (RBC) [Mass/Vol] 32.1 g/dL 32-36 [facility] No Panel InformationOrdered By: Holly Arzola on 01-05-2023 Estimated GFR (MDRD) Amer 80 mL/min >60 [facility] [place] Comment on above: GFR Calc Estimated GFR (MDRD) Non-Af Amer 66 mL/min >60 [facility] [place] Comment on above: Non- GFR Calc Hepatitis B Surface Antigen Non-Reactive Nonreactive [facility] [place] Hepatitis C Antibody Non-Reactive Nonreactive [facility] Comment on above: Non Reactive: < 0.8 Equivocal: >/= 0.8 to < 1.0 Reactive: >/= 1.0The CDC recommends that a reactive/equivocal HCV antibody result be followed up by the HCV Nucleic Acid Amplificationtest (196577) Platelets bldOrdered By: Gillian Arzola on 01-05-2023 Platelets (Bld) [#/Vol] 222 10*3/uL 150-450 [facility] [place] RBC morphologyOrdered By: Bipin Arzola on 01-05-2023 RBC morphology finding Nom (Bld) N CHROM NORMAL NORM C&C [facility] [place] Serum cyclic citrullinated p eptide IgG antibody assay (units/volume)Ordered By: Holly Arzola on 01-05-2023 Cyclic citrullinated peptide IgG Qn 5 units 0-19 [facility] [place] Comment on above: Negative <20 Weak po sitive 20 - 39 Moderate positive 40 - 59 Strong positive >59Performed at[facility] [place] [id number] Director: Jose Angel Marks PhD, Phone: [phone] Serum hepatitis B virus surf nomi antibody IgG detectionOrdered By: Holly Arzola on 01-05-2023 HBV surface IgG Ql (S) Non-Reactive [facility] [place] Comment on above: Non Reactive: Incons istent with immunity less than <10 mIU/mL Reactive: Consistent with immunity greater than or equal to 10 mIU/mL Serum or plasma albumin ioana urement (mass/volume)Ordered By: Holly Arzola on 01-05-2023 Albumin [Mass/Vol] 3.8 g/dL 3.2-5.0 [facility] Serum or plasma albumin/glob ulin mass ratioOrdered By: Holly Arzola on 01-05-2023 Albumin/Globulin [Mass ratio] 1.0 {ratio} 0.9-2.4 [facility] [place] Serum or plasma calcium ioana urement (mass/volume)Ordered By: Holly Arzola on 01-05-2023 Calcium [Mass/Vol] 9.0 mg/dL 8.5-10.1 [facility] Serum or plasma creatinine m easurement (mass/volume)Ordered By: Holly Arzola on 01-05-2023 Creatinine [Mass/Vol] 1.16 mg/dL 0.70-1.30 [facility] Comment on above: The validity of the calculated GFR & GFRAA in patients over 70 years has not been determined. Clinical correlation is essential. Serum or plasma urea nitroge n measurement (mass/volume)Ordered By: Holly Arzola on 01-05-2023 Urea nitrogen [Mass/Vol] 10 mg/dL 7-18 [facility] [place] Serum rheumatoid factor dete ctionOrdered By: Holly Arzola on 01-05-2023 Rheumatoid factor Ql (S) < 10.0 IU/mL <15 [facility] [place] Thin prep Papanicolaou smear with manual screeningOrdered By: Holly Arzola on 01-05-2023 Thin prep Papanicolaou smear with manual screening RARE [facility] [place] Thin prep Papanicolaou smear with manual screening 27 U/L 15-37 [facility] [place] Thin prep Papanicolaou smear with manual screening 4 5-15 [facility] [place] 24 hour urine protein measur ement (mass/time)Ordered By: True Ibarra on 12-30-2022 Protein (24H U) [Mass/Time] 153.0 mg/24HR 0-151 [facility] [place] 24 hour urine protein measur ement (mass/volume)Ordered By: True Ibarra on 12-30-2022 Protein (24H U) [Mass/Vol] 8.5 mg/dL 0.0-11.8 [facility] [place] Laboratory - Specimen inform ationOrdered By: True Ibarra on 12-30-2022 Collection duration (U) 24.0 HOURS 24.0-24.0 [facility] No Panel InformationOrdered By: True Ibarra on 12-30-2022 Timed Urine Volume 1800 mL [facility] 24 hour urine alpha 2 globul in/total protein ratio by electrophoresis (mass fraction)Ordered By: True Ibarra on 12-29-2022 Alpha 2 globulin Elph (24H U) [Mass fraction] 19.5 % . [facility] [place] 24 hour urine beta globulin/ total protein ratio by electrophoresis (mass fraction)Ordered By: True Ibarra on 12-29-2022 Beta globulin Elph (24H U) [Mass fraction] 37.6 % . [facility] [place] 24 hour urine gamma globulin /total protein ratio by electrophoresis (mass fraction)Ordered By: True Ibarra on 12-29-2022 Gamma globulin Elph (24H U) [Mass fraction] 18.8 % . [facility] [place] Absolute lymphocyte countOrd ered By: True Ibarra on 12-29-2022 Lymphocytes Auto (Unsp spec) [#/Vol] 1.57 10*3/uL 0.83-4.51 [facility] [place] Basophil percentageOrdered B y: True Ibarra on 12-29-2022 Basophils/100 WBC (Bld) 1.2 % 0-1 [facility] Bilirubin [Mass/Vol] 0.30 mg/dL 0.20-1.[address] [facility] Comment on above: For patients on eltr ombopag therapy, use of Dimension [place] TBIL is not recommended. Chloride [Moles/Vol] 106 mmol/L 98-[address] [facility] Cholesterol [Mass/Vol] 143 mg/dL <200 [facility] Comment on above: <200 mg/dL Desirable 200-240 mg/dL Borderline >240 mg/dL High Risk Eosinophils/100 WBC (Bld) 4.5 % 0-5 [facility] [place] Glucose [Mass/Vol] 95 mg/dL 74-106 [facility] Neutrophils (Bld) [#/Vol] 1.8 10*3/uL 2.0-7.7 [facility] [place] Neutrophils/100 WBC (Bld) 44.8 % 47-70 [facility] [place] Potassium [Moles/Vol] 4.4 mmol/L 3.5-5.1 [facility] Protein [Mass/Vol] 7.1 g/dL 6.4-8.2 [facility] Sodium [Moles/Vol] 138 mmol/L 136-145 [facility] Testosterone [Mass/Vol] ng/dL 264-916 [facility] Comment on above: Adult male reference interval is based on a population ofhealthy nonobese males (BMI <30) between 19 and 39 yearsold. Aniceto et.al. JCEM 2017,102;[id number]. PMID:[id number]. Triglyceride [Mass/Vol] 95 mg/dL <199 [facility] Comment on above: The drugs N-Acetylcy steine and Metamizole may falsely depress this assay.Serum Triglycerides Reference Interval Normal <150 mg/dL Borderline high 150 - 199 mg/dL High 200 - 499 mg/dL Very High > or = 500 mg/dL WBC (Bld) [#/Vol] 4.0 10*3/uL 4.4-11.0 [facility] Blood erythrocytes count (nu mber/volume)Ordered By: True Ibarra on 12-29-2022 RBC (Bld) [#/Vol] 4.98 10*6/uL 4.6-6.2 [facility] Blood hemoglobin measurement (mass/volume)Ordered By: True Ibarra on 12-29-2022 Hemoglobin (Bld) [Mass/Vol] 13.1 g/dL 13.0-16.5 [facility] [place] Blood lymphocytes/100 leukoc ytesOrdered By: True Ibarra on 12-29-2022 Lymphocytes/100 WBC (Bld) 38.9 % 19-41 [facility] [place] Blood monocytes/100 leukocyt esOrdered By: True Ibarra on 12-29-2022 Monocytes/100 WBC (Bld) 10.4 % 0-10 [facility] Blood platelet mean volumeOr dered By: True Ibarra on 12-29-2022 Platelet mean volume (Bld) [Entitic vol] 9.6 fL 6.2-12.0 [facility] [place] Determination of erythrocyte mean corpuscular volume (MCV)Ordered By: True Ibarra on 12-29-2022 MCV (RBC) [Entitic vol] 85.5 fL 80-94 [facility] [facility] Free testosterone percentage Ordered By: True Ibarra on 12-29-2022 Testosterone Free/Testosterone.total [Mass fraction] 3.26 % 1.50-4.20 [facility] Comment on above: Performed at: - [address] [id number] Director: Jose Angel Marks PhD, Phone: [phone] at: [facility] Lab[address] [id number] Director: Susan Rojas MD, Phone: [phone] Hematocrit Auto (Bld) [Volum e fraction]Ordered By: True Ibarra on 12-29-2022 Hematocrit (Bld) [Volume fraction] 42.6 % 40-54 [facility] Laboratory - Chemistry and C hemistry - challengeOrdered By: True Ibarra on 12-29-2022 Albumin [Mass/Vol] 3.7 g/dL 2.9-4.4 [facility] ALP [Catalytic activity/Vol] 62 U/L 45-117 [facility] ALT [Catalytic activity/Vol] 30 U/L 16-61 [facility] CO2 [Moles/Vol] 30.0 mmol/L 21.0-32.0 [facility] Globulin (S) [Mass/Vol] 3.5 g/dL 2.2-4.2 [facility] Urea nitrogen/Creatinine [Mass ratio] 13.3 mg/mg 10-20 [facility] Laboratory - Hematology and Cell countsOrdered By: True Ibarra on 12-29-2022 Erythrocyte distribution width (RBC) [Entitic vol] 48.5 fL 35.1-43.9 [facility] Erythrocyte distribution width (RBC) [Ratio] 15.7 % 11.6-14.6 [facility] Immature granulocytes/100 WBC (Bld) 0.200 % 0.0-0.9 [facility] Comment on above: IG% - Immature Granu locytes (promyelocytes, myelocytes and metamyelocytes) > 1% indicates that a LEFT SHIFT is Present. MCH (RBC) [Entitic mass] 26.3 pg 27.0-32.0 [facility] Nucleated RBC/100 WBC (Bld) [Ratio] 0 % 0-5 [facility] MCHC Auto (RBC) [Mass/Vol]Or dered By: True Ibarra on 12-29-2022 MCHC (RBC) [Mass/Vol] 30.8 g/dL 32-36 [facility] No Panel InformationOrdered By: True Ibarra on 12-29-2022 Addendum Document Comment . [facility] Comment on above: The SPE pattern appe ars unremarkable. Evidence ofmonoclonal protein is not apparent. Wmsyz-0-Nzhvxwqmm 0.3 g/dL 0.0-0.4 [facility] Hktih-7-Dalgjvgzz 0.7 g/dL 0.4-1.0 [facility] Estimated GFR (MDRD) Amer 90 mL/min >60 [facility] Comment on above: GFR Calc Estimated GFR (MDRD) Non-Af Amer 75 mL/min >60 [facility] Comment on above: Non- GFR Calc Gamma Globulins 0.9 g/dL 0.4-1.8 [facility] Serum Immunofixation Comment . [facility] Comment on above: No monoclonality det ected. Urine Immunofixation PEP Note Comment . [facility] Comment on above: Protein electrophore sis scan will follow via computer,mail, or promotional marketing agent delivery. Vitamin D 25-Hydroxy 38.0 ng/mL [facility] Comment on above: Vitamin D 25(OH) Sta tus Range Deficiency <20 ng/mL (50nmol/L) Insufficiency 20 - 30 ng/mL (50 - 75 nmol/L) Sufficiency 30 - 100 ng/mL (75 - 250 nmol/L) Toxicity >100 ng/mL (>250 nmol/L) Platelets bldOrdered By: Allison Ibarra on 12-29-2022 Platelets (Bld) [#/Vol] 246 10*3/uL 150-450 [facility] Protein Fractions Elph [Inte rp]Ordered By: True Ibarra on 12-29-2022 Protein Fractions [Interp] Comment . [facility] Comment on above: Protein electrophore sis scan will follow via computer,mail, or promotional marketing agent delivery. Serum albumin to globulin ra carley by protein electrophoresisOrdered By: True Ibarra on 12-29-2022 Albumin/Globulin Elph [Mass ratio] 1.3 0.7-1.7 [facility] Serum globulin measurement ( mass/volume)Ordered By: True Ibarra on 12-29-2022 Globulin (S) [Mass/Vol] 2.9 g/dL 2.2-3.9 [facility] Serum or plasma IgA measurem ent (mass/volume)Ordered By: True Ibarra on 12-29-2022 IgA [Mass/Vol] 209 mg/dL 61-437 [facility] Serum or plasma IgG measurem ent (mass/volume)Ordered By: True Ibarra on 12-29-2022 IgG [Mass/Vol] 833 mg/dL 603-1613 [facility] Serum or plasma IgM measurem ent (mass/volume)Ordered By: True Ibarra on 12-29-2022 IgM [Mass/Vol] 42 mg/dL 20-172 [facility] Serum or plasma albumin ioana urement (mass/volume)Ordered By: True Ibarra on 12-29-2022 Albumin [Mass/Vol] 3.6 g/dL 3.2-5.0 [facility] Serum or plasma albumin/glob ulin mass ratioOrdered By: True Ibarra on 12-29-2022 Albumin/Globulin [Mass ratio] 1.0 {ratio} 0.9-2.4 [facility] Serum or plasma beta globuli n measurement by electrophoresis (mass/volume)Ordered By: True Ibarra on 12-29-2022 Beta globulin Elph [Mass/Vol] 1.1 g/dL 0.7-1.3 [facility] Serum or plasma calcium ioana urement (mass/volume)Ordered By: True Ibarra on 12-29-2022 Calcium [Mass/Vol] 8.6 mg/dL 8.5-10.1 [facility] Serum or plasma cholesterol in HDL measurement (mass/volume)Ordered By: True Ibarra on 12-29-2022 Cholesterol in HDL [Mass/Vol] 63 mg/dL >40 [facility] Comment on above: The drugs N-Acetylcy steine and Metamizole may falsely depress this assay. Reference Range HDL <40 mg/dL Low HDL Cholesterol HDL >or= 60 mg/dL High HDL Cholesterol Serum or plasma cholesterol in VLDL measurement (mass/volume)Ordered By: True Ibarra on 12-29-2022 Cholesterol in VLDL [Mass/Vol] 19 mg/dL 5-40 [facility] Serum or plasma creatinine m easurement (mass/volume)Ordered By: True Ibarra on 12-29-2022 Creatinine [Mass/Vol] 1.05 mg/dL 0.70-1.30 [facility] Comment on above: The validity of the calculated GFR & GFRAA in patients over 70 years has not been determined. Clinical correlation is essential. Serum or plasma low density lipoprotein (LDL) cholesterol measurement (mass/volume)Ordered By: True Ibarra on 12-29-2022 Cholesterol in LDL [Mass/Vol] 61 mg/dL 0-130 [facility] Serum or plasma protein mono clonal measurement by electrophoresis (mass/volume)Ordered By: True Ibarra on 12-29-2022 Protein.monoclonal Elph [Mass/Vol] Not Observed g/dL Not Observed [facility] Serum or plasma testosterone free measurement (mass/volume)Ordered By: True Ibarra on 12-29-2022 Testosterone Free [Mass/Vol] > 48.90 ng/dL 5.00-21.00 [facility] Serum or plasma urea nitroge n measurement (mass/volume)Ordered By: True Ibarra on 12-29-2022 Urea nitrogen [Mass/Vol] 14 mg/dL 09-28 [facility] Thin prep Papanicolaou smear with manual screeningOrdered By: True Ibarra on 12-29-2022 Thin prep Papanicolaou smear with manual screening 22 U/L 15-37 [facility] Thin prep Papanicolaou smear with manual screening 2 5-15 [facility] Total protein bloodOrdered B y: True Ibarra on 12-29-2022 Protein [Mass/Vol] 6.6 g/dL 6.0-8.5 [facility] Urine albumin/total protein mass ratio by electrophoresisOrdered By: True Ibarra on 12-29-2022 Albumin Elph (U) [Mass fraction] 21.0 % . [facility] Urine alpha 1 globulin/total protein ratio by electrophoresis (mass fraction)Ordered By: True Ibarra on 12-29-2022 Alpha 1 globulin Elph (U) [Mass fraction] 3.1 % . [facility] Urine monoclonal protein/tot al protein mass ratio by electrophoresisOrdered By: True Ibarra on 12-29-2022 Protein.monoclonal Elph (U) [Mass fraction] See comment [facility] Comment on above: Result: Not Observed Urine protein measurement (m ass/volume)Ordered By: True Ibarra on 12-29-2022 Protein (U) [Mass/Vol] 7.2 mg/dL Not Estab. [facility] Basophil percentageOrdered B y: True Ibarra on 11-09-2022 Basophil percentage Not Reportable [facility] Chloride [Moles/Vol] 105 mmol/L 98-[address] [facility] Glucose [Mass/Vol] 110 mg/dL 74-106 [facility] Comment on above: Fasting Glucose resu lt from 100 to 125 mg/dL suggests IMPAIRED HOMEOSTASIS per A.D.A. criteria. Potassium [Moles/Vol] 4.1 mmol/L 3.5-5.1 [facility] Sodium [Moles/Vol] 138 mmol/L 136-145 [facility] Bilirubin Test strip Ql (U)O rdered By: True Ibarra on 11-09-2022 Bilirubin Ql (U) Negative Negative [facility] Erythrocyte sedimentation ra teOrdered By: True Ibarra on 11-09-2022 ESR (Bld) [Velocity] 15 mm/h 0-[address] [facility] Ketones Test strip Ql (U)Ord ered By: True Ibarra on 11-09-2022 Ketones Ql (U) Negative Negative [facility] Laboratory - Chemistry and C hemistry - challengeOrdered By: True Ibarra on 11-09-2022 CO2 [Moles/Vol] 27.0 mmol/L 21.0-32.0 [facility] Urea nitrogen/Creatinine [Mass ratio] 10.7 mg/mg 10-20 [facility] Nitrite Test strip Ql (U)Ord ered By: True Ibarra on 11-09-2022 Nitrite Ql (U) Negative Negative [facility] No Panel InformationOrdered By: True Ibarra on 11-09-2022 Anti-Nuclear Antibody Screen Negative Negative [facility] Comment on above: Performed at: [address] [id number] Director: Jose Angel Marks PhD, Phone: [phone] [employer] B Antibody Not Reportable [facility] Estimated GFR (MDRD) Amer 65 mL/min >60 [facility] Comment on above: GFR Calc Estimated GFR (MDRD) Non-Af Amer 54 mL/min >60 [facility] Comment on above: Non- GFR Calc [facility] Antibody Not Reportable [facility] Urine Microalbumin/Creatinine Ratio 6.2 mg/g CRE <30 [facility] Protein Test strip Ql (U)Ord ered By: True Ibarra on 11-09-2022 Protein Ql (U) Negative Negative [facility] Serum DNA double strand anti body assay (units/volume)Ordered By: True Ibarra on 11-09-2022 DNA double strand Ab Qn (S) Not Reportable [facility] Serum Linnea-1 antibody assay (u nits/volume)Ordered By: True Ibarra on 11-09-2022 Linnea-1 extractable nuclear Ab Qn (S) Not Reportable [facility] Serum Scl-70 extractable nuc lear antibody assay (units/volume)Ordered By: True Ibarra on 11-09-2022 SCL-70 extractable nuclear Ab Qn (S) Not Reportable [facility] Serum Sarkar extractable nucl ear antibody detectionOrdered By: True Ibarra on 11-09-2022 Sarkar extractable nuclear Ab Ql (S) Not Reportable [facility] Serum cyclic citrullinated p eptide IgG antibody assay (units/volume)Ordered By: True Ibarra on 11-09-2022 Cyclic citrullinated peptide IgG Qn 8 units 0-19 [facility] Comment on above: Negative <20 Weak po sitive 20 - 39 Moderate positive 40 - 59 Strong positive >59Performed at: [place] [id number] Director: Jose Angel Marks PhD, Phone: [phone] Serum or plasma C reactive p rotein measurement (mass/volume)Ordered By: Treu Ibarra on 11-09-2022 CRP [Mass/Vol] 4.97 mg/L 0.0-3.0 [facility] Comment on above: C-Reactive Protein ( CRP) provides useful information for thediagnosis, therapy and monitoring of inflammatory processesand associated diseases. For the evaluation of Relative Riskfor Cardiovascular Disease, a High Sensitivity CRP (HSCRP)should be ordered. Serum or plasma calcium ioana urement (mass/volume)Ordered By: True Ibarra on 11-09-2022 Calcium [Mass/Vol] 8.6 mg/dL 8.5-10.1 [facility] Serum or plasma creatinine m easurement (mass/volume)Ordered By: True Ibarra on 11-09-2022 Creatinine [Mass/Vol] 1.40 mg/dL 0.70-1.30 [facility] Comment on above: The validity of the calculated GFR & GFRAA in patients over 70 years has not been determined. Clinical correlation is essential. Serum or plasma urea nitroge n measurement (mass/volume)Ordered By: True Ibarra on 11-09-2022 Urea nitrogen [Mass/Vol] 15 mg/dL 7-18 [facility] Serum rheumatoid factor dete ctionOrdered By: True Ibarra on 11-09-2022 Rheumatoid factor Ql (S) < 10.0 IU/mL <15 [facility] Thin prep Papanicolaou smear with manual screeningOrdered By: True Ibarra on 11-09-2022 Thin prep Papanicolaou smear with manual screening 6 5-15 [facility] Thin prep Papanicolaou smear with manual screening 12.5 mg/L NO RANGE EST. [facility] Urine blood detectionOrdered By: True Ibarra on 11-09-2022 RBC Ql (U) Negative Negative [facility] Urine clarityOrdered By: Allison Ibarra on 11-09-2022 Clarity (U) Clear Clear [facility] Urine color determinationOrd ered By: True Ibarra on 11-09-2022 Color (U) Yellow Yellow [facility] Urine creatinine measurement (mass/volume)Ordered By: True Ibarra on 11-09-2022 Creatinine (U) [Mass/Vol] 203.00 mg/dL NO RANGE EST. [facility] Urine glucose detectionOrder ed By: True Ibarra on 11-09-2022 Glucose Ql (U) Normal mg/dl Normal [facility] Urine leukocyte esterase det ection by dipstickOrdered By: True Ibarra on 11-09-2022 Leukocyte esterase Test strip Ql (U) 25 /ul Negative [facility] Urine pHOrdered By: True wooten on 11-09-2022 pH (U) 5.0 [pH] 5.0 - 8.0 [facility] Urine specific gravity measu rementOrdered By: True Ibarra on 11-09-2022 Specific gravity (U) [Rel density] 1.025 1.002-1.030 [facility] Urobilinogen Auto test strip Ql (U)Ordered By: True Ibarra on 11-09-2022 Urobilinogen Ql (U) Normal mg/dl Normal [facility] Absolute lymphocyte countOrd ered By: Reginaldo Nava on 11-08-2022 Lymphocytes Auto (Unsp spec) [#/Vol] 0.92 10*3/uL 0.83-4.51 [facility] Basophil percentageOrdered B y: Reginaldo Nava on 11-08-2022 Basophils/100 WBC (Bld) 0.5 % 0-1 [facility] Bilirubin [Mass/Vol] 0.40 mg/dL 0.20-1.[address] [facility] Comment on above: For patients on eltr ombopag therapy, use of Dimension [place] TBIL is not recommended. Chloride [Moles/Vol] 106 mmol/L 98-[address] [facility] Eosinophils/100 WBC (Bld) 1.4 % 0-5 [facility] Glucose [Mass/Vol] 96 mg/dL 74-106 [facility] LDH [Catalytic activity/Vol] 219 U/L 87-241 [facility] Neutrophils (Bld) [#/Vol] 2.3 10*3/uL 2.0-7.7 [facility] Neutrophils/100 WBC (Bld) 61.0 % 47-70 [facility] Potassium [Moles/Vol] 3.8 mmol/L 3.5-5.1 [facility] Protein [Mass/Vol] 6.8 g/dL 6.4-8.2 [facility] Sodium [Moles/Vol] 138 mmol/L 136-145 [facility] WBC (Bld) [#/Vol] 3.7 10*3/uL 4.4-11.0 [facility] Blood erythrocytes count (nu mber/volume)Ordered By: Reginaldo Nava on 11-08-2022 RBC (Bld) [#/Vol] 4.65 10*6/uL 4.6-6.2 [facility] Blood hemoglobin measurement (mass/volume)Ordered By: Reginaldo Nava on 11-08-2022 Hemoglobin (Bld) [Mass/Vol] 12.5 g/dL 13.0-16.5 [facility] Blood lymphocytes/100 leukoc ytesOrdered By: Reginaldo Nava on 11-08-2022 Lymphocytes/100 WBC (Bld) 24.9 % 19-41 [facility] Blood monocytes/100 leukocyt esOrdered By: Reginaldo Nava on 11-08-2022 Monocytes/100 WBC (Bld) 12.2 % 0-10 [facility] Blood platelet mean volumeOr dered By: Reginaldo Nava on 11-08-2022 Platelet mean volume (Bld) [Entitic vol] 9.2 fL 6.2-12.0 [facility] Determination of erythrocyte mean corpuscular volume (MCV)Ordered By: Reginaldo Nava on 11-08-2022 MCV (RBC) [Entitic vol] 82.6 fL 80-94 [facility] Hematocrit Auto (Bld) [Volum e fraction]Ordered By: Reginaldo Nava on 11-08-2022 Hematocrit (Bld) [Volume fraction] 38.4 % 40-54 [facility] Laboratory - Chemistry and C hemistry - challengeOrdered By: Reginaldo Nava on 11-08-2022 ALP [Catalytic activity/Vol] 60 U/L 45-117 [facility] ALT [Catalytic activity/Vol] 29 U/L 16-61 [facility] CO2 [Moles/Vol] 29.0 mmol/L 21.0-32.0 [facility] Globulin (S) [Mass/Vol] 3.2 g/dL 2.2-4.2 [facility] Urea nitrogen/Creatinine [Mass ratio] 7.3 mg/mg 10-20 [facility] Laboratory - Hematology and Cell countsOrdered By: Reginaldo Nava on 11-08-2022 Erythrocyte distribution width (RBC) [Entitic vol] 44.0 fL 35.1-43.9 [facility] Erythrocyte distribution width (RBC) [Ratio] 14.7 % 11.6-14.6 [facility] Immature granulocytes/100 WBC (Bld) 0.000 % 0.0-0.9 [facility] Comment on above: IG% - Immature Granu locytes (promyelocytes, myelocytes and metamyelocytes) > 1% indicates that a LEFT SHIFT is Present. MCH (RBC) [Entitic mass] 26.9 pg 27.0-32.0 [facility] Nucleated RBC/100 WBC (Bld) [Ratio] 0 % 0-5 [facility] MCHC Auto (RBC) [Mass/Vol]Or dered By: Reginaldo aNva on 11-08-2022 MCHC (RBC) [Mass/Vol] 32.6 g/dL 32-36 [facility] No Panel InformationOrdered By: Reginaldo Nava on 11-08-2022 Estimated Creatinine Clearance Calc 44.51 ml/min [facility] Estimated GFR (MDRD) Amer 54 mL/min >60 [facility] Comment on above: GFR Calc Estimated GFR (MDRD) Non-Af Amer 45 mL/min >60 [facility] Comment on above: Non- GFR Calc Platelets bldOrdered By: Jose Nava on 11-08-2022 Platelets (Bld) [#/Vol] 172 10*3/uL 150-450 [facility] Serum or plasma albumin ioana urement (mass/volume)Ordered By: Reginaldo Nava on 11-08-2022 Albumin [Mass/Vol] 3.6 g/dL 3.2-5.0 [facility] Serum or plasma albumin/glob ulin mass ratioOrdered By: Reginaldo Nava on 11-08-2022 Albumin/Globulin [Mass ratio] 1.1 {ratio} 0.9-2.4 [facility] Serum or plasma calcium ioana urement (mass/volume)Ordered By: Reginaldo Nava on 11-08-2022 Calcium [Mass/Vol] 8.8 mg/dL 8.5-10.1 [facility] Serum or plasma creatinine m easurement (mass/volume)Ordered By: Reginaldo Nava on 11-08-2022 Creatinine [Mass/Vol] 1.64 mg/dL 0.70-1.30 [facility] Comment on above: The validity of the calculated GFR & GFRAA in patients over 70 years has not been determined. Clinical correlation is essential. Serum or plasma urea nitroge n measurement (mass/volume)Ordered By: Reginaldo Nava on 11-08-2022 Urea nitrogen [Mass/Vol] 12 mg/dL 7-18 [facility] Thin prep Papanicolaou smear with manual screeningOrdered By: Reginaldo Nava on 11-08-2022 Thin prep Papanicolaou smear with manual screening 27 U/L 15-37 [facility] Thin prep Papanicolaou smear with manual screening 3 5-15 [facility] Basophil percentageOrdered B y: Tito Krause on 08-02-2022 Bilirubin [Mass/Vol] 0.30 mg/dL 0.20-1.[address] [facility] Comment on above: For patients on eltr ombopag therapy, use of Dimension [place] TBIL is not recommended. Chloride [Moles/Vol] 105 mmol/L 98-[address] [facility] Cholesterol [Mass/Vol] 148 mg/dL <200 [facility] Comment on above: <200 mg/dL Desirable 200-240 mg/dL Borderline >240 mg/dL High Risk Glucose [Mass/Vol] 94 mg/dL 74-106 [facility] Potassium [Moles/Vol] 4.3 mmol/L 3.5-5.1 [facility] Protein [Mass/Vol] 6.8 g/dL 6.4-8.2 [facility] Sodium [Moles/Vol] 139 mmol/L 136-145 [facility] Testosterone [Mass/Vol] 187 ng/dL 264-916 [facility] Comment on above: Adult male reference interval is based on a population ofhealthy nonobese males (BMI <30) between 19 and 39 yearsold. leighton Moreland.al. JCEM 2017,102;[id number]. PMID:[id number]. Triglyceride [Mass/Vol] 92 mg/dL <199 [facility] Comment on above: The drugs N-Acetylcy steine and Metamizole may falsely depress this assay.Serum Triglycerides Reference Interval Normal <150 mg/dL Borderline high 150 - 199 mg/dL High 200 - 499 mg/dL Very High > or = 500 mg/dL Free testosterone percentage Ordered By: Tito Krause on 08-02-2022 Testosterone Free/Testosterone.total [Mass fraction] 2.22 % 1.50-4.20 [facility] Comment on above: Performed at: CB - [facility] [address] [id number] Director: Jose Angel Marks PhD, Phone: [phone] at: - [facility] [address] [id number] Director: Susan Rojas MD, Phone: [phone] Laboratory - Chemistry and C hemistry - challengeOrdered By: Tito Krause on 08-02-2022 ALP [Catalytic activity/Vol] 72 U/L 45-117 [facility] ALT [Catalytic activity/Vol] 24 U/L 16-61 [facility] CK [Catalytic activity/Vol] 80 U/L 39-308 [facility] CO2 [Moles/Vol] 28.0 mmol/L 21.0-32.0 [facility] Globulin (S) [Mass/Vol] 3.2 g/dL 2.2-4.2 [facility] Urea nitrogen/Creatinine [Mass ratio] 17.3 mg/mg 10-20 [facility] No Panel InformationOrdered By: Tito Krause on 08-02-2022 Estimated GFR (MDRD) Amer 97 mL/min >60 [facility] Comment on above: GFR Calc Estimated GFR (MDRD) Non-Af Amer 81 mL/min >60 [facility] Comment on above: Non- GFR Calc Thyroid Stimulating Hormone (TSH) 2.52 uIU/mL 0.358-3.74 [facility] Serum or plasma albumin ioana urement (mass/volume)Ordered By: Tito Krause on 08-02-2022 Albumin [Mass/Vol] 3.6 g/dL 3.2-5.0 [facility] Serum or plasma albumin/glob ulin mass ratioOrdered By: Tito Krause on 08-02-2022 Albumin/Globulin [Mass ratio] 1.1 {ratio} 0.9-2.4 [facility] Serum or plasma calcium ioana urement (mass/volume)Ordered By: Tito Krause on 08-02-2022 Calcium [Mass/Vol] 9.0 mg/dL 8.5-10.1 [facility] Serum or plasma cholesterol in HDL measurement (mass/volume)Ordered By: Tito Krause on 08-02-2022 Cholesterol in HDL [Mass/Vol] 54 mg/dL >40 [facility] Comment on above: The drugs N-Acetylcy steine and Metamizole may falsely depress this assay. Reference Range HDL <40 mg/dL Low HDL Cholesterol HDL >or= 60 mg/dL High HDL Cholesterol Serum or plasma cholesterol in VLDL measurement (mass/volume)Ordered By: Tito Krause on 08-02-2022 Cholesterol in VLDL [Mass/Vol] 18 mg/dL 5-40 [facility] [facility] Serum or plasma creatinine m easurement (mass/volume)Ordered By: Tito Krause on 08-02-2022 Creatinine [Mass/Vol] 0.98 mg/dL 0.70-1.30 [facility] Comment on above: The validity of the calculated GFR & GFRAA in patients over 70 years has not been determined. Clinical correlation is essential. Serum or plasma low density lipoprotein (LDL) cholesterol measurement (mass/volume)Ordered By: Tito Krause on 08-02-2022 Cholesterol in LDL [Mass/Vol] 76 mg/dL 0-130 [facility] Serum or plasma testosterone free measurement (mass/volume)Ordered By: Tito Krause on 08-02-2022 Testosterone Free [Mass/Vol] 4.15 ng/dL 5.00-21.00 [facility] Serum or plasma urea nitroge n measurement (mass/volume)Ordered By: Tito Krause on 08-02-2022 Urea nitrogen [Mass/Vol] 17 mg/dL 7-18 [facility] Thin prep Papanicolaou smear with manual screeningOrdered By: Tito Krause on 08-02-2022 Thin prep Papanicolaou smear with manual screening 28 U/L 15-37 [facility] Thin prep Papanicolaou smear with manual screening 6 5-15 [facility] Basophil percentageOrdered B y: Dr. Krause on 05-17-2022 Chloride [Moles/Vol] 104 mmol/L 98-[address] [facility] Glucose [Mass/Vol] 109 mg/dL 74-106 [facility] Comment on above: Fasting Glucose resu lt from 100 to 125 mg/dL suggests IMPAIRED HOMEOSTASIS per A.D.A. criteria. Potassium [Moles/Vol] 4.3 mmol/L 3.5-5.1 [facility] Sodium [Moles/Vol] 138 mmol/L 136-145 [facility] Laboratory - Chemistry and C hemistry - challengeOrdered By: Dr. Krause on 05-17-2022 CO2 [Moles/Vol] 29.0 mmol/L 21.0-32.0 [facility] Urea nitrogen/Creatinine [Mass ratio] 9.8 mg/mg 10-20 [facility] No Panel InformationOrdered By: Dr. Krause on 05-17-2022 Estimated GFR (MDRD) Amer 84 mL/min >60 [facility] Comment on above: GFR Calc Estimated GFR (MDRD) Non-Af Amer 69 mL/min >60 [facility] Comment on above: Non- GFR Calc Serum or plasma calcium ioana urement (mass/volume)Ordered By: Dr. Krause on 05-17-2022 Calcium [Mass/Vol] 9.0 mg/dL 8.5-10.1 [facility] Serum or plasma creatinine m easurement (mass/volume)Ordered By: Dr. Krause on 05-17-2022 Creatinine [Mass/Vol] 1.12 mg/dL 0.70-1.30 [facility] Comment on above: The validity of the calculated GFR & GFRAA in patients over 70 years has not been determined. Clinical correlation is essential. Serum or plasma urea nitroge n measurement (mass/volume)Ordered By: Dr. Krause on 05-17-2022 Urea nitrogen [Mass/Vol] 11 mg/dL 7-18 [facility] Thin prep Papanicolaou smear with manual screeningOrdered By: Dr. Krause on 05-17-2022 Thin prep Papanicolaou smear with manual screening 5 5-15 [facility] Basophil percentageon 2022 Testosterone [Mass/Vol] 1057 ng/dL 264-916 [facility] Comment on above: Adult male reference interval is based on a population ofhealthy nonobese males (BMI <30) between 19 and 39 yearsold. Aniceto et.al. JCEM 2017,102;9834-3256. PMID:[id number]. Free testosterone percentage on 04-19-2022 Testosterone Free/Testosterone.total [Mass fraction] 2.33 % 1.50-4.20 [facility] Comment on above: Performed at: [facility] [address] [id number] Director: Jose Angel Marks PhD, Phone: [phone] at: [facility] [address] [id number] Director: Susan Rojas MD, Phone: [phone] Serum or plasma testosterone free measurement (mass/volume)on 04-19-2022 Testosterone Free [Mass/Vol] 24.63 ng/dL 5.00-21.00 [facility] Basophil percentageOrdered B y: Dr. Krause on 04-14-2022 Bilirubin [Mass/Vol] 0.30 mg/dL 0.20-1.[address] [facility] Comment on above: For patients on eltr ombopag therapy, use of Dimension [place] TBIL is not recommended. Chloride [Moles/Vol] 104 mmol/L 98-[address] [facility] Glucose [Mass/Vol] 100 mg/dL 74-106 [facility] Comment on above: Fasting Glucose resu lt from 100 to 125 mg/dL suggests IMPAIRED HOMEOSTASIS per A.D.A. criteria. Potassium [Moles/Vol] 4.0 mmol/L 3.5-5.1 [facility] Protein [Mass/Vol] 6.9 g/dL 6.4-8.2 [facility] Sodium [Moles/Vol] 140 mmol/L 136-145 [facility] Laboratory - Chemistry and C hemistry - challengeOrdered By: Dr. Krause on 04-14-2022 ALP [Catalytic activity/Vol] 56 U/L 45-117 [facility] ALT [Catalytic activity/Vol] 27 U/L 16-61 [facility] CK [Catalytic activity/Vol] 88 U/L 39-308 [facility] CO2 [Moles/Vol] 31.0 mmol/L 21.0-32.0 [facility] Globulin (S) [Mass/Vol] 3.2 g/dL 2.2-4.2 [facility] Urea nitrogen/Creatinine [Mass ratio] 6.0 mg/mg 10-20 [facility] No Panel InformationOrdered By: Dr. Krause on 04-14-2022 Estimated GFR (MDRD) Amer 60 mL/min >60 [facility] Comment on above: GFR Calc Estimated GFR (MDRD) Non-Af Amer 50 mL/min >60 [facility] Comment on above: Non- GFR Calc Serum or plasma albumin ioana urement (mass/volume)Ordered By: Dr. Krause on 04-14-2022 Albumin [Mass/Vol] 3.7 g/dL 3.2-5.0 [facility] Serum or plasma albumin/glob ulin mass ratioOrdered By: Dr. Krause on 04-14-2022 Albumin/Globulin [Mass ratio] 1.2 {ratio} 0.9-2.4 [facility] Serum or plasma calcium ioana urement (mass/volume)Ordered By: Dr. Krause on 04-14-2022 Calcium [Mass/Vol] 8.7 mg/dL 8.5-10.1 [facility] Serum or plasma creatinine m easurement (mass/volume)Ordered By: Dr. Krause on 04-14-2022 Creatinine [Mass/Vol] 1.49 mg/dL 0.70-1.30 [facility] Comment on above: The validity of the calculated GFR & GFRAA in patients over 70 years has not been determined. Clinical correlation is essential. Serum or plasma urea nitroge n measurement (mass/volume)Ordered By: Dr. Krause on 04-14-2022 Urea nitrogen [Mass/Vol] 9 mg/dL 7-18 [facility] Thin prep Papanicolaou smear with manual screeningOrdered By: Dr. Krause on 04-14-2022 Thin prep Papanicolaou smear with manual screening 30 U/L 15-37 [facility] Thin prep Papanicolaou smear with manual screening 5 5-15 [facility] Absolute lymphocyte countOrd ered By: Desirae Yanes on 04-08-2022 Lymphocytes Auto (Unsp spec) [#/Vol] 1.04 10*3/uL 0.83-4.51 [facility] Basophil percentageOrdered B y: Desirae Yanes on 04-08-2022 Testosterone [Mass/Vol] 1429 ng/dL 264-916 [facility] Comment on above: Adult male reference interval is based on a population ofhealthy nonobese males (BMI <30) between 19 and 39 yearsold. leighton Moreland.al. JCEM 2017,102;2224-7346. PMID:[id number]. Basophils/100 WBC (Bld) 0.7 % 0-1 [facility] Eosinophils/100 WBC (Bld) 2.1 % 0-5 [facility] Neutrophils (Bld) [#/Vol] 2.8 10*3/uL 2.0-7.7 [facility] Neutrophils/100 WBC (Bld) 64.0 % 47-70 [facility] WBC (Bld) [#/Vol] 4.3 10*3/uL 4.4-11.0 [facility] Bilirubin [Mass/Vol] 0.40 mg/dL 0.20-1.[address] [facility] Comment on above: For patients on eltr ombopag therapy, use of Dim[place] TBIL is not recommended. Chloride [Moles/Vol] 105 mmol/L 98-[address] [facility] Cholesterol [Mass/Vol] 137 mg/dL <200 [facility] Comment on above: <200 mg/dL Desirable 200-240 mg/dL Borderline >240 mg/dL High Risk Glucose [Mass/Vol] 118 mg/dL 74-106 [facility] Comment on above: Fasting Glucose resu lt from 100 to 125 mg/dL suggests IMPAIRED HOMEOSTASIS per A.D.A. criteria. Potassium [Moles/Vol] 4.0 mmol/L 3.5-5.1 [facility] Protein [Mass/Vol] 6.3 g/dL 6.4-8.2 [facility] Sodium [Moles/Vol] 140 mmol/L 136-145 [facility] Triglyceride [Mass/Vol] 63 mg/dL <199 [facility] Comment on above: The drugs N-Acetylcy steine and Metamizole may falsely depress this assay.Serum Triglycerides Reference Interval Normal <150 mg/dL Borderline high 150 - 199 mg/dL High 200 - 499 mg/dL Very High > or = 500 mg/dL Blood erythrocytes count (nu mber/volume)Ordered By: Desirae Yanes on 04-08-2022 RBC (Bld) [#/Vol] 4.47 10*6/uL 4.6-6.2 [facility] Blood hemoglobin measurement (mass/volume)Ordered By: Desirae Yanes on 04-08-2022 Hemoglobin (Bld) [Mass/Vol] 13.0 g/dL 13.0-16.5 [facility] Blood lymphocytes/100 leukoc ytesOrdered By: Desirae Yanes on 04-08-2022 Lymphocytes/100 WBC (Bld) 24.2 % 19-41 [facility] Blood monocytes/100 leukocyt esOrdered By: Desirae Yanes on 04-08-2022 Monocytes/100 WBC (Bld) 8.8 % 0-10 [facility] Blood platelet mean volumeOr dered By: Desirae Yanes on 04-08-2022 Platelet mean volume (Bld) [Entitic vol] 9.5 fL 6.2-12.0 [facility] Determination of erythrocyte mean corpuscular volume (MCV)Ordered By: Desirae Yanes on 04-08-2022 MCV (RBC) [Entitic vol] 89.7 fL 80-94 [facility] Direct bilirubinOrdered By: Desirae Yanes on 04-08-2022 Bilirubin.direct [Mass/Vol] 0.14 mg/dL 0.00-0.30 [facility] Free testosterone percentage Ordered By: Desirae Yanes on 04-08-2022 Testosterone Free/Testosterone.total [Mass fraction] 3.51 % 1.50-4.20 [facility] Comment on above: Performed at: [address] [id number] Director: Jose Angel Marks PhD, Phone: [phone] at: [facility] Lab[address] [id number] Director: Susan Rojas MD, Phone: [phone] Hematocrit Auto (Bld) [Volum e fraction]Ordered By: Desirae Yanes on 04-08-2022 Hematocrit (Bld) [Volume fraction] 40.1 % 40-54 [facility] Laboratory - Chemistry and C hemistry - challengeOrdered By: Desirae Yanes on 04-08-2022 ALP [Catalytic activity/Vol] 56 U/L 45-117 [facility] ALT [Catalytic activity/Vol] 25 U/L 16-61 [facility] CO2 [Moles/Vol] 30.0 mmol/L 21.0-32.0 [facility] Globulin (S) [Mass/Vol] 3.1 g/dL 2.2-4.2 [facility] Urea nitrogen/Creatinine [Mass ratio] 11.4 mg/mg 10-20 [facility] Laboratory - Hematology and Cell countsOrdered By: Desirae Yanes on 04-08-2022 Erythrocyte distribution width (RBC) [Entitic vol] 43.6 fL 35.1-43.9 [facility] Erythrocyte distribution width (RBC) [Ratio] 13.2 % 11.6-14.6 [facility] Immature granulocytes/100 WBC (Bld) 0.200 % 0.0-0.9 [facility] Comment on above: IG% - Immature Granu locytes (promyelocytes, myelocytes and metamyelocytes) > 1% indicates that a LEFT SHIFT is Present. MCH (RBC) [Entitic mass] 29.1 pg 27.0-32.0 [facility] Nucleated RBC/100 WBC (Bld) [Ratio] 0 % 0-5 [facility] MCHC Auto (RBC) [Mass/Vol]Or dered By: Desirae Yanes on 04-08-2022 MCHC (RBC) [Mass/Vol] 32.4 g/dL 32-36 [facility] No Panel InformationOrdered By: Desirae Yanes on 04-08-2022 Estimated GFR (MDRD) Amer 99 mL/min >60 [facility] Comment on above: GFR Calc Estimated GFR (MDRD) Non-Af Amer 82 mL/min >60 [facility] Comment on above: Non- GFR Calc Prostate Specific Antigen Screen 0.55 ng/mL 0.00-4.00 [facility] Comment on above: This test was perfor med using the TPSA assay method [facility]. Values obtained with differentassay methods cannot be used interchangably.When changing PSA assays in the course of monitoring apatient, additional sequential testing should be carriedout to confirm baseline values. Thyroid Stimulating Hormone (TSH) 1.17 uIU/mL 0.358-3.74 [facility] Platelets bldOrdered By: Lazaro Yanes on 04-08-2022 Platelets (Bld) [#/Vol] 194 10*3/uL 150-450 [facility] Serum or plasma albumin ioana urement (mass/volume)Ordered By: Desirae Yanes on 04-08-2022 Albumin [Mass/Vol] 3.2 g/dL 3.2-5.0 [facility] Serum or plasma albumin/glob ulin mass ratioOrdered By: Desirae Yanes on 04-08-2022 Albumin/Globulin [Mass ratio] 1.0 {ratio} 0.9-2.4 [facility] Serum or plasma calcium ioana urement (mass/volume)Ordered By: Desirae Yanes on 04-08-2022 Calcium [Mass/Vol] 8.3 mg/dL 8.5-10.1 [facility] Serum or plasma cholesterol in HDL measurement (mass/volume)Ordered By: Desirae Yanes on 04-08-2022 Cholesterol in HDL [Mass/Vol] 66 mg/dL >40 [facility] Comment on above: The drugs N-Acetylcy steine and Metamizole may falsely depress this assay. Reference Range HDL <40 mg/dL Low HDL Cholesterol HDL >or= 60 mg/dL High HDL Cholesterol Serum or plasma cholesterol in VLDL measurement (mass/volume)Ordered By: Desirae Yanes on 04-08-2022 Cholesterol in VLDL [Mass/Vol] 13 mg/dL 5-40 [facility] Serum or plasma creatinine m easurement (mass/volume)Ordered By: Desirae Yanes on 04-08-2022 Creatinine [Mass/Vol] 0.97 mg/dL 0.70-1.30 [facility] Comment on above: The validity of the calculated GFR & GFRAA in patients over 70 years has not been determined. Clinical correlation is essential. Serum or plasma low density lipoprotein (LDL) cholesterol measurement (mass/volume)Ordered By: Desirae Yanes on 04-08-2022 Cholesterol in LDL [Mass/Vol] 58 mg/dL 0-130 [facility] Serum or plasma testosterone free measurement (mass/volume)Ordered By: Desirae Yanes on 04-08-2022 Testosterone Free [Mass/Vol] 50.16 ng/dL 5.00-21.00 [facility] Serum or plasma urea nitroge n measurement (mass/volume)Ordered By: Desirae Yanes on 04-08-2022 Urea nitrogen [Mass/Vol] 11 mg/dL 7-18 [facility] Thin prep Papanicolaou smear with manual screeningOrdered By: Desirae Yanes on 04-08-2022 Thin prep Papanicolaou smear with manual screening 25 U/L 15-37 [facility] Thin prep Papanicolaou smear with manual screening 5 5-15 [facility] Basophil percentageOrdered B y: Dr. Krause on 02-01-2022 Testosterone [Mass/Vol] 777 ng/dL 264-916 [facility] Comment on above: Adult male reference interval is based on a population ofhealthy nonobese males (BMI <30) between 19 and 39 yearsold. leighton Moreland.al. JCEM 2017,102;4637-0343. PMID:[id number]. Free testosterone percentage Ordered By: Dr. Krause on 02-01-2022 Testosterone Free/Testosterone.total [Mass fraction] 2.49 % 1.50-4.20 [facility] Comment on above: Performed at: [facility] [address] [id number] Director: Jose Angel Marks PhD, Phone: [phone] at: [facility] [address] [id number] Director: Susan Rojas MD, Phone: [phone] Serum or plasma testosterone free measurement (mass/volume)Ordered By: Dr. Krause on 02-01-2022 Testosterone Free [Mass/Vol] 19.35 ng/dL 5.00-21.00 [facility] Basophil percentageon 2021 Bilirubin [Mass/Vol] 0.30 mg/dL 0.20-1.[address] [facility] Work Phone: Comment on above: For patients on eltr ombopag therapy, use of Dimension [place] TBIL is not recommended. Chloride [Moles/Vol] 107 mmol/L 98-[address] [facility] Work Phone: Glucose [Mass/Vol] 98 mg/dL 74-106 [facility] Work Phone: Potassium [Moles/Vol] 4.2 mmol/L 3.5-5.1 [facility] Work Phone: Protein [Mass/Vol] 7.2 g/dL 6.4-8.2 [facility] Work Phone: Sodium [Moles/Vol] 142 mmol/L 136-145 [facility] Work Phone: Testosterone [Mass/Vol] 78 ng/dL 264-916 [facility] Work Phone: Comment on above: Adult male reference interval is based on a population ofhealthy nonobese males (BMI <30) between 19 and 39 yearsold. leighton Moreland.al. JCEM 2017,102;8194-9959. PMID:[id number]. Free testosterone percentage on 12-09-2021 Testosterone Free/Testosterone.total [Mass fraction] 1.17 % 1.50-4.20 [facility] Work Phone: Comment on above: Performed at: [address] [id number] Director: Jose Angel Marks PhD, Phone: [phone] at: [facility] [id number] Director: Susan Rojas MD, Phone: [phone] Laboratory - Chemistry and C hemistry - challengeon 12-09-2021 ALP [Catalytic activity/Vol] 62 U/L 45-117 [facility] Work Phone: ALT [Catalytic activity/Vol] 31 U/L 16-61 [facility] Work Phone: CO2 [Moles/Vol] 29.0 mmol/L 21.0-32.0 [facility] Work Phone: Globulin (S) [Mass/Vol] 3.4 g/dL 2.2-4.2 [facility] Work Phone: Urea nitrogen/Creatinine [Mass ratio] 18.8 mg/mg 10-20 [facility] Work Phone: No Panel Informationon 12-09 Estimated GFR (MDRD) Amer 84 mL/min >60 [facility] Work Phone: Comment on above: GFR Calc Estimated GFR (MDRD) Non-Af Amer 69 mL/min >60 [facility] Work Phone: Comment on above: Non- GFR Calc Serum or plasma albumin ioana urement (mass/volume)on 12-09-2021 Albumin [Mass/Vol] 3.8 g/dL 3.2-5.0 [facility] Work Phone: Serum or plasma albumin/glob ulin mass ratioon 12-09-2021 Albumin/Globulin [Mass ratio] 1.1 {ratio} 0.9-2.4 [facility] Work Phone: Serum or plasma calcium ioana urement (mass/volume)on 12-09-2021 Calcium [Mass/Vol] 8.8 mg/dL 8.5-10.1 [facility] Work Phone: Serum or plasma creatinine m easurement (mass/volume)on 12-09-2021 Creatinine [Mass/Vol] 1.12 mg/dL 0.70-1.30 [facility] Work Phone: Comment on above: The validity of the calculated GFR & GFRAA in patients over 70 years has not been determined. Clinical correlation is essential. Serum or plasma testosterone free measurement (mass/volume)on 12-09-2021 Testosterone Free [Mass/Vol] 0.91 ng/dL 5.00-21.00 [facility] Work Phone: Serum or plasma urea nitroge n measurement (mass/volume)on 12-09-2021 Urea nitrogen [Mass/Vol] 21 mg/dL 7-18 [facility] Work Phone: Thin prep Papanicolaou smear with manual screeningon 12-09-2021 Thin prep Papanicolaou smear with manual screening 26 U/L 15-37 [facility] Work Phone: Thin prep Papanicolaou smear with manual screening 6 5-15 [facility] Work Phone: Basophil percentageon 2021 Bilirubin [Mass/Vol] 0.50 mg/dL 0.20-1.[address] [facility] Work Phone: Comment on above: For patients on eltr ombopag therapy, use of Dimension [place] TBIL is not recommended. Chloride [Moles/Vol] 107 mmol/L 98-[address] [facility] Work Phone: Cholesterol [Mass/Vol] 169 mg/dL <200 [facility] Work Phone: Comment on above: <200 mg/dL Desirable 200-240 mg/dL Borderline >240 mg/dL High Risk Glucose [Mass/Vol] 103 mg/dL 74-106 [facility] Work Phone: Comment on above: Fasting Glucose resu lt from 100 to 125 mg/dL suggests IMPAIRED HOMEOSTASIS per A.D.A. criteria. Potassium [Moles/Vol] 4.4 mmol/L 3.5-5.1 [facility] Work Phone: Protein [Mass/Vol] 7.0 g/dL 6.4-8.2 [facility] Work Phone: Sodium [Moles/Vol] 140 mmol/L 136-145 [facility] Work Phone: Testosterone [Mass/Vol] 120 ng/dL 264-916 [facility] Work Phone: Comment on above: Adult male reference interval is based on a population ofhealthy nonobese males (BMI <30) between 19 and 39 yearsold. leighton Moreland.al. JCEM 2017,102;8494-1073. PMID:[id number]. Triglyceride [Mass/Vol] 74 mg/dL <199 [facility] Work Phone: Comment on above: The drugs N-Acetylcy steine and Metamizole may falsely depress this assay.Serum Triglycerides Reference Interval Normal <150 mg/dL Borderline high 150 - 199 mg/dL High 200 - 499 mg/dL Very High > or = 500 mg/dL Free testosterone percentage on 09-19-2022 Testosterone Free/Testosterone.total [Mass fraction] 1.64 % 1.50-4.20 [facility] Work Phone: Comment on above: Performed at: [address] [id number] Director: Jose Angel Marks PhD, Phone: [phone] at: [facility] [id number] Director: Susan Rojas MD, Phone: [phone] Laboratory - Chemistry and C hemistry - challengeon 11-30-2021 ALP [Catalytic activity/Vol] 62 U/L 45-117 [facility] Work Phone: ALT [Catalytic activity/Vol] 35 U/L 16-61 [facility] Work Phone: CO2 [Moles/Vol] 26.0 mmol/L 21.0-32.0 [facility] Work Phone: Globulin (S) [Mass/Vol] 3.1 g/dL 2.2-4.2 [facility] Work Phone: Urea nitrogen/Creatinine [Mass ratio] 16.7 mg/mg 10-20 [facility] Work Phone: No Panel Informationon 11-30 Estimated GFR (MDRD) Amer 88 mL/min >60 [facility] Work Phone: Comment on above: GFR Calc Estimated GFR (MDRD) Non-Af Amer 72 mL/min >60 [facility] Work Phone: Comment on above: Non- GFR Calc Serum or plasma albumin ioana urement (mass/volume)on 11-30-2021 Albumin [Mass/Vol] 3.9 g/dL 3.2-5.0 [facility] Work Phone: Serum or plasma albumin/glob ulin mass ratioon 11-30-2021 Albumin/Globulin [Mass ratio] 1.3 {ratio} 0.9-2.4 [facility] Work Phone: Serum or plasma calcium ioana urement (mass/volume)on 11-30-2021 Calcium [Mass/Vol] 9.3 mg/dL 8.5-10.1 [facility] Work Phone: Serum or plasma cholesterol in HDL measurement (mass/volume)on 11-30-2021 Cholesterol in HDL [Mass/Vol] 70 mg/dL >40 [facility] Work Phone: Comment on above: The drugs N-Acetylcy steine and Metamizole may falsely depress this assay. Reference Range HDL <40 mg/dL Low HDL Cholesterol HDL >or= 60 mg/dL High HDL Cholesterol Serum or plasma cholesterol in VLDL measurement (mass/volume)on 11-30-2021 Cholesterol in VLDL [Mass/Vol] 15 mg/dL 5-40 [facility] Work Phone: Serum or plasma creatinine m easurement (mass/volume)on 11-30-2021 Creatinine [Mass/Vol] 1.08 mg/dL 0.70-1.30 [facility] Work Phone: Comment on above: The validity of the calculated GFR & GFRAA in patients over 70 years has not been determined. Clinical correlation is essential. Serum or plasma low density lipoprotein (LDL) cholesterol measurement (mass/volume)on 11-30-2021 Cholesterol in LDL [Mass/Vol] 84 mg/dL 0-130 [facility] Work Phone: Serum or plasma testosterone free measurement (mass/volume)on 11-30-2021 Testosterone Free [Mass/Vol] 1.97 ng/dL 5.00-21.00 [facility] Work Phone: Serum or plasma urea nitroge n measurement (mass/volume)on 11-30-2021 Urea nitrogen [Mass/Vol] 18 mg/dL 7-18 [facility] Work Phone: Thin prep Papanicolaou smear with manual screeningon 11-30-2021 Thin prep Papanicolaou smear with manual screening 33 U/L 15-37 [facility] Work Phone: Thin prep Papanicolaou smear with manual screening 7 5-15 [facility] Work Phone: [phone] Absolute lymphocyte counton 11-09-2021 Lymphocytes Auto (Unsp spec) [#/Vol] 1.37 10*3/uL 0.83-4.51 [facility] Work Phone: Basophil percentageon 2021 Basophils/100 WBC (Bld) 0.4 % 0-1 [facility] Work Phone: [phone] Bilirubin [Mass/Vol] 0.30 mg/dL 0.20-1.[address] [facility] Work Phone: Comment on above: For patients on eltr ombopag therapy, use of Dimension [place] TBIL is not recommended. Chloride [Moles/Vol] 107 mmol/L 98-[address] [facility] Work Phone: [phone] Eosinophils/100 WBC (Bld) 1.4 % 0-5 [facility] Work Phone: [phone] Glucose [Mass/Vol] 106 mg/dL 74-106 [facility] Work Phone: Comment on above: Fasting Glucose resu lt from 100 to 125 mg/dL suggests IMPAIRED HOMEOSTASIS per A.D.A. criteria. Neutrophils (Bld) [#/Vol] 3.1 10*3/uL 2.0-7.7 [facility] Work Phone: [phone] Neutrophils/100 WBC (Bld) 62.5 % 47-70 [facility] Work Phone: [phone] Potassium [Moles/Vol] 3.8 mmol/L 3.5-5.1 [facility] Work Phone: [phone] Protein [Mass/Vol] 6.7 g/dL 6.4-8.2 [facility] Work Phone: Sodium [Moles/Vol] 140 mmol/L 136-145 [facility] Work Phone: [phone] WBC (Bld) [#/Vol] 5.0 10*3/uL 4.4-11.0 [facility]: Blood erythrocytes count (nu mber/volume)on 11-09-2021 RBC (Bld) [#/Vol] 4.08 10*6/uL 4.6-6.2 [facility] Work Phone: Blood hemoglobin measurement (mass/volume)on 11-09-2021 Hemoglobin (Bld) [Mass/Vol] 12.6 g/dL 13.0-16.5 [facility] Work Phone: Blood lymphocytes/100 leukoc yteson 11-09-2021 Lymphocytes/100 WBC (Bld) 27.3 % 19-41 [facility] Work Phone: Blood monocytes/100 leukocyt eson 11-09-2021 Monocytes/100 WBC (Bld) 8.2 % 0-10 [facility] Work Phone: Blood platelet mean volumeon 11-09-2021 Platelet mean volume (Bld) [Entitic vol] 9.5 fL 6.2-12.0 [facility] Work Phone: Determination of erythrocyte mean corpuscular volume (MCV)on 11-09-2021 MCV (RBC) [Entitic vol] 88.2 fL 80-94 [facility] Work Phone: Hematocrit Auto (Bld) [Volum e fraction]on 11-09-2021 Hematocrit (Bld) [Volume fraction] 36.0 % 40-54 [facility] Work Phone: Laboratory - Chemistry and C hemistry - challengeon 11-09-2021 ALP [Catalytic activity/Vol] 60 U/L 45-117 [facility] Work Phone: ALT [Catalytic activity/Vol] 35 U/L 16-61 [facility] Work Phone: CO2 [Moles/Vol] 30.0 mmol/L 21.0-32.0 [facility] Work Phone: Globulin (S) [Mass/Vol] 3.0 g/dL 2.2-4.2 [facility] Work Phone: Urea nitrogen/Creatinine [Mass ratio] 7.3 mg/mg 10-20 [facility] Work Phone: Laboratory - Hematology and Cell countson 11-09-2021 Erythrocyte distribution width (RBC) [Entitic vol] 41.4 fL 35.1-43.9 [facility] Work Phone: Erythrocyte distribution width (RBC) [Ratio] 12.8 % 11.6-14.6 [facility] Work Phone: Immature granulocytes/100 WBC (Bld) 0.200 % 0.0-0.9 [facility] Work Phone: Comment on above: IG% - Immature Granu locytes (promyelocytes, myelocytes and metamyelocytes) > 1% indicates that a LEFT SHIFT is Present. MCH (RBC) [Entitic mass] 30.9 pg 27.0-32.0 [facility] Work Phone: Nucleated RBC/100 WBC (Bld) [Ratio] 0 % 0-5 [facility] Work Phone: MCHC Auto (RBC) [Mass/Vol]on 11-09-2021 MCHC (RBC) [Mass/Vol] 35.0 g/dL 32-36 [facility] Work Phone: No Panel Informationon 11-09 Estimated Creatinine Clearance Calc 59.69 ml/min [facility] Work Phone: Estimated GFR (MDRD) Amer 75 mL/min >60 [facility] Work Phone: Comment on above: GFR Calc Estimated GFR (MDRD) Non-Af Amer 62 mL/min >60 [facility] Work Phone: Comment on above: Non- GFR Calc Platelets bldon 11-09-2021 Platelets (Bld) [#/Vol] 174 10*3/uL 150-450 [facility] Work Phone: Serum or plasma albumin ioana urement (mass/volume)on 11-09-2021 Albumin [Mass/Vol] 3.7 g/dL 3.2-5.0 [facility] Work Phone: Serum or plasma albumin/glob ulin mass ratioon 11-09-2021 Albumin/Globulin [Mass ratio] 1.2 {ratio} 0.9-2.4 [facility] Work Phone: Serum or plasma calcium ioana urement (mass/volume)on 11-09-2021 Calcium [Mass/Vol] 9.0 mg/dL 8.5-10.1 [facility] Work Phone: Serum or plasma creatinine m easurement (mass/volume)on 11-09-2021 Creatinine [Mass/Vol] 1.24 mg/dL 0.70-1.30 [facility] Work Phone: Comment on above: The validity of the calculated GFR & GFRAA in patients over 70 years has not been determined. Clinical correlation is essential. Serum or plasma urea nitroge n measurement (mass/volume)on 11-09-2021 Urea nitrogen [Mass/Vol] 9 mg/dL 7-18 [facility] Work Phone: Thin prep Papanicolaou smear with manual screeningon 11-09-2021 Thin prep Papanicolaou smear with manual screening 28 U/L 15-37 [facility] Work Phone: Thin prep Papanicolaou smear with manual screening 3 5-15 [facility] Work Phone: Thin prep Papanicolaou smear with manual screening 220 U/L 87-241 [facility] Work Phone: Absolute lymphocyte counton 09-29-2021 Lymphocytes Auto (Unsp spec) [#/Vol] 1.19 10*3/uL 0.83-4.51 [facility] Work Phone: Basophil percentageon 2021 Basophils/100 WBC (Bld) 0.8 % 0-1 [facility] Work Phone: Eosinophils/100 WBC (Bld) 2.7 % 0-5 [facility] Work Phone: Neutrophils (Bld) [#/Vol] 2.0 10*3/uL 2.0-7.7 [facility] Work Phone: Neutrophils/100 WBC (Bld) 55.1 % 47-70 [facility] Work Phone: Testosterone [Mass/Vol] 166 ng/dL 264-916 [facility] Work Phone: Comment on above: Adult male reference interval is based on a population ofhealthy nonobese males (BMI <30) between 19 and 39 yearsold. leighton Moreland.al. JCEM 2017,102;8000-7291. PMID:[id number]. WBC (Bld) [#/Vol] 3.7 10*3/uL 4.4-11.0 [facility] Work Phone: Bilirubin [Mass/Vol] 0.20 mg/dL 0.20-1.[address] [facility] Work Phone: Comment on above: For patients on eltr ombopag therapy, use of Dimension [place] TBIL is not recommended. Chloride [Moles/Vol] 105 mmol/L 98-[address] [facility] Work Phone: Cholesterol [Mass/Vol] 140 mg/dL <200 [facility] Work Phone: Comment on above: <200 mg/dL Desirable 200-240 mg/dL Borderline >240 mg/dL High Risk Glucose [Mass/Vol] 103 mg/dL 74-106 [facility] Work Phone: Comment on above: Fasting Glucose resu lt from 100 to 125 mg/dL suggests IMPAIRED HOMEOSTASIS per A.D.A. criteria. Potassium [Moles/Vol] 4.3 mmol/L 3.5-5.1 [facility] Work Phone: Protein [Mass/Vol] 6.8 g/dL 6.4-8.2 [facility] Work Phone: Sodium [Moles/Vol] 141 mmol/L 136-145 [facility] Work Phone: Triglyceride [Mass/Vol] 55 mg/dL <199 [facility] Work Phone: Comment on above: The drugs N-Acetylcy steine and Metamizole may falsely depress this assay.Serum Triglycerides Reference Interval Normal <150 mg/dL Borderline high 150 - 199 mg/dL High 200 - 499 mg/dL Very High > or = 500 mg/dL Blood erythrocytes count (nu mber/volume)on 09-29-2021 RBC (Bld) [#/Vol] 4.34 10*6/uL 4.6-6.2 [facility] Work Phone: Blood hemoglobin measurement (mass/volume)on 09-29-2021 Hemoglobin (Bld) [Mass/Vol] 13.0 g/dL 13.0-16.5 [facility] Work Phone: Blood lymphocytes/100 leukoc yteson 09-29-2021 Lymphocytes/100 WBC (Bld) 32.4 % 19-41 [facility] Work Phone: Blood monocytes/100 leukocyt eson 09-29-2021 Monocytes/100 WBC (Bld) 9.0 % 0-10 [facility] Work Phone: Blood platelet mean volumeon 09-29-2021 Platelet mean volume (Bld) [Entitic vol] 9.4 fL 6.2-12.0 [facility] Work Phone: Determination of erythrocyte mean corpuscular volume (MCV)on 09-29-2021 MCV (RBC) [Entitic vol] 89.4 fL 80-94 [facility] Work Phone: Direct bilirubinon 2 Bilirubin.direct [Mass/Vol] 0.11 mg/dL 0.00-0.30 [facility] Work Phone: Free testosterone percentage on 09-29-2021 Testosterone Free/Testosterone.total [Mass fraction] 1.05 % 1.50-4.20 [facility] Work Phone: Hematocrit Auto (Bld) [Volum e fraction]on 09-29-2021 Hematocrit (Bld) [Volume fraction] 38.8 % 40-54 [facility] Work Phone: Laboratory - Chemistry and C hemistry - challengeon 09-29-2021 ALP [Catalytic activity/Vol] 59 U/L 45-117 [facility] Work Phone: ALT [Catalytic activity/Vol] 35 U/L 16-61 [facility] Work Phone: [phone] CO2 [Moles/Vol] 30.0 mmol/L 21.0-32.0 [facility] Work Phone: Globulin (S) [Mass/Vol] 3.0 g/dL 2.2-4.2 [facility] Work Phone: Urea nitrogen/Creatinine [Mass ratio] 11.0 mg/mg 10-20 [facility] Work Phone: Laboratory - Hematology and Cell countson 09-29-2021 Erythrocyte distribution width (RBC) [Entitic vol] 42.5 fL 35.1-43.9 [facility] Work Phone: Erythrocyte distribution width (RBC) [Ratio] 12.8 % 11.6-14.6 [facility] Work Phone: Immature granulocytes/100 WBC (Bld) 0.000 % 0.0-0.9 [facility] Work Phone: Comment on above: IG% - Immature Granu locytes (promyelocytes, myelocytes and metamyelocytes) > 1% indicates that a LEFT SHIFT is Present. MCH (RBC) [Entitic mass] 30.0 pg 27.0-32.0 [facility] Work Phone: Nucleated RBC/100 WBC (Bld) [Ratio] 0 % 0-5 [facility] Work Phone: MCHC Auto (RBC) [Mass/Vol]on 09-29-2021 MCHC (RBC) [Mass/Vol] 33.5 g/dL 32-36 [facility] Work Phone: No Panel Informationon 09-29 Percent Free Prostate Specific Ag 0.27 ng/mL N/A [facility] Work Phone: Comment on above: Delores ECLIA methodol ogy. Prostate Specific Antigen Total 0.6 ng/mL 0.0-4.0 [facility] Work Phone: Comment on above: Delores ECLIA methodol ogy.According to the [place] [employer], Serum PSAshould decrease and remain at undetectable levels afterradical prostatectomy. The AUA defines biochemicalrecurrence as an initial PSA value 0.2 ng/mL or greaterfollowed by a subsequent confirmatory PSA value 0.2 ng/mLor greater. Values obtained with different assay methods orkits cannot be used interchangeably. Results cannot beinterpreted as absolute evidence of the presence or absenceof malignant disease. Vitamin D 25-Hydroxy 53.8 ng/mL [facility] Work Phone: Comment on above: Vitamin D 25(OH) Sta tus Range Deficiency <20 ng/mL (50nmol/L) Insufficiency 20 - 30 ng/mL (50 - 75 nmol/L) Sufficiency 30 - 100 ng/mL (75 - 250 nmol/L) Toxicity >100 ng/mL (>250 nmol/L) Estimated GFR (MDRD) Amer 87 mL/min >60 [facility] Work Phone: Comment on above: GFR Calc Estimated GFR (MDRD) Non-Af Amer 72 mL/min >60 [facility] Work Phone: Comment on above: Non- GFR Calc Platelets bldon 09-29-2021 Platelets (Bld) [#/Vol] 179 10*3/uL 150-450 [facility] Work Phone: Serum or plasma albumin ioana urement (mass/volume)on 09-29-2021 Albumin [Mass/Vol] 3.8 g/dL 3.2-5.0 [facility] Work Phone: Serum or plasma albumin/glob ulin mass ratioon 09-29-2021 Albumin/Globulin [Mass ratio] 1.3 {ratio} 0.9-2.4 [facility] Work Phone: Serum or plasma calcium ioana urement (mass/volume)on 09-29-2021 Calcium [Mass/Vol] 9.1 mg/dL 8.5-10.1 [facility] Work Phone: Serum or plasma cholesterol in HDL measurement (mass/volume)on 09-29-2021 Cholesterol in HDL [Mass/Vol] 69 mg/dL >40 [facility] Work Phone: Comment on above: The drugs N-Acetylcy steine and Metamizole may falsely depress this assay. Reference Range HDL <40 mg/dL Low HDL Cholesterol HDL >or= 60 mg/dL High HDL Cholesterol Serum or plasma cholesterol in VLDL measurement (mass/volume)on 09-29-2021 Cholesterol in VLDL [Mass/Vol] 11 mg/dL 5-40 [facility] Work Phone: Serum or plasma creatinine m easurement (mass/volume)on 09-29-2021 Creatinine [Mass/Vol] 1.09 mg/dL 0.70-1.30 [facility] Work Phone: Comment on above: The validity of the calculated GFR & GFRAA in patients over 70 years has not been determined. Clinical correlation is essential. Serum or plasma free prostat e specific antigen/total prostate specific antigen ratioon 09-29-2021 Free PSA/Total PSA [Mass fraction] 45.0 % . [facility] Work Phone: Comment on above: The table below list s the probability of prostate cancer formen with non-suspicious ASHLEY results and total PSA between4 and 10 ng/mL, by patient age (Pranay et al, RADHA 1998,279:1542). % Free PSA 50-64 yr 65-75 yr 0.00-10.00% 56% 55% 10.01-15.00% 24% 35% 15.01-20.00% 17% 23% 20.01-25.00% 10% 20% >25.00% 5% 9%Please note: Pranay et al did not make specific recommendations regarding the use of percent free PSA for any other population of men.Performed at: - [facility] [id number] [place], [place] [id number] Director: Jose Angel Marsk PhD, Phone: [phone] at: - [facility] [id number] Director: Susan Rojas MD, Phone: [phone] Serum or plasma low density lipoprotein (LDL) cholesterol measurement (mass/volume)on 09-29-2021 Cholesterol in LDL [Mass/Vol] 60 mg/dL 0-130 [facility] Work Phone: Serum or plasma testosterone free measurement (mass/volume)on 09-29-2021 Testosterone Free [Mass/Vol] 1.74 ng/dL 5.00-21.00 [facility] Work Phone: Serum or plasma urea nitroge n measurement (mass/volume)on 09-29-2021 Urea nitrogen [Mass/Vol] 12 mg/dL 7-18 [facility] Work Phone: Thin prep Papanicolaou smear with manual screeningon 09-29-2021 Thin prep Papanicolaou smear with manual screening 32 U/L 15-37 [facility] Work Phone: Thin prep Papanicolaou smear with manual screening 6 5-15 [facility] Work Phone: Clinical Summary: Ingris benson 07-03-2021 MC25 OP Hand Invalid Interpretation Code [facility] Work Phone: Basophil percentageon 2021 Bilirubin [Mass/Vol] 0.60 mg/dL 0.20-1.[address] [facility] Work Phone: Comment on above: For patients on eltr ombopag therapy, use of Dimension [place] TBIL is not recommended. Chloride [Moles/Vol] 107 mmol/L 98-[address] [facility] Work Phone: Cholesterol [Mass/Vol] 163 mg/dL <200 [address] [facility] Work Phone: Comment on above: <200 mg/dL Desirable 200-240 mg/dL Borderline >240 mg/dL High Risk Glucose [Mass/Vol] 97 mg/dL 74-106 [facility] Work Phone: Potassium [Moles/Vol] 4.1 mmol/L 3.5-5.1 [address] [facility] Work Phone: Protein [Mass/Vol] 6.9 g/dL 6.4-8.2 [facility] Work Phone: Sodium [Moles/Vol] 139 mmol/L 136-145 [facility] Work Phone: Testosterone [Mass/Vol] 242 ng/dL [phone] [facility] Work Phone: Comment on above: Adult male reference interval is based on a population ofhealthy nonobese males (BMI <30) between 19 and 39 yearsold. Aniceto, et.al. JCEM 2017,102;5910-5951. PMID:[id number]. Triglyceride [Mass/Vol] 76 mg/dL <199 [facility] Work Phone: Comment on above: The drugs N-Acetylcy steine and Metamizole may falsely depress this assay.Serum Triglycerides Reference Interval Normal <150 mg/dL Borderline high 150 - 199 mg/dL High 200 - 499 mg/dL Very High > or = 500 mg/dL Free testosterone percentage on 06-22-2021 Testosterone Free/Testosterone.total [Mass fraction] 2.14 % 1.50-4.20 [facility] Work Phone: Comment on above: Performed at: [facility] [address] [id number] Director: Jose Angel aMrks PhD, Phone: [phone] at: [address] [id number] Director: Susan Rojas MD, Phone: [phone] Laboratory - Chemistry and C hemistry - challengeon 06-22-2021 ALP [Catalytic activity/Vol] 59 U/L 45-117 [facility] Work Phone: ALT [Catalytic activity/Vol] 26 U/L 16-61 [facility] Work Phone: CO2 [Moles/Vol] 28.0 mmol/L 21.0-32.0 [facility] Work Phone: Globulin (S) [Mass/Vol] 3.1 g/dL 2.2-4.2 [facility] Work Phone: Urea nitrogen/Creatinine [Mass ratio] 17.6 mg/mg 10-20 [facility] Work Phone: No Panel Informationon 06-22 Estimated GFR (MDRD) Amer 100 mL/min >60 [facility] Work Phone: Comment on above: GFR Calc Estimated GFR (MDRD) Non-Af Amer 82 mL/min >60 [facility] Work Phone: Comment on above: Non- GFR Calc Thyroid Stimulating Hormone (TSH) 1.71 uIU/mL 0.358-3.74 [facility] Work Phone: Vitamin D 25-Hydroxy 32.0 ng/mL [facility] Work Phone: Comment on above: Vitamin D 25(OH) Sta tus Range Deficiency <20 ng/mL (50nmol/L) Insufficiency 20 - 30 ng/mL (50 - 75 nmol/L) Sufficiency 30 - 100 ng/mL (75 - 250 nmol/L) Toxicity >100 ng/mL (>250 nmol/L) Serum or plasma albumin ioana urement (mass/volume)on 06-22-2021 Albumin [Mass/Vol] 3.8 g/dL 3.2-5.0 [facility] Work Phone: Serum or plasma albumin/glob ulin mass ratioon 06-22-2021 Albumin/Globulin [Mass ratio] 1.2 {ratio} 0.9-2.4 [facility] Work Phone: Serum or plasma calcium ioana urement (mass/volume)on 06-22-2021 Calcium [Mass/Vol] 8.7 mg/dL 8.5-10.1 [facility] Work Phone: Serum or plasma cholesterol in HDL measurement (mass/volume)on 06-22-2021 Cholesterol in HDL [Mass/Vol] 72 mg/dL >40 [facility] Work Phone: Comment on above: The drugs N-Acetylcy steine and Metamizole may falsely depress this assay. Reference Range HDL <40 mg/dL Low HDL Cholesterol HDL >or= 60 mg/dL High HDL Cholesterol Serum or plasma cholesterol in VLDL measurement (mass/volume)on 06-22-2021 Cholesterol in VLDL [Mass/Vol] 15 mg/dL 5-40 [facility] Work Phone: Serum or plasma creatinine m easurement (mass/volume)on 06-22-2021 Creatinine [Mass/Vol] 0.97 mg/dL 0.70-1.30 [facility] Work Phone: Comment on above: The validity of the calculated GFR & GFRAA in patients over 70 years has not been determined. Clinical correlation is essential. Serum or plasma low density lipoprotein (LDL) cholesterol measurement (mass/volume)on 06-22-2021 Cholesterol in LDL [Mass/Vol] 76 mg/dL 0-130 [facility] Work Phone: Serum or plasma testosterone free measurement (mass/volume)on 06-22-2021 Testosterone Free [Mass/Vol] 5.18 ng/dL 5.00-21.00 [facility] Work Phone: Serum or plasma urea nitroge n measurement (mass/volume)on 06-22-2021 Urea nitrogen [Mass/Vol] 17 mg/dL 7-18 [facility] Work Phone: Thin prep Papanicolaou smear with manual screeningon 06-22-2021 Thin prep Papanicolaou smear with manual screening 22 U/L 15-37 [facility] Work Phone: Thin prep Papanicolaou smear with manual screening 4 5-15 [facility] Work Phone: Clinical Summary: Ingris benson 05-22-2021 MC25 OP Hand Invalid Interpretation Code [facility] Work Phone: Iron measurement (mass/mass) on 11-03-2020 Iron (Unsp spec) [Mass/Mass] 81 ug/dL 65-175 [facility] Laboratory - Chemistry and C hemistry - challengeon 11-03-2020 Cobalamin (Vitamin B12) [Mass/Vol] 756 pg/mL 211-911 [facility] Transferrin [Mass/Vol] 239 mg/dL 177-329 [facility] Comment on above: Performed at: [place] [id number] Director: Jose Angel Marks PhD, Phone: [phone] No Panel Informationon 11-03 Total Iron Binding Capacity 304 ug/dL 250-450 [facility] Serum or plasma ferritin merced surement (mass/volume)on 11-03-2020 Ferritin [Mass/Vol] 66 ng/mL 26-388 [facility] Serum or plasma folate measu rement (mass/volume)on 11-03-2020 Folate [Mass/Vol] 25.00 ng/mL 3.1-55.4 [facility] Cells counted Molgen (Bld/Ti ss) [#]on 06-08-2018 Differential Total Cells Counted Not Reportable [facility] Erythrocyte distribution wid th (RBC) [Entitic vol]on 06-08-2018 Red Cell Distribution Width Diff 44.0 fl High 35.1-43.9 [facility] Erythrocyte distribution wid th standard deviationon 06-08-2018 Erythrocyte distribution width (RBC) [Entitic vol] 44.0 fL High 35.1-43.9 [facility] Laboratory - Hematology and Cell countson 06-08-2018 Erythrocyte distribution width (RBC) [Ratio] 14.0 % 11.6-14.6 [facility] Total cell counton 9 Cells counted Molgen (Bld/Tiss) [#] Not Reportable [facility] No Panel Informationon 06-06 Addendum Document Comment . [facility] Comment on above: Protein electrophore sis scan will follow via computer,mail, or promotional marketing agent delivery. Beta-Globulins (ALINA) 1.3 g/dL 0.7-1.[address] [facility] Free [place] Light Chains, Quant 16.3 mg/L 3.3-19.4 [facility] Free [place]/Lambda Light Chain Ratio 1.20 0.26-1.65 [facility] [facility] Comment on above: Performed at: [place] [id number] Director: Jose Angel Marks PhD, Phone: [phone] Immunofixation Screen Comment . [facility] Comment on above: No monoclonality det ected. Protein electrophoresis pane tiffany 06-06-2017 Protein [Mass/Vol] 6.9 g/dL 6.0-8.5 [facility] Serum [id number] measu rement by electrophoresison 06-06-2017 Alpha 1 globulin Elph [Mass/Vol] 0.3 g/dL 0.0-0.4 [facility] Serum globulin measurement ( mass/volume)on 06-06-2017 Globulin (S) [Mass/Vol] 3.3 g/dL 2.2-3.9 [facility] Serum or plasma IgA measurem ent (mass/volume)on 06-06-2017 IgA [Mass/Vol] 228 mg/dL 61-437 [facility] Serum or plasma IgG measurem ent (mass/volume)on 06-06-2017 IgG [Mass/Vol] 845 mg/dL 700-1600 [facility] Serum or plasma IgM measurem ent (mass/volume)on 06-06-2017 IgM [Mass/Vol] 36 mg/dL 20-172 [facility] Serum or plasma albumin ioana urement (moles/volume)on 06-06-2017 Albumin [Moles/Vol] 3.6 g/dL 2.9-4.4 [facility] Serum or plasma immunoglobul in free lambda light chains measurement (mass/volume)on 06-06-2017 Immunoglobulin light chains.lambda.free [Mass/Vol] 13.6 mg/L 5.7-26.3 [facility] Thin prep Papanicolaou smear with manual screeningon 06-06-2017 Thin prep Papanicolaou smear with manual screening 0.9 g/dL 0.4-1.0 [facility] Thin prep Papanicolaou smear with manual screening See comment [facility] Comment on above: NOT OBSERVED Thin prep Papanicolaou smear with manual screening 1.1 0.7-1.7 [facility] Office Visiton 12-27-2016 Documentation of current medications (procedure) Done Invalid Interpretation Code [facility] Work Phone: [phone] Tobacco smoking status NHIS Never Invalid Interpretation Code [facility] Work Phone: [phone] Tobacco use CPHS Never smoker Invalid Interpretation Code [facility] Work Phone: [phone] Lab Report: DHEA Sulfateon 0 08-04-2016 DHEA SULF 4020 1646 ng/mL Invalid Interpretation Code Units converted. See lab report for original value. [facility] Work Phone: [phone] Lab Report: CBC W/Diff, Auto matedon 08-02-2016 Absolute Neut 2.9 X10 3/UL Invalid Interpretation Code 2.0-7.7 [facility] Work Phone: [phone] Basophils/100 WBC Auto (Bld) 0.4 % Invalid Interpretation Code 0-1 [facility] Work Phone: [phone] Eosinophils/100 leukocytes 1.7 % Invalid Interpretation Code 0-5 [facility] Work Phone: [phone] Erythrocyte distribution width Auto Ratio (RBC) 14.3 % Invalid Interpretation Code 11.6-14.6 [facility] Work Phone: [phone] Erythrocytes (RBC) 4.82 10*6/uL Invalid Interpretation Code 4.6-6.2 [facility] Work Phone: [phone] Hematocrit (HCT) 40.0 % Invalid Interpretation Code 40-54 [facility] Work Phone: [phone] Hemoglobin mass conc (Bld) 13.8 g/dL Invalid Interpretation Code 13.0-16.5 [facility] Work Phone: [phone] Immature granulocytes/100 WBC (Bld) 0.200 % Invalid Interpretation Code 0.0-0.9 [facility] Work Phone: [phone] Lymphocytes 1.39 X10 3/UL Invalid Interpretation Code 0.83-4.51 [facility] Work Phone: [phone] Lymphocytes/100 leukocytes 29.3 % Invalid Interpretation Code 19-41 [facility] Work Phone: [phone] MCH 28.6 pg Invalid Interpretation Code 27.0-32.0 [facility] Work Phone: [phone] MCHC mass conc (RBC) 34.5 G/GL Invalid Interpretation Code 32-36 [facility] Work Phone: [phone] MCV 83.0 fL Invalid Interpretation Code 80-94 [facility] Work Phone: [phone] Monocytes/100 leukocytes 7.6 % Invalid Interpretation Code 0-10 [facility] Work Phone: [phone] Neutrophils/100 WBC Auto (Bld) 60.8 % Invalid Interpretation Code 47-70 [facility] Work Phone: [phone] Platelets 213 10*3/mm3 Invalid Interpretation Code 150-450 [facility] Work Phone: [phone] PMV by Jorge 9.7 fL Invalid Interpretation Code 6.2-12.0 [facility] Work Phone: [phone] RDW SD 42.7 fL Invalid Interpretation Code 35.1-43.9 [facility] Work Phone: [phone] WBC (Leukocytes) 4.8 10*3/uL Invalid Interpretation Code 4.4-11.0 [facility] Work Phone: [phone] Lab Report: [facility] Profil 08-02-2016 Alanine aminotransferase (ALT) 31 U/L Invalid Interpretation Code 12-78 [facility] Work Phone: [phone] Albumin 3.5 g/dL Invalid Interpretation Code 3.4-5.0 [facility] Work Phone: [phone] Albumin/Globulin Ratio 0.9 {ratio} Invalid Interpretation Code 0.9-2.4 [facility] Work Phone: [phone] Alkaline phosphatase (ALP) 115 U/L Invalid Interpretation Code 45-117 [facility] Work Phone: [phone] Anion gap 7 mmol/L Invalid Interpretation Code 5-15 [facility] Work Phone: [phone] Aspartate aminotransferase (AST) 24 U/L Invalid Interpretation Code 15-37 [facility] Work Phone: [phone] Bilirubin (total) 0.40 mg/dL Invalid Interpretation Code 0.20-1.00 [facility] Work Phone: [phone] BUN/Creatinine Ratio 12.6 RATIO Invalid Interpretation Code 10-20 [facility] Work Phone: [phone] Calcium 8.9 mg/dL Invalid Interpretation Code 8.5-10.1 [facility] Work Phone: [phone] Chloride 106 mmol/L Invalid Interpretation Code 98-107 [facility] Work Phone: [phone] CO2 28.0 mmol/L Invalid Interpretation Code 21.0-32.0 [facility] Work Phone: [phone] Creatinine 0.95 mg/dL Invalid Interpretation Code 0.70-1.30 [facility] Work Phone: [phone] eGFR (non-black) 85 mL/min/{1.73_m2} Invalid Interpretation Code >60 [facility] Work Phone: [phone] eGFR (non-black) 103 mL/min/{1.73_m2} Invalid Interpretation Code >60 [facility] Work Phone: [phone] Globulin 3.7 g/dL High 2.3-3.5 [facility] Work Phone: [phone] Glucose mass conc 103 mg/dL Invalid Interpretation Code 70-110 [facility] Work Phone: [phone] Potassium molar conc 4.3 mmol/L Invalid Interpretation Code 3.5-5.1 [facility] Work Phone: [phone] Protein 7.2 g/dL Invalid Interpretation Code 6.4-8.2 [facility] Work Phone: [phone] Sodium 141 mmol/L Invalid Interpretation Code 136-145 [facility] Work Phone: [phone] Urea nitrogen 12 mg/dL Invalid Interpretation Code 7-18 [facility] Work Phone: [phone] Lab Report: LDHon 08-02-2016 LDH 221 U/L Invalid Interpretation Code 87-241 [facility] Work Phone: [phone] Lab Report: Lipid Profileon 08-02-2016 Cholesterol 192 mg/dL Invalid Interpretation Code 200 [facility] Work Phone: [phone] HDL Cholesterol 61 mg/dL Invalid Interpretation Code [facility] Work Phone: [phone] LDL Cholesterol 113 mg/dL Invalid Interpretation Code 0-130 [facility] Work Phone: [phone] Triglyceride 92 mg/dL Invalid Interpretation Code [facility] Work Phone: [phone] very low density lipoproteins 18 mg/dL Invalid Interpretation Code 5-40 [facility] Work Phone: [phone] Lab Report: Uric Acidon 07-13 Urate 4.2 mg/dL Invalid Interpretation Code 3.5-7.2 [facility] Work Phone: [phone] Chart Maintenanceon 07-19-19 17 Triglyceride 92 mg/dL Invalid Interpretation Code [facility] Work Phone: [phone] Office Visit: [facility] [place] [facility] 07-12-2016 Adolescent depression screening assessment Adolescent depression screening assessment Invalid Interpretation Code [facility] Work Phone: [phone] Adult depression screening assessment Adult depression screening assessment Invalid Interpretation Code [facility] Work Phone: [phone] Fall risk assessment No Invalid Interpretation Code [facility] Work Phone: [phone] Lab Report: Basic Metabolic Profile (BMP)on 03-24-2016 Creatinine 80.10 mL/min Invalid Interpretation Code [facility] Work Phone: [phone] Microbiology: MRSA/SAID SCRE ENon 03-23-2016 MRSA+SAID SCRN . Invalid Interpretation Code [facility] Work Phone: [phone] Lab Report: Erythrocyte Sed Rateon 08-18-2015 Erythrocyte sedimentation rate 23 mm/h High 0-20 [facility] Work Phone: [phone] Office Visiton 2015 Smoking cessation education (procedure) yes Invalid Interpretation Code [facility] Work Phone: [phone] Replaced Document: (P) [place] Lambda Lt Chn Ser. Mon.on 03-20-2015 FR KAPPA LT CHN 1.117 mg/dL Invalid Interpretation Code Units converted. See lab report for original value. [facility] Work Phone: [phone] FR LAMBDA LT CH 1.413 mg/dL Invalid Interpretation Code Units converted. See lab report for original value. [facility] Work Phone: [phone] KAPPA/LAMBDA % 0.79 Invalid Interpretation Code 0.26-1.65 [facility] Work Phone: [phone] Lab Report: Testosterone, To teresa / Freeon 09-19-2014 TESTOSTER %FREE 3.01 % Invalid Interpretation Code 1.50-4.20 [facility] Work Phone: [phone] Testosterone 1127 ng/dL Invalid Interpretation Code 348-1197 [facility] Work Phone: [phone] testosterone, serum, free 339.2 pg/mL High Units converted. See lab report for original value. [facility] Work Phone: [phone] Lab Report: CBC W/Diff, Auto - EPLAB Onlyon 09-18-2014 Absolute Neut 3.5 X10 3/UL Invalid Interpretation Code 2.0-7.7 [facility] Work Phone: [phone] Lab Report: CBC W/Diff, Auto matedon 09-13-2014 Lymphocytes 1.70 X10 3/UL Invalid Interpretation Code 0.83-4.51 [facility] Work Phone: [phone] Lab Report: PSA,Total - Sary al Screenon 09-13-2014 PSA,TOT SCREEN 0.78 ng/mL Invalid Interpretation Code 0.00-4.00 [facility] Work Phone: [phone] Lab Report: Thyroid Stim Hor celina (TSH)on 09-13-2014 Thyroid stimulating hormone (TSH) 1.40 u[iU]/mL Invalid Interpretation Code 0.358-3.74 [facility] Work Phone: [phone] Lab Report: ALINA + Protein El ect, Serumon 09-03-2014 IgM 30 mg/dL Low 40-230 [facility] Work Phone: [phone] M-SPIKE . Invalid Interpretation Code [facility] Work Phone: [phone] Albumin 4.1 g/dL Invalid Interpretation Code 3.2-5.6 [facility] Work Phone: [phone] Alpha 2 globulin 0.5 g/dL Invalid Interpretation Code 0.4-1.2 [facility] Work Phone: [phone] CVHHG-4-MDQC 0.2 g/dL Invalid Interpretation Code 0.1-0.4 [facility] Work Phone: [phone] BETA GLOBULIN 1.0 g/dL Invalid Interpretation Code 0.6-1.3 [facility] Work Phone: [phone] Gamma globulin 700 mg/dL Invalid Interpretation Code Units converted. See lab report for original value. [facility] Work Phone: [phone] IgA 203 mg/dL Invalid Interpretation Code 91-414 [facility] Work Phone: [phone] IgG 753 mg/dL Invalid Interpretation Code 700-1600 [facility] Work Phone: [phone] Lab Report: LDHon 06-19-2014 Lactate dehydrogenase (LDH) 211 U/L Invalid Interpretation Code 84-246 [facility] Work Phone: [phone] Vital Signs Date Time Vital Sign Value Performing Clinician Facility 07-19-2024 15:29-0400 Body height 167.[address] True Ibarra DO Work Phone: [facility] 07-19-2024 15:29-0400 Body mass index (BMI) [Ratio] 24 kg/m2 Dr. True Ibarra DO Work Phone: [facility] [place] 07-19-2024 15:29-0400 Body temperature 98.8 [degF] Dr. True Ibarra DO Work Phone: [facility] 07-19-2024 15:29-0400 Body weight 67.[address] True Ibarra DO Work Phone: [facility] 07-19-2024 15:29-0400 Diastolic blood pressure 75 mm[Hg] Dr. True Ibarra DO Work Phone: [facility] 07-19-2024 15:29-0400 Heart rate 68 /min Dr. True Ibarra DO Work Phone: [facility] 07-19-2024 15:29-0400 Respiratory rate 14 /min Dr. True Ibarra DO Work Phone: [facility] 07-19-2024 15:29-0400 SaO2% (BldA) [Mass fraction] 98 % Dr. True Ibarra DO Work Phone: [facility] 07-19-2024 15:29-0400 Systolic blood pressure 133 mm[Hg] Dr. True Ibarra DO Work Phone: [facility] 04-26-2024 15:54-0500 Body height 167.[address] True Ibarra DO Work Phone: [facility] 04-26-2024 15:54-0500 Body mass index (BMI) [Ratio] 26.3 kg/m2 Dr. True Ibarra DO Work Phone: [facility] 04-26-2024 15:54-0500 Body temperature 97.8 [degF] Dr. True Ibarra DO Work Phone: [facility] 04-26-2024 15:54-0500 Body weight 73.[address] True Ibarra DO Work Phone: [facility] 04-26-2024 15:54-0500 Diastolic blood pressure 68 mm[Hg] Dr. True Ibarra DO Work Phone: [facility] 04-26-2024 15:54-0500 Heart rate 72 /min Dr. True Ibarra DO Work Phone: [facility] 04-26-2024 15:54-0500 Respiratory rate 16 /min Dr. True Ibarra DO Work Phone: [facility] 04-26-2024 15:54-0500 SaO2% (BldA) [Mass fraction] 99 % Dr. True Ibarra DO Work Phone: [facility] 04-26-2024 15:54-0500 Systolic blood pressure 134 mm[Hg] Dr. Ture Ibarra DO Work Phone: [facility] 04-04-2024 13:26-0500 Body mass index (BMI) [Ratio] 25.9 kg/m2 Dr. True Ibarra DO Work Phone: [facility] 04-04-2024 13:26-0500 Body temperature 98.7 [degF] Dr. True Ibarra DO Work Phone: [facility] [place] 04-04-2024 13:26-0500 Body weight 72.[address] True Ibarra DO Work Phone: [facility] 04-04-2024 13:26-0500 Diastolic blood pressure 66 mm[Hg] Dr. True Ibarra DO Work Phone: [facility] 04-04-2024 13:26-0500 Heart rate 75 /min Dr. True Ibarra DO Work Phone: [facility] 04-04-2024 13:26-0500 Respiratory rate 18 /min Dr. True Ibarra DO Work Phone: [facility] 04-04-2024 13:26-0500 SaO2% (BldA) [Mass fraction] 100 % Dr. True Ibarra DO Work Phone: [facility] [place] 04-04-2024 13:26-0500 Systolic blood pressure 137 mm[Hg] Dr. True Ibarra DO Work Phone: [facility] [place] 03-22-2024 08:30-0500 Body mass index (BMI) [Ratio] 25 kg/m2 Dr. True Ibarra DO Work Phone: [facility] [place] 03-22-2024 08:30-0500 Body weight 70.[address] True Ibarra DO Work Phone: [facility] [place] 03-22-2024 08:30-0500 Diastolic blood pressure 67 mm[Hg] Dr. True Ibarra DO Work Phone: [facility] [place] 03-22-2024 08:30-0500 Heart rate 62 /min Dr. True Ibarra DO Work Phone: [facility] [place] 03-22-2024 08:30-0500 Respiratory rate 16 /min Dr. True Ibarra DO Work Phone: [facility] [place] 03-22-2024 08:30-0500 Systolic blood pressure 117 mm[Hg] Dr. True Ibarra DO Work Phone: [facility] [place] 03-21-2024 08:07-0500 Body mass index (BMI) [Ratio] 25 kg/m2 Dr. True Ibarra DO Work Phone: [facility] [place] 03-21-2024 08:07-0500 Body weight 70.[address] True Ibarra DO Work Phone: [facility] [place] 03-24-2023 09:00-0500 Body height 167.[address] True Ibarra Work Phone: [facility] 03-24-2023 09:00-0500 Body mass index (BMI) [Ratio] 26 kg/m2 Dr. True Ibarra Work Phone: [facility] [place] 03-24-2023 09:00-0500 Body weight 73.[address] True Ibarra Work Phone: [facility] [place] 03-24-2023 09:00-0500 Diastolic blood pressure 65 mm[Hg] Dr. True Ibarra Work Phone: [facility] [place] 03-24-2023 09:00-0500 Heart rate 60 /min Dr. True Ibarra Work Phone: [facility] [place] 03-24-2023 09:00-0500 Respiratory rate 14 /min Dr. True Ibarra Work Phone: [facility] 03-24-2023 09:00-0500 Systolic blood pressure 119 mm[Hg] Dr. True Ibarra Work Phone: [facility] 03-08-2023 14:27-0500 Body height 167.[address] True Ibarra Work Phone: [facility] 12-26-2023 14:27-0500 Body mass index (BMI) [Ratio] 26.2 kg/m2 Dr. True Ibarra Work Phone: [facility] [place] 03-08-2023 14:27-0500 Body temperature 99.2 [degF] Dr. True Ibarra Work Phone: [facility] 03-08-2023 14:27-0500 Body weight 73.[address] True Ibarra Work Phone: [facility] 03-08-2023 14:27-0500 Diastolic blood pressure 76 mm[Hg] Dr. True Ibarra Work Phone: [facility] 03-08-2023 14:27-0500 Heart rate 64 /min Dr. True Ibarra Work Phone: [facility] 03-08-2023 14:27-0500 Respiratory rate 18 /min Dr. True Ibarra Work Phone: [facility] 03-08-2023 14:27-0500 SaO2% (BldA) [Mass fraction] 100 % Dr. True Ibarra Work Phone: [facility] 03-08-2023 14:27-0500 Systolic blood pressure 152 mm[Hg] Dr. True Ibarra Work Phone: [facility] 02-21-2023 09:09-0500 Body height 167.[address] True Ibarra Work Phone: [facility] 02-21-2023 09:08-0500 Body mass index (BMI) [Ratio] 26.2 kg/m2 Dr. True Ibarra Work Phone: [facility] [place] 02-21-2023 09:08-0500 Body temperature 97.5 [degF] Dr. True Ibarra Work Phone: [facility] 02-21-2023 09:08-0500 Body weight 73.[address] True Ibarra Work Phone: [facility] [place] 02-21-2023 09:08-0500 Diastolic blood pressure 81 mm[Hg] Dr. True Ibarra Work Phone: [facility] 02-21-2023 09:08-0500 Heart rate 71 /min Dr. True Ibarra Work Phone: [facility] 02-21-2023 09:08-0500 Respiratory rate 18 /min Dr. True Ibarra Work Phone: [facility] 02-21-2023 09:08-0500 SaO2% (BldA) [Mass fraction] 98 % Dr. True Ibarra Work Phone: [facility] 02-21-2023 09:08-0500 Systolic blood pressure 141 mm[Hg] Dr. True Ibarra Work Phone: [facility] 11-08-2022 15:03-0400 Body height 167.[address] True Ibarra Work Phone: [facility] 11-08-2022 15:00-0400 Body mass index (BMI) [Ratio] 26.6 kg/m2 Dr. True Ibarra Work Phone: [facility] 11-08-2022 15:00-0400 Body temperature 99.6 [degF] Dr. True Ibarra Work Phone: [facility] 11-08-2022 15:00-0400 Body weight 75.[address] True Ibarra Work Phone: [facility] 11-08-2022 15:00-0400 Diastolic blood pressure 72 mm[Hg] Dr. True Ibarra Work Phone: [facility] 11-08-2022 15:00-0400 Heart rate 76 /min Dr. True Ibarra Work Phone: [facility] 11-08-2022 15:00-0400 Respiratory rate 18 /min Dr. True Ibarra Work Phone: [facility] 11-08-2022 15:00-0400 SaO2% (BldA) [Mass fraction] 98 % Dr. True Ibarra Work Phone: [facility] 11-08-2022 15:00-0400 Systolic blood pressure 149 mm[Hg] Dr. True Ibarra Work Phone: [facility] 09-08-2022 08:56-0400 Body height 167.[address] True Ibarra Work Phone: [facility] 09-08-2022 08:55-0400 Body mass index (BMI) [Ratio] 27.1 kg/m2 Dr. True Ibarra Work Phone: [facility] 09-08-2022 08:55-0400 Body weight 76.[address] True Ibarra Work Phone: [facility] 09-08-2022 08:55-0400 Diastolic blood pressure 56 mm[Hg] Dr. True Ibarra Work Phone: [facility] 09-08-2022 08:55-0400 Heart rate 73 /min Dr. True Ibarra Work Phone: [facility] 09-08-2022 08:55-0400 Respiratory rate 18 /min Dr. True Ibarra Work Phone: [facility] 09-08-2022 08:55-0400 SaO2% (BldA) [Mass fraction] 100 % Dr. True Ibarra Work Phone: [facility] 09-08-2022 08:55-0400 Systolic blood pressure 111 mm[Hg] Dr. True Ibarra Work Phone: [facility] 03-10-2022 08:29-0500 Body height 167.[address] True Ibarra Work Phone: [facility] 03-10-2022 08:29-0500 Body mass index (BMI) [Ratio] 23.1 kg/m2 Dr. True Ibarra Work Phone: [facility] 03-10-2022 08:29-0500 Body weight 73.[address] True Ibarra Work Phone: [facility] 03-10-2022 08:29-0500 Diastolic blood pressure 76 mm[Hg] Dr. True Ibarra Work Phone: [facility] 03-10-2022 08:29-0500 Heart rate 63 /min Dr. True Ibarra Work Phone: [facility] 03-10-2022 08:29-0500 Respiratory rate 18 /min Dr. True Ibarra Work Phone: [facility] 03-10-2022 08:29-0500 SaO2% (BldA) [Mass fraction] 100 % Dr. True Ibarra Work Phone: [facility] 03-10-2022 08:29-0500 Systolic blood pressure 136 mm[Hg] Dr. True Ibarra Work Phone: [facility] 12-08-2021 14:29-0400 Body height 167.[address] True Ibarra Work Phone: [facility] Work Phone: 11-09-2021 14:59-0400 Body height 167.[address] True Ibarra Work Phone: [facility] Work Phone: 11-09-2021 14:59-0400 Body mass index (BMI) [Ratio] 26.3 kg/m2 Dr. True Ibarra Work Phone: [facility] Work Phone: 11-09-2021 14:59-0400 Body weight 73.[address] True Ibarra Work Phone: [facility] Work Phone: 11-09-2021 14:59-0400 Diastolic blood pressure 64 mm[Hg] Dr. True Ibarra Work Phone: [facility] Work Phone: 11-09-2021 14:59-0400 Heart rate 60 /min Dr. True Ibarra Work Phone: [facility] Work Phone: 11-09-2021 14:59-0400 Respiratory rate 16 /min Dr. True Ibarra Work Phone: [facility] Work Phone: 11-09-2021 14:59-0400 Systolic blood pressure 128 mm[Hg] Dr. True Ibarra Work Phone: [facility] Work Phone: 11-09-2021 14:47-0400 Body mass index (BMI) [Ratio] 26.6 kg/m2 Dr. True Ibarra Work Phone: [facility] Work Phone: 11-09-2021 14:47-0400 Body temperature 98.7 [degF] Dr. True Ibarra Work Phone: [facility] Work Phone: 11-09-2021 14:47-0400 Body weight 74.[address] True Ibarra Work Phone: [facility] Work Phone: 11-09-2021 14:47-0400 Diastolic blood pressure 69 mm[Hg] Dr. Treu Ibarra Work Phone: [facility] Work Phone: 11-09-2021 14:47-0400 Heart rate 65 /min Dr. True Ibarra Work Phone: [facility] Work Phone: 11-09-2021 14:47-0400 Respiratory rate 15 /min Dr. True Ibarra Work Phone: [facility] Work Phone: 11-09-2021 14:47-0400 SaO2% (BldA) [Mass fraction] 99 % Dr. True Ibarra Work Phone: [facility] Work Phone: 11-09-2021 14:47-0400 Systolic blood pressure 118 mm[Hg] Dr. True Ibarra Work Phone: [facility] Work Phone: 05-29-2021 12:50-0400 Body height 167.[address] True Ibarra Work Phone: [facility] Work Phone: 05-26-2021 08:32-0400 Body mass index (BMI) [Ratio] 27.1 kg/m2 Dr. True Ibarra Work Phone: [facility] Work Phone: 05-26-2021 08:32-0400 Body weight 76.[address] True Ibarra Work Phone: [facility] Work Phone: 05-26-2021 08:32-0400 Diastolic blood pressure 73 mm[Hg] Dr. True Ibarra Work Phone: [facility] Work Phone: 05-26-2021 08:32-0400 Heart rate 58 /min Dr. True Ibarra Work Phone: [facility] Work Phone: 05-26-2021 08:32-0400 Respiratory rate 16 /min Dr. True Ibarra Work Phone: [facility] Work Phone: 05-26-2021 08:32-0400 SaO2% (BldA) [Mass fraction] 100 % Dr. True Ibarra Work Phone: [facility] Work Phone: 05-26-2021 08:32-0400 Systolic blood pressure 136 mm[Hg] Dr. True Ibarra Work Phone: [facility] Work Phone: 07-28-2020 10:31-0400 Body mass index (BMI) [Ratio] 24.5 kg/m2 Dr. True Ibarra Work Phone: [facility] 06-08-2018 13:46-0400 Body temperature 98.7 [degF] Dr. True Ibarra Work Phone: [facility] 06-08-2018 13:46-0400 Body weight 86.[address] True Ibarra Work Phone: [facility] Work Phone: 06-08-2018 13:46-0400 Diastolic blood pressure 83 mm[Hg] Dr. True Ibarra Work Phone: [facility] 06-08-2018 13:46-0400 Heart rate 69 /min Dr. True Ibarra Work Phone: [facility] 06-08-2018 13:46-0400 Respiratory rate 14 /min Dr. True Ibarra Work Phone: [facility] 06-08-2018 13:46-0400 SaO2% (BldA) [Mass fraction] 98 % Dr. True Ibarra Work Phone: [facility] 06-08-2018 13:46-0400 Systolic blood pressure 145 mm[Hg] Dr. True Ibarra Work Phone: [facility] 07-12-2016 08:38-0400 BMI (Body Mass Index) 26.36 kg/m2 [facility] Work Phone: 07-12-2016 08:38-0400 Body Temperature 98 [degF] [facility] Work Phone: 07-12-2016 08:38-0400 Body Temperature 98.01 [degF] [facility] Work Phone: 07-12-2016 08:38-0400 BP Diastolic 75 mm[Hg] [facility] Work Phone: 07-12-2016 08:38-0400 BP Systolic 135 mm[Hg] [facility] Work Phone: 07-12-2016 08:38-0400 Height 179.07 cm [facility] Work Phone: 07-12-2016 08:38-0400 Pulse (Heart Rate) 75 /min [facility] Work Phone: 07-12-2016 08:38-0400 Respiratory Rate 16 /min [facility] Work Phone: 07-12-2016 08:38-0400 Weight 84.55 kg [facility] Work Phone: 09-16-2015 10:27-0400 BSA (Body Surface Area) 2.12 m2 [facility] Work Phone: NEGATED: Highlighted [id number] 08:26-0400 Body height 175.26 cm Salud Ziats AT [facility] Work Phone: NEGATED: Highlighted [id number] 08:26-0400 Body height 175 cm Slaud Ziats AT [facility] Work Phone: NEGATED: Highlighted [id number] 08:26-0400 Body mass index (BMI) [Ratio] 23.71 kg/m2 Salud Ziats AT [facility] Work Phone: NEGATED: Highlighted [id number] 08:26-0400 Body weight 72.58 kg Salud King AT [facility] Work Phone: NEGATED: Highlighted [id number] 08:26-0400 Body weight 73 kg Salud King AT [facility] Work Phone: NEGATED: Highlighted [id number] 09:16-0500 Body height 175.26 cm Florence Diesch [employer] [facility] Work Phone: NEGATED: Highlighted [id number] 09:16-0500 Body height 175 cm Florence Diesch [employer] [facility] Work Phone: NEGATED: Highlighted [id number] 09:16-0500 Body mass index (BMI) [Ratio] 23.71 kg/m2 Florence Diesch [employer] [facility] Work Phone: NEGATED: Highlighted [id number] 09:16-0500 Body weight 72.58 kg Florence Diesch [employer] [facility] Work Phone: NEGATED: Highlighted [id number] 09:16-0500 Body weight 73 kg Florence Diesch [employer] [facility] Work Phone: Encounters Encounter Date Encounter Type Care Provider Facility Start: 01-10-2025 End: 01-10-2025 ambulatory True Ibarra Facility:[facility] Start: 12-04-2024 End: 12-04-[address] True Ibarra DO Work Phone: -[facility] Start: 12-04-2024 End: 12-04-[address] Holly Arzola MD -[facility] Work Phone: Start: 12-04-2024 End: 12-04-2024 ambulatory Holly Arzola Facility:[facility] Start: 10-08-2024 End: 10-08-[address] True Ibarra DO Work Phone: -[facility] Start: 10-08-2024 End: 10-08-[address] Holly Arzola MD -[facility] Work Phone: Start: 10-08-2024 End: 10-08-2024 ambulatory [facility] Facility:[facility] Start: 09-28-2024 End: 09-28-[address] True Ibarra DO Work Phone: -Physical Therapy Start: 09-28-2024 End: 09-28-[address] Reginaldo Blank DO -Physical Therapy Work Phone: Start: 07-19-2024 End: 07-19-[address] Reginaldo Nava MD -[facility] Work Phone: Start: 07-19-2024 End: 07-19-2024 ambulatory [facility] Facility:[facility] Start: 07-19-[address] Reginaldo Nava MD -[facility] Start: 07-05-2024 End: 07-05-[address] Holly Arzola MD -[facility] Work Phone: Start: 07-05-2024 End: 07-05-2024 ambulatory [facility] Facility:[facility] Start: 07-02-2024 End: 07-02-[address] Reginaldo Blank DO -[facility] Work Phone: Start: 07-02-2024 End: 07-02-2024 ambulatory [facility] Facility:[facility] Start: 06-06-2024 End: 06-06-[address] True Ibarra DO Work Phone: [facility] Work Phone: Start: 06-06-2024 End: 06-06-[address] Reginaldo Blank DO -Physical Therapy Work Phone: Start: 04-26-2024 End: 04-26-2024 Patient encounter procedure Ilsa Santillan NP-C -[facility] Work Phone: Start: 04-26-2024 End: 04-26-2024 ambulatory [facility] Facility:[facility] Start: 04-26-2024 End: 04-26-2024 ambulatory [facility] Facility:[facility] Start: 04-23-2024 End: 04-23-[address] Holly Arzola MD -[facility] Work Phone: Start: 04-23-2024 End: 04-23-2024 ambulatory [facility] Facility:[facility] Start: 04-11-2024 End: 04-11-[address] Reginaldo Blank DO -[facility] Work Phone: Start: 04-11-2024 End: 04-11-2024 [facility] Start: 04-04-[address] Reginaldo Nava MD -[facility] Start: 04-04-2024 End: 04-04-[address] Reginaldo Nvaa MD -[facility] Work Phone: Start: 04-04-2024 End: 04-04-2024 ambulatory [facility] Facility:[facility] Start: 03-22-2024 End: 03-22-2024 Patient encounter procedure Cody Ryder NP-M[facility] -[facility] Work Phone: Start: 03-22-2024 End: 03-22-2024 ambulatory Cody Ryder Facility:[facility] Start: 03-21-2024 End: 03-21-[address] [facility] Work [facility]: Start: 03-21-2024 End: 03-21-2024 ambulatory [facility] Facility:[facility] Start: 01-31-2024 End: 01-31-2024 ambulatory [facility] Facility:[facility] Start: 07-08-[address] True Ibarra Work Phone: [facility]-Physical Therapy Work Phone: Start: 07-06-2023 End: 07-06-[address] True Ibarra Work Phone: [facility] Work Phone: Start: 07-06-2023 End: 07-06-[address] True Ibarra Work Phone: [facility] Work Phone: Start: 05-13-[address] [facility] Work [facility]: Start: 05-10-2023 End: 05-10-[address] True Ibarra Work Phone: [facility] Work Phone: Start: 05-10-2023 End: 05-10-[address] True Ibarra Work Phone: [facility] Work Phone: Start: 03-24-2023 End: 03-24-[address] True Ibarra Work Phone: [facility] Work Phone: Start: 03-15-2023 End: 03-15-[address] True Ibarra Work Phone: [facility] Work Phone: Start: 03-15-2023 End: 03-15-[address] True Ibarra Work Phone: [facility] Work Phone: Start: 03-08-2023 End: 03-08-[address] True Ibarra Work Phone: [facility] Work Phone: Start: 03-03-2023 End: 03-03-[address] True Ibarra Work Phone: [facility] Work Phone: Start: 03-02-2023 End: 03-02-[address] True Ibarra Work Phone: [facility] Work Phone: Start: 02-21-[address] True Ibarra Work Phone: [facility] Start: 02-21-2023 End: 02-21-[address] True Ibarra Work Phone: [facility] Work Phone: Start: 02-16-2023 End: 02-16-[address] True Ibarra Work Phone: [facility] Work Phone: Start: 02-16-2023 End: 02-16-[address] True Ibarra Work Phone: [facility] Work Phone: Start: 02-11-2023 Non-patient / Non-visit Dr. Jose Ibarra Work Phone: [facility] Work Phone: Start: 02-10-2023 Non-patient / Non-visit Dr. Jose Ibarra Work Phone: [facility] Start: 02-10-2023 End: 02-10-[address] True Ibarra Work Phone: [facility] Work Phone: Start: 02-10-2023 End: 02-10-[address] [facility] Work [facility]: Start: 01-05-2023 End: 01-05-[address] True Ibarra Work Phone: [facility] Work Phone: Start: 01-05-2023 End: 01-05-[address] [facility]bar[facility] Work Phone: Start: 01-05-2023 End: 01-05-[address] True Ibarra Work Phone: [facility] Work Phone: Start: 12-30-2022 End: 12-30-[address] True Ibarra Work Phone: [facility] Work Phone: Start: 12-30-2022 End: 12-30-[address] [facility]bar[facility] Work Phone: Start: 12-29-2022 End: 12-29-[address] True Ibarra Work Phone: [facility] Work Phone: Start: 12-29-2022 End: 12-29-[address] [facility]bar[facility] Start: 12-20-2022 End: 12-20-[address] True Ibarra Work Phone: [facility] Work Phone: Start: 11-17-2022 End: 11-17-[address] True Ibarra Work Phone: [facility] Work Phone: Start: 11-17-2022 End: 11-17-[address] True Ibarra Work Phone: [facility] Work Phone: Start: 11-09-2022 End: 11-09-[address] True Ibarra Work Phone: [facility] Work Phone: Start: 11-09-2022 End: 11-09-[address] True Ibarra Work Phone: [facility] Start: 11-08-2022 End: 11-08-[address] True Ibarra Work Phone: [facility] Work Phone: Start: 11-08-[address] True Ibarra Work Phone: [facility] Start: 10-08-2022 End: 10-08-[address] True Ibarra Work Phone: [facility] Work Phone: Start: 09-08-2022 End: 09-08-[address] True Ibarra Work Phone: [facility] Work Phone: Start: 08-25-2022 End: 08-25-[address] True Ibarra Work Phone: [facility] Work Phone: Start: 08-02-2022 End: 08-02-[address] True Ibarra Work Phone: [facility] Work Phone: Start: 08-02-2022 End: 08-02-[address] [facility] Start: 05-17-2022 End: 05-17-[address] True Ibarra Work Phone: [facility], [facility] Start: 05-05-2022 End: 05-05-[address] True Ibarra Work Phone: [facility] Start: 04-29-2022 End: 04-29-[address] True Ibarra Work Phone: [facility] Work Phone: Start: 04-29-2022 End: 04-29-[address] True Ibarra Work Phone: [facility] Start: 04-19-2022 End: 04-19-[address] True Ibarra Work Phone: [facility] Work Phone: Start: 04-19-2022 End: 04-19-[address] [facility]bar[facility] Start: 04-15-2022 End: 04-15-[address] True Ibarra Work Phone: [facility] Work Phone: Start: 04-15-2022 End: 04-15-[address] True Ibarra Work Phone: [facility]-Cardiovascular Services Start: 04-14-2022 End: 04-14-[address] True Ibarra Work Phone: [facility] Work Phone: Start: 04-14-2022 End: 04-14-[address] [facility]bar[facility] Start: 04-14-2022 End: 04-14-[address] True Ibarra Work Phone: [facility] Start: 04-12-2022 End: 04-12-[address] True Ibarra Work Phone: [facility] Start: 04-08-2022 End: 04-08-[address] True Ibarra Work Phone: [facility] Work Phone: Start: 04-08-2022 End: 04-08-[address] [facility]bar[facility] Start: 03-19-2022 End: 03-19-[address] True Ibarra Work Phone: [facility] Start: 03-10-2022 End: 03-10-[address] True Ibarra Work Phone: [facility] Start: 03-09-2022 End: 03-09-[address] True Ibarra Work Phone: [facility] Work Phone: Start: 03-09-2022 End: 03-09-[address] True Ibarra Work Phone: [facility]-Occupational Therapy Start: 03-09-[address] True Ibarra Work Phone: [facility]-Occupational Therapy Start: 02-08-2022 End: 02-08-[address] True Ibarra Work Phone: [facility] Start: 02-01-2022 End: 02-01-[address] [facility] Start: 01-28-2022 End: 01-28-[address] True Ibarra Work Phone: [facility] Work Phone: Start: 01-28-2022 End: 01-28-[address] True Ibarra Work Phone: [facility]-MRI - [facility] Start: 01-25-[address] True Ibarra Work Phone: [facility]-Occupational Therapy Start: 01-18-2022 End: 01-18-[address] True Ibarra Work Phone: [facility] Start: 12-21-2021 Non-patient / Non-visit Dr. Jose Ibarra Work Phone: [facility] Start: 12-21-2021 End: 12-21-[address] True Ibarra Work Phone: [facility] Work Phone: Start: 12-21-2021 End: 12-21-[address] True Ibarra Work Phone: [facility]-Cardiovascular Services Start: 12-09-2021 End: 12-09-[address] True Ibarra Work Phone: [facility] Work Phone: Start: 12-09-2021 End: 12-09-[address] True Ibarra Work Phone: [facility]-Laboratory Start: 12-08-2021 End: 12-08-[address] True Ibarra Work Phone: [facility] Start: 12-07-2021 End: 12-07-[address] True Ibarra Work Phone: [facility] Work Phone: Start: 12-07-2021 End: 12-07-[address] True Ibarra Work Phone: [facility]-Radiology, [place] Start: 11-30-2021 End: 11-30-[address] True Ibarra Work Phone: [facility] Work Phone: Start: 11-30-2021 End: 11-30-[address] True Ibarra Work Phone: [facility] Start: 11-09-2021 End: 11-09-[address] True Ibarra Work Phone: [facility] Care Start: 11-09-[address] True Ibarra Work Phone: [facility] Oncology Start: 09-29-2021 End: 09-29-[address] True Ibarra Work Phone: [facility]-Laboratory Start: 08-20-2021 End: 08-20-[address] True Ibarra Work Phone: [facility] Start: 07-15-2021 End: 07-15-[address] True Ibarra Work Phone: [facility] Start: 07-03-2021 End: 07-03-2021 Ot evaluation Cody Cui MD Work Phone: [facility] Work Phone: Start: 06-26-[address] True Ibarra Work Phone: [facility]-Occupational Therapy Start: 06-22-2021 End: 06-22-[address] True Ibarra Work Phone: [facility]-Laboratory Start: 06-01-2021 End: 06-01-[address] True Ibarra Work Phone: [facility] Start: 05-26-2021 End: 05-26-[address] True Ibarra Work Phone: [facility] Start: 05-22-2021 End: 05-22-2021 Ot evaluation Nisa Conley PA-C Work Phone: [facility] Work Phone: Start: 04-03-2021 End: 04-03-[address] True Ibarra Work Phone: [facility] Start: 05-02-2017 Ambulatory [facility] Start: 03-23-2017 Ambulatory [facility] Start: 09-22-2016 [facility] Procedures Date Procedure Procedure Detail Performing Clinician Start: 07-19-[address] True Ibarra DO Work Phone: Start: 07-05-2024 Free prostate specif ic antigen level Dr. True Ibarra DO Work Phone: Start: 07-05-2024 Prostate specific an tigen measurement Dr. True Ibarra DO Work Phone: Comment on above: TEST RESULTS LIMITSP SA Total+% Free (Serial) Prostate Specific Ag 0.5 ng/mL 0.0-4.0 [facility] ECLIA methodology.According to the [employer], Serum PSA should decrease and remain at undetectable levels after radicalprostatectomy. The AUA defines biochemical recurrence as an initial PSA value 0.2 ng/mL or greater followed by a subsequent confirmatory PSA value 0.2 ng/mL or greater.Values obtained with different assay methods or kits cannot be used interchangeably. Results cannot be interpreted as absolute evidence of the presence or absence of malignant disease. PSA, Free 0.17 ng/mL N/A [facility] ECLIA methodology. % Free PSA 34.0 % The table below lists the probability of prostate cancer for men with non-suspicious ASHLEY results and total PSA between 4 and 10 ng/mL, by patient age (Pranay et al, RADHA 1998, 279:1542). % Free PSA 50-64 yr 65-75 yr 0.00-10.00% 56% 55% 10.01-15.00% 24% 35% 15.01-20.00% 17% 23% 20.01-25.00% 10% 20% >25.00% 5% 9%Please note: Pranay et al did not make specific recommendations regarding the use of percent free PSA for any other population of men TESTING PERFORMED AT [facility]. ORIGINAL REPORT ON FILE IN LAB CONTAINS ADDITIONAL TEST SITE INFORMATION. ____ Start: 04-04-2024 Albumin/Globulin ratio Dr. True Ibarra DO Work Phone: Start: 04-04-2024 Fibrinogen assay, quantitative Dr. True Ibarra DO Work Phone: Start: 04-04-[address] True Ibarra DO Work Phone: Comment on above: Result confirmed on concentration. Start: 04-04-2024 Measurement of renal function Dr. True Ibarra DO Work Phone: Comment on above: GFR Calc Start: 04-04-2024 Urine lambda light c kalli measurement Dr. True Ibarra DO Work Phone: Start: 03-21-2024 XR knee, [address] Jose Ibarra DO Work Phone: Start: 09-01-[address] True Ibarra DO Work Phone: Start: 09-01-2023 Total iron binding c apacity measurement Dr. True Ibarra DO Work Phone: Start: 02-16-2023 MRI of joint of lowe r extremity Dr. True Ibarra Work Phone: Start: 02-10-2023 Radionuclide imaging of perfusion of myocardium under exercise stress Dr. True Ibarra Work Phone: Start: 12-20-2022 Plain X-ray of shoulder Dr. True Ibarra Work Phone: Start: 11-17-[address] Jose Ibarra Work Phone: Start: 10-08-2022 Radiologic examination of knee Dr. True Ibarra Work Phone: Start: 04-29-2022 MRI of lumbar spine Dr. True Ibarra Work Phone: Start: 04-10-2022 MRI of joint of lowe r extremity Dr. True Ibarra Work Phone: Start: 03-19-2022 Radiologic examination of knee Dr. True Ibarra Work Phone: Start: 01-28-2022 MRI of joint of lowe r extremity Dr. True Ibarra Work Phone: Start: 12-21-2021 Radionuclide imaging of perfusion of myocardium under exercise stress Dr. True Ibarra Work Phone: Start: 12-07-2021 X-ray of lumbosacral spine Dr. True Ibarra Work Phone: Start: 11-30-2021 MRI of joint of uppe r extremity Dr. True Ibarra Work Phone: Start: 08-20-[address] Jb Ibarra Work Phone: Start: 07-15-2021 Radiologic examination of knee Dr. 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 Nisa Conley PA-C Work Phone: Start: 04-03-2021 MRI of cervical spine Brendan Ibarra Work Phone: Start: 11-09-2020 History of placement of stent for coronary artery disease History of coronary artery stent placement Cody Ryder 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 Comment on above: PCI-CHRISTAL-Mid LAD w/ 3 .0 x 26 mm Orsiro Stent 11/09/20 Start: 07-12-2016 End: 08-02-2016 *CBC with Differential Odalis Hobbs NP Work Phone: Start: 07-12-2016 End: 08-02-2016 *CMP Complete Metabolic Panel Odalis garcias NP Work Phone: Start: 07-12-2016 End: 08-04-2016 Dehydroepiandrosterone sulfate (DHEA-S) [Mass/volume] in Serum or Plasma Odalis Hobbs NP Work Phone: Start: 07-12-2016 End: 08-02-2016 Lipid 1996 panel - Serum or Plasma Odalis Hobbs NP Work Phone: Start: 03-24-2016 End: 03-24-2016 *CBC with Differential Christensen M Alam Work Phone: Start: 03-24-2016 End: 03-24-2016 *CMP Complete Metabolic Panel Christensen M Alam Work Phone: Start: 03-24-2016 End: 03-24-2016 Lactate dehydrogenase [Enzymatic activity/volume] in Serum or Plasma Christensen M Alam Work Phone: Start: 03-24-2016 End: 03-24-2016 Urate [Mass/volume] in Serum or Plasma Christensen M Alam Work Phone: Start: 03-15-2016 End: 03-24-2016 *CBC with Differential Christensen M Alam Work Phone: Start: 03-15-2016 End: 03-24-2016 *CMP [...] 03-24-2016 Ct head/brain w/o contrast material Anna Alexander PA-C Work Phone: Start: 08-18-2015 End: 08-19-2015 [...] 12-31-2014 Arthrocentesis aspir&/inj major jt/bursa w/o Jennie Preeti Tony Work Phone: Start: 09-18-2014 End: 09-12-2015 *CBC with Differential Fermin Modi Work Phone: Start: 09-16-2014 End: 09-16-2014 *CBC with Differential Fermin Modi Work Phone: Start: 09-06-2014 End: 09-15-2014 Arthrocentesis aspir&/inj major jt/bursa w/o Jennie Hayes Work Phone: Start: 07-02-2014 End: 09-12-2015 *CBC with Differential Fermin Modi Work Phone: Start: 06-19-2014 End: 06-19-2014 *CBC with Differential Christensen Nick Alanick Work Phone: Start: 06-19-2014 End: 06-19-2014 *CMP Complete Metabolic Panel Fermin Modi Work Phone: Start: 06-19-2014 End: 06-19-2014 Lactate dehydrogenase [Enzymatic activity/volume] in Serum or Plasma Fermin Modi Work Phone: Start: 06-19-2014 End: 06-19-2014 Urate [Mass/volume] in Serum or Plasma Fermin Modi Work Phone: Start: 05-20-2014 End: 05-21-2014 *CBC with Differential Christensen Nick Modi Work Phone: Start: 03-29-2014 End: 04-02-2014 Arthrocentesis aspir&/inj major jt/bursa w/o Jennie Hayes Work Phone: NEGATED: Highlighted rowStart: 07-03-2021 End: 07-03-2021 Documentation of current medications Salud King AT NEGATED: Highlighted rowStart: 05-22-2021 End: 05-22-2021 Documentation of current medications Florence Torres LPN Plan of Treatment Date Care Activity Detail Author Start: 03-21-2024 Patient referral [facility] Work Phone: Start: 03-15-2023 Testosterone measurement [facility] Start: 01-05-2023 Hepatitis B surface antigen measurement [facility] Start: 01-05-2023 Hepatitis C antibody measurement [facility] Start: 01-05-2023 [facility] Start: 08-28-2021 End: 08-28-2021 Patient encounter procedure Appointment [place] [facility] Work Phone: Start: 07-03-2021 End: 07-03-2021 Patient encounter procedure Appointment [place] [facility] Work Phone: Start: 05-22-2021 End: 05-22-2021 Patient encounter procedure Appointment [facility] Work Phone: Start: 12-09-2016 [facility] Start: 09-22-2016 End: 09-22-2016 Radex shoulder complete minimum 2 views X-Ray, Shoulder [facility] Work Phone: Start: 09-16-2016 End: 03-24-2016 *CBC with Differential *CBC with Differential [facility] Work Phone: Start: 09-16-2016 End: 03-24-2016 *CMP Complete Metabolic Panel *CMP Complete Metabolic Panel [facility] Work Phone: Start: 09-16-2016 End: 03-24-2016 Lactate dehydrogenase (LDH) *LDH -LDH (Lactate Dehydrogenase) [facility] Work Phone: Start: 09-16-2016 End: 03-24-2016 Urate *Uric Acid Blood [facility] Work Phone: Start: 07-12-2016 End: 08-02-2016 *CBC with Differential *CBC with Differential [facility] Work Phone: Start: 07-12-2016 End: 08-02-2016 *CMP Complete Metabolic Panel *CMP Complete Metabolic Panel [facility] Work Phone: Start: 07-12-2016 End: 07-18-2016 Acth stimulation panel adrenal insufficiency ACTH stimulation panel; for adrenal insufficiency. [facility] Work Phone: Start: 07-12-2016 End: 08-04-2016 Dehydroepiandrosterone sulfate (DHEA-S) *DHEA - DHEA-S (Dehydroepiandrostero ne Sullfate) [facility] Work Phone: Start: 07-12-2016 End: 08-02-2016 Lipid panel [AGGREGATE] *Lipid Profile [facility] Work Phone: Start: 05-03-2016 End: 05-03-2016 Radex shoulder complete minimum 2 views X-Ray, Shoulder [facility] Work Phone: Start: 03-31-2016 End: 03-31-2016 Physical Therapy [facility] Work Phone: Start: 03-15-2016 End: 03-24-2016 *CBC with Differential *CBC with Differential [facility] Work Phone: Start: 03-15-2016 End: 03-24-2016 *CMP Complete Metabolic Panel *CMP Complete Metabolic Panel [facility] Work Phone: Start: 03-15-2016 End: 03-24-2016 Lactate dehydrogenase (LDH) *LDH -LDH (Lactate Dehydrogenase) [facility] Work Phone: Start: 03-15-2016 End: 03-24-2016 Urate *Uric Acid Blood [facility] Work Phone: Start: 02-18-2016 End: 03-24-2016 Mri any jt upper extremity w/o contrast matrl MRI Joint Upper Extremity [facility] Work Phone: Start: 08-18-2015 End: 03-24-2016 Ct head/brain w/o contrast material CT Head/Brain without contrast [facility] Work Phone: Start: 08-18-2015 End: 08-19-2015 Erythrocyte sedimentation rate *Sedimentation Rate (ESR) [facility] Work Phone: Start: 06-17-2015 End: 09-12-2015 *CBC with Differential *CBC with Differential [facility] Work Phone: Start: 06-17-2015 End: 06-23-2015 *CMP Complete Metabolic Panel *CMP Complete Metabolic Panel [facility] Work Phone: Start: 06-17-2015 End: 06-23-2015 Lactate dehydrogenase (LDH) *LDH -LDH (Lactate Dehydrogenase) [facility] Work Phone: Start: 06-17-2015 End: 06-23-2015 Urate *Uric Acid Blood [facility] Work Phone: Start: 2015 End: 03-24-2016 Radiologic exam knee complete 4/more views X-Ray, Knee [facility] Work Phone: Start: 03-10-2015 End: 03-18-2015 *CBC with Differential *CBC with Differential [facility] Work Phone: Start: 03-10-2015 End: 03-18-2015 *CMP Complete Metabolic Panel *CMP Complete Metabolic Panel [facility] Work Phone: Start: 03-10-2015 End: 09-12-2015 *MISC - Miscellaneous Lab Test #1 *MISC - Miscellaneous Lab Test #1 [facility] Work Phone: Start: 03-10-2015 End: 03-18-2015 Lactate dehydrogenase (LDH) *LDH -LDH (Lactate Dehydrogenase) [facility] Work Phone: Start: 03-10-2015 End: 03-18-2015 Urate *Uric Acid Blood [facility] Work Phone: Start: 10-02-2014 End: 10-07-2014 Mri spinal canal cervical w/o contrast matrl MRI Cervical Spine [facility] Work Phone: Start: 10-02-2014 End: 10-11-2014 Office outpatient visit 25 minutes [id number] Ofc Vst, Est Level IV [facility] Work Phone: Start: 09-19-2014 End: 09-16-2014 *CBC with Differential *CBC with Differential [facility] Work Phone: Start: 09-18-2014 End: 09-12-2015 *CBC with Differential *CBC with Differential [facility] Work Phone: Start: 07-02-2014 End: 09-12-2015 *CBC with Differential *CBC with Differential [facility] Work Phone: Start: 06-21-2014 End: 06-19-2014 Lactate dehydrogenase (LDH) *LDH -LDH (Lactate Dehydrogenase) [facility] Work Phone: Start: 06-20-2014 End: 06-19-2014 *CBC with Differential *CBC with Differential [facility] Work Phone: Start: 06-20-2014 End: 06-19-2014 *CMP Complete Metabolic Panel *CMP Complete Metabolic Panel [facility] Work Phone: Start: 06-20-2014 End: 06-19-2014 Urate *Uric Acid Blood [facility] Work Phone: Start: 05-20-2014 End: 05-21-2014 *CBC with Differential *CBC with Differential [facility] Work Phone: Alanine aminotransfe rase [Enzymatic activity/volume] in Serum or Plasma [facility] Albumin [Mass/volume ] in Serum or Plasma [facility] Alkaline phosphatase [Enzymatic activity/volume] in Serum or Plasma [facility] Anion gap measurement [facility] Aspartate aminotrans ferase [Enzymatic activity/volume] in Serum or Plasma [facility] Bilirubin, total measurement [facility] BUN/Creatinine ratio [facility] Calcium [Mass/volume ] in Serum or Plasma [facility] Carbon dioxide, tota l [Moles/volume] in Serum or Plasma [facility] CBC W Auto Different ial panel - Blood [facility] Chloride [Moles/volu me] in Serum or Plasma [facility] Creatinine [Moles/vo lume] in Serum or Plasma [facility] Cyclic citrullinated peptide IgG Ab [Units/volume] in Serum or Plasma [facility] Free:total prostate specific antigen ratio [facility] Work Phone: Glucose [Mass/volume ] in Serum or Plasma [facility] Hematocrit [Volume F raction] of Blood [facility] Hemoglobin [Mass/vol ume] in Blood [facility] Hepatitis B virus miller rface IgG Ab [Presence] in Serum [facility] Leukocytes [#/volume] in Blood [facility] Lipid 1996 panel - S jaswidner or Plasma [facility] Mean corpuscular hem oglobin concentration determination [facility] Mean corpuscular hem oglobin determination [facility] Measurement of renal function [facility] Neutrophil count [facility] Neutrophil percent d ifferential count [facility] Patient Education WEIGHT%20MANAG EMENT, WEIGHT%20MANAGEMENT [facility] Work Phone: Patient referral [facility] Work Phone: Platelets [#/volume] in Blood [facility] Potassium [Moles/vol ume] in Serum or Plasma [facility] Prostate specific Ag [Mass/volume] in Serum or Plasma [facility] Work Phone: Prostate Specific Ag Free [Mass/volume] in Serum or Plasma [facility] Work Phone: Radionuclide imaging of perfusion of myocardium under exercise stress [facility] Work Phone: Red blood cell count [facility] Red cell distributio n width determination [facility] Rheumatoid factor [P resence] in Serum [facility] Sodium [Moles/volume ] in Serum or Plasma [facility] Testosterone Free [M ass/volume] in Serum or Plasma [facility] Work Phone: Testosterone Free [M ass/volume] in Serum or Plasma [facility] Testosterone Free [M ass/volume] in Serum or Plasma [facility] Testosterone measurement [facility] Work Phone: Testosterone measurement [facility] Total protein measurement [facility] Urea nitrogen [Mass/ volume] in Serum or Plasma [facility] Immunizations Immunization Date Immunization Notes Care Provider [facility] 12-13-[address] True Ibarra Work Phone: [facility] 12-25-[address] True Ibarra Work Phone: [facility] Payers Date Payer Category Payer Medicare [id number] 2016 Private Health Insurance [facility] [id number] 2016 Self-pay [id number] 2016 Unknown [id number] 2016 Unknown [facility] [id number] 2008 Unknown ANTHEM [id number] Medicare [id number] Unknown [id number] Unknown [id number] Unknown [id number] Unknown [id number] Unknown [id number] Unknown [id number] Unknown [id number] Unknown [id number] Unknown [id number] Unknown [id number] Unknown [id number] Unknown [id number] Unknown [id number] Unknown [id number] Unknown [id number] Unknown [id number] Unknown [id number] Unknown [id number] Social History Date Type Detail Facility Start: 06-01-2021 End: 03-24-2023 Assertion Unknown if ever smoked [facility] Work Phone: Start: 05-16-2020 Non-smoker [facility] Start: 1955 Sex Assigned At Male [facility] Start: 03-22-2024 [facility] Start: 06-08-2024 Sex Male (finding) [facility] Sex Male [facility] Medical Equipment Procedure Code Equipment Code Equipment Origin al Text Equipment Identifier Dates Total knee replacement TIBIAL BEARING INSERT - CS FDA Start: 01-24-2020 Total knee replacement TIBIAL BEARING INSERT - CS FDA Start: 01-24-2020 Total knee replacement TIBIAL BEARING INSERT - CS FDA Start: 01-24-2020 Total knee replacement TIBIAL BEARING INSERT - CS FDA Start: 01-24-2020 Total knee replacement TIBIAL BEARING INSERT - CS FDA Start: 01-24-2020 Total knee replacement TIBIAL BEARING INSERT - CS FDA Start: 01-24-2020 Total knee replacement TIBIAL BEARING INSERT - CS FDA Start: 01-24-2020 Total knee replacement TIBIAL BEARING INSERT - CS FDA Start: 01-24-2020 Total knee replacement TIBIAL BEARING INSERT - CS FDA Start: 01-24-2020 Total knee replacement TIBIAL BEARING INSERT - CS FDA Start: 01-24-2020 Total knee replacement TIBIAL BEARING INSERT - CS FDA Start: 01-24-2020 Total knee replacement TIBIAL BEARING INSERT - CS FDA Start: 01-24-2020 Total knee replacement TIBIAL BEARING INSERT - CS FDA Start: 01-24-2020 Total knee replacement TIBIAL BEARING INSERT - CS FDA Start: 01-24-2020 Total knee replacement TIBIAL BEARING INSERT - CS FDA Start: 01-24-2020 Total knee replacement TIBIAL BEARING INSERT - CS FDA Start: 01-24-2020 Total knee replacement TIBIAL BEARING INSERT - CS FDA Start: 01-24-2020 Total knee replacement TIBIAL BEARING INSERT - CS FDA Start: 01-24-2020 Total knee replacement TIBIAL BEARING INSERT - CS FDA Start: 01-24-2020 Total knee replacement TIBIAL BEARING INSERT - CS FDA Start: 01-24-2020 Total knee replacement TIBIAL BEARING INSERT - CS FDA Start: 01-24-2020 Total knee replacement TIBIAL BEARING INSERT - CS FDA Start: 01-24-2020 Total knee replacement TIBIAL BEARING INSERT - CS FDA Start: 01-24-2020 Total knee replacement TIBIAL BEARING INSERT - CS FDA Start: 01-24-2020 Total knee replacement TIBIAL BEARING INSERT - CS FDA Start: 01-24-2020 Total knee replacement TIBIAL BEARING INSERT - CS FDA Start: 01-24-2020 Total knee replacement TIBIAL BEARING INSERT - CS FDA Start: 01-24-2020 Total knee replacement TIBIAL BEARING INSERT - CS FDA Start: 01-24-2020 Total knee replacement TIBIAL BEARING INSERT - CS FDA Start: 01-24-2020 Bunionectomy 3.0 CANNULATED SCEW FDA Start: 04-05-2018 Bunionectomy NON-THREADED NING DE WIRE FDA Start: 04-05-2018 Bunionectomy 3.0 CANNULATED SCEW FDA Start: 04-05-2018 Bunionectomy NON-THREADED NING DE WIRE FDA Start: 04-05-2018 Bunionectomy 3.0 CANNULATED SCEW FDA Start: 04-05-2018 Bunionectomy NON-THREADED NING DE WIRE FDA Start: 04-05-2018 Bunionectomy 3.0 CANNULATED SCEW FDA Start: 04-05-2018 Bunionectomy NON-THREADED NING DE WIRE FDA Start: 04-05-2018 Bunionectomy 3.0 CANNULATED SCEW FDA Start: 04-05-2018 Bunionectomy NON-THREADED NING DE WIRE FDA Start: 04-05-2018 Bunionectomy 3.0 CANNULATED SCEW FDA Start: 04-05-2018 Bunionectomy NON-THREADED NING DE WIRE FDA Start: 04-05-2018 Bunionectomy 3.0 CANNULATED SCEW FDA Start: 04-05-2018 Bunionectomy NON-THREADED NING DE WIRE FDA Start: 04-05-2018 Bunionectomy 3.0 CANNULATED SCEW FDA Start: 04-05-2018 Bunionectomy NON-THREADED NING DE WIRE FDA Start: 04-05-2018 Bunionectomy 3.0 CANNULATED SCEW FDA Start: 04-05-2018 Bunionectomy NON-THREADED NING DE WIRE FDA Start: 04-05-2018 Bunionectomy 3.0 CANNULATED SCEW FDA Start: 04-05-2018 Bunionectomy NON-THREADED NING DE WIRE FDA Start: 04-05-2018 Bunionectomy 3.0 CANNULATED SCEW FDA Start: 04-05-2018 Bunionectomy NON-THREADED NING DE WIRE FDA Start: 04-05-2018 Bunionectomy 3.0 CANNULATED SCEW FDA Start: 04-05-2018 Bunionectomy NON-THREADED NING DE WIRE FDA Start: 04-05-2018 Bunionectomy 3.0 CANNULATED SCEW FDA Start: 04-05-2018 Bunionectomy NON-THREADED NING DE WIRE FDA Start: 04-05-2018 Bunionectomy 3.0 CANNULATED SCEW FDA Start: 04-05-2018 Bunionectomy NON-THREADED NING DE WIRE FDA Start: 04-05-2018 Bunionectomy 3.0 CANNULATED SCEW FDA Start: 04-05-2018 Bunionectomy NON-THREADED NING DE WIRE FDA Start: 04-05-2018 Bunionectomy 3.0 CANNULATED SCEW FDA Start: 04-05-2018 Bunionectomy NON-THREADED NING DE WIRE FDA Start: 04-05-2018 Bunionectomy 3.0 CANNULATED SCEW FDA Start: 04-05-2018 Bunionectomy NON-THREADED NING DE WIRE FDA Start: 04-05-2018 Bunionectomy 3.0 CANNULATED SCEW FDA Start: 04-05-2018 Bunionectomy NON-THREADED NING DE WIRE FDA Start: 04-05-2018 Bunionectomy 3.0 CANNULATED SCEW FDA Start: 04-05-2018 Bunionectomy NON-THREADED NING DE WIRE FDA Start: 04-05-2018 Bunionectomy 3.0 CANNULATED SCEW FDA Start: 04-05-2018 Bunionectomy NON-THREADED NING DE WIRE FDA Start: 04-05-2018 Bunionectomy 3.0 CANNULATED SCEW FDA Start: 04-05-2018 Bunionectomy NON-THREADED NING DE WIRE FDA Start: 04-05-2018 Bunionectomy 3.0 CANNULATED SCEW FDA Start: 04-05-2018 Bunionectomy NON-THREADED NING DE WIRE FDA Start: 04-05-2018 Bunionectomy 3.0 CANNULATED SCEW FDA Start: 04-05-2018 Bunionectomy NON-THREADED NING DE WIRE FDA Start: 04-05-2018 Bunionectomy 3.0 CANNULATED SCEW FDA Start: 04-05-2018 Bunionectomy NON-THREADED NING DE WIRE FDA Start: 04-05-2018 Bunionectomy 3.0 CANNULATED SCEW FDA Start: 04-05-2018 Bunionectomy NON-THREADED NING DE WIRE FDA Start: 04-05-2018 Bunionectomy 3.0 CANNULATED SCEW FDA Start: 04-05-2018 Bunionectomy NON-THREADED NING DE WIRE FDA Start: 04-05-2018 Bunionectomy 3.0 CANNULATED SCEW FDA Start: 04-05-2018 Bunionectomy NON-THREADED NING DE WIRE FDA Start: 04-05-2018 Bunionectomy 3.0 CANNULATED SCEW FDA Start: 04-05-2018 Bunionectomy NON-THREADED NING DE WIRE FDA Start: 04-05-2018 Bunionectomy 3.0 CANNULATED SCEW FDA Start: 04-05-2018 Bunionectomy NON-THREADED NING DE WIRE FDA Start: 04-05-2018 FEMUR FDA Start: 07-31-2019 PATELLA FDA Start: 07-31-2019 TIBIA FDA Start: 07-31-2019 TIBIAL INSERT FDA Start: 07-31-2019 ([id number]) Drug-eluting coronary artery stent, bioabsorbable-poly francine-coated [id number] FDA Start: 11-09-2020 FEMUR FDA Start: 07-31-2019 PATELLA FDA Start: 07-31-2019 TIBIA FDA Start: 07-31-2019 TIBIAL INSERT FDA Start: 07-31-2019 FEMUR FDA Start: 07-31-2019 PATELLA FDA Start: 07-31-2019 TIBIA FDA Start: 07-31-2019 TIBIAL INSERT FDA Start: 07-31-2019 FEMUR FDA Start: 07-31-2019 PATELLA FDA Start: 07-31-2019 TIBIA FDA Start: 07-31-2019 TIBIAL INSERT FDA Start: 07-31-2019 FEMUR FDA Start: 07-31-2019 PATELLA FDA Start: 07-31-2019 TIBIA FDA Start: 07-31-2019 TIBIAL INSERT FDA Start: 07-31-2019 FEMUR FDA Start: 07-31-2019 PATELLA FDA Start: 07-31-2019 TIBIA FDA Start: 07-31-2019 TIBIAL INSERT FDA Start: 07-31-2019 FEMUR FDA Start: 07-31-2019 PATELLA FDA Start: 07-31-2019 TIBIA FDA Start: 07-31-2019 TIBIAL INSERT FDA Start: 07-31-2019 FEMUR FDA Start: 07-31-2019 PATELLA FDA Start: 07-31-2019 TIBIA FDA Start: 07-31-2019 TIBIAL INSERT FDA Start: 07-31-2019 FEMUR FDA Start: 07-31-2019 PATELLA FDA Start: 07-31-2019 TIBIA FDA Start: 07-31-2019 TIBIAL INSERT FDA Start: 07-31-2019 FEMUR FDA Start: 07-31-2019 PATELLA FDA Start: 07-31-2019 TIBIA FDA Start: 07-31-2019 TIBIAL INSERT FDA Start: 07-31-2019 FEMUR FDA Start: 07-31-2019 PATELLA FDA Start: 07-31-2019 TIBIA FDA Start: 07-31-2019 TIBIAL INSERT FDA Start: 07-31-2019 FEMUR FDA Start: 07-31-2019 PATELLA FDA Start: 07-31-2019 TIBIA FDA Start: 07-31-2019 TIBIAL INSERT FDA Start: 07-31-2019 FEMUR FDA Start: 07-31-2019 PATELLA FDA Start: 07-31-2019 TIBIA FDA Start: 07-31-2019 TIBIAL INSERT FDA Start: 07-31-2019 FEMUR FDA Start: 07-31-2019 PATELLA FDA Start: 07-31-2019 TIBIA FDA Start: 07-31-2019 TIBIAL INSERT FDA Start: 07-31-2019 FEMUR FDA Start: 07-31-2019 PATELLA FDA Start: 07-31-2019 TIBIA FDA Start: 07-31-2019 TIBIAL INSERT FDA Start: 07-31-2019 FEMUR FDA Start: 07-31-2019 PATELLA FDA Start: 07-31-2019 TIBIA FDA Start: 07-31-2019 TIBIAL INSERT FDA Start: 07-31-2019 FEMUR FDA Start: 07-31-2019 PATELLA FDA Start: 07-31-2019 TIBIA FDA Start: 07-31-2019 TIBIAL INSERT FDA Start: 07-31-2019 FEMUR FDA Start: 07-31-2019 PATELLA FDA Start: 07-31-2019 TIBIA FDA Start: 07-31-2019 TIBIAL INSERT FDA Start: 07-31-2019 FEMUR FDA Start: 07-31-2019 PATELLA FDA Start: 07-31-2019 TIBIA FDA Start: 07-31-2019 TIBIAL INSERT FDA Start: 07-31-2019 FEMUR FDA Start: 07-31-2019 PATELLA FDA Start: 07-31-2019 TIBIA FDA Start: 07-31-2019 TIBIAL INSERT FDA Start: 07-31-2019 FEMUR FDA Start: 07-31-2019 PATELLA FDA Start: 07-31-2019 TIBIA FDA Start: 07-31-2019 TIBIAL INSERT FDA Start: 07-31-2019 FEMUR FDA Start: 07-31-2019 PATELLA FDA Start: 07-31-2019 TIBIA FDA Start: 07-31-2019 TIBIAL INSERT FDA Start: 07-31-2019 FEMUR FDA Start: 07-31-2019 PATELLA FDA Start: 07-31-2019 TIBIA FDA Start: 07-31-2019 TIBIAL INSERT FDA Start: 07-31-2019 FEMUR FDA Start: 07-31-2019 PATELLA FDA Start: 07-31-2019 TIBIA FDA Start: 07-31-2019 TIBIAL INSERT FDA Start: 07-31-2019 FEMUR FDA Start: 07-31-2019 PATELLA FDA Start: 07-31-2019 TIBIA FDA Start: 07-31-2019 TIBIAL INSERT FDA Start: 07-31-2019 FEMUR FDA Start: 07-31-2019 PATELLA FDA Start: 07-31-2019 TIBIA FDA Start: 07-31-2019 TIBIAL INSERT FDA Start: 07-31-2019 FEMUR FDA Start: 07-31-2019 PATELLA FDA Start: 07-31-2019 TIBIA FDA Start: 07-31-2019 TIBIAL INSERT FDA Start: 07-31-2019 FEMUR FDA Start: 07-31-2019 PATELLA FDA Start: 07-31-2019 TIBIA FDA Start: 07-31-2019 TIBIAL INSERT FDA Start: 07-31-2019 FEMUR FDA Start: 07-31-2019 PATELLA FDA Start: 07-31-2019 TIBIA FDA Start: 07-31-2019 TIBIAL INSERT FDA Start: 07-31-2019 Clinical Notes 11-09-2020 to 09-28-2024 Note Date & Type Note Facility 09-28-2024 Discharge summary Note Date/Time September 28, 2024 7:00 pm [facility] Physical [facility] [place] [address] / REHABILITATION SERVICES DISCHARGE SUMMARY MR#: [id number] Acct: [id number] Name: VAUGHN DINERO Rep #: [id number] : 1955 69 From: Cam Santillan PT, ATC Referring Dr.: Dr. Reginaldo Blank DO Status: REG RCR Insurance: MEDICARE PART A B [employer] SR SUPPLEMENT INS Discharge Summary D/C summary: It has been my pleasure to treat VAUGHN DINERO referred by Dr. Reginaldo Blank DO, with the diagnosis of Patellar tendonitis, IT band for a total of 16 visit(s). Discharge Date: Please see the following information for a summary of their discharge status. Subjective Subjective: Pt reports he is doing better, but still has pain Pain R knee: Pain Intensity (Out of 10): 3 Overall Improvement % Improvement: 75 Objective Objective/Function: R knee MMT: flex= 38, ext= 48 #F 3/10 pain Pt is I with HEP FGA 30/30 Goals Goal 1:: Increase R knee strength x 5-10 #F to aid with IADL's Goal Progress: Goal Met Goal 2:: Decrease R knee pain x 50% to aid with sleep Goal Progress: Goal Met Goal 3:: I with HEP Goal Progress: Goal Met Goal 4:: Increase FGA score to 25/30 to aid with fall prevention Goal Progress: Goal Met Plan Plan: Discharge to HEP D/C Information d/c sentence: If there are questions or concerns regarding this patient's physical therapy, please feel free to call me at [phone]. Thank you for the referral of thispatient. Sincerely, Cam Santillan, PT, ATC Balance/Gait/Functional tests Balance/Special Test Scores Functional Gait Assessment Score: 30 % Disability: 0 Lower Extremity Functional Score: 80 Improvement % Improvement: 75 <Electronically signed by Cam Santillan PT, ATC> 09/28/24 0731 CC: Dr. Reginaldo Blank DO; Dr. True Ibarra DO ~ [facility] Signed [facility] Work Phone: 1(509) 194-775807-18-2025 Discharge summary [facility] [address] [place] [address]. [address] [place] [address] / REHABILITATION SERVICES DISCHARGE SUMMARY MR#: [id number] Acct: [id number] Name: VAUGHN DINERO Rep #: [id number] : 1955 69 From: Cam Santillan PT, ATC Referring Dr.: Dr. Reginaldo Blank DO Status: REG RCR Insurance: MEDICARE PART A B [employer] SR SUPPLEMENT INS Discharge Summary D/C summary: It has been my pleasure to treat VAUGHN DINERO referred by Dr. Reginaldo Blank DO, with the diagnosis of Patellar tendonitis, IT band for a total of 16 visit(s). Discharge Date: Please see the following information for a summary of their discharge status. Subjective Subjective: Pt reports he is doing better, but still has pain Pain R knee: Pain Intensity (Out of 10): 3 Overall Improvement % Improvement: 75 Objective Objective/Function: R knee MMT: flex= 38, ext= 48 #F 3/10 pain Pt is I with HEP FGA 30/30 Goals Goal 1:: Increase R knee strength x 5-10 #F to aid with IADL's Goal Progress: Goal Met Goal 2:: Decrease R knee pain x 50% to aid with sleep Goal Progress: Goal Met Goal 3:: I with HEP Goal Progress: Goal Met Goal 4:: Increase FGA score to 25/30 to aid with fall prevention Goal Progress: Goal Met Plan Plan: Discharge to HEP D/C Information d/c sentence: If there are questions or concerns regarding this patient's physical therapy, please feel free to call me at [phone]. Thank you for the referral of thispatient. Sincerely, Cam Santillan PT, ATC Balance/Gait/Functional tests Balance/Special Test Scores Functional Gait Assessment Score: 30 % Disability: 0 Lower Extremity Functional Score: 80 Improvement % Improvement: 75 09/28/24 0731 CC: Dr. Reginaldo Blank DO; Dr. 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 Reginaldo Blank DO Status: REG RCR Insurance: MEDICARE PART A B [employer]ET[employer] SR SUPPLEMENT INS Discharge Summary D/C summary: It has been my pleasure to treat VAUGHN DINERO referred by Dr. Reginaldo Blank DO, with the diagnosis of R IT band syndrome for a total of 12 visit(s). Discharge Date: Please see the following information for a summary of their discharge status. Subjective Subjective: Pt reports he is in more pain than the last time he saw me. Pt reports this is a whole different pain that causes his knee to swell Pain R IT band: Pain Intensity (Out of 10): 4 Overall Improvement % Improvement: 45 Objective Objective/Function: R knee pain ranges from 5-7/10. Now having difficulty sleeping at night. Pt reports he is able to drive for 10 min without increased pain. Pt is I with HEP Pt has experienced a regression with pain over the past few weeks for unknown reasons. Goals Goal 1:: Decrease R knee pain x 50% to aid with sleep Goal Progress: Progressing Goal 2:: Increase pt's tolerance for driving to greater than 10 min without experiencing increased R LE sx's Goal Progress: Goal Met Goal 3:: I with hep Goal Progress: Goal Met Plan Plan: Discontinue at this time. Consider RTD for swelling purposes D/C Information d/c sentence: If there are questions or concerns regarding this patient's physical therapy, please feel free to call me at [phone]. Thank you for the referral of thispatient. Sincerely, Cam Santillan, PT, ATC Balance/Gait/Functional tests Balance/Special Test Scores Lower Extremity Functional Score: 75 Improvement % Improvement: 45 <Electronically signed by Cam Santillan PT, ATC> 06/06/24 0759 CC: Dr. Reginaldo Blank, ; Dr. True Ibarra, ~ [facility] Signed [facility] Work Phone: 1([phone]) 482-858603-26-2025 Discharge summary [facility] [address] [place] [address]. [address] [place] [address] / REHABILITATION SERVICES DISCHARGE SUMMARY MR#: [id number] Acct: [id number] Name: VAUGHN DINERO Rep #: [id number] : 1955 69 From: Cam Santillan PT, ATC Referring Dr.: Dr. Reginaldo Blank, DO Status: REG RCR Insurance: MEDICARE PART A B [employer] SR SUPPLEMENT INS Discharge Summary D/C summary: It has been my pleasure to treat VAUGHN DINERO referred by Dr. Reginaldo Blank DO, with the diagnosis of R IT band syndrome for a total of 12 visit(s). Discharge Date: Please see the following information for a summary of their discharge status. Subjective Subjective: Pt reports he is in more pain than the last time he saw me. Pt reports this is a whole different pain that causes his knee to swell Pain R IT band: Pain Intensity (Out of 10): 4 Overall Improvement % Improvement: 45 Objective Objective/Function: R knee pain ranges from 5-7/10. Now having difficulty sleeping at night. Pt reports he is able to drive for 10 min without increased pain. Pt is I with HEP Pt has experienced a regression with pain over the past few weeks for unknown reasons. Goals Goal 1:: Decrease R knee pain x 50% to aid with sleep Goal Progress: Progressing Goal 2:: Increase pt's tolerance for driving to greater than 10 min without experiencing increased R LE sx's Goal Progress: Goal Met Goal 3:: I with hep Goal Progress: Goal Met Plan Plan: Discontinue at this time. Consider RTD for swelling purposes D/C Information d/c sentence: If there are questions or concerns regarding this patient's physical therapy, please feel free to call me at [phone]. Thank you for the referral of thispatient. Sincerely, Cam Santillan, PT, ATC Balance/Gait/Functional tests Balance/Special Test Scores Lower Extremity Functional Score: 75 Improvement % Improvement: 45 06/06/24 0759 CC: Dr. Reginaldo Blank DO; Dr. True Ibarra DO ~ [facility] Signed [facility]01-08-2025 Evaluation note* Diagnosis Onset Date Resolution Status Admit Date H/O total knee replacement acute March 21, 2024 8:01am IT band syndrome acute March 21, 2024 8:01am History of coronary artery stent placement November 09, 2020 acute March 22, 2 025 8:30am Essential hypertension chronic Ja nuary 2024 8:30am Ischemic cardiomyopathy resolved J anuary 2024 8:30am Spontaneous bruising chronic Christoph александр 2024 1:24pm Gammopathy resolved April 04, 2024 2:00pm Leukopenia resolved April 04, 2024 2:00pm H/O total knee replacement acute April 11, 2024 8:27am IT band syndrome acute April 11, 2024 8:27am Spontaneous bruising chronic Febr uary 2024 3:51pm [facility] Work Phone: [phone]) [phone] Discharge summary Author Desirae Mckeon [facility] June 17, 2022 8:00am Note Date/Time June 17, 2022 8:00 am [facility] Occupational Therapy [facility] [address] [place] [address] / REHABILITATION SERVICES DISCHARGE SUMMARY MR#: [id number] Acct: [id number] Name: VAUGHN DINERO Rep #: [id number] : 1955 67 From: Desirae Mckeon OTR/L, CHT Referring Dr.: OUT OF TOWN DOCTOR Status: REG RCR Eval Date: Discharge Date: It has been my pleasure to treat VAUGHN DINERO under orders from ESSENCE THORNE, for the diagnosis of traumatic partial tear of left biceps tendon for a total of 5 visit(s). Please see the following information for a summary of their discharge status. pt last seen 03/09/22, pt progressing well- pt has not scheduled further apts. pt d/c at this time. 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 left lateral pinch 12#. left tripod 10#. left elbow +5/140. left forearm supination 75. pt demoROM WNL following a distal biceps repair. pt advised to stay with 5# restriction until he is at 16 weeks s/p. pt ed. to watch with full use of is left UE for 6 month. pt also ed. not to lift items out in front of pt. to keep items close. pt demo understanding and agree to POC. 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 return to follow up with in Apr. If there are questions or concerns regarding this patient's occupational therapy, please fell free to call me at [phone]. Thank you for the referral of this patient. Sincerely, Desirae Mckeon, OTR/L, CHT <Electronically signed by Desirae Mckeon OTR/Henry, CHT> 06/17/22 0800 CC: Dr. True Ibarra, DO; ESSENCE THORNE ~ [facility] Signed [facility] Work Phone: [phone]) [phone] Evaluation note* Diagnosis Onset Date Resolution Status History of coronary artery stent placement October acute Essential hypertension chron ic Rotator cuff tendonitis acut e [facility] Work Phone: [phone]) [phone] Evaluation note* Diagnosis Onset Date Resolution Status Gammopathy resolved Leukopenia resolved Neutropenia resolved Chest pain acute History of coronary artery stent placement October acute Essential hypertension chron ic [facility] Work Phone: [phone]) [phone] Evaluation note* Diagnosis Onset Date Resolution Status Gammopathy resolved Leukopenia resolved Neutropenia resolved Chest pain acute History of coronary artery stent placement October acute Essential hypertension chron ic Internal derangement of right shoulder acute [facility] Work Phone: [phone]) [phone] Evaluation note* Diagnosis Onset Date Resolution Status Internal derangement of right shoulder acute Bursitis of right shoulder a cute Supraspinatus tendon tear ac [place] History of coronary artery stent placement October acute Essential hypertension chron ic Effusion of right knee acute Tear of medial meniscus of left knee acute Contusion of knee, left acut e Tear of cartilage of left knee acute Tear of medial meniscus of left knee acute [facility] Work Phone: [phone]) [phone] Evaluation note* Diagnosis Onset Date Resolution Status Internal derangement of right shoulder acute Bursitis of right shoulder a cute Supraspinatus tendon tear ac [place] History of coronary artery stent placement October acute Essential hypertension chron ic Effusion of right knee acute Tear of medial meniscus of left knee acute Contusion of knee, left acut e Tear of cartilage of left knee acute Tear of medial meniscus of left knee acute Tear of cartilage of left knee acute Tear of medial meniscus of left knee acute [facility] Work Phone: [phone]) [phone] Evaluation note* Diagnosis Onset Date Resolution Status History of coronary artery stent placement October acute Essential hypertension chron ic Effusion of right knee acute Tear of medial meniscus of left knee acute Contusion of knee, left acut e Tear of cartilage of left knee acute Tear of medial meniscus of left knee acute Tear of cartilage of left knee acute Tear of medial meniscus of left knee acute [facility] Work Phone: [phone]) [phone] Evaluation note* Diagnosis Onset Date Resolution Status Effusion of right knee acute Tear of cartilage of left knee acute Tear of medial meniscus of left knee acute History of coronary artery stent placement October acute Essential hypertension chron ic [facility] Work Phone: [phone]) [phone] Evaluation note* Diagnosis Onset Date Resolution Status Effusion of right knee acute Tear of cartilage of left knee acute Tear of medial meniscus of left knee acute History of coronary artery stent placement October acute Essential hypertension chron ic Left hamstring muscle strain acute Gammopathy resolved Leukopenia resolved Anemia acute Elevated serum creatinine ac [place] Leukopenia resolved [facility] Work Phone: [phone]) [phone] Evaluation note* Diagnosis Onset Date Resolution Status History of coronary artery stent placement October acute Essential hypertension chron ic Left hamstring muscle strain acute Gammopathy resolved Leukopenia resolved Anemia acute Elevated serum creatinine ac [place] Leukopenia resolved Arthritis of right acromioclavicular joint acute [facility] Work Phone: [phone]) [phone] Evaluation note* Diagnosis Onset Date Resolution Status History of coronary artery stent placement October acute Essential hypertension chron ic Left hamstring muscle strain acute Gammopathy resolved Leukopenia resolved Anemia acute Elevated serum creatinine ac [place] Leukopenia resolved Arthritis of right acromioclavicular joint acute Right rotator cuff tendinitis acute [facility] Work Phone: [phone]) [phone] Evaluation note* Diagnosis Onset Date Resolution Status History of coronary artery stent placement October acute Essential hypertension [facility] Work Phone: Evaluation noteThere may be information available, but it has not been provided by the sender.[facility] Work Phone: Evaluation note* Diagnosis Onset Date Resolution Status Effusion of right knee acute Tear of medial meniscus of left knee acute Tibialis posterior tendonitis acute [facility] Work Phone: Evaluation note* Diagnosis Onset Date Resolution Status Tibialis posterior tendonitis acute Gammopathy resolved Leukopenia resolved Neutropenia resolved [facility] Work Phone: Evaluation note* Diagnosis Onset Date Resolution Status Tibialis posterior tendonitis acute Gammopathy resolved Leukopenia resolved Neutropenia resolved Chest pain acute History of coronary artery stent placement October acute Essential hypertension [facility] Work Phone: Evaluation note* Diagnosis Onset Date Resolution Status Left hamstring muscle strain acute Gammopathy resolved Leukopenia resolved Anemia acute Elevated serum creatinine ac [place] Leukopenia resolved Arthritis of right acromioclavicular joint acute Right rotator cuff tendinitis acute [facility] Work Phone: Evaluation note* Diagnosis Onset Date Resolution Status Gammopathy resolved Leukopenia resolved Anemia acute Elevated serum creatinine ac [place] Leukopenia resolved Arthritis of right acromioclavicular joint acute Right rotator cuff tendinitis acute [facility] Work Phone: Evaluation note* Diagnosis Onset Date Resolution Status Anemia acute Elevated serum creatinine ac [place] Leukopenia resolved Arthritis of right acromioclavicular joint acute Right rotator cuff tendinitis acute Spontaneous bruising acute Gammopathy resolved Leukopenia resolved [facility] Work Phone: Evaluation note* Diagnosis Onset Date Resolution Status Arthritis of right acromioclavicular joint acute Right rotator cuff tendinitis acute Spontaneous bruising acute Gammopathy resolved Leukopenia resolved Rotator cuff tear, right non eactive Right rotator cuff tendinitis acute Right shoulder pain acute Tear of right rotator cuff a cute Spontaneous bruising acute [facility] Work Phone: Evaluation note* Diagnosis Onset Date Resolution Status Spontaneous bruising acute Gammopathy resolved Leukopenia resolved Rotator cuff tear, right non eactive Right rotator cuff tendinitis acute Right shoulder pain acute Tear of right rotator cuff a cute Spontaneous bruising acute History of coronary artery stent placement October acute Essential hypertension chron ic [facility] Work Phone: Evaluation noteNo assessment information available [facility] Work Phone: Hospital Discharge instructionsAmbulatory Orders* Return to Office Location: None Selected [facility] Work Phone: Instructions* Instruction Description Start Date Completed [facility] [facility] Work Phone: Instructions* Instruction Description Start Date Completed [facility] Work Phone: Reason for referral (narrative)No reason for referral information availableWTrinity [facility] [facility]: Summary Purpose Family History No Family History Records Found Relationship Condition Age at Onset Recorded Date/T tommy mother Malignant neoplasm of lung Unknown father Malignant neoplasm Unknown Depression Unknown Pulmonary emphysema Unknown Relationship Condition Age at Onset Recorded Date/T tommy mother Malignant neoplasm of lung Unknown father Malignant neoplasm Unknown Depression Unknown Pulmonary emphysema Unknown sister Presence of cardiac pacemaker Unknown Advance Directives No Advanced Directives Records Found Advance Directive Response Recorded Date/ Time Advance Directives No November 10:21am Living Will No May 29, 2021 12:50pm Power of [employer] No May 29 12:50pm Advance Directive Response Recorded Date/ Time Advance Directives No November 9:21am Living Will No May 29, 2021 11:50am Power of [employer] No May 29 11:50am Advance Directive Response Recorded Date/ Time Advance Directives No February 3:44pm Living Will No March 02, 2 023 3:44pm Power of [employer] No March 02, 2023 3:44pm Advance Directive Response Recorded Date/ Time Advance Directives No February 4:44pm Living Will No March 02, 023 4:44pm Power of [employer] No March 02, 2023 4:44pm Advance Directive Response Recorded Date/ Time Living Will No March 02, 2 023 4:44pm Do you have a Healthcare Power of [employer]? No March 02, 2023 4:44pm Advance Directives No February 4:44pm Advance Directive Response Recorded Date/ Time Advance Directives No February 4:44pm Chief Complaint Chief Complaint Description Start Date [...] by the author as of Chief Complaint and Reason for Visit Chief Complaint M48.02 6 M FU RIGHT KNEE/RIGHT SHOULDER NEOPLASM ON CONNECTIVE/SOFT TISSUE. PT HAS RX Reason for Visit History of coronary artery stent placement Essential hypertension Rotator cuff tendonitis Chief Complaint NEOPLASM ON CONNECTI VE/SOFT TISSUE. PT HAS RX Bilat knees xray RIGHT KNEE xray Reason for Visit Effusion of right kn ee Tear of medial meniscus of left knee Tibialis posterior tendonitis Chief Complaint RIGHT KNEE xray ONC/HEM 1YR LABS LEFT ELBOW PAIN Reason for Visit Tibialis posterior t endonitis Gammopathy Leukopenia Neutropenia Chief Complaint RIGHT KNEE xray ONC/HEM 1YR LABS LEFT ELBOW PAIN XRAYS OF LUMBAR SPINE 6 M FU Reason for Visit Tibialis posterior t endonitis Gammopathy Leukopenia Neutropenia Chest pain History of coronary artery stent placement Essential hypertension Chief Complaint ONC/HEM 1YR LABS LEFT ELBOW PAIN XRAYS OF LUMBAR SPINE 6 M FU CP CP Reason for Visit Gammopathy Leukopenia Neutropenia Chest pain History of coronary artery stent placement Essential hypertension Chief Complaint ONC/HEM 1YR LABS LEFT ELBOW PAIN XRAYS OF LUMBAR SPINE 6 M FU CP CP RIGHT SHOULDER TRAUMATIC PARTIAL TEAR OF L BICEPS TENDON/RXHERE RT SHOULDER PAIN Reason for Visit Gammopathy Leukopenia Neutropenia Chest pain History of coronary artery stent placement Essential hypertension Internal derangement of right shoulder Chief Complaint RIGHT SHOULDER RT SHOULDER PAIN RIGHT SHOULDER TRAUMATIC PARTIAL TEAR OF L BICEPS TENDON/RXHERE 3 M FU BILAT KNEES room 1 INT LABS LEFT KNEE PAIN LEFT KNEE PAIN IN LEGS Reason for Visit Internal derangement of right shoulder Bursitis of right shoulder Supraspinatus tendon tear History of coronary artery stent placement Essential hypertension Effusion of right knee Tear of medial meniscus of left knee Contusion of knee, left Tear of cartilage of left knee Tear of medial meniscus of left knee Chief Complaint RIGHT SHOULDER RT SHOULDER PAIN RIGHT SHOULDER TRAUMATIC PARTIAL TEAR OF L BICEPS TENDON/RXHERE 3 M FU BILAT KNEES room 1 INT LABS LEFT KNEE PAIN LEFT KNEE PAIN IN LEGS DDD LEFT KNEE Reason for Visit Internal derangement of right shoulder Bursitis of right shoulder Supraspinatus tendon tear History of coronary artery stent placement Essential hypertension Effusion of right knee Tear of medial meniscus of left knee Contusion of knee, left Tear of cartilage of left knee Tear of medial meniscus of left knee Tear of cartilage of left knee Tear of medial meniscus of left knee Chief Complaint TRAUMATIC PARTIAL TE AR OF L BICEPS TENDON/RXHERE 3 M FU BILAT KNEES room 1 INT LABS LEFT KNEE PAIN LEFT KNEE PAIN IN LEGS DDD LEFT KNEE Reason for Visit History of coronary artery stent placement Essential hypertension Effusion of right knee Tear of medial meniscus of left knee Contusion of knee, left Tear of cartilage of left knee Tear of medial meniscus of left knee Tear of cartilage of left knee Tear of medial meniscus of left knee Chief Complaint BL KNEES 6 M FU Reason for Visit Effusion of right kn ee Tear of cartilage of left knee Tear of medial meniscus of left knee History of coronary artery stent placement Essential hypertension Chief Complaint BL KNEES 6 M FU left knee Xray room 2 ONC/HEM 1YR LABS Reason for Visit Effusion of right kn ee Tear of cartilage of left knee Tear of medial meniscus of left knee History of coronary artery stent placement Essential hypertension Left hamstring muscle strain Gammopathy Leukopenia Anemia Elevated serum creatinine Leukopenia Chief Complaint BL KNEES 6 M FU left knee Xray room 2 ONC/HEM 1YR LABS 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 Reason for Visit Effusion of right kn ee Tear of cartilage of left knee Tear of medial meniscus of left knee History of coronary artery stent placement Essential hypertension Left hamstring muscle strain Gammopathy Leukopenia Anemia Elevated serum creatinine Leukopenia Chief Complaint 6 M FU left knee Xray room 2 ONC/HEM 1YR LABS 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 RIGHT SHOULDER Room 1 24 HR URINE Reason for Visit History of coronary artery stent placement Essential hypertension Left hamstring muscle strain Gammopathy Leukopenia Anemia Elevated serum creatinine Leukopenia Arthritis of right acromioclavicular joint Chief Complaint 6 M FU left knee Xray room 2 ONC/HEM 1YR LABS 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 RIGHT SHOULDER Room 1 24 HR URINE LEFT SHOULDER Reason for Visit History of coronary artery stent placement Essential hypertension Left hamstring muscle strain Gammopathy Leukopenia Anemia Elevated serum creatinine Leukopenia Arthritis of right acromioclavicular joint Right rotator cuff tendinitis Chief Complaint left knee Xray room 2 ONC/HEM 1YR LABS 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 RIGHT SHOULDER Room 1 24 HR URINE LEFT SHOULDER Reason for Visit Left hamstring muscl e strain Gammopathy Leukopenia Anemia Elevated serum creatinine Leukopenia Arthritis of right acromioclavicular joint Right rotator cuff tendinitis Chief Complaint ONC/HEM 1YR LABS 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 RIGHT SHOULDER Room 1 24 HR URINE LEFT SHOULDER Other forms of dyspnea Amb Documentation Reason for Visit Gammopathy Leukopenia Anemia Elevated serum creatinine Leukopenia Arthritis of right acromioclavicular joint Right rotator cuff tendinitis Chief Complaint 1YR LABS 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 RIGHT 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 Room 1 24 HR URINE LEFT SHOULDER Other forms of dyspnea Amb Documentation RIGHT SHOULDER PAIN F/U PER PCP NO LABS ONC/HEM Reason for Visit Anemia Elevated serum creatinine Leukopenia Arthritis of right acromioclavicular joint Right rotator cuff tendinitis Spontaneous bruising Gammopathy Leukopenia Chief Complaint RIGHT SHOULDER Room 1 24 HR URINE LEFT SHOULDER Other forms of dyspnea Amb Documentation RIGHT SHOULDER PAIN F/U PER PCP NO LABS ONC/HEM LEFT SHOULDER LEFT SHOULDER 2WKS LABS PRIOR EORDER ROOF AND 2 ADDT ORDERS Reason for Visit Arthritis of right a cromioclavicular joint Right rotator cuff tendinitis Spontaneous bruising Gammopathy Leukopenia Rotator cuff tear, right Right rotator cuff tendinitis Right shoulder pain Tear of right rotator cuff Spontaneous bruising Chief Complaint Other forms of dyspn ea Amb Documentation RIGHT SHOULDER PAIN F/U PER PCP NO LABS ONC/HEM LEFT SHOULDER LEFT SHOULDER 2WKS LABS PRIOR EORDER ROOF AND 2 ADDT ORDERS 1 Y FU PAIN- COPY PCP TEAR OF R RTC,LABRUM/RX W/ PT Reason for Visit Spontaneous bruising Gammopathy Leukopenia Rotator cuff tear, right Right rotator cuff tendinitis Right shoulder pain Tear of right rotator cuff Spontaneous bruising History of coronary artery stent placement Essential hypertension Chief Complaint EORDER ROOF AND 2 AD DT ORDERS 1 Y FU PAIN- COPY PCP TEAR OF R RTC,LABRUM/RX W/ PT Reason for Visit History of coronary artery stent placement Essential hypertension Chief Complaint Admit Date RIGHT KNEE March 21, 2024 8: 01am Room 1 March 21, 2024 8: 18am 1 Y FU March 22, 2024 8: 30am BRUISING AGAIN April 04, 2024 1 :24pm ONC/HEM April 04, 2024 2 :00pm RIGHT KNEE April 11, 2024 8 :27am PAIN- COPY PCP April 23, 2024 9:45am 2WKS LABS PRIOR April 26, 2024 3:51pm IT BAND SYNDROME. RX HERE June 06 7:30am Reason for Visit Admit Date H/O total knee replacement March 21, 2024 8:01am IT band syndrome March 21, 2024 8: 01am History of coronary artery stent placeme nt March 22, 2024 8:30am Essential hypertension March 22, 2024 8:30am Ischemic cardiomyopathy March 22 8:30am Spontaneous bruising April 04, 2024 1:24pm Gammopathy April 04, 2024 2 :00pm Leukopenia April 04, 2024 2 :00pm H/O total knee replacement April 11, 2024 8:27am IT band syndrome April 11, 2024 8 :27am Spontaneous bruising April 26, 2024 3:51pm Chief Complaint Admit Date IT BAND SYNDROME. 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 July 19, 2024 2:48pm Spontaneous bruising July 19, 2024 2:48p m Chief Complaint Admit Date RIGHT KNEE July 02, 2024 8:1 1am 2 ORDERING MELODY July 05, 2024 2:3 0pm ONC/HEM July 19, 2024 2:45pm 12WKS LABS July 19, 2024 2:48pm RT KN PAIN/RX HERE September 28, 2024 7:00 am PAIN- COPY PCP October 08, 2024 8:08 am Chief Complaint Admit Date RT KN PAIN/RX HERE September 28, 2024 7:00 am PAIN- COPY PCP October 08, 2024 8:08 am PAIN- COPY PCP December 04, 2024 3:06pm Additional Source Comments (unrecognized sect ion and content) No Status Records FoundNo Status Records Found INFORMATION SOURCE (unrecogn ized section and content) DATE CREATED AUTHOR 09/02/2017 [facility] DATE CREATED AUTHOR AUTHOR'S ORGANIZ ATION 01/25/[address] [facility] Reason for Visit (unrecogniz ed section and [...] AND RING FINGERS; REPAIR EIP on 05/11/2021 Goals (unrecognized section and content) Goals may be documented in a n alternate sectionGoals may be documented in an alternate sectionGoals may be documented in an alternate sectionGoals may be documented in an alternate sectionGoals may be documented in an alternate sectionGoals may be documented in an alternate sectionGoals may be documented in an alternate sectionGoals may be documented in an alternate sectionGoals may be documented in an alternate sectionGoals may be documented in an alternate sectionGoals may be documented in an alternate sectionGoals may be documented in an alternate sectionGoals may be documented in an alternate sectionGoals may be documented in an alternate sectionGoals may be documented in an alternate sectionGoals may be documented in an alternate sectionGoals may be documented in an alternate sectionGoals may be documented in an alternate sectionGoals may be documented in an alternate sectionGoals may be documented in an alternate sectionGoals may be documented in an alternate sectionGoals may be documented in an alternate sectionGoals may be documented in an alternate sectionGoals may be documented in an alternate sectionGoals may be documented in an alternate sectionGoals may be documented in an alternate sectionGoals may be documented in an alternate sectionGoals may be documented in an alternate sectionGoals may be documented in an alternate section Care Teams (unrecognized sec tion and content) Team Status: Active Member Role Status Dates Dr. True Ibarra , DO Family Provider Active Dr. True Ibarra DO Primary Care Provider Active Team Status: Inactive Member Role Status Dates Dr. True Ibarra , DO Primary Care Provider, Referrin g Provider Active Cody Ryder 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, 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 Attending Provider Active Team Status: Inactive Member Role Status Dates Dr. True Ibarra DO Primary Care Provider, Referrin g Provider Active Dr. Reginaldo Blank , DO Attending Provider Active Team Status: Inactive Member Role Status Dates Dr. True Ibarra DO Primary Care Provider Active Dr. Ricardo Garner MD Attending Provider Active Team Status: Active Member Role Status Dates Dr. True Ibarra DO Primary Care Provider Active FADUMO LOWRY Attending Provider, Referring Provider Active Team Status: Inactive Member Role Status Dates Dr. True Ibarra , DO Primary Care Provider Active Dr. Reginaldo Blank , DO Attending Provider Active Team Status: Inactive Member Role Status Dates Dr. True Ibarra DO Primary Care Provider Active Dr. Tito Krause , DO Attending Provider, Referring Provider Active Team Status: Active Member Role Status Dates Dr. True Ibarra DO Primary Care Provider Active Dr. Reginaldo Blank , DO Attending Provider Active Team Status: Inactive Member Role Status Dates Dr. True Ibarra DO Primary Care Provider Active Dr. Tito Krause , DO Attending Provider, Referring Provider Active Desirae Yanes PA, PA Other Provider Active Team Status: Active Member Role Status Dates Dr. True Ibarra DO Primary Care Provider Active Dr. Tito Krause , DO Attending Provider, Referring Provider Active Team Status: Active Member Role Status Dates Dr. True Ibarra DO Primary Care Provider Active AWA DOMINGUEZ Attending Provider, Referring Provider Active Team Status: Inactive Member Role Status Dates Dr. True Ibarra DO Primary Care Provider Active ANGELICAAWA TO Attending Provider, Referring Provider Active Team Status: Inactive Member Role Status Dates Dr. True Ibarra DO Primary Care Provider Active Dr. Jere Chery MD Attending Provider Active Team Status: Inactive Member Role Status Dates Dr. True Ibarra DO Primary Care Provider Active FADUMO LOWRY Attending Provider, Referring Provider Active Team Status: Inactive Member Role Status Dates Dr. True Ibarra DO Primary Care Provider, Referrin g Provider Active Dr. Reginaldo Nava MD Active Ilsa Santillan 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, 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 Attending Provider Active Team Status: Active Member Role Status Dates Dr. True Ibarra DO Primary Care Prov ider, Family Provider, Referring Provider Active Dr. Reginaldo Nava MD Attending Provider Active Team Status: Inactive Member Role Status Dates Dr. True Ibarra DO Primary Care Prov ider, Attending Provider, Referring Provider Active Team Status: Inactive Member Role Status Dates Dr. True Ibarra DO Primary Care Provider, Attendin g Provider Active Team Status: Active Member Role Status Dates Dr. True Ibarra DO Primary Care Prov ider, Attending Provider, Referring Provider Active Team Status: Inactive Member Role Status Dates Dr. True Ibarra DO Primary Care Prov ider, Attending Provider, Referring Provider Active Dr. Tito Krause , DO Other Provider Active Team Status: Active Member Role Status Dates Dr. True Ibarra DO Primary Care Provider Active Dr. Holly Arzola MD Attending Provider, Referring Provider Active Team Status: Inactive Member Role Status Dates Dr. True Ibarra DO Primary Care Provider Active Dr. Holly Arzola MD Attending Provider, Referring Provider Active Team Status: Active Member Role Status Dates Dr. True Ibarra DO Primary Care Provider Active Dr. Ricardo Garner MD Attending Provider Active Team Status: Active Member Role Status Dates Dr. True Ibarra DO Primary Care Provider Active Cody Ryder 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, 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 Attending Provider Active Team Status: Inactive Member Role Status Dates Dr. True Ibarra DO Primary Care Provider Active Cody Ryder 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, 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 Attending Provider, Referring Pro vider Active Team Status: Active Member Role Status Dates Dr. True Ibarra DO Primary Care Provider Active Dr. Ricardo Garner MD Attending Provider Active Cody Ryder 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, 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 Referring Provider Active Team Status: Inactive Member Role Status Dates Dr. True Ibarra DO Primary Care Provider, Referrin g Provider Active Dr. Reginaldo Nava MD Attending Provider Active Team Status: Inactive Member Role Status Dates Dr. True Ibarra DO Primary Care Provider Active Dr. Reginaldo Blank DO Attending Provider, Referring Provider Active Team Status: Inactive Member Role Status Dates Dr. True Ibarra DO Primary Care Provider, Referrin g Provider Active Dakota Guillermo MD Attending Provider Active Team Status: Inactive Member Role Status Dates Dr. True Ibarra DO Primary Care Provider Active Cody Ryder 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, 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 Attending Provider, Referring Pro vider Active Dr. Tito Krause , Other Provider Active Dr. Holly Arzola MD Other Provider Active Team Status: Inactive Member Role Status Dates Dr. True Ibarra DO Primary Care Provider, Referrin g Provider Active Dr. Ricardo Garner MD Attending Provider Active Team Status: Active Member Role Status Dates Dr. True Ibarra DO Primary Care Provider Active Dr. Essence Thorne MD Attending Provider, Referring P rovider Active Team Status: Active Member Role Status Dates Dr. True Ibarra DO Primary Care Provider Active Team Status: Inactive Member Role Status Dates Dr. True Ibarra DO Primary Care Provider Active Start: March 21, 2024 End: March 21, 2024 Dr. True Ibarra DO Referring Provider Active Start: March 21, 2024 End: March 21, 2024 Dr. Reginaldo Blank DO Attending Provider Active Start: March 21, 2024 End: March 21, 2024 Team Status: Inactive Member Role Status Dates Dr. True Ibarra DO Primary Care Provider Active Start: March 21, 2024 End: March 21, 2024 Dr. Ricardo Garner MD Attending Provider Active S tart: March 21, 2024 End: March 21, 2024 Team Status: Inactive Member Role Status Dates Dr. True Ibarra DO Primary Care Provider Active Start: March 22, 2024 End: March 22, 2024 Dr. True Ibarra DO Referring Provider Active Start: March 22, 2024 End: March 22, 2024 Cody Ryder 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, 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 Attending Provider Active S tart: March 22, 2024 End: March 22, 2024 Team Status: Inactive Member Role Status Dates Dr. True Ibarra DO Primary Care Provider Active Start: April 04, 2024 End: April 04, 2024 Dr. True Ibarra DO Referring Provider Active Start: April 04, 2024 End: April 04, 2024 Dr. Reginaldo Nava MD Attending Provider Active S tart: April 04, 2024 End: April 04, 2024 Team Status: Active Member Role Status Dates Dr. True Ibarra DO Primary Care Provider Active Start: April 04, 2024 Dr. True Ibarra DO Family Provider Active St art: April 04, 2024 Dr. True Ibarra DO Referring Provider Active Start: April 04, 2024 Dr. Reginaldo Nava MD Attending Provider Active S tart: April 04, 2024 Team Status: Inactive Member Role Status Dates Dr. True Ibarra DO Referring Provider Active Start: April 11, 2024 End: April 11, 2024 Dr. Reginaldo Blank DO Attending Provider Active Start: April 11, 2024 End: April 11, 2024 Team Status: Inactive Member Role Status Dates Dr. True Ibarra DO Primary Care Provider Active Start: April 23, 2024 End: April 23, 2024 Dr. Holly Arzola MD Attending Provider Active Start: April 23, 2024 End: April 23, 2024 Dr. Holly Arzola MD Referring Provider Active Start: April 23, 2024 End: April 23, 2024 Team Status: Inactive Member Role Status Dates Ilsa Santillan 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, 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 Attending Provider Active Start: April 26, 2024 End: April 26, 2024 Dr. True Ibarra DO Primary Care Provider Active Start: April 26, 2024 End: April 26, 2024 Dr. True Ibarra DO Referring Provider Active Start: April 26, 2024 End: April 26, 2024 Team Status: Inactive Member Role Status Dates Dr. True Ibarra DO Primary Care Provider Active Start: April 26, 2024 End: April 26, 2024 Ilsa Santillan 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, 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 Attending Provider Active Start: April 26, 2024 End: April 26, 2024 Ilsa Santillan 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, 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 Referring Provider Active Start: April 26, 2024 End: April 26, 2024 Team Status: Inactive Member Role Status Dates Dr. True Ibarra DO Primary Care Provider Active Start: June 06, 2024 End: June 06, 2024 Dr. Reginaldo Blank DO Attending Provider Active Start: June 06, 2024 End: June 06, 2024 Dr. Reginaldo Blank DO Referring Provider Active Start: June 06, 2024 End: June 06, 2024 Team Status: Active Member Role/Relationship Status Dates Dr. True Ibarra DO Primary Care Provider Active Team Status: Inactive Member Role/Relationship Status Dates Dr. True Ibarra DO Primary Care Provider Active Start: June 06, 2024 End: June 06, 2024 Dr. Reginaldo Blank DO Attending Provider Active Start: June 06, 2024 End: June 06, 2024 Dr. Reginaldo Blank DO Referring Provider Active Start: June 06, 2024 End: June 06, 2024 Team Status: Inactive Member Role/Relationship Status Dates Dr. True Ibarra DO Primary Care Provider Active Start: July 02, 2024 End: July 02, 2024 Dr. True Ibarra DO Referring Provider Active Start: July 02, 2024 End: July 02, 2024 Dr. Reginaldo Blank DO Attending Provider Active Start: July 02, 2024 End: July 02, 2024 Team Status: Inactive Member Role/Relationship Status Dates Dr. True Ibarra DO Primary Care Provider Active Start: July 05, 2024 End: July 05, 2024 Dr. Holly Arzola MD Attending Provider Active Start: July 05, 2024 End: July 05, 2024 Dr. Holly Arzola MD Referring Provider Active Start: July 05, 2024 End: July 05, 2024 BIPIN LAINEZ Other Provider Active Start: July 05, 2024 End: July 05, 2024 Team Status: Active Member Role/Relationship Status Dates Dr. True Ibarra DO Primary Care Provider Active Start: July 19, 2024 Dr. True Ibarra DO Family Provider Active St art: July 19, 2024 Dr. True Ibarra DO Referring Provider Active Start: July 19, 2024 Dr. Reginaldo Nava MD Attending Provider Active S tart: July 19, 2024 Team Status: Inactive Member Role/Relationship Status Dates Dr. True Ibarra DO Primary Care Provider Active Start: July 19, 2024 End: July 19, 2024 Dr. True Ibarra DO Referring Provider Active Start: July 19, 2024 End: July 19, 2024 Dr. Reginaldo aNva MD Attending Provider Active S tart: July 19, 2024 End: July 19, 2024 Team Status: Inactive Member Role/Relationship Status Dates Dr. True Ibarra DO Primary Care Provider Active Start: September 28, 2024 End: September 28, 2024 Dr. Reginaldo Blank DO Attending Provider Active Start: September 28, 2024 End: September 28, 2024 Dr. Reginaldo Blank DO Referring Provider Active Start: September 28, 2024 End: September 28, 2024 Team Status: Inactive Member Role/Relationship Status Dates Dr. True Ibarra DO Primary Care Provider Active Start: July 02, 2024 End: July 02, 2024 Dr. True Ibarra DO Referring Provider Active Start: July 02, 2024 End: July 02, 2024 Dr. Reginaldo Blank DO Attending Provider Active Start: July 02, 2024 End: July 02, 2024 Team Status: Inactive Member Role/Relationship Status Dates Dr. True Ibarra DO Primary Care Provider Active Start: July 05, 2024 End: July 05, 2024 Dr. Holly Arzola MD Attending Provider Active Start: July 05, 2024 End: July 05, 2024 Dr. Holly Arzola MD Referring Provider Active Start: July 05, 2024 End: July 05, 2024 BIPIN LAINEZ Other Provider Active Start: July 05, 2024 End: July 05, 2024 Team Status: Active Member Role/Relationship Status Dates Dr. True Ibarra DO Primary Care Provider Active Start: July 19, 2024 Dr. True Ibarra DO Family Provider Active St art: July 19, 2024 Dr. True Ibarra DO Referring Provider Active Start: July 19, 2024 Dr. Reginaldo Nava MD Attending Provider Active S tart: July 19, 2024 Team Status: Inactive Member Role/Relationship Status Dates Dr. True Ibarra DO Primary Care Provider Active Start: July 19, 2024 End: July 19, 2024 Dr. True Ibarra DO Referring Provider Active Start: July 19, 2024 End: July 19, 2024 Dr. Reginaldo Nava MD Attending Provider Active S tart: July 19, 2024 End: July 19, 2024 Team Status: Inactive Member Role/Relationship Status Dates Dr. True Ibarra DO Primary Care Provider Active Start: September 28, 2024 End: September 28, 2024 Dr. Reginaldo Blank DO Attending Provider Active Start: September 28, 2024 End: September 28, 2024 Dr. Reginaldo Blank DO Referring Provider Active Start: September 28, 2024 End: September 28, 2024 Team Status: Inactive Member Role/Relationship Status Dates Dr. True Ibarra DO Primary Care Provider Active Start: October 08, 2024 End: October 08, 2024 Dr. Holly Arzola MD Attending Provider Active Start: October 08, 2024 End: October 08, 2024 Dr. Holly Arzola MD Referring Provider Active Start: October 08, 2024 End: October 08, 2024 Team Status: Active Member Role/Relationship Status Dates Dr. True Ibarra DO Primary care physician Active Team Status: Inactive Member Role/Relationship Status Dates Dr. True Ibarra DO Primary care physician Active Start: September 28, 2024 End: September 28, 2024 Dr. Reginaldo Blank DO Attending physician Active Start: September 28, 2024 End: September 28, 2024 Dr. Reginaldo Blank DO Referring Provider Active Start: September 28, 2024 End: September 28, 2024 Team Status: Inactive Member Role/Relationship Status Dates Dr. True Ibarra DO Primary care physician Active Start: October 08, 2024 End: October 08, 2024 Dr. Holly Arzola MD Attending physician Active Start: October 08, 2024 End: October 08, 2024 Dr. Holly Arzola MD Referring Provider Active Start: October 08, 2024 End: October 08, 2024 Team Status: Inactive Member Role/Relationship Status Dates Dr. True Ibarra DO Primary care physician Active Start: December 04, 2024 End: December 04, 2024 Dr. Holly Arzola MD Attending physician Active Start: December 04, 2024 End: December 04, 2024 Dr. Holly Arzola MD Referring Provider Active Start: December 04, 2024 End: December 04, 2024 FOR RECORDS PERTAINING TO PATIENTS WHO ARE [...] BE BASED ON THE PRIMARY CLINICAL RECORDS. [employer] provides no warranty or guarantee of the accuracy or completeness of information in this document.
== END | disposition home or self-care (01) ==
LOC: MTRAD 13:15
PROVIDERS: PCP Family Medicine; Referring Provider Family Medicine; Visit Provider Family Medicine
DX: M25.531 Pain in right wrist (principal)
CPT/HCPCS: 73110

== ENCOUNTER → 2025-01-28 | Outpatient (CLI) | payer MEDICARE, OTHER, SELFPAY ==
[2023-03-02 15:44] VITALS: BMI 25.8
[2025-01-28 12:27] LABS: Hematocrit 36.4 % (40-54); Hemoglobin 12.2 g/dL (13.0-16.5); Immature Reticulocyte Fraction 12.00 % (3.00-15.90); Platelet Count 204 K/mm3 (150-450); Reticulocyte Count 0.63 % (0.5-1.5)
[2025-01-28 13:17] LABS: Ferritin 113 ng/mL (37-417); Vitamin B12 635 pg/mL (180-914)
== END | disposition home or self-care (01) ==
LOC: MTLAB 09:30
PROVIDERS: PCP Family Medicine; Referring Provider Internal Medicine Endocrinology, Diabetes & Metabolism; Visit Provider Internal Medicine Endocrinology, Diabetes & Metabolism
DX: D64.9 Anemia, unspecified (principal)
CPT/HCPCS: 36415; 82607; 82728; 85014; 85018; 85045

== ENCOUNTER → 2025-02-19 | Outpatient (CLI) | payer MEDICARE, OTHER, SELFPAY ==
[2023-03-02 15:44] VITALS: BMI 25.8
[2025-02-19 12:42] LABS: Hematocrit 38.1 % (40-54); Hemoglobin 12.8 g/dL (13.0-16.5); Immature Granulocytes Count 0.010 X10^3/uL (0.0-0.0); Mean Corp Hgb Conc 33.6 g/dL (32-36); Mean Corpuscular Volume 89.9 fL (80-94); Mean Platelet Vol. 10.0 fl (6.2-12.0); NRBC Flagged by Analyzer 0 % (0-5); Platelet Count 189 K/mm3 (150-450); RBC Distribution Width CV 13.8 % (11.6-14.6); RBC Distribution Width SD 45.1 fl (35.1-43.9); Red Blood Count 4.24 M/mm3 (4.6-6.2); White Blood Count 4.2 K/mm3 (4.4-11.0)
[2025-02-19 13:02] LABS: AST(SGOT) 71 U/L (<=37); Alanine Aminotransfer ALT/SGPT 63 U/L (<=46); Albumin, Serum 4.5 g/dL (3.4-4.8); Alkaline Phosphatase 76 U/L (40-129); Anion Gap 10 (5-15); BUN 14 mg/dL (4-19); BUN/Creat Ratio 14.0 RATIO (10-20); Calcium,Total 9.4 mg/dL (7.6-11.0); Carbon Dioxide 26.7 mmol/L (21.0-32.0); Chloride 102 mmol/L (98-108); Globulin 2.4 g/dL (2.2-4.2); Glucose 107 mg/dL (70-99); Potassium 4.4 mmol/L (3.3-5.1)
== END | disposition home or self-care (01) ==
PROVIDERS: PCP Family Medicine; Referring Provider Internal Medicine Rheumatology; Visit Provider Internal Medicine Rheumatology
DX: M06.4 Inflammatory polyarthropathy (principal); M25.511 Pain in right shoulder; M17.0 Bilateral primary osteoarthritis of knee
CPT/HCPCS: 36415; 80053; 85025

== ENCOUNTER → 2025-03-01 | Outpatient (CLI) | payer MEDICARE, OTHER, SELFPAY ==
[2023-03-02 15:44] VITALS: BMI 25.8
--- NOTE | 2025-03-01 07:26 | US_ITS ---
PROCEDURE: LIVER, 03/01/2025 REASON FOR EXAM: ELEVATED LIVER ENZ COMPARISON: None TECHNIQUE: Grayscale and color Doppler imaging of the right upper quadrant was performed. FINDINGS: Liver: Grossly unremarkable echotexture. 13.5 cm in length. Gallbladder: Question trace sludge. No visualized stones, wall thickening or pericholecystic fluid. Reportedly, sonographic Beard's was negative. Biliary tree: Unremarkable. CBD measures 3 mm. Pancreas: Partially obscured by shadowing bowel gas, grossly unremarkable as visualized. Right kidney: 8 x 8 x 4 mm cyst. Echogenic nonshadowing possible nonobstructing intrarenal calculi versus prominent renal sinus fat up to 4 x 5 x 5 mm.. 10.6 cm in length. Other: No visualized free fluid. US/Liver IMPRESSION: 1. Grossly unremarkable hepatic echotexture. No visualized biliary dilatation. 2. Additional description as above. Reading Location: [id number]
--- OUTSIDE RECORDS SUMMARY | 2025-03-01 07:26 | XMS RPT_ITS | CCD ---
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 True Ibarra Referring Provider [phone] Dr. Ricardo Garner Attending Provider [phone] Dr. Reginaldo Blank Attending Provider [phone] Cody Cui MD Unavailable Dr. True Ibarra Primary Care Provider [phone] Dr. True Ibarra Referring Provider [phone] Dr. Reginaldo Blank Attending Provider [phone] Dr. Ricardo Garner Attending Provider [phone] BIPIN Elizabeth Attending Provider [phone] Dr. True Ibarra Primary Care Provider [phone] Dr. True Ibarra Referring Provider Dr. Ricardo Garner Attending Provider [phone] Reginaldo Nava Attending Provider BIPIN Gordon Attending Provider Dr. [...] [phone] Dr. True Ibarra Referring Provider Roof MENTAL HEALTH COORDINATOR, MENTAL HEALTH COORDINATOR-C Cody Hankins Attending Provider Dr. Ricardo Garner Attending Provider [phone] True Ibarra Primary Care Provider [phone] Dr. True Ibarra Referring Provider Britni MENTAL HEALTH COORDINATOR, MENTAL HEALTH COORDINATOR-C Cody Hankins Attending Provider Dr. Reginaldo Blank Attending Provider [phone] Dr. Ricardo Garner Attending Provider [phone] True Ibarra Primary Care Provider [phone] True Ibarra Referring Provider Dr. Reginaldo Blank Attending Provider Britni MENTAL HEALTH COORDINATOR, MENTAL HEALTH COORDINATOR-C Cody Hankins Attending Provider Dr. Ricardo Garner Attending Provider Jacque MENTAL HEALTH COORDINATOR, MENTAL HEALTH COORDINATOR-C Ilsa Attending Provider Dr. True Ibarra Primary Care Provider [phone] Dr. True Ibarra Referring Provider Dr. Reginaldo Blank Attending Provider Dr. True Ibarra Primary Care Provider [phone] Dr. True Ibarra Referring Provider Dr. True Ibarra Primary Care Provider [phone] True Ibarra Referring Provider Jacque MENTAL HEALTH COORDINATOR, MENTAL HEALTH COORDINATOR-C Ilsa Attending Provider Dr. Reginaldo Blank Attending Provider Dr. Ricardo Garner Attending Provider Roof MENTAL HEALTH COORDINATOR, MENTAL HEALTH COORDINATOR-C Cody Hankins Attending Provider Roof MENTAL HEALTH COORDINATOR, MENTAL HEALTH COORDINATOR-C Cody Hankins Referring Provider Dr. Reginaldo Nava [...] Dr. Ricardo Garner MD Attending Provider Roof MENTAL HEALTH COORDINATOR-CCody Attending Provider Elijah CLIFTON, Dr. Hair Attending Provider Dariusz CLIFTON, Dr. Barrera Attending Provider Dariusz CLIFTON, Dr. Barrera Referring Provider Jacque MENTAL HEALTH COORDINATOR-C, Ilsa Attending Provider Jacque MENTAL HEALTH COORDINATOR-C, Ilsa Referring Provider Abhay MIRZA, Dr. Hair [...] Provider GarthTrue mackey Primary Care Unavailable Jacque MENTAL HEALTH COORDINATOR, Ilsa Attending Unavailable Garth, True Referring Unavailable Garth, True Primary Care Unavailable Reginaldo Nava Attending Unavailable True Ibarra Referring Unavailable Holly Arzola Attending Unavailable Holly Arzola Referring Unavailable Agrth, True Primary Care Unavailable Garth, True Primary [...] Unavailable Garth, True Primary Care Unavailable Jacque MENTAL HEALTH COORDINATOR, Ilsa Referring Unavailable Jacque MENTAL HEALTH COORDINATOR, Ilsa Attending Unavailable Vellanki, Holly Referring Unavailable Garth, True Primary Care Unavailable KAVYA CUELLAR Consulting Unavailable Vellanki, Holly Attending Unavailable Garth, True Primary Care Unavailable Reginaldo Blank Attending Unavailable Reginaldo Blank Referring Unavailable Abhay, Reginaldo Attending Unavailable Garth, True Referring Unavailable Allergies Allergy Classification Reported Allergen(s) Allergy Type Date of Onset Reaction(s) Facility (1 source) bee pollen; Translations: [POLLEN] allergy to substance 4 [facility] Work Phone: (3 sources) ketorolac Drug Allergy 4 thoat swelling [facility] Work Phone: (3 sources) Sulfonamides (Antibiotic); Translations: [SULFA] drug allergy 4 lips swelling [facility] Work Phone: (20 sources) tetracycline; Translations: [TETRACYCLINE] Drug Allergy 4 mouth sores, Other [facility] Work Phone: (3 sources) tolmetin Drug Allergy 4 hives [facility] Work Phone: (2 sources) [employer] Animalia; Translations: [ANIMALS] allergy to substance 0 [facility] Work Phone: (2 sources) Mold Extract; Translations: [MOLD] Drug Allergy 0 [facility] Work Phone: (2 sources) PLANT POLLENS (HAY FEVER); Translations: [PLANT POLLENS (HAY FEVER)] allergy to substance 5 [facility] Work Phone: (20 sources) Ketorolac; Translations: [ketorolac tromethamine] Drug Allergy 2 Shortness of breath [facility] (20 sources) Pollen Allergy to substance 2 Unknown [facility] (20 sources) Sulfonamides (Antibiotic); Translations: [Sulfa (Sulfonamide Antibiotics)] Allergy to substance 2 Swelling [facility] (20 sources) Tolmetin; Translations: [tolmetin sodium] Drug Allergy 2 Hives [facility] (1 source) Pollen Drug allergy (disorder) 5 [facility] Repository Medications Current Medications Medication Drug Class(es) [...] mouth every eight hours as needed oxycodone-acetaminophen [id number] Elida Whitehead AT Start: 03-31-2018 End: 01-07-2020 [...] 1 po q6h a s needed OXYCODONE-ACETAMINOPHEN [id number] True Ibarra DO Start: 01-10-2014 End: 09-16-2016 [...] 06-06-2015 PERCOCET 7.5-325 MG TABS prn OXYCODONE-ACETAMINOPHEN [id number] True Ibarra DO aspirin 81 mg oral tablet (20 sources) Platelet Aggregation Inhibitor, Nonsteroidal Anti-inflammatory Drug Start: 11-10-2020 take 1 capsule by mouth once daily Adult Low Dose A spirin 81 mg tablet,delayed release (DR/EC) 1 tablet by mouth aspirin [id number] Elida Whitehead AT prasterone 25 mg oral capsul e (20 sources) Start: 03-31-2018 End: 11-05-2020 take 1 capsule by mouth once daily take 1 tablet by mouth once rachel y DHEA 25 MG TABS One tablet by mouth daily PRASTERONE (DHEA) [id number] Reginaldo Baxter DO DULoxetine 60 mg delayed [...] (1%) GEL 2 once a day testosterone [id number] Elida Whitehead AT Start: 06-06-2015 TESTIM 50 MG/5 GM (1%) GEL one pump on each arm daily TESTOSTERONE [id number] True Ibarra DO Start: 01-01-2014 Testosterone A [...] TESTIM GEL as directed 05/25 TESTOSTERONE GEL [id number] True Yogesh Garth MIRZA Start: 05-25-2013 TESTIM GEL as directed TESTOSTERONE GEL [id number] Jennie Hayes Completed/Discontinued Medications Medication Drug Class(es) Dates Sig (Normalized) Sig (Original) [id number] actuat albuterol 0.09 mg/actuat metered dose [...] shortness of breath or wheezing ALBUTEROL SULFATE [id number] True Yogesh Garth ALPRAZolam 0.5 mg oral [...] twice daily for 10 days. AMOXICILLIN-POT CLAVULANATE [id number] Christensen M Alam Start: 11-14-2014 End: 11-24-2014 take 1 tablet by mouth twice daily AUGMENTIN XR 1000-62.5 MG [id number] One tablet by mouth twice daily for 10 days. AMOXICILLIN-POT CLAVULANATE [id number] Christensen M Alam apixaban 2.5 mg oral [...] one tablet by mouth days 2-5 AZITHROMYCIN [id number] Fermin Modi Start: 07-10-2015 End: 08-18-2015 take 2 tablets by mouth once daily, then take 1 tablet by mouth AZITHROMYCIN 250 MG TABS Take 2 tablet PO the first day followed by 1 tablet PO through Day2-5 AZITHROMYCIN [id number] Anna Alexander PA-C Start: 06-11-2015 End: 06-16-2015 take 2 tablets by mouth once, then take 1 tablet by mouth once daily, then take 2-5 tablets by mouth AZITHROMYCIN 250 MG TABS 2 PO on day 1 then 1 PO daily on days 2-5 AZITHROMYCIN [id number] True Ibarra DO Beclomethasone Diprop Inhaler (20 [...] AERS inhale 2 puffs daily BECLOMETHASONE DIPROPIONATE [id number] Fermin Modi BEE POLLEN TABS (2 sources) Start: 05-25-2013 End: 04-23-2014 BEE POLLEN TABS as directed BEE POLLEN TABS [id number] Reginaldo Baxter DO Start: 05-25-2013 BEE POLLEN TAB S as directed BEE POLLEN TABS 12143267390 Jennie Hayes busPIRone hydrochloride 10 mg oral [...] One tablet by mouth daily BUSPIRONE HCL 16320493055 True Ibarra DO cefdinir 300 mg oral [...] TAB S 1 tablet by mouth clopidogrel [id number] Elida Whitehead AT cyclobenzaprine hydrochloride 10 mg [...] by mouth twice a day ferrous sulfate 86456551146 Elida PHILIP fexofenadine hydrochloride 180 mg oral tablet (5 sources) Histamine-1 Receptor Antagonist Start: 10-16-2019 take 1 tablet by mouth once daily ANYA ALLERGY 180 MG TABS 1 tablet by mouth once a day fexofenadine 67040016700 Elida Whitehead AT Start: 06-06-2015 take 1 tablet by graciela th once daily ANYA ALLERGY 180 MG TABS 1 po daily FEXOFENADINE HCL 84055953467 True Ibarra DO Start: 05-25-2013 take 1 tablet by graciela th twice daily ANYA ALLERGY TABS One tablet by mouth twice daily FEXOFENADINE HCL TABS [id number] Jennie Hayes Start: 05-25-2013 End: 04-23-2014 take 1 tablet by mouth twice daily ANYA ALLERGY TABS One tablet by mouth twice daily FEXOFENADINE HCL TABS 87130783142 Reginaldo Baxter DO 24 hr fexofenadine hydrochloride [...] TABS One tablet by mouth daily IBUPROFEN [id number] Reginaldo Baxter DO KETOROLAC TROMETHAMINE TABS (2 sources) Nonsteroidal Anti-inflammatory Drug, Cyclooxygenase Inhibitor Start: 05-26-19 End: 04-23-19 KETOROLAC TROMETHAMINE TABS as directed KETOROLAC TROMETHAMINE TABS [id number] Reginaldo Baxter DO Start: 05-25-2013 KETOROLAC TROM ETHAMINE TABS as directed KETOROLAC TROMETHAMINE TABS 60856158162 Jennie Hayes levoFLOXacin 500 mg oral tablet (2 sources) Quinolone Antimicrobial Start: 08-29-2014 End: 11-14-2014 LEVAQUIN 500 MG TABS Take 1 tablet PO Qdaily for 14 days LEVOFLOXACIN 26954075275 Padmini Daniels LPN lisinopril 5 mg oral [...] take as dir ected on pack METHYLPREDNISOLONE [id number] True Ibarra DO Start: 08-19-2015 MEDROL 4 MG TB PK take as directed on pack METHYLPREDNISOLONE 73724425807 Anna Alexander PA-C 24 hr metoprolol succinate 25 mg extended release oral tablet (20 sources) beta-Adrenergic Conrelio Start: 11-10-2020 End: 02-28-2024 take 1 tablet [...] One tablet by mouth daily MULTIPLE VITAMIN 48306688572 Reginaldo Baxter DO Multivitamin preparation (2 sources) Start: 10-16-2019 MULTI-VITAMINS TABS 1 capsule once a day multivitamin 64639706450 Elidasunny Patelearlene PHILIP nitroglycerin 0.4 mg sublingual [...] September 16, 2016 10:50am polyethylene glycol 3350 353349 mg / potassium chloride 2970 mg / sodium bicarbonate 6740 mg / sodium chloride 5860 mg / sodium sulfate 14648 mg powder for oral solution (20 sources) [...] HCL CAPS as directed TETRACYCLINE HCL CAPS [id number] Reginaldo Baxter DO Start: 05-25-2013 TETRACYCLINE H CL CAPS as directed TETRACYCLINE HCL CAPS [id number] Jennie Hayes ticagrelor 90 mg oral tablet [...] Coronary atherosclerosis; Translations: [Atherosclerotic heart disease of [place] coronary artery without angina pectoris] Onset: 03-22-2024 [...] 04-05-2016 Unclassified (1 source) Shoulder Pain / [id number]() Onset: 05-02-2017 Unclassified (1 source) Pain in [...] Freeon 01-17-2025 TESTOSTER,FREE 3.44 ng/dL Abnormal 5.00-21.00 [facility] Comment on above: Order Comment: N Performed By: #### L 506.1001, L501.9940, L100.0500, L500.4100, L501.9520, L3100.5310, L500.4050 ####[facility] [address] [place], [place], [id number] TESTOSTER,TOTAL 172 ng/dL Low 264-916 [facility] Comment on above: Order Comment: N Result Comment: Adul t male reference interval is based on a population of healthy nonobese males (BMI <30) between 19 and 39 years old. leighton Moreland.al. JCEM 2017,102;6802-1038. PMID: 36142086. Performed By: #### L 506.1001, L501.9940, L100.0500, L500.4100, L501.9520, L3100.5310, L500.4050 ####[facility] [address] [place], [place], [id number] TESTOSTERONE,%F 2.00 Normal 1.50-4.20 [facility] Comment on above: Order Comment: N Result Comment: Perf ormed at: [address] [id number] Core Piler: Jose Angel Marks PhD, Phone: [phone] Performed at: [facility] [address] [place], [place] [id number] Core Piler: Susan Rojas MD, Phone: [phone] Performed By: #### L 506.1001, L501.9940, L100.0500, L500.4100, L501.9520, L3100.5310, L500.4050 ####[facility] [address] [place], [address] CBC-Complete Blood Cnt No Di ffon 01-10-2025 Erythrocyte distribution width (RBC) [Ratio] 14.7 % High 11.6-14.6 [facility] Comment on above: Performed By: #### L 506.1001, L501.9940, L100.0500, L500.4100, L501.9520, L3100.5310, L500.4050 ####[facility] [address] [place], [address] Hematocrit (Bld) [Volume fraction] 36.6 % Low 40-54 [facility] Comment on above: Performed By: #### L 506.1001, L501.9940, L100.0500, L500.4100, L501.9520, L3100.5310, L500.4050 ####[facility] [address] [place], [address] Hemoglobin (Bld) [Mass/Vol] 12.7 g/dL Low 13.0-16.5 [facility] Comment on above: Performed By: #### L 506.1001, L501.9940, L100.0500, L500.4100, L501.9520, L3100.5310, L500.4050 ####[facility] [address] [place], [address] MCH (RBC) [Entitic mass] 31.0 pg Normal 27.0-32.0 [facility] Comment on above: Performed By: #### L 506.1001, L501.9940, L100.0500, L500.4100, L501.9520, L3100.5310, L500.4050 ####[facility] [address] [place], [address] MCHC (RBC) [Mass/Vol] 34.7 g/dL Normal 32-36 [facility] Comment on above: Performed By: #### L 506.1001, L501.9940, L100.0500, L500.4100, L501.9520, L3100.5310, L500.4050 ####[facility] [address] [place], [address] MCV (RBC) [Entitic vol] 89.3 fL Normal 80-94 [facility] Comment on above: Performed By: #### L 506.1001, L501.9940, L100.0500, L500.4100, L501.9520, L3100.5310, L500.4050 ####[facility] [address] [place], [address] Platelet mean volume (Bld) [Entitic vol] 9.9 fL Normal 6.2-12.0 [facility] Comment on above: Performed By: #### L 506.1001, L501.9940, L100.0500, L500.4100, L501.9520, L3100.5310, L500.4050 ####[facility] [address] [place], [address] Platelets (Bld) [#/Vol] 223 10*3/uL Normal 150-450 [facility] Comment on above: Performed By: #### L 506.1001, L501.9940, L100.0500, L500.4100, L501.9520, L3100.5310, L500.4050 ####[facility] [address] [place], [address] RBC (Bld) [#/Vol] 4.10 10*6/uL Low 4.6-6.2 [facility] Comment on above: Performed By: #### L 506.1001, L501.9940, L100.0500, L500.4100, L501.9520, L3100.5310, L500.4050 ####[facility] [address] [place], [address] RDW SD 47.3 fl High 35.1-43.9 [facility] Comment on above: Performed By: #### L 506.1001, L501.9940, L100.0500, L500.4100, L501.9520, L3100.5310, L500.4050 ####[facility] [address] [place], [address] WBC (Bld) [#/Vol] 4.5 10*3/uL Normal 4.4-11.0 [facility] Comment on above: Performed By: #### L 506.1001, L501.9940, L100.0500, L500.4100, L501.9520, L3100.5310, L500.4050 ####[facility] [address] [place], [address] Comprehensive Metabolic Prof ilon 01-10-2025 Albumin [Mass/Vol] 4.3 g/dL Normal 3.4-4.8 [facility] Comment on above: Performed By: #### L 506.1001, L501.9940, L100.0500, L500.4100, L501.9520, L3100.5310, L500.4050 ####[facility] [address] [place], [address] Albumin/Globulin [Mass ratio] 1.7 {ratio} Normal 0.9-2.4 [facility] Comment on above: Performed By: #### L 506.1001, L501.9940, L100.0500, L500.4100, L501.9520, L3100.5310, L500.4050 ####[facility] [address] [place], [address] ALK PHOS 58 U/L Normal 40-129 [facility] Comment on above: Performed By: #### L 506.1001, L501.9940, L100.0500, L500.4100, L501.9520, L3100.5310, L500.4050 ####[facility] [address] [place], [address] ALT [Catalytic activity/Vol] 29 U/L Normal <=46 [facility] Comment on above: Performed By: #### L 506.1001, L501.9940, L100.0500, L500.4100, L501.9520, L3100.5310, L500.4050 ####[facility] [address] [place], [address] AST [Catalytic activity/Vol] 37 U/L Normal <=37 [facility] Comment on above: Performed By: #### L 506.1001, L501.9940, L100.0500, L500.4100, L501.9520, L3100.5310, L500.4050 ####[facility] [address] [place], [place], [phone] Bilirubin [Mass/Vol] 0.37 mg/dL Normal 0.00-1.30 [facility] Comment on above: Performed By: #### L 506.1001, L501.9940, L100.0500, L500.4100, L501.9520, L3100.5310, L500.4050 ####[facility] [address] [place], [address] BUN/CRE 12.1 RATIO Normal 10-20 [facility] Comment on above: Performed By: #### L 506.1001, L501.9940, L100.0500, L500.4100, L501.9520, L3100.5310, L500.4050 ####[facility] [address] [place], [address] Calcium [Mass/Vol] 9.5 mg/dL Normal 7.6-11.0 [facility] Comment on above: Performed By: #### L 506.1001, L501.9940, L100.0500, L500.4100, L501.9520, L3100.5310, L500.4050 ####[facility] [address] [place], [address] Chloride [Moles/Vol] 103 mmol/L Normal 98-108 [facility] Comment on above: Performed By: #### L 506.1001, L501.9940, L100.0500, L500.4100, L501.9520, L3100.5310, L500.4050 ####[facility] [address] [place], [address] CO2 [Moles/Vol] 27.4 mmol/L Normal 21.0-32.0 [facility] Comment on above: Performed By: #### L 506.1001, L501.9940, L100.0500, L500.4100, L501.9520, L3100.5310, L500.4050 ####[facility] [address] [place], [address] Creatinine [Mass/Vol] 1.12 mg/dL Normal 0.70-1.20 [facility] Comment on above: Performed By: #### L 506.1001, L501.9940, L100.0500, L500.4100, L501.9520, L3100.5310, L500.4050 ####[facility] [address] [place], [address] GAP 10 Normal 5-15 [facility] Comment on above: Performed By: #### L 506.1001, L501.9940, L100.0500, L500.4100, L501.9520, L3100.5310, L500.4050 ####[facility] [address] [place], [address] GFR/1.73 sq M.predicted among non-blacks MDRD (S/P/Bld) [Vol rate/Area] 71 mL/min/{1.73_m2} Normal >60 [facility] Comment on above: Result Comment: mL/m in/1.73m2 CKD-EPI Creatinine Equation (2020) Performed By: #### L 506.1001, L501.9940, L100.0500, L500.4100, L501.9520, L3100.5310, L500.4050 ####[facility] [address] [place], [address] Globulin (S) [Mass/Vol] 2.5 g/dL Normal 2.2-4.2 [facility] Comment on above: Performed By: #### L 506.1001, L501.9940, L100.0500, L500.4100, L501.9520, L3100.5310, L500.4050 ####[facility] [address] [place], [address] Glucose [Mass/Vol] 94 mg/dL Normal 70-99 [facility] Comment on above: Performed By: #### L 506.1001, L501.9940, L100.0500, L500.4100, L501.9520, L3100.5310, L500.4050 ####[facility] [address] [place], [address] Potassium [Moles/Vol] 4.1 mmol/L Normal 3.3-5.1 [facility] Comment on above: Performed By: #### L 506.1001, L501.9940, L100.0500, L500.4100, L501.9520, L3100.5310, L500.4050 ####[facility] [address] [place], [address] Sodium [Moles/Vol] 140 mmol/L Normal 133-145 [facility] Comment on above: Performed By: #### L 506.1001, L501.9940, L100.0500, L500.4100, L501.9520, L3100.5310, L500.4050 ####[facility] [address] [place], [address] T PROT 6.9 g/dL Normal 5.9-8.4 [facility] Comment on above: Performed By: #### L 506.1001, L501.9940, L100.0500, L500.4100, L501.9520, L3100.5310, L500.4050 ####[facility] [address] [place], [address] Urea nitrogen [Mass/Vol] 14 mg/dL Normal 4-19 [facility] Comment on above: Performed By: #### L 506.1001, L501.9940, L100.0500, L500.4100, L501.9520, L3100.5310, L500.4050 ####[facility] [address] [place], [address] Lipid Profileon 01-10-2025 CHOL:HDL 1.91 Normal [facility] Comment on above: Performed By: #### L 506.1001, L501.9940, L100.0500, L500.4100, L501.9520, L3100.5310, L500.4050 ####[facility] [address] [place], [address] Cholesterol [Mass/Vol] 150 mg/dL Normal <=200 [facility] Comment on above: Result Comment: Chol esterol level, Desirable <200 mg/dL Borderline high cholesterol 200-239 mg/dL High cholesterol >=240 mg/dL Recommendations of the NCEP Adult Treatment Panel for the following risk-cutoff thresholds for the [place] population. Performed By: #### L 506.1001, L501.9940, L100.0500, L500.4100, L501.9520, L3100.5310, L500.4050 ####[facility] [address] [place], [address] Cholesterol in HDL [Mass/Vol] 79 mg/dL Normal [facility] Comment on above: Result Comment: Jennifer onal Cholesterol Education Program (NCEP) guidelines: <40 mg/dL: Low HDL-cholesterol (major risk factor for CHD) >= 60 mg/dL: High HDL-cholesterol (negative risk factor for CHD) HDL-cholesterol is affected by a number of factors, e.g. smoking, exercise, hormones, sex and age. Performed By: #### L 506.1001, L501.9940, L100.0500, L500.4100, L501.9520, L3100.5310, L500.4050 ####[facility] [address] [place], [place], [phone]) Cholesterol in LDL [Mass/Vol] 55 mg/dL Normal [facility] Comment on above: Result Comment: Bord omsrgz=201-659 mg/dL Higher Ings=336 mg/dL or greater Ballesteros Equation 2020 for LDL-C Performed By: #### L 506.1001, L501.9940, L100.0500, L500.4100, L501.9520, L3100.5310, L500.4050 ####[facility] [address] [place], [address] Cholesterol in VLDL [Mass/Vol] 18 mg/dL Normal 5-40 [facility] Comment on above: Performed By: #### L 506.1001, L501.9940, L100.0500, L500.4100, L501.9520, L3100.5310, L500.4050 ####[facility] [address] [place], [address] Triglyceride [Mass/Vol] 91 mg/dL Normal [facility] Comment on above: Result Comment: The drugs N-Acetylcysteine and Metamizole may falsely depress this assay. Normal range: <150 mg/dL Borderline High: 150-199 mg/dL High: 200-499 mg/dL Very High: >500 mg/dL Performed By: #### L 506.1001, L501.9940, L100.0500, L500.4100, L501.9520, L3100.5310, L500.4050 ####[facility] [address] [place], [address] PSA,Total- Diagnosticon 12-14 PSA, DIAGNOSTIC 0.44 ng/mL Normal 0.00-4.00 [facility] Comment on above: Result Comment: This test [...] 506.1001, L501.9940, L100.0500, L500.4100, L501.9520, L3100.5310, L500.4050 ####[facility] [address] [place], [address] Thyroid Stim Hormone (TSH)on 01-10-2025 TSH 1.550 uIU/mL Normal 0.300-4.200 [facility] Comment on above: Performed By: #### L 506.1001, L501.9940, L100.0500, L500.4100, L501.9520, L3100.5310, L500.4050 ####[facility] [address] [place], [address] Vitamin D,25 Hydroxyon 01-10 Vitamin D 25-OH 40.8 ng/mL Normal 30-100 [facility] Comment on above: Result Comment: Marisela min D Status Deficiency: <20 ng/mL (50nmol/L) Insufficiency: 20-30 ng/mL (50-75 nmol/L) Sufficiency: 30-100 ng/mL (75-250 nmol/L) Toxicity: >100 ng/mL (>250 nmol/L) Performed By: #### L 506.1001, L501.9940, L100.0500, L500.4100, L501.9520, L3100.5310, L500.4050 ####[facility] [address] [place], [place], [id number] Absolute lymphocyte countOrd ered By: Holly Arzola on 12-04-2024 Lymphocytes Auto (Unsp spec) [#/Vol] 1.15 10*3/uL 0.83-4.51 [facility] Absolute neutrophil countOrd ered By: Holly Arzola on 12-04-2024 Neutrophils (Bld) [#/Vol] 2.5 10*3/uL 2.0-7.7 [facility] Anion gap in Serum or Plasma Ordered By: Holly Arzola on 12-04-2024 Anion gap [Moles/Vol] 14 mmol/L 5-15 [facility] Automated lymphocyte count a s percentage of total leukocytesOrdered By: Holly Arzola on 12-04-2024 Lymphocytes/100 WBC Auto (Unsp spec) 27.6 % 19-41 [facility] BUN/creatinine ratioOrdered By: Holly Arzola on 12-04-2024 Urea nitrogen/Creatinine [Mass ratio] 15.5 mg/mg 10-20 [facility] Basophil percentageOrdered B y: Holly Arzola on 12-04-2024 Basophils/100 WBC (Bld) 0.7 % 0-1 [facility] Bilirubin, totalOrdered By: Holly Arzola on 12-04-2024 Bilirubin [Mass/Vol] 0.36 mg/dL 0.00-1.30 [facility] CBC W/Diff, Automatedon 11-13 Absolute Lymph 1.15 X10 3/uL Normal 0.83-4.51 [facility] Comment on above: Performed By: #### L 100.0100, L500.4050 ####[facility] [address] [place], [address] Absolute Neut 2.5 X10 3/uL Normal 2.0-7.7 [facility] Comment on above: Performed By: #### L 100.0100, L500.4050 ####[facility] [address] [place], [address] Basophils/100 WBC (Bld) 0.7 % Normal 0-1 [facility] Comment on above: Performed By: #### L 100.0100, L500.4050 ####[facility] [address] [place], [address] Eosinophils/100 WBC (Bld) 1.9 % Normal 0-5 [facility] Comment on above: Performed By: #### L 100.0100, L500.4050 ####[facility] [address] [place], [address] Erythrocyte distribution width (RBC) [Ratio] 13.9 % Normal 11.6-14.6 [facility] Comment on above: Performed By: #### L 100.0100, L500.4050 ####[facility] [address] [place], [address] Hematocrit (Bld) [Volume fraction] 32.4 % Low 40-54 [facility] Comment on above: Performed By: #### L 100.0100, L500.4050 ####[facility] [address] [place], [address] Hemoglobin (Bld) [Mass/Vol] 11.1 g/dL Low 13.0-16.5 [facility] Comment on above: Performed By: #### L 100.0100, L500.4050 ####[facility] [address] [place], [address] IG% 0.200 Normal 0.0-0.9 [facility] Comment on above: Result Comment: IG% - Immature Granulocytes (promyelocytes, myelocytes and metamyelocytes) > 1% indicates that a LEFT SHIFT is Present. Performed By: #### L 100.0100, L500.4050 ####[facility] [address] [place], [address] Lymphocytes/100 WBC (Bld) 27.6 % Normal 19-41 [facility] Comment on above: Performed By: #### L 100.0100, L500.4050 ####[facility] [address] [place], [address] MCH (RBC) [Entitic mass] 30.5 pg Normal 27.0-32.0 [facility] Comment on above: Performed By: #### L 100.0100, L500.4050 ####[facility] [address] [place], [address] MCHC (RBC) [Mass/Vol] 34.3 g/dL Normal 32-36 [facility] Comment on above: Performed By: #### L 100.0100, L500.4050 ####[facility] [address] [place], [address] MCV (RBC) [Entitic vol] 89.0 fL Normal 80-94 [facility] Comment on above: Performed By: #### L 100.0100, L500.4050 ####[facility] [address] [place], [address] Monocytes/100 WBC (Bld) 8.4 % Normal 0-10 [facility] Comment on above: Performed By: #### L 100.0100, L500.4050 ####[facility] [address] [place], [address] Neutrophils/100 WBC (Bld) 61.2 % Normal 47-70 [facility] Comment on above: Performed By: #### L 100.0100, L500.4050 ####[facility] [address] [place], [address] Nucleated RBC (Bld) [#/Vol] 0 10*3/uL Normal 0-5 [facility] Comment on above: Performed By: #### L 100.0100, L500.4050 ####[facility] [address] [place], [address] Platelet mean volume (Bld) [Entitic vol] 10.7 fL Normal 6.2-12.0 [facility] Comment on above: Performed By: #### L 100.0100, L500.4050 ####[facility] [address] [place], [address] Platelets (Bld) [#/Vol] 186 10*3/uL Normal 150-450 [facility] Comment on above: Performed By: #### L 100.0100, L500.4050 ####[facility] [address] [place], [address] RBC (Bld) [#/Vol] 3.64 10*6/uL Low 4.6-6.2 [facility] Comment on above: Performed By: #### L 100.0100, L500.4050 ####[facility] [address] [place], [address] RDW SD 44.5 fl High 35.1-43.9 [facility] Comment on above: Performed By: #### L 100.0100, L500.4050 ####[facility] [address] [place], [address] WBC (Bld) [#/Vol] 4.2 10*3/uL Low 4.4-11.0 [facility] Comment on above: Performed By: #### L 100.0100, L500.4050 ####[facility] [address] [place], [address] Carbon dioxide, total [Moles /volume] in Central venous bloodOrdered By: Holly Arzola on 12-04-2024 CO2 [Moles/Vol] 21.4 mmol/L 21.0-32.0 [facility] Chloride assayOrdered By: Bipin Arzola on 12-04-2024 Chloride [Moles/Vol] 101 mmol/L 98-108 [facility] Comprehensive Metabolic Prof ilon 12-04-2024 Albumin [Mass/Vol] 4.1 g/dL Normal 3.4-4.8 [facility] Comment on above: Performed By: #### L 100.0100, L500.4050 ####[facility] [address] [place], [address] Albumin/Globulin [Mass ratio] 1.9 {ratio} Normal 0.9-2.4 [facility] Comment on above: Performed By: #### L 100.0100, L500.4050 ####[facility] [address] [place], [address] ALK PHOS 52 U/L Normal 40-129 [facility] Comment on above: Performed By: #### L 100.0100, L500.4050 ####[facility] [address] [place], [address] ALT [Catalytic activity/Vol] 26 U/L Normal <=46 [facility] Comment on above: Performed By: #### L 100.0100, L500.4050 ####[facility] [address] [place], [address] AST [Catalytic activity/Vol] 34 U/L Normal <=37 [facility] Comment on above: Performed By: #### L 100.0100, L500.4050 ####[facility] [address] [place], [address] Bilirubin [Mass/Vol] 0.36 mg/dL Normal 0.00-1.30 [facility] Comment on above: Performed By: #### L 100.0100, L500.4050 ####[facility] [address] [place], [address] BUN/CRE 15.5 RATIO Normal 10-20 [facility] Comment on above: Performed By: #### L 100.0100, L500.4050 ####[facility] [address] [place], [address] Calcium [Mass/Vol] 9.1 mg/dL Normal 7.6-11.0 [facility] Comment on above: Performed By: #### L 100.0100, L500.4050 ####[facility] [address] [place], [address] Chloride [Moles/Vol] 101 mmol/L Normal 98-108 [facility] Comment on above: Performed By: #### L 100.0100, L500.4050 ####[facility] [address] [place], [address] CO2 [Moles/Vol] 21.4 mmol/L Normal 21.0-32.0 [facility] Comment on above: Performed By: #### L 100.0100, L500.4050 ####[facility] [address] [place], [address] Creatinine [Mass/Vol] 1.09 mg/dL Normal 0.70-1.20 [facility] Comment on above: Performed By: #### L 100.0100, L500.4050 ####[facility] [address] [place], [address] GAP 14 Normal 5-15 [facility] Comment on above: Performed By: #### L 100.0100, L500.4050 ####[facility] [address] [place], [address] GFR/1.73 sq M.predicted among non-blacks MDRD (S/P/Bld) [Vol rate/Area] 73 mL/min/{1.73_m2} Normal >60 [facility] Comment on above: Result Comment: mL/m in/1.73m2 CKD-EPI Creatinine Equation (2020) Performed By: #### L 100.0100, L500.4050 ####[facility] [address] [place], [address] Globulin (S) [Mass/Vol] 2.2 g/dL Normal 2.2-4.2 [facility] Comment on above: Performed By: #### L 100.0100, L500.4050 ####[facility] [address] [place], [address] Glucose [Mass/Vol] 135 mg/dL High 70-99 [facility] Comment on above: Performed By: #### L 100.0100, L500.4050 ####[facility] [address] [place], [address] Potassium [Moles/Vol] 3.9 mmol/L Normal 3.3-5.1 [facility] Comment on above: Performed By: #### L 100.0100, L500.4050 ####[facility] [address] [place], [address] Sodium [Moles/Vol] 137 mmol/L Normal 133-145 [facility] Comment on above: Performed By: #### L 100.0100, L500.4050 ####[facility] [address] [place], [address] T PROT 6.3 g/dL Normal 5.9-8.4 [facility] Comment on above: Performed By: #### L 100.0100, L500.4050 ####[facility] [address] [place], [place], [address] Urea nitrogen [Mass/Vol] 17 mg/dL Normal 4-19 [facility] Comment on above: Performed By: #### L 100.0100, L500.4050 ####[facility] [address] [place], [address] Eosinophil percentageOrdered By: Holly Arzola on 12-04-2024 Eosinophils/100 WBC (Bld) 1.9 % 0-5 [facility] Erythrocyte distribution wid th ratioOrdered By: [facility] Dariusz on 12-04-2024 Erythrocyte distribution width (RBC) [Ratio] 13.9 % 11.6-14.6 [facility] Erythrocyte distribution wid th standard deviationOrdered By: Holly Arzola on 12-04-2024 Erythrocyte distribution width (RBC) [Ratio] 44.5 fl High 35.1-43.9 [facility] Glomerular filtration rate ( GFR) estimation/1.73 sq m using serum, plasma, or whole bOrdered By: Holly Arzola on 12-04-2024 GFR/1.73 sq M.predicted among non-blacks MDRD (S/P/Bld) [Vol rate/Area] 73 mL/min/{1.73_m2} >60 [facility] Comment on above: mL/min/1.73m2 CKD-EP I Creatinine Equation (2020) Hematocrit Auto (Bld) [Volum e fraction]Ordered By: Holly Arzola on 12-04-2024 Hematocrit (Bld) [Volume fraction] 32.4 % Low 40-54 [facility] Hemoglobin measurementOrdere d By: Holly Arzola on 12-04-2024 Hemoglobin (Bld) [Mass/Vol] 11.1 g/dL Low 13.0-16.5 [facility] Immature granulocytes/100 WB C Auto (Bld)Ordered By: Holly Arzola on 12-04-2024 Immature granulocytes/100 WBC (Bld) 0.200 % 0.0-0.9 [facility] Comment on above: IG% - Immature Granu locytes (promyelocytes, myelocytes and metamyelocytes) > 1% indicates that a LEFT SHIFT is Present. Laboratory - Chemistry and C hemistry - challengeOrdered By: Holly Arzola on 12-04-2024 AST [Catalytic activity/Vol] 34 U/L <38 [facility] MCV (mean corpuscular volume ) determinationOrdered By: Holly Arzola on 12-04-2024 MCV (RBC) [Entitic vol] 89.0 fL 80-94 [facility] Mean corpuscular hemoglobin (MCH) determinationOrdered By: Holly Arzola on 12-04-2024 MCH (RBC) [Entitic mass] 30.5 pg 27.0-32.0 [facility] Mean corpuscular hemoglobin concentration (MCHC) determinationOrdered By: Holly Arzola on 12-04-2024 MCHC (RBC) [Mass/Vol] 34.3 g/dL 32-36 [facility] Mean platelet volume determi nationOrdered By: Holly Arzola on 12-04-2024 Platelet mean volume (Bld) [Entitic vol] 10.7 fL 6.2-12.0 [facility] Monocyte percentageOrdered B y: Holly Arzola on 12-04-2024 Monocytes/100 WBC (Bld) 8.4 % 0-10 [facility] Neutrophil percentageOrdered By: Holly Arzola on 12-04-2024 Neutrophils/100 WBC (Bld) 61.2 % 47-70 [facility] Nucleated red blood cell per centageOrdered By: Holly Arzola on 12-04-2024 Nucleated RBC/100 WBC (Bld) [Ratio] 0 % 0-5 [facility] Platelet countOrdered By: Bipin Arzola on 12-04-2024 Platelets (Bld) [#/Vol] 186 10*3/uL 150-450 [facility] Potassium measurement (mass/ volume)Ordered By: Holly Arzola on 12-04-2024 Potassium (Unsp spec) [Mass/Vol] 3.9 mmol/L 3.3-5.1 [facility] RBC Auto (Bld) [#/Vol]Ordere d By: Holly Arzola on 12-04-2024 RBC (Bld) [#/Vol] 3.64 10*6/uL Low 4.6-6.2 [facility] Serum creatinine measurement (mass/volume)Ordered By: Holly Arzola on 12-04-2024 Creatinine [Mass/Vol] 1.09 mg/dL 0.70-1.20 [facility] Serum globulin measurementOr dered By: Holly Arzola on 12-04-2024 Globulin (S) [Mass/Vol] 2.2 g/dL 2.2-4.2 [facility] Serum glucose measurement (m ass/volume)Ordered By: Holly Arzola on 12-04-2024 Glucose [Mass/Vol] 135 mg/dL High 70-99 [facility] Serum or plasma alanine cowan otransferase (ALT) measurementOrdered By: Holly Arzola on 12-04-2024 ALT [Catalytic activity/Vol] 26 U/L <47 [facility] Serum or plasma albumin ioana urement (mass/volume)Ordered By: Holly Arzola on 12-04-2024 Albumin [Mass/Vol] 4.1 g/dL 3.4-4.8 [facility] Serum or plasma albumin/glob ulin mass ratioOrdered By: Holly Arzola on 12-04-2024 Albumin/Globulin [Mass ratio] 1.9 {ratio} 0.9-2.4 [facility] Serum or plasma alkaline abdirizak sphatase measurementOrdered By: Holly Arzola on 12-04-2024 ALP [Catalytic activity/Vol] 52 U/L 40-129 [facility] Serum or plasma calcium ioana urement (mass/volume)Ordered By: Holly Arzola on 12-04-2024 Calcium [Mass/Vol] 9.1 mg/dL 7.6-11.0 [facility] Serum or plasma urea nitroge n measurement (mass/volume)Ordered By: Holly Arzola on 12-04-2024 Urea nitrogen [Mass/Vol] 17 mg/dL 4-19 [facility] Sodium levelOrdered By: Riki Arzola on 12-04-2024 Sodium [Moles/Vol] 137 mmol/L 133-145 [facility] Total proteinOrdered By: Gillian Arzola on 12-04-2024 Protein [Mass/Vol] 6.3 g/dL 5.9-8.4 [facility] White blood cell (WBC) count Ordered By: Holly Arzola on 12-04-2024 WBC (Bld) [#/Vol] 4.2 10*3/uL Low 4.4-11.0 [facility] Absolute lymphocyte countOrd ered By: [facility] Dariusz on 10-08-2024 Lymphocytes Auto (Unsp spec) [#/Vol] 1.10 10*3/uL 0.83-4.51 [facility] Absolute neutrophil countOrd ered By: [facility] Dariusz on 10-08-2024 Neutrophils (Bld) [#/Vol] 2.2 10*3/uL 2.0-7.7 [facility] Anion gap in Serum or Plasma Ordered By: Hollyjose Arzola on 10-08-2024 Anion gap [Moles/Vol] 10 mmol/L 5-15 [facility] Automated lymphocyte count a s percentage of total leukocytesOrdered By: Hollyjose Arzola on 10-08-2024 Lymphocytes/100 WBC Auto (Unsp spec) 28.2 % 19-41 [facility] BUN/creatinine ratioOrdered By: [facility] Dariusz on 10-08-2024 Urea nitrogen/Creatinine [Mass ratio] 11.3 mg/mg 10-20 [facility] Basophil percentageOrdered B y: Holly Arzola on 10-08-2024 Basophils/100 WBC (Bld) 1.3 % High 0-1 [facility] Bilirubin, totalOrdered By: Hollyjose Arzola on 10-08-2024 Bilirubin [Mass/Vol] 0.26 mg/dL 0.00-1.30 [facility] CBC W/Diff, Automatedon 09-12 Absolute Lymph 1.10 X10 3/uL Normal 0.83-4.51 [facility] Comment on above: Performed By: #### L 500.4050, L100.0100 ####[facility] [address] [place], [place], [id number] Absolute Neut 2.2 X10 3/uL Normal 2.0-7.7 [facility] Comment on above: Performed By: #### L 500.4050, L100.0100 ####[facility] [address] [place], [address] Basophils/100 WBC (Bld) 1.3 % High 0-1 [facility] Comment on above: Performed By: #### L 500.4050, L100.0100 ####[facility] [address] [place], [address] Eosinophils/100 WBC (Bld) 4.9 % Normal 0-5 [facility] Comment on above: Performed By: #### L 500.4050, L100.0100 ####[facility] [address] [place], [address] Erythrocyte distribution width (RBC) [Ratio] 13.6 % Normal 11.6-14.6 [facility] Comment on above: Performed By: #### L 500.4050, L100.0100 ####[facility] [address] [place], [address] Hematocrit (Bld) [Volume fraction] 36.4 % Low 40-54 [facility] Comment on above: Performed By: #### L 500.4050, L100.0100 ####[facility] [address] [place], [address] Hemoglobin (Bld) [Mass/Vol] 12.2 g/dL Low 13.0-16.5 [facility] Comment on above: Performed By: #### L 500.4050, L100.0100 ####[facility] [address] [place], [address] IG% 0.300 Normal 0.0-0.9 [facility] Comment on above: Result Comment: IG% - Immature Granulocytes (promyelocytes, myelocytes and metamyelocytes) > 1% indicates that a LEFT SHIFT is Present. Performed By: #### L 500.4050, L100.0100 ####[facility] [address] [place], [address] Lymphocytes/100 WBC (Bld) 28.2 % Normal 19-41 [facility] Comment on above: Performed By: #### L 500.4050, L100.0100 ####[facility] [address] [place], [address] MCH (RBC) [Entitic mass] 30.3 pg Normal 27.0-32.0 [facility] Comment on above: Performed By: #### L 500.4050, L100.0100 ####[facility] [address] [place], [address] MCHC (RBC) [Mass/Vol] 33.5 g/dL Normal 32-36 [facility] Comment on above: Performed By: #### L 500.4050, L100.0100 ####[facility] [address] [place], [address] MCV (RBC) [Entitic vol] 90.5 fL Normal 80-94 [facility] Comment on above: Performed By: #### L 500.4050, L100.0100 ####[facility] [address] [place], [address] Monocytes/100 WBC (Bld) 8.5 % Normal 0-10 [facility] Comment on above: Performed By: #### L 500.4050, L100.0100 ####[facility] [address] [place], [address] Neutrophils/100 WBC (Bld) 56.8 % Normal 47-70 [facility] Comment on above: Performed By: #### L 500.4050, L100.0100 ####[facility] [address] [place], [address] Nucleated RBC (Bld) [#/Vol] 0 10*3/uL Normal 0-5 [facility] Comment on above: Performed By: #### L 500.4050, L100.0100 ####[facility] [address] [place], [address] Platelet mean volume (Bld) [Entitic vol] 10.2 fL Normal 6.2-12.0 [facility] Comment on above: Performed By: #### L 500.4050, L100.0100 ####[facility] [address] [place], [address] Platelets (Bld) [#/Vol] 200 10*3/uL Normal 150-450 [facility] Comment on above: Performed By: #### L 500.4050, L100.0100 ####[facility] [address] [place], [address] RBC (Bld) [#/Vol] 4.02 10*6/uL Low 4.6-6.2 [facility] Comment on above: Performed By: #### L 500.4050, L100.0100 ####[facility] [address] [place], [address] RDW SD 45.2 fl High 35.1-43.9 [facility] Comment on above: Performed By: #### L 500.4050, L100.0100 ####[facility] [address] [place], [address] WBC (Bld) [#/Vol] 3.9 10*3/uL Low 4.4-11.0 [facility] Comment on above: Performed By: #### L 500.4050, L100.0100 ####[facility] [address] [place], [address] Carbon dioxide, total [Moles /volume] in Central venous bloodOrdered By: Holly Arzola on 10-08-2024 CO2 [Moles/Vol] 25.3 mmol/L 21.0-32.0 [facility] Chloride assayOrdered By: Bipin Arzola on 10-08-2024 Chloride [Moles/Vol] 105 mmol/L 98-108 [facility] Comprehensive Metabolic Prof ilon 10-08-2024 ALK PHOS 65 U/L Normal 40-129 [facility] Comment on above: Performed By: #### L 500.4050, L100.0100 ####[facility] [address] [place], [address] ALT [Catalytic activity/Vol] 30 U/L Normal <=46 [facility] Comment on above: Performed By: #### L 500.4050, L100.0100 ####[facility] [address] [place], [address] AST [Catalytic activity/Vol] 39 U/L High <=37 [facility] Comment on above: Performed By: #### L 500.4050, L100.0100 ####[facility] [address] [place], [address] Bilirubin [Mass/Vol] 0.26 mg/dL Normal 0.00-1.30 [facility] Comment on above: Performed By: #### L 500.4050, L100.0100 ####[facility] [address] [place], [address] Calcium [Mass/Vol] 9.2 mg/dL Normal 7.6-11.0 [facility] Comment on above: Performed By: #### L 500.4050, L100.0100 ####[facility] [address] [place], [address] Chloride [Moles/Vol] 105 mmol/L Normal 98-108 [facility] Comment on above: Performed By: #### L 500.4050, L100.0100 ####[facility] [address] [place], [address] CO2 [Moles/Vol] 25.3 mmol/L Normal 21.0-32.0 [facility] Comment on above: Performed By: #### L 500.4050, L100.0100 ####[facility] [address] [place], [address] GAP 10 Normal 5-15 [facility] Comment on above: Performed By: #### L 500.4050, L100.0100 ####[facility] [address] [place], [address] Potassium [Moles/Vol] 4.0 mmol/L Normal 3.3-5.1 [facility] Comment on above: Performed By: #### L 500.4050, L100.0100 ####[facility] [address] [place], [address] Sodium [Moles/Vol] 141 mmol/L Normal 133-145 [facility] Comment on above: Performed By: #### L 500.4050, L100.0100 ####[facility] [address] [place], [address] Albumin [Mass/Vol] 4.0 g/dL Normal 3.4-4.8 [facility] Comment on above: Performed By: #### L 500.4050, L100.0100 ####[facility] [address] [place], [address] Albumin/Globulin [Mass ratio] 1.7 {ratio} Normal 0.9-2.4 [facility] Comment on above: Performed By: #### L 500.4050, L100.0100 ####[facility] [address] [place], [address] BUN/CRE 11.3 RATIO Normal 10-20 [facility] Comment on above: Performed By: #### L 500.4050, L100.0100 ####[facility] [address] [place], [address] Creatinine [Mass/Vol] 1.05 mg/dL Normal 0.70-1.20 [facility] Comment on above: Performed By: #### L 500.4050, L100.0100 ####[facility] [address] [place], [address] GFR/1.73 sq M.predicted among non-blacks MDRD (S/P/Bld) [Vol rate/Area] 76 mL/min/{1.73_m2} Normal >60 [facility] Comment on above: Result Comment: mL/m in/1.73m2 CKD-EPI Creatinine Equation (2020) Performed By: #### L 500.4050, L100.0100 ####[facility] [address] [place], [address] Globulin (S) [Mass/Vol] 2.4 g/dL Normal 2.2-4.2 [facility] Comment on above: Performed By: #### L 500.4050, L100.0100 ####[facility] [address] [place], [address] Glucose [Mass/Vol] 114 mg/dL High 70-99 [facility] Comment on above: Performed By: #### L 500.4050, L100.0100 ####[facility] [address] [place], [address] T PROT 6.4 g/dL Normal 5.9-8.4 [facility] Comment on above: Performed By: #### L 500.4050, L100.0100 ####[facility] [address] [place], [address] Urea nitrogen [Mass/Vol] 12 mg/dL Normal 4-19 [facility] Comment on above: Performed By: #### L 500.4050, L100.0100 ####[facility] [address] [place], [address] Eosinophil percentageOrdered By: Holly Arzola on 10-08-2024 Eosinophils/100 WBC (Bld) 4.9 % 0-5 [facility] Erythrocyte distribution wid th ratioOrdered By: Holly Arzola on 10-08-2024 Erythrocyte distribution width (RBC) [Ratio] 13.6 % 11.6-14.6 [facility] Erythrocyte distribution wid th standard deviationOrdered By: Holly Arzola on 10-08-2024 Erythrocyte distribution width (RBC) [Ratio] 45.2 fl High 35.1-43.9 [facility] Glomerular filtration rate ( GFR) estimation/1.73 sq m using serum, plasma, or whole bOrdered By: Hollyjose Arzola on 10-08-2024 GFR/1.73 sq M.predicted among non-blacks MDRD (S/P/Bld) [Vol rate/Area] 76 mL/min/{1.73_m2} >60 [facility] Comment on above: mL/min/1.73m2 CKD-EP I Creatinine Equation (2020) Hematocrit Auto (Bld) [Volum e fraction]Ordered By: Holly Arzola on 10-08-2024 Hematocrit (Bld) [Volume fraction] 36.4 % Low 40-54 [facility] Hemoglobin measurementOrdere d By: Holly Arzola on 10-08-2024 Hemoglobin (Bld) [Mass/Vol] 12.2 g/dL Low 13.0-16.5 [facility] Immature granulocytes/100 WB C Auto (Bld)Ordered By: Holly Arzola on 10-08-2024 Immature granulocytes/100 WBC (Bld) 0.300 % 0.0-0.9 [facility] Comment on above: IG% - Immature Granu locytes (promyelocytes, myelocytes and metamyelocytes) > 1% indicates that a LEFT SHIFT is Present. Laboratory - Chemistry and C hemistry - challengeOrdered By: Holly Arzola on 10-08-2024 AST [Catalytic activity/Vol] 39 U/L High <38 [facility] MCV (mean corpuscular volume ) determinationOrdered By: Holly Arzola on 10-08-2024 MCV (RBC) [Entitic vol] 90.5 fL 80-94 [facility] Mean corpuscular hemoglobin (MCH) determinationOrdered By: Holly Arzola on 10-08-2024 MCH (RBC) [Entitic mass] 30.3 pg 27.0-32.0 [facility] Mean corpuscular hemoglobin concentration (MCHC) determinationOrdered By: Holly Arzola on 10-08-2024 MCHC (RBC) [Mass/Vol] 33.5 g/dL 32-36 [facility] Mean platelet volume determi nationOrdered By: Holly Arzola on 10-08-2024 Platelet mean volume (Bld) [Entitic vol] 10.2 fL 6.2-12.0 [facility] Monocyte percentageOrdered B y: Holly Arzola on 10-08-2024 Monocytes/100 WBC (Bld) 8.5 % 0-10 [facility] Neutrophil percentageOrdered By: Holly Arzola on 10-08-2024 Neutrophils/100 WBC (Bld) 56.8 % 47-70 [facility] Nucleated red blood cell per centageOrdered By: Holly Arzola on 10-08-2024 Nucleated RBC/100 WBC (Bld) [Ratio] 0 % 0-5 [facility] Platelet countOrdered By: Bipin Arzola on 10-08-2024 Platelets (Bld) [#/Vol] 200 10*3/uL 150-450 [facility] Potassium measurement (mass/ volume)Ordered By: Holly Arzola on 10-08-2024 Potassium (Unsp spec) [Mass/Vol] 4.0 mmol/L 3.3-5.1 [facility] RBC Auto (Bld) [#/Vol]Ordere d By: Holly Arzola on 10-08-2024 RBC (Bld) [#/Vol] 4.02 10*6/uL Low 4.6-6.2 [facility] Serum creatinine measurement (mass/volume)Ordered By: Holly Arzola on 10-08-2024 Creatinine [Mass/Vol] 1.05 mg/dL 0.70-1.20 [facility] Serum globulin measurementOr dered By: Holly Arzola on 10-08-2024 Globulin (S) [Mass/Vol] 2.4 g/dL 2.2-4.2 [facility] Serum glucose measurement (m ass/volume)Ordered By: Holly Arzola on 10-08-2024 Glucose [Mass/Vol] 114 mg/dL High 70-99 [facility] Serum or plasma alanine cowan otransferase (ALT) measurementOrdered By: Holly Arzola on 10-08-2024 ALT [Catalytic activity/Vol] 30 U/L <47 [facility] Serum or plasma albumin ioana urement (mass/volume)Ordered By: Holly Arzola on 10-08-2024 Albumin [Mass/Vol] 4.0 g/dL 3.4-4.8 [facility] Serum or plasma albumin/glob ulin mass ratioOrdered By: Holly Arzola on 10-08-2024 Albumin/Globulin [Mass ratio] 1.7 {ratio} 0.9-2.4 [facility] Serum or plasma alkaline abdirizak sphatase measurementOrdered By: Holly Arzola on 10-08-2024 ALP [Catalytic activity/Vol] 65 U/L 40-129 [facility] Serum or plasma calcium ioana urement (mass/volume)Ordered By: Holly Arzola on 10-08-2024 Calcium [Mass/Vol] 9.2 mg/dL 7.6-11.0 [facility] Serum or plasma urea nitroge n measurement (mass/volume)Ordered By: Holly Arzola on 10-08-2024 Urea nitrogen [Mass/Vol] 12 mg/dL 4-19 [facility] Sodium levelOrdered By: Riki Arzola on 10-08-2024 Sodium [Moles/Vol] 141 mmol/L 133-145 [facility] Total proteinOrdered By: Gillian Arzola on 10-08-2024 Protein [Mass/Vol] 6.4 g/dL 5.9-8.4 [facility] White blood cell (WBC) count Ordered By: Holly Arzola on 10-08-2024 WBC (Bld) [#/Vol] 3.9 10*3/uL Low 4.4-11.0 [facility] PT D/C Summary (1)on 025 PT D/C Summary (1) [facility] Physical Therapy [facility] [address] [place] [address] / REHABILITATION SERVICES DISCHARGE SUMMARY MR#: [id number] Acct: [id number] Name: VAUGHN DINERO Rep #: [id number] : 1955 69 From: Cam Santillan PT, [...] please feel free to call me at [phone]. Thank you for the referral of this patient. Sincerely, Cam Santillan, PT, ATC Balance/Gait/Functiona l tests Balance/Special Test Scores Functional Gait Assessment Score: 30 % Disability: 0 Lower Extremity Functional Score: 80 Improvement % Improvement: 75 09/28/24 0731 CC: Dr. Reginaldo Blank DO; Dr. True Ibarra DO [facility] Signed Normal [facility] Inital Evaluation (1) - PTon 08-17-2024 Inital Evaluation (1) - PT [facility] [address] [place] [address] / REHABILITATION SERVICES INITIAL EVALUATION MR#: [id number] Acct: [id number] Name: VAUGHN DINERO Rep #: [id number] : 1955 69 From: Cam Santillan PT, [...] to be FAXED BACK to us at [phone] for Medicare purposes. For Medicare only, by signing this I certify the plan of care. Please let me know if there are questions or concerns regarding this plan of care. Physician Signature: Date:__ 08/17/24 0721 CC: Dr. Reginaldo Blank DO; Dr. True Ibarra DO [facility] Signed Normal [facility] Re-Evaluation - PT (1)on Re-Evaluation - PT (1) [facility] [address] [place] [address] [address] [place] [address] / REEVALUATION / MEDICARE RECERTIFICATION PHYSICAL THERAPY MR#: [id number] Acct: [id number] Name: VAUGHN DINERO Rep #: [id number] : 1955 69 From: Cam Santillan PT, [...] do not hesitate to contact me at [phone] by phone or if you have questions or concerns regarding this new plan of care! Sincerely, Cam Santillan, PT, ATC 08/17/24 0735 CC: Dr. Reginaldo Blank DO; Dr. True Ibarra DO [facility] Signed For Medicare only, by signing this I certify the plan of care. Physicians Signature Date Normal [facility] PSA T AND F w/ Serial Monito cynthia 08-08-2024 PSA, TOTAL ULTR Normal [facility] Comment on above: Result Comment: TEST RESULTS LIMITS PSA Total+% Free (Serial) Prostate Specific Ag 0.5 ng/mL 0.0-4.0 Delores ECLIA methodology. According to the [place] [employer], Serum PSA should decrease and [...] other population of men TESTING PERFORMED AT [facility]. ORIGINAL REPORT ON FILE IN LAB CONTAINS ADDITIONAL TEST SITE INFORMATION. Performed By: #### L 500.4050, L300.3900, L100.0100, L300.4310, L3130.0010, L504.2610, L300.4700, L3100.3425 #### [facility] [address] [place], [address] Testosterone, Total / Freeon 08-08-2024 TESTOSTER,TOTAL Normal [facility] Comment on above: Order Comment: N Result Comment: TEST RESULTS LIMITS Testosterone, Free/Tot Equilib Testosterone 624 ng/dL 264-916 Adult male reference interval is based on a population of healthy nonobese males (BMI <30) between 19 and 39 years old. Aniceto et.al. JCEM 2017,102;4426-2674. PMID: 16425114. Testosterone,Free 20.84 ng/dL 5.00-21.00 % Free Testosterone 3.34 % 1.50-4.20 TESTING PERFORMED AT [facility]. ORIGINAL REPORT ON FILE IN LAB CONTAINS ADDITIONAL TEST SITE INFORMATION. Performed By: #### L 500.4050, L300.3900, L100.0100, L300.4310, L3130.0010, L504.2610, L300.4700, L3100.3425 #### [facility] [address] [place], [address] Absolute lymphocyte countOrd ered By: Reginaldo Aric on 07-19-2024 Lymphocytes Auto (Unsp spec) [#/Vol] 1.09 10*3/uL 0.83-4.51 [facility] Absolute neutrophil countOrd ered By: [facility] on 07-19-2024 Neutrophils (Bld) [#/Vol] 2.5 10*3/uL 2.0-7.7 [facility] Anion gap in Serum or Plasma Ordered By: Reginaldo Nava on 07-19-2024 Anion gap [Moles/Vol] 11 mmol/L 5-15 [facility] Automated lymphocyte count a s percentage of total leukocytesOrdered By: Reginaldo Aric on 07-19-2024 Lymphocytes/100 WBC Auto (Unsp spec) 27.0 % 19-41 [facility] BUN/creatinine ratioOrdered By: [facility] on 07-19-2024 Urea nitrogen/Creatinine [Mass ratio] 11.4 mg/mg 10-20 [facility] Basophil percentageOrdered B y: Reginaldo Nava on 07-19-2024 Basophils/100 WBC (Bld) 0.5 % 0-1 [facility] Bilirubin, totalOrdered By: Reginaldo Nava on 07-19-2024 Bilirubin [Mass/Vol] 0.34 mg/dL 0.00-1.30 [facility] CBC W/Diff, Automatedon Absolute Lymph 1.09 X10 3/uL Normal 0.83-4.51 [facility] Comment on above: Performed By: #### L 100.0100, L500.4050 ####[facility] [address] [place], [address] Absolute Neut 2.5 X10 3/uL Normal 2.0-7.7 [facility] Comment on above: Performed By: #### L 100.0100, L500.4050 ####[facility] [address] [place], [address] Basophils/100 WBC (Bld) 0.5 % Normal 0-1 [facility] Comment on above: Performed By: #### L 100.0100, L500.4050 ####[facility] [address] [place], [address] Eosinophils/100 WBC (Bld) 2.2 % Normal 0-5 [facility] Comment on above: Performed By: #### L 100.0100, L500.4050 ####[facility] [address] [place], [address] Erythrocyte distribution width (RBC) [Ratio] 13.7 % Normal 11.6-14.6 [facility] Comment on above: Performed By: #### L 100.0100, L500.4050 ####[facility] [address] [place], [address] Hematocrit (Bld) [Volume fraction] 33.2 % Low 40-54 [facility] Comment on above: Performed By: #### L 100.0100, L500.4050 ####[facility] [address] [place], [address] Hemoglobin (Bld) [Mass/Vol] 11.6 g/dL Low 13.0-16.5 [facility] Comment on above: Performed By: #### L 100.0100, L500.4050 ####[facility] [address] [place], [address] IG% 0.200 Normal 0.0-0.9 [facility] Comment on above: Result Comment: IG% - Immature Granulocytes (promyelocytes, myelocytes and metamyelocytes) > 1% indicates that a LEFT SHIFT is Present. Performed By: #### L 100.0100, L500.4050 ####[facility] [address] [place], [address] Lymphocytes/100 WBC (Bld) 27.0 % Normal 19-41 [facility] Comment on above: Performed By: #### L 100.0100, L500.4050 ####[facility] [address] [place], [address] MCH (RBC) [Entitic mass] 31.0 pg Normal 27.0-32.0 [facility] Comment on above: Performed By: #### L 100.0100, L500.4050 ####[facility] [address] [place], [address] MCHC (RBC) [Mass/Vol] 34.9 g/dL Normal 32-36 [facility] Comment on above: Performed By: #### L 100.0100, L500.4050 ####[facility] [address] [place], [address] MCV (RBC) [Entitic vol] 88.8 fL Normal 80-94 [facility] Comment on above: Performed By: #### L 100.0100, L500.4050 ####[facility] [address] [place], [address] Monocytes/100 WBC (Bld) 8.9 % Normal 0-10 [facility] Comment on above: Performed By: #### L 100.0100, L500.4050 ####[facility] [address] [place], [address] Neutrophils/100 WBC (Bld) 61.2 % Normal 47-70 [facility] Comment on above: Performed By: #### L 100.0100, L500.4050 ####[facility] [address] [place], [address] Nucleated RBC (Bld) [#/Vol] 0 10*3/uL Normal 0-5 [facility] Comment on above: Performed By: #### L 100.0100, L500.4050 ####[facility] [address] [place], [address] Platelet mean volume (Bld) [Entitic vol] 9.4 fL Normal 6.2-12.0 [facility] Comment on above: Performed By: #### L 100.0100, L500.4050 ####[facility] [address] [place], [address] Platelets (Bld) [#/Vol] 185 10*3/uL Normal 150-450 [facility] Comment on above: Performed By: #### L 100.0100, L500.4050 ####[facility] [address] [place], [address] RBC (Bld) [#/Vol] 3.74 10*6/uL Low 4.6-6.2 [facility] Comment on above: Performed By: #### L 100.0100, L500.4050 ####[facility] [address] [place], [address] RDW SD 44.5 fl High 35.1-43.9 [facility] Comment on above: Performed By: #### L 100.0100, L500.4050 ####[facility] [address] [place], [address] WBC (Bld) [#/Vol] 4.0 10*3/uL Low 4.4-11.0 [facility] Comment on above: Performed By: #### L 100.0100, L500.4050 ####[facility] [address] [place], [address] Carbon dioxide, total [Moles /volume] in Central venous bloodOrdered By: Reginaldo Nava on 07-19-2024 CO2 [Moles/Vol] 24.4 mmol/L 21.0-32.0 [facility] Chloride assayOrdered By: Linnea Nava on 07-19-2024 Chloride [Moles/Vol] 103 mmol/L 98-108 [facility] Comprehensive Metabolic Prof ilon 07-19-2024 Albumin [Mass/Vol] 4.1 g/dL Normal 3.4-4.8 [facility] Comment on above: Performed By: #### L 100.0100, L500.4050 ####[facility] [address] [place], [address] Albumin/Globulin [Mass ratio] 1.8 {ratio} Normal 0.9-2.4 [facility] Comment on above: Performed By: #### L 100.0100, L500.4050 ####[facility] [address] [place], [address] ALK PHOS 61 U/L Normal 40-129 [facility] Comment on above: Performed By: #### L 100.0100, L500.4050 ####[facility] [address] [place], [address] ALT [Catalytic activity/Vol] 29 U/L Normal <=46 [facility] Comment on above: Performed By: #### L 100.0100, L500.4050 ####[facility] [address] [place], [address] AST [Catalytic activity/Vol] 43 U/L High <=37 [facility] Comment on above: Performed By: #### L 100.0100, L500.4050 ####[facility] [address] [place], [address] Bilirubin [Mass/Vol] 0.34 mg/dL Normal 0.00-1.30 [facility] Comment on above: Performed By: #### L 100.0100, L500.4050 ####[facility] [address] [place], [address] BUN/CRE 11.4 RATIO Normal 10-20 [facility] Comment on above: Performed By: #### L 100.0100, L500.4050 ####[facility] [address] [place], [address] Calcium [Mass/Vol] 9.3 mg/dL Normal 7.6-11.0 [facility] Comment on above: Performed By: #### L 100.0100, L500.4050 ####[facility] [address] [place], [address] Chloride [Moles/Vol] 103 mmol/L Normal 98-108 [facility] Comment on above: Performed By: #### L 100.0100, L500.4050 ####[facility] [address] [place], [address] CO2 [Moles/Vol] 24.4 mmol/L Normal 21.0-32.0 [facility] Comment on above: Performed By: #### L 100.0100, L500.4050 ####[facility] [address] [place], [address] Creatinine [Mass/Vol] 1.26 mg/dL High 0.70-1.20 [facility] Comment on above: Performed By: #### L 100.0100, L500.4050 ####[facility] [address] [place], [address] ECRCL 49.23 ml/min Low 50-250 [facility] Comment on above: Performed By: #### L 100.0100, L500.4050 ####[facility] [address] [place], [address] GAP 11 Normal 5-15 [facility] Comment on above: Performed By: #### L 100.0100, L500.4050 ####[facility] [address] [place], [address] GFR/1.73 sq M.predicted among non-blacks MDRD (S/P/Bld) [Vol rate/Area] 61 mL/min/{1.73_m2} Normal >60 [facility] Comment on above: Result Comment: mL/m in/1.73m2 CKD-EPI Creatinine Equation (2020) Performed By: #### L 100.0100, L500.4050 ####[facility] [address] [place], [address] Globulin (S) [Mass/Vol] 2.2 g/dL Normal 2.2-4.2 [facility] Comment on above: Performed By: #### L 100.0100, L500.4050 ####[facility] [address] [place], [address] Glucose [Mass/Vol] 156 mg/dL High 70-99 [facility] Comment on above: Performed By: #### L 100.0100, L500.4050 ####[facility] [address] [place], [address] Potassium [Moles/Vol] 3.9 mmol/L Normal 3.3-5.1 [facility] Comment on above: Performed By: #### L 100.0100, L500.4050 ####[facility] [address] [place], [address] Sodium [Moles/Vol] 138 mmol/L Normal 133-145 [facility] Comment on above: Performed By: #### L 100.0100, L500.4050 ####[facility] [address] [place], [address] T PROT 6.3 g/dL Normal 5.9-8.4 [facility] Comment on above: Performed By: #### L 100.0100, L500.4050 ####[facility] [address] [place], [address] Urea nitrogen [Mass/Vol] 14 mg/dL Normal 4-19 [facility] Comment on above: Performed By: #### L 100.0100, L500.4050 ####[facility] [address] [place], [address] Eosinophil percentageOrdered By: Reginaldo Nava on 07-19-2024 Eosinophils/100 WBC (Bld) 2.2 % 0-5 [facility] Erythrocyte distribution wid th ratioOrdered By: Reginaldo Nava on 07-19-2024 Erythrocyte distribution width (RBC) [Ratio] 13.7 % 11.6-14.6 [facility] Erythrocyte distribution wid th standard deviationOrdered By: Reginaldo Nava on 07-19-2024 Erythrocyte distribution width (RBC) [Ratio] 44.5 fl High 35.1-43.9 [facility] Glomerular filtration rate ( GFR) estimation/1.73 sq m using serum, plasma, or whole bOrdered By: Reginaldo Nava on 07-19-2024 GFR/1.73 sq M.predicted among non-blacks MDRD (S/P/Bld) [Vol rate/Area] 61 mL/min/{1.73_m2} >60 [facility] Comment on above: mL/min/1.73m2 CKD-EP I Creatinine Equation (2020) Hematocrit Auto (Bld) [Volum e fraction]Ordered By: Reginaldo Nava on 07-19-2024 Hematocrit (Bld) [Volume fraction] 33.2 % Low 40-54 [facility] Hemoglobin measurementOrdere d By: Reginaldo Nava on 07-19-2024 Hemoglobin (Bld) [Mass/Vol] 11.6 g/dL Low 13.0-16.5 [facility] Immature granulocytes/100 WB C Auto (Bld)Ordered By: Reginaldo Nava on 07-19-2024 Immature granulocytes/100 WBC (Bld) 0.200 % 0.0-0.9 [facility] Comment on above: IG% - Immature Granu locytes (promyelocytes, myelocytes and metamyelocytes) > 1% indicates that a LEFT SHIFT is Present. Laboratory - Chemistry and C hemistry - challengeOrdered By: Reginaldo Nava on 07-19-2024 AST [Catalytic activity/Vol] 43 U/L High <38 [facility] MCV (mean corpuscular volume ) determinationOrdered By: Reginaldo Nava on 07-19-2024 MCV (RBC) [Entitic vol] 88.8 fL 80-94 [facility] Mean corpuscular hemoglobin (MCH) determinationOrdered By: Reginaldo Nava on 07-19-2024 MCH (RBC) [Entitic mass] 31.0 pg 27.0-32.0 [facility] Mean corpuscular hemoglobin concentration (MCHC) determinationOrdered By: Reginaldo Nava on 07-19-2024 MCHC (RBC) [Mass/Vol] 34.9 g/dL 32-36 [facility] Mean platelet volume determi nationOrdered By: Reginaldo Nava on 07-19-2024 Platelet mean volume (Bld) [Entitic vol] 9.4 fL 6.2-12.0 [facility] Monocyte percentageOrdered B y: Reginaldo Nava on 07-19-2024 Monocytes/100 WBC (Bld) 8.9 % 0-10 [facility] Neutrophil percentageOrdered By: Reginaldo Nava on 07-19-2024 Neutrophils/100 WBC (Bld) 61.2 % 47-70 [facility] Nucleated red blood cell per centageOrdered By: Reginaldo Nava on 07-19-2024 Nucleated RBC/100 WBC (Bld) [Ratio] 0 % 0-5 [facility] Oncology Visit Reporton 05 Oncology Visit Report [facility] [facility] [address] [place] [address] OFFICE VISIT Date of Service: 07/19/24 1528 MR#: [id number] Acct: [id number] Name: VAUGHN DINERO Rep #: [id number] : 1955 From: Reginaldo Nava MD Age/Sex: 69/M Location: [facility] Status: Signed HPI Subjective Date of Service [...] up. Feels well, no more bruising episodes. 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 Normal [facility] Platelet countOrdered By: Linnea Nava on 07-19-2024 Platelets (Bld) [#/Vol] 185 10*3/uL 150-450 [facility] Potassium measurement (mass/ volume)Ordered By: Reginaldo Nava on 07-19-2024 Potassium (Unsp spec) [Mass/Vol] 3.9 mmol/L 3.3-5.1 [facility] RBC Auto (Bld) [#/Vol]Ordere d By: Reginaldo Nava on 07-19-2024 RBC (Bld) [#/Vol] 3.74 10*6/uL Low 4.6-6.2 [facility] Serum creatinine measurement (mass/volume)Ordered By: Reginaldo Nava on 07-19-2024 Creatinine [Mass/Vol] 1.26 mg/dL High 0.70-1.20 [facility] Serum globulin measurementOr dered By: Reginaldo Nava on 07-19-2024 Globulin (S) [Mass/Vol] 2.2 g/dL 2.2-4.2 [facility] Serum glucose measurement (m ass/volume)Ordered By: Reginaldo Nava on 07-19-2024 Glucose [Mass/Vol] 156 mg/dL High 70-99 [facility] Serum or plasma alanine cowan otransferase (ALT) measurementOrdered By: Reginaldo Nava on 07-19-2024 ALT [Catalytic activity/Vol] 29 U/L <47 [facility] Serum or plasma albumin ioana urement (mass/volume)Ordered By: Reginaldo Nava on 07-19-2024 Albumin [Mass/Vol] 4.1 g/dL 3.4-4.8 [facility] Serum or plasma albumin/glob ulin mass ratioOrdered By: Reginaldo Nava on 07-19-2024 Albumin/Globulin [Mass ratio] 1.8 {ratio} 0.9-2.4 [facility] Serum or plasma alkaline abdirizak sphatase measurementOrdered By: Reginaldo Nava on 07-19-2024 ALP [Catalytic activity/Vol] 61 U/L 40-129 [facility] Serum or plasma calcium ioana urement (mass/volume)Ordered By: Reginaldo Nava on 07-19-2024 Calcium [Mass/Vol] 9.3 mg/dL 7.6-11.0 [facility] Serum or plasma urea nitroge n measurement (mass/volume)Ordered By: Reginaldo Nava on 07-19-2024 Urea nitrogen [Mass/Vol] 14 mg/dL 4-19 [facility] Sodium levelOrdered By: Jacques Nava on 07-19-2024 Sodium [Moles/Vol] 138 mmol/L 133-145 [facility] Total proteinOrdered By: Jose Nava on 07-19-2024 Protein [Mass/Vol] 6.3 g/dL 5.9-8.4 [facility] White blood cell (WBC) count Ordered By: Reginaldo Nava on 07-19-2024 WBC (Bld) [#/Vol] 4.0 10*3/uL Low 4.4-11.0 [facility] Absolute lymphocyte countOrd ered By: Holly Arzola on 07-05-2024 Lymphocytes Auto (Unsp spec) [#/Vol] 1.62 10*3/uL 0.83-4.51 [facility] Absolute neutrophil countOrd ered By: Holly Arzola on 07-05-2024 Neutrophils (Bld) [#/Vol] 4.5 10*3/uL 2.0-7.7 [facility] Anion gap in Serum or Plasma Ordered By: Holly Arzola on 07-05-2024 Anion gap [Moles/Vol] 10 mmol/L 5-15 [facility] Automated lymphocyte count a s percentage of total leukocytesOrdered By: oHlly Arzola on 07-05-2024 Lymphocytes/100 WBC Auto (Unsp spec) 24.3 % 19-41 [facility] BUN/creatinine ratioOrdered By: Holly Arzola on 07-05-2024 Urea nitrogen/Creatinine [Mass ratio] 11.9 mg/mg 10-20 [facility] Basophil percentageOrdered B y: Holly Arzola on 07-05-2024 Basophils/100 WBC (Bld) 0.4 % 0-1 [facility] Bilirubin, totalOrdered By: Holly Arzola on 07-05-2024 Bilirubin [Mass/Vol] 0.48 mg/dL 0.00-1.30 [facility] CBC W/Diff, Automatedon 04-2 -2024 Absolute Lymph 1.62 X10 3/uL Normal 0.83-4.51 [facility] Comment on above: Performed By: #### L 500.4050, L300.3900, L100.0100, L300.4310, L3130.0010, L504.2610, L300.4700, L3100.3425 #### [facility] [address] [place], [address] Absolute Neut 4.5 X10 3/uL Normal 2.0-7.7 [facility] Comment on above: Performed By: #### L 500.4050, L300.3900, L100.0100, L300.4310, L3130.0010, L504.2610, L300.4700, L3100.3425 #### [facility] [address] [place], [address] Basophils/100 WBC (Bld) 0.4 % Normal 0-1 [facility] Comment on above: Performed By: #### L 500.4050, L300.3900, L100.0100, L300.4310, L3130.0010, L504.2610, L300.4700, L3100.3425 #### [facility] [address] [place], [address] Eosinophils/100 WBC (Bld) 0.9 % Normal 0-5 [facility] Comment on above: Performed By: #### L 500.4050, L300.3900, L100.0100, L300.4310, L3130.0010, L504.2610, L300.4700, L3100.3425 #### [facility] [address] [place], [address] Erythrocyte distribution width (RBC) [Ratio] 13.6 % Normal 11.6-14.6 [facility] Comment on above: Performed By: #### L 500.4050, L300.3900, L100.0100, L300.4310, L3130.0010, L504.2610, L300.4700, L3100.3425 #### [facility] [address] [place], [address] (734) Hematocrit (Bld) [Volume fraction] 35.6 % Low 40-54 [facility] Comment on above: Performed By: #### L 500.4050, L300.3900, L100.0100, L300.4310, L3130.0010, L504.2610, L300.4700, L3100.3425 #### [facility] [address] [place], [address] (526 Hemoglobin (Bld) [Mass/Vol] 12.3 g/dL Low 13.0-16.5 [facility] Comment on above: Performed By: #### L 500.4050, L300.3900, L100.0100, L300.4310, L3130.0010, L504.2610, L300.4700, L3100.3425 #### [facility] [address] [place], [address] (879 IG% 0.300 Normal 0.0-0.9 [facility] Comment on above: Result Comment: IG% - Immature Granulocytes (promyelocytes, myelocytes and metamyelocytes) > 1% indicates that a LEFT SHIFT is Present. Performed By: #### L 500.4050, L300.3900, L100.0100, L300.4310, L3130.0010, L504.2610, L300.4700, L3100.3425 #### [facility] [address] [place], [address] (124 Lymphocytes/100 WBC (Bld) 24.3 % Normal 19-41 [facility] Comment on above: Performed By: #### L 500.4050, L300.3900, L100.0100, L300.4310, L3130.0010, L504.2610, L300.4700, L3100.3425 #### [facility] [address] [place], [address] MCH (RBC) [Entitic mass] 30.8 pg Normal 27.0-32.0 [facility] Comment on above: Performed By: #### L 500.4050, L300.3900, L100.0100, L300.4310, L3130.0010, L504.2610, L300.4700, L3100.3425 #### [facility] [address] [place], [address] MCHC (RBC) [Mass/Vol] 34.6 g/dL Normal 32-36 [facility] Comment on above: Performed By: #### L 500.4050, L300.3900, L100.0100, L300.4310, L3130.0010, L504.2610, L300.4700, L3100.3425 #### [facility] [address] [place], [address] MCV (RBC) [Entitic vol] 89.2 fL Normal 80-94 [facility] Comment on above: Performed By: #### L 500.4050, L300.3900, L100.0100, L300.4310, L3130.0010, L504.2610, L300.4700, L3100.3425 #### [facility] [address] [place], [address] Monocytes/100 WBC (Bld) 7.2 % Normal 0-10 [facility] Comment on above: Performed By: #### L 500.4050, L300.3900, L100.0100, L300.4310, L3130.0010, L504.2610, L300.4700, L3100.3425 #### [facility] [address] [place], [address] Neutrophils/100 WBC (Bld) 66.9 % Normal 47-70 [facility] Comment on above: Performed By: #### L 500.4050, L300.3900, L100.0100, L300.4310, L3130.0010, L504.2610, L300.4700, L3100.3425 #### [facility] [address] [place], [address] Nucleated RBC (Bld) [#/Vol] 0 10*3/uL Normal 0-5 [facility] Comment on above: Performed By: #### L 500.4050, L300.3900, L100.0100, L300.4310, L3130.0010, L504.2610, L300.4700, L3100.3425 #### [facility] [address] [place], [address] Platelet mean volume (Bld) [Entitic vol] 9.9 fL Normal 6.2-12.0 [facility] Comment on above: Performed By: #### L 500.4050, L300.3900, L100.0100, L300.4310, L3130.0010, L504.2610, L300.4700, L3100.3425 #### [facility] [address] [place], [address] Platelets (Bld) [#/Vol] 199 10*3/uL Normal 150-450 [facility] Comment on above: Performed By: #### L 500.4050, L300.3900, L100.0100, L300.4310, L3130.0010, L504.2610, L300.4700, L3100.3425 #### [facility] [address] [place], [address] RBC (Bld) [#/Vol] 3.99 10*6/uL Low 4.6-6.2 [facility] Comment on above: Performed By: #### L 500.4050, L300.3900, L100.0100, L300.4310, L3130.0010, L504.2610, L300.4700, L3100.3425 #### [facility] [address] [place], [address] RDW SD 44.4 fl High 35.1-43.9 [facility] Comment on above: Performed By: #### L 500.4050, L300.3900, L100.0100, L300.4310, L3130.0010, L504.2610, L300.4700, L3100.3425 #### [facility] [address] [place], [address] WBC (Bld) [#/Vol] 6.7 10*3/uL Normal 4.4-11.0 [facility] Comment on above: Performed By: #### L 500.4050, L300.3900, L100.0100, L300.4310, L3130.0010, L504.2610, L300.4700, L3100.3425 #### [facility] [address] [place], [address] Carbon dioxide, total [Moles /volume] in Central venous bloodOrdered By: Holly Arzola on 07-05-2024 CO2 [Moles/Vol] 25.9 mmol/L 21.0-32.0 [facility] Chloride assayOrdered By: Bipin Arzola on 07-05-2024 Chloride [Moles/Vol] 103 mmol/L 98-108 [facility] Comprehensive Metabolic Prof ilon 07-05-2024 Albumin [Mass/Vol] 4.3 g/dL Normal 3.4-4.8 [facility] Comment on above: Order Comment: PLEAS E FAX RESULTS FOR CMP,TEST,AND PSA TO [phone] [facility]. DARIUSZ GETS RESULTS FOR CMP AND CBCD [phone] Performed By: #### L 500.4050, L300.3900, L100.0100, L300.4310, L3130.0010, L504.2610, L300.4700, L3100.3425 #### [facility] [address] [place], [place], [address] Albumin/Globulin [Mass ratio] 2.0 {ratio} Normal 0.9-2.4 [facility] Comment on above: Order Comment: PLEAS E FAX RESULTS FOR CMP,TEST,AND PSA TO [address] [place], [place] [address]DR. DARIUSZ GETS RESULTS FOR CMP AND CBCD [phone] Performed By: #### L 500.4050, L300.3900, L100.0100, L300.4310, L3130.0010, L504.2610, L300.4700, L3100.3425 #### [facility] [address] [place], [address] ALK PHOS 51 U/L Normal 40-129 [facility] Comment on above: Order Comment: PLEAS E FAX RESULTS FOR CMP,TEST,AND PSA TO [address] [place], [place] [address]DR. DARIUSZ GETS RESULTS FOR CMP AND CBCD [phone] Performed By: #### L 500.4050, L300.3900, L100.0100, L300.4310, L3130.0010, L504.2610, L300.4700, L3100.3425 #### [facility] [address] [place], [place], [id number] ALT [Catalytic activity/Vol] 33 U/L Normal <=46 [facility] Comment on above: Order Comment: PLEAS E FAX RESULTS FOR CMP,TEST,AND PSA TO [address] [place], [place] [address]DR. DARIUSZ GETS RESULTS FOR CMP AND CBCD [phone] Performed By: #### L 500.4050, L300.3900, L100.0100, L300.4310, L3130.0010, L504.2610, L300.4700, L3100.3425 #### [facility] [address] [place], [place], [id number] AST [Catalytic activity/Vol] 35 U/L Normal <=37 [facility] Comment on above: Order Comment: PLEAS E FAX RESULTS FOR CMP,TEST,AND PSA TO [address] [place] [address]. DARIUSZ GETS RESULTS FOR CMP AND CBCD [phone] Performed By: #### L 500.4050, L300.3900, L100.0100, L300.4310, L3130.0010, L504.2610, L300.4700, L3100.3425 #### [facility] [address] [place], [place], [id number] [phone] Bilirubin [Mass/Vol] 0.48 mg/dL Normal 0.00-1.30 [facility] Comment on above: Order Comment: PLEAS E FAX RESULTS FOR CMP,TEST,AND PSA TO [address] [place] [address]. DARIUSZ GETS RESULTS FOR CMP AND CBCD [phone] Performed By: #### L 500.4050, L300.3900, L100.0100, L300.4310, L3130.0010, L504.2610, L300.4700, L3100.3425 #### [facility] [address] [place], [place], [id number] [phone] BUN/CRE 11.9 RATIO Normal 10-20 [facility] Comment on above: Order Comment: PLEAS E FAX RESULTS FOR CMP,TEST,AND PSA TO [address] [place] [address]. DARIUSZ GETS RESULTS FOR CMP AND CBCD [phone] Performed By: #### L 500.4050, L300.3900, L100.0100, L300.4310, L3130.0010, L504.2610, L300.4700, L3100.3425 #### [facility] [address] [place], [address] Calcium [Mass/Vol] 9.4 mg/dL Normal 7.6-11.0 [facility] Comment on above: Order Comment: PLEAS E FAX RESULTS FOR CMP,TEST,AND PSA TO [address] [place] [address]. DARIUSZ GETS RESULTS FOR CMP AND CBCD [phone] Performed By: #### L 500.4050, L300.3900, L100.0100, L300.4310, L3130.0010, L504.2610, L300.4700, L3100.3425 #### [facility] [address] [place], [address] Chloride [Moles/Vol] 103 mmol/L Normal 98-108 [facility] Comment on above: Order Comment: PLEAS E FAX RESULTS FOR CMP,TEST,AND PSA TO [address] [place] [address]. DARIUSZ GETS RESULTS FOR CMP AND CBCD [phone] Performed By: #### L 500.4050, L300.3900, L100.0100, L300.4310, L3130.0010, L504.2610, L300.4700, L3100.3425 #### [facility] [address] [place], [address] CO2 [Moles/Vol] 25.9 mmol/L Normal 21.0-32.0 [facility] Comment on above: Order Comment: PLEAS E FAX RESULTS FOR CMP,TEST,AND PSA TO [address] [place] [address]. DARIUSZ GETS RESULTS FOR CMP AND CBCD [phone] Performed By: #### L 500.4050, L300.3900, L100.0100, L300.4310, L3130.0010, L504.2610, L300.4700, L3100.3425 #### [facility] [address] [place], [address] Creatinine [Mass/Vol] 1.32 mg/dL High 0.70-1.20 [facility] Comment on above: Order Comment: PLEAS E FAX RESULTS FOR CMP,TEST,AND PSA TO [phone] [facility] DARIUS[facility] GETS RESULTS FOR CMP AND CBCD [phone] Performed By: #### L 500.4050, L300.3900, L100.0100, L300.4310, L3130.0010, L504.2610, L300.4700, L3100.3425 #### [facility] [address] [place], [address] GAP 10 Normal 5-15 [facility] Comment on above: Order Comment: PLEAS E FAX RESULTS FOR CMP,TEST,AND PSA TO [address] [place], [place] [address]DR. DARIUSZ GETS RESULTS FOR CMP AND CBCD [phone] Performed By: #### L 500.4050, L300.3900, L100.0100, L300.4310, L3130.0010, L504.2610, L300.4700, L3100.3425 #### [facility] [address] [place], [address] GFR/1.73 sq M.predicted among non-blacks MDRD (S/P/Bld) [Vol rate/Area] 58 mL/min/{1.73_m2} Low >60 [facility] Comment on above: Order Comment: PLEAS E FAX RESULTS FOR CMP,TEST,AND PSA TO [phone] [place], [place] [address]DR. DARIUSZ GETS RESULTS FOR CMP AND CBCD [phone] Result Comment: mL/m in/1.73m2 CKD-EPI Creatinine Equation (2020) Performed By: #### L 500.4050, L300.3900, L100.0100, L300.4310, L3130.0010, L504.2610, L300.4700, L3100.3425 #### [facility] [address] [place], [address] Globulin (S) [Mass/Vol] 2.2 g/dL Normal 2.2-4.2 [facility] Comment on above: Order Comment: PLEAS E FAX RESULTS FOR CMP,TEST,AND PSA TO [address] [place] [address]. DARIUSZ GETS RESULTS FOR CMP AND CBCD [phone] Performed By: #### L 500.4050, L300.3900, L100.0100, L300.4310, L3130.0010, L504.2610, L300.4700, L3100.3425 #### [facility] [address] [place], [address] Glucose [Mass/Vol] 117 mg/dL High 70-99 [facility] Comment on above: Order Comment: PLEAS E FAX RESULTS FOR CMP,TEST,AND PSA TO [address] [place] [address]. DARIUSZ GETS RESULTS FOR CMP AND CBCD [phone] Performed By: #### L 500.4050, L300.3900, L100.0100, L300.4310, L3130.0010, L504.2610, L300.4700, L3100.3425 #### [facility] [address] [place], [address] Potassium [Moles/Vol] 4.3 mmol/L Normal 3.3-5.1 [facility] Comment on above: Order Comment: PLEAS E FAX RESULTS FOR CMP,TEST,AND PSA TO [address] [place] [address]. DARIUSZ GETS RESULTS FOR CMP AND CBCD [phone] Performed By: #### L 500.4050, L300.3900, L100.0100, L300.4310, L3130.0010, L504.2610, L300.4700, L3100.3425 #### [facility] [address] [place], [address] Sodium [Moles/Vol] 139 mmol/L Normal 133-145 [facility] Comment on above: Order Comment: PLEAS E FAX RESULTS FOR CMP,TEST,AND PSA TO [address] [place], [place] [address]DR. DARIUSZ GETS RESULTS FOR CMP AND CBCD [phone] Performed By: #### L 500.4050, L300.3900, L100.0100, L300.4310, L3130.0010, L504.2610, L300.4700, L3100.3425 #### [facility] [address] [place], [address] T PROT 6.5 g/dL Normal 5.9-8.4 [facility] Comment on above: Order Comment: PLEAS E FAX RESULTS FOR CMP,TEST,AND PSA TO [address] [place], [place] [address]DR. DARIUSZ GETS RESULTS FOR CMP AND CBCD [phone] Performed By: #### L 500.4050, L300.3900, L100.0100, L300.4310, L3130.0010, L504.2610, L300.4700, L3100.3425 #### [facility] [address] [place], [address] Urea nitrogen [Mass/Vol] 16 mg/dL Normal 4-19 [facility] Comment on above: Order Comment: PLEAS E FAX RESULTS FOR CMP,TEST,AND PSA TO [address] [place], [place] [address]DR. DARIUSZ GETS RESULTS FOR CMP AND CBCD [phone] Performed By: #### L 500.4050, L300.3900, L100.0100, L300.4310, L3130.0010, L504.2610, L300.4700, L3100.3425 #### [facility] [address] [place], [address] Eosinophil percentageOrdered By: Holly Arzola on 07-05-2024 Eosinophils/100 WBC (Bld) 0.9 % 0-5 [facility] Erythrocyte distribution wid th ratioOrdered By: Holly Arzola on 07-05-2024 Erythrocyte distribution width (RBC) [Ratio] 13.6 % 11.6-14.6 [facility] Erythrocyte distribution wid th standard deviationOrdered By: Holly Arzola on 07-05-2024 Erythrocyte distribution width (RBC) [Ratio] 44.4 fl High 35.1-43.9 [facility] Free testosterone percentage Ordered By: Holly Arzola on 07-05-2024 Testosterone Free/Testosterone.total [Mass fraction] Not Reportable [facility] Glomerular filtration rate ( GFR) estimation/1.73 sq m using serum, plasma, or whole bOrdered By: Holly Arzola on 07-05-2024 GFR/1.73 sq M.predicted among non-blacks MDRD (S/P/Bld) [Vol rate/Area] 58 mL/min/{1.73_m2} Low >60 [facility] Comment on above: mL/min/1.73m2 CKD-EP I Creatinine Equation (2020) Hematocrit Auto (Bld) [Volum e fraction]Ordered By: Holly Arzola on 07-05-2024 Hematocrit (Bld) [Volume fraction] 35.6 % Low 40-54 [facility] Hemoglobin measurementOrdere d By: Holly Arzola on 07-05-2024 Hemoglobin (Bld) [Mass/Vol] 12.3 g/dL Low 13.0-16.5 [facility] Immature granulocytes/100 WB C Auto (Bld)Ordered By: Holly Arzola 07-05-2024 Immature granulocytes/100 WBC (Bld) 0.300 % 0.0-0.9 [facility] Comment on above: IG% - Immature Granu locytes (promyelocytes, myelocytes and metamyelocytes) > 1% indicates that a LEFT SHIFT is Present. Laboratory - Chemistry and C hemistry - challengeOrdered By: Holly Arzola on 07-05-2024 AST [Catalytic activity/Vol] 35 U/L <38 [facility] MCV (mean corpuscular volume ) determinationOrdered By: Holly Arzola on 07-05-2024 MCV (RBC) [Entitic vol] 89.2 fL 80-94 [facility] Mean corpuscular hemoglobin (MCH) determinationOrdered By: Holly Arzola on 07-05-2024 MCH (RBC) [Entitic mass] 30.8 pg 27.0-32.0 [facility] Mean corpuscular hemoglobin concentration (MCHC) determinationOrdered By: Holly Arzola on 07-05-2024 MCHC (RBC) [Mass/Vol] 34.6 g/dL 32-36 [facility] Mean platelet volume determi nationOrdered By: Holly Arzola on 07-05-2024 Platelet mean volume (Bld) [Entitic vol] 9.9 fL 6.2-12.0 [facility] Monocyte percentageOrdered B y: Holly Arzola on 07-05-2024 Monocytes/100 WBC (Bld) 7.2 % 0-10 [facility] Neutrophil percentageOrdered By: Holly Arzola on 07-05-2024 Neutrophils/100 WBC (Bld) 66.9 % 47-70 [facility] Nucleated red blood cell per centageOrdered By: Holly Arzola on 07-05-2024 Nucleated RBC/100 WBC (Bld) [Ratio] 0 % 0-5 [facility] Platelet countOrdered By: Bipin Arzola on 07-05-2024 Platelets (Bld) [#/Vol] 199 10*3/uL 150-450 [facility] Potassium measurement (mass/ volume)Ordered By: Holly Arzola on 07-05-2024 Potassium (Unsp spec) [Mass/Vol] 4.3 mmol/L 3.3-5.1 [facility] RBC Auto (Bld) [#/Vol]Ordere d By: Holly Arzola on 07-05-2024 RBC (Bld) [#/Vol] 3.99 10*6/uL Low 4.6-6.2 [facility] Serum creatinine measurement (mass/volume)Ordered By: Holly Arzola on 07-05-2024 Creatinine [Mass/Vol] 1.32 mg/dL High 0.70-1.20 [facility] Serum globulin measurementOr dered By: Holly Arzola on 07-05-2024 Globulin (S) [Mass/Vol] 2.2 g/dL 2.2-4.2 [facility] Serum glucose measurement (m ass/volume)Ordered By: Holly Arzola on 07-05-2024 Glucose [Mass/Vol] 117 mg/dL High 70-99 [facility] Serum or plasma alanine cowan otransferase (ALT) measurementOrdered By: Holly Arzola on 07-05-2024 ALT [Catalytic activity/Vol] 33 U/L <47 [facility] Serum or plasma albumin ioana urement (mass/volume)Ordered By: Holly Arzola on 07-05-2024 Albumin [Mass/Vol] 4.3 g/dL 3.4-4.8 [facility] Serum or plasma albumin/glob ulin mass ratioOrdered By: Holly Arzola on 07-05-2024 Albumin/Globulin [Mass ratio] 2.0 {ratio} 0.9-2.4 [facility] Serum or plasma alkaline abdirizak sphatase measurementOrdered By: Holly Arzola on 07-05-2024 ALP [Catalytic activity/Vol] 51 U/L 40-129 [facility] Serum or plasma calcium ioana urement (mass/volume)Ordered By: Holly Arzola on 07-05-2024 Calcium [Mass/Vol] 9.4 mg/dL 7.6-11.0 [facility] Serum or plasma free prostat e specific antigen (PSA)/total PSA mass ratioOrdered By: Holly Arzola on 07-05-2024 Free PSA/Total PSA [Mass fraction] Not Reportable [facility] Serum or plasma free testost erone measurement (mass/volume)Ordered By: Holly Arzola on 07-05-2024 Testosterone Free [Mass/Vol] Not Reportable [facility] Serum or plasma urea nitroge n measurement (mass/volume)Ordered By: Holly Arzola on 07-05-2024 Urea nitrogen [Mass/Vol] 16 mg/dL 4-19 [facility] Sodium levelOrdered By: Riki Arzola on 07-05-2024 Sodium [Moles/Vol] 139 mmol/L 133-145 [facility] Testosterone, totalOrdered B y: Holly Arzola on 07-05-2024 Testosterone, total See comment [facility] Comment on above: TEST RESULTS LIMITST estosterone, Free/Tot Equilib Testosterone 624 ng/dL [phone] Adult male reference interval is based on a population of healthy nonobese males (BMI <30) between 19 and 39 years old. Aniceto et.al. JCEM 2017,102;3930-9284. PMID: [id number]. Testosterone,Free 20.84 ng/dL 5.00-21.00 % Free Testosterone 3.34 % 1.50-4.20 TESTING PERFORMED AT [facility]. ORIGINAL REPORT ON FILE IN LAB CONTAINS ADDITIONAL TEST SITE INFORMATION. Total proteinOrdered By: Gillian Arzola on 07-05-2024 Protein [Mass/Vol] 6.5 g/dL 5.9-8.4 [facility] White blood cell (WBC) count Ordered By: Holly Arzola on 07-05-2024 WBC (Bld) [#/Vol] 6.7 10*3/uL 4.4-11.0 [facility] Orthopedic Visit Reporton Orthopedic Visit Report [facility] [address] [place] [id number] OFFICE VISIT Date of Service: 07/02/24 MR#: [id number] Acct: [id number] Name: VAUGHN DINERO Rep #: [id number] : 1955 Provider: Dr. 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 Normal [facility] PT D/C Summary (1)on 025 PT D/C Summary (1) [facility] Physical Therapy [facility] [address] [place] [address]. [address] [place] [address] / REHABILITATION SERVICES DISCHARGE SUMMARY MR#: [id number] Acct: [id number] Name: VAUGHN DINERO Rep #: [id number] : 1955 69 From: Cam Santillan PT, [...] please feel free to call me at [phone]. Thank you for the referral of this patient. Sincerely, Cam Santillan, PT, ATC Balance/Gait/Functiona l tests Balance/Special Test Scores Lower Extremity Functional Score: 75 Improvement % Improvement: 45 06/06/24 0759 CC: Dr. Reginaldo Blank DO; Dr. True Ibarra DO [facility] Signed Normal [facility] Oncology Visit Reporton 04-14 Oncology Visit Report [facility] 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 Takes as prescribed and adherent to use of folate. ASA 81 daily. No ETOH or NSAID use. No recent atb. 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 Normal [facility] PSA,Total - Annual Screenon 04-26-2024 PSA,TOT SCREEN 0.36 ng/mL Normal 0.00-4.00 [facility] Comment on above: Result Comment: This test was performed using the TPSA assay method for the [employer] chemistry system. Values obtained with different assay methods cannot be used interchangably. When changing PSA assays in the course of monitoring a patient, additional sequential testing should be carried out to confirm baseline values. Performed By: #### L 501.9910 ####[facility] [address] [place], [address] Screening prostate specific antigen (PSA) measurementOrdered By: Ilsa Santillan on 04-26-2024 Prostate Specific Antigen Screen 0.36 ng/mL 0.00-4.00 [facility] Comment on above: This test was perfor med using the TPSA assay method for the[employer] chemistry system. Values obtained with differentassay methods cannot be used interchangably.When changing PSA assays in the course of monitoring apatient, additional sequential testing should be carriedout to confirm baseline values. Absolute neutrophil countOrd ered By: Holly Arzola on 04-23-2024 Neutrophils (Bld) [#/Vol] 2.9 10*3/uL 2.0-7.7 [facility] Albumin to globulin ratioOrd ered By: Holly Arzola on 04-23-2024 Albumin/Globulin [Mass ratio] 1.4 {ratio} 0.9-2.4 [facility] Basophil percentageOrdered B y: Holly Arzola on 04-23-2024 Basophils/100 WBC (Bld) 0.9 % 0-1 [facility] Bilirubin, totalOrdered By: Holly Arzola on 04-23-2024 Bilirubin [Mass/Vol] 0.40 mg/dL 0.20-1.00 [facility] Comment on above: For patients on eltr ombopag therapy, use of Dimension [place] TBIL is not recommended. Blood urea nitrogen (BUN)/cr eatinine ratioOrdered By: Holly Arzola on 04-23-2024 Urea nitrogen/Creatinine [Mass ratio] 9.8 mg/mg Low 10-20 [facility] CBC W/Diff, Automatedon 04-14 Absolute Lymph 0.88 X10 3/uL Normal 0.83-4.51 [facility] Comment on above: Performed By: #### L 100.0100, L500.4050 ####[facility] [address] [place], [address] Absolute Neut 2.9 X10 3/uL Normal 2.0-7.7 [facility] Comment on above: Performed By: #### L 100.0100, L500.4050 ####[facility] [address] [place], [address] Basophils/100 WBC (Bld) 0.9 % Normal 0-1 [facility] Comment on above: Performed By: #### L 100.0100, L500.4050 ####[facility] [address] [place], [address] Eosinophils/100 WBC (Bld) 2.1 % Normal 0-5 [facility] Comment on above: Performed By: #### L 100.0100, L500.4050 ####[facility] [address] [place], [address] Erythrocyte distribution width (RBC) [Ratio] 14.1 % Normal 11.6-14.6 [facility] Comment on above: Performed By: #### L 100.0100, L500.4050 ####[facility] [address] [place], [address] Hematocrit (Bld) [Volume fraction] 37.2 % Low 40-54 [facility] Comment on above: Performed By: #### L 100.0100, L500.4050 ####[facility] [address] [place], [address] Hemoglobin (Bld) [Mass/Vol] 12.4 g/dL Low 13.0-16.5 [facility] Comment on above: Performed By: #### L 100.0100, L500.4050 ####[facility] [address] [place], [address] IG% 0.200 Normal 0.0-0.9 [facility] Comment on above: Result Comment: IG% - Immature Granulocytes (promyelocytes, myelocytes and metamyelocytes) > 1% indicates that a LEFT SHIFT is Present. Performed By: #### L 100.0100, L500.4050 ####[facility] [address] [place], [address] Lymphocytes/100 WBC (Bld) 20.8 % Normal 19-41 [facility] Comment on above: Performed By: #### L 100.0100, L500.4050 ####[facility] [address] [place], [address] MCH (RBC) [Entitic mass] 30.2 pg Normal 27.0-32.0 [facility] Comment on above: Performed By: #### L 100.0100, L500.4050 ####[facility] [address] [place], [address] MCHC (RBC) [Mass/Vol] 33.3 g/dL Normal 32-36 [facility] Comment on above: Performed By: #### L 100.0100, L500.4050 ####[facility] [address] [place], [address] MCV (RBC) [Entitic vol] 90.7 fL Normal 80-94 [facility] Comment on above: Performed By: #### L 100.0100, L500.4050 ####[facility] [address] [place], [address] Monocytes/100 WBC (Bld) 8.5 % Normal 0-10 [facility] Comment on above: Performed By: #### L 100.0100, L500.4050 ####[facility] [address] [place], [address] Neutrophils/100 WBC (Bld) 67.5 % Normal 47-70 [facility] Comment on above: Performed By: #### L 100.0100, L500.4050 ####[facility] [address] [place], [address] Nucleated RBC (Bld) [#/Vol] 0 10*3/uL Normal 0-5 [facility] Comment on above: Performed By: #### L 100.0100, L500.4050 ####[facility] [address] [place], [address] Platelet mean volume (Bld) [Entitic vol] 10.1 fL Normal 6.2-12.0 [facility] Comment on above: Performed By: #### L 100.0100, L500.4050 ####[facility] [address] [place], [address] Platelets (Bld) [#/Vol] 173 10*3/uL Normal 150-450 [facility] Comment on above: Performed By: #### L 100.0100, L500.4050 ####[facility] [address] [place], [address] RBC (Bld) [#/Vol] 4.10 10*6/uL Low 4.6-6.2 [facility] Comment on above: Performed By: #### L 100.0100, L500.4050 ####[facility] [address] [place], [address] RDW SD 46.6 fl High 35.1-43.9 [facility] Comment on above: Performed By: #### L 100.0100, L500.4050 ####[facility] [address] [place], [address] WBC (Bld) [#/Vol] 4.2 10*3/uL Low 4.4-11.0 [facility] Comment on above: Performed By: #### L 100.0100, L500.4050 ####[facility] [address] [place], [address] Carbon dioxide measurementOr dered By: Holly Arzola on 04-23-2024 CO2 [Moles/Vol] 28.0 mmol/L 21.0-32.0 [facility] Chloride measurementOrdered By: Holly Arzola on 04-23-2024 Chloride [Moles/Vol] 106 mmol/L 98-107 [facility] Comprehensive Metabolic Prof ilon 04-23-2024 Albumin [Mass/Vol] 3.8 g/dL Normal 3.2-5.0 [facility] Comment on above: Performed By: #### L 100.0100, L500.4050 ####[facility] [address] [place], [address] Albumin/Globulin [Mass ratio] 1.4 {ratio} Normal 0.9-2.4 [facility] Comment on above: Performed By: #### L 100.0100, L500.4050 ####[facility] [address] [place], [address] ALK P 54 U/L Normal 45-117 [facility] Comment on above: Performed By: #### L 100.0100, L500.4050 ####[facility] [address] [place], [address] ALT [Catalytic activity/Vol] 31 U/L Normal 16-61 [facility] Comment on above: Performed By: #### L 100.0100, L500.4050 ####[facility] [address] [place], [address] AST [Catalytic activity/Vol] 27 U/L Normal 15-37 [facility] Comment on above: Performed By: #### L 100.0100, L500.4050 ####[facility] [address] [place], [address] Bilirubin [Mass/Vol] 0.40 mg/dL Normal 0.20-1.00 [facility] Comment on above: Result Comment: For patients on eltrombopag therapy, use of Dimension [place] TBIL is not recommended. Performed By: #### L 100.0100, L500.4050 ####[facility] [address] [place], [address] BUN/CRE 9.8 RATIO Low 10-20 [facility] Comment on above: Performed By: #### L 100.0100, L500.4050 ####[facility] [address] [place], [address] CA,Total 8.8 mg/dL Normal 8.5-10.1 [facility] Comment on above: Performed By: #### L 100.0100, L500.4050 ####[facility] [address] [place], [address] Chloride [Moles/Vol] 106 mmol/L Normal 98-107 [facility] Comment on above: Performed By: #### L 100.0100, L500.4050 ####[facility] [address] [place], [address] CO2 [Moles/Vol] 28.0 mmol/L Normal 21.0-32.0 [facility] Comment on above: Performed By: #### L 100.0100, L500.4050 ####[facility] [address] [place], [address] Creatinine [Mass/Vol] 1.12 mg/dL Normal 0.70-1.30 [facility] Comment on above: Result Comment: The validity of the calculated GFR GFRAA in patients over 70 years has not been determined. Clinical correlation is essential. Performed By: #### L 100.0100, L500.4050 ####[facility] [address] [place], [address] EST GFR - AA 83 mL/min Normal >60 [facility] Comment on above: Result Comment: Afri can Prydeinig GFR Calc Performed By: #### L 100.0100, L500.4050 ####[facility] [address] [place], [address] GAP 4 Low 5-15 [facility] Comment on above: Performed By: #### L 100.0100, L500.4050 ####[facility] [address] [place], [address] GFR/1.73 sq M.predicted among non-blacks MDRD (S/P/Bld) [Vol rate/Area] 69 mL/min/{1.73_m2} Normal >60 [facility] Comment on above: Result Comment: Non- GFR Calc Performed By: #### L 100.0100, L500.4050 ####[facility] [address] [place], [address] Globulin (S) [Mass/Vol] 2.8 g/dL Normal 2.2-4.2 [facility] Comment on above: Performed By: #### L 100.0100, L500.4050 ####[facility] [address] [place], [address] Glucose [Mass/Vol] 99 mg/dL Normal 74-106 [facility] Comment on above: Performed By: #### L 100.0100, L500.4050 ####[facility] [address] [place], [address] Potassium [Moles/Vol] 4.3 mmol/L Normal 3.5-5.1 [facility] Comment on above: Performed By: #### L 100.0100, L500.4050 ####[facility] [address] [place], [address] Sodium [Moles/Vol] 138 mmol/L Normal 136-145 [facility] Comment on above: Performed By: #### L 100.0100, L500.4050 ####[facility] [address] [place], [address] T PROT 6.6 g/dL Normal 6.4-8.2 [facility] Comment on above: Performed By: #### L 100.0100, L500.4050 ####[facility] [address] [place], [address] Urea nitrogen [Mass/Vol] 11 mg/dL Normal 7-18 [facility] Comment on above: Performed By: #### L 100.0100, L500.4050 ####[facility] [address] [place], [address] Eosinophil percentageOrdered By: Holly Arzola on 04-23-2024 Eosinophils/100 WBC (Bld) 2.1 % 0-5 [facility] Erythrocyte distribution wid th ratioOrdered By: Holly Arzola on 04-23-2024 Erythrocyte distribution width (RBC) [Ratio] 14.1 % 11.6-14.6 [facility] Erythrocyte distribution wid th standard deviationOrdered By: Holly Arzola on 04-23-2024 Erythrocyte distribution width (RBC) [Entitic vol] 46.6 fL High 35.1-43.9 [facility] Estimated glomerular filtrat ion rate (GFR) AmericanOrdered By: Holly Arzola on 04-23-2024 Estimated GFR (MDRD) Amer 83 mL/min >60 [facility] Comment on above: GFR Calc Glomerular filtration rate ( GFR) estimationOrdered By: Holly Arzola on 04-23-2024 Estimated GFR (MDRD) Non-Af Amer 69 mL/min >60 [facility] Comment on above: Non- GFR Calc Glucose measurementOrdered B y: Holly Arzola on 04-23-2024 Glucose [Mass/Vol] 99 mg/dL 74-106 [facility] Hematocrit Auto (Bld) [Volum e fraction]Ordered By: Holly Arzola on 04-23-2024 Hematocrit (Bld) [Volume fraction] 37.2 % Low 40-54 [facility] Hemoglobin measurementOrdere d By: Holly Arzola on 04-23-2024 Hemoglobin (Bld) [Mass/Vol] 12.4 g/dL Low 13.0-16.5 [facility] Immature granulocytes/100 WB C Auto (Bld)Ordered By: Holly Arzola on 04-23-2024 Immature granulocytes/100 WBC (Bld) 0.200 % 0.0-0.9 [facility] Comment on above: IG% - Immature Granu locytes (promyelocytes, myelocytes and metamyelocytes) > 1% indicates that a LEFT SHIFT is Present. Laboratory - Chemistry and C hemistry - challengeOrdered By: Holly Arzola on 04-23-2024 AST [Catalytic activity/Vol] 27 U/L 15-37 [facility] Lymphocytes Auto (Unsp spec) [#/Vol]Ordered By: Holly Arzola on 04-23-2024 Lymphocytes (Bld) [#/Vol] 0.88 10*3/uL 0.83-4.51 [facility] Lymphocytes/100 WBC Auto (Un sp spec)Ordered By: Holly Arzola on 04-23-2024 Lymphocytes/100 WBC (Bld) 20.8 % 19-41 [facility] MCV (mean corpuscular volume ) determinationOrdered By: Holly Arzola on 04-23-2024 MCV (RBC) [Entitic vol] 90.7 fL 80-94 [facility] Mean corpuscular hemoglobin (MCH) determinationOrdered By: Holly Arzola on 04-23-2024 MCH (RBC) [Entitic mass] 30.2 pg 27.0-32.0 [facility] Mean corpuscular hemoglobin concentration (MCHC) determinationOrdered By: Holly Arzola on 04-23-2024 MCHC (RBC) [Mass/Vol] 33.3 g/dL 32-36 [facility] Mean platelet volume determi nationOrdered By: Holly Arzola on 04-23-2024 Platelet mean volume (Bld) [Entitic vol] 10.1 fL 6.2-12.0 [facility] Monocyte percentageOrdered B y: Holly Arzola on 04-23-2024 Monocytes/100 WBC (Bld) 8.5 % 0-10 [facility] Neutrophil percentageOrdered By: Holly Arzola on 04-23-2024 Neutrophils/100 WBC (Bld) 67.5 % 47-70 [facility] Nucleated red blood cell per centageOrdered By: Holly Arzola on 04-23-2024 Nucleated RBC/100 WBC (Bld) [Ratio] 0 % 0-5 [facility] Platelet countOrdered By: Bipin Arzola on 04-23-2024 Platelets (Bld) [#/Vol] 173 10*3/uL 150-450 [facility] Potassium measurementOrdered By: Holly Arzola on 04-23-2024 Potassium [Moles/Vol] 4.3 mmol/L 3.5-5.1 [facility] RBC Auto (Bld) [#/Vol]Ordere d By: Holly Arzola on 04-23-2024 RBC (Bld) [#/Vol] 4.10 10*6/uL Low 4.6-6.2 [facility] Serum anion gap measurementO rdered By: Holly Arzola on 04-23-2024 Anion gap [Moles/Vol] 4 mmol/L Low 5-15 [facility] Serum globulin measurementOr dered By: Holly Arzola on 04-23-2024 Globulin (S) [Mass/Vol] 2.8 g/dL 2.2-4.2 [facility] Serum or plasma alanine cowan otransferase (ALT) measurementOrdered By: Holly Arzola on 04-23-2024 ALT [Catalytic activity/Vol] 31 U/L 16-61 [facility] Serum or plasma albumin ioana urement (mass/volume)Ordered By: Holly Arzola on 04-23-2024 Albumin [Mass/Vol] 3.8 g/dL 3.2-5.0 [facility] Serum or plasma alkaline abdirizak sphatase measurementOrdered By: Holly Arzola on 04-23-2024 ALP [Catalytic activity/Vol] 54 U/L 45-117 [facility] Serum or plasma calcium ioana urement (mass/volume)Ordered By: Holly Arzola on 04-23-2024 Calcium [Mass/Vol] 8.8 mg/dL 8.5-10.1 [facility] Serum or plasma creatinine m easurement (mass/volume)Ordered By: Holly Arzola on 04-23-2024 Creatinine [Mass/Vol] 1.12 mg/dL 0.70-1.30 [facility] Comment on above: The validity of the calculated GFR & GFRAA in patients over 70 years has not been determined. Clinical correlation is essential. Serum or plasma urea nitroge n measurement (mass/volume)Ordered By: Holly Arzola on 04-23-2024 Urea nitrogen [Mass/Vol] 11 mg/dL 7-18 [facility] Sodium levelOrdered By: Riki Arzola on 04-23-2024 Sodium [Moles/Vol] 138 mmol/L 136-145 [facility] Total proteinOrdered By: Gillian Arzola on 04-23-2024 Protein [Mass/Vol] 6.6 g/dL 6.4-8.2 [facility] White blood cell (WBC) count Ordered By: Holly Arzola on 04-23-2024 WBC (Bld) [#/Vol] 4.2 10*3/uL Low 4.4-11.0 [facility] Orthopedic Visit Reporton Orthopedic Visit Report [facility] [address] [place] [address] OFFICE VISIT Date of Service: 04/11/24 MR#: [id number] Acct: [id number] Name: VAUGHN DINERO Rep #: [id number] : 1955 Provider: Dr. 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 Normal [facility] ALINA + Protein Elect, Serumon 04-09-2024 Albumin [Mass/Vol] 3.8 g/dL Normal 2.9-4.4 [facility] Comment on above: Order Comment: N Performed By: #### L 500.4050, L300.3900, L100.0100, L300.4310, L3130.0010, L504.2610, L300.4700, L3100.3425 #### [facility] [address] [place], [place], [id number] Albumin/Globulin [Mass ratio] 1.5 {ratio} Normal 0.7-1.7 [facility] Comment on above: Order Comment: N Performed By: #### L 500.4050, L300.3900, L100.0100, L300.4310, L3130.0010, L504.2610, L300.4700, L3100.3425 #### [facility] [address] [place], [place], [id number] (170 GWEOE-6-LSVO 0.3 g/dL Normal 0.0-0.4 [facility] Comment on above: Order Comment: N Performed By: #### L 500.4050, L300.3900, L100.0100, L300.4310, L3130.0010, L504.2610, L300.4700, L3100.3425 #### [facility] [address] [place], [address] NDKAD-4-CTWU 0.6 g/dL Normal 0.4-1.0 [facility] Comment on above: Order Comment: N Performed By: #### L 500.4050, L300.3900, L100.0100, L300.4310, L3130.0010, L504.2610, L300.4700, L3100.3425 #### [facility] [address] [place], [address] BETA GLOBULIN 1.0 g/dL Normal 0.7-1.3 [facility] Comment on above: Order Comment: N Performed By: #### L 500.4050, L300.3900, L100.0100, L300.4310, L3130.0010, L504.2610, L300.4700, L3100.3425 #### [facility] [address] [place], [address] GAMMA GLOBULIN 0.7 g/dL Normal 0.4-1.8 [facility] Comment on above: Order Comment: N Performed By: #### L 500.4050, L300.3900, L100.0100, L300.4310, L3130.0010, L504.2610, L300.4700, L3100.3425 #### [facility] [address] [place], [address] Globulin (S) [Mass/Vol] 2.6 g/dL Normal 2.2-3.9 [facility] Comment on above: Order Comment: N Performed By: #### L 500.4050, L300.3900, L100.0100, L300.4310, L3130.0010, L504.2610, L300.4700, L3100.3425 #### [facility] [address] [place], [address] ALINA RESULT,S Comment Normal . [facility] Comment on above: Order Comment: N Result Comment: No m onoclonality detected. Performed By: #### L 500.4050, L300.3900, L100.0100, L300.4310, L3130.0010, L504.2610, L300.4700, L3100.3425 #### [facility] [address] [place], [address] IMMUNOGLOB A QN 160 mg/dL Normal 61-437 [facility] Comment on above: Order Comment: N Performed By: #### L 500.4050, L300.3900, L100.0100, L300.4310, L3130.0010, L504.2610, L300.4700, L3100.3425 #### [facility] [address] [place], [place], [id number] (643) IMMUNOGLOB G QN 699 mg/dL Normal 603-1613 [facility] Comment on above: Order Comment: N Performed By: #### L 500.4050, L300.3900, L100.0100, L300.4310, L3130.0010, L504.2610, L300.4700, L3100.3425 #### [facility] [address] [place], [address] IMMUNOGLOB M QN 20 mg/dL Normal 20-172 [facility] Comment on above: Order Comment: N Result Comment: Resu lt confirmed on concentration. Performed By: #### L 500.4050, L300.3900, L100.0100, L300.4310, L3130.0010, L504.2610, L300.4700, L3100.3425 #### [facility] [address] [place], [address] M-Tawanda Not Observed Normal Not Observed [facility] Comment on above: Order Comment: N Performed By: #### L 500.4050, L300.3900, L100.0100, L300.4310, L3130.0010, L504.2610, L300.4700, L3100.3425 #### [facility] [address] [place], [address] NOTE: Comment Normal . [facility] Comment on above: Order Comment: N Result Comment: Prot ein electrophoresis scan will follow via computer, mail, or car usher delivery. Performed By: #### L 500.4050, L300.3900, L100.0100, L300.4310, L3130.0010, L504.2610, L300.4700, L3100.3425 #### [facility] [address] [place], [address] Protein [Mass/Vol] 6.4 g/dL Normal 6.0-8.5 [facility] Comment on above: Order Comment: N Performed By: #### L 500.4050, L300.3900, L100.0100, L300.4310, L3130.0010, L504.2610, L300.4700, L3100.3425 #### [facility] [address] [place], [address] [place] Lambda Light Chainson 04-09-2024 FR KAPPA LT CHN 16.3 mg/L Normal 3.3-19.4 [facility] Comment on above: Order Comment: N Performed By: #### L 500.4050, L300.3900, L100.0100, L300.4310, L3130.0010, L504.2610, L300.4700, L3100.3425 ####[facility] [address] [place], [address] FR LAMBDA LT CH 11.2 mg/L Normal 5.7-26.3 [facility] Comment on above: Order Comment: N Performed By: #### L 500.4050, L300.3900, L100.0100, L300.4310, L3130.0010, L504.2610, L300.4700, L3100.3425 ####[facility] [address] [place], [id number] KAPPA/LAMBDA % 1.46 Normal 0.26-1.65 [facility] Comment on above: Order Comment: N Result Comment: Perf ormed at: [facility] [address] [id number] Core Piler: Jose Angel Marks PhD, Phone: [phone] Performed By: #### L 500.4050, L300.3900, L100.0100, L300.4310, L3130.0010, L504.2610, L300.4700, L3100.3425 ####[facility] [id number] [place], [place], [id number] Absolute neutrophil countOrd ered By: Reginaldo Nava on 04-04-2024 Neutrophils (Bld) [#/Vol] 3.0 10*3/uL 2.0-7.7 [facility] Activated partial thrombopla stin time (aPTT) in platelet poor plasma by coagulation aOrdered By: Reginaldo Nava on 04-04-2024 aPTT Coag (PPP) [Time] 27.2 s 24.1-36.2 [facility] Addendum DocumentOrdered By: Reginaldo Nava on 04-04-2024 Serum Immunofixation Comments Comment . [facility] Comment on above: Protein electrophore sis scan will follow via computer,mail, or car usher delivery. Albumin Elph [Mass/Vol]Order ed By: Reginaldo Nava on 04-04-2024 Albumin [Mass/Vol] 3.8 g/dL 2.9-4.4 [facility] Albumin to globulin ratioOrd ered By: Reginaldo Nava on 04-04-2024 Albumin/Globulin [Mass ratio] 1.3 {ratio} 0.9-2.4 [facility] Alpha 1 globulin Elph [Mass/ Vol]Ordered By: Reginaldo Nava on 04-04-2024 Xzrsx-7-Rgrgvljnt ([place]) 0.3 g/dL 0.0-0.4 [facility] Nqmor-8-Zxyzqekmd ([place]) 0.6 g/dL 0.4-1.0 [facility] Basophil percentageOrdered B y: Reginaldo Nava on 04-04-2024 Basophils/100 WBC (Bld) 0.3 % 0-1 [facility] Beta globulin Elph [Mass/Vol ]Ordered By: Reginaldo Corbetttasneem on 04-04-2024 Beta-Globulins ([place]) 1.0 g/dL 0.7-1.3 [facility] Bilirubin, totalOrdered By: Reginaldo Corbetttasneem on 04-04-2024 Bilirubin [Mass/Vol] 0.40 mg/dL 0.20-1.00 [facility] Comment on above: For patients on eltr ombopag therapy, use of Dimension [place] TBIL is not recommended. Blood urea nitrogen (BUN)/cr eatinine ratioOrdered By: Reginaldo Elijah on 04-04-2024 Urea nitrogen/Creatinine [Mass ratio] 10.1 mg/mg 10-20 [facility] CBC W/Diff, Automatedon 03-15 Absolute Lymph 0.63 X10 3/uL Low 0.83-4.51 [facility] Comment on above: Performed By: #### L 500.4050, L300.3900, L100.0100, L300.4310, L3130.0010, L504.2610, L300.4700, L3100.3425 #### [facility] [address] [place], [place], [phone] ([phone] Absolute Neut 3.0 X10 3/uL Normal 2.0-7.7 [facility] Comment on above: Performed By: #### L 500.4050, L300.3900, L100.0100, L300.4310, L3130.0010, L504.2610, L300.4700, L3100.3425 #### [facility] [address] [place], [address] Basophils/100 WBC (Bld) 0.3 % Normal 0-1 [facility] Comment on above: Performed By: #### L 500.4050, L300.3900, L100.0100, L300.4310, L3130.0010, L504.2610, L300.4700, L3100.3425 #### [facility] [address] [place], [place], [phone] ([address] Eosinophils/100 WBC (Bld) 0.3 % Normal 0-5 [facility] Comment on above: Performed By: #### L 500.4050, L300.3900, L100.0100, L300.4310, L3130.0010, L504.2610, L300.4700, L3100.3425 #### [facility] [address] [place], [address] Erythrocyte distribution width (RBC) [Ratio] 14.1 % Normal 11.6-14.6 [facility] Comment on above: Performed By: #### L 500.4050, L300.3900, L100.0100, L300.4310, L3130.0010, L504.2610, L300.4700, L3100.3425 #### [facility] [address] [place], [address] Hematocrit (Bld) [Volume fraction] 36.0 % Low 40-54 [facility] Comment on above: Performed By: #### L 500.4050, L300.3900, L100.0100, L300.4310, L3130.0010, L504.2610, L300.4700, L3100.3425 #### [facility] [address] [place], [address] Hemoglobin (Bld) [Mass/Vol] 12.4 g/dL Low 13.0-16.5 [facility] Comment on above: Performed By: #### L 500.4050, L300.3900, L100.0100, L300.4310, L3130.0010, L504.2610, L300.4700, L3100.3425 #### [facility] [address] [place], [address] IG% 0.500 Normal 0.0-0.9 [facility] Comment on above: Result Comment: IG% - Immature Granulocytes (promyelocytes, myelocytes and metamyelocytes) > 1% indicates that a LEFT SHIFT is Present. Performed By: #### L 500.4050, L300.3900, L100.0100, L300.4310, L3130.0010, L504.2610, L300.4700, L3100.3425 #### [facility] [address] [place], [address] Lymphocytes/100 WBC (Bld) 16.1 % Low 19-41 [facility] Comment on above: Performed By: #### L 500.4050, L300.3900, L100.0100, L300.4310, L3130.0010, L504.2610, L300.4700, L3100.3425 #### [facility] [address] [place], [address] MCH (RBC) [Entitic mass] 30.5 pg Normal 27.0-32.0 [facility] Comment on above: Performed By: #### L 500.4050, L300.3900, L100.0100, L300.4310, L3130.0010, L504.2610, L300.4700, L3100.3425 #### [facility] [address] [place], [address] MCHC (RBC) [Mass/Vol] 34.4 g/dL Normal 32-36 [facility] Comment on above: Performed By: #### L 500.4050, L300.3900, L100.0100, L300.4310, L3130.0010, L504.2610, L300.4700, L3100.3425 #### [facility] [address] [place], [address] MCV (RBC) [Entitic vol] 88.5 fL Normal 80-94 [facility] Comment on above: Performed By: #### L 500.4050, L300.3900, L100.0100, L300.4310, L3130.0010, L504.2610, L300.4700, L3100.3425 #### [facility] [address] [place], [address] Monocytes/100 WBC (Bld) 6.9 % Normal 0-10 [facility] Comment on above: Performed By: #### L 500.4050, L300.3900, L100.0100, L300.4310, L3130.0010, L504.2610, L300.4700, L3100.3425 #### [facility] [address] [place], [address] Neutrophils/100 WBC (Bld) 75.9 % High 47-70 [facility] Comment on above: Performed By: #### L 500.4050, L300.3900, L100.0100, L300.4310, L3130.0010, L504.2610, L300.4700, L3100.3425 #### [facility] [address] [facility] [place], [address] Nucleated RBC (Bld) [#/Vol] 0 10*3/uL Normal 0-5 [facility] Comment on above: Performed By: #### L 500.4050, L300.3900, L100.0100, L300.4310, L3130.0010, L504.2610, L300.4700, L3100.3425 #### [facility] [address] [place], [address] Platelet mean volume (Bld) [Entitic vol] 9.4 fL Normal 6.2-12.0 [facility] Comment on above: Performed By: #### L 500.4050, L300.3900, L100.0100, L300.4310, L3130.0010, L504.2610, L300.4700, L3100.3425 #### [facility] [address] [place], [address] Platelets (Bld) [#/Vol] 166 10*3/uL Normal 150-450 [facility] Comment on above: Performed By: #### L 500.4050, L300.3900, L100.0100, L300.4310, L3130.0010, L504.2610, L300.4700, L3100.3425 #### [facility] [address] [place], [address] RBC (Bld) [#/Vol] 4.07 10*6/uL Low 4.6-6.2 [facility] Comment on above: Performed By: #### L 500.4050, L300.3900, L100.0100, L300.4310, L3130.0010, L504.2610, L300.4700, L3100.3425 #### [facility] [address] [place], [address] RDW SD 45.2 fl High 35.1-43.9 [facility] Comment on above: Performed By: #### L 500.4050, L300.3900, L100.0100, L300.4310, L3130.0010, L504.2610, L300.4700, L3100.3425 #### [facility] [address] [place], [address] WBC (Bld) [#/Vol] 3.9 10*3/uL Low 4.4-11.0 [facility] Comment on above: Performed By: #### L 500.4050, L300.3900, L100.0100, L300.4310, L3130.0010, L504.2610, L300.4700, L3100.3425 #### [facility] [address] [place], [address] Carbon dioxide measurementOr dered By: Reginaldo Nava on 04-04-2024 CO2 [Moles/Vol] 29.0 mmol/L 21.0-32.0 [facility] Chloride measurementOrdered By: Reginaldo Nava on 04-04-2024 Chloride [Moles/Vol] 101 mmol/L 98-107 [facility] Comprehensive Metabolic Prof ilon 04-04-2024 Albumin [Mass/Vol] 3.9 g/dL Normal 3.2-5.0 [facility] Comment on above: Order Comment: 1 Performed By: #### L 500.4050, L300.3900, L100.0100, L300.4310, L3130.0010, L504.2610, L300.4700, L3100.3425 #### [facility] [address] [place], [place], [id number] Albumin/Globulin [Mass ratio] 1.3 {ratio} Normal 0.9-2.4 [facility] Comment on above: Order Comment: 1 Performed By: #### L 500.4050, L300.3900, L100.0100, L300.4310, L3130.0010, L504.2610, L300.4700, L3100.3425 #### [facility] [address] [place], [address] ALK P 66 U/L Normal 45-117 [facility] Comment on above: Order Comment: 1 Performed By: #### L 500.4050, L300.3900, L100.0100, L300.4310, L3130.0010, L504.2610, L300.4700, L3100.3425 #### [facility] [address] [place], [address] ALT [Catalytic activity/Vol] 32 U/L Normal 16-61 [facility] Comment on above: Order Comment: 1 Performed By: #### L 500.4050, L300.3900, L100.0100, L300.4310, L3130.0010, L504.2610, L300.4700, L3100.3425 #### [facility] [address] [place], [address] AST [Catalytic activity/Vol] 27 U/L Normal 15-37 [facility] Comment on above: Order Comment: 1 Performed By: #### L 500.4050, L300.3900, L100.0100, L300.4310, L3130.0010, L504.2610, L300.4700, L3100.3425 #### [facility] [address] [place], [address] ([address] Bilirubin [Mass/Vol] 0.40 mg/dL Normal 0.20-1.00 [facility] Comment on above: Order Comment: 1 Result Comment: For patients on eltrombopag therapy, use of Dimension [place] TBIL is not recommended. Performed By: #### L 500.4050, L300.3900, L100.0100, L300.4310, L3130.0010, L504.2610, L300.4700, L3100.3425 #### [facility] [address] [place], [address] BUN/CRE 10.1 RATIO Normal 10-20 [facility] Comment on above: Order Comment: 1 Performed By: #### L 500.4050, L300.3900, L100.0100, L300.4310, L3130.0010, L504.2610, L300.4700, L3100.3425 #### [facility] [address] [place], [address] CA,Total 9.2 mg/dL Normal 8.5-10.1 [facility] Comment on above: Order Comment: 1 Performed By: #### L 500.4050, L300.3900, L100.0100, L300.4310, L3130.0010, L504.2610, L300.4700, L3100.3425 #### [facility] [address] [place], [address] Chloride [Moles/Vol] 101 mmol/L Normal 98-107 [facility] Comment on above: Order Comment: 1 Performed By: #### L 500.4050, L300.3900, L100.0100, L300.4310, L3130.0010, L504.2610, L300.4700, L3100.3425 #### [facility] [address] [place], [address] CO2 [Moles/Vol] 29.0 mmol/L Normal 21.0-32.0 [facility] Comment on above: Order Comment: 1 Performed By: #### L 500.4050, L300.3900, L100.0100, L300.4310, L3130.0010, L504.2610, L300.4700, L3100.3425 #### [facility] [address] [place], [address] Creatinine [Mass/Vol] 1.19 mg/dL Normal 0.70-1.30 [facility] Comment on above: Order Comment: 1 Result Comment: The validity of the calculated GFR GFRAA in patients over 70 years has not been determined. Clinical correlation is essential. Performed By: #### L 500.4050, L300.3900, L100.0100, L300.4310, L3130.0010, L504.2610, L300.4700, L3100.3425 #### [facility] [address] [place], [address] ECRCL 52.87 ml/min Normal [facility] Comment on above: Order Comment: 1 Performed By: #### L 500.4050, L300.3900, L100.0100, L300.4310, L3130.0010, L504.2610, L300.4700, L3100.3425 #### [facility] [address] [place], [place], [id number] EST GFR - AA 78 mL/min Normal >60 [facility] Comment on above: Order Comment: 1 Result Comment: Afri can Prydeinig GFR Calc Performed By: #### L 500.4050, L300.3900, L100.0100, L300.4310, L3130.0010, L504.2610, L300.4700, L3100.3425 #### [facility] [address] [place], [address] GAP 6 Normal 5-15 [facility] Comment on above: Order Comment: 1 Performed By: #### L 500.4050, L300.3900, L100.0100, L300.4310, L3130.0010, L504.2610, L300.4700, L3100.3425 #### [facility] [address] [place], [address] GFR/1.73 sq M.predicted among non-blacks MDRD (S/P/Bld) [Vol rate/Area] 64 mL/min/{1.73_m2} Normal >60 [facility] Comment on above: Order Comment: 1 Result Comment: Non- GFR Calc Performed By: #### L 500.4050, L300.3900, L100.0100, L300.4310, L3130.0010, L504.2610, L300.4700, L3100.3425 #### [facility] [address] [place], [place], [id number] [phone] Globulin (S) [Mass/Vol] 3.1 g/dL Normal 2.2-4.2 [facility] Comment on above: Order Comment: 1 Performed By: #### L 500.4050, L300.3900, L100.0100, L300.4310, L3130.0010, L504.2610, L300.4700, L3100.3425 #### [facility] [address] [place], [address] Glucose [Mass/Vol] 140 mg/dL High 74-106 [facility] Comment on above: Order Comment: 1 Result Comment: Fast ing Glucose result greater than or equal to 126 mg/dL suggests DIABETES MELLITUS per A.D.A. criteria. Performed By: #### L 500.4050, L300.3900, L100.0100, L300.4310, L3130.0010, L504.2610, L300.4700, L3100.3425 #### [facility] [address] [place], [address] Potassium [Moles/Vol] 4.2 mmol/L Normal 3.5-5.1 [facility] Comment on above: Order Comment: 1 Performed By: #### L 500.4050, L300.3900, L100.0100, L300.4310, L3130.0010, L504.2610, L300.4700, L3100.3425 #### [facility] [address] [place], [address] Sodium [Moles/Vol] 136 mmol/L Normal 136-145 [facility] Comment on above: Order Comment: 1 Performed By: #### L 500.4050, L300.3900, L100.0100, L300.4310, L3130.0010, L504.2610, L300.4700, L3100.3425 #### [facility] [address] [place], [address] T PROT 7.0 g/dL Normal 6.4-8.2 [facility] Comment on above: Order Comment: 1 Performed By: #### L 500.4050, L300.3900, L100.0100, L300.4310, L3130.0010, L504.2610, L300.4700, L3100.3425 #### [facility] [address] [place], [address] Urea nitrogen [Mass/Vol] 12 mg/dL Normal 7-18 [facility] Comment on above: Order Comment: 1 Performed By: #### L 500.4050, L300.3900, L100.0100, L300.4310, L3130.0010, L504.2610, L300.4700, L3100.3425 #### [facility] [address] [place], [address] Eosinophil percentageOrdered By: Reginaldo Nava on 04-04-2024 Eosinophils/100 WBC (Bld) 0.3 % 0-5 [facility] Erythrocyte distribution wid th ratioOrdered By: Reginaldo Nava on 04-04-2024 Erythrocyte distribution width (RBC) [Ratio] 14.1 % 11.6-14.6 [facility] Erythrocyte distribution wid th standard deviationOrdered By: Reginaldo Nava on 04-04-2024 Erythrocyte distribution width (RBC) [Entitic vol] 45.2 fL High 35.1-43.9 [facility] Estimated glomerular filtrat ion rate (GFR) AmericanOrdered By: Reginaldo Nava on 04-04-2024 Estimated GFR (MDRD) Amer 78 mL/min >60 [facility] Comment on above: GFR Calc Estimation of creatinine reinaldo aranceOrdered By: Reginaldo Nava on 04-04-2024 Estimated Creatinine Clearance Calc 52.87 ml/min [facility] Fibrinogenon 04-04-2024 FIBRINOGEN 288 mg/dl Normal [facility] Comment on above: Performed By: #### L 500.4050, L300.3900, L100.0100, L300.4310, L3130.0010, L504.2610, L300.4700, L3100.3425 #### [facility] [address] [place], [address] Fibrinogen measurementOrdere d By: Reginaldo Nava on 04-04-2024 Fibrinogen 288 mg/dl -44 [facility] Gamma globulin Elph [Mass/Vo l]Ordered By: Reginaldo Nava on 04-04-2024 Gamma Globulins ([place]) 0.7 g/dL 0.4-1.8 [facility] Glomerular filtration rate ( GFR) estimationOrdered By: Reginaldo Nava on 04-04-2024 Estimated GFR (MDRD) Non-Af Amer 64 mL/min >60 [facility] Comment on above: Non- GFR Calc Glucose measurementOrdered B y: Reginaldo Nava on 04-04-2024 Glucose [Mass/Vol] 140 mg/dL High 74-106 [facility] Comment on above: Fasting Glucose resu lt greater than or equal to 126 mg/dL suggests DIABETES MELLITUS per A.D.A. criteria. Hematocrit Auto (Bld) [Volum e fraction]Ordered By: Reginaldo Nava on 04-04-2024 Hematocrit (Bld) [Volume fraction] 36.0 % Low 40-54 [facility] Hemoglobin measurementOrdere d By: Reginaldo Nava on 04-04-2024 Hemoglobin (Bld) [Mass/Vol] 12.4 g/dL Low 13.0-16.5 [facility] IgA [Mass/Vol]Ordered By: Linnea Nava on 04-04-2024 Immunoglobulin A 160 mg/dL 61-437 [facility] IgG [Mass/Vol]Ordered By: Linnea Nava on 04-04-2024 Immunoglobulin G 699 mg/dL 603-1613 [facility] Immature granulocytes/100 WB C Auto (Bld)Ordered By: Reginaldo Nava on 04-04-2024 Immature granulocytes/100 WBC (Bld) 0.500 % 0.0-0.9 [facility] Comment on above: IG% - Immature Granu locytes (promyelocytes, myelocytes and metamyelocytes) > 1% indicates that a LEFT SHIFT is Present. Immunoglobulin M measurement Ordered By: Reginaldo Nava on 04-04-2024 Immunoglobulin M 20 mg/dL 20-172 [facility] Comment on above: Result confirmed on concentration. Immunoglobulin light chains. kappa [Mass/Vol]Ordered By: Reginaldo Nava on 04-04-2024 Free [place] Light Chains, Quant 16.3 mg/L 3.3-19.4 [facility] Immunoglobulin light chains. kappa/Immunoglobulin light chains.lambda (S) [Mass ratio]Ordered By: Reginaldo Nava on 04-04-2024 Free [place]/Lambda Light Chain Ratio 1.46 0.26-1.65 [facility] Comment on above: Performed at: [address] [id number] Director: Jose Angel Marks PhD, Phone: [phone] International normalized rat io (INR) calculationOrdered By: Reginaldo Nava on 04-04-2024 INR Coag (Bld) [Relative time] 1.0 {INR} [facility] Interpretation IEP [Interp]O rdered By: Reginaldo Nava on 04-04-2024 Immunofixation Screen Comment . [facility] Comment on above: No monoclonality det ected. Interpretation of serum or p lasma protein pattern by immunofixation (narrative resultOrdered By: Reginaldo aNva on 04-04-2024 Protein Fractions Immunofixation Xavi [Interp] Not Observed g/dL Not Observed [facility] LDHon 04-04-2024 LDH 260 U/L High 87-241 [facility] Comment on above: Order Comment: 1 Performed By: #### L 500.4050, L300.3900, L100.0100, L300.4310, L3130.0010, L504.2610, L300.4700, L3100.3425 #### [facility] [address] [place], [address] Laboratory - Chemistry and C hemistry - challengeOrdered By: Reginaldo Nava on 04-04-2024 AST [Catalytic activity/Vol] 27 U/L 15-37 [facility] Lactate dehydrogenase (LDH) measurementOrdered By: Reginaldo Nava on 04-04-2024 LDH [Catalytic activity/Vol] 260 U/L High 87-241 [facility] Lambda free light chain ioana urementOrdered By: Reginaldo Nava on 04-04-2024 Free [place] Light Chains, Quant 11.2 mg/L 5.7-26.3 [facility] Lymphocytes Auto (Unsp spec) [#/Vol]Ordered By: Reginaldo Nava on 04-04-2024 Lymphocytes (Bld) [#/Vol] 0.63 10*3/uL Low 0.83-4.51 [facility] Lymphocytes/100 WBC Auto (Un sp spec)Ordered By: Reginaldo Nava on 04-04-2024 Lymphocytes/100 WBC (Bld) 16.1 % Low 19-41 [facility] MCV (mean corpuscular volume ) determinationOrdered By: Reginaldo Nava on 04-04-2024 MCV (RBC) [Entitic vol] 88.5 fL 80-94 [facility] Mean corpuscular hemoglobin (MCH) determinationOrdered By: Reginaldo Nava on 04-04-2024 MCH (RBC) [Entitic mass] 30.5 pg 27.0-32.0 [facility] Mean corpuscular hemoglobin concentration (MCHC) determinationOrdered By: Reginaldo Nava on 04-04-2024 MCHC (RBC) [Mass/Vol] 34.4 g/dL 32-36 [facility] Mean platelet volume determi nationOrdered By: Reginaldo Nava on 04-04-2024 Platelet mean volume (Bld) [Entitic vol] 9.4 fL 6.2-12.0 [facility] Monocyte percentageOrdered B y: Reginaldo Nava on 04-04-2024 Monocytes/100 WBC (Bld) 6.9 % 0-10 [facility] Neutrophil percentageOrdered By: Reginaldo Nava on 04-04-2024 Neutrophils/100 WBC (Bld) 75.9 % High 47-70 [facility] No Panel InformationOrdered By: Reginaldo Nava on 04-04-2024 Addendum Document Comment . [facility] Comment on above: Protein electrophore sis scan will follow via computer,mail, or car usher delivery. Nucleated red blood cell per centageOrdered By: Reginaldo Nava on 04-04-2024 Nucleated RBC/100 WBC (Bld) [Ratio] 0 % 0-5 [facility] Oncology Visit Reporton 03-15 Oncology Visit Report [facility] [address] [place] [address] OFFICE VISIT Date of Service: 04/04/24 1325 MR#: [id number] Acct: [id number] Name: VAUGHN DINERO Rep #: [id number] : 1955 From: Reginaldo Nava MD Age/Sex: 68/M Location: [facility] [place] Status: Signed HPI Subjective Date of Service [...] comes for follow up. He feels well. [facility] Medical History Ischemic cardiomyopathy Tear of right rotator cuff Elevated serum creatinine Anemia Foraminal stenosis of cervical region Rotator cuff tendonitis Inflammation of joint of right shoulder region Right shoulder pain Tear of medial meniscus of left knee Effusion of knee joint right Essential hypertension Anterior myocardial infarction (11/09/20) Atherosclerotic heart disease of [place] coronary artery without angina pectoris ADHD Mechanical [...] release 2 (more content not included)... Normal [facility] Partial Thromboplast Timeon 04-04-2024 aPTT Coag (Bld) [Time] 27.2 s Normal 24.1-36.2 [facility] Comment on above: Performed By: #### L 500.4050, L300.3900, L100.0100, L300.4310, L3130.0010, L504.2610, L300.4700, L3100.3425 #### [facility] [address] [place], [address] Platelet countOrdered By: Linnea Nava on 04-04-2024 Platelets (Bld) [#/Vol] 166 10*3/uL 150-450 [facility] Potassium measurementOrdered By: Reginaldo Nava on 04-04-2024 Potassium [Moles/Vol] 4.2 mmol/L 3.5-5.1 [facility] Protein Fractions Immunofixa tion Xavi [Interp]Ordered By: Reginaldo Nava on 04-04-2024 M-Tawanda ([place]) Not Observed g/dL Not Observed [facility] Prothrombin Time w/INRon INR Coag (PPP) [Relative time] 1.0 {INR} Normal [facility] Comment on above: Performed By: #### L 500.4050, L300.3900, L100.0100, L300.4310, L3130.0010, L504.2610, L300.4700, L3100.3425 #### [facility] [address] [place], [address] PT Coag (PPP) [Time] 13.6 s Normal 11.7-14.9 [facility] Comment on above: Performed By: #### L 500.4050, L300.3900, L100.0100, L300.4310, L3130.0010, L504.2610, L300.4700, L3100.3425 #### [facility] [address] [place], [place], [id number] Prothrombin timeOrdered By: Reginaldo Nava on 04-04-2024 PT Coag (PPP) [Time] 13.6 s 11.7-14.9 [facility] RBC Auto (Bld) [#/Vol]Ordere d By: Reginaldo Nava on 04-04-2024 RBC (Bld) [#/Vol] 4.07 10*6/uL Low 4.6-6.2 [facility] Serum albumin/globulin ratio Ordered By: Reginaldo Nava on 04-04-2024 Albumin/Globulin (ALINA) 1.5 0.7-1.7 [facility] Serum anion gap measurementO rdered By: Reginaldo Nava on 04-04-2024 Anion gap [Moles/Vol] 6 mmol/L 5-15 [facility] Serum globulin measurement ( mass/volume)Ordered By: Reginaldo Nava on 04-04-2024 Globulin (S) [Mass/Vol] 2.6 g/dL 2.2-3.9 [facility] Serum immunoglobulin kappa l ight chains/immunoglobulin lambda light chains mass ratioOrdered By: Reginaldo Nava on 04-04-2024 Immunoglobulin light chains.kappa/Immunoglob ulin light chains.lambda (S) [Mass ratio] 1.46 0.26-1.65 [facility] Comment on above: Performed at: [address] [id number] Director: Jose Angel Marks PhD, Phone: [phone] Serum or plasma IgA measurem ent (mass/volume)Ordered By: Reginaldo Nava on 04-04-2024 IgA [Mass/Vol] 160 mg/dL 61-437 [facility] Serum or plasma IgG measurem ent (mass/volume)Ordered By: Reginaldo Nava on 04-04-2024 IgG [Mass/Vol] 699 mg/dL 603-1613 [facility] Serum or plasma alanine cowan otransferase (ALT) measurementOrdered By: Reginaldo Nava on 04-04-2024 ALT [Catalytic activity/Vol] 32 U/L 16-61 [facility] Serum or plasma albumin ioana urement (mass/volume)Ordered By: Reginaldo Nava on 04-04-2024 Albumin [Mass/Vol] 3.9 g/dL 3.2-5.0 [facility] Serum or plasma alkaline abdirizak sphatase measurementOrdered By: Reginaldo Nava on 04-04-2024 ALP [Catalytic activity/Vol] 66 U/L 45-117 [facility] Serum or plasma alpha 1 glob ulin measurement by electrophoresis (mass/volume)Ordered By: Reginaldo Nava on 04-04-2024 Alpha 1 globulin Elph [Mass/Vol] 0.3 g/dL 0.0-0.4 [facility] Alpha 1 globulin Elph [Mass/Vol] 0.6 g/dL 0.4-1.0 [facility] Serum or plasma beta globuli n measurement by electrophoresis (mass/volume)Ordered By: Reginaldo aNva on 04-04-2024 Beta globulin Elph [Mass/Vol] 1.0 g/dL 0.7-1.3 [facility] Serum or plasma calcium ioana urement (mass/volume)Ordered By: Reginaldo Nava on 04-04-2024 Calcium [Mass/Vol] 9.2 mg/dL 8.5-10.1 [facility] Serum or plasma creatinine m easurement (mass/volume)Ordered By: Reginaldo Nava on 04-04-2024 Creatinine [Mass/Vol] 1.19 mg/dL 0.70-1.30 [facility] Comment on above: The validity of the calculated GFR & GFRAA in patients over 70 years has not been determined. Clinical correlation is essential. Serum or plasma gamma globul in measurement by electrophoresis (mass/volume)Ordered By: Reginaldo Nava on 04-04-2024 Gamma globulin Elph [Mass/Vol] 0.7 g/dL 0.4-1.8 [facility] Serum or plasma immunoelectr ophoresis interpretation (nominal result)Ordered By: Reginaldo Nava on 04-04-2024 Interpretation IEP [Interp] Comment . [facility] Comment on above: No monoclonality det ected. Serum or plasma immunoglobul in kappa light chains measurement (mass/volume)Ordered By: Reginaldo Nava on 04-04-2024 Immunoglobulin light chains.kappa [Mass/Vol] 16.3 mg/L 3.3-19.4 [facility] Serum or plasma protein ioana urement (mass/volume)Ordered By: Reginaldo Nava on 04-04-2024 Protein [Mass/Vol] 6.4 g/dL 6.0-8.5 [facility] Serum or plasma urea nitroge n measurement (mass/volume)Ordered By: Reginaldo Nava on 04-04-2024 Urea nitrogen [Mass/Vol] 12 mg/dL 7-18 [facility] Sodium levelOrdered By: Jacques Nava on 04-04-2024 Sodium [Moles/Vol] 136 mmol/L 136-145 [facility] Total proteinOrdered By: Jose Nava on 04-04-2024 Protein [Mass/Vol] 7.0 g/dL 6.4-8.2 [facility] White blood cell (WBC) count Ordered By: Reginaldo Nava on 04-04-2024 WBC (Bld) [#/Vol] 3.9 10*3/uL Low 4.4-11.0 [facility] aPTT Coag (PPP) [Time]Ordere d By: Reginaldo Nava on 04-04-2024 aPTT Coag (Bld) [Time] 27.2 s 24.1-36.2 [facility] Inital Evaluation (1) - PTon 03-29-2024 Inital Evaluation (1) - PT [facility] Physical Therapy Health[address] [place] [address] / REHABILITATION SERVICES INITIAL EVALUATION MR#: [id number] Acct: [id number] Name: VAUGHN DINERO Rep #: [id number] : 1955 68 From: Cam Santillan PT, [...] to be FAXED BACK to us at [phone] for Medicare purposes. For Medicare only, by signing this I certify the plan of care. Please let me know if there are questions or concerns regarding this plan of care. Physician Signature: Date:__ 03/29/24 1026 CC: Dr. Reginaldo Blank DO; Dr. True Ibarra DO [facility] Signed Normal [facility] Cardiology Visit Reporton Cardiology Visit Report [facility] [address] [place] [address] OFFICE VISIT Date of Service: 03/22/24 MR#: [id number] Acct: [id number] Name: VAUGHN DINERO Rep #: [id number] : 1955 Provider: DONG perez Age/Sex: 68/M Location: [facility] Status: Signed HPI HPI History of [...] NIBP Intake Visit Reasons: 1 Y FU Photography Coordinator Required: No Is patient in pain?: No [...] (Updated 03/22/24 @ 08:51 by Cody Ryder MENTAL HEALTH COORDINATOR, MENTAL HEALTH COORDINATOR-C) Ischemic cardiomyopathy Tear of right rotator cuff Elevated serum creatinine Anemia Foraminal stenosis of cervical region Rotator cuff tendonitis Inflammation of joint of right shoulder region Right shoulder pain Tear of medial meniscus of left knee Effusion of knee joint right Essential hypertension Anterior myocardial infarction (11/09/20) Atherosclerotic heart disease of [place] coronary artery without angina pectoris ADHD Mechanical pain of left knee Bunion of great toe of right foot Hammer toe of right foot GERD (gastroesophageal reflux disease) 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 Normal [facility] Knee 3 Viewson 03-21-2024 Knee 3 Views [facility]iology [address] [place] [address] Knee 3 Views MR#: [id number] Acct: [id number] Name: VAUGHN DINERO Rep #: [id number] : 1955 M 68 From: Marky Cooper MD PCP: Dr. True Ibarra DO Status: DEP AMB Study: Knee 3 Views Date of Exam: 03/21/24 Exam# [id number] Ordering Dr: Reginaldo Blank DO [id number] STUDY: X-RAY - RIGHT KNEE REASON FOR [...] Reginaldo Blank DO; Dr. True Ibarra DO Director Patient Accounting: Signed Normal [facility] Orthopedic Visit Reporton Orthopedic Visit Report [facility] [address] [place] [address] [address] [place] [address] OFFICE VISIT Date of Service: 03/21/24 MR#: [id number] Acct: [id number] Name: VAUGHN DINERO Rep #: [id number] : 1955 Provider: Dr. Reginaldo marie DO Age/Sex: 68/M Location: [facility] [place] Status: Signed Intake Vital Signs 09/01/23 14:57 [...] myocardial infarction (11/09/20) Atherosclerotic heart disease of [place] coronary artery without angina pectoris ADHD Mechanical [...] He de (more content not included)... Normal [facility] CBC W/Diff, Automatedon 01-12 Absolute Lymph 1.04 X10 3/uL Normal 0.83-4.51 [facility] Comment on above: Performed By: #### L 100.0100, L500.4050 ####[facility] [address] [place], [address] Absolute Neut 2.0 X10 3/uL Normal 2.0-7.7 [facility] Comment on above: Performed By: #### L 100.0100, L500.4050 ####[facility] [address] [place], [address] Basophils/100 WBC (Bld) 0.9 % Normal 0-1 [facility] Comment on above: Performed By: #### L 100.0100, L500.4050 ####[facility] [address] [place], [address] Eosinophils/100 WBC (Bld) 2.0 % Normal 0-5 [facility] Comment on above: Performed By: #### L 100.0100, L500.4050 ####[facility] [address] [place], [address] Erythrocyte distribution width (RBC) [Ratio] 14.3 % Normal 11.6-14.6 [facility] Comment on above: Performed By: #### L 100.0100, L500.4050 ####[facility] [address] [place], [address] Hematocrit (Bld) [Volume fraction] 36.3 % Low 40-54 [facility] Comment on above: Performed By: #### L 100.0100, L500.4050 ####[facility] [address] [place], [address] Hemoglobin (Bld) [Mass/Vol] 12.4 g/dL Low 13.0-16.5 [facility] Comment on above: Performed By: #### L 100.0100, L500.4050 ####[facility] [address] [place], [address] IG% 0.300 Normal 0.0-0.9 [facility] Comment on above: Result Comment: IG% - Immature Granulocytes (promyelocytes, myelocytes and metamyelocytes) > 1% indicates that a LEFT SHIFT is Present. Performed By: #### L 100.0100, L500.4050 ####[facility] [address] [place], [address] Lymphocytes/100 WBC (Bld) 29.5 % Normal 19-41 [facility] Comment on above: Performed By: #### L 100.0100, L500.4050 ####[facility] [address] [place], [address] MCH (RBC) [Entitic mass] 30.4 pg Normal 27.0-32.0 [facility] Comment on above: Performed By: #### L 100.0100, L500.4050 ####[facility] [address] [place], [address] MCHC (RBC) [Mass/Vol] 34.2 g/dL Normal 32-36 [facility] Comment on above: Performed By: #### L 100.0100, L500.4050 ####[facility] [address] [place], [address] MCV (RBC) [Entitic vol] 89.0 fL Normal 80-94 [facility] Comment on above: Performed By: #### L 100.0100, L500.4050 ####[facility] [address] [place], [address] Monocytes/100 WBC (Bld) 11.4 % High 0-10 [facility] Comment on above: Performed By: #### L 100.0100, L500.4050 ####[facility] [address] [place], [address] Neutrophils/100 WBC (Bld) 55.9 % Normal 47-70 [facility] Comment on above: Performed By: #### L 100.0100, L500.4050 ####[facility] [address] [place], [address] Nucleated RBC (Bld) [#/Vol] 0 10*3/uL Normal 0-5 [facility] Comment on above: Performed By: #### L 100.0100, L500.4050 ####[facility] [address] [place], [address] Platelet mean volume (Bld) [Entitic vol] 9.7 fL Normal 6.2-12.0 [facility] Comment on above: Performed By: #### L 100.0100, L500.4050 ####[facility] [address] [place], [address] Platelets (Bld) [#/Vol] 174 10*3/uL Normal 150-450 [facility] Comment on above: Performed By: #### L 100.0100, L500.4050 ####[facility] [address] [place], [address] RBC (Bld) [#/Vol] 4.08 10*6/uL Low 4.6-6.2 [facility] Comment on above: Performed By: #### L 100.0100, L500.4050 ####[facility] [address] [place], [address] RDW SD 45.6 fl High 35.1-43.9 [facility] Comment on above: Performed By: #### L 100.0100, L500.4050 ####[facility] [address] [place], [address] WBC (Bld) [#/Vol] 3.5 10*3/uL Low 4.4-11.0 [facility] Comment on above: Performed By: #### L 100.0100, L500.4050 ####[facility] [address] [place], [address] Comprehensive Metabolic Prof [facility] 01-31-2024 Albumin [Mass/Vol] 3.6 g/dL Normal 3.2-5.0 [facility] Comment on above: Performed By: #### L 100.0100, L500.4050 ####[facility] [address] [place], [address] Albumin/Globulin [Mass ratio] 1.3 {ratio} Normal 0.9-2.4 [facility] Comment on above: Performed By: #### L 100.0100, L500.4050 ####[facility] [address] [place], [address] ALK P 66 U/L Normal 45-117 [facility] Comment on above: Performed By: #### L 100.0100, L500.4050 ####[facility] [address] [place], [address] ALT [Catalytic activity/Vol] 36 U/L Normal 16-61 [facility] Comment on above: Performed By: #### L 100.0100, L500.4050 ####[facility] [address] [place], [address] AST [Catalytic activity/Vol] 36 U/L Normal 15-37 [facility] Comment on above: Performed By: #### L 100.0100, L500.4050 ####[facility] [address] [place], [address] Bilirubin [Mass/Vol] 0.60 mg/dL Normal 0.20-1.00 [facility] Comment on above: Result Comment: For patients on eltrombopag therapy, use of Dimension [place] TBIL is not recommended. Performed By: #### L 100.0100, L500.4050 ####[facility] [address] [place], [address] BUN/CRE 15.4 RATIO Normal 10-20 [facility] Comment on above: Performed By: #### L 100.0100, L500.4050 ####[facility] [address] [place], [address] CA,Total 8.6 mg/dL Normal 8.5-10.1 [facility] Comment on above: Performed By: #### L 100.0100, L500.4050 ####[facility] [address] [place], [address] Chloride [Moles/Vol] 105 mmol/L Normal 98-107 [facility] Comment on above: Performed By: #### L 100.0100, L500.4050 ####[facility] [address] [place], [address] CO2 [Moles/Vol] 27.0 mmol/L Normal 21.0-32.0 [facility] Comment on above: Performed By: #### L 100.0100, L500.4050 ####[facility] [address] [place], [address] Creatinine [Mass/Vol] 1.04 mg/dL Normal 0.70-1.30 [facility] Comment on above: Result Comment: The validity of the calculated GFR GFRAA in patients over 70 years has not been determined. Clinical correlation is essential. Performed By: #### L 100.0100, L500.4050 ####[facility] [address] [place], [address] EST GFR - AA 91 mL/min Normal >60 [facility] Comment on above: Result Comment: Afri can Prydeinig GFR Calc Performed By: #### L 100.0100, L500.4050 ####[facility] [address] [place], [address] GAP 5 Normal 5-15 [facility] Comment on above: Performed By: #### L 100.0100, L500.4050 ####[facility] [address] [place], [address] GFR/1.73 sq M.predicted among non-blacks MDRD (S/P/Bld) [Vol rate/Area] 75 mL/min/{1.73_m2} Normal >60 [facility] Comment on above: Result Comment: Non- GFR Calc Performed By: #### L 100.0100, L500.4050 ####[facility] [address] [place], [address] Globulin (S) [Mass/Vol] 2.7 g/dL Normal 2.2-4.2 [facility] Comment on above: Performed By: #### L 100.0100, L500.4050 ####[facility] [address] [place], [address] Glucose [Mass/Vol] 116 mg/dL High 74-106 [facility] Comment on above: Result Comment: Fast ing Glucose result from 100 to 125 mg/dL suggests IMPAIRED HOMEOSTASIS per A.D.A. criteria. Performed By: #### L 100.0100, L500.4050 ####[facility] [address] [place], [address] Potassium [Moles/Vol] 3.7 mmol/L Normal 3.5-5.1 [facility] Comment on above: Performed By: #### L 100.0100, L500.4050 ####[facility] [address] [place], [address] Sodium [Moles/Vol] 138 mmol/L Normal 136-145 [facility] Comment on above: Performed By: #### L 100.0100, L500.4050 ####[facility] [address] [place], [address] T PROT 6.3 g/dL Low 6.4-8.2 [facility] Comment on above: Performed By: #### L 100.0100, L500.4050 ####[facility] [address] [place], [address] Urea nitrogen [Mass/Vol] 16 mg/dL Normal 7-18 [facility] Comment on above: Performed By: #### L 100.0100, L500.4050 ####[facility] [address] [place], [address] Ferritin measurementOrdered By: Reginaldo Nava on 09-01-2023 Ferritin [Mass/Vol] 76 ng/mL 26-388 [facility] Folic acid measurementOrdere d By: Reginaldo Nava on 09-01-2023 Folate 67.70 ng/mL High 3.1-55.4 [facility] Iron (Unsp spec) [Mass/Mass] Ordered By: eRginaldo Nava on 09-01-2023 Iron [Mass/Vol] 89 ug/dL 65-175 [facility] Iron measurement (mass/mass) Ordered By: Reginaldo Nava on 09-01-2023 Iron (Unsp spec) [Mass/Mass] 89 ug/dL 65-175 [facility] Iron saturation [Mass fracti on]Ordered By: Reginaldo Nava on 09-01-2023 Iron Saturation 28.3 % 15.0-55.0 [facility] Serum or plasma iron saturat ion measurement (mass fraction)Ordered By: Reginaldo Nava on 09-01-2023 Iron saturation [Mass fraction] 28.3 % 15.0-55.0 [facility] TIBCOrdered By: Reginaldo Nava on 09-01-2023 Total Iron Binding Capacity 315 ug/dL 250-450 [facility] Vitamin B12 measurementOrder ed By: Reginaldo Nava on 09-01-2023 Cobalamin (Vitamin B12) [Mass/Vol] 500 pg/mL 211-911 [facility] Absolute lymphocyte countOrd ered By: Holly Arzola on 07-06-2023 Lymphocytes Auto (Unsp spec) [#/Vol] 0.48 10*3/uL 0.83-4.51 [facility] Automated lymphocyte count a s percentage of total leukocytesOrdered By: Holly Arzola on 07-06-2023 Lymphocytes/100 WBC Auto (Unsp spec) 11.2 % 19-41 [facility] Basophil percentageOrdered B y: Holly Arzola on 07-06-2023 Basophils/100 WBC (Bld) 0.5 % 0-1 [facility] Bilirubin [Mass/Vol] 0.30 mg/dL 0.20-1.00 [facility] Comment on above: For patients on eltr ombopag therapy, use of Dimension [place] TBIL is not recommended. Chloride [Moles/Vol] 102 mmol/L 98-107 [facility] Eosinophils/100 WBC (Bld) 0.5 % 0-5 [facility] Glucose [Mass/Vol] 147 mg/dL 74-106 [facility] Comment on above: Fasting Glucose resu lt greater than or equal to 126 mg/dL suggests DIABETES MELLITUS per A.D.A. criteria. Hemoglobin (Bld) [Mass/Vol] 12.2 g/dL 13.0-16.5 [facility] Monocytes/100 WBC (Bld) 4.0 % 0-10 [facility] Neutrophils (Bld) [#/Vol] 3.6 10*3/uL 2.0-7.7 [facility] Neutrophils/100 WBC (Bld) 83.6 % 47-70 [facility] Potassium [Moles/Vol] 4.2 mmol/L 3.5-5.1 [facility] Protein [Mass/Vol] 6.8 g/dL 6.4-8.2 [facility] Sodium [Moles/Vol] 135 mmol/L 136-145 [facility] WBC (Bld) [#/Vol] 4.3 10*3/uL 4.4-11.0 [facility] Determination of erythrocyte mean corpuscular volume (MCV)Ordered By: Holly Arzola on 07-06-2023 MCV (RBC) [Entitic vol] 92.4 fL 80-94 [facility] Erythrocyte distribution wid th ratioOrdered By: Holly Arzola on 07-06-2023 Erythrocyte distribution width (RBC) [Ratio] 13.7 % 11.6-14.6 [facility] Erythrocyte distribution wid th standard deviationOrdered By: Holly Arzola on 07-06-2023 Erythrocyte distribution width (RBC) [Entitic vol] 46.3 fL 35.1-43.9 [facility] Hematocrit Auto (Bld) [Volum e fraction]Ordered By: Holly Arzola on 07-06-2023 Hematocrit (Bld) [Volume fraction] 36.3 % 40-54 [facility] Immature granulocytes/100 WB C Auto (Bld)Ordered By: Holly Arzola on 07-06-2023 Immature granulocytes/100 WBC (Bld) 0.200 % 0.0-0.9 [facility] Comment on above: IG% - Immature Granu locytes (promyelocytes, myelocytes and metamyelocytes) > 1% indicates that a LEFT SHIFT is Present. Laboratory - Chemistry and C hemistry - challengeOrdered By: Holly Arzola on 07-06-2023 Albumin/Globulin [Mass ratio] 1.2 {ratio} 0.9-2.4 [facility] ALP [Catalytic activity/Vol] 65 U/L 45-117 [facility] ALT [Catalytic activity/Vol] 31 U/L 16-61 [facility] CO2 [Moles/Vol] 28.0 mmol/L 21.0-32.0 [facility] Globulin (S) [Mass/Vol] 3.1 g/dL 2.2-4.2 [facility] Urea nitrogen/Creatinine [Mass ratio] 10.9 mg/mg 10-20 [facility] Laboratory - Hematology and Cell countsOrdered By: Holly Arzola on 07-06-2023 MCH (RBC) [Entitic mass] 31.0 pg 27.0-32.0 [facility] MCHC (RBC) [Mass/Vol] 33.6 g/dL 32-36 [facility] Nucleated RBC/100 WBC (Bld) [Ratio] 0 % 0-5 [facility] Platelet mean volume (Bld) [Entitic vol] 9.7 fL 6.2-12.0 [facility] Platelets (Bld) [#/Vol] 238 10*3/uL 150-450 [facility] No Panel InformationOrdered By: Holly Arzola on 07-06-2023 Estimated GFR (MDRD) Amer 85 mL/min >60 [facility] Comment on above: GFR Calc Estimated GFR (MDRD) Non-Af Amer 71 mL/min >60 [facility] Comment on above: Non- GFR Calc RBC Auto (Bld) [#/Vol]Ordere d By: Holly Arzola on 07-06-2023 RBC (Bld) [#/Vol] 3.93 10*6/uL 4.6-6.2 [facility] Serum or plasma calcium ioana urement (mass/volume)Ordered By: Holly Arzola on 07-06-2023 Calcium [Mass/Vol] 9.2 mg/dL 8.5-10.1 [facility] Serum or plasma creatinine m easurement (mass/volume)Ordered By: Holly Arzola on 07-06-2023 Creatinine [Mass/Vol] 1.10 mg/dL 0.70-1.30 [facility] Comment on above: The validity of the calculated GFR & GFRAA in patients over 70 years has not been determined. Clinical correlation is essential. Serum or plasma urea nitroge n measurement (mass/volume)Ordered By: Holly Arzola on 07-06-2023 Urea nitrogen [Mass/Vol] 12 mg/dL 7-18 [facility] Thin prep Papanicolaou smear with manual screeningOrdered By: Holly Arzola on 07-06-2023 Thin prep Papanicolaou smear with manual screening 3.7 g/dL 3.2-5.0 [facility] Thin prep Papanicolaou smear with manual screening 28 U/L 15-37 [facility] Thin prep Papanicolaou smear with manual screening 5 5-15 [facility] Absolute lymphocyte countOrd ered By: Holly Arzola on 05-10-2023 Lymphocytes Auto (Unsp spec) [#/Vol] 0.51 10*3/uL 0.83-4.51 [facility] Automated lymphocyte count a s percentage of total leukocytesOrdered By: Holly Arzola on 05-10-2023 Lymphocytes/100 WBC Auto (Unsp spec) 10.4 % 19-41 [facility] Basophil percentageOrdered B y: Holly Arzola on 05-10-2023 Basophils/100 WBC (Bld) 0.2 % 0-1 [facility] Bilirubin [Mass/Vol] 0.60 mg/dL 0.20-1.00 [facility] Comment on above: For patients on eltr ombopag therapy, use of Dimension [place] TBIL is not recommended. Chloride [Moles/Vol] 107 mmol/L 98-107 [facility] Eosinophils/100 WBC (Bld) 0.0 % 0-5 [facility] Glucose [Mass/Vol] 133 mg/dL 74-106 [facility] Comment on above: Fasting Glucose resu lt greater than or equal to 126 mg/dL suggests DIABETES MELLITUS per A.D.A. criteria. Hemoglobin (Bld) [Mass/Vol] 12.4 g/dL 13.0-16.5 [facility] Monocytes/100 WBC (Bld) 2.7 % 0-10 [facility] Neutrophils (Bld) [#/Vol] 4.2 10*3/uL 2.0-7.7 [facility] Neutrophils/100 WBC (Bld) 86.5 % 47-70 [facility] Potassium [Moles/Vol] 4.2 mmol/L 3.5-5.1 [facility] Protein [Mass/Vol] 7.1 g/dL 6.4-8.2 [facility] Sodium [Moles/Vol] 138 mmol/L 136-145 [facility] WBC (Bld) [#/Vol] 4.9 10*3/uL 4.4-11.0 [facility] Determination of erythrocyte mean corpuscular volume (MCV)Ordered By: Holly Arzola on 05-10-2023 MCV (RBC) [Entitic vol] 88.8 fL 80-94 [facility] Erythrocyte distribution wid th ratioOrdered By: [facility] Dariusz on 05-10-2023 Erythrocyte distribution width (RBC) [Ratio] 15.2 % 11.6-14.6 [facility] Erythrocyte distribution wid th standard deviationOrdered By: Holly Arzola on 05-10-2023 Erythrocyte distribution width (RBC) [Entitic vol] 48.6 fL 35.1-43.9 [facility] Hematocrit Auto (Bld) [Volum e fraction]Ordered By: Holly Arzola on 05-10-2023 Hematocrit (Bld) [Volume fraction] 36.6 % 40-54 [facility] Immature granulocytes/100 WB C Auto (Bld)Ordered By: [facility] Dariusz on 05-10-2023 Immature granulocytes/100 WBC (Bld) 0.200 % 0.0-0.9 [facility] Comment on above: IG% - Immature Granu locytes (promyelocytes, myelocytes and metamyelocytes) > 1% indicates that a LEFT SHIFT is Present. Laboratory - Chemistry and C hemistry - challengeOrdered By: Holly Arzola on 05-10-2023 Albumin/Globulin [Mass ratio] 1.3 {ratio} 0.9-2.4 [facility] ALP [Catalytic activity/Vol] 55 U/L 45-117 [facility] ALT [Catalytic activity/Vol] 26 U/L 16-61 [facility] CO2 [Moles/Vol] 25.0 mmol/L 21.0-32.0 [facility] Globulin (S) [Mass/Vol] 3.1 g/dL 2.2-4.2 [facility] Urea nitrogen/Creatinine [Mass ratio] 18.3 mg/mg 10-20 [facility] Laboratory - Hematology and Cell countsOrdered By: Holly Arzola on 05-10-2023 MCH (RBC) [Entitic mass] 30.1 pg 27.0-32.0 [facility] MCHC (RBC) [Mass/Vol] 33.9 g/dL 32-36 [facility] Nucleated RBC/100 WBC (Bld) [Ratio] 0 % 0-5 [facility] Platelet mean volume (Bld) [Entitic vol] 9.2 fL 6.2-12.0 [facility] Platelets (Bld) [#/Vol] 190 10*3/uL 150-450 [facility] No Panel InformationOrdered By: Holly Arzola on 05-10-2023 Estimated GFR (MDRD) Amer 97 mL/min >60 [facility] Comment on above: GFR Calc Estimated GFR (MDRD) Non-Af Amer 80 mL/min >60 [facility] Comment on above: Non- GFR Calc RBC Auto (Bld) [#/Vol]Ordere d By: Holly Arzola on 05-10-2023 RBC (Bld) [#/Vol] 4.12 10*6/uL 4.6-6.2 [facility] Serum or plasma calcium ioana urement (mass/volume)Ordered By: Holly Arzola on 05-10-2023 Calcium [Mass/Vol] 9.2 mg/dL 8.5-10.1 [facility] Serum or plasma creatinine m easurement (mass/volume)Ordered By: Holly Arzola on 05-10-2023 Creatinine [Mass/Vol] 0.98 mg/dL 0.70-1.30 [facility] Comment on above: The validity of the calculated GFR & GFRAA in patients over 70 years has not been determined. Clinical correlation is essential. Serum or plasma urea nitroge n measurement (mass/volume)Ordered By: Holly Arzola on 05-10-2023 Urea nitrogen [Mass/Vol] 18 mg/dL 7-18 [facility] Thin prep Papanicolaou smear with manual screeningOrdered By: Holly Arzola on 05-10-2023 Thin prep Papanicolaou smear with manual screening 4.0 g/dL 3.2-5.0 [facility] Thin prep Papanicolaou smear with manual screening 22 U/L 15-37 [facility] Thin prep Papanicolaou smear with manual screening 6 5-15 [facility] Absolute lymphocyte countOrd ered By: Reginaldo Elijah on 03-15-2023 Lymphocytes Auto (Unsp spec) [#/Vol] 1.64 10*3/uL 0.83-4.51 [facility] Basophil percentageOrdered B y: Reginaldo Nava on 03-15-2023 Basophils/100 WBC (Bld) 0.6 % 0-1 [facility] Bilirubin [Mass/Vol] 0.50 mg/dL 0.20-1.00 [facility] Comment on above: For patients on eltr ombopag therapy, use of Dimension [place] TBIL is not recommended. Chloride [Moles/Vol] 105 mmol/L 98-107 [facility] Eosinophils/100 WBC (Bld) 2.1 % 0-5 [facility] Glucose [Mass/Vol] 94 mg/dL 74-106 [facility] LDH [Catalytic activity/Vol] 281 U/L 87-241 [facility] Neutrophils (Bld) [#/Vol] 2.7 10*3/uL 2.0-7.7 [facility] Neutrophils/100 WBC (Bld) 55.4 % 47-70 [facility] Potassium [Moles/Vol] 4.1 mmol/L 3.5-5.1 [facility] Protein [Mass/Vol] 7.3 g/dL 6.4-8.2 [facility] Sodium [Moles/Vol] 140 mmol/L 136-145 [facility] Testosterone [Mass/Vol] 405 ng/dL 264-916 [facility] Comment on above: Adult male reference interval is based on a population ofhealthy nonobese males (BMI <30) between 19 and 39 yearsold. Aniceto et.al. JCEM 2017,102;[id number]. PMID:[id number]. WBC (Bld) [#/Vol] 4.8 10*3/uL 4.4-11.0 [facility] Blood erythrocytes count (nu mber/volume)Ordered By: Reginaldo Nava on 03-15-2023 RBC (Bld) [#/Vol] 4.80 10*6/uL 4.6-6.2 [facility] Blood hemoglobin measurement (mass/volume)Ordered By: Reginaldo Nava on 03-15-2023 Hemoglobin (Bld) [Mass/Vol] 13.5 g/dL 13.0-16.5 [facility] Blood lymphocytes/100 leukoc ytesOrdered By: Reginaldo Nava on 03-15-2023 Lymphocytes/100 WBC (Bld) 34.2 % 19-41 [facility] Blood monocytes/100 leukocyt esOrdered By: Reginaldo Nava on 03-15-2023 Monocytes/100 WBC (Bld) 7.5 % 0-10 [facility] Blood platelet mean volumeOr dered By: Reginaldo Nava on 03-15-2023 Platelet mean volume (Bld) [Entitic vol] 9.6 fL 6.2-12.0 [facility] Determination of erythrocyte mean corpuscular volume (MCV)Ordered By: Reginaldo Nava on 03-15-2023 MCV (RBC) [Entitic vol] 85.0 fL 80-94 [facility] Free testosterone percentage Ordered By: Reginaldo Nava on 03-15-2023 Testosterone Free/Testosterone.total [Mass fraction] 2.33 % 1.50-4.20 [facility] Comment on above: Performed at: [facility] [place] [address] [id number] Director: Jose Angel Marks PhD, Phone: [phone] at: [facility] [id number] Director: Susan Rojas MD, Phone: [phone] Hematocrit Auto (Bld) [Volum e fraction]Ordered By: Reginaldo Nava on 03-15-2023 Hematocrit (Bld) [Volume fraction] 40.8 % 40-54 [facility] INR in Blood by Coagulation assayOrdered By: Reginaldo Nava on 03-15-2023 INR Coag (Bld) [Relative time] 0.9 {INR} [facility] Iron measurement (mass/mass) Ordered By: Reginaldo Nava on 03-15-2023 Iron (Unsp spec) [Mass/Mass] 75 ug/dL 65-175 [facility] Laboratory - Chemistry and C hemistry - challengeOrdered By: Reginaldo Nava on 03-15-2023 ALP [Catalytic activity/Vol] 56 U/L 45-117 [facility] ALT [Catalytic activity/Vol] 38 U/L 16-61 [facility] CO2 [Moles/Vol] 29.0 mmol/L 21.0-32.0 [facility] Cobalamin (Vitamin B12) [Mass/Vol] 595 pg/mL 211-911 [facility] Globulin (S) [Mass/Vol] 3.2 g/dL 2.2-4.2 [facility] Urea nitrogen/Creatinine [Mass ratio] 12.5 mg/mg 10-20 [facility] Laboratory - CoagulationOrde red By: Reginaldo Nava on 03-15-2023 aPTT Coag (Bld) [Time] 25.9 s 24.1-36.2 [facility] PT Coag (PPP) [Time] 12.1 s 11.7-14.9 [facility] Laboratory - Hematology and Cell countsOrdered By: Reginaldo Nava on 03-15-2023 Erythrocyte distribution width (RBC) [Entitic vol] 48.4 fL 35.1-43.9 [facility] Erythrocyte distribution width (RBC) [Ratio] 15.8 % 11.6-14.6 [facility] Immature granulocytes/100 WBC (Bld) 0.200 % 0.0-0.9 [facility] Comment on above: IG% - Immature Granu locytes (promyelocytes, myelocytes and metamyelocytes) > 1% indicates that a LEFT SHIFT is Present. MCH (RBC) [Entitic mass] 28.1 pg 27.0-32.0 [facility] Nucleated RBC/100 WBC (Bld) [Ratio] 0 % 0-5 [facility] MCHC Auto (RBC) [Mass/Vol]Or dered By: Reginaldo Nava on 03-15-2023 MCHC (RBC) [Mass/Vol] 33.1 g/dL 32-36 [facility] No Panel InformationOrdered By: Reginaldo Nava on 03-15-2023 Estimated GFR (MDRD) Amer 91 mL/min >60 [facility] Comment on above: GFR Calc Estimated GFR (MDRD) Non-Af Amer 75 mL/min >60 [facility] Comment on above: Non- GFR Calc Total Iron Binding Capacity 363 ug/dL 250-450 [facility] Platelets bldOrdered By: Jose Nava on 03-15-2023 Platelets (Bld) [#/Vol] 224 10*3/uL 150-450 [facility] Serum or plasma albumin ioana urement (mass/volume)Ordered By: Reginaldo Nava on 03-15-2023 Albumin [Mass/Vol] 4.1 g/dL 3.2-5.0 [facility] Serum or plasma albumin/glob ulin mass ratioOrdered By: Reginaldo Nava on 03-15-2023 Albumin/Globulin [Mass ratio] 1.3 {ratio} 0.9-2.4 [facility] Serum or plasma calcium ioana urement (mass/volume)Ordered By: Reginaldo Nava on 03-15-2023 Calcium [Mass/Vol] 8.7 mg/dL 8.5-10.1 [facility] Serum or plasma creatinine m easurement (mass/volume)Ordered By: Reginaldo Nava on 03-15-2023 Creatinine [Mass/Vol] 1.04 mg/dL 0.70-1.30 [facility] Comment on above: The validity of the calculated GFR & GFRAA in patients over 70 years has not been determined. Clinical correlation is essential. Serum or plasma ferritin merced surement (mass/volume)Ordered By: Reginaldo Nava on 03-15-2023 Ferritin [Mass/Vol] 63 ng/mL 26-388 [facility] Serum or plasma folate measu rement (mass/volume)Ordered By: Reginaldo Nava on 03-15-2023 Folate [Mass/Vol] 53.50 ng/mL 3.1-55.4 [facility] Serum or plasma iron saturat ion measurement (mass fraction)Ordered By: Reginaldo Nava on 03-15-2023 Iron saturation [Mass fraction] 20.7 % 15.0-55.0 [facility] Serum or plasma testosterone free measurement (mass/volume)Ordered By: Reginaldo Nava on 03-15-2023 Testosterone Free [Mass/Vol] 9.44 ng/dL 5.00-21.00 [facility] Serum or plasma urea nitroge n measurement (mass/volume)Ordered By: Reginaldo Nava on 03-15-2023 Urea nitrogen [Mass/Vol] 13 mg/dL 7-18 [facility] Thin prep Papanicolaou smear with manual screeningOrdered By: Reginaldo Nava on 03-15-2023 Thin prep Papanicolaou smear with manual screening 32 U/L 15-37 [facility] Thin prep Papanicolaou smear with manual screening 6 5-15 [facility] Absolute lymphocyte countOrd ered By: Reginaldo Nava on 02-21-2023 Lymphocytes Auto (Unsp spec) [#/Vol] 1.31 10*3/uL 0.83-4.51 [facility] Basophil percentageOrdered B y: Reginaldo Nava on 02-21-2023 Basophils/100 WBC (Bld) 0.9 % 0-1 [facility] Bilirubin [Mass/Vol] 0.50 mg/dL 0.20-1.00 [facility] Comment on above: For patients on eltr ombopag therapy, use of Dimension [place] TBIL is not recommended. Chloride [Moles/Vol] 105 mmol/L 98-107 [facility] Eosinophils/100 WBC (Bld) 2.7 % 0-5 [facility] Glucose [Mass/Vol] 101 mg/dL 74-106 [facility] Comment on above: Fasting Glucose resu lt from 100 to 125 mg/dL suggests IMPAIRED HOMEOSTASIS per A.D.A. criteria. LDH [Catalytic activity/Vol] 251 U/L 87-241 [facility] Neutrophils (Bld) [#/Vol] 1.6 10*3/uL 2.0-7.7 [facility] Neutrophils/100 WBC (Bld) 48.7 % 47-70 [facility] Potassium [Moles/Vol] 3.8 mmol/L 3.5-5.1 [facility] Protein [Mass/Vol] 7.1 g/dL 6.4-8.2 [facility] Sodium [Moles/Vol] 138 mmol/L 136-145 [facility] WBC (Bld) [#/Vol] 3.3 10*3/uL 4.4-11.0 [facility] Blood erythrocytes count (nu mber/volume)Ordered By: Reginaldo Nava on 02-21-2023 RBC (Bld) [#/Vol] 4.76 10*6/uL 4.6-6.2 [facility] Blood hemoglobin measurement (mass/volume)Ordered By: Reginaldo Nava on 02-21-2023 Hemoglobin (Bld) [Mass/Vol] 12.9 g/dL 13.0-16.5 [facility] Blood lymphocytes/100 leukoc ytesOrdered By: Reginaldo Nava on 02-21-2023 Lymphocytes/100 WBC (Bld) 39.8 % 19-41 [facility] Blood monocytes/100 leukocyt esOrdered By: Reginaldo Nava on 02-21-2023 Monocytes/100 WBC (Bld) 7.6 % 0-10 [facility] Blood platelet mean volumeOr dered By: Reginaldo Nava on 02-21-2023 Platelet mean volume (Bld) [Entitic vol] 8.9 fL 6.2-12.0 [facility] Determination of erythrocyte mean corpuscular volume (MCV)Ordered By: Reginaldo Nava on 02-21-2023 MCV (RBC) [Entitic vol] 84.7 fL 80-94 [facility] Erythrocyte sedimentation ra teOrdered By: Reginaldo Nava on 02-21-2023 ESR (Bld) [Velocity] 5 mm/h 0-20 [facility] Hematocrit Auto (Bld) [Volum e fraction]Ordered By: Reginaldo Nava on 02-21-2023 Hematocrit (Bld) [Volume fraction] 40.3 % 40-54 [facility] INR in Blood by Coagulation assayOrdered By: Reginaldo Nava on 02-21-2023 INR Coag (Bld) [Relative time] 1.0 {INR} [facility] Interpretation of serum or p lasma protein pattern by immunofixation (narrative resultOrdered By: Reginaldo Nava on 02-21-2023 Protein Fractions Immunofixation Xavi [Interp] Not Observed g/dL Not Observed [facility] Iron measurement (mass/mass) Ordered By: Reginaldo Nava on 02-21-2023 Iron (Unsp spec) [Mass/Mass] 97 ug/dL 65-175 [facility] Laboratory - Chemistry and C hemistry - challengeOrdered By: Reginaldo Nava on 02-21-2023 ALP [Catalytic activity/Vol] 52 U/L 45-117 [facility] ALT [Catalytic activity/Vol] 36 U/L 16-61 [facility] CO2 [Moles/Vol] 27.0 mmol/L 21.0-32.0 [facility] Free T4 [Mass/Vol] 0.86 ng/dL 0.76-1.46 [facility] Urea nitrogen/Creatinine [Mass ratio] 11.0 mg/mg 10-20 [facility] Laboratory - CoagulationOrde red By: Reginaldo Nava on 02-21-2023 aPTT Coag (Bld) [Time] 25.4 s 24.1-36.2 [facility] PT Coag (PPP) [Time] 13.0 s 11.7-14.9 [facility] Laboratory - Hematology and Cell countsOrdered By: Reginlado Nava on 02-21-2023 Erythrocyte distribution width (RBC) [Entitic vol] 47.6 fL 35.1-43.9 [facility] Erythrocyte distribution width (RBC) [Ratio] 15.6 % 11.6-14.6 [facility] Immature granulocytes/100 WBC (Bld) 0.300 % 0.0-0.9 [facility] Comment on above: IG% - Immature Granu locytes (promyelocytes, myelocytes and metamyelocytes) > 1% indicates that a LEFT SHIFT is Present. MCH (RBC) [Entitic mass] 27.1 pg 27.0-32.0 [facility] Nucleated RBC/100 WBC (Bld) [Ratio] 0 % 0-5 [facility] MCHC Auto (RBC) [Mass/Vol]Or dered By: Reginaldo Nava on 02-21-2023 MCHC (RBC) [Mass/Vol] 32.0 g/dL 32-36 [facility] No Panel InformationOrdered By: Reginaldo Nava on 02-21-2023 Addendum Document Comment . [facility] Comment on above: Protein electrophore sis scan will follow via computer,mail, or car usher delivery. Estimated Creatinine Clearance Calc 61.86 ml/min [facility] Estimated GFR (MDRD) Amer 79 mL/min >60 [facility] Comment on above: GFR Calc Estimated GFR (MDRD) Non-Af Amer 65 mL/min >60 [facility] Comment on above: Non- GFR Calc Free Lambda Light Chains, Quant 10.7 mg/L 5.7-26.3 [facility] Thyroid Stimulating Hormone (TSH) 1.10 uIU/mL 0.358-3.74 [facility] Total Iron Binding Capacity 382 ug/dL 250-450 [facility] Platelets bldOrdered By: Jose Nava on 02-21-2023 Platelets (Bld) [#/Vol] 171 10*3/uL 150-450 [facility] Serum [id number] measu rement by electrophoresisOrdered By: Reginaldo Nava on 02-21-2023 Alpha 1 globulin Elph [Mass/Vol] 0.2 g/dL 0.0-0.4 [facility] Alpha 1 globulin Elph [Mass/Vol] 0.6 g/dL 0.4-1.0 [facility] Serum globulin measurement ( mass/volume)Ordered By: Reginaldo Nava on 02-21-2023 Globulin (S) [Mass/Vol] 2.5 g/dL 2.2-3.9 [facility] Serum immunoglobulin kappa l ight chains/immunoglobulin lambda light chains mass ratioOrdered By: Reginaldo Nava on 02-21-2023 Immunoglobulin light chains.kappa/Immunoglob ulin light chains.lambda (S) [Mass ratio] 1.35 0.26-1.65 [facility] Comment on above: Performed at: [place] [id number] Director: Jose Angel Marks PhD, Phone: [phone] Serum or plasma IgA measurem ent (mass/volume)Ordered By: Reginaldo Nava on 02-21-2023 IgA [Mass/Vol] 188 mg/dL 61-437 [facility] Serum or plasma IgG measurem ent (mass/volume)Ordered By: Reginaldo Nava on 02-21-2023 IgG [Mass/Vol] 797 mg/dL 603-1613 [facility] Serum or plasma IgM measurem ent (mass/volume)Ordered By: Reginaldo Nava on 02-21-2023 IgM [Mass/Vol] 36 mg/dL 20-172 [facility] Serum or plasma albumin ioana urement (mass/volume)Ordered By: Reginaldo Nava on 02-21-2023 Albumin [Mass/Vol] 3.9 g/dL 2.9-4.4 [facility] Serum or plasma albumin/glob ulin mass ratioOrdered By: Reginaldo Nava on 02-21-2023 Albumin/Globulin [Mass ratio] 1.2 {ratio} 0.9-2.4 [facility] Serum or plasma beta globuli n measurement by electrophoresis (mass/volume)Ordered By: Reginaldo Nava on 02-21-2023 Beta globulin Elph [Mass/Vol] 1.0 g/dL 0.7-1.3 [facility] Serum or plasma calcium ioana urement (mass/volume)Ordered By: Reginaldo Nava on 02-21-2023 Calcium [Mass/Vol] 9.1 mg/dL 8.5-10.1 [facility] Serum or plasma creatinine m easurement (mass/volume)Ordered By: Reginaldo Nava on 02-21-2023 Creatinine [Mass/Vol] 1.18 mg/dL 0.70-1.30 [facility] Comment on above: The validity of the calculated GFR & GFRAA in patients over 70 years has not been determined. Clinical correlation is essential. Serum or plasma ferritin merced surement (mass/volume)Ordered By: Reginaldo Nava on 02-21-2023 Ferritin [Mass/Vol] 62 ng/mL 26-388 [facility] Serum or plasma gamma globul in measurement by electrophoresis (mass/volume)Ordered By: Reginaldo Nava on 02-21-2023 Gamma globulin Elph [Mass/Vol] 0.7 g/dL 0.4-1.8 [facility] Serum or plasma immunoelectr ophoresis interpretation (nominal result)Ordered By: Reginaldo Nava on 02-21-2023 Interpretation IEP [Interp] Comment . [facility] Comment on above: No monoclonality det ected. Serum or plasma immunoglobul in kappa light chains measurement (mass/volume)Ordered By: Reginaldo Nava on 02-21-2023 Immunoglobulin light chains.kappa [Mass/Vol] 14.4 mg/L 3.3-19.4 [facility] Serum or plasma iron saturat ion measurement (mass fraction)Ordered By: Reginaldo Nava on 02-21-2023 Iron saturation [Mass fraction] 25.4 % 15.0-55.0 [facility] Serum or plasma urea nitroge n measurement (mass/volume)Ordered By: Reginaldo Elijah on 02-21-2023 Urea nitrogen [Mass/Vol] 13 mg/dL 7-18 [facility] Thin prep Papanicolaou smear with manual screeningOrdered By: Reginaldo Elijah on 02-21-2023 Thin prep Papanicolaou smear with manual screening 28 U/L 15-37 [facility] Thin prep Papanicolaou smear with manual screening 6 5-15 [facility] Thin prep Papanicolaou smear with manual screening 1.6 0.7-1.7 [facility] Total protein bloodOrdered B y: Reginaldo Nava on 02-21-2023 Protein [Mass/Vol] 6.4 g/dL 6.0-8.5 [facility] Absolute lymphocyte countOrd ered By: Hollyjose Arzola on 01-05-2023 Lymphocytes Auto (Unsp spec) [#/Vol] 0.36 10*3/uL 0.83-4.51 [facility] Basophil percentageOrdered B y: Holly Arzola on 01-05-2023 Basophils/100 WBC (Bld) 0.5 % 0-1 [facility] Bilirubin [Mass/Vol] 0.40 mg/dL 0.20-1.00 [facility] Comment on above: For patients on eltr ombopag therapy, use of Dimension [place] TBIL is not recommended. Chloride [Moles/Vol] 105 mmol/L 98-107 [facility] Eosinophils/100 WBC (Bld) 0.2 % 0-5 [facility] Glucose [Mass/Vol] 126 mg/dL 74-106 [facility] Comment on above: Fasting Glucose resu lt greater than or equal to 126 mg/dL suggests DIABETES MELLITUS per A.D.A. criteria. Neutrophils (Bld) [#/Vol] 5.4 10*3/uL 2.0-7.7 [facility] Neutrophils/100 WBC (Bld) 91.1 % 47-70 [facility] Potassium [Moles/Vol] 4.0 mmol/L 3.5-5.1 [facility] Protein [Mass/Vol] 7.5 g/dL 6.4-8.2 [facility] Sodium [Moles/Vol] 137 mmol/L 136-145 [facility] WBC (Bld) [#/Vol] 5.9 10*3/uL 4.4-11.0 [facility] Blood erythrocytes count (nu mber/volume)Ordered By: Holly Arzola on 01-05-2023 RBC (Bld) [#/Vol] 4.99 10*6/uL 4.6-6.2 [facility] Blood hemoglobin measurement (mass/volume)Ordered By: Holly Arzola on 01-05-2023 Hemoglobin (Bld) [Mass/Vol] 13.4 g/dL 13.0-16.5 [facility] Blood lymphocytes/100 leukoc ytesOrdered By: Holly Arzola on 01-05-2023 Lymphocytes/100 WBC (Bld) 6.1 % 19-41 [facility] Blood manual differential co mment interpretation (narrative result)Ordered By: Holly Arzola on 01-05-2023 Manual differential comment Xavi (Bld) [Interp] SEE COMMENT [facility] Comment on above: LYMPHOPENIA NOTED Blood monocytes/100 leukocyt esOrdered By: Holly Arzola on 01-05-2023 Monocytes/100 WBC (Bld) 1.9 % 0-10 [facility] Blood platelet adequacy dete ction by light microscopyOrdered By: Holly Arzola on 01-05-2023 Platelets LM Ql (Bld) ADEQUATE ADEQ [facility] Blood platelet mean volumeOr dered By: Holly Arzola on 01-05-2023 Platelet mean volume (Bld) [Entitic vol] 9.9 fL 6.2-12.0 [facility] Determination of erythrocyte mean corpuscular volume (MCV)Ordered By: Holly Arzola on 01-05-2023 MCV (RBC) [Entitic vol] 83.6 fL 80-94 [facility] Hematocrit Auto (Bld) [Volum e fraction]Ordered By: Holly Arzola on 01-05-2023 Hematocrit (Bld) [Volume fraction] 41.7 % 40-54 [facility] Laboratory - Chemistry and C hemistry - challengeOrdered By: Holly Arzola on 01-05-2023 ALP [Catalytic activity/Vol] 62 U/L 45-117 [facility] ALT [Catalytic activity/Vol] 35 U/L 16-61 [facility] CO2 [Moles/Vol] 28.0 mmol/L 21.0-32.0 [facility] Globulin (S) [Mass/Vol] 3.7 g/dL 2.2-4.2 [facility] Urea nitrogen/Creatinine [Mass ratio] 8.6 mg/mg 10-20 [facility] Laboratory - Hematology and Cell countsOrdered By: Holly Arzola on 01-05-2023 Anisocytosis Ql (Bld) RARE [facility] Erythrocyte distribution width (RBC) [Entitic vol] 46.9 fL 35.1-43.9 [facility] Erythrocyte distribution width (RBC) [Ratio] 15.7 % 11.6-14.6 [facility] Immature granulocytes/100 WBC (Bld) 0.200 % 0.0-0.9 [facility] Comment on above: IG% - Immature Granu locytes (promyelocytes, myelocytes and metamyelocytes) > 1% indicates that a LEFT SHIFT is Present. MCH (RBC) [Entitic mass] 26.9 pg 27.0-32.0 [facility] Nucleated RBC/100 WBC (Bld) [Ratio] 0 % 0-5 [facility] MCHC Auto (RBC) [Mass/Vol]Or dered By: Holly Arzola on 01-05-2023 MCHC (RBC) [Mass/Vol] 32.1 g/dL 32-36 [facility] No Panel InformationOrdered By: Holly Arzola on 01-05-2023 Estimated GFR (MDRD) Amer 80 mL/min >60 [facility] Comment on above: GFR Calc Estimated GFR (MDRD) Non-Af Amer 66 mL/min >60 [facility] Comment on above: Non- GFR Calc Hepatitis B Surface Antigen Non-Reactive Nonreactive [facility] Hepatitis C Antibody Non-Reactive Nonreactive [facility] Comment on above: Non Reactive: < 0.8 Equivocal: >/= 0.8 to < 1.0 Reactive: >/= 1.0The CDC recommends that a reactive/equivocal HCV antibody result be followed up by the HCV Nucleic Acid Amplificationtest ([id number]) Platelets bldOrdered By: Gillian Arzola on 01-05-2023 Platelets (Bld) [#/Vol] 222 10*3/uL 150-450 [facility] RBC morphologyOrdered By: Bipin Arzola on 01-05-2023 RBC morphology finding Nom (Bld) N CHROM NORMAL NORM C&C [facility] Serum cyclic citrullinated p eptide IgG antibody assay (units/volume)Ordered By: Holly Arzola on 01-05-2023 Cyclic citrullinated peptide IgG Qn 5 units 0-19 [facility] Comment on above: Negative <20 Weak po sitive 20 - 39 Moderate positive 40 - 59 Strong positive >59Performed at: [place] [id number] Director: Jose Angel Marks PhD, Phone: [phone] Serum hepatitis B virus surf nomi antibody IgG detectionOrdered By: Holly Arzola on 01-05-2023 HBV surface IgG Ql (S) Non-Reactive [facility] Comment on above: Non Reactive: Incons istent with immunity less than <10 mIU/mL Reactive: Consistent with immunity greater than or equal to 10 mIU/mL Serum or plasma albumin ioana urement (mass/volume)Ordered By: Holly Arzola on 01-05-2023 Albumin [Mass/Vol] 3.8 g/dL 3.2-5.0 [facility] Serum or plasma albumin/glob ulin mass ratioOrdered By: Holly Arzola on 01-05-2023 Albumin/Globulin [Mass ratio] 1.0 {ratio} 0.9-2.4 [facility] Serum or plasma calcium ioana urement (mass/volume)Ordered By: Holly Arzola on 01-05-2023 Calcium [Mass/Vol] 9.0 mg/dL 8.5-10.1 [facility] Serum or plasma creatinine m easurement (mass/volume)Ordered By: Holly Arzola on 01-05-2023 Creatinine [Mass/Vol] 1.16 mg/dL 0.70-1.30 [facility] Comment on above: The validity of the calculated GFR & GFRAA in patients over 70 years has not been determined. Clinical correlation is essential. Serum or plasma urea nitroge n measurement (mass/volume)Ordered By: Holly Arzola on 01-05-2023 Urea nitrogen [Mass/Vol] 10 mg/dL 7-18 [facility] Serum rheumatoid factor dete ctionOrdered By: Holly Arzola on 01-05-2023 Rheumatoid factor Ql (S) < 10.0 IU/mL <15 [facility] Thin prep Papanicolaou smear with manual screeningOrdered By: Holly Arzola on 01-05-2023 Thin prep Papanicolaou smear with manual screening RARE [facility] Thin prep Papanicolaou smear with manual screening 27 U/L 15-37 [facility] Thin prep Papanicolaou smear with manual screening 4 5-15 [facility] 24 hour urine protein measur ement (mass/time)Ordered By: True Ibarra on 12-30-2022 Protein (24H U) [Mass/Time] 153.0 mg/24HR 0-151 [facility] 24 hour urine protein measur ement (mass/volume)Ordered By: True Ibarra on 12-30-2022 Protein (24H U) [Mass/Vol] 8.5 mg/dL 0.0-11.8 [facility] Laboratory - Specimen inform ationOrdered By: True Ibarra on 12-30-2022 Collection duration (U) 24.0 HOURS 24.0-24.0 [facility] No Panel InformationOrdered By: True Ibarra on 12-30-2022 Timed Urine Volume 1800 mL [facility] 24 hour urine alpha 2 globul in/total protein ratio by electrophoresis (mass fraction)Ordered By: True Ibarra on 12-29-2022 Alpha 2 globulin Elph (24H U) [Mass fraction] 19.5 % . [facility] 24 hour urine beta globulin/ total protein ratio by electrophoresis (mass fraction)Ordered By: True Ibarra on 12-29-2022 Beta globulin Elph (24H U) [Mass fraction] 37.6 % . [facility] 24 hour urine gamma globulin /total protein ratio by electrophoresis (mass fraction)Ordered By: True Ibarra on 12-29-2022 Gamma globulin Elph (24H U) [Mass fraction] 18.8 % . [facility] Absolute lymphocyte countOrd ered By: True Ibarra on 12-29-2022 Lymphocytes Auto (Unsp spec) [#/Vol] 1.57 10*3/uL 0.83-4.51 [facility] Basophil percentageOrdered B y: True Ibarra on 12-29-2022 Basophils/100 WBC (Bld) 1.2 % 0-1 [facility] Bilirubin [Mass/Vol] 0.30 mg/dL 0.20-1.00 [facility] Comment on above: For patients on eltr ombopag therapy, use of Dimension [place] TBIL is not recommended. Chloride [Moles/Vol] 106 mmol/L 98-107 [facility] Cholesterol [Mass/Vol] 143 mg/dL <200 [facility] Comment on above: <200 mg/dL Desirable 200-240 mg/dL Borderline >240 mg/dL High Risk Eosinophils/100 WBC (Bld) 4.5 % 0-5 [facility] Glucose [Mass/Vol] 95 mg/dL 74-106 [facility] Neutrophils (Bld) [#/Vol] 1.8 10*3/uL 2.0-7.7 [facility] Neutrophils/100 WBC (Bld) 44.8 % 47-70 [facility] Potassium [Moles/Vol] 4.4 mmol/L 3.5-5.1 [facility] Protein [Mass/Vol] 7.1 g/dL 6.4-8.2 [facility] Sodium [Moles/Vol] 138 mmol/L 136-145 [facility] Testosterone [Mass/Vol] ng/dL 264-916 [facility] Comment on above: Adult male reference interval is based on a population ofhealthy nonobese males (BMI <30) between 19 and 39 yearsold. Aniceto et.al. JCEM 2017,102;3809-2071. PMID:[id number]. Triglyceride [Mass/Vol] 95 mg/dL <199 [facility] Comment on above: The drugs N-Acetylcy steine and Metamizole may falsely depress this assay.Serum Triglycerides Reference Interval Normal <150 mg/dL Borderline high 150 - 199 mg/dL High 200 - 499 mg/dL Very High > or = 500 mg/dL WBC (Bld) [#/Vol] 4.0 10*3/uL 4.4-11.0 [facility] Blood erythrocytes count (nu mber/volume)Ordered By: True Ibarra on 12-29-2022 RBC (Bld) [#/Vol] 4.98 10*6/uL 4.6-6.2 [facility] Blood hemoglobin measurement (mass/volume)Ordered By: True Ibarra on 12-29-2022 Hemoglobin (Bld) [Mass/Vol] 13.1 g/dL 13.0-16.5 [facility] Blood lymphocytes/100 leukoc ytesOrdered By: True Ibarra on 12-29-2022 Lymphocytes/100 WBC (Bld) 38.9 % 19-41 [facility] Blood monocytes/100 leukocyt esOrdered By: True Ibarra on 12-29-2022 Monocytes/100 WBC (Bld) 10.4 % 0-10 [facility] Blood platelet mean volumeOr dered By: True Ibarra on 12-29-2022 Platelet mean volume (Bld) [Entitic vol] 9.6 fL 6.2-12.0 [facility] Determination of erythrocyte mean corpuscular volume (MCV)Ordered By: True Ibarra on 12-29-2022 MCV (RBC) [Entitic vol] 85.5 fL 80-94 [facility] Free testosterone percentage Ordered By: True Ibarra on 12-29-2022 Testosterone Free/Testosterone.total [Mass fraction] 3.26 % 1.50-4.20 [facility] Comment on above: Performed at: - [address] [id number] Director: Jose Angel Marks PhD, Phone: [phone] at: [facility] Lab[address] [id number] Director: Susan Rojas MD, Phone: [phone] Hematocrit Auto (Bld) [Volum e fraction]Ordered By: True Ibarra on 12-29-2022 Hematocrit (Bld) [Volume fraction] 42.6 % 40-54 [facility] Laboratory - Chemistry and C hemistry - challengeOrdered By: True Ibarra on 12-29-2022 Albumin [Mass/Vol] 3.7 g/dL 2.9-4.4 [facility] ALP [Catalytic activity/Vol] 62 U/L 45-117 [facility] ALT [Catalytic activity/Vol] 30 U/L 16-61 [facility] CO2 [Moles/Vol] 30.0 mmol/L 21.0-32.0 [facility] Globulin (S) [Mass/Vol] 3.5 g/dL 2.2-4.2 [facility] Urea nitrogen/Creatinine [Mass ratio] 13.3 mg/mg 10-20 [facility] Laboratory - Hematology and Cell countsOrdered By: True Ibarra on 12-29-2022 Erythrocyte distribution width (RBC) [Entitic vol] 48.5 fL 35.1-43.9 [facility] Erythrocyte distribution width (RBC) [Ratio] 15.7 % 11.6-14.6 [facility] Immature granulocytes/100 WBC (Bld) 0.200 % 0.0-0.9 [facility] Comment on above: IG% - Immature Granu locytes (promyelocytes, myelocytes and metamyelocytes) > 1% indicates that a LEFT SHIFT is Present. MCH (RBC) [Entitic mass] 26.3 pg 27.0-32.0 [facility] Nucleated RBC/100 WBC (Bld) [Ratio] 0 % 0-5 [facility] MCHC Auto (RBC) [Mass/Vol]Or dered By: True Ibarra on 12-29-2022 MCHC (RBC) [Mass/Vol] 30.8 g/dL 32-36 [facility] No Panel InformationOrdered By: True Ibarra on 12-29-2022 Addendum Document Comment . [facility] Comment on above: The SPE pattern appe ars unremarkable. Evidence ofmonoclonal protein is not apparent. Anfai-6-Octhfwevo 0.3 g/dL 0.0-0.4 [facility] Wmers-3-Udprnrjfv 0.7 g/dL 0.4-1.0 [facility] Estimated GFR (MDRD) Amer 90 mL/min >60 [facility] Comment on above: GFR Calc Estimated GFR (MDRD) Non-Af Amer 75 mL/min >60 [facility] Comment on above: Non- GFR Calc Gamma Globulins 0.9 g/dL 0.4-1.8 [facility] Serum Immunofixation Comment . [facility] Comment on above: No monoclonality det ected. Urine Immunofixation PEP Note Comment . [facility] Comment on above: Protein electrophore sis scan will follow via computer,mail, or car usher delivery. Vitamin D 25-Hydroxy 38.0 ng/mL [facility] Comment on above: Vitamin D 25(OH) Sta tus Range Deficiency <20 ng/mL (50nmol/L) Insufficiency 20 - 30 ng/mL (50 - 75 nmol/L) Sufficiency 30 - 100 ng/mL (75 - 250 nmol/L) Toxicity >100 ng/mL (>250 nmol/L) Platelets bldOrdered By: Allison Ibarra on 12-29-2022 Platelets (Bld) [#/Vol] 246 10*3/uL 150-450 [facility] Protein Fractions Elph [Inte rp]Ordered By: True Ibarra on 12-29-2022 Protein Fractions [Interp] Comment . [facility] Comment on above: Protein electrophore sis scan will follow via computer,mail, or car usher delivery. Serum albumin to globulin ra carley by protein electrophoresisOrdered By: True Ibarra on 12-29-2022 Albumin/Globulin Elph [Mass ratio] 1.3 0.7-1.7 [facility] Serum globulin measurement ( mass/volume)Ordered By: True Ibarra on 12-29-2022 Globulin (S) [Mass/Vol] 2.9 g/dL 2.2-3.9 [facility] Serum or plasma IgA measurem ent (mass/volume)Ordered By: True Ibarra on 12-29-2022 IgA [Mass/Vol] 209 mg/dL 61-437 [facility] Serum or plasma IgG measurem ent (mass/volume)Ordered By: True Ibarra on 12-29-2022 IgG [Mass/Vol] 833 mg/dL 603-1613 [facility] Serum or plasma IgM measurem ent (mass/volume)Ordered By: True Ibarra on 12-29-2022 IgM [Mass/Vol] 42 mg/dL 20-172 [facility] Serum or plasma albumin ioana urement (mass/volume)Ordered By: True Ibarra on 12-29-2022 Albumin [Mass/Vol] 3.6 g/dL 3.2-5.0 [facility] Serum or plasma albumin/glob ulin mass ratioOrdered By: True Ibarra on 12-29-2022 Albumin/Globulin [Mass ratio] 1.0 {ratio} 0.9-2.4 [facility] Serum or plasma beta globuli n measurement by electrophoresis (mass/volume)Ordered By: True Ibarra on 12-29-2022 Beta globulin Elph [Mass/Vol] 1.1 g/dL 0.7-1.3 [facility] Serum or plasma calcium ioana urement (mass/volume)Ordered By: True Ibarra on 12-29-2022 Calcium [Mass/Vol] 8.6 mg/dL 8.5-10.1 [facility] Serum or plasma cholesterol in HDL measurement (mass/volume)Ordered By: True Ibarra on 12-29-2022 Cholesterol in HDL [Mass/Vol] 63 mg/dL >40 [facility] Comment on above: The drugs N-Acetylcy steine and Metamizole may falsely depress this assay. Reference Range HDL <40 mg/dL Low HDL Cholesterol HDL >or= 60 mg/dL High HDL Cholesterol Serum or plasma cholesterol in VLDL measurement (mass/volume)Ordered By: True Ibarra on 12-29-2022 Cholesterol in VLDL [Mass/Vol] 19 mg/dL 5-40 [facility] Serum or plasma creatinine m easurement (mass/volume)Ordered By: True Ibarra on 12-29-2022 Creatinine [Mass/Vol] 1.05 mg/dL 0.70-1.30 [facility] Comment on above: The validity of the calculated GFR & GFRAA in patients over 70 years has not been determined. Clinical correlation is essential. Serum or plasma low density lipoprotein (LDL) cholesterol measurement (mass/volume)Ordered By: True Ibarra on 12-29-2022 Cholesterol in LDL [Mass/Vol] 61 mg/dL 0-130 [facility] Serum or plasma protein mono clonal measurement by electrophoresis (mass/volume)Ordered By: True Ibarra on 12-29-2022 Protein.monoclonal Elph [Mass/Vol] Not Observed g/dL Not Observed [facility] Serum or plasma testosterone free measurement (mass/volume)Ordered By: True Ibarra on 12-29-2022 Testosterone Free [Mass/Vol] > 48.90 ng/dL 5.00-21.00 [facility] Serum or plasma urea nitroge n measurement (mass/volume)Ordered By: True Ibarra on 12-29-2022 Urea nitrogen [Mass/Vol] 14 mg/dL 09-28 [facility] Thin prep Papanicolaou smear with manual screeningOrdered By: True Ibarra on 12-29-2022 Thin prep Papanicolaou smear with manual screening 22 U/L 15-37 [facility] Thin prep Papanicolaou smear with manual screening 2 5-15 [facility] Total protein bloodOrdered B y: True Ibarra on 12-29-2022 Protein [Mass/Vol] 6.6 g/dL 6.0-8.5 [facility] Urine albumin/total protein mass ratio by electrophoresisOrdered By: True Ibarra on 12-29-2022 Albumin Elph (U) [Mass fraction] 21.0 % . [facility] Urine alpha 1 globulin/total protein ratio by electrophoresis (mass fraction)Ordered By: True Ibarra on 12-29-2022 Alpha 1 globulin Elph (U) [Mass fraction] 3.1 % . [facility] Urine monoclonal protein/tot al protein mass ratio by electrophoresisOrdered By: True Ibarra on 12-29-2022 Protein.monoclonal Elph (U) [Mass fraction] See comment [facility] Comment on above: Result: Not Observed Urine protein measurement (m ass/volume)Ordered By: True Ibarra on 12-29-2022 Protein (U) [Mass/Vol] 7.2 mg/dL Not Estab. [facility] Basophil percentageOrdered B y: True Ibarra on 11-09-2022 Basophil percentage Not Reportable [facility] Chloride [Moles/Vol] 105 mmol/L 98-107 [facility] Glucose [Mass/Vol] 110 mg/dL 74-106 [facility] Comment on above: Fasting Glucose resu lt from 100 to 125 mg/dL suggests IMPAIRED HOMEOSTASIS per A.D.A. criteria. Potassium [Moles/Vol] 4.1 mmol/L 3.5-5.1 [facility] Sodium [Moles/Vol] 138 mmol/L 136-145 [facility] Bilirubin Test strip Ql (U)O rdered By: True Ibarra on 11-09-2022 Bilirubin Ql (U) Negative Negative [facility] Erythrocyte sedimentation ra teOrdered By: True Ibarra on 11-09-2022 ESR (Bld) [Velocity] 15 mm/h 0-20 [facility] Ketones Test strip Ql (U)Ord ered By: True Ibarra on 11-09-2022 Ketones Ql (U) Negative Negative [facility] Laboratory - Chemistry and C hemistry - challengeOrdered By: True Ibarra on 11-09-2022 CO2 [Moles/Vol] 27.0 mmol/L 21.0-32.0 [facility] Urea nitrogen/Creatinine [Mass ratio] 10.7 mg/mg 10-20 [facility] Nitrite Test strip Ql (U)Ord ered By: True Ibarra on 11-09-2022 Nitrite Ql (U) Negative Negative [facility] No Panel InformationOrdered By: True Ibarra on 11-09-2022 Anti-Nuclear Antibody Screen Negative Negative [facility] Comment on above: Performed at: [address] [id number] Director: Jose Angel Marks PhD, Phone: [phone] Centromere B Antibody Not Reportable [facility] Estimated GFR (MDRD) Amer 65 mL/min >60 [facility] Comment on above: GFR Calc Estimated GFR (MDRD) Non-Af Amer 54 mL/min >60 [facility] Comment on above: Non- GFR Calc CLASSIFICATIONS OFFICER CC/CM Antibody Not Reportable [facility] Urine Microalbumin/Creatinine Ratio 6.2 mg/g CRE <30 [facility] Protein Test strip Ql (U)Ord ered By: True Ibarra on 11-09-2022 Protein Ql (U) Negative Negative [facility] Serum DNA double strand anti body assay (units/volume)Ordered By: True Ibarra on 11-09-2022 DNA double strand Ab Qn (S) Not Reportable [facility] Serum Linnea-1 antibody assay (u nits/volume)Ordered By: True Ibarra on 11-09-2022 Linnea-1 extractable nuclear Ab Qn (S) Not Reportable [facility] Serum Scl-70 extractable nuc lear antibody assay (units/volume)Ordered By: True Ibarra on 11-09-2022 SCL-70 extractable nuclear Ab Qn (S) Not Reportable [facility] Serum Sarkar extractable nucl ear antibody detectionOrdered By: True Ibarra on 11-09-2022 Sarkar extractable nuclear Ab Ql (S) Not Reportable [facility] Serum cyclic citrullinated p eptide IgG antibody assay (units/volume)Ordered By: True Ibarra on 11-09-2022 Cyclic citrullinated peptide IgG Qn 8 units 0-19 [facility] Comment on above: Negative <20 Weak po sitive 20 - 39 Moderate positive 40 - 59 Strong positive >59Performed at: [place] [id number] Director: Jose Angel Marks PhD, Phone: [phone] Serum or plasma C reactive p rotein measurement (mass/volume)Ordered By: True Ibarra on 11-09-2022 CRP [Mass/Vol] 4.97 mg/L 0.0-3.0 [facility] Comment on above: C-Reactive Protein ( CRP) provides useful information for thediagnosis, therapy and monitoring of inflammatory processesand associated diseases. For the evaluation of Relative Riskfor Cardiovascular Disease, a High Sensitivity CRP (HSCRP)should be ordered. Serum or plasma calcium ioana urement (mass/volume)Ordered By: True Ibarra on 11-09-2022 Calcium [Mass/Vol] 8.6 mg/dL 8.5-10.1 [facility] Serum or plasma creatinine m easurement (mass/volume)Ordered By: True Ibarra on 11-09-2022 Creatinine [Mass/Vol] 1.40 mg/dL 0.70-1.30 [facility] Comment on above: The validity of the calculated GFR & GFRAA in patients over 70 years has not been determined. Clinical correlation is essential. Serum or plasma urea nitroge n measurement (mass/volume)Ordered By: True Ibarra on 11-09-2022 Urea nitrogen [Mass/Vol] 15 mg/dL 7-18 [facility] Serum rheumatoid factor dete ctionOrdered By: True Ibarra on 11-09-2022 Rheumatoid factor Ql (S) < 10.0 IU/mL <15 [facility] Thin prep Papanicolaou smear with manual screeningOrdered By: True Ibarra on 11-09-2022 Thin prep Papanicolaou smear with manual screening 6 5-15 [facility] Thin prep Papanicolaou smear with manual screening 12.5 mg/L NO RANGE EST. [facility] Urine blood detectionOrdered By: True Ibarra on 11-09-2022 RBC Ql (U) Negative Negative [facility] Urine clarityOrdered By: Allison Ibarra on 11-09-2022 Clarity (U) Clear Clear [facility] Urine color determinationOrd ered By: True Ibarra on 11-09-2022 Color (U) Yellow Yellow [facility] Urine creatinine measurement (mass/volume)Ordered By: True Ibarra on 11-09-2022 Creatinine (U) [Mass/Vol] 203.00 mg/dL NO RANGE EST. [facility] Urine glucose detectionOrder ed By: True Ibarra on 11-09-2022 Glucose Ql (U) Normal mg/dl Normal [facility] Urine leukocyte esterase det ection by dipstickOrdered By: True Ibarra on 11-09-2022 Leukocyte esterase Test strip Ql (U) 25 /ul Negative [facility] Urine pHOrdered By: True wooten on 11-09-2022 pH (U) 5.0 [pH] 5.0 - 8.0 [facility] Urine specific gravity measu rementOrdered By: True Ibarra on 11-09-2022 Specific gravity (U) [Rel density] 1.025 1.002-1.030 [facility] Urobilinogen Auto test strip Ql (U)Ordered By: True Ibarra on 11-09-2022 Urobilinogen Ql (U) Normal mg/dl Normal [facility] Absolute lymphocyte countOrd ered By: Reginaldo Nava on 11-08-2022 Lymphocytes Auto (Unsp spec) [#/Vol] 0.92 10*3/uL 0.83-4.51 [facility] Basophil percentageOrdered B y: Reginaldo Nava on 11-08-2022 Basophils/100 WBC (Bld) 0.5 % 0-1 [facility] Bilirubin [Mass/Vol] 0.40 mg/dL 0.20-1.00 [facility] Comment on above: For patients on eltr ombopag therapy, use of Dimension [place] TBIL is not recommended. Chloride [Moles/Vol] 106 mmol/L 98-107 [facility] Eosinophils/100 WBC (Bld) 1.4 % 0-5 [facility] Glucose [Mass/Vol] 96 mg/dL 74-106 [facility] LDH [Catalytic activity/Vol] 219 U/L 87-241 [facility] Neutrophils (Bld) [#/Vol] 2.3 10*3/uL 2.0-7.7 [facility] Neutrophils/100 WBC (Bld) 61.0 % 47-70 [facility] Potassium [Moles/Vol] 3.8 mmol/L 3.5-5.1 [facility] Protein [Mass/Vol] 6.8 g/dL 6.4-8.2 [facility] Sodium [Moles/Vol] 138 mmol/L 136-145 [facility] WBC (Bld) [#/Vol] 3.7 10*3/uL 4.4-11.0 [facility] Blood erythrocytes count (nu mber/volume)Ordered By: Reginaldo Nava on 11-08-2022 RBC (Bld) [#/Vol] 4.65 10*6/uL 4.6-6.2 [facility] Blood hemoglobin measurement (mass/volume)Ordered By: Reginaldo Nava on 11-08-2022 Hemoglobin (Bld) [Mass/Vol] 12.5 g/dL 13.0-16.5 [facility] Blood lymphocytes/100 leukoc ytesOrdered By: Reginaldo Nava on 11-08-2022 Lymphocytes/100 WBC (Bld) 24.9 % 19-41 [facility] Blood monocytes/100 leukocyt esOrdered By: Reginaldo Nava on 11-08-2022 Monocytes/100 WBC (Bld) 12.2 % 0-10 [facility] Blood platelet mean volumeOr dered By: Reginaldo Nava on 11-08-2022 Platelet mean volume (Bld) [Entitic vol] 9.2 fL 6.2-12.0 [facility] Determination of erythrocyte mean corpuscular volume (MCV)Ordered By: Reginaldo Nava on 11-08-2022 MCV (RBC) [Entitic vol] 82.6 fL 80-94 [facility] Hematocrit Auto (Bld) [Volum e fraction]Ordered By: Reginaldo Nava on 11-08-2022 Hematocrit (Bld) [Volume fraction] 38.4 % 40-54 [facility] Laboratory - Chemistry and C hemistry - challengeOrdered By: Reginaldo Nava on 11-08-2022 ALP [Catalytic activity/Vol] 60 U/L 45-117 [facility] ALT [Catalytic activity/Vol] 29 U/L 16-61 [facility] CO2 [Moles/Vol] 29.0 mmol/L 21.0-32.0 [facility] Globulin (S) [Mass/Vol] 3.2 g/dL 2.2-4.2 [facility] Urea nitrogen/Creatinine [Mass ratio] 7.3 mg/mg 10-20 [facility] Laboratory - Hematology and Cell countsOrdered By: Reginaldo Nava on 11-08-2022 Erythrocyte distribution width (RBC) [Entitic vol] 44.0 fL 35.1-43.9 [facility] Erythrocyte distribution width (RBC) [Ratio] 14.7 % 11.6-14.6 [facility] Immature granulocytes/100 WBC (Bld) 0.000 % 0.0-0.9 [facility] Comment on above: IG% - Immature Granu locytes (promyelocytes, myelocytes and metamyelocytes) > 1% indicates that a LEFT SHIFT is Present. MCH (RBC) [Entitic mass] 26.9 pg 27.0-32.0 [facility] Nucleated RBC/100 WBC (Bld) [Ratio] 0 % 0-5 [facility] MCHC Auto (RBC) [Mass/Vol]Or dered By: Reginaldo Nava on 11-08-2022 MCHC (RBC) [Mass/Vol] 32.6 g/dL 32-36 [facility] No Panel InformationOrdered By: Reginaldo Nava on 11-08-2022 Estimated Creatinine Clearance Calc 44.51 ml/min [facility] Estimated GFR (MDRD) Amer 54 mL/min >60 [facility] Comment on above: GFR Calc Estimated GFR (MDRD) Non-Af Amer 45 mL/min >60 [facility] Comment on above: Non- GFR Calc Platelets bldOrdered By: Jose Nava on 11-08-2022 Platelets (Bld) [#/Vol] 172 10*3/uL 150-450 [facility] Serum or plasma albumin ioana urement (mass/volume)Ordered By: Reginaldo Nava on 11-08-2022 Albumin [Mass/Vol] 3.6 g/dL 3.2-5.0 [facility] Serum or plasma albumin/glob ulin mass ratioOrdered By: Reginaldo Nava on 11-08-2022 Albumin/Globulin [Mass ratio] 1.1 {ratio} 0.9-2.4 [facility] Serum or plasma calcium ioana urement (mass/volume)Ordered By: Reginaldo Nava on 11-08-2022 Calcium [Mass/Vol] 8.8 mg/dL 8.5-10.1 [facility] Serum or plasma creatinine m easurement (mass/volume)Ordered By: Reginaldo Nava on 11-08-2022 Creatinine [Mass/Vol] 1.64 mg/dL 0.70-1.30 [facility] Comment on above: The validity of the calculated GFR & GFRAA in patients over 70 years has not been determined. Clinical correlation is essential. Serum or plasma urea nitroge n measurement (mass/volume)Ordered By: Reginaldo Nava on 11-08-2022 Urea nitrogen [Mass/Vol] 12 mg/dL 7-18 [facility] Thin prep Papanicolaou smear with manual screeningOrdered By: Reginaldo Nava on 11-08-2022 Thin prep Papanicolaou smear with manual screening 27 U/L 15-37 [facility] Thin prep Papanicolaou smear with manual screening 3 5-15 [facility] Basophil percentageOrdered B y: Tito Krause on 08-02-2022 Bilirubin [Mass/Vol] 0.30 mg/dL 0.20-1.00 [facility] Comment on above: For patients on eltr ombopag therapy, use of Dimension [place] TBIL is not recommended. Chloride [Moles/Vol] 105 mmol/L 98-107 [facility] Cholesterol [Mass/Vol] 148 mg/dL <200 [facility] Comment on above: <200 mg/dL Desirable 200-240 mg/dL Borderline >240 mg/dL High Risk Glucose [Mass/Vol] 94 mg/dL 74-106 [facility] Potassium [Moles/Vol] 4.3 mmol/L 3.5-5.1 [facility] Protein [Mass/Vol] 6.8 g/dL 6.4-8.2 [facility] Sodium [Moles/Vol] 139 mmol/L 136-145 [facility] Testosterone [Mass/Vol] 187 ng/dL 264-916 [facility] Comment on above: Adult male reference interval is based on a population ofhealthy nonobese males (BMI <30) between 19 and 39 yearsold. leighton Moreland.al. JCEM 2017,102;3498-2043. PMID:[id number]. Triglyceride [Mass/Vol] 92 mg/dL <199 [facility] Comment on above: The drugs N-Acetylcy steine and Metamizole may falsely depress this assay.Serum Triglycerides Reference Interval Normal <150 mg/dL Borderline high 150 - 199 mg/dL High 200 - 499 mg/dL Very High > or = 500 mg/dL Free testosterone percentage Ordered By: Tito Krause on 08-02-2022 Testosterone Free/Testosterone.total [Mass fraction] 2.22 % 1.50-4.20 [facility] Comment on above: Performed at: [facility] [address] [id number] Director: Jose Angel Marks PhD, Phone: [phone] at: - [facility] [address] [id number] Director: Susan Rojas MD, Phone: [phone] Laboratory - Chemistry and C hemistry - challengeOrdered By: Tito Krause on 08-02-2022 ALP [Catalytic activity/Vol] 72 U/L 45-117 [facility] ALT [Catalytic activity/Vol] 24 U/L 16-61 [facility] CK [Catalytic activity/Vol] 80 U/L 39-308 [facility] CO2 [Moles/Vol] 28.0 mmol/L 21.0-32.0 [facility] Globulin (S) [Mass/Vol] 3.2 g/dL 2.2-4.2 [facility] Urea nitrogen/Creatinine [Mass ratio] 17.3 mg/mg 10-20 [facility] No Panel InformationOrdered By: Tito Krause on 08-02-2022 Estimated GFR (MDRD) Amer 97 mL/min >60 [facility] Comment on above: GFR Calc Estimated GFR (MDRD) Non-Af Amer 81 mL/min >60 [facility] Comment on above: Non- GFR Calc Thyroid Stimulating Hormone (TSH) 2.52 uIU/mL 0.358-3.74 [facility] Serum or plasma albumin ioana urement (mass/volume)Ordered By: Tito Krause on 08-02-2022 Albumin [Mass/Vol] 3.6 g/dL 3.2-5.0 [facility] Serum or plasma albumin/glob ulin mass ratioOrdered By: Tito Krause on 08-02-2022 Albumin/Globulin [Mass ratio] 1.1 {ratio} 0.9-2.4 [facility] Serum or plasma calcium ioana urement (mass/volume)Ordered By: Tito Krause on 08-02-2022 Calcium [Mass/Vol] 9.0 mg/dL 8.5-10.1 [facility] Serum or plasma cholesterol in HDL measurement (mass/volume)Ordered By: Tito Krause on 08-02-2022 Cholesterol in HDL [Mass/Vol] 54 mg/dL >40 [facility] Comment on above: The drugs N-Acetylcy steine and Metamizole may falsely depress this assay. Reference Range HDL <40 mg/dL Low HDL Cholesterol HDL >or= 60 mg/dL High HDL Cholesterol Serum or plasma cholesterol in VLDL measurement (mass/volume)Ordered By: Tito Krause on 08-02-2022 Cholesterol in VLDL [Mass/Vol] 18 mg/dL 5-40 [facility] Serum or plasma creatinine m easurement (mass/volume)Ordered By: Tito Krause on 08-02-2022 Creatinine [Mass/Vol] 0.98 mg/dL 0.70-1.30 [facility] Comment on above: The validity of the calculated GFR & GFRAA in patients over 70 years has not been determined. Clinical correlation is essential. Serum or plasma low density lipoprotein (LDL) cholesterol measurement (mass/volume)Ordered By: Tito Krause on 08-02-2022 Cholesterol in LDL [Mass/Vol] 76 mg/dL 0-130 [facility] Serum or plasma testosterone free measurement (mass/volume)Ordered By: Tito Krause on 08-02-2022 Testosterone Free [Mass/Vol] 4.15 ng/dL 5.00-21.00 [facility] Serum or plasma urea nitroge n measurement (mass/volume)Ordered By: Tito Krause on 08-02-2022 Urea nitrogen [Mass/Vol] 17 mg/dL 7-18 [facility] Thin prep Papanicolaou smear with manual screeningOrdered By: Tito Krause on 08-02-2022 Thin prep Papanicolaou smear with manual screening 28 U/L 15-37 [facility] Thin prep Papanicolaou smear with manual screening 6 5-15 [facility] Basophil percentageOrdered B y: Dr. Krause on 05-17-2022 Chloride [Moles/Vol] 104 mmol/L 98-107 [facility] Glucose [Mass/Vol] 109 mg/dL 74-106 [facility] Comment on above: Fasting Glucose resu lt from 100 to 125 mg/dL suggests IMPAIRED HOMEOSTASIS per A.D.A. criteria. Potassium [Moles/Vol] 4.3 mmol/L 3.5-5.1 [facility] Sodium [Moles/Vol] 138 mmol/L 136-145 [facility] Laboratory - Chemistry and C hemistry - challengeOrdered By: Dr. Krause on 05-17-2022 CO2 [Moles/Vol] 29.0 mmol/L 21.0-32.0 [facility] Urea nitrogen/Creatinine [Mass ratio] 9.8 mg/mg 10-20 [facility] No Panel InformationOrdered By: Dr. Krause on 05-17-2022 Estimated GFR (MDRD) Amer 84 mL/min >60 [facility] Comment on above: GFR Calc Estimated GFR (MDRD) Non-Af Amer 69 mL/min >60 [facility] Comment on above: Non- GFR Calc Serum or plasma calcium ioaan urement (mass/volume)Ordered By: Dr. Krause on 05-17-2022 Calcium [Mass/Vol] 9.0 mg/dL 8.5-10.1 [facility] Serum or plasma creatinine m easurement (mass/volume)Ordered By: Dr. Krause on 05-17-2022 Creatinine [Mass/Vol] 1.12 mg/dL 0.70-1.30 [facility] Comment on above: The validity of the calculated GFR & GFRAA in patients over 70 years has not been determined. Clinical correlation is essential. Serum or plasma urea nitroge n measurement (mass/volume)Ordered By: Dr. Krause on 05-17-2022 Urea nitrogen [Mass/Vol] 11 mg/dL 7-18 [facility] Thin prep Papanicolaou smear with manual screeningOrdered By: Dr. Krause on 05-17-2022 Thin prep Papanicolaou smear with manual screening 5 5-15 [facility] Basophil percentageon 2022 Testosterone [Mass/Vol] 1057 ng/dL 264-916 [facility] Comment on above: Adult male reference interval is based on a population ofhealthy nonobese males (BMI <30) between 19 and 39 yearsold. Aniceto et.al. JCEM 2017,102;9887-8258. PMID:[id number]. Free testosterone percentage on 04-19-2022 Testosterone Free/Testosterone.total [Mass fraction] 2.33 % 1.50-4.20 [facility] Comment on above: Performed at: [facility] [address] [id number] Director: Jose Angel Marks PhD, Phone: [phone] at: [facility] [address] [id number] Director: Susan Rojas MD, Phone: [phone] Serum or plasma testosterone free measurement (mass/volume)on 04-19-2022 Testosterone Free [Mass/Vol] 24.63 ng/dL 5.00-21.00 [facility] Basophil percentageOrdered B y: Dr. Krause on 04-14-2022 Bilirubin [Mass/Vol] 0.30 mg/dL 0.20-1.00 [facility] Comment on above: For patients on eltr ombopag therapy, use of Dimension [place] TBIL is not recommended. Chloride [Moles/Vol] 104 mmol/L 98-107 [facility] Glucose [Mass/Vol] 100 mg/dL 74-106 [facility] Comment on above: Fasting Glucose resu lt from 100 to 125 mg/dL suggests IMPAIRED HOMEOSTASIS per A.D.A. criteria. Potassium [Moles/Vol] 4.0 mmol/L 3.5-5.1 [facility] Protein [Mass/Vol] 6.9 g/dL 6.4-8.2 [facility] Sodium [Moles/Vol] 140 mmol/L 136-145 [facility] Laboratory - Chemistry and C hemistry - challengeOrdered By: Dr. Krause on 04-14-2022 ALP [Catalytic activity/Vol] 56 U/L 45-117 [facility] ALT [Catalytic activity/Vol] 27 U/L 16-61 [facility] CK [Catalytic activity/Vol] 88 U/L 39-308 [facility] CO2 [Moles/Vol] 31.0 mmol/L 21.0-32.0 [facility] Globulin (S) [Mass/Vol] 3.2 g/dL 2.2-4.2 [facility] Urea nitrogen/Creatinine [Mass ratio] 6.0 mg/mg 10-20 [facility] No Panel InformationOrdered By: Dr. Krause on 04-14-2022 Estimated GFR (MDRD) Amer 60 mL/min >60 [facility] Comment on above: GFR Calc Estimated GFR (MDRD) Non-Af Amer 50 mL/min >60 [facility] Comment on above: Non- GFR Calc Serum or plasma albumin ioana urement (mass/volume)Ordered By: Dr. Krause on 04-14-2022 Albumin [Mass/Vol] 3.7 g/dL 3.2-5.0 [facility] Serum or plasma albumin/glob ulin mass ratioOrdered By: Dr. Krause on 04-14-2022 Albumin/Globulin [Mass ratio] 1.2 {ratio} 0.9-2.4 [facility] Serum or plasma calcium ioana urement (mass/volume)Ordered By: Dr. Krause on 04-14-2022 Calcium [Mass/Vol] 8.7 mg/dL 8.5-10.1 [facility] Serum or plasma creatinine m easurement (mass/volume)Ordered By: Dr. Krause on 04-14-2022 Creatinine [Mass/Vol] 1.49 mg/dL 0.70-1.30 [facility] Comment on above: The validity of the calculated GFR & GFRAA in patients over 70 years has not been determined. Clinical correlation is essential. Serum or plasma urea nitroge n measurement (mass/volume)Ordered By: Dr. Krause on 04-14-2022 Urea nitrogen [Mass/Vol] 9 mg/dL 7-18 [facility] Thin prep Papanicolaou smear with manual screeningOrdered By: Dr. Krause on 04-14-2022 Thin prep Papanicolaou smear with manual screening 30 U/L 15-37 [facility] Thin prep Papanicolaou smear with manual screening 5 5-15 [facility] Absolute lymphocyte countOrd ered By: Desirae Yanes on 04-08-2022 Lymphocytes Auto (Unsp spec) [#/Vol] 1.04 10*3/uL 0.83-4.51 [facility] Basophil percentageOrdered B y: Desirae Yanes on 04-08-2022 Testosterone [Mass/Vol] 1429 ng/dL 264-916 [facility] Comment on above: Adult male reference interval is based on a population ofhealthy nonobese males (BMI <30) between 19 and 39 yearsold. leighton Moreland.al. JCEM 2017,102;9130-7570. PMID:[id number]. Basophils/100 WBC (Bld) 0.7 % 0-1 [facility] Eosinophils/100 WBC (Bld) 2.1 % 0-5 [facility] Neutrophils (Bld) [#/Vol] 2.8 10*3/uL 2.0-7.7 [facility] Neutrophils/100 WBC (Bld) 64.0 % 47-70 [facility] WBC (Bld) [#/Vol] 4.3 10*3/uL 4.4-11.0 [facility] Bilirubin [Mass/Vol] 0.40 mg/dL 0.20-1.00 [facility] Comment on above: For patients on eltr ombopag therapy, use of Dimension [place] TBIL is not recommended. Chloride [Moles/Vol] 105 mmol/L 98-107 [facility] Cholesterol [Mass/Vol] 137 mg/dL <200 [facility] Comment on above: <200 mg/dL Desirable 200-240 mg/dL Borderline >240 mg/dL High Risk Glucose [Mass/Vol] 118 mg/dL 74-106 [facility] Comment on above: Fasting Glucose resu lt from 100 to 125 mg/dL suggests IMPAIRED HOMEOSTASIS per A.D.A. criteria. Potassium [Moles/Vol] 4.0 mmol/L 3.5-5.1 [facility] Protein [Mass/Vol] 6.3 g/dL 6.4-8.2 [facility] Sodium [Moles/Vol] 140 mmol/L 136-145 [facility] Triglyceride [Mass/Vol] 63 mg/dL <199 [facility] Comment on above: The drugs N-Acetylcy steine and Metamizole may falsely depress this assay.Serum Triglycerides Reference Interval Normal <150 mg/dL Borderline high 150 - 199 mg/dL High 200 - 499 mg/dL Very High > or = 500 mg/dL Blood erythrocytes count (nu mber/volume)Ordered By: Desirae Yanes on 04-08-2022 RBC (Bld) [#/Vol] 4.47 10*6/uL 4.6-6.2 [facility] Blood hemoglobin measurement (mass/volume)Ordered By: Desirae Yanes on 04-08-2022 Hemoglobin (Bld) [Mass/Vol] 13.0 g/dL 13.0-16.5 [facility] Blood lymphocytes/100 leukoc ytesOrdered By: Desirae Yanes on 04-08-2022 Lymphocytes/100 WBC (Bld) 24.2 % 19-41 [facility] Blood monocytes/100 leukocyt esOrdered By: Desirae Yanes on 04-08-2022 Monocytes/100 WBC (Bld) 8.8 % 0-10 [facility] Blood platelet mean volumeOr dered By: Desirae Yanes on 04-08-2022 Platelet mean volume (Bld) [Entitic vol] 9.5 fL 6.2-12.0 [facility] Determination of erythrocyte mean corpuscular volume (MCV)Ordered By: Desirae Yanes on 04-08-2022 MCV (RBC) [Entitic vol] 89.7 fL 80-94 [facility] Direct bilirubinOrdered By: Desirae Yanes on 04-08-2022 Bilirubin.direct [Mass/Vol] 0.14 mg/dL 0.00-0.30 [facility] Free testosterone percentage Ordered By: Desirae Yanes on 04-08-2022 Testosterone Free/Testosterone.total [Mass fraction] 3.51 % 1.50-4.20 [facility] Comment on above: Performed at: [address] [id number] Director: Jose Angel Marks PhD, Phone: [phone] at: [facility] [address] [id number] Director: Susan Rojas MD, Phone: [phone] Hematocrit Auto (Bld) [Volum e fraction]Ordered By: Desirae Yanes on 04-08-2022 Hematocrit (Bld) [Volume fraction] 40.1 % 40-54 [facility] Laboratory - Chemistry and C hemistry - challengeOrdered By: Desirae Yanes on 04-08-2022 ALP [Catalytic activity/Vol] 56 U/L 45-117 [facility] ALT [Catalytic activity/Vol] 25 U/L 16-61 [facility] CO2 [Moles/Vol] 30.0 mmol/L 21.0-32.0 [facility] Globulin (S) [Mass/Vol] 3.1 g/dL 2.2-4.2 [facility] Urea nitrogen/Creatinine [Mass ratio] 11.4 mg/mg 10-20 [facility] Laboratory - Hematology and Cell countsOrdered By: Desirae Yanes on 04-08-2022 Erythrocyte distribution width (RBC) [Entitic vol] 43.6 fL 35.1-43.9 [facility] Erythrocyte distribution width (RBC) [Ratio] 13.2 % 11.6-14.6 [facility] Immature granulocytes/100 WBC (Bld) 0.200 % 0.0-0.9 [facility] Comment on above: IG% - Immature Granu locytes (promyelocytes, myelocytes and metamyelocytes) > 1% indicates that a LEFT SHIFT is Present. MCH (RBC) [Entitic mass] 29.1 pg 27.0-32.0 [facility] Nucleated RBC/100 WBC (Bld) [Ratio] 0 % 0-5 [facility] MCHC Auto (RBC) [Mass/Vol]Or dered By: Desirae Yanes on 04-08-2022 MCHC (RBC) [Mass/Vol] 32.4 g/dL 32-36 [facility] No Panel InformationOrdered By: Desirae Yanes on 04-08-2022 Estimated GFR (MDRD) Amer 99 mL/min >60 [facility] Comment on above: GFR Calc Estimated GFR (MDRD) Non-Af Amer 82 mL/min >60 [facility] Comment on above: Non- GFR Calc Prostate Specific Antigen Screen 0.55 ng/mL 0.00-4.00 [facility] Comment on above: This test was perfor med using the TPSA assay method for the[facility] system. Values obtained with differentassay methods cannot be used interchangably.When changing PSA assays in the course of monitoring apatient, additional sequential testing should be carriedout to confirm baseline values. Thyroid Stimulating Hormone (TSH) 1.17 uIU/mL 0.358-3.74 [facility] Platelets bldOrdered By: Lazaro Yanes on 04-08-2022 Platelets (Bld) [#/Vol] 194 10*3/uL 150-450 [facility] Serum or plasma albumin ioana urement (mass/volume)Ordered By: Desirae Yanes on 04-08-2022 Albumin [Mass/Vol] 3.2 g/dL 3.2-5.0 [facility] Serum or plasma albumin/glob ulin mass ratioOrdered By: Desirae Yanes on 04-08-2022 Albumin/Globulin [Mass ratio] 1.0 {ratio} 0.9-2.4 [facility] Serum or plasma calcium ioana urement (mass/volume)Ordered By: Desirae Yanes on 04-08-2022 Calcium [Mass/Vol] 8.3 mg/dL 8.5-10.1 [facility] Serum or plasma cholesterol in HDL measurement (mass/volume)Ordered By: Desirae Yanes on 04-08-2022 Cholesterol in HDL [Mass/Vol] 66 mg/dL >40 [facility] Comment on above: The drugs N-Acetylcy steine and Metamizole may falsely depress this assay. Reference Range HDL <40 mg/dL Low HDL Cholesterol HDL >or= 60 mg/dL High HDL Cholesterol Serum or plasma cholesterol in VLDL measurement (mass/volume)Ordered By: Desirae Yanes on 04-08-2022 Cholesterol in VLDL [Mass/Vol] 13 mg/dL 5-40 [facility] Serum or plasma creatinine m easurement (mass/volume)Ordered By: Desirae Yanes on 04-08-2022 Creatinine [Mass/Vol] 0.97 mg/dL 0.70-1.30 [facility] Comment on above: The validity of the calculated GFR & GFRAA in patients over 70 years has not been determined. Clinical correlation is essential. Serum or plasma low density lipoprotein (LDL) cholesterol measurement (mass/volume)Ordered By: Desirae Yanes on 04-08-2022 Cholesterol in LDL [Mass/Vol] 58 mg/dL 0-130 [facility] Serum or plasma testosterone free measurement (mass/volume)Ordered By: Desirae Yanes on 04-08-2022 Testosterone Free [Mass/Vol] 50.16 ng/dL 5.00-21.00 [facility] Serum or plasma urea nitroge n measurement (mass/volume)Ordered By: Desirae Yanes on 04-08-2022 Urea nitrogen [Mass/Vol] 11 mg/dL 7-18 [facility] Thin prep Papanicolaou smear with manual screeningOrdered By: Desirae Yanes on 04-08-2022 Thin prep Papanicolaou smear with manual screening 25 U/L 15-37 [facility] Thin prep Papanicolaou smear with manual screening 5 5-15 [facility] Basophil percentageOrdered B y: Dr. Krause on 02-01-2022 Testosterone [Mass/Vol] 777 ng/dL 264-916 [facility] Comment on above: Adult male reference interval is based on a population ofhealthy nonobese males (BMI <30) between 19 and 39 yearsold. leighton Moreland.al. JCEM 2017,102;3752-9165. PMID:[id number]. Free testosterone percentage Ordered By: Dr. Krause on 02-01-2022 Testosterone Free/Testosterone.total [Mass fraction] 2.49 % 1.50-4.20 [facility] Comment on above: Performed at: [employer] [address] [id number] Director: Jose Angel Marks PhD, Phone: [phone] at: [facility] [address] [id number] Director: Susan Rojas MD, Phone: [phone] Serum or plasma testosterone free measurement (mass/volume)Ordered By: Dr. Krause on 02-01-2022 Testosterone Free [Mass/Vol] 19.35 ng/dL 5.00-21.00 [facility] Basophil percentageon 2021 Bilirubin [Mass/Vol] 0.30 mg/dL 0.20-1.00 [facility] Work Phone: Comment on above: For patients on eltr ombopag therapy, use of Dimension [place] TBIL is not recommended. Chloride [Moles/Vol] 107 mmol/L 98-107 [facility] Work Phone: Glucose [Mass/Vol] 98 mg/dL 74-106 [facility] Work Phone: Potassium [Moles/Vol] 4.2 mmol/L 3.5-5.1 [facility] Work Phone: Protein [Mass/Vol] 7.2 g/dL 6.4-8.2 [facility] Work Phone: Sodium [Moles/Vol] 142 mmol/L 136-145 [facility] Work Phone: Testosterone [Mass/Vol] 78 ng/dL 264-916 [facility] Work Phone: Comment on above: Adult male reference interval is based on a population ofhealthy nonobese males (BMI <30) between 19 and 39 yearsold. leighton Moreland.al. JCEM 2017,102;7600-5387. PMID:[id number]. Free testosterone percentage on 12-09-2021 Testosterone Free/Testosterone.total [Mass fraction] 1.17 % 1.50-4.20 [facility] Work Phone: Comment on above: Performed at: [address] [id number] Director: Jose Angel Marks PhD, Phone: [phone] at: [facility] [address] [id number] Director: Susan Rojas MD, Phone: [phone] Laboratory - Chemistry and C hemistry - challengeon 12-09-2021 ALP [Catalytic activity/Vol] 62 U/L 45-117 [facility] Work Phone: ALT [Catalytic activity/Vol] 31 U/L 16-61 [facility] Work Phone: [phone] CO2 [Moles/Vol] 29.0 mmol/L 21.0-32.0 [facility] Work Phone: Globulin (S) [Mass/Vol] 3.4 g/dL 2.2-4.2 [facility] Work Phone: Urea nitrogen/Creatinine [Mass ratio] 18.8 mg/mg 10-20 [facility] Work Phone: No Panel Informationon 12-09 Estimated GFR (MDRD) Amer 84 mL/min >60 [facility] Work Phone: Comment on above: GFR Calc Estimated GFR (MDRD) Non-Af Amer 69 mL/min >60 [facility] Work Phone: Comment on above: Non- GFR Calc Serum or plasma albumin ioana urement (mass/volume)on 12-09-2021 Albumin [Mass/Vol] 3.8 g/dL 3.2-5.0 [facility] Work Phone: Serum or plasma albumin/glob ulin mass ratioon 12-09-2021 Albumin/Globulin [Mass ratio] 1.1 {ratio} 0.9-2.4 [facility] Work Phone: Serum or plasma calcium ioana urement (mass/volume)on 12-09-2021 Calcium [Mass/Vol] 8.8 mg/dL 8.5-10.1 [facility] Work Phone: Serum or plasma creatinine m easurement (mass/volume)on 12-09-2021 Creatinine [Mass/Vol] 1.12 mg/dL 0.70-1.30 [facility] Work Phone: Comment on above: The validity of the calculated GFR & GFRAA in patients over 70 years has not been determined. Clinical correlation is essential. Serum or plasma testosterone free measurement (mass/volume)on 12-09-2021 Testosterone Free [Mass/Vol] 0.91 ng/dL 5.00-21.00 [facility] Work Phone: Serum or plasma urea nitroge n measurement (mass/volume)on 12-09-2021 Urea nitrogen [Mass/Vol] 21 mg/dL 7-18 [facility] Work Phone: Thin prep Papanicolaou smear with manual screeningon 12-09-2021 Thin prep Papanicolaou smear with manual screening 26 U/L 15-37 [facility] Work Phone: Thin prep Papanicolaou smear with manual screening 6 5-15 [facility] Work Phone: Basophil percentageon 2021 Bilirubin [Mass/Vol] 0.50 mg/dL 0.20-1.00 [facility] Work Phone: Comment on above: For patients on eltr ombopag therapy, use of Dimension [place] TBIL is not recommended. Chloride [Moles/Vol] 107 mmol/L 98-107 [facility] Work Phone: Cholesterol [Mass/Vol] 169 mg/dL <200 [facility] Work Phone: Comment on above: <200 mg/dL Desirable 200-240 mg/dL Borderline >240 mg/dL High Risk Glucose [Mass/Vol] 103 mg/dL 74-106 [facility] Work Phone: Comment on above: Fasting Glucose resu lt from 100 to 125 mg/dL suggests IMPAIRED HOMEOSTASIS per A.D.A. criteria. Potassium [Moles/Vol] 4.4 mmol/L 3.5-5.1 [facility] Work Phone: Protein [Mass/Vol] 7.0 g/dL 6.4-8.2 [facility] Work Phone: Sodium [Moles/Vol] 140 mmol/L 136-145 [facility] Work Phone: Testosterone [Mass/Vol] 120 ng/dL [phone] [facility] Work Phone: Comment on above: Adult male reference interval is based on a population ofhealthy nonobese males (BMI <30) between 19 and 39 yearsold. leighton Moreland.al. JCEM 2017,102;7266-6897. PMID:[id number]. Triglyceride [Mass/Vol] 74 mg/dL <199 [facility] Work Phone: Comment on above: The drugs N-Acetylcy steine and Metamizole may falsely depress this assay.Serum Triglycerides Reference Interval Normal <150 mg/dL Borderline high 150 - 199 mg/dL High 200 - 499 mg/dL Very High > or = 500 mg/dL Free testosterone percentage on 09-19-2022 Testosterone Free/Testosterone.total [Mass fraction] 1.64 % 1.50-4.20 [facility] Work Phone: Comment on above: Performed at: [address] [id number] Director: Jose Angel Marks PhD, Phone: [phone] at: BN - [facility] [id number] Director: Susan Rojas MD, Phone: [phone] Laboratory - Chemistry and C hemistry - challengeon 11-30-2021 ALP [Catalytic activity/Vol] 62 U/L 45-117 [facility] Work Phone: ALT [Catalytic activity/Vol] 35 U/L 16-61 [facility] Work Phone: CO2 [Moles/Vol] 26.0 mmol/L 21.0-32.0 [facility] Work Phone: Globulin (S) [Mass/Vol] 3.1 g/dL 2.2-4.2 [facility] Work Phone: Urea nitrogen/Creatinine [Mass ratio] 16.7 mg/mg 10-20 [facility] Work Phone: No Panel Informationon 11-30 Estimated GFR (MDRD) Amer 88 mL/min >60 [facility] Work Phone: Comment on above: GFR Calc Estimated GFR (MDRD) Non-Af Amer 72 mL/min >60 [facility] Work Phone: Comment on above: Non- GFR Calc Serum or plasma albumin ioana urement (mass/volume)on 11-30-2021 Albumin [Mass/Vol] 3.9 g/dL 3.2-5.0 [facility] Work Phone: Serum or plasma albumin/glob ulin mass ratioon 11-30-2021 Albumin/Globulin [Mass ratio] 1.3 {ratio} 0.9-2.4 [facility] Work Phone: Serum or plasma calcium ioana urement (mass/volume)on 11-30-2021 Calcium [Mass/Vol] 9.3 mg/dL 8.5-10.1 [facility] Work Phone: Serum or plasma cholesterol in HDL measurement (mass/volume)on 11-30-2021 Cholesterol in HDL [Mass/Vol] 70 mg/dL >40 [facility] Work Phone: Comment on above: The drugs N-Acetylcy steine and Metamizole may falsely depress this assay. Reference Range HDL <40 mg/dL Low HDL Cholesterol HDL >or= 60 mg/dL High HDL Cholesterol Serum or plasma cholesterol in VLDL measurement (mass/volume)on 11-30-2021 Cholesterol in VLDL [Mass/Vol] 15 mg/dL 5-40 [facility] Work Phone: Serum or plasma creatinine m easurement (mass/volume)on 11-30-2021 Creatinine [Mass/Vol] 1.08 mg/dL 0.70-1.30 [facility] Work Phone: Comment on above: The validity of the calculated GFR & GFRAA in patients over 70 years has not been determined. Clinical correlation is essential. Serum or plasma low density lipoprotein (LDL) cholesterol measurement (mass/volume)on 11-30-2021 Cholesterol in LDL [Mass/Vol] 84 mg/dL 0-130 [facility] Work Phone: Serum or plasma testosterone free measurement (mass/volume)on 11-30-2021 Testosterone Free [Mass/Vol] 1.97 ng/dL 5.00-21.00 [facility] Work Phone: Serum or plasma urea nitroge n measurement (mass/volume)on 11-30-2021 Urea nitrogen [Mass/Vol] 18 mg/dL 7-18 [facility] Work Phone: Thin prep Papanicolaou smear with manual screeningon 11-30-2021 Thin prep Papanicolaou smear with manual screening 33 U/L 15-37 [facility] Work Phone: Thin prep Papanicolaou smear with manual screening 7 5-15 [facility] Work Phone: [phone] Absolute lymphocyte counton 11-09-2021 Lymphocytes Auto (Unsp spec) [#/Vol] 1.37 10*3/uL 0.83-4.51 [facility] Work Phone: Basophil percentageon 2021 Basophils/100 WBC (Bld) 0.4 % 0-1 [facility] Work Phone: [phone] Bilirubin [Mass/Vol] 0.30 mg/dL 0.20-1.00 [facility] Work Phone: Comment on above: For patients on eltr ombopag therapy, use of Dimension [place] TBIL is not recommended. Chloride [Moles/Vol] 107 mmol/L 98-107 [facility] Work Phone: [phone] Eosinophils/100 WBC (Bld) 1.4 % 0-5 [facility] Work Phone: [phone] Glucose [Mass/Vol] 106 mg/dL 74-106 [facility] Work Phone: Comment on above: Fasting Glucose resu lt from 100 to 125 mg/dL suggests IMPAIRED HOMEOSTASIS per A.D.A. criteria. Neutrophils (Bld) [#/Vol] 3.1 10*3/uL 2.0-7.7 [facility] Work Phone: [phone] Neutrophils/100 WBC (Bld) 62.5 % 47-70 [facility] Work Phone: [phone] Potassium [Moles/Vol] 3.8 mmol/L 3.5-5.1 [facility] Work Phone: [phone] Protein [Mass/Vol] 6.7 g/dL 6.4-8.2 [facility] Work Phone: Sodium [Moles/Vol] 140 mmol/L 136-145 [facility] Work Phone: [phone] WBC (Bld) [#/Vol] 5.0 10*3/uL 4.4-11.[address] [facility] [facility] Work [facility]: Blood erythrocytes count (nu mber/volume)on 11-09-2021 RBC (Bld) [#/Vol] 4.08 10*6/uL 4.6-6.2 [facility] Work Phone: Blood hemoglobin measurement (mass/volume)on 11-09-2021 Hemoglobin (Bld) [Mass/Vol] 12.6 g/dL 13.0-16.5 [facility] Work Phone: Blood lymphocytes/100 leukoc yteson 11-09-2021 Lymphocytes/100 WBC (Bld) 27.3 % 19-41 [facility] Work Phone: Blood monocytes/100 leukocyt eson 11-09-2021 Monocytes/100 WBC (Bld) 8.2 % 0-10 [facility] Work Phone: Blood platelet mean volumeon 11-09-2021 Platelet mean volume (Bld) [Entitic vol] 9.5 fL 6.2-12.0 [facility] Work Phone: Determination of erythrocyte mean corpuscular volume (MCV)on 11-09-2021 MCV (RBC) [Entitic vol] 88.2 fL 80-94 [facility] Work Phone: Hematocrit Auto (Bld) [Volum e fraction]on 11-09-2021 Hematocrit (Bld) [Volume fraction] 36.0 % 40-54 [facility] Work Phone: Laboratory - Chemistry and C hemistry - challengeon 11-09-2021 ALP [Catalytic activity/Vol] 60 U/L 45-117 [facility] Work Phone: ALT [Catalytic activity/Vol] 35 U/L 16-61 [facility] Work Phone: CO2 [Moles/Vol] 30.0 mmol/L 21.0-32.0 [facility] Work Phone: Globulin (S) [Mass/Vol] 3.0 g/dL 2.2-4.2 [facility] Work Phone: Urea nitrogen/Creatinine [Mass ratio] 7.3 mg/mg 10-20 [facility] Work Phone: Laboratory - Hematology and Cell countson 11-09-2021 Erythrocyte distribution width (RBC) [Entitic vol] 41.4 fL 35.1-43.9 [facility] Work Phone: Erythrocyte distribution width (RBC) [Ratio] 12.8 % 11.6-14.6 [facility] Work Phone: Immature granulocytes/100 WBC (Bld) 0.200 % 0.0-0.9 [facility] Work Phone: Comment on above: IG% - Immature Granu locytes (promyelocytes, myelocytes and metamyelocytes) > 1% indicates that a LEFT SHIFT is Present. MCH (RBC) [Entitic mass] 30.9 pg 27.0-32.0 [facility] Work Phone: Nucleated RBC/100 WBC (Bld) [Ratio] 0 % 0-5 [facility] Work Phone: MCHC Auto (RBC) [Mass/Vol]on 11-09-2021 MCHC (RBC) [Mass/Vol] 35.0 g/dL 32-36 [facility] Work Phone: No Panel Informationon 11-09 Estimated Creatinine Clearance Calc 59.69 ml/min [facility] Work Phone: Estimated GFR (MDRD) Amer 75 mL/min >60 [facility] Work Phone: Comment on above: GFR Calc Estimated GFR (MDRD) Non-Af Amer 62 mL/min >60 [facility] Work Phone: Comment on above: Non- GFR Calc Platelets bldon 11-09-2021 Platelets (Bld) [#/Vol] 174 10*3/uL 150-450 [facility] Work Phone: Serum or plasma albumin ioana urement (mass/volume)on 11-09-2021 Albumin [Mass/Vol] 3.7 g/dL 3.2-5.0 [facility] Work Phone: Serum or plasma albumin/glob ulin mass ratioon 11-09-2021 Albumin/Globulin [Mass ratio] 1.2 {ratio} 0.9-2.4 [facility] Work Phone: Serum or plasma calcium ioana urement (mass/volume)on 11-09-2021 Calcium [Mass/Vol] 9.0 mg/dL 8.5-10.1 [facility] Work Phone: Serum or plasma creatinine m easurement (mass/volume)on 11-09-2021 Creatinine [Mass/Vol] 1.24 mg/dL 0.70-1.30 [facility] Work Phone: Comment on above: The validity of the calculated GFR & GFRAA in patients over 70 years has not been determined. Clinical correlation is essential. Serum or plasma urea nitroge n measurement (mass/volume)on 11-09-2021 Urea nitrogen [Mass/Vol] 9 mg/dL 7-18 [facility] Work Phone: Thin prep Papanicolaou smear with manual screeningon 11-09-2021 Thin prep Papanicolaou smear with manual screening 28 U/L 15-37 [facility] Work Phone: Thin prep Papanicolaou smear with manual screening 3 5-15 [facility] Work Phone: Thin prep Papanicolaou smear with manual screening 220 U/L 87-241 [facility] Work Phone: Absolute lymphocyte counton 09-29-2021 Lymphocytes Auto (Unsp spec) [#/Vol] 1.19 10*3/uL 0.83-4.51 [facility] Work Phone: Basophil percentageon 2021 Basophils/100 WBC (Bld) 0.8 % 0-1 [facility] Work Phone: Eosinophils/100 WBC (Bld) 2.7 % 0-5 [facility] Work Phone: Neutrophils (Bld) [#/Vol] 2.0 10*3/uL 2.0-7.7 [facility] Work Phone: Neutrophils/100 WBC (Bld) 55.1 % 47-70 [facility] Work Phone: Testosterone [Mass/Vol] 166 ng/dL [phone] [facility] Work Phone: Comment on above: Adult male reference interval is based on a population ofhealthy nonobese males (BMI <30) between 19 and 39 yearsold. leighton Moreland.al. JCEM 2017,102;3076-1242. PMID:[id number]. WBC (Bld) [#/Vol] 3.7 10*3/uL 4.4-11.0 [facility] Work Phone: Bilirubin [Mass/Vol] 0.20 mg/dL 0.20-1.00 [facility] Work Phone: Comment on above: For patients on eltr ombopag therapy, use of Dimension [place] TBIL is not recommended. Chloride [Moles/Vol] 105 mmol/L 98-107 [facility] Work Phone: Cholesterol [Mass/Vol] 140 mg/dL <200 [facility] Work Phone: Comment on above: <200 mg/dL Desirable 200-240 mg/dL Borderline >240 mg/dL High Risk Glucose [Mass/Vol] 103 mg/dL 74-106 [facility] Work Phone: Comment on above: Fasting Glucose resu lt from 100 to 125 mg/dL suggests IMPAIRED HOMEOSTASIS per A.D.A. criteria. Potassium [Moles/Vol] 4.3 mmol/L 3.5-5.1 [facility] Work Phone: Protein [Mass/Vol] 6.8 g/dL 6.4-8.2 [facility] Work Phone: Sodium [Moles/Vol] 141 mmol/L 136-145 [facility] Work Phone: Triglyceride [Mass/Vol] 55 mg/dL <199 [facility] Work Phone: Comment on above: The drugs N-Acetylcy steine and Metamizole may falsely depress this assay.Serum Triglycerides Reference Interval Normal <150 mg/dL Borderline high 150 - 199 mg/dL High 200 - 499 mg/dL Very High > or = 500 mg/dL Blood erythrocytes count (nu mber/volume)on 09-29-2021 RBC (Bld) [#/Vol] 4.34 10*6/uL 4.6-6.2 [facility] Work Phone: Blood hemoglobin measurement (mass/volume)on 09-29-2021 Hemoglobin (Bld) [Mass/Vol] 13.0 g/dL 13.0-16.5 [facility] Work Phone: Blood lymphocytes/100 leukoc yteson 09-29-2021 Lymphocytes/100 WBC (Bld) 32.4 % 19-41 [facility] Work Phone: Blood monocytes/100 leukocyt eson 09-29-2021 Monocytes/100 WBC (Bld) 9.0 % 0-10 [facility] Work Phone: Blood platelet mean volumeon 09-29-2021 Platelet mean volume (Bld) [Entitic vol] 9.4 fL 6.2-12.0 [facility] Work Phone: Determination of erythrocyte mean corpuscular volume (MCV)on 09-29-2021 MCV (RBC) [Entitic vol] 89.4 fL 80-94 [facility] Work Phone: Direct bilirubinon 2 Bilirubin.direct [Mass/Vol] 0.11 mg/dL 0.00-0.30 [facility] Work Phone: Free testosterone percentage on 09-29-2021 Testosterone Free/Testosterone.total [Mass fraction] 1.05 % 1.50-4.20 [facility] Work Phone: Hematocrit Auto (Bld) [Volum e fraction]on 09-29-2021 Hematocrit (Bld) [Volume fraction] 38.8 % 40-54 [facility] Work Phone: Laboratory - Chemistry and C hemistry - challengeon 09-29-2021 ALP [Catalytic activity/Vol] 59 U/L 45-117 [facility] Work Phone: ALT [Catalytic activity/Vol] 35 U/L 16-61 [facility] Work Phone: [phone] CO2 [Moles/Vol] 30.0 mmol/L 21.0-32.0 [facility] Work Phone: Globulin (S) [Mass/Vol] 3.0 g/dL 2.2-4.2 [facility] Work Phone: Urea nitrogen/Creatinine [Mass ratio] 11.0 mg/mg 10-20 [facility] Work Phone: Laboratory - Hematology and Cell countson 09-29-2021 Erythrocyte distribution width (RBC) [Entitic vol] 42.5 fL 35.1-43.9 [facility] Work Phone: Erythrocyte distribution width (RBC) [Ratio] 12.8 % 11.6-14.6 [facility] Work Phone: Immature granulocytes/100 WBC (Bld) 0.000 % 0.0-0.9 [facility] Work Phone: Comment on above: IG% - Immature Granu locytes (promyelocytes, myelocytes and metamyelocytes) > 1% indicates that a LEFT SHIFT is Present. MCH (RBC) [Entitic mass] 30.0 pg 27.0-32.0 [facility] Work Phone: Nucleated RBC/100 WBC (Bld) [Ratio] 0 % 0-5 [facility] Work Phone: MCHC Auto (RBC) [Mass/Vol]on 09-29-2021 MCHC (RBC) [Mass/Vol] 33.5 g/dL 32-36 [facility] Work Phone: No Panel Informationon 09-29 Percent Free Prostate Specific Ag 0.27 ng/mL N/A [facility] Work Phone: Comment on above: Delores ECLIA methodol ogy. Prostate Specific Antigen Total 0.6 ng/mL 0.0-4.0 [facility] Work Phone: Comment on above: Delores ECLIA methodol ogy.According to the [place] [employer], Serum PSAshould decrease and remain at undetectable levels afterradical prostatectomy. The AUA defines biochemicalrecurrence as an initial PSA value 0.2 ng/mL or greaterfollowed by a subsequent confirmatory PSA value 0.2 ng/mLor greater. Values obtained with different assay methods orkits cannot be used interchangeably. Results cannot beinterpreted as absolute evidence of the presence or absenceof malignant disease. Vitamin D 25-Hydroxy 53.8 ng/mL [facility] Work Phone: Comment on above: Vitamin D 25(OH) Sta tus Range Deficiency <20 ng/mL (50nmol/L) Insufficiency 20 - 30 ng/mL (50 - 75 nmol/L) Sufficiency 30 - 100 ng/mL (75 - 250 nmol/L) Toxicity >100 ng/mL (>250 nmol/L) Estimated GFR (MDRD) Amer 87 mL/min >60 [facility] Work Phone: Comment on above: GFR Calc Estimated GFR (MDRD) Non-Af Amer 72 mL/min >60 [facility] Work Phone: Comment on above: Non- GFR Calc Platelets bldon 09-29-2021 Platelets (Bld) [#/Vol] 179 10*3/uL 150-450 [facility] Work Phone: Serum or plasma albumin ioana urement (mass/volume)on 09-29-2021 Albumin [Mass/Vol] 3.8 g/dL 3.2-5.0 [facility] Work Phone: Serum or plasma albumin/glob ulin mass ratioon 09-29-2021 Albumin/Globulin [Mass ratio] 1.3 {ratio} 0.9-2.4 [facility] Work Phone: Serum or plasma calcium ioana urement (mass/volume)on 09-29-2021 Calcium [Mass/Vol] 9.1 mg/dL 8.5-10.1 [facility] Work Phone: Serum or plasma cholesterol in HDL measurement (mass/volume)on 09-29-2021 Cholesterol in HDL [Mass/Vol] 69 mg/dL >40 [facility] Work Phone: Comment on above: The drugs N-Acetylcy steine and Metamizole may falsely depress this assay. Reference Range HDL <40 mg/dL Low HDL Cholesterol HDL >or= 60 mg/dL High HDL Cholesterol Serum or plasma cholesterol in VLDL measurement (mass/volume)on 09-29-2021 Cholesterol in VLDL [Mass/Vol] 11 mg/dL 5-40 [facility] Work Phone: Serum or plasma creatinine m easurement (mass/volume)on 09-29-2021 Creatinine [Mass/Vol] 1.09 mg/dL 0.70-1.30 [facility] Work Phone: Comment on above: The validity of the calculated GFR & GFRAA in patients over 70 years has not been determined. Clinical correlation is essential. Serum or plasma free prostat e specific antigen/total prostate specific antigen ratioon 09-29-2021 Free PSA/Total PSA [Mass fraction] 45.0 % . [facility] Work Phone: Comment on above: The table [...] other population of men.Performed at: - [facility] [id number] [place], [place] [id number] Director: Jose Angel Marks PhD, Phone: [phone] at: - [facility] [id number] Director: Susan Rojas MD, Phone: [phone] Serum or plasma low density lipoprotein (LDL) cholesterol measurement (mass/volume)on 09-29-2021 Cholesterol in LDL [Mass/Vol] 60 mg/dL 0-130 [facility] Work Phone: Serum or plasma testosterone free measurement (mass/volume)on 09-29-2021 Testosterone Free [Mass/Vol] 1.74 ng/dL 5.00-21.00 [facility] Work Phone: Serum or plasma urea nitroge n measurement (mass/volume)on 09-29-2021 Urea nitrogen [Mass/Vol] 12 mg/dL 7-18 [facility] Work Phone: Thin prep Papanicolaou smear with manual screeningon 09-29-2021 Thin prep Papanicolaou smear with manual screening 32 U/L 15-37 [facility] Work Phone: Thin prep Papanicolaou smear with manual screening 6 5-15 [facility] Work Phone: Clinical Summary: Ingris benson 07-03-2021 MC25 OP Hand Invalid Interpretation Code [facility] Work Phone: Basophil percentageon 2021 Bilirubin [Mass/Vol] 0.60 mg/dL 0.20-1.00 [facility] Work Phone: Comment on above: For patients on eltr ombopag therapy, use of Dimension [place] TBIL is not recommended. Chloride [Moles/Vol] 107 mmol/L 98-[address] [facility] [address] [facility] Work Phone: Cholesterol [Mass/Vol] 163 mg/dL <200 [facility] Work Phone: Comment on above: <200 mg/dL Desirable 200-240 mg/dL Borderline >240 mg/dL High Risk Glucose [Mass/Vol] 97 mg/dL 74-106 [facility] Work Phone: Potassium [Moles/Vol] 4.1 mmol/L 3.5-5.1 [facility] Work Phone: Protein [Mass/Vol] 6.9 g/dL 6.4-8.2 [facility] Work Phone: Sodium [Moles/Vol] 139 mmol/L 136-145 [facility] Work Phone: Testosterone [Mass/Vol] 242 ng/dL [phone] [facility] Work Phone: Comment on above: Adult male reference interval is based on a population ofhealthy nonobese males (BMI <30) between 19 and 39 yearsold. Aniceto, et.al. JCEM 2017,102;4028-9046. PMID:[id number]. Triglyceride [Mass/Vol] 76 mg/dL <199 [facility] Work Phone: Comment on above: The drugs N-Acetylcy steine and Metamizole may falsely depress this assay.Serum Triglycerides Reference Interval Normal <150 mg/dL Borderline high 150 - 199 mg/dL High 200 - 499 mg/dL Very High > or = 500 mg/dL Free testosterone percentage on 06-22-2021 Testosterone Free/Testosterone.total [Mass fraction] 2.14 % 1.50-4.20 [facility] Work Phone: Comment on above: Performed at: [facility] [address] [id number] Director: Jose Angel Marks PhD, Phone: [phone] at: [address] [id number] Director: Susan Rojas MD, Phone: [phone] Laboratory - Chemistry and C hemistry - challengeon 06-22-2021 ALP [Catalytic activity/Vol] 59 U/L 45-117 [facility] Work Phone: ALT [Catalytic activity/Vol] 26 U/L 16-61 [facility] Work Phone: CO2 [Moles/Vol] 28.0 mmol/L 21.0-32.0 [facility] Work Phone: Globulin (S) [Mass/Vol] 3.1 g/dL 2.2-4.2 [facility] Work Phone: Urea nitrogen/Creatinine [Mass ratio] 17.6 mg/mg 10-20 [facility] Work Phone: No Panel Informationon 06-22 Estimated GFR (MDRD) Amer 100 mL/min >60 [facility] Work Phone: Comment on above: GFR Calc Estimated GFR (MDRD) Non-Af Amer 82 mL/min >60 [facility] Work Phone: Comment on above: Non- GFR Calc Thyroid Stimulating Hormone (TSH) 1.71 uIU/mL 0.358-3.74 [facility] Work Phone: Vitamin D 25-Hydroxy 32.0 ng/mL [facility] Work Phone: Comment on above: Vitamin D 25(OH) Sta tus Range Deficiency <20 ng/mL (50nmol/L) Insufficiency 20 - 30 ng/mL (50 - 75 nmol/L) Sufficiency 30 - 100 ng/mL (75 - 250 nmol/L) Toxicity >100 ng/mL (>250 nmol/L) Serum or plasma albumin ioana urement (mass/volume)on 06-22-2021 Albumin [Mass/Vol] 3.8 g/dL 3.2-5.0 [facility] Work Phone: Serum or plasma albumin/glob ulin mass ratioon 06-22-2021 Albumin/Globulin [Mass ratio] 1.2 {ratio} 0.9-2.4 [facility] Work Phone: Serum or plasma calcium ioana urement (mass/volume)on 06-22-2021 Calcium [Mass/Vol] 8.7 mg/dL 8.5-10.1 [facility] Work Phone: Serum or plasma cholesterol in HDL measurement (mass/volume)on 06-22-2021 Cholesterol in HDL [Mass/Vol] 72 mg/dL >40 [facility] Work Phone: Comment on above: The drugs N-Acetylcy steine and Metamizole may falsely depress this assay. Reference Range HDL <40 mg/dL Low HDL Cholesterol HDL >or= 60 mg/dL High HDL Cholesterol Serum or plasma cholesterol in VLDL measurement (mass/volume)on 06-22-2021 Cholesterol in VLDL [Mass/Vol] 15 mg/dL 5-40 [facility] Work Phone: Serum or plasma creatinine m easurement (mass/volume)on 06-22-2021 Creatinine [Mass/Vol] 0.97 mg/dL 0.70-1.30 [facility] Work Phone: Comment on above: The validity of the calculated GFR & GFRAA in patients over 70 years has not been determined. Clinical correlation is essential. Serum or plasma low density lipoprotein (LDL) cholesterol measurement (mass/volume)on 06-22-2021 Cholesterol in LDL [Mass/Vol] 76 mg/dL 0-130 [facility] Work Phone: Serum or plasma testosterone free measurement (mass/volume)on 06-22-2021 Testosterone Free [Mass/Vol] 5.18 ng/dL 5.00-21.00 [facility] Work Phone: Serum or plasma urea nitroge n measurement (mass/volume)on 06-22-2021 Urea nitrogen [Mass/Vol] 17 mg/dL 7-18 [facility] Work Phone: Thin prep Papanicolaou smear with manual screeningon 06-22-2021 Thin prep Papanicolaou smear with manual screening 22 U/L 15-37 [facility] Work Phone: Thin prep Papanicolaou smear with manual screening 4 5-15 [facility] Work Phone: Clinical Summary: Ingris benson 05-22-2021 MC25 OP Hand Invalid Interpretation Code [facility] Work Phone: Iron measurement (mass/mass) on 11-03-2020 Iron (Unsp spec) [Mass/Mass] 81 ug/dL 65-175 [facility] Laboratory - Chemistry and C hemistry - challengeon 11-03-2020 Cobalamin (Vitamin B12) [Mass/Vol] 756 pg/mL 211-911 [facility] Transferrin [Mass/Vol] 239 mg/dL 177-329 [facility] Comment on above: Performed at: [place] [id number] Director: Jose Angel Marks PhD, Phone: [phone] No Panel Informationon 11-03 Total Iron Binding Capacity 304 ug/dL 250-450 [facility] Serum or plasma ferritin merced surement (mass/volume)on 11-03-2020 Ferritin [Mass/Vol] 66 ng/mL 26-388 [facility] Serum or plasma folate measu rement (mass/volume)on 11-03-2020 Folate [Mass/Vol] 25.00 ng/mL 3.1-55.4 [facility] Cells counted Molgen (Bld/Ti ss) [#]on 06-08-2018 Differential Total Cells Counted Not Reportable [facility] Erythrocyte distribution wid th (RBC) [Entitic vol]on 06-08-2018 Red Cell Distribution Width Diff 44.0 fl High 35.1-43.9 [facility] Erythrocyte distribution wid th standard deviationon 06-08-2018 Erythrocyte distribution width (RBC) [Entitic vol] 44.0 fL High 35.1-43.9 [facility] Laboratory - Hematology and Cell countson 06-08-2018 Erythrocyte distribution width (RBC) [Ratio] 14.0 % 11.6-14.6 [facility] Total cell counton 9 Cells counted Molgen (Bld/Tiss) [#] Not Reportable [facility] No Panel Informationon 06-06 Addendum Document Comment . [facility] Comment on above: Protein electrophore sis scan will follow via computer,mail, or car usher delivery. Beta-Globulins (ALINA) 1.3 g/dL 0.7-1.3 [facility] Free [place] Light Chains, Quant 16.3 mg/L 3.3-19.4 [facility] Free [place]/Lambda Light Chain Ratio 1.20 0.26-1.65 [facility] Comment on above: Performed at: [place] [id number] Director: Jose Angel Marks PhD, Phone: [phone] Immunofixation Screen Comment . [facility] Comment on above: No monoclonality det ected. Protein electrophoresis pane tiffany 06-06-2017 Protein [Mass/Vol] 6.9 g/dL 6.0-8.5 [facility] Serum [id number] measu rement by electrophoresison 06-06-2017 Alpha 1 globulin Elph [Mass/Vol] 0.3 g/dL 0.0-0.4 [facility] Serum globulin measurement ( mass/volume)on 06-06-2017 Globulin (S) [Mass/Vol] 3.3 g/dL 2.2-3.9 [facility] Serum or plasma IgA measurem ent (mass/volume)on 06-06-2017 IgA [Mass/Vol] 228 mg/dL 61-437 [facility] Serum or plasma IgG measurem ent (mass/volume)on 06-06-2017 IgG [Mass/Vol] 845 mg/dL 700-1600 [facility] Serum or plasma IgM measurem ent (mass/volume)on 06-06-2017 IgM [Mass/Vol] 36 mg/dL 20-172 [facility] Serum or plasma albumin ioana urement (moles/volume)on 06-06-2017 Albumin [Moles/Vol] 3.6 g/dL 2.9-4.4 [facility] Serum or plasma immunoglobul in free lambda light chains measurement (mass/volume)on 06-06-2017 Immunoglobulin light chains.lambda.free [Mass/Vol] 13.6 mg/L 5.7-26.3 [facility] Thin prep Papanicolaou smear with manual screeningon 06-06-2017 Thin prep Papanicolaou smear with manual screening 0.9 g/dL 0.4-1.0 [facility] Thin prep Papanicolaou smear with manual screening See comment [facility] Comment on above: NOT OBSERVED Thin prep Papanicolaou smear with manual screening 1.1 0.7-1.7 [facility] Office Visiton 12-27-2016 Documentation of current medications (procedure) Done Invalid Interpretation Code [facility] Work Phone: [phone] Tobacco smoking status NHIS Never Invalid Interpretation Code [facility] Work Phone: [phone] Tobacco use CPHS Never smoker Invalid Interpretation Code [facility] Work Phone: [phone] Lab Report: DHEA Sulfateon 0 08-04-2016 DHEA SULF 4020 1646 ng/mL Invalid Interpretation Code Units converted. See lab report for original value. [facility] Work Phone: [phone] Lab Report: CBC W/Diff, Auto matedon 08-02-2016 Absolute Neut 2.9 X10 3/UL Invalid Interpretation Code 2.0-7.7 [facility] Work Phone: [phone] Basophils/100 WBC Auto (Bld) 0.4 % Invalid Interpretation Code 0-1 [facility] Work Phone: [phone] Eosinophils/100 leukocytes 1.7 % Invalid Interpretation Code 0-5 [facility] Work Phone: [phone] Erythrocyte distribution width Auto Ratio (RBC) 14.3 % Invalid Interpretation Code 11.6-14.6 [facility] Work Phone: [phone] Erythrocytes (RBC) 4.82 10*6/uL Invalid Interpretation Code 4.6-6.2 [facility] Work Phone: [phone] Hematocrit (HCT) 40.0 % Invalid Interpretation Code 40-54 [facility] Work Phone: [phone] Hemoglobin mass conc (Bld) 13.8 g/dL Invalid Interpretation Code 13.0-16.5 [facility] Work Phone: [phone] Immature granulocytes/100 WBC (Bld) 0.200 % Invalid Interpretation Code 0.0-0.9 [facility] Work Phone: [phone] Lymphocytes 1.39 X10 3/UL Invalid Interpretation Code 0.83-4.51 [facility] Work Phone: [phone] Lymphocytes/100 leukocytes 29.3 % Invalid Interpretation Code 19-41 [facility] Work Phone: [phone] MCH 28.6 pg Invalid Interpretation Code 27.0-32.0 [facility] Work Phone: [phone] MCHC mass conc (RBC) 34.5 G/GL Invalid Interpretation Code 32-36 [facility] Work Phone: [phone] MCV 83.0 fL Invalid Interpretation Code 80-94 [facility] Work Phone: [phone] Monocytes/100 leukocytes 7.6 % Invalid Interpretation Code 0-10 [facility] Work Phone: [phone] Neutrophils/100 WBC Auto (Bld) 60.8 % Invalid Interpretation Code 47-70 [facility] Work Phone: [phone] Platelets 213 10*3/mm3 Invalid Interpretation Code 150-450 [facility] Work Phone: [phone] PMV by Jorge 9.7 fL Invalid Interpretation Code 6.2-12.0 [facility] Work Phone: [phone] RDW SD 42.7 fL Invalid Interpretation Code 35.1-43.9 [facility] Work Phone: [phone]() [phone] WBC (Leukocytes) 4.8 10*3/uL Invalid Interpretation Code 4.4-11.0 [facility] Work Phone: [phone] Lab Report: [facility] Profil 08-02-2016 Alanine aminotransferase (ALT) 31 U/L Invalid Interpretation Code 12-78 [facility] Work Phone: [phone] Albumin 3.5 g/dL Invalid Interpretation Code 3.4-5.0 [facility] Work Phone: [phone] Albumin/Globulin Ratio 0.9 {ratio} Invalid Interpretation Code 0.9-2.4 [facility] Work Phone: [phone] Alkaline phosphatase (ALP) 115 U/L Invalid Interpretation Code 45-117 [facility] Work Phone: [phone] Anion gap 7 mmol/L Invalid Interpretation Code 5-15 [facility] Work Phone: [phone] Aspartate aminotransferase (AST) 24 U/L Invalid Interpretation Code 15-37 [facility] Work Phone: [phone] Bilirubin (total) 0.40 mg/dL Invalid Interpretation Code 0.20-1.00 [facility] Work Phone: [phone] BUN/Creatinine Ratio 12.6 RATIO Invalid Interpretation Code 10-20 [facility] Work Phone: [phone] Calcium 8.9 mg/dL Invalid Interpretation Code 8.5-10.1 [facility] Work Phone: [phone] Chloride 106 mmol/L Invalid Interpretation Code 98-107 [facility] Work Phone: [phone] CO2 28.0 mmol/L Invalid Interpretation Code 21.0-32.0 [facility] Work Phone: [phone] Creatinine 0.95 mg/dL Invalid Interpretation Code 0.70-1.30 [facility] Work Phone: [phone] eGFR (non-black) 85 mL/min/{1.73_m2} Invalid Interpretation Code >60 [facility] Work Phone: [phone] eGFR (non-black) 103 mL/min/{1.73_m2} Invalid Interpretation Code >60 [facility] Work Phone: [phone] Globulin 3.7 g/dL High 2.3-3.5 [facility] Work Phone: [phone] Glucose mass conc 103 mg/dL Invalid Interpretation Code 70-110 [facility] Work Phone: [phone] Potassium molar conc 4.3 mmol/L Invalid Interpretation Code 3.5-5.1 [facility] Work Phone: [phone] Protein 7.2 g/dL Invalid Interpretation Code 6.4-8.2 [facility] Work Phone: [phone] Sodium 141 mmol/L Invalid Interpretation Code 136-145 [facility] Work Phone: [phone] Urea nitrogen 12 mg/dL Invalid Interpretation Code 7-18 [facility] Work Phone: [phone] Lab Report: LDHon 08-02-2016 LDH 221 U/L Invalid Interpretation Code 87-241 [facility] Work Phone: [phone] Lab Report: Lipid Profileon 08-02-2016 Cholesterol 192 mg/dL Invalid Interpretation Code 200 [facility] Work Phone: [phone] HDL Cholesterol 61 mg/dL Invalid Interpretation Code [facility] Work Phone: [phone] LDL Cholesterol 113 mg/dL Invalid Interpretation Code 0-130 [facility] Work Phone: [phone] Triglyceride 92 mg/dL Invalid Interpretation Code [facility] Work Phone: [phone] very low density lipoproteins 18 mg/dL Invalid Interpretation Code 5-40 [facility] Work Phone: [phone] Lab Report: Uric Acidon 07-13 Urate 4.2 mg/dL Invalid Interpretation Code 3.5-7.2 [facility] Work Phone: [phone] Chart Maintenanceon 07-19-19 17 Triglyceride 92 mg/dL Invalid Interpretation Code [facility] Work Phone: [phone] [facility] Adolescent depression screening assessment Adolescent depression screening assessment Invalid Interpretation Code [facility] Work Phone: [phone] Adult depression screening assessment Adult depression screening assessment Invalid Interpretation Code [facility] Work Phone: [phone] Fall risk assessment No Invalid Interpretation Code [facility] Work Phone: [phone] Lab Report: Basic Metabolic Profile (BMP)on 03-24-2016 Creatinine 80.10 mL/min Invalid Interpretation Code [facility] Work Phone: [phone] Microbiology: MRSA/SAID SCRE ENon 03-23-2016 MRSA+SAID SCRN . Invalid Interpretation Code [facility] Work Phone: [phone] Lab Report: Erythrocyte Sed Rateon 08-18-2015 Erythrocyte sedimentation rate 23 mm/h High 0-20 [facility] Work Phone: [phone] Office Visiton 2015 Smoking cessation education (procedure) yes Invalid Interpretation Code [facility] Work Phone: [phone] Replaced Document: (P) [place] Lambda Lt Chn Ser. Mon.on 03-20-2015 FR KAPPA LT CHN 1.117 mg/dL Invalid Interpretation Code Units converted. See lab report for original value. [facility] Work Phone: [phone] FR LAMBDA LT CH 1.413 mg/dL Invalid Interpretation Code Units converted. See lab report for original value. [facility] Work Phone: [phone] KAPPA/LAMBDA % 0.79 Invalid Interpretation Code 0.26-1.65 [facility] Work Phone: [phone] Lab Report: Testosterone, To teresa / Freeon 09-19-2014 TESTOSTER %FREE 3.01 % Invalid Interpretation Code 1.50-4.20 [facility] Work Phone: [phone] Testosterone 1127 ng/dL Invalid Interpretation Code 348-1197 [facility] Work Phone: [phone] testosterone, serum, free 339.2 pg/mL High Units converted. See lab report for original value. [facility] Work Phone: [phone] Lab Report: CBC W/Diff, Auto - EPLAB Onlyon 09-18-2014 Absolute Neut 3.5 X10 3/UL Invalid Interpretation Code 2.0-7.7 [facility] Work Phone: [phone] Lab Report: CBC W/Diff, Auto matedon 09-13-2014 Lymphocytes 1.70 X10 3/UL Invalid Interpretation Code 0.83-4.51 [facility] Work Phone: [phone] Lab Report: PSA,Total - Sary al Screenon 09-13-2014 PSA,TOT SCREEN 0.78 ng/mL Invalid Interpretation Code 0.00-4.00 [facility] Work Phone: [phone] Lab Report: Thyroid Stim Hor celina (TSH)on 09-13-2014 Thyroid stimulating hormone (TSH) 1.40 u[iU]/mL Invalid Interpretation Code 0.358-3.74 [facility] Work Phone: [phone] Lab Report: ALINA + Protein El ect, Serumon 09-03-2014 IgM 30 mg/dL Low 40-230 [facility] Work Phone: [phone] M-SPIKE . Invalid Interpretation Code [facility] Work Phone: [phone] Albumin 4.1 g/dL Invalid Interpretation Code 3.2-5.6 [facility] Work Phone: [phone] Alpha 2 globulin 0.5 g/dL Invalid Interpretation Code 0.4-1.2 [facility] Work Phone: [phone] HBFMU-[id number] 0.2 g/dL Invalid Interpretation Code 0.1-0.4 [facility] Work Phone: [phone] BETA GLOBULIN 1.0 g/dL Invalid Interpretation Code 0.6-1.3 [facility] Work Phone: [phone] Gamma globulin 700 mg/dL Invalid Interpretation Code Units converted. See lab report for original value. [facility] Work Phone: [phone] IgA 203 mg/dL Invalid Interpretation Code 91-414 [facility] Work Phone: [phone] IgG 753 mg/dL Invalid Interpretation Code 700-1600 [facility] Work Phone: [phone] Lab Report: LDHon 06-19-2014 Lactate dehydrogenase (LDH) 211 U/L Invalid Interpretation Code 84-246 [facility] Work Phone: [phone] Vital Signs Date Time Vital Sign Value Performing Clinician Facility 07-19-2024 15:29-0400 Body height 167.[address] True Ibarra DO Work Phone: [facility] 07-19-2024 15:29-0400 Body mass index (BMI) [Ratio] 24 kg/m2 Dr. True Ibarra DO Work Phone: [facility] 07-19-2024 15:29-0400 Body temperature 98.8 [degF] Dr. True Ibarra DO Work Phone: [facility] 07-19-2024 15:29-0400 Body weight 67.[address] True Ibarra DO Work Phone: [facility] 07-19-2024 15:29-0400 Diastolic blood pressure 75 mm[Hg] Dr. True Ibarra DO Work Phone: [facility] 07-19-2024 15:29-0400 Heart rate 68 /min Dr. True Ibarra DO Work Phone: [facility] 07-19-2024 15:29-0400 Respiratory rate 14 /min Dr. True Ibarra DO Work Phone: [facility] 07-19-2024 15:29-0400 SaO2% (BldA) [Mass fraction] 98 % Dr. True Ibarra DO Work Phone: [facility] 07-19-2024 15:29-0400 Systolic blood pressure 133 mm[Hg] Dr. True Ibarra DO Work Phone: [facility] 04-26-2024 15:54-0500 Body height 167.[address] True Ibarra DO Work Phone: [facility] 04-26-2024 15:54-0500 Body mass index (BMI) [Ratio] 26.3 kg/m2 Dr. True Ibarra DO Work Phone: [facility] 04-26-2024 15:54-0500 Body temperature 97.8 [degF] Dr. True Ibarra DO Work Phone: [facility] 04-26-2024 15:54-0500 Body weight 73.[address] True Ibarra DO Work Phone: [facility] 04-26-2024 15:54-0500 Diastolic blood pressure 68 mm[Hg] Dr. True Ibarra DO Work Phone: [facility] 04-26-2024 15:54-0500 Heart rate 72 /min Dr. True Ibarra DO Work Phone: [facility] 04-26-2024 15:54-0500 Respiratory rate 16 /min Dr. True Ibarra DO Work Phone: [facility] 04-26-2024 15:54-0500 SaO2% (BldA) [Mass fraction] 99 % Dr. True Ibarra DO Work Phone: [facility] 04-26-2024 15:54-0500 Systolic blood pressure 134 mm[Hg] Dr. True Ibarra DO Work Phone: [facility] 04-04-2024 13:26-0500 Body mass index (BMI) [Ratio] 25.9 kg/m2 Dr. True Ibarra DO Work Phone: [facility] 04-04-2024 13:26-0500 Body temperature 98.7 [degF] Dr. True Ibarra DO Work Phone: [facility] 04-04-2024 13:26-0500 Body weight 72.[address] rTue Ibarra DO Work Phone: [facility] 04-04-2024 13:26-0500 Diastolic blood pressure 66 mm[Hg] Dr. True Ibarra DO Work Phone: [facility] 04-04-2024 13:26-0500 Heart rate 75 /min Dr. True Ibarra DO Work Phone: [facility] 04-04-2024 13:26-0500 Respiratory rate 18 /min Dr. True Ibarra DO Work Phone: [facility] 04-04-2024 13:26-0500 SaO2% (BldA) [Mass fraction] 100 % Dr. True Ibarra DO Work Phone: [facility] 04-04-2024 13:26-0500 Systolic blood pressure 137 mm[Hg] Dr. True Ibarra DO Work Phone: [facility] 03-22-2024 08:30-0500 Body mass index (BMI) [Ratio] 25 kg/m2 Dr. True Ibarra DO Work Phone: [facility] 03-22-2024 08:30-0500 Body weight 70.[address] True Ibarra DO Work Phone: [facility] 03-22-2024 08:30-0500 Diastolic blood pressure 67 mm[Hg] Dr. True Ibarra DO Work Phone: [facility] 03-22-2024 08:30-0500 Heart rate 62 /min Dr. True Ibarra DO Work Phone: [facility] 03-22-2024 08:30-0500 Respiratory rate 16 /min Dr. True Ibarra DO Work Phone: [facility] 03-22-2024 08:30-0500 Systolic blood pressure 117 mm[Hg] Dr. True Ibarra DO Work Phone: [facility] 03-21-2024 08:07-0500 Body mass index (BMI) [Ratio] 25 kg/m2 Dr. True Ibarra DO Work Phone: [facility] 03-21-2024 08:07-0500 Body weight 70.[address] True Ibarra DO Work Phone: [facility] 03-24-2023 09:00-0500 Body height 167.[address] True Ibarra Work Phone: [facility] 03-24-2023 09:00-0500 Body mass index (BMI) [Ratio] 26 kg/m2 Dr. True Ibarra Work Phone: [facility] 03-24-2023 09:00-0500 Body weight 73.[address] True Ibarra Work Phone: [facility] 03-24-2023 09:00-0500 Diastolic blood pressure 65 mm[Hg] Dr. True Ibarra Work Phone: [facility] 03-24-2023 09:00-0500 Heart rate 60 /min Dr. True Ibarra Work Phone: [facility] 03-24-2023 09:00-0500 Respiratory rate 14 /min Dr. True Ibarra Work Phone: [facility] 03-24-2023 09:00-0500 Systolic blood pressure 119 mm[Hg] Dr. True Ibarra Work Phone: [facility] 03-08-2023 14:27-0500 Body height 167.[address] True Ibarra Work Phone: [facility] 12-26-2023 14:27-0500 Body mass index (BMI) [Ratio] 26.2 kg/m2 Dr. True Ibarra Work Phone: [facility] 03-08-2023 14:27-0500 Body temperature 99.2 [degF] Dr. True Ibarra Work Phone: [facility] 03-08-2023 14:27-0500 Body weight 73.[address] True Ibarra Work Phone: [facility] 03-08-2023 14:27-0500 Diastolic blood pressure 76 mm[Hg] Dr. True Ibarra Work Phone: [facility] 03-08-2023 14:27-0500 Heart rate 64 /min Dr. True Ibarra Work Phone: [facility] 03-08-2023 14:27-0500 Respiratory rate 18 /min Dr. True Ibarra Work Phone: [facility] 03-08-2023 14:27-0500 SaO2% (BldA) [Mass fraction] 100 % Dr. True Ibarra Work Phone: [facility] 03-08-2023 14:27-0500 Systolic blood pressure 152 mm[Hg] Dr. True Ibarra Work Phone: [facility] 02-21-2023 09:09-0500 Body height 167.[address] True Ibarra Work Phone: [facility] 02-21-2023 09:08-0500 Body mass index (BMI) [Ratio] 26.2 kg/m2 Dr. True Ibarra Work Phone: [facility] 02-21-2023 09:08-0500 Body temperature 97.5 [degF] Dr. True Ibarra Work Phone: [facility] 02-21-2023 09:08-0500 Body weight 73.[address] True Ibarra Work Phone: [facility] 02-21-2023 09:08-0500 Diastolic blood pressure 81 mm[Hg] Dr. True Ibarra Work Phone: [facility] 02-21-2023 09:08-0500 Heart rate 71 /min Dr. True Ibarra Work Phone: [facility] 02-21-2023 09:08-0500 Respiratory rate 18 /min Dr. True Ibarra Work Phone: [facility] 02-21-2023 09:08-0500 SaO2% (BldA) [Mass fraction] 98 % Dr. True Ibarra Work Phone: [facility] 02-21-2023 09:08-0500 Systolic blood pressure 141 mm[Hg] Dr. True Ibarra Work Phone: [facility] 11-08-2022 15:03-0400 Body height 167.[address] True Ibarra Work Phone: [facility] 11-08-2022 15:00-0400 Body mass index (BMI) [Ratio] 26.6 kg/m2 Dr. True Ibarra Work Phone: [facility] 11-08-2022 15:00-0400 Body temperature 99.6 [degF] Dr. True Ibarra Work Phone: [facility] 11-08-2022 15:00-0400 Body weight 75.[address] True Ibarra Work Phone: [facility] 11-08-2022 15:00-0400 Diastolic blood pressure 72 mm[Hg] Dr. True Ibarra Work Phone: [facility] 11-08-2022 15:00-0400 Heart rate 76 /min Dr. True Ibarra Work Phone: [facility] 11-08-2022 15:00-0400 Respiratory rate 18 /min Dr. True Ibarra Work Phone: [facility] 11-08-2022 15:00-0400 SaO2% (BldA) [Mass fraction] 98 % Dr. True Ibarra Work Phone: [facility] 11-08-2022 15:00-0400 Systolic blood pressure 149 mm[Hg] Dr. True Ibarra Work Phone: [facility] 09-08-2022 08:56-0400 Body height 167.[address] True Ibarra Work Phone: [facility] 09-08-2022 08:55-0400 Body mass index (BMI) [Ratio] 27.1 kg/m2 Dr. True Ibarra Work Phone: [facility] 09-08-2022 08:55-0400 Body weight 76.[address] True Ibarra Work Phone: [facility] 09-08-2022 08:55-0400 Diastolic blood pressure 56 mm[Hg] Dr. True Ibarra Work Phone: [facility] 09-08-2022 08:55-0400 Heart rate 73 /min Dr. True Ibarra Work Phone: [facility] 09-08-2022 08:55-0400 Respiratory rate 18 /min Dr. True Ibarra Work Phone: [facility] 09-08-2022 08:55-0400 SaO2% (BldA) [Mass fraction] 100 % Dr. True Ibarra Work Phone: [facility] 09-08-2022 08:55-0400 Systolic blood pressure 111 mm[Hg] Dr. True Ibarra Work Phone: [facility] 03-10-2022 08:29-0500 Body height 167.[address] True Ibarra Work Phone: [facility] 03-10-2022 08:29-0500 Body mass index (BMI) [Ratio] 23.1 kg/m2 Dr. True Ibarra Work Phone: [facility] 03-10-2022 08:29-0500 Body weight 73.[address] True Ibarra Work Phone: [facility] 03-10-2022 08:29-0500 Diastolic blood pressure 76 mm[Hg] Dr. True Ibarra Work Phone: [facility] 03-10-2022 08:29-0500 Heart rate 63 /min Dr. True Ibarra Work Phone: [facility] 03-10-2022 08:29-0500 Respiratory rate 18 /min Dr. True Ibarra Work Phone: [facility] 03-10-2022 08:29-0500 SaO2% (BldA) [Mass fraction] 100 % Dr. True Ibarra Work Phone: [facility] 03-10-2022 08:29-0500 Systolic blood pressure 136 mm[Hg] Dr. True Ibarra Work Phone: [facility] 12-08-2021 14:29-0400 Body height 167.[address] True Ibarra Work Phone: [facility] Work Phone: 11-09-2021 14:59-0400 Body height 167.[address] True Ibarra Work Phone: [facility] Work Phone: 11-09-2021 14:59-0400 Body mass index (BMI) [Ratio] 26.3 kg/m2 Dr. True Ibarra Work Phone: [facility] Work Phone: 11-09-2021 14:59-0400 Body weight 73.[address] True Ibarra Work Phone: [facility] Work Phone: 11-09-2021 14:59-0400 Diastolic blood pressure 64 mm[Hg] Dr. True Ibarra Work Phone: [facility] Work Phone: 11-09-2021 14:59-0400 Heart rate 60 /min Dr. True Ibarra Work Phone: [facility] Work Phone: 11-09-2021 14:59-0400 Respiratory rate 16 /min Dr. True Ibarra Work Phone: [facility] Work Phone: 11-09-2021 14:59-0400 Systolic blood pressure 128 mm[Hg] Dr. True Ibarra Work Phone: [facility] Work Phone: 11-09-2021 14:47-0400 Body mass index (BMI) [Ratio] 26.6 kg/m2 Dr. True Ibarra Work Phone: [facility] Work Phone: 11-09-2021 14:47-0400 Body temperature 98.7 [degF] Dr. True Ibarra Work Phone: [facility] Work Phone: 11-09-2021 14:47-0400 Body weight 74.[address] True Ibarra Work Phone: [facility] Work Phone: 11-09-2021 14:47-0400 Diastolic blood pressure 69 mm[Hg] Dr. True Ibarra Work Phone: [facility] Work Phone: 11-09-2021 14:47-0400 Heart rate 65 /min Dr. True Ibarra Work Phone: [facility] Work Phone: 11-09-2021 14:47-0400 Respiratory rate 15 /min Dr. True Ibarra Work Phone: [facility] Work Phone: 11-09-2021 14:47-0400 SaO2% (BldA) [Mass fraction] 99 % Dr. True Ibarra Work Phone: [facility] Work Phone: 11-09-2021 14:47-0400 Systolic blood pressure 118 mm[Hg] Dr. True Ibarra Work Phone: [facility] Work Phone: 05-29-2021 12:50-0400 Body height 167.[address] True Ibarra Work Phone: [facility] Work Phone: 05-26-2021 08:32-0400 Body mass index (BMI) [Ratio] 27.1 kg/m2 Dr. True Ibarra Work Phone: [facility] Work Phone: 05-26-2021 08:32-0400 Body weight 76.[address] True Ibarra Work Phone: [facility] Work Phone: 05-26-2021 08:32-0400 Diastolic blood pressure 73 mm[Hg] Dr. True Ibarra Work Phone: [facility] Work Phone: 05-26-2021 08:32-0400 Heart rate 58 /min Dr. True Ibarra Work Phone: [facility] Work Phone: 05-26-2021 08:32-0400 Respiratory rate 16 /min Dr. True Ibarra Work Phone: [facility] Work Phone: 05-26-2021 08:32-0400 SaO2% (BldA) [Mass fraction] 100 % Dr. True Ibarra Work Phone: [facility] Work Phone: 05-26-2021 08:32-0400 Systolic blood pressure 136 mm[Hg] Dr. True Ibarra Work Phone: [facility] Work Phone: 07-28-2020 10:31-0400 Body mass index (BMI) [Ratio] 24.5 kg/m2 Dr. True Ibarra Work Phone: [facility] 06-08-2018 13:46-0400 Body temperature 98.7 [degF] Dr. True Ibarra Work Phone: [facility] 06-08-2018 13:46-0400 Body weight 86.[address] True Ibarra Work Phone: [facility] Work Phone: 06-08-2018 13:46-0400 Diastolic blood pressure 83 mm[Hg] Dr. True Ibarra Work Phone: [facility] 06-08-2018 13:46-0400 Heart rate 69 /min Dr. True Ibarra Work Phone: [facility] 06-08-2018 13:46-0400 Respiratory rate 14 /min Dr. True Ibarra Work Phone: [facility] 06-08-2018 13:46-0400 SaO2% (BldA) [Mass fraction] 98 % Dr. True Ibarra Work Phone: [facility] 06-08-2018 13:46-0400 Systolic blood pressure 145 mm[Hg] Dr. True Ibarra Work Phone: [facility] 07-12-2016 08:38-0400 BMI (Body Mass Index) 26.36 kg/m2 Kavya [facility] Work Phone: 07-12-2016 08:38-0400 Body Temperature 98 [degF] Kavya Dinero [facility] Work Phone: 07-12-2016 08:38-0400 Body Temperature 98.01 [degF] [facility] Work Phone: 07-12-2016 08:38-0400 BP Diastolic 75 mm[Hg] [facility] Work Phone: 07-12-2016 08:38-0400 BP Systolic 135 mm[Hg] [facility] Work Phone: 07-12-2016 08:38-0400 Height 179.07 cm [facility] Work Phone: 07-12-2016 08:38-0400 Pulse (Heart Rate) 75 /min [facility] Work Phone: 07-12-2016 08:38-0400 Respiratory Rate 16 /min [facility] Work Phone: 07-12-2016 08:38-0400 Weight 84.55 kg [facility] Work Phone: 09-16-2015 10:27-0400 BSA (Body Surface Area) 2.12 m2 [facility] Work Phone: NEGATED: Highlighted [id number] 08:26-0400 Body height 175.26 cm Salud Ziats AT [facility] Work Phone: NEGATED: Highlighted [id number] 08:26-0400 Body height 175 cm Salud Ziats AT [facility] Work Phone: NEGATED: Highlighted [id number] 08:26-0400 Body mass index (BMI) [Ratio] 23.71 kg/m2 Salud Ziats AT [facility] Work Phone: NEGATED: Highlighted [id number] 08:26-0400 Body weight 72.58 kg Salud King AT [facility] Work Phone: NEGATED: Highlighted [id number] 08:26-0400 Body weight 73 kg Salud King AT [facility] Work Phone: NEGATED: Highlighted [id number] 09:16-0500 Body height 175.26 cm Florence Diesch [employer] [facility] Work Phone: NEGATED: Highlighted [id number] 09:16-0500 Body height 175 cm Florence Diesch [employer] [facility] Work Phone: NEGATED: Highlighted [id number] 09:16-0500 Body mass index (BMI) [Ratio] 23.71 kg/m2 Florence Diesch [employer] [facility] Work Phone: NEGATED: Highlighted [id number] 09:16-0500 Body weight 72.58 kg Florence Diesch [employer] [facility] Work Phone: NEGATED: Highlighted [id number] 09:16-0500 Body weight 73 kg Florence Diesch [employer] [facility] Work Phone: Encounters Encounter Date Encounter Type Care Provider Facility Start: 01-10-2025 End: 01-10-2025 ambulatory True Ibarra Facility:[facility] Start: 12-04-2024 End: 12-04-[address] True Ibarra DO Work Phone: -[facility] [place] Start: 12-04-2024 End: 12-04-[address] Holly Arzola MD -[facility] [place] Work Phone: Start: 12-04-2024 End: 12-04-2024 ambulatory Holly Arzola Facility:[facility] Start: 10-08-2024 End: 10-08-[address] True Ibarra DO Work Phone: -[facility] [place] Start: 10-08-2024 End: 10-08-[address] Holly Arzola MD -[facility] [place] Work Phone: Start: 10-08-2024 End: 10-08-2024 ambulatory [facility] Facility:[facility] Start: 09-28-2024 End: 09-28-[address] True Ibarra DO Work Phone: -Physical Therapy Start: 09-28-2024 End: 09-28-[address] Reginaldo Blank DO -Physical Therapy Work Phone: Start: 07-19-2024 End: 07-19-[address] Reginaldo Nava MD -[facility] Work Phone: Start: 07-19-2024 End: 07-19-2024 ambulatory [facility] Facility[facility] Start: 07-19-[address] Reginaldo Nava MD -[facility] Start: 07-05-2024 End: 07-05-[address] Holly Arzola MD -[place] Work Phone: Start: 07-05-2024 End: 07-05-2024 ambulatory [facility] Facility:[facility] Start: 07-02-2024 End: 07-02-[address] Reginaldo Blank DO -[place] Work Phone: Start: 07-02-2024 End: 07-02-2024 ambulatory [facility] Facility:[facility] Start: 06-06-2024 End: 06-06-[address] True Ibarra DO Work Phone: [facility] Work Phone: Start: 06-06-2024 End: 06-06-[address] Reginaldo Blank DO -Physical Therapy Work Phone: Start: 04-26-2024 End: 04-26-2024 Patient encounter procedure Ilsa Santillan NP-C -[facility] Work Phone: Start: 04-26-2024 End: 04-26-2024 ambulatory [facility] Facility:[facility] Start: 04-26-2024 End: 04-26-2024 ambulatory [facility] Facility:[facility] Start: 04-23-2024 End: 04-23-[address] Holly Arzola MD -[facility] Work Phone: Start: 04-23-2024 End: 04-23-2024 ambulatory [facility] Facility:[facility] Start: 04-11-2024 End: 04-11-[address] Reginaldo Blank DO -[facility] Work Phone: Start: 04-11-2024 End: 04-11-2024 [facility] Start: 04-04-[address] Reginaldo Nava MD -[facility] Start: 04-04-2024 End: 04-04-[address] Reginaldo Nava MD -[facility] Work Phone: Start: 04-04-2024 End: 04-04-2024 ambulatory [facility] Facility:[facility] Start: 03-22-2024 End: 03-22-2024 Patient encounter procedure Cody Ryder NP-M[place] -[facility] Work Phone: Start: 03-22-2024 End: 03-22-2024 ambulatory Cody Ryder Facility:[facility] Start: 03-21-2024 End: 03-21-[address] [facility] Start: 03-21-2024 End: 03-21-2024 ambulatory [facility] Start: 01-31-2024 End: 01-31-2024 ambulatory [facility] Facility:[facility] Start: 07-08-[address] True Ibarra Work Phone: [facility]-Physical Therapy Work Phone: Start: 07-06-2023 End: 07-06-[address] True Ibarra Work Phone: [facility] Work Phone: Start: 07-06-2023 End: 07-06-[address] True Ibarra Work Phone: [facility] Work Phone: Start: 05-13-[address] [facility] Work Phone: Start: 05-10-2023 End: 05-10-[address] True Ibarra Work Phone: [facility] Work Phone: Start: 05-10-2023 End: 05-10-[address] True Ibarra Work Phone: [facility] Work Phone: Start: 03-24-2023 End: 03-24-[address] True Ibarra Work Phone: [facility] Work Phone: Start: 03-15-2023 End: 03-15-[address] True Ibarra Work Phone: [facility] Work Phone: Start: 03-15-2023 End: 03-15-[address] True Ibarra Work Phone: [facility] Work Phone: Start: 03-08-2023 End: 03-08-[address] True Ibarra Work Phone: [facility] Work Phone: Start: 03-03-2023 End: 03-03-[address] True Ibarra Work Phone: [facility] Work Phone: Start: 03-02-2023 End: 03-02-[address] True Ibarra Work Phone: [facility] Work Phone: Start: 02-21-[address] True Ibarra Work Phone: [facility] Start: 02-21-2023 End: 02-21-[address] True Ibarra Work Phone: [facility] Work Phone: Start: 02-16-2023 End: 02-16-[address] True Ibarra Work Phone: [facility] Work Phone: Start: 02-16-2023 End: 02-16-[address] True Ibarra Work Phone: [facility] Work Phone: Start: 02-11-2023 Non-patient / Non-visit Dr. Jose Ibarra Work Phone: [facility] Work Phone: Start: 02-10-2023 Non-patient / Non-visit Dr. Jose Ibarra Work Phone: [facility] Start: 02-10-2023 End: 02-10-[address] True Ibarra Work Phone: [facility] Work Phone: Start: 02-10-2023 End: 02-10-[address] [facility] Work [facility] Start: 01-05-2023 End: 01-05-[address] True Ibarra Work Phone: [facility] Work Phone: Start: 01-05-2023 End: 01-05-[address] [facility]bar[facility] [place] Work Phone: Start: 01-05-2023 End: 01-05-[address] True Ibarra Work Phone: [facility] Work Phone: Start: 12-30-2022 End: 12-30-[address] True Ibarra Work Phone: [facility] Work Phone: Start: 12-30-2022 End: 12-30-[address] [facility]bar[facility] Work Phone: Start: 12-29-2022 End: 12-29-[address] True Ibarra Work Phone: [facility] Work Phone: Start: 12-29-2022 End: 12-29-[address] [facility]bar[facility] Start: 12-20-2022 End: 12-20-[address] True Ibarra Work Phone: [facility] Work Phone: Start: 11-17-2022 End: 11-17-[address] True Ibarra Work Phone: [facility] Work Phone: Start: 11-17-2022 End: 11-17-[address] True Ibarra Work Phone: [facility] Work Phone: Start: 11-09-2022 End: 11-09-[address] True Ibarra Work Phone: [facility] Work Phone: Start: 11-09-2022 End: 11-09-[address] True Ibarra Work Phone: [facility] Start: 11-08-2022 End: 11-08-[address] True Ibarra Work Phone: [facility] Work Phone: Start: 11-08-[address] True Ibarra Work Phone: [facility] Start: 10-08-2022 End: 10-08-[address] True Ibarra Work Phone: [facility] Work Phone: Start: 09-08-2022 End: 09-08-[address] True Ibarra Work Phone: [facility] Work Phone: Start: 08-25-2022 End: 08-25-[address] True Ibarra Work Phone: [facility] Work Phone: Start: 08-02-2022 End: 08-02-[address] True Ibarra Work Phone: [facility] Work Phone: Start: 08-02-2022 End: 08-02-[address] [facility] Start: 05-17-2022 End: 05-17-[address] True Ibarra Work Phone: [facility], [place] Start: 05-05-2022 End: 05-05-[address] True Ibarra Work Phone: [facility] Start: 04-29-2022 End: 04-29-[address] True Ibarra Work Phone: [facility] Work Phone: Start: 04-29-2022 End: 04-29-[address] True Ibarra Work Phone: [facility] Start: 04-19-2022 End: 04-19-[address] True Ibarra Work Phone: [facility] Work Phone: Start: 04-19-2022 End: 04-19-[address] [facility]bar[facility] Start: 04-15-2022 End: 04-15-[address] True Ibarra Work Phone: [facility] Work Phone: Start: 04-15-2022 End: 04-15-[address] True Ibarra Work Phone: [facility]-Cardiovascular Services Start: 04-14-2022 End: 04-14-[address] True Ibarra Work Phone: [facility] Work Phone: Start: 04-14-2022 End: 04-14-[address] [facility]bar[facility] Start: 04-14-2022 End: 04-14-[address] True Ibarra Work Phone: [facility] Start: 04-12-2022 End: 04-12-[address] True Ibarra Work Phone: [facility] Start: 04-08-2022 End: 04-08-[address] True Ibarra Work Phone: [facility] Work Phone: Start: 04-08-2022 End: 04-08-[address] [facility]bar[facility] Start: 03-19-2022 End: 03-19-[address] True Ibarra Work Phone: [facility] Start: 03-10-2022 End: 03-10-[address] True Ibarra Work Phone: [facility] Start: 03-09-2022 End: 03-09-[address] True Ibarra Work Phone: [facility] Work Phone: Start: 03-09-2022 End: 03-09-[address] True Ibarra Work Phone: [facility]-Occupational Therapy Start: 03-09-[address] True Ibarra Work Phone: [facility]-Occupational Therapy Start: 02-08-2022 End: 02-08-[address] True Ibarra Work Phone: [facility] Start: 02-01-2022 End: 02-01-[address] [facility] Start: 01-28-2022 End: 01-28-[address] True Ibarra Work Phone: [facility] Work Phone: Start: 01-28-2022 End: 01-28-[address] True Ibarra Work Phone: [facility] - [facility] Start: 01-25-[address] True Ibarra Work Phone: [facility]-Occupational Therapy Start: 01-18-2022 End: 01-18-[address] True Ibarra Work Phone: [facility] Start: 12-21-2021 Non-patient / Non-visit Dr. Jose Ibarra Work Phone: [facility] Start: 12-21-2021 End: 12-21-[address] True Ibarra Work Phone: [facility] Work Phone: Start: 12-21-2021 End: 12-21-[address] True Ibarra Work Phone: [facility]-Cardiovascular Services Start: 12-09-2021 End: 12-09-[address] Ture Ibarra Work Phone: [facility] Work Phone: Start: 12-09-2021 End: 12-09-[address] True Ibarra Work Phone: [facility]-Laboratory Start: 12-08-2021 End: 12-08-[address] True Ibarra Work Phone: [facility] Start: 12-07-2021 End: 12-07-[address] True Ibarra Work Phone: [facility] Work Phone: Start: 12-07-2021 End: 12-07-[address] True Ibarra Work Phone: [facility]-Radiology, [place] Start: 11-30-2021 End: 11-30-[address] True Ibarra Work Phone: [facility] Work Phone: Start: 11-30-2021 End: 11-30-[address] True Ibarra Work Phone: [facility] Start: 11-09-2021 End: 11-09-[address] True Ibarra Work Phone: [facility] Cancer Care Start: 11-09-[address] True Ibarra Work Phone: [facility] On[facility] Start: 09-29-2021 End: 09-29-[address] True Ibarra Work Phone: [facility]-Laboratory Start: 08-20-2021 End: 08-20-[address] True Ibarra Work Phone: [facility] Start: 07-15-2021 End: 07-15-[address] True Ibarra Work Phone: [facility] Start: 07-03-2021 End: 07-03-2021 Ot evaluation Cody Cui MD Work Phone: [facility] Work Phone: Start: 06-26-[address] True Ibarra Work Phone: [facility]-Occupational Therapy Start: 06-22-2021 End: 06-22-[address] True Ibarra Work Phone: [facility]-Laboratory Start: 06-01-2021 End: 06-01-[address] True Ibarra Work Phone: [facility] Start: 05-26-2021 End: 05-26-[address] True Ibarra Work Phone: [facility] Heart Group Start: 05-22-2021 End: 05-22-2021 Ot evaluation Nisa Conley PA-C Work Phone: [facility] Work Phone: Start: 04-03-2021 End: 04-03-[address] True Ibarra Work Phone: [facility] Start: 05-02-2017 Ambulatory [facility] Start: 03-23-2017 Ambulatory [facility] Start: 09-22-2016 [facility] Procedures Date Procedure Procedure Detail Performing Clinician [...] ng/mL 0.0-4.0 Delores ECLIA methodology.According to the [place] [employer], Serum PSA should decrease and [...] population of men TESTING PERFORMED AT [facility]. ORIGINAL REPORT ON FILE IN LAB CONTAINS ADDITIONAL TEST SITE INFORMATION. ____ Start: 04-04-2024 Albumin/Globulin ratio Dr. True Iabrra DO Work Phone: Start: 04-04-2024 Fibrinogen assay, [...] of coronary artery stent placement Cody Ryder MENTAL HEALTH COORDINATOR-C Comment on above: PCI-CHRISTAL-Mid LAD w/ 3 [...] 03-24-2016 Radiologic exam knee complete 4/more views Jennei Hayes Work Phone: Start: 03-10-2015 End: 03-18-2015 [...] Activity Detail Author Start: 03-21-2024 Patient referral [facility] Work Phone: Start: 03-15-2023 Testosterone measurement [facility] Start: 01-05-2023 Hepatitis B surface antigen measurement [facility] Start: 01-05-2023 Hepatitis C antibody measurement [facility] Start: 01-05-2023 [facility] Start: 08-28-2021 End: 08-28-2021 Patient encounter procedure Appointment [facility] Work Phone: Start: 07-03-2021 End: 07-03-2021 Patient encounter procedure Appointment [facility] Work Phone: Start: 05-22-2021 End: 05-22-2021 Patient encounter procedure Appointment [facility] Work Phone: Start: 12-09-2016 [facility] Start: 09-22-2016 End: 09-22-2016 Radex shoulder complete minimum 2 views X-Ray, Shoulder [facility] Work Phone: Start: 09-16-2016 End: 03-24-2016 *CBC with Differential *CBC with Differential [facility] Work Phone: Start: 09-16-2016 End: 03-24-2016 *CMP Complete Metabolic Panel *CMP Complete Metabolic Panel [facility] Work Phone: Start: 09-16-2016 End: 03-24-2016 Lactate dehydrogenase (LDH) *LDH -LDH (Lactate Dehydrogenase) [facility] Work Phone: Start: 09-16-2016 End: 03-24-2016 Urate *Uric Acid Blood [facility] Work Phone: Start: 07-12-2016 End: 08-02-2016 *CBC with Differential *CBC with Differential [facility] Work Phone: Start: 07-12-2016 End: 08-02-2016 *CMP Complete Metabolic Panel *CMP Complete Metabolic Panel [facility] Work Phone: Start: 07-12-2016 End: 07-18-2016 Acth stimulation panel adrenal insufficiency ACTH stimulation panel; for adrenal insufficiency. [facility] Work Phone: Start: 07-12-2016 End: 08-04-2016 Dehydroepiandrosterone sulfate (DHEA-S) *DHEA - DHEA-S (Dehydroepiandrostero ne Sullfate) [facility] Work Phone: Start: 07-12-2016 End: 08-02-2016 Lipid panel [AGGREGATE] *Lipid Profile [facility] Work Phone: Start: 05-03-2016 End: 05-03-2016 Radex shoulder complete minimum 2 views X-Ray, Shoulder [facility] Work Phone: Start: 03-31-2016 End: 03-31-2016 Physical Therapy General [facility] Work Phone: Start: 03-15-2016 End: 03-24-2016 *CBC with Differential *CBC with Differential [facility] Work Phone: Start: 03-15-2016 End: 03-24-2016 *CMP Complete Metabolic Panel *CMP Complete Metabolic Panel [facility] Work Phone: Start: 03-15-2016 End: 03-24-2016 Lactate dehydrogenase (LDH) *LDH -LDH (Lactate Dehydrogenase) [facility] Work Phone: Start: 03-15-2016 End: 03-24-2016 Urate *Uric Acid Blood [facility] Work Phone: Start: 02-18-2016 End: 03-24-2016 Mri any jt upper extremity w/o contrast matrl MRI Joint Upper Extremity [facility] Work Phone: Start: 08-18-2015 End: 03-24-2016 Ct head/brain w/o contrast material CT Head/Brain without contrast [facility] Work Phone: Start: 08-18-2015 End: 08-19-2015 Erythrocyte sedimentation rate *Sedimentation Rate (ESR) [facility] Work Phone: Start: 06-17-2015 End: 09-12-2015 *CBC with Differential *CBC with Differential [facility] Work Phone: Start: 06-17-2015 End: 06-23-2015 *CMP Complete Metabolic Panel *CMP Complete Metabolic Panel [facility] Work Phone: Start: 06-17-2015 End: 06-23-2015 Lactate dehydrogenase (LDH) *LDH -LDH (Lactate Dehydrogenase) [facility] Work Phone: Start: 06-17-2015 End: 06-23-2015 Urate *Uric Acid Blood [facility] Work Phone: Start: 2015 End: 03-24-2016 Radiologic exam knee complete 4/more views X-Ray, Knee [facility] Work Phone: Start: 03-10-2015 End: 03-18-2015 *CBC with Differential *CBC with Differential [facility] Work Phone: Start: 03-10-2015 End: 03-18-2015 *CMP Complete Metabolic Panel *CMP Complete Metabolic Panel [facility] Work Phone: Start: 03-10-2015 End: 09-12-2015 *MISC - Miscellaneous Lab Test #1 *MISC - Miscellaneous Lab Test #1 [facility] Work Phone: Start: 03-10-2015 End: 03-18-2015 Lactate dehydrogenase (LDH) *LDH -LDH (Lactate Dehydrogenase) [facility] Work Phone: Start: 03-10-2015 End: 03-18-2015 Urate *Uric Acid Blood [facility] Work Phone: Start: 10-02-2014 End: 10-07-2014 Mri spinal canal cervical w/o contrast matrl MRI Cervical Spine [facility] Work Phone: Start: 10-02-2014 End: 10-11-2014 Office outpatient visit 25 minutes 35050 Ofc Vst, Est Level IV [facility] Work Phone: Start: 09-19-2014 End: 09-16-2014 *CBC with Differential *CBC with Differential [facility] Work Phone: Start: 09-18-2014 End: 09-12-2015 *CBC with Differential *CBC with Differential [facility] Work Phone: Start: 07-02-2014 End: 09-12-2015 *CBC with Differential *CBC with Differential [facility] Work Phone: Start: 06-21-2014 End: 06-19-2014 Lactate dehydrogenase (LDH) *LDH -LDH (Lactate Dehydrogenase) [facility] Work Phone: Start: 06-20-2014 End: 06-19-2014 *CBC with Differential *CBC with Differential [facility] Work Phone: Start: 06-20-2014 End: 06-19-2014 *CMP Complete Metabolic Panel *CMP Complete Metabolic Panel [facility] Work Phone: Start: 06-20-2014 End: 06-19-2014 Urate *Uric Acid Blood [facility] Work Phone: Start: 05-20-2014 End: 05-21-2014 *CBC with Differential *CBC with Differential [facility] Work Phone: Alanine aminotransfe rase [Enzymatic activity/volume] in Serum or Plasma [facility] Albumin [Mass/volume ] in Serum or Plasma [facility] Alkaline phosphatase [Enzymatic activity/volume] in Serum or Plasma [facility] Anion gap measurement [facility] Aspartate aminotrans ferase [Enzymatic activity/volume] in Serum or Plasma [facility] Bilirubin, total measurement [facility] BUN/Creatinine ratio [facility] Calcium [Mass/volume ] in Serum or Plasma [facility] Carbon dioxide, tota l [Moles/volume] in Serum or Plasma [facility] CBC W Auto Different ial panel - Blood [facility] Chloride [Moles/volu me] in Serum or Plasma [facility] Creatinine [Moles/vo lume] in Serum or Plasma [facility] Cyclic citrullinated peptide IgG Ab [Units/volume] in Serum or Plasma [facility] Free:total prostate specific antigen ratio [facility] Work Phone: Glucose [Mass/volume ] in Serum or Plasma [facility] Hematocrit [Volume F raction] of Blood [facility] Hemoglobin [Mass/vol ume] in Blood [facility] Hepatitis B virus miller rface IgG Ab [Presence] in Serum [facility] Leukocytes [#/volume] in Blood [facility] Lipid 1996 panel - S jaswinder or Plasma [facility] Mean corpuscular hem oglobin concentration determination [facility] Mean corpuscular hem oglobin determination [facility] Measurement of renal function [facility] Neutrophil count [facility] Neutrophil percent d ifferential count [facility] Patient Education WEIGHT%20MANAG EMENT, WEIGHT%20MANAGEMENT [facility] Work Phone: Patient referral [facility] Work Phone: Platelets [#/volume] in Blood [facility] Potassium [Moles/vol ume] in Serum or Plasma [facility] Prostate specific Ag [Mass/volume] in Serum or Plasma [facility] Work Phone: Prostate Specific Ag Free [Mass/volume] in Serum or Plasma [facility] Work Phone: Radionuclide imaging of perfusion of myocardium under exercise stress [facility] Work Phone: Red blood cell count [facility] Red cell distributio n width determination [facility] Rheumatoid factor [P resence] in Serum [facility] Sodium [Moles/volume ] in Serum or Plasma [facility] Testosterone Free [M ass/volume] in Serum or Plasma [facility] Work Phone: Testosterone Free [M ass/volume] in Serum or Plasma [facility] Testosterone Free [M ass/volume] in Serum or Plasma [facility] Testosterone measurement [facility] Work Phone: Testosterone measurement [facility] Total protein measurement [facility] Urea nitrogen [Mass/ volume] in Serum or Plasma [facility] Immunizations Immunization Date Immunization Notes Care Provider [facility] 12-13-[address] True Ibarra Work Phone: [facility] 12-25-[address] True Ibarra Work Phone: [facility] Payers Date Payer Category Payer Medicare [id number] 2016 Private Health Insurance [facility] [id number] 2016 Self-pay [id number] 2016 Unknown [id number] 2016 Unknown [facility] [id number] 2008 Unknown ANTHEM [id number] Medicare [id number] Unknown [id number] Unknown [id number] [id number] Unknown [id number] [id number] Unknown [id number] [id number] Unknown [id number] [id number] Unknown [id number] [id number] Unknown [id number] 2.840.1.125299.3.579.2.462 Unknown [id number] 2.840.1.848512.3.579.2.462 Unknown [id number] [id number]2 Unknown [id number] 2.16.840.1.482813.3.579.2.462 Unknown [id number] 2.16.840.1.827933.3.579.2.462 Unknown [id number] 2.16.840.1.677965.3.579.2.462 Unknown [id number] 2.16.840.1.453333.3.579.2.462 Unknown [id number] 2.16.840.1.185329.3.579.2.462 Unknown [id number] 2.16.840.1.035324.3.579.2.462 Unknown [id number] 2.16.840.1.003633.3.579.2.462 Unknown [id number] [id number]2 Unknown [id number] [id number] Social History Date Type Detail Facility Start: 06-01-2021 End: 03-24-2023 Assertion Unknown if ever smoked [facility] Work Phone: Start: 05-16-2020 Non-smoker [facility] Start: 1955 Sex Assigned At Male [facility] Start: 03-22-2024 [facility] Start: 06-08-2024 Sex Male (finding) [facility] Sex Male [facility] Medical Equipment Procedure Code Equipment Code Equipment [...] Start: 07-31-2019 TIBIAL INSERT FDA Start: 07-31-2019 ([id number]) Drug-eluting coronary artery stent, bioabsorbable-poly francine-coated [id number] FDA Start: 11-09-2020 FEMUR FDA Start: 07-31-2019 [...] Note Date/Time September 28, 2024 7:00 pm [facility] Physical [facility] [place] [address] / REHABILITATION SERVICES DISCHARGE SUMMARY MR#: [id number] Acct: [id number] Name: VAUGHN DINERO Rep #: [id number] : 1955 69 From: Cam Santillan PT, [...] please feel free to call me at [phone]. Thank you for the referral of thispatient. Sincerely, Cam Santillan, PT, ATC Balance/Gait/Functional tests Balance/Special Test Scores Functional Gait Assessment Score: 30 % Disability: 0 Lower Extremity Functional Score: 80 Improvement % Improvement: 75 <Electronically signed by Cam Santillan PT, ATC> 09/28/24 0731 CC: Dr. Regianldo Blank DO; Dr. True Ibarra DO ~ [facility] Signed [facility] Work Phone: 1(424) 485-938107-18-2025 Discharge summary [facility] [address] [place] [address]. [address] [place] [address] / REHABILITATION SERVICES DISCHARGE SUMMARY MR#: [id number] Acct: [id number] Name: VAUGHN DINERO Rep #: [id number] : 1955 69 From: Cam Santillan PT, [...] please feel free to call me at [phone]. Thank you for the referral of thispatient. Sincerely, Cam Santillan PT, ATC Balance/Gait/Functional tests Balance/Special Test Scores Functional Gait Assessment Score: 30 % Disability: 0 Lower Extremity Functional Score: 80 Improvement % Improvement: 75 09/28/24 0731 CC: Dr. Reginaldo Blank DO; Dr. 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 Thank you for the referral of thispatient. Sincerely, Cam Santillan, PT, ATC Balance/Gait/Functional tests Balance/Special Test Scores Lower Extremity Functional Score: 75 Improvement % Improvement: 45 <Electronically signed by Cam Santillan PT, ATC> 06/06/24 0759 CC: Dr. Reginaldo Blank, ; Dr. True Ibarra, ~ [facility] Signed [facility] Work Phone: 1(631) 542-639003-26-2025 Discharge summary [facility] [address] [place] [address]. [address] [place] [address] / REHABILITATION SERVICES DISCHARGE SUMMARY MR#: [id number] Acct: [id number] Name: VAUGHN DINERO Rep #: [id number] : 1955 69 From: Cam Santillan PT, [...] please feel free to call me at [phone]. Thank you for the referral of thispatient. Sincerely, Cam Santillan, PT, ATC Balance/Gait/Functional tests Balance/Special Test Scores Lower Extremity Functional Score: 75 Improvement % Improvement: 45 06/06/24 0759 CC: Dr. Reginaldo Blank DO; Dr. True Ibarra DO ~ [facility] Signed [facility]01-08-2025 Evaluation note* Diagnosis Onset Date Resolution Status [...] Spontaneous bruising chronic Febr uary 2024 3:51pm [facility] Work Phone: 1(694) 989-810804-06-2023 Discharge summary Author Dseirae Mckeon [facility] June 17, 2022 8:00am Note Date/Time June 17, 2022 8:00 am [facility] Occupational Therapy [facility] [address] [place] [address] / REHABILITATION SERVICES DISCHARGE SUMMARY MR#: [id number] Acct: [id number] Name: VAUGHN DINERO Rep #: [id number] : 1955 67 From: Desirae Mckeon OTR/L, [...] this time. % Improvement: 80 Objective/Function: left buyer strength 85# right is 100#. 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 Thank you for the referral of this patient. Sincerely, Desirae Mckeon, OTR/L, CHT <Electronically signed by Desirae Mckeon OTR/Henry, CHT> 06/17/22 0800 CC: Dr. True Ibarra, DO; ESSENCE THORNE ~ [facility] Signed [facility] Work Phone: 1(552) 591-314508-29-2021 Evaluation note* Diagnosis Onset Date Resolution Status History of coronary artery stent placement October acute Essential hypertension chron ic Rotator cuff tendonitis acut e [facility] Work Phone: 1(126) 315-387808-29-2021 Evaluation note* Diagnosis Onset Date Resolution Status Gammopathy resolved Leukopenia resolved Neutropenia resolved Chest pain acute History of coronary artery stent placement October acute Essential hypertension chron ic [facility] Work Phone: 1(970) 928-341008-29-2021 Evaluation note* Diagnosis Onset Date Resolution Status Gammopathy resolved Leukopenia resolved Neutropenia resolved Chest pain acute History of coronary artery stent placement October acute Essential hypertension chron ic Internal derangement of right shoulder acute [facility] Work Phone: 1(888) [phone] Evaluation note* Diagnosis Onset Date Resolution Status Internal derangement of right shoulder acute Bursitis of right shoulder a cute Supraspinatus tendon tear ac [place] History of coronary artery stent placement October acute Essential hypertension chron ic Effusion of right knee acute Tear of medial meniscus of left knee acute Contusion of knee, left acut e Tear of cartilage of left knee acute Tear of medial meniscus of left knee acute [facility] Work Phone: 1(171) 203-967108-29-2021 Evaluation note* Diagnosis Onset Date Resolution Status Internal derangement of right shoulder acute Bursitis of right shoulder a cute Supraspinatus tendon tear ac [place] History of coronary artery stent placement October acute Essential hypertension chron ic Effusion of right knee acute Tear of medial meniscus of left knee acute Contusion of knee, left acut e Tear of cartilage of left knee acute Tear of medial meniscus of left knee acute Tear of cartilage of left knee acute Tear of medial meniscus of left knee acute [facility] Work Phone: 1(375) [phone] Evaluation note* Diagnosis Onset Date Resolution Status [...] of medial meniscus of left knee acute [facility] Work Phone: 1([phone]) 167-317808-29-2021 Evaluation note* Diagnosis Onset Date Resolution Status Effusion of right knee acute Tear of cartilage of left knee acute Tear of medial meniscus of left knee acute History of coronary artery stent placement October acute Essential hypertension chron ic [facility] Work Phone: [phone]) [phone] Evaluation note* Diagnosis Onset Date Resolution Status Effusion of right knee acute Tear of cartilage of left knee acute Tear of medial meniscus of left knee acute History of coronary artery stent placement October acute Essential hypertension chron ic Left hamstring muscle strain acute Gammopathy resolved Leukopenia resolved Anemia acute Elevated serum creatinine ac [place] Leukopenia resolved [facility] Work Phone: 1([phone]) 484-880208-29-2021 Evaluation note* Diagnosis Onset Date Resolution Status History of coronary artery stent placement October acute Essential hypertension chron ic Left hamstring muscle strain acute Gammopathy resolved Leukopenia resolved Anemia acute Elevated serum creatinine ac [place] Leukopenia resolved Arthritis of right acromioclavicular joint acute [facility] Work Phone: [phone]) [phone] Evaluation note* Diagnosis Onset Date Resolution Status History of coronary artery stent placement October acute Essential hypertension chron ic Left hamstring muscle strain acute Gammopathy resolved Leukopenia resolved Anemia acute Elevated serum creatinine ac [place] Leukopenia resolved Arthritis of right acromioclavicular joint acute Right rotator cuff tendinitis acute [facility] Work Phone: [phone]) 322-760308-29-2021 Evaluation note* Diagnosis Onset Date Resolution Status History of coronary artery stent placement October acute Essential hypertension [facility] Work Phone: Evaluation noteThere may be information available, but it has not been provided by the sender.[facility] Work Phone: Evaluation note* Diagnosis Onset Date Resolution Status Effusion of right knee acute Tear of medial meniscus of left knee acute Tibialis posterior tendonitis acute [facility] Work Phone: Evaluation note* Diagnosis Onset Date Resolution Status Tibialis posterior tendonitis acute Gammopathy resolved Leukopenia resolved Neutropenia resolved [facility] Work Phone: Evaluation note* Diagnosis Onset Date Resolution Status Tibialis posterior tendonitis acute Gammopathy resolved Leukopenia resolved Neutropenia resolved Chest pain acute History of coronary artery stent placement October acute Essential hypertension [facility] Work Phone: Evaluation note* Diagnosis Onset Date Resolution Status Left hamstring muscle strain acute Gammopathy resolved Leukopenia resolved Anemia acute Elevated serum creatinine [place] Leukopenia resolved Arthritis of right acromioclavicular joint acute Right rotator cuff tendinitis acute [facility] Work Phone: Evaluation note* Diagnosis Onset Date Resolution Status Gammopathy resolved Leukopenia resolved Anemia acute Elevated serum creatinine [place] Leukopenia resolved Arthritis of right acromioclavicular joint acute Right rotator cuff tendinitis acute [facility] Work Phone: Evaluation note* Diagnosis Onset Date Resolution Status Anemia acute Elevated serum creatinine [place] Leukopenia resolved Arthritis of right acromioclavicular joint acute Right rotator cuff tendinitis acute Spontaneous bruising acute Gammopathy resolved Leukopenia resolved [facility] Work Phone: Evaluation note* Diagnosis Onset Date Resolution Status Arthritis of right acromioclavicular joint acute Right rotator cuff tendinitis acute Spontaneous bruising acute Gammopathy resolved Leukopenia resolved Rotator cuff tear, right non eactive Right rotator cuff tendinitis acute Right shoulder pain acute Tear of right rotator cuff a cute Spontaneous bruising acute [facility] Work Phone: Evaluation note* Diagnosis Onset Date Resolution Status Spontaneous bruising acute Gammopathy resolved Leukopenia resolved Rotator cuff tear, right non eactive Right rotator cuff tendinitis acute Right shoulder pain acute Tear of right rotator cuff a cute Spontaneous bruising acute History of coronary artery stent placement October acute Essential hypertension chron ic [facility] Work Phone: Evaluation noteNo assessment information available [facility] Work Phone: Hospital Discharge instructionsAmbulatory Orders* Return to Office Location: None Selected [facility] Work Phone: Instructions* Instruction Description Start Date Completed [facility] Work Phone: Instructions* Instruction Description Start Date Completed [facility] Work Phone: Reason for referral (narrative)No reason for referral information availableWA[facility] Work [facility]: Summary Purpose Family History No [...] No May 29, 2021 12:50pm 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 No May 29 12:50pm Advance Directive Response Recorded Date/ Time Advance Directives No November 9:21am Living Will No May 29, 2021 11:50am 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 No May 29 11:50am Advance Directive Response Recorded Date/ Time Advance Directives No February 3:44pm Living Will No March 02, 2 023 3:44pm 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 No March 02, 2023 3:44pm Advance Directive Response Recorded Date/ Time Advance Directives No February 4:44pm Living Will No March 02, 023 4:44pm 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 No March 02, 2023 4:44pm Advance Directive Response Recorded Date/ Time Living Will No March 02, 2 023 4:44pm Do you have a Healthcare 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? No March 02, 2023 4:44pm Advance Directives [...] section and content) DATE CREATED AUTHOR 09/02/2017 [facility] DATE CREATED AUTHOR AUTHOR'S ORGANIZ ATION 01/25/2025 [facility] Reason for Visit (unrecogniz ed section [...] Provider, Referrin g Provider Active Cody Ryder MENTAL HEALTH COORDINATOR, MENTAL HEALTH COORDINATOR-C Attending Provider Active Team Status: Inactive Member [...] Dr. Reginaldo Nava MD Active Ilsa Santillan MENTAL HEALTH COORDINATOR, MENTAL HEALTH COORDINATOR-C Attending Provider Active Team Status: Active Member [...] DO Primary Care Provider Active Cody Ryder MENTAL HEALTH COORDINATOR, MENTAL HEALTH COORDINATOR-C Attending Provider Active Team Status: Inactive Member Role Status Dates Dr. True Ibarra DO Primary Care Provider Active Cody Ryder MENTAL HEALTH COORDINATOR, MENTAL HEALTH COORDINATOR-C Attending Provider, Referring Pro vider Active Team Status: Active Member Role Status Dates Dr. True Ibarra DO Primary Care Provider Active Dr. Ricardo Garner MD Attending Provider Active Cody Ryder MENTAL HEALTH COORDINATOR, MENTAL HEALTH COORDINATOR-C Referring Provider Active Team Status: Inactive Member [...] True Ibarra DO Primary Care Provider Active Coyd Ryder MENTAL HEALTH COORDINATOR, MENTAL HEALTH COORDINATOR-C Attending Provider, Referring Pro vider Active Dr. [...] 2024 End: March 22, 2024 Cody Ryder MENTAL HEALTH COORDINATOR, MENTAL HEALTH COORDINATOR-C Attending Provider Active S tart: March 22, [...] Inactive Member Role Status Dates Ilsa Santillan MENTAL HEALTH COORDINATOR, MENTAL HEALTH COORDINATOR-C Attending Provider Active Start: April 26, 2024 [...] 2024 End: April 26, 2024 Ilsa Santillan MENTAL HEALTH COORDINATOR, MENTAL HEALTH COORDINATOR-C Attending Provider Active Start: April 26, 2024 End: April 26, 2024 Ilsa Santillan MENTAL HEALTH COORDINATOR, MENTAL HEALTH COORDINATOR-C Referring Provider Active Start: April 26, 2024 [...] BE BASED ON THE PRIMARY CLINICAL RECORDS. [employer] provides no warranty or guarantee of the accuracy or completeness of information in this document.
== END | disposition home or self-care (01) ==
LOC: US 07:23
PROVIDERS: PCP Family Medicine; Referring Provider Internal Medicine Rheumatology; Visit Provider Internal Medicine Rheumatology
DX: M06.4 Inflammatory polyarthropathy (principal); M17.0 Bilateral primary osteoarthritis of knee; Z79.899 Other long term (current) drug therapy
CPT/HCPCS: 76705

== ENCOUNTER → 2025-03-12 | Outpatient (CLI) | payer MEDICARE, OTHER, SELFPAY ==
[2023-03-02 15:44] VITALS: BMI 25.8
--- NOTE | 2025-03-12 13:42 | MRI_ITS ---
PROCEDURE: RIGHT UPPER EXT JOINT ONLY(ROUTINE) 03/12/2025 REASON FOR EXAM: CHRONIC RIGHT SHOULDER PAIN TECHNIQUE: Procedure Code: [id number] Modality: MR Procedure: UPPER EXT JOINT ONLY(ROUTINE) Multiplanar and multisequence images were obtained without IV contrast administration. COMPARISON: COMPARISON: MRI right shoulder 02/16/2023. FINDINGS: Rotator cuff: Slight atrophy of the supraspinatus muscle. New surgical changes of rotator cuff tendon repair. New attenuation with thinning, fraying and mild partial tearing along the bursal surface of the distal infraspinatus tendon. 2.1 cm wide full-thickness tear defect in the mid posterior supraspinatus tendon proximal to the insertion, exhibiting as much as 2.7 cm of retraction, larger than the pre-surgical tear defect. Moderate grade interstitial and deep margin longitudinal partial tearing of the mid to distal subscapularis tendon, similar to previous. Suspected long biceps tenodesis since previous. Labrum:. Mild fraying of the anterior labrum, without anterior or posterior labral tear. No inferior labral tear. Attenuation and blunting of the superior labrum compared to previous, suggesting chronic tear or interval debridement. No definite paralabral cyst. Bones and soft tissues: No coracoclavicular ligament tear. Os acromiale. Moderate AC joint arthrosis. Degenerative signal changes and cortical irregularities in the humeral head. Moderate glenohumeral joint effusion, similar to previous, with debris and bodies. There appeared to be acromioplasty changes since the prior exam. No coracoclavicular ligament tear. Mild marginal osseous ridging off the glenohumeral joint, with extensive chondral thinning and areas to bone along both articular surfaces, compatible with arthrosis, slightly progressed since the prior exam. Excess subacromial/subdeltoid bursal fluid. MRI/Upper Ext Joint Only(Routine) IMPRESSION: Retracted full-thickness tear defect in the posterior mid supraspinatus tendon, larger than the pre-surgical tear defect, with evidence of rotator cuff tendon repair since the prior exam. Moderate grade interstitial deep margin longitudinal partial tearing of the mid to distal subscapularis tendon, similar to previous. Glenohumeral joint arthrosis with effusion, debris and bodies, chondral degener ation and areas to bone along both surfaces, slightly more severe. Attenuation and blunting of the superior labrum compared to previous, suggestin g chronic tear or debridement. Mild fraying of the anterior labrum. New attenuation, thinning, fraying and mild partial tearing of the bursal surfa ce of the infraspinatus tendon. Suspected long biceps tenodesis since previous. Moderate AC joint arthrosis. Os acromiale. Reading Location: [id number]
== END | disposition home or self-care (01) ==
LOC: MRI 13:35
PROVIDERS: PCP Family Medicine; Referring Provider Orthopaedic Surgery; Visit Provider Orthopaedic Surgery
DX: M25.511 Pain in right shoulder (principal); M75.101 Unspecified rotator cuff tear or rupture of right shoulder, not specified as traumatic; G89.29 Other chronic pain
CPT/HCPCS: 73221